=== PATIENT | female | born 1960 | race Caucasian/White ===

== ENCOUNTER 2016-05-24 20:24 | Emergency (ER) | payer BC ==
[2016-05-24] MEDS ORDERED: IPRATROPIUM 0.5MG/ALBUTEROL 2.5MG INH SOL UD 3ML (DUONEB)(J7620) As Ordered ONE (20:42)
[2016-05-24] MEDS ORDERED: methylPREDNISolone INJ 125 MG/2 ML VIAL (J2930) As Ordered ONE (20:52)
[2016-05-24] MEDS ORDERED: ACETAMINOPHEN 325 MG TAB As Ordered ONE (20:52)
[2016-05-24 21:23] LABS: BASO # 0.1 K/mm3 (0.0-0.2); EOS # 0.1 K/mm3 (0.0-0.50); EOS % 1.1 % (0.0-3.0); LARGE UNSTAINED CELL # 0.1 K/mm3 (0.0-0.4); LARGE UNSTAINED CELL % 1.1 % (0.0-4.0); LYMPH # 0.9 K/mm3 (1.5-4.5); LYMPH % 9.9 % (24.0-44.0); MEAN CORPUSCULAR HGB CONC 32.4 g/dl (32.0-36.5); MEAN CORPUSCULAR VOLUME 98.6 fl (80.0-96.0); MONO # 0.6 K/mm3 (0.0-0.8); MONO % 7.1 % (0.0-5.0); NEUTROPHILS # 6.4 K/mm3 (1.8-7.7); NEUTROPHILS % 79.8 % (36.0-66.0); PLATELET COUNT, AUTOMATED 259 k/mm3 (150-450)
[2016-05-24 21:43] LABS: ANION GAP 6 MEQ/L (8-16); BLOOD UREA NITROGEN 5 MG/DL (7-18); CALCIUM LEVEL 8.9 MG/DL (8.5-10.1); CARBON DIOXIDE LEVEL 30 MEQ/L (21-32); CHLORIDE LEVEL 103 MEQ/L (98-107); CREATININE FOR GFR 0.66 MG/DL (0.55-1.02); GLOMERULAR FILTRATION RATE > 60.0 (>51); GLUCOSE, FASTING 94 MG/DL (70-105); POTASSIUM SERUM 3.9 MEQ/L (3.5-5.1); SODIUM LEVEL 139 MEQ/L (136-145)
[2016-05-24] MEDS ORDERED: ALBUTEROL SULFATE 2.5 MG/0.5 ML INH NEB SOLN As Ordered ONE (22:08)
[2016-05-24] MEDS ORDERED: MOXIFLOXACIN 400 MG TAB As Ordered ONE (22:44)
--- NOTE | 2016-05-24 23:19 | EDDOCDS ---
Physician Documentation [facility] Name: Jose Puentes Age: 55 yrs Sex: Female : 1960 Arrival Date: 05/24/2016 Time: 20:24 Bed 14 Private MD: Sherron Valerio Disposition: 05/24/16 23:10 Discharged to Home/Self Care. Impression: Emphysema, Other forms of dyspnea. - Condition is Stable. - Discharge Instructions: Shortness of Breath. - Prescriptions for Moxifloxacin 400 mg Oral Tablet - take 1 tablet by ORAL route once daily; 5 tablet. Prednisone 10 mg Oral Tablet - take 1 tablet by ORAL route as directed Day1-3:6 po,day4-5:5 po,day6-7: 4 po,day8-9:3 po,vdn78-84:2 po,day 12-14:1 po; 49 tablet. - Medication Reconciliation, Local Pharmacy Hours form. - Follow up: Sherron Valerio; When: 4 - 5 days; Reason: Recheck today's complaints, Continuance of care. - Problem is an acute exacerbation. - Symptoms have improved. Historical: - Allergies: no known allergies; - Home Meds: 1. atenolol 25 mg Oral tab 1 tab once daily 2. BuSpar Oral 10 mg daily 3. levothyroxine 112 mcg oral tab 4. omeprazole 40 mg Oral cpDR 1 cap once daily - PMHx: Depression; Emphysema; graves disease; - PSHx: Hysterectomy; Cholecystectomy; Appendectomy; - Social history: Smoking status: Patient uses tobacco products, current every day smoker. No barriers to communication noted, The patient speaks fluent Cuban. - Family history: Pertinent for recent exposure to family members with viral URI.. - : The pt / caregiver states he / she is not on anticoagulants. Home medication list is obtained from the patient. - Exposure Risk Screening:: None identified. 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 4 in. (162.56 cm) (R); Pain 0/10; 21:29 BP 119 / 63 (auto/); mv5 21:29 Pulse 144 MON; Pulse Ox 93% ; mv5 21:44 BP 126 / 72 (auto/); mv5 21:45 Pulse 128 MON; Pulse Ox 92% ; mv5 21:59 BP 128 / 71 (auto/); mv5 22:00 Pulse 126 MON; Pulse Ox 90% ; mv5 22:14 BP 113 / 70 (auto/); mv5 22:15 Pulse 132 MON; Pulse Ox 88% ; mv5 22:29 BP 101 / 59 (auto/); mv5 22:30 Pulse 140 MON; Pulse Ox 87% ; mv5 22:44 BP 100 / 61 (auto/); mv5 22:44 Pulse 140 MON; Pulse Ox 87% ; mv5 20:26 Body Mass Index 18.54 (48.99 kg, 162.56 cm) gr2 MDM: 20:40 Solu-MEDROL 125 mg IVP once ordered. ke 20:40 -Blood Culture (Adults Only), peripheral from different site, or from device/port/PICC ke etc. if present ordered. 20:40 Senior Industrial Engineer/Pulse Ox/q 15 min VS ordered. ke 20:40 IV Saline Lock ordered. ke 20:40 Oxygen at 4L/Min NC or Home dosage ordered. ke 20:40 Rhythm Strip to chart ordered. ke 20:40 Albuterol-Ipratropium 1 neb Nebulizer every 20 minutes x3 ordered. ke 20:40 Call Respiratory ordered. ke 20:40 Acetaminophen Tablet 650 mg PO once ordered. ke 20:40 -Blood Culture Ordered. EDMS 20:40 Basic Metabolic Profile Ordered. EDMS 20:40 CBC with Diff Ordered. EDMS 20:40 Chest, 2 View (pa\E\lat) Ordered. EDMS 20:42 Call Respiratory complete. kb5 20:44 -Blood Culture (Adults Only), peripheral from different site, or from device/port/PICC kb5 etc. if present complete. 20:45 BLOOD CULTURES Ordered. EDMS 21:19 Financial registration complete. zo 21:47 Levalbuterol 1.25 mg Nebulizer once ordered. ke 21:48 Basic Metabolic Profile Reviewed. ke 21:48 CBC with Diff Reviewed. ke 22:02 [place] [place] Agreement was scanned into [email or web address] and attached to record. zo 22:37 Moxifloxacin 400 mg PO once ordered. ke Administered Medications: 20:46 Drug: Albuterol-Ipratropium 1 neb [ipratropium-albuterol 0.5 mg-3 mg(2.5 mg base)/3 mL dk nebulization soln (1 neb)] Route: Nebulizer; 20:57 Drug: Solu-MEDROL 125 mg [Solu-Medrol 500 mg intravenous solution (125 mg)] Route: IVP; mv5 Site: left antecubital; 20:57 Drug: Acetaminophen 650 mg [acetaminophen 325 mg tablet (2 tabs)] Route: PO; mv5 22:46 Follow up: Response: No Adverse Reaction mv5 21:07 Drug: Albuterol-Ipratropium 1 neb [ipratropium-albuterol 0.5 mg-3 mg(2.5 mg base)/3 mL dk nebulization soln (1 neb)] Route: Nebulizer; 21:17 Drug: Albuterol-Ipratropium 1 neb [ipratropium-albuterol 0.5 mg-3 mg(2.5 mg base)/3 mL dk nebulization soln (1 neb)] Route: Nebulizer; 22:46 Drug: Moxifloxacin 400 mg [moxifloxacin 400 mg tablet (1 tabs)] Route: PO; mv5 23:18 Follow up: Response: No Adverse Reaction mv5 Signatures: Dispatcher [employer]Host EDMS Beck Rivers, REMELT WORKER REMELT WORKER Cristine Akers Kristopher, HUB INVENTORY SPECIALIST HUB INVENTORY SPECIALIST kb5 Shahla Solomon RN RN 5 Ysabel Tracey RN RN mv5 Krysten Coello The chart was reviewed and I authenticate all verbal orders and agree with the evaluation and treatment provided.Attachments: 22:02 [facility] Payment Agreement zo MTDD
--- NOTE | 2016-05-24 23:19 | EDDOCDS ---
Nurse's Notes 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 Adult Sepsis Screening: The patient does not have new or worsening altered mentation. Patient's respiratory rate is less than 22. Systolic blood pressure is greater than 100. Patient has a qSOFA score of 0- Negative Sepsis Screen. Suicide/Homicide risk assessment- the patient denies having any suicidal and/or homicidal ideations and does not present with any other emotional, behavioral or mental health complaints. Status: Patient is not a hotel or motel room service supervisor or dependent. Transition of care: patient was not received from another setting of care. 20:30 Acuity: MELIZA Level 3 tm5 20:30 Method Of Arrival: Walkin/Carried/Asstd tm5 20:32 Red Flag criteria, Vitals stable, pt. appears in no acute distress. Triage and then lf1 direct to room. Charge nurse notified. Triage Assessment: 20:33 General: Appears in no apparent distress, Behavior is appropriate for age, cooperative. tm5 Pain: Denies pain. Pt Declines HIV testing. Neurological: Level of Consciousness is awake, alert, Oriented to person, place, time. Respiratory: Onset: The symptoms/episode began/occurred yesterday, Airway is patent Respiratory effort is even, unlabored, Respiratory pattern is regular, symmetrical. Derm: Skin is pink, warm & dry. 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 atenolol 25 mg Oral tab 1 tab once daily 2. BuSpar Oral 10 mg daily 3. levothyroxine 112 mcg oral tab 4. omeprazole 40 mg Oral cpDR 1 cap once daily - PMHx: Depression; Emphysema; graves disease; - PSHx: Hysterectomy; Cholecystectomy; Appendectomy; - Social history: Smoking status: Patient uses tobacco products, current every day smoker. No barriers to communication noted, The patient speaks fluent Angolan. - Family history: Pertinent for recent exposure to family members with viral URI.. - : The pt / caregiver states he / she is not on anticoagulants. Home medication list is obtained from the patient. - Exposure Risk Screening:: None identified. Screenin:33 Screening information is obtained from the patient. Fall risk: No risks identified. tm5 Assistance ADL's: requires no assistance with activities of daily living. Abuse/DV Screen: The patient / caregiver reports he/she is: not in a situation that causes fear, pain or injury. Nutritional screening: No deficits noted. Advance Directives: Currently, there is no health care proxy. There is no active DNR order. home support is adequate. Assessment: 21:14 General: Appears slender, uncomfortable, well nourished. Pain: Denies pain. mv5 Neurological: Level of Consciousness is awake, alert, Oriented to person, place, time. Cardiovascular: Capillary refill is > 3 seconds Heart tones S1 S2 present Rhythm is sinus tachycardia No ectopy. Cardiovascular: Chest pain is denied. Respiratory: Airway is patent Respiratory effort is even, labored, Respiratory pattern is regular, symmetrical, Breath sounds are diminished bilaterally. in left posterior lower lobe and right posterior lower lobe. GI: No deficits noted. : No deficits noted. Derm: Skin is pink, warm & dry. 21:49 General: Appears in no apparent distress, Pt notes mild improvement of symptoms mv5 following nebulizers.. Neurological: No deficits noted. Cardiovascular: Rhythm is sinus tachycardia No ectopy. Respiratory: Airway is patent Respiratory effort is even, unlabored, Respiratory pattern is regular, symmetrical. Derm: Skin is pink, warm & dry. 22:47 General: Appears in no apparent distress, comfortable, Behavior is cooperative, mv5 pleasant. Pain: Denies pain. Neurological: No deficits noted. Cardiovascular: Rhythm is sinus tachycardia No ectopy. Chest pain is denied. Respiratory: Airway is patent Respiratory effort is even, unlabored, Respiratory pattern is regular, symmetrical, Pt reports significant improvement of respiratory symptoms. Derm: Skin is pink, warm & dry. 23:04 General: Appears in no apparent distress, Pt ambulated in hallway with sP02 monitoring, mv5 89-91% on room air without increased work of breathing or c/o shortness of breath. Provider aware.. Pain: Denies pain. Respiratory: Airway is patent Respiratory effort is even, unlabored, Respiratory pattern is regular, symmetrical. Derm: Skin is pink, warm & dry. Vital Signs: 20:26 BP 168 / 99; Pulse 105; Resp 20 S; Temp 100.5(O); Pulse Ox 95% on R/A; Weight 48.99 kg gr2 (R); Height 5 ft. 4 in. (162.56 cm) (R); Pain 0/10; 21:29 BP 119 / 63 (auto/); mv5 21:29 Pulse 144 MON; Pulse Ox 93% ; mv5 21:44 BP 126 / 72 (auto/); mv5 21:45 Pulse 128 MON; Pulse Ox 92% ; mv5 21:59 BP 128 / 71 (auto/); mv5 22:00 Pulse 126 MON; Pulse Ox 90% ; mv5 22:14 BP 113 / 70 (auto/); mv5 22:15 Pulse 132 MON; Pulse Ox 88% ; mv5 22:29 BP 101 / 59 (auto/); mv5 22:30 Pulse 140 MON; Pulse Ox 87% ; mv5 22:44 BP 100 / 61 (auto/); mv5 22:44 Pulse 140 MON; Pulse Ox 87% ; mv5 20:26 Body Mass Index 18.54 (48.99 kg, 162.56 cm) gr2 Vitals: 20:26 Log In Time: May 24, 2016 at 20:26. RN notified that patient meets Red Flag gr2 criteria. ED Course: 20:26 Patient visited by Cristina Gooden. gr2 20:26 Sherron Valerio is Private Physician. gr2 20:26 Patient moved to Waiting gr2 20:28 Patient visited by Cristina Gooden. gr2 20:30 Patient moved to Pre RCE gr2 20:31 Triage Initiated tm5 20:34 Ysabel Tracey,RN is Primary Nurse. tm5 20:34 Patient moved to 14 tm5 20:36 [facility] ke 20:36 Patient visited by Beck Rivers FNP. ke 20:36 Patient visited by Beck Rivers FNP. ke 20:57 -Blood Culture Sent. mv5 20:57 Basic Metabolic Profile Sent. mv5 20:57 CBC with Diff Sent. mv5 21:13 BLOOD CULTURES Sent. mv5 21:14 The patient / caregiver is instructed regarding the plan of care and ED course. mv5 21:14 Inserted saline lock: 18 gauge in left antecubital area and blood collected. The mv5 patient tolerated the procedure well. 21:25 Patient visited by Beck Rivers FNP. ke 21:46 Patient visited by Beck Rivers FNP. ke 22:02 [facility] Payment Agreement was scanned into [employer] and attached to record. zo 22:18 Patient visited by Ciaran Albarado PCA. stevenv 22:40 Patient visited by Beck Rivers FNP. ke 23:01 Patient visited by Beck Rivers FNP. ke 23:09 Sherron Valerio is Referral Physician. ke 23:16 Discontinued intact, bleeding controlled, pressure dressing applied, No mv5 redness/swelling at site. No procedures done that require assistance. Administered Medications: 20:46 Drug: Albuterol-Ipratropium 1 neb [ipratropium-albuterol 0.5 mg-3 mg(2.5 mg base)/3 mL dk nebulization soln (1 neb)] Route: Nebulizer; 20:57 Drug: Solu-MEDROL 125 mg [Solu-Medrol 500 mg intravenous solution (125 mg)] Route: IVP; mv5 Site: left antecubital; 20:57 Drug: Acetaminophen 650 mg [acetaminophen 325 mg tablet (2 tabs)] Route: PO; mv5 22:46 Follow up: Response: No Adverse Reaction mv5 21:07 Drug: Albuterol-Ipratropium 1 neb [ipratropium-albuterol 0.5 mg-3 mg(2.5 mg base)/3 mL dk nebulization soln (1 neb)] Route: Nebulizer; 21:17 Drug: Albuterol-Ipratropium 1 neb [ipratropium-albuterol 0.5 mg-3 mg(2.5 mg base)/3 mL dk nebulization soln (1 neb)] Route: Nebulizer; 22:46 Drug: Moxifloxacin 400 mg [moxifloxacin 400 mg tablet (1 tabs)] Route: PO; mv5 23:18 Follow up: Response: No Adverse Reaction mv5 RT: 20:46 Initial Med Neb Given as ordered Patient was instructed and evaluated on procedure dk Patient tolerated procedure well without adverse effect. Oxygen is room air. Respiratory: Breath sounds are diminished bilaterally. 21:07 Subsequent Med Neb Given as ordered Patient tolerated procedure well without adverse dk effect. Oxygen is room air. Respiratory: Breath sounds are coarse Breath sounds are diminished. 21:17 Subsequent Med Neb Given as ordered Patient tolerated procedure well without adverse dk effect. Oxygen is room air. Respiratory: Breath sounds are coarse Breath sounds are diminished. Order Results: Lab Order: Basic Metabolic Profile; SPEC'M 05/24/16 20:45 Test: GLUCOSE, FASTING; Value: 94; Range: 70-105; Units: MG/DL; Status: F Test: BLOOD UREA NITROGEN; Value: 5; Range: 7-18; Abnormal: Below low normal; Units: MG/DL; Status: F Test: CREATININE FOR GFR; Value: 0.66; Range: 0.55-1.02; Units: MG/DL; Status: F Test: GLOMERULAR FILTRATION RATE; Value: > 60.0; Range: >51; Status: F Test: SODIUM LEVEL; Value: 139; Range: 136-145; Units: MEQ/L; Status: F Test: POTASSIUM SERUM; Value: 3.9; Range: 3.5-5.1; Units: MEQ/L; Status: F Test: CHLORIDE LEVEL; Value: 103; Range: 98-107; Units: MEQ/L; Status: F Test: CARBON DIOXIDE LEVEL; Value: 30; Range: 21-32; Units: MEQ/L; Status: F Test: ANION GAP; Value: 6; Range: 8-16; Abnormal: Below low normal; Units: MEQ/L; Status: F Test: CALCIUM LEVEL; Value: 8.9; Range: 8.5-10.1; Units: MG/DL; Status: F Test Note: ; Units are mL/min/1.73 m2 Chronic Kidney Disease Staging per NKF: Stage I & II GFR >=60 Normal to Mildly Decreased Stage III GFR 30-59 Moderately Decreased Stage IV GFR 15-29 Severely Decreased Stage V GFR <15 Very Little GFR Left ESRD GFR <15 on HUMAN SERVICE SPECIALIST Lab Order: CBC with Diff; SPEC'M 05/24/16 20:45 Test: WHITE BLOOD COUNT; Value: 8.0; Range: 4.0-10.0; Units: K/mm3; Status: F Test: RED BLOOD COUNT; Value: 5.12; Range: 4.00-5.40; Units: M/mm3; Status: F Test: HEMOGLOBIN; Value: 16.4; Range: 12.0-16.0; Abnormal: Above high normal; Units: g/dl; Status: F Test: HEMATOCRIT; Value: 50.5; Range: 36.0-47.0; Abnormal: Above high normal; Units: %; Status: F Test: MEAN CORPUSCULAR VOLUME; Value: 98.6; Range: 80.0-96.0; Abnormal: Above high normal; Units: fl; Status: F Test: MEAN CORPUSCULAR HEMOGLOBIN; Value: 32.0; Range: 27.0-33.0; Units: pg; Status: F Test: MEAN CORPUSCULAR HGB CONC; Value: 32.4; Range: 32.0-36.5; Units: g/dl; Status: F Test: RED CELL DISTRIBUTION WIDTH; Value: 12.0; Range: 11.5-14.5; Units: %; Status: F Test: PLATELET COUNT, AUTOMATED; Value: 259; Range: 150-450; Units: k/mm3; Status: F Test: NEUTROPHILS %; Value: 79.8; Range: 36.0-66.0; Abnormal: Above high normal; Units: %; Status: F Test: LYMPH %; Value: 9.9; Range: 24.0-44.0; Abnormal: Below low normal; Units: %; Status: F Test: MONO %; Value: 7.1; Range: 0.0-5.0; Abnormal: Above high normal; Units: %; Status: F Test: EOS %; Value: 1.1; Range: 0.0-3.0; Units: %; Status: F Test: BASO %; Value: 1.0; Range: 0.0-1.0; Units: %; Status: F Test: LARGE UNSTAINED CELL %; Value: 1.1; Range: 0.0-4.0; Units: %; Status: F Test: NEUTROPHILS #; Value: 6.4; Range: 1.8-7.7; Units: K/mm3; Status: F Test: LYMPH #; Value: 0.9; Range: 1.5-4.5; Abnormal: Below low normal; Units: K/mm3; Status: F Test: MONO #; Value: 0.6; Range: 0.0-0.8; Units: K/mm3; Status: F Test: EOS #; Value: 0.1; Range: 0.0-0.50; Units: K/mm3; Status: F Test: BASO #; Value: 0.1; Range: 0.0-0.2; Units: K/mm3; Status: F Test: LARGE UNSTAINED CELL #; Value: 0.1; Range: 0.0-0.4; Units: K/mm3; Status: F Outcome: 23:10 Discharge ordered by Provider. amy 23:16 Discharge Assessment: Patient awake, alert and oriented x 3. No cognitive and/or mv5 functional deficits noted. Patient verbalized understanding of disposition instructions. patient administered narcotics - no. The following High Risk Discharge criteria are identified: None. Discharged to home with family. Condition: stable. Discharge instructions given to patient, Demonstrated understanding of Pt was receptive of discharge instructions/ teaching. Prescriptions given X 2. No special radiology studies were completed. Property sent home with patient. 23:18 Patient left the ED. mv5 Signatures: Beck Rivers, SEISMOMETER OPERATOR SEISMOMETER OPERATOR Krysten Francis,RT RT Cristine Vasquez Lisa,RN RN lf1 Cristina Gooden gr2 Ciaran Albarado, CAPACITY MANAGER CAPACITY MANAGER Shahla Franks,RN RN tm5 Ysabel Tracey,RN RN mv5 MTDD
--- NOTE | 2016-05-25 07:55 | REP ---
TWO VIEWS OF THE CHEST: The present study is compared to that of 03/27/2016. The heart, great vessels, and remaining mediastinum are normal. The lung volumes show significant increase with flattening of the hemidiaphragms. There is no consolidation or opacities of the lungs. Degenerative spurs are noted in the spine. IMPRESSION: The findings are consistent with obstructive airway disease. No evidence for pneumonia on this study. Unreviewed
--- NOTE | 2016-05-27 00:18 | EDDOCDS ---
Physician Documentation [facility] Name: Jose Puentes Age: 55 yrs Sex: Female : 1960 Arrival Date: 05/24/2016 Time: 20:24 Bed 14 Private MD: Sherron Valerio Disposition: 05/24/16 23:10 Discharged to Home/Self Care. Impression: Emphysema, Other forms of dyspnea. - Condition is Stable. - Discharge Instructions: Shortness of Breath. - Prescriptions for Moxifloxacin 400 mg Oral Tablet - take 1 tablet by ORAL route once daily; 5 tablet. Prednisone 10 mg Oral Tablet - take 1 tablet by ORAL route as directed Day1-3:6 po,day4-5:5 po,day6-7: 4 po,day8-9:3 po,rze86-74:2 po,day 12-14:1 po; 49 tablet. - Medication Reconciliation, Local Pharmacy Hours form. - Follow up: Sherron Valerio; When: 4 - 5 days; Reason: Recheck today's complaints, Continuance of care. - Problem is an acute exacerbation. - Symptoms have improved. Historical: - Allergies: no known allergies; - Home Meds: 1. atenolol 25 mg Oral tab 1 tab once daily 2. BuSpar Oral 10 mg daily 3. levothyroxine 112 mcg oral tab 4. omeprazole 40 mg Oral cpDR 1 cap once daily - PMHx: Depression; Emphysema; graves disease; - PSHx: Hysterectomy; Cholecystectomy; Appendectomy; - Social history: Smoking status: Patient uses tobacco products, current every day smoker. No barriers to communication noted, The patient speaks fluent Hebrew. - Family history: Pertinent for recent exposure to family members with viral URI.. - : The pt / caregiver states he / she is not on anticoagulants. Home medication list is obtained from the patient. - Exposure Risk Screening:: None identified. 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 4 in. (162.56 cm) (R); Pain 0/10; 21:29 BP 119 / 63 (auto/); mv5 21:29 Pulse 144 MON; Pulse Ox 93% ; mv5 21:44 BP 126 / 72 (auto/); mv5 21:45 Pulse 128 MON; Pulse Ox 92% ; mv5 21:59 BP 128 / 71 (auto/); mv5 22:00 Pulse 126 MON; Pulse Ox 90% ; mv5 22:14 BP 113 / 70 (auto/); mv5 22:15 Pulse 132 MON; Pulse Ox 88% ; mv5 22:29 BP 101 / 59 (auto/); mv5 22:30 Pulse 140 MON; Pulse Ox 87% ; mv5 22:44 BP 100 / 61 (auto/); mv5 22:44 Pulse 140 MON; Pulse Ox 87% ; mv5 20:26 Body Mass Index 18.54 (48.99 kg, 162.56 cm) gr2 MDM: 20:40 Solu-MEDROL 125 mg IVP once ordered. ke 20:40 -Blood Culture (Adults Only), peripheral from different site, or from device/port/PICC ke etc. if present ordered. 20:40 Bookmaker Map/Pulse Ox/q 15 min VS ordered. ke 20:40 IV Saline Lock ordered. ke 20:40 Oxygen at 4L/Min NC or Home dosage ordered. ke 20:40 Rhythm Strip to chart ordered. ke 20:40 Albuterol-Ipratropium 1 neb Nebulizer every 20 minutes x3 ordered. ke 20:40 Call Respiratory ordered. ke 20:40 Acetaminophen Tablet 650 mg PO once ordered. ke 20:40 -Blood Culture Ordered. EDMS 20:40 Basic Metabolic Profile Ordered. EDMS 20:40 CBC with Diff Ordered. EDMS 20:40 Chest, 2 View (pa\E\lat) Ordered. EDMS 20:42 Call Respiratory complete. kb5 20:44 -Blood Culture (Adults Only), peripheral from different site, or from device/port/PICC kb5 etc. if present complete. 20:45 BLOOD CULTURES Ordered. EDMS 21:19 Financial registration complete. zo 21:47 Levalbuterol 1.25 mg Nebulizer once ordered. ke 21:48 Basic Metabolic Profile Reviewed. ke 21:48 CBC with Diff Reviewed. ke 22:02 [facility] [place] Agreement was scanned into [employer] and attached to record. zo 22:37 Moxifloxacin 400 mg PO once ordered. ke 05/25 19:30 T-Sheet-- Draft Copy was scanned into [employer] and attached to record. klr Administered Medications: 05/24 20:46 Drug: Albuterol-Ipratropium 1 neb [ipratropium-albuterol 0.5 mg-3 mg(2.5 mg base)/3 mL dk nebulization soln (1 neb)] Route: Nebulizer; 20:57 Drug: Solu-MEDROL 125 mg [Solu-Medrol 500 mg intravenous solution (125 mg)] Route: IVP; mv5 Site: left antecubital; 20:57 Drug: Acetaminophen 650 mg [acetaminophen 325 mg tablet (2 tabs)] Route: PO; mv5 22:46 Follow up: Response: No Adverse Reaction mv5 21:07 Drug: Albuterol-Ipratropium 1 neb [ipratropium-albuterol 0.5 mg-3 mg(2.5 mg base)/3 mL dk nebulization soln (1 neb)] Route: Nebulizer; 21:17 Drug: Albuterol-Ipratropium 1 neb [ipratropium-albuterol 0.5 mg-3 mg(2.5 mg base)/3 mL dk nebulization soln (1 neb)] Route: Nebulizer; 22:46 Drug: Moxifloxacin 400 mg [moxifloxacin 400 mg tablet (1 tabs)] Route: PO; mv5 23:18 Follow up: Response: No Adverse Reaction mv5 Signatures: Dispatcher [employer] EDMS Beck Rivers, SUPERINTENDENT NONSELLING SUPERINTENDENT NONSELLING Cristine Akers Kristopher, GUEST SERVICES COORDINATOR GUEST SERVICES COORDINATOR kb5 Dafne Noriegar Shahla Solomon,RN RN tm5 Ysabel Tracey RN RN mv5 Krysten Coello The chart was reviewed and I authenticate all verbal orders and agree with the evaluation and treatment provided.Attachments: 22:02 [facility] Payment Agreement zo 05/25 19:30 T-Sheet-- Draft Copy klr Chart Complete MTDD
--- NOTE | 2016-05-27 00:18 | EDDOCDS ---
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 Adult Sepsis Screening: The patient does not have new or worsening altered mentation. Patient's respiratory rate is less than 22. Systolic blood pressure is greater than 100. Patient has a qSOFA score of 0- Negative Sepsis Screen. Suicide/Homicide risk assessment- the patient denies having any suicidal and/or homicidal ideations and does not present with any other emotional, behavioral or mental health complaints. Status: Patient is not a digital field service technician or dependent. Transition of care: patient was not received from another setting of care. 20:30 Acuity: MELIZA Level 3 tm5 20:30 Method Of Arrival: Walkin/Carried/Asstd tm5 20:32 Red Flag criteria, Vitals stable, pt. appears in no acute distress. Triage and then lf1 direct to room. Charge nurse notified. Triage Assessment: 20:33 General: Appears in no apparent distress, Behavior is appropriate for age, cooperative. tm5 Pain: Denies pain. Pt Declines HIV testing. Neurological: Level of Consciousness is awake, alert, Oriented to person, place, time. Respiratory: Onset: The symptoms/episode began/occurred yesterday, Airway is patent Respiratory effort is even, unlabored, Respiratory pattern is regular, symmetrical. Derm: Skin is pink, warm & dry. 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 atenolol 25 mg Oral tab 1 tab once daily 2. BuSpar Oral 10 mg daily 3. levothyroxine 112 mcg oral tab 4. omeprazole 40 mg Oral cpDR 1 cap once daily - PMHx: Depression; Emphysema; graves disease; - PSHx: Hysterectomy; Cholecystectomy; Appendectomy; - Social history: Smoking status: Patient uses tobacco products, current every day smoker. No barriers to communication noted, The patient speaks fluent Montserratian. - Family history: Pertinent for recent exposure to family members with viral URI.. - : The pt / caregiver states he / she is not on anticoagulants. Home medication list is obtained from the patient. - Exposure Risk Screening:: None identified. Screenin:33 Screening information is obtained from the patient. Fall risk: No risks identified. tm5 Assistance ADL's: requires no assistance with activities of daily living. Abuse/DV Screen: The patient / caregiver reports he/she is: not in a situation that causes fear, pain or injury. Nutritional screening: No deficits noted. Advance Directives: Currently, there is no health care proxy. There is no active DNR order. home support is adequate. Assessment: 21:14 General: Appears slender, uncomfortable, well nourished. Pain: Denies pain. mv5 Neurological: Level of Consciousness is awake, alert, Oriented to person, place, time. Cardiovascular: Capillary refill is > 3 seconds Heart tones S1 S2 present Rhythm is sinus tachycardia No ectopy. Cardiovascular: Chest pain is denied. Respiratory: Airway is patent Respiratory effort is even, labored, Respiratory pattern is regular, symmetrical, Breath sounds are diminished bilaterally. in left posterior lower lobe and right posterior lower lobe. GI: No deficits noted. : No deficits noted. Derm: Skin is pink, warm & dry. 21:49 General: Appears in no apparent distress, Pt notes mild improvement of symptoms mv5 following nebulizers.. Neurological: No deficits noted. Cardiovascular: Rhythm is sinus tachycardia No ectopy. Respiratory: Airway is patent Respiratory effort is even, unlabored, Respiratory pattern is regular, symmetrical. Derm: Skin is pink, warm & dry. 22:47 General: Appears in no apparent distress, comfortable, Behavior is cooperative, mv5 pleasant. Pain: Denies pain. Neurological: No deficits noted. Cardiovascular: Rhythm is sinus tachycardia No ectopy. Chest pain is denied. Respiratory: Airway is patent Respiratory effort is even, unlabored, Respiratory pattern is regular, symmetrical, Pt reports significant improvement of respiratory symptoms. Derm: Skin is pink, warm & dry. 23:04 General: Appears in no apparent distress, Pt ambulated in hallway with sP02 monitoring, mv5 89-91% on room air without increased work of breathing or c/o shortness of breath. Provider aware.. Pain: Denies pain. Respiratory: Airway is patent Respiratory effort is even, unlabored, Respiratory pattern is regular, symmetrical. Derm: Skin is pink, warm & dry. Vital Signs: 20:26 BP 168 / 99; Pulse 105; Resp 20 S; Temp 100.5(O); Pulse Ox 95% on R/A; Weight 48.99 kg gr2 (R); Height 5 ft. 4 in. (162.56 cm) (R); Pain 0/10; 21:29 BP 119 / 63 (auto/); mv5 21:29 Pulse 144 MON; Pulse Ox 93% ; mv5 21:44 BP 126 / 72 (auto/); mv5 21:45 Pulse 128 MON; Pulse Ox 92% ; mv5 21:59 BP 128 / 71 (auto/); mv5 22:00 Pulse 126 MON; Pulse Ox 90% ; mv5 22:14 BP 113 / 70 (auto/); mv5 22:15 Pulse 132 MON; Pulse Ox 88% ; mv5 22:29 BP 101 / 59 (auto/); mv5 22:30 Pulse 140 MON; Pulse Ox 87% ; mv5 22:44 BP 100 / 61 (auto/); mv5 22:44 Pulse 140 MON; Pulse Ox 87% ; mv5 20:26 Body Mass Index 18.54 (48.99 kg, 162.56 cm) gr2 Vitals: 20:26 Log In Time: May 24, 2016 at 20:26. RN notified that patient meets Red Flag gr2 criteria. ED Course: 20:26 Patient visited by Cristina Gooden. gr2 20:26 Sherron Valerio is Private Physician. gr2 20:26 Patient moved to Waiting gr2 20:28 Patient visited by Cristina Gooden. gr2 20:30 Patient moved to Pre RCE gr2 20:31 Triage Initiated tm5 20:34 Ysabel Tracey,RN is Primary Nurse. tm5 20:34 Patient moved to 14 tm5 20:36 [facility] Rivers F[facility] ke 20:36 Patient visited by Beck Rivers FNP. ke 20:36 Patient visited by Beck Rivers FNP. ke 20:57 -Blood Culture Sent. mv5 20:57 Basic Metabolic Profile Sent. mv5 20:57 CBC with Diff Sent. mv5 21:13 BLOOD CULTURES Sent. mv5 21:14 The patient / caregiver is instructed regarding the plan of care and ED course. mv5 21:14 Inserted saline lock: 18 gauge in left antecubital area and blood collected. The mv5 patient tolerated the procedure well. 21:25 Patient visited by Beck Rivers FNP. ke 21:46 Patient visited by Beck Rivers FNP. ke 22:02 [facility] [place] Payment Agreement was scanned into [employer] and attached to record. zo 22:18 Patient visited by Ciaran Albarado PCA. jmv 22:40 Patient visited by Beck Rivers FNP. ke 23:01 Patient visited by Beck Rivers FNP. ke 23:09 Sherron Valerio is Referral Physician. ke 23:16 Discontinued intact, bleeding controlled, pressure dressing applied, No mv5 redness/swelling at site. No procedures done that require assistance. 05/25 08:33 Chest, 2 View (pa\E\lat) Returned. EDMS 19:30 T-Sheet-- Draft Copy was scanned into [employer] and attached to record. klr Administered Medications: 05/24 20:46 Drug: Albuterol-Ipratropium 1 neb [ipratropium-albuterol 0.5 mg-3 mg(2.5 mg base)/3 mL dk nebulization soln (1 neb)] Route: Nebulizer; 20:57 Drug: Solu-MEDROL 125 mg [Solu-Medrol 500 mg intravenous solution (125 mg)] Route: IVP; mv5 Site: left antecubital; 20:57 Drug: Acetaminophen 650 mg [acetaminophen 325 mg tablet (2 tabs)] Route: PO; mv5 22:46 Follow up: Response: No Adverse Reaction mv5 21:07 Drug: Albuterol-Ipratropium 1 neb [ipratropium-albuterol 0.5 mg-3 mg(2.5 mg base)/3 mL dk nebulization soln (1 neb)] Route: Nebulizer; 21:17 Drug: Albuterol-Ipratropium 1 neb [ipratropium-albuterol 0.5 mg-3 mg(2.5 mg base)/3 mL dk nebulization soln (1 neb)] Route: Nebulizer; 22:46 Drug: Moxifloxacin 400 mg [moxifloxacin 400 mg tablet (1 tabs)] Route: PO; mv5 23:18 Follow up: Response: No Adverse Reaction mv5 RT: 20:46 Initial Med Neb Given as ordered Patient was instructed and evaluated on procedure dk Patient tolerated procedure well without adverse effect. Oxygen is room air. Respiratory: Breath sounds are diminished bilaterally. 21:07 Subsequent Med Neb Given as ordered Patient tolerated procedure well without adverse dk effect. Oxygen is room air. Respiratory: Breath sounds are coarse Breath sounds are diminished. 21:17 Subsequent Med Neb Given as ordered Patient tolerated procedure well without adverse dk effect. Oxygen is room air. Respiratory: Breath sounds are coarse Breath sounds are diminished. Order Results: Lab Order: -Blood Culture; SPEC'M 05/24/16 20:45 Test: BLOOD CULTURE; Value: No growth after 24 hours . All specimens observed; Status: F Test: BLOOD CULTURE; Value: for 5 days. Results final at that time.; Status: F Test: BLOOD CULTURE; Value: No Growth after 48 hours. All Specimens observed; Status: F Test: BLOOD CULTURE; Value: for 7 days. Results final at that time.; Status: F Lab Order: Basic Metabolic Profile; SPEC'M 05/24/16 20:45 Test: GLUCOSE, FASTING; Value: 94; Range: 70-105; Units: MG/DL; Status: F Test: BLOOD UREA NITROGEN; Value: 5; Range: 7-18; Abnormal: Below low normal; Units: MG/DL; Status: F Test: CREATININE FOR GFR; Value: 0.66; Range: 0.55-1.02; Units: MG/DL; Status: F Test: GLOMERULAR FILTRATION RATE; Value: > 60.0; Range: >51; Status: F Test: SODIUM LEVEL; Value: 139; Range: 136-145; Units: MEQ/L; Status: F Test: POTASSIUM SERUM; Value: 3.9; Range: 3.5-5.1; Units: MEQ/L; Status: F Test: CHLORIDE LEVEL; Value: 103; Range: 98-107; Units: MEQ/L; Status: F Test: CARBON DIOXIDE LEVEL; Value: 30; Range: 21-32; Units: MEQ/L; Status: F Test: ANION GAP; Value: 6; Range: 8-16; Abnormal: Below low normal; Units: MEQ/L; Status: F Test: CALCIUM LEVEL; Value: 8.9; Range: 8.5-10.1; Units: MG/DL; Status: F Test Note: ; Units are mL/min/1.73 m2 Chronic Kidney Disease Staging per NKF: Stage I & II GFR >=60 Normal to Mildly Decreased Stage III GFR 30-59 Moderately Decreased Stage IV GFR 15-29 Severely Decreased Stage V GFR <15 Very Little GFR Left ESRD GFR <15 on [employer]JUNCT FACULTY MATHEMAT[employer] DEPARTMENT Lab Order: CBC with Diff; SPEC'M 05/24/16 20:45 Test: WHITE BLOOD COUNT; Value: 8.0; Range: 4.0-10.0; Units: K/mm3; Status: F Test: RED BLOOD COUNT; Value: 5.12; Range: 4.00-5.40; Units: M/mm3; Status: F Test: HEMOGLOBIN; Value: 16.4; Range: 12.0-16.0; Abnormal: Above high normal; Units: g/dl; Status: F Test: HEMATOCRIT; Value: 50.5; Range: 36.0-47.0; Abnormal: Above high normal; Units: %; Status: F Test: MEAN CORPUSCULAR VOLUME; Value: 98.6; Range: 80.0-96.0; Abnormal: Above high normal; Units: fl; Status: F Test: MEAN CORPUSCULAR HEMOGLOBIN; Value: 32.0; Range: 27.0-33.0; Units: pg; Status: F Test: MEAN CORPUSCULAR HGB CONC; Value: 32.4; Range: 32.0-36.5; Units: g/dl; Status: F Test: RED CELL DISTRIBUTION WIDTH; Value: 12.0; Range: 11.5-14.5; Units: %; Status: F Test: PLATELET COUNT, AUTOMATED; Value: 259; Range: 150-450; Units: k/mm3; Status: F Test: NEUTROPHILS %; Value: 79.8; Range: 36.0-66.0; Abnormal: Above high normal; Units: %; Status: F Test: LYMPH %; Value: 9.9; Range: 24.0-44.0; Abnormal: Below low normal; Units: %; Status: F Test: MONO %; Value: 7.1; Range: 0.0-5.0; Abnormal: Above high normal; Units: %; Status: F Test: EOS %; Value: 1.1; Range: 0.0-3.0; Units: %; Status: F Test: BASO %; Value: 1.0; Range: 0.0-1.0; Units: %; Status: F Test: LARGE UNSTAINED CELL %; Value: 1.1; Range: 0.0-4.0; Units: %; Status: F Test: NEUTROPHILS #; Value: 6.4; Range: 1.8-7.7; Units: K/mm3; Status: F Test: LYMPH #; Value: 0.9; Range: 1.5-4.5; Abnormal: Below low normal; Units: K/mm3; Status: F Test: MONO #; Value: 0.6; Range: 0.0-0.8; Units: K/mm3; Status: F Test: EOS #; Value: 0.1; Range: 0.0-0.50; Units: K/mm3; Status: F Test: BASO #; Value: 0.1; Range: 0.0-0.2; Units: K/mm3; Status: F Test: LARGE UNSTAINED CELL #; Value: 0.1; Range: 0.0-0.4; Units: K/mm3; Status: F Lab Order: BLOOD CULTURES; SPEC'M 05/24/16 21:05 Test: BLOOD CULTURE; Value: No growth after 24 hours . All specimens observed; Status: F Test: BLOOD CULTURE; Value: for 5 days. Results final at that time.; Status: F Test: BLOOD CULTURE; Value: No Growth after 48 hours. All Specimens observed; Status: F Test: BLOOD CULTURE; Value: for 7 days. Results final at that time.; Status: F Radiology Order: Chest, 2 View (pa\E\lat) Test: Chest, 2 View (pa\E\lat) REASON FOR EXAMINATION: Shortness of Breath; ; TWO VIEWS OF THE CHEST:; ; The present study is compared to that of 03/27/2016.; ; The heart, great vessels, and remaining mediastinum are normal. The lung volumes; show significant increase with flattening of the hemidiaphragms. There is no; consolidation or opacities of the lungs. Degenerative spurs are noted in the; spine.; ; IMPRESSION:; The findings are consistent with obstructive airway disease. No evidence for; pneumonia on this study.; ; ; ; Unreviewed; Outcome: 23:10 Discharge ordered by Provider. amy 23:16 Discharge Assessment: Patient awake, alert and oriented x 3. No cognitive and/or mv5 functional deficits noted. Patient verbalized understanding of disposition instructions. patient administered narcotics - no. The following High Risk Discharge criteria are identified: None. Discharged to home with family. Condition: stable. Discharge instructions given to patient, Demonstrated understanding of Pt was receptive of discharge instructions/ teaching. Prescriptions given X 2. No special radiology studies were completed. Property sent home with patient. 23:18 Patient left the ED. mv5 Signatures: Dispatcher [employer] EDMS Beck Rivers, TENTER FRAME OPERATOR TENTER FRAME OPERATOR Krysten Francis,RT RT Cristine Vasquez Lisa,RN RN lf1 Cristina Gooden gr2 Dafne Noriega Jose, NAFISA AGENT PRODUCER Shahla Franks,RN RN tm5 Ysabel Tracey,RN RN mv5 Chart Complete CHASIDY
--- NOTE | 2016-05-27 00:18 | EDDOCDS ---
Physician Documentation [facility] Name: Jose Puentes Age: 55 yrs Sex: Female : 1960 Arrival Date: 05/24/2016 Time: 20:24 Bed 14 Private MD: Sherron Valerio Disposition: 05/24/16 23:10 Discharged to Home/Self Care. Impression: Emphysema, Other forms of dyspnea. - Condition is Stable. - Discharge Instructions: Shortness of Breath. - Prescriptions for Moxifloxacin 400 mg Oral Tablet - take 1 tablet by ORAL route once daily; 5 tablet. Prednisone 10 mg Oral Tablet - take 1 tablet by ORAL route as directed Day1-3:6 po,day4-5:5 po,day6-7: 4 po,day8-9:3 po,[id number]:2 po,day 12-14:1 po; 49 tablet. - Medication Reconciliation, Local Pharmacy Hours form. - Follow up: Sherron Valerio; When: 4 - 5 days; Reason: Recheck today's complaints, Continuance of care. - Problem is an acute exacerbation. - Symptoms have improved. Historical: - Allergies: no known allergies; - Home Meds: 1. atenolol 25 mg Oral tab 1 tab once daily 2. BuSpar Oral 10 mg daily 3. levothyroxine 112 mcg oral tab 4. omeprazole 40 mg Oral cpDR 1 cap once daily - PMHx: Depression; Emphysema; graves disease; - PSHx: Hysterectomy; Cholecystectomy; Appendectomy; - Social history: Smoking status: Patient uses tobacco products, current every day smoker. No barriers to communication noted, The patient speaks fluent Irish. - Family history: Pertinent for recent exposure to family members with viral URI.. - : The pt / caregiver states he / she is not on anticoagulants. Home medication list is obtained from the patient. - Exposure Risk Screening:: None identified. 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 4 in. (162.56 cm) (R); Pain 0/10; 21:29 BP 119 / 63 (auto/); mv5 21:29 Pulse 144 MON; Pulse Ox 93% ; mv5 21:44 BP 126 / 72 (auto/); mv5 21:45 Pulse 128 MON; Pulse Ox 92% ; mv5 21:59 BP 128 / 71 (auto/); mv5 22:00 Pulse 126 MON; Pulse Ox 90% ; mv5 22:14 BP 113 / 70 (auto/); mv5 22:15 Pulse 132 MON; Pulse Ox 88% ; mv5 22:29 BP 101 / 59 (auto/); mv5 22:30 Pulse 140 MON; Pulse Ox 87% ; mv5 22:44 BP 100 / 61 (auto/); mv5 22:44 Pulse 140 MON; Pulse Ox 87% ; mv5 20:26 Body Mass Index 18.54 (48.99 kg, 162.56 cm) gr2 MDM: 20:40 Solu-MEDROL 125 mg IVP once ordered. ke 20:40 -Blood Culture (Adults Only), peripheral from different site, or from device/port/PICC ke etc. if present ordered. 20:40 Advertising Sales Manager/Pulse Ox/q 15 min VS ordered. ke 20:40 IV Saline Lock ordered. ke 20:40 Oxygen at 4L/Min NC or Home dosage ordered. ke 20:40 Rhythm Strip to chart ordered. ke 20:40 Albuterol-Ipratropium 1 neb Nebulizer every 20 minutes x3 ordered. ke 20:40 Call Respiratory ordered. ke 20:40 Acetaminophen Tablet 650 mg PO once ordered. ke 20:40 -Blood Culture Ordered. EDMS 20:40 Basic Metabolic Profile Ordered. EDMS 20:40 CBC with Diff Ordered. EDMS 20:40 Chest, 2 View (pa\E\lat) Ordered. EDMS 20:42 Call Respiratory complete. kb5 20:44 -Blood Culture (Adults Only), peripheral from different site, or from device/port/PICC kb5 etc. if present complete. 20:45 BLOOD CULTURES Ordered. EDMS 21:19 Financial registration complete. zo 21:47 Levalbuterol 1.25 mg Nebulizer once ordered. ke 21:48 Basic Metabolic Profile Reviewed. ke 21:48 CBC with Diff Reviewed. ke 22:02 [facility] Payment Agreement was scanned into [employer] and attached to record. zo 22:37 Moxifloxacin 400 mg PO once ordered. ke 05/25 19:30 T-Sheet-- Draft Copy was scanned into [employer] and attached to record. klr Administered Medications: 05/24 20:46 Drug: Albuterol-Ipratropium 1 neb [ipratropium-albuterol 0.5 mg-3 mg(2.5 mg base)/3 mL dk nebulization soln (1 neb)] Route: Nebulizer; 20:57 Drug: Solu-MEDROL 125 mg [Solu-Medrol 500 mg intravenous solution (125 mg)] Route: IVP; mv5 Site: left antecubital; 20:57 Drug: Acetaminophen 650 mg [acetaminophen 325 mg tablet (2 tabs)] Route: PO; mv5 22:46 Follow up: Response: No Adverse Reaction mv5 21:07 Drug: Albuterol-Ipratropium 1 neb [ipratropium-albuterol 0.5 mg-3 mg(2.5 mg base)/3 mL dk nebulization soln (1 neb)] Route: Nebulizer; 21:17 Drug: Albuterol-Ipratropium 1 neb [ipratropium-albuterol 0.5 mg-3 mg(2.5 mg base)/3 mL dk nebulization soln (1 neb)] Route: Nebulizer; 22:46 Drug: Moxifloxacin 400 mg [moxifloxacin 400 mg tablet (1 tabs)] Route: PO; mv5 23:18 Follow up: Response: No Adverse Reaction mv5 Signatures: Dispatcher [employer] EDMS Beck Rivers, CHALK EXTRUDING MACHINE OPERATOR CHALK EXTRUDING MACHINE OPERATOR Cristine Akers Kristopher, ULTRASOUND SUPERVISOR ULTRASOUND SUPERVISOR kb5 Dafne Noriegar Shahla Solomon,RN RN tm5 Ysabel Tracey RN RN mv5 Krysten Coello The chart was reviewed and I authenticate all verbal orders and agree with the evaluation and treatment provided.Attachments: 22:02 [facility] Payment Agreement zo 05/25 19:30 T-Sheet-- Draft Copy klr Chart Complete MTDD
--- NOTE | 2016-05-27 21:45 | EDDOCDS ---
Physician Documentation [facility] Name: Jose Puentes Age: 55 yrs Sex: Female : 1960 Arrival Date: 05/24/2016 Time: 20:24 Bed 14 Private MD: Sherron Valerio Disposition: 05/24/16 23:10 Discharged to Home/Self Care. Impression: Emphysema, Other forms of dyspnea. - Condition is Stable. - Discharge Instructions: Shortness of Breath. - Prescriptions for Moxifloxacin 400 mg Oral Tablet - take 1 tablet by ORAL route once daily; 5 tablet. Prednisone 10 mg Oral Tablet - take 1 tablet by ORAL route as directed Day1-3:6 po,day4-5:5 po,day6-7: 4 po,day8-9:3 po,qch04-28:2 po,day 12-14:1 po; 49 tablet. - Medication Reconciliation, Local Pharmacy Hours form. - Follow up: Sherron Valerio; When: 4 - 5 days; Reason: Recheck today's complaints, Continuance of care. - Problem is an acute exacerbation. - Symptoms have improved. Historical: - Allergies: no known allergies; - Home Meds: 1. atenolol 25 mg Oral tab 1 tab once daily 2. BuSpar Oral 10 mg daily 3. levothyroxine 112 mcg oral tab 4. omeprazole 40 mg Oral cpDR 1 cap once daily - PMHx: Depression; Emphysema; graves disease; - PSHx: Hysterectomy; Cholecystectomy; Appendectomy; - Social history: Smoking status: Patient uses tobacco products, current every day smoker. No barriers to communication noted, The patient speaks fluent Macedonian. - Family history: Pertinent for recent exposure to family members with viral URI.. - : The pt / caregiver states he / she is not on anticoagulants. Home medication list is obtained from the patient. - Exposure Risk Screening:: None identified. 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 4 in. (162.56 cm) (R); Pain 0/10; 21:29 BP 119 / 63 (auto/); mv5 21:29 Pulse 144 MON; Pulse Ox 93% ; mv5 21:44 BP 126 / 72 (auto/); mv5 21:45 Pulse 128 MON; Pulse Ox 92% ; mv5 21:59 BP 128 / 71 (auto/); mv5 22:00 Pulse 126 MON; Pulse Ox 90% ; mv5 22:14 BP 113 / 70 (auto/); mv5 22:15 Pulse 132 MON; Pulse Ox 88% ; mv5 22:29 BP 101 / 59 (auto/); mv5 22:30 Pulse 140 MON; Pulse Ox 87% ; mv5 22:44 BP 100 / 61 (auto/); mv5 22:44 Pulse 140 MON; Pulse Ox 87% ; mv5 20:26 Body Mass Index 18.54 (48.99 kg, 162.56 cm) gr2 MDM: 20:40 Solu-MEDROL 125 mg IVP once ordered. ke 20:40 -Blood Culture (Adults Only), peripheral from different site, or from device/port/PICC ke etc. if present ordered. 20:40 Sign Painter Helper/Pulse Ox/q 15 min VS ordered. ke 20:40 IV Saline Lock ordered. ke 20:40 Oxygen at 4L/Min NC or Home dosage ordered. ke 20:40 Rhythm Strip to chart ordered. ke 20:40 Albuterol-Ipratropium 1 neb Nebulizer every 20 minutes x3 ordered. ke 20:40 Call Respiratory ordered. ke 20:40 Acetaminophen Tablet 650 mg PO once ordered. ke 20:40 -Blood Culture Ordered. EDMS 20:40 Basic Metabolic Profile Ordered. EDMS 20:40 CBC with Diff Ordered. EDMS 20:40 Chest, 2 View (pa\E\lat) Ordered. EDMS 20:42 Call Respiratory complete. kb5 20:44 -Blood Culture (Adults Only), peripheral from different site, or from device/port/PICC kb5 etc. if present complete. 20:45 BLOOD CULTURES Ordered. EDMS 21:19 Financial registration complete. zo 21:47 Levalbuterol 1.25 mg Nebulizer once ordered. ke 21:48 Basic Metabolic Profile Reviewed. ke 21:48 CBC with Diff Reviewed. ke 22:02 [facility] Payment Agreement was scanned into [employer] and attached to record. zo 22:37 Moxifloxacin 400 mg PO once ordered. ke 05/25 19:30 T-Sheet-- Draft Copy was scanned into [employer] and attached to record. klr Administered Medications: 05/24 20:46 Drug: Albuterol-Ipratropium 1 neb [ipratropium-albuterol 0.5 mg-3 mg(2.5 mg base)/3 mL dk nebulization soln (1 neb)] Route: Nebulizer; 20:57 Drug: Solu-MEDROL 125 mg [Solu-Medrol 500 mg intravenous solution (125 mg)] Route: IVP; mv5 Site: left antecubital; 20:57 Drug: Acetaminophen 650 mg [acetaminophen 325 mg tablet (2 tabs)] Route: PO; mv5 22:46 Follow up: Response: No Adverse Reaction mv5 21:07 Drug: Albuterol-Ipratropium 1 neb [ipratropium-albuterol 0.5 mg-3 mg(2.5 mg base)/3 mL dk nebulization soln (1 neb)] Route: Nebulizer; 21:17 Drug: Albuterol-Ipratropium 1 neb [ipratropium-albuterol 0.5 mg-3 mg(2.5 mg base)/3 mL dk nebulization soln (1 neb)] Route: Nebulizer; 22:46 Drug: Moxifloxacin 400 mg [moxifloxacin 400 mg tablet (1 tabs)] Route: PO; mv5 23:18 Follow up: Response: No Adverse Reaction mv5 Signatures: Dispatcher [employer] EDMS Beck Rviers, WHOLESALE ACCOUNT MANAGER WHOLESALE ACCOUNT MANAGER Cristine Akers Kristopher, FAMILY SPECIALIST FAMILY SPECIALIST kb5 Dafne Noriegar Shahla Solomon,RN RN tm5 Ysabel Tracey RN RN mv5 Krysten Coello The chart was reviewed and I authenticate all verbal orders and agree with the evaluation and treatment provided.Attachments: 22:02 [facility] Payment Agreement zo 05/25 19:30 T-Sheet-- Draft Copy klr Chart Complete MTDD
--- NOTE | 2016-05-27 21:45 | EDDOCDS ---
Physician Documentation [facility] Name: Jose Puentes Age: 55 yrs Sex: Female : 1960 Arrival Date: 05/24/2016 Time: 20:24 Bed 14 Private MD: Sherron Valerio Disposition: 05/24/16 23:10 Discharged to Home/Self Care. Impression: Emphysema, Other forms of dyspnea. - Condition is Stable. - Discharge Instructions: Shortness of Breath. - Prescriptions for Moxifloxacin 400 mg Oral Tablet - take 1 tablet by ORAL route once daily; 5 tablet. Prednisone 10 mg Oral Tablet - take 1 tablet by ORAL route as directed Day1-3:6 po,day4-5:5 po,day6-7: 4 po,day8-9:3 po,jaw52-63:2 po,day 12-14:1 po; 49 tablet. - Medication Reconciliation, Local Pharmacy Hours form. - Follow up: Sherron Valerio; When: 4 - 5 days; Reason: Recheck today's complaints, Continuance of care. - Problem is an acute exacerbation. - Symptoms have improved. Historical: - Allergies: no known allergies; - Home Meds: 1. atenolol 25 mg Oral tab 1 tab once daily 2. BuSpar Oral 10 mg daily 3. levothyroxine 112 mcg oral tab 4. omeprazole 40 mg Oral cpDR 1 cap once daily - PMHx: Depression; Emphysema; graves disease; - PSHx: Hysterectomy; Cholecystectomy; Appendectomy; - Social history: Smoking status: Patient uses tobacco products, current every day smoker. No barriers to communication noted, The patient speaks fluent Kazakh. - Family history: Pertinent for recent exposure to family members with viral URI.. - : The pt / caregiver states he / she is not on anticoagulants. Home medication list is obtained from the patient. - Exposure Risk Screening:: None identified. 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 4 in. (162.56 cm) (R); Pain 0/10; 21:29 BP 119 / 63 (auto/); mv5 21:29 Pulse 144 MON; Pulse Ox 93% ; mv5 21:44 BP 126 / 72 (auto/); mv5 21:45 Pulse 128 MON; Pulse Ox 92% ; mv5 21:59 BP 128 / 71 (auto/); mv5 22:00 Pulse 126 MON; Pulse Ox 90% ; mv5 22:14 BP 113 / 70 (auto/); mv5 22:15 Pulse 132 MON; Pulse Ox 88% ; mv5 22:29 BP 101 / 59 (auto/); mv5 22:30 Pulse 140 MON; Pulse Ox 87% ; mv5 22:44 BP 100 / 61 (auto/); mv5 22:44 Pulse 140 MON; Pulse Ox 87% ; mv5 20:26 Body Mass Index 18.54 (48.99 kg, 162.56 cm) gr2 MDM: 20:40 Solu-MEDROL 125 mg IVP once ordered. ke 20:40 -Blood Culture (Adults Only), peripheral from different site, or from device/port/PICC ke etc. if present ordered. 20:40 Cryogenics Engineer/Pulse Ox/q 15 min VS ordered. ke 20:40 IV Saline Lock ordered. ke 20:40 Oxygen at 4L/Min NC or Home dosage ordered. ke 20:40 Rhythm Strip to chart ordered. ke 20:40 Albuterol-Ipratropium 1 neb Nebulizer every 20 minutes x3 ordered. ke 20:40 Call Respiratory ordered. ke 20:40 Acetaminophen Tablet 650 mg PO once ordered. ke 20:40 -Blood Culture Ordered. EDMS 20:40 Basic Metabolic Profile Ordered. EDMS 20:40 CBC with Diff Ordered. EDMS 20:40 Chest, 2 View (pa\E\lat) Ordered. EDMS 20:42 Call Respiratory complete. kb5 20:44 -Blood Culture (Adults Only), peripheral from different site, or from device/port/PICC kb5 etc. if present complete. 20:45 BLOOD CULTURES Ordered. EDMS 21:19 Financial registration complete. zo 21:47 Levalbuterol 1.25 mg Nebulizer once ordered. ke 21:48 Basic Metabolic Profile Reviewed. ke 21:48 CBC with Diff Reviewed. ke 22:[address] [facility] Payment Agreement was scanned into [employer] and attached to record. zo 22:37 Moxifloxacin 400 mg PO once ordered. ke 05/25 19:30 T-Sheet-- Draft Copy was scanned into [employer] and attached to record. klr Administered Medications: 05/24 20:46 Drug: Albuterol-Ipratropium 1 neb [ipratropium-albuterol 0.5 mg-3 mg(2.5 mg base)/3 mL dk nebulization soln (1 neb)] Route: Nebulizer; 20:57 Drug: Solu-MEDROL 125 mg [Solu-Medrol 500 mg intravenous solution (125 mg)] Route: IVP; mv5 Site: left antecubital; 20:57 Drug: Acetaminophen 650 mg [acetaminophen 325 mg tablet (2 tabs)] Route: PO; mv5 22:46 Follow up: Response: No Adverse Reaction mv5 21:07 Drug: Albuterol-Ipratropium 1 neb [ipratropium-albuterol 0.5 mg-3 mg(2.5 mg base)/3 mL dk nebulization soln (1 neb)] Route: Nebulizer; 21:17 Drug: Albuterol-Ipratropium 1 neb [ipratropium-albuterol 0.5 mg-3 mg(2.5 mg base)/3 mL dk nebulization soln (1 neb)] Route: Nebulizer; 22:46 Drug: Moxifloxacin 400 mg [moxifloxacin 400 mg tablet (1 tabs)] Route: PO; mv5 23:18 Follow up: Response: No Adverse Reaction mv5 Signatures: Dispatcher [employer] EDMS Beck Rivers, PIECE MAKER PIECE MAKER Cristine Akers Kristopher, TURBINE INSPECTOR TURBINE INSPECTOR kb5 Dafne Noriegar Shahla Solomon,RN RN tm5 Ysabel Tracey RN RN mv5 Krysten Coello The chart was reviewed and I authenticate all verbal orders and agree with the evaluation and treatment provided.Attachments: 22:02 [facility] Payment Agreement zo 05/25 19:30 T-Sheet-- Draft Copy klr Chart Complete MTDD
--- NOTE | 2016-05-27 21:46 | EDDOCDS ---
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 Adult Sepsis Screening: The patient does not have new or worsening altered mentation. Patient's respiratory rate is less than 22. Systolic blood pressure is greater than 100. Patient has a qSOFA score of 0- Negative Sepsis Screen. Suicide/Homicide risk assessment- the patient denies having any suicidal and/or homicidal ideations and does not present with any other emotional, behavioral or mental health complaints. Status: Patient is not a career services assistant or dependent. Transition of care: patient was not received from another setting of care. 20:30 Acuity: MELIZA Level 3 tm5 20:30 Method Of Arrival: Walkin/Carried/Asstd tm5 20:32 Red Flag criteria, Vitals stable, pt. appears in no acute distress. Triage and then lf1 direct to room. Charge nurse notified. Triage Assessment: 20:33 General: Appears in no apparent distress, Behavior is appropriate for age, cooperative. tm5 Pain: Denies pain. Pt Declines HIV testing. Neurological: Level of Consciousness is awake, alert, Oriented to person, place, time. Respiratory: Onset: The symptoms/episode began/occurred yesterday, Airway is patent Respiratory effort is even, unlabored, Respiratory pattern is regular, symmetrical. Derm: Skin is pink, warm & dry. 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 atenolol 25 mg Oral tab 1 tab once daily 2. BuSpar Oral 10 mg daily 3. levothyroxine 112 mcg oral tab 4. omeprazole 40 mg Oral cpDR 1 cap once daily - PMHx: Depression; Emphysema; graves disease; - PSHx: Hysterectomy; Cholecystectomy; Appendectomy; - Social history: Smoking status: Patient uses tobacco products, current every day smoker. No barriers to communication noted, The patient speaks fluent Emirati. - Family history: Pertinent for recent exposure to family members with viral URI.. - : The pt / caregiver states he / she is not on anticoagulants. Home medication list is obtained from the patient. - Exposure Risk Screening:: None identified. Screenin:33 Screening information is obtained from the patient. Fall risk: No risks identified. tm5 Assistance ADL's: requires no assistance with activities of daily living. Abuse/DV Screen: The patient / caregiver reports he/she is: not in a situation that causes fear, pain or injury. Nutritional screening: No deficits noted. Advance Directives: Currently, there is no health care proxy. There is no active DNR order. home support is adequate. Assessment: 21:14 General: Appears slender, uncomfortable, well nourished. Pain: Denies pain. mv5 Neurological: Level of Consciousness is awake, alert, Oriented to person, place, time. Cardiovascular: Capillary refill is > 3 seconds Heart tones S1 S2 present Rhythm is sinus tachycardia No ectopy. Cardiovascular: Chest pain is denied. Respiratory: Airway is patent Respiratory effort is even, labored, Respiratory pattern is regular, symmetrical, Breath sounds are diminished bilaterally. in left posterior lower lobe and right posterior lower lobe. GI: No deficits noted. : No deficits noted. Derm: Skin is pink, warm & dry. 21:49 General: Appears in no apparent distress, Pt notes mild improvement of symptoms mv5 following nebulizers.. Neurological: No deficits noted. Cardiovascular: Rhythm is sinus tachycardia No ectopy. Respiratory: Airway is patent Respiratory effort is even, unlabored, Respiratory pattern is regular, symmetrical. Derm: Skin is pink, warm & dry. 22:47 General: Appears in no apparent distress, comfortable, Behavior is cooperative, mv5 pleasant. Pain: Denies pain. Neurological: No deficits noted. Cardiovascular: Rhythm is sinus tachycardia No ectopy. Chest pain is denied. Respiratory: Airway is patent Respiratory effort is even, unlabored, Respiratory pattern is regular, symmetrical, Pt reports significant improvement of respiratory symptoms. Derm: Skin is pink, warm & dry. 23:04 General: Appears in no apparent distress, Pt ambulated in hallway with sP02 monitoring, mv5 89-91% on room air without increased work of breathing or c/o shortness of breath. Provider aware.. Pain: Denies pain. Respiratory: Airway is patent Respiratory effort is even, unlabored, Respiratory pattern is regular, symmetrical. Derm: Skin is pink, warm & dry. Vital Signs: 20:26 BP 168 / 99; Pulse 105; Resp 20 S; Temp 100.5(O); Pulse Ox 95% on R/A; Weight 48.99 kg gr2 (R); Height 5 ft. 4 in. (162.56 cm) (R); Pain 0/10; 21:29 BP 119 / 63 (auto/); mv5 21:29 Pulse 144 MON; Pulse Ox 93% ; mv5 21:44 BP 126 / 72 (auto/); mv5 21:45 Pulse 128 MON; Pulse Ox 92% ; mv5 21:59 BP 128 / 71 (auto/); mv5 22:00 Pulse 126 MON; Pulse Ox 90% ; mv5 22:14 BP 113 / 70 (auto/); mv5 22:15 Pulse 132 MON; Pulse Ox 88% ; mv5 22:29 BP 101 / 59 (auto/); mv5 22:30 Pulse 140 MON; Pulse Ox 87% ; mv5 22:44 BP 100 / 61 (auto/); mv5 22:44 Pulse 140 MON; Pulse Ox 87% ; mv5 20:26 Body Mass Index 18.54 (48.99 kg, 162.56 cm) gr2 Vitals: 20:26 Log In Time: May 24, 2016 at 20:26. RN notified that patient meets Red Flag gr2 criteria. ED Course: 20:26 Patient visited by Cristina Gooden. gr2 20:26 Sherron Valerio is Private Physician. gr2 20:26 Patient moved to Waiting gr2 20:28 Patient visited by Cristina Gooden. gr2 20:30 Patient moved to Pre RCE gr2 20:31 Triage Initiated tm5 20:34 Ysabel Tracey,RN is Primary Nurse. tm5 20:34 Patient moved to 14 tm5 20:36 Beck Rivers FNP is [facility]. ke 20:36 Patient visited by Beck Rivers FNP. ke 20:36 Patient visited by Beck Rivers FNP. ke 20:57 -Blood Culture Sent. mv5 20:57 Basic Metabolic Profile Sent. mv5 20:57 CBC with Diff Sent. mv5 21:13 BLOOD CULTURES Sent. mv5 21:14 The patient / caregiver is instructed regarding the plan of care and ED course. mv5 21:14 Inserted saline lock: 18 gauge in left antecubital area and blood collected. The mv5 patient tolerated the procedure well. 21:25 Patient visited by Beck Rivers FNP. ke 21:46 Patient visited by Beck Rivers FNP. ke 22:02 [facility] Payment Agreement was scanned into [employer] and attached to record. zo 22:18 Patient visited by Ciaran Albarado PCA. jmv 22:40 Patient visited by Beck Rivers FNP. ke 23:01 Patient visited by Beck Rivers FNP. ke 23:09 Sherron Valerio is Referral Physician. ke 23:16 Discontinued intact, bleeding controlled, pressure dressing applied, No mv5 redness/swelling at site. No procedures done that require assistance. 05/25 08:33 Chest, 2 View (pa\E\lat) Returned. EDMS 19:30 T-Sheet-- Draft Copy was scanned into [employer] and attached to record. klr Administered Medications: 05/24 20:46 Drug: Albuterol-Ipratropium 1 neb [ipratropium-albuterol 0.5 mg-3 mg(2.5 mg base)/3 mL dk nebulization soln (1 neb)] Route: Nebulizer; 20:57 Drug: Solu-MEDROL 125 mg [Solu-Medrol 500 mg intravenous solution (125 mg)] Route: IVP; mv5 Site: left antecubital; 20:57 Drug: Acetaminophen 650 mg [acetaminophen 325 mg tablet (2 tabs)] Route: PO; mv5 22:46 Follow up: Response: No Adverse Reaction mv5 21:07 Drug: Albuterol-Ipratropium 1 neb [ipratropium-albuterol 0.5 mg-3 mg(2.5 mg base)/3 mL dk nebulization soln (1 neb)] Route: Nebulizer; 21:17 Drug: Albuterol-Ipratropium 1 neb [ipratropium-albuterol 0.5 mg-3 mg(2.5 mg base)/3 mL dk nebulization soln (1 neb)] Route: Nebulizer; 22:46 Drug: Moxifloxacin 400 mg [moxifloxacin 400 mg tablet (1 tabs)] Route: PO; mv5 23:18 Follow up: Response: No Adverse Reaction mv5 RT: 20:46 Initial Med Neb Given as ordered Patient was instructed and evaluated on procedure dk Patient tolerated procedure well without adverse effect. Oxygen is room air. Respiratory: Breath sounds are diminished bilaterally. 21:07 Subsequent Med Neb Given as ordered Patient tolerated procedure well without adverse dk effect. Oxygen is room air. Respiratory: Breath sounds are coarse Breath sounds are diminished. 21:17 Subsequent Med Neb Given as ordered Patient tolerated procedure well without adverse dk effect. Oxygen is room air. Respiratory: Breath sounds are coarse Breath sounds are diminished. Order Results: Lab Order: -Blood Culture; SPEC'M 05/24/16 20:45 Test: BLOOD CULTURE; Value: No growth after 48 hours . All specimens observed; Status: F Test: BLOOD CULTURE; Value: for 5 days. Results final at that time.; Status: F Test: BLOOD CULTURE; Status: F Test: BLOOD CULTURE; Value: No growth after 24 hours . All specimens observed; Status: F Test: BLOOD CULTURE; Value: for 5 days. Results final at that time.; Status: F Test: BLOOD CULTURE; Value: No Growth after 72 hours. All specimens observed; Status: F Test: BLOOD CULTURE; Value: for 7 days. Results final at that time.; Status: F Lab Order: Basic Metabolic Profile; SPEC'M 05/24/16 20:45 Test: GLUCOSE, FASTING; Value: 94; Range: 70-105; Units: MG/DL; Status: F Test: BLOOD UREA NITROGEN; Value: 5; Range: 7-18; Abnormal: Below low normal; Units: MG/DL; Status: F Test: CREATININE FOR GFR; Value: 0.66; Range: 0.55-1.02; Units: MG/DL; Status: F Test: GLOMERULAR FILTRATION RATE; Value: > 60.0; Range: >51; Status: F Test: SODIUM LEVEL; Value: 139; Range: 136-145; Units: MEQ/L; Status: F Test: POTASSIUM SERUM; Value: 3.9; Range: 3.5-5.1; Units: MEQ/L; Status: F Test: CHLORIDE LEVEL; Value: 103; Range: 98-107; Units: MEQ/L; Status: F Test: CARBON DIOXIDE LEVEL; Value: 30; Range: 21-32; Units: MEQ/L; Status: F Test: ANION GAP; Value: 6; Range: 8-16; Abnormal: Below low normal; Units: MEQ/L; Status: F Test: CALCIUM LEVEL; Value: 8.9; Range: 8.5-10.1; Units: MG/DL; Status: F Test Note: ; Units are mL/min/1.73 m2 Chronic Kidney Disease Staging per NKF: Stage I & II GFR >=60 Normal to Mildly Decreased Stage III GFR 30-59 Moderately Decreased Stage IV GFR 15-29 Severely Decreased Stage V GFR <15 Very Little GFR Left ESRD GFR <15 on TEAR DOWN MAN Lab Order: CBC with Diff; SPEC'M 05/24/16 20:45 Test: WHITE BLOOD COUNT; Value: 8.0; Range: 4.0-10.0; Units: K/mm3; Status: F Test: RED BLOOD COUNT; Value: 5.12; Range: 4.00-5.40; Units: M/mm3; Status: F Test: HEMOGLOBIN; Value: 16.4; Range: 12.0-16.0; Abnormal: Above high normal; Units: g/dl; Status: F Test: HEMATOCRIT; Value: 50.5; Range: 36.0-47.0; Abnormal: Above high normal; Units: %; Status: F Test: MEAN CORPUSCULAR VOLUME; Value: 98.6; Range: 80.0-96.0; Abnormal: Above high normal; Units: fl; Status: F Test: MEAN CORPUSCULAR HEMOGLOBIN; Value: 32.0; Range: 27.0-33.0; Units: pg; Status: F Test: MEAN CORPUSCULAR HGB CONC; Value: 32.4; Range: 32.0-36.5; Units: g/dl; Status: F Test: RED CELL DISTRIBUTION WIDTH; Value: 12.0; Range: 11.5-14.5; Units: %; Status: F Test: PLATELET COUNT, AUTOMATED; Value: 259; Range: 150-450; Units: k/mm3; Status: F Test: NEUTROPHILS %; Value: 79.8; Range: 36.0-66.0; Abnormal: Above high normal; Units: %; Status: F Test: LYMPH %; Value: 9.9; Range: 24.0-44.0; Abnormal: Below low normal; Units: %; Status: F Test: MONO %; Value: 7.1; Range: 0.0-5.0; Abnormal: Above high normal; Units: %; Status: F Test: EOS %; Value: 1.1; Range: 0.0-3.0; Units: %; Status: F Test: BASO %; Value: 1.0; Range: 0.0-1.0; Units: %; Status: F Test: LARGE UNSTAINED CELL %; Value: 1.1; Range: 0.0-4.0; Units: %; Status: F Test: NEUTROPHILS #; Value: 6.4; Range: 1.8-7.7; Units: K/mm3; Status: F Test: LYMPH #; Value: 0.9; Range: 1.5-4.5; Abnormal: Below low normal; Units: K/mm3; Status: F Test: MONO #; Value: 0.6; Range: 0.0-0.8; Units: K/mm3; Status: F Test: EOS #; Value: 0.1; Range: 0.0-0.50; Units: K/mm3; Status: F Test: BASO #; Value: 0.1; Range: 0.0-0.2; Units: K/mm3; Status: F Test: LARGE UNSTAINED CELL #; Value: 0.1; Range: 0.0-0.4; Units: K/mm3; Status: F Lab Order: BLOOD CULTURES; SPEC'M 05/24/16 21:05 Test: BLOOD CULTURE; Value: No growth after 48 hours . All specimens observed; Status: F Test: BLOOD CULTURE; Value: for 5 days. Results final at that time.; Status: F Test: BLOOD CULTURE; Status: F Test: BLOOD CULTURE; Value: No growth after 24 hours . All specimens observed; Status: F Test: BLOOD CULTURE; Value: for 5 days. Results final at that time.; Status: F Test: BLOOD CULTURE; Value: No Growth after 72 hours. All specimens observed; Status: F Test: BLOOD CULTURE; Value: for 7 days. Results final at that time.; Status: F Radiology Order: Chest, 2 View (pa\E\lat) Test: Chest, 2 View (pa\E\lat) REASON FOR EXAMINATION: Shortness of Breath; ; TWO VIEWS OF THE CHEST:; ; The present study is compared to that of 03/27/2016.; ; The heart, great vessels, and remaining mediastinum are normal. The lung volumes; show significant increase with flattening of the hemidiaphragms. There is no; consolidation or opacities of the lungs. Degenerative spurs are noted in the; spine.; ; IMPRESSION:; The findings are consistent with obstructive airway disease. No evidence for; pneumonia on this study.; ; ; ; Unreviewed; Outcome: 23:10 Discharge ordered by Provider. amy 23:16 Discharge Assessment: Patient awake, alert and oriented x 3. No cognitive and/or mv5 functional deficits noted. Patient verbalized understanding of disposition instructions. patient administered narcotics - no. The following High Risk Discharge criteria are identified: None. Discharged to home with family. Condition: stable. Discharge instructions given to patient, Demonstrated understanding of Pt was receptive of discharge instructions/ teaching. Prescriptions given X 2. No special radiology studies were completed. Property sent home with patient. 23:18 Patient left the ED. mv5 Signatures: Dispatcher [employer] EDMS Beck Rivers, WEIGHT GUESSER WEIGHT GUESSER Krysten Francis,RT RT Cristine Vasquez Lisa,RN RN lf1 Cristina Gooden gr2 Dafne Noriega Jose, THEATRE PROFESSOR THEATRE PROFESSOR Shahla Franks,RN RN tm5 Ysabel TraceyRN RN mv5 Chart Complete MTDD
== END 2016-05-24 23:18 | disposition home or self-care (01) ==
LOC: M ED 20:24
DX: J44.0 Chronic obstructive pulmonary disease with (acute) lower respiratory infection (principal); F32.9 Major depressive disorder, single episode, unspecified; E05.00 Thyrotoxicosis with diffuse goiter without thyrotoxic crisis or storm; F17.210 Nicotine dependence, cigarettes, uncomplicated; Z79.899 Other long term (current) drug therapy
CPT/HCPCS: 36415; 71020; 80048; 85025; 87040; 93041; 94640; 96374; 99284; J2930

== ENCOUNTER 2016-05-28 19:28 | Inpatient (IN) | payer BC ==
[~2016-05-28] VITALS: Ht 162.6 cm; Wt 47.7 kg
[2016-05-28] MEDS ORDERED: methylPREDNISolone INJ 125 MG/2 ML VIAL (J2930) As Ordered ONE (20:18)
[2016-05-28] MEDS ORDERED: IPRATROPIUM 0.5MG/ALBUTEROL 2.5MG INH SOL UD 3ML (DUONEB)(J7620) As Ordered ONE (20:20)
[2016-05-28] MEDS ORDERED: ALBUTEROL SULFATE 2.5 MG/0.5 ML INH NEB SOLN As Ordered ONE ×2 (20:20→21:47)
[2016-05-28 20:48] LABS: BASO % 0.1 % (0.0-1.0); EOS % 0.9 % (0.0-3.0); LARGE UNSTAINED CELL # 0.1 K/mm3 (0.0-0.4); LARGE UNSTAINED CELL % 0.8 % (0.0-4.0); LYMPH # 0.9 K/mm3 (1.5-4.5); LYMPH % 13.9 % (24.0-44.0); MEAN CORPUSCULAR HEMOGLOBIN 31.3 pg (27.0-33.0); MEAN CORPUSCULAR HGB CONC 32.8 g/dl (32.0-36.5); MEAN CORPUSCULAR VOLUME 95.5 fl (80.0-96.0); MONO # 0.1 K/mm3 (0.0-0.8); NEUTROPHILS % 82.3 % (36.0-66.0); PLATELET COUNT, AUTOMATED 308 k/mm3 (150-450); RED CELL DISTRIBUTION WIDTH 11.9 % (11.5-14.5)
[2016-05-28 21:15] LABS: ANION GAP 10 MEQ/L (8-16); BLOOD UREA NITROGEN 11 MG/DL (7-18); CARBON DIOXIDE LEVEL 29 MEQ/L (21-32); CHLORIDE LEVEL 103 MEQ/L (98-107); CREATININE FOR GFR 0.82 MG/DL (0.55-1.02); GLOMERULAR FILTRATION RATE > 60.0 (>51); GLUCOSE, FASTING 124 MG/DL (70-105); POTASSIUM SERUM 4.2 MEQ/L (3.5-5.1); SODIUM LEVEL 142 MEQ/L (136-145)
[2016-05-28] MEDS ORDERED: BENZONATATE 100 MG CAP As Ordered ONE (21:32)
[2016-05-28] MEDS ORDERED: cefTRIAXone SOD 1 GM in D5W MINI-BAG PLUS 50 ML IV SCH (22:00)
[2016-05-28] MEDS ORDERED: LEVALBUTEROL 1.25 MG/0.5 ML CONCENTRATE NEB NEB PRN (22:30)
[2016-05-28] MEDS ORDERED: NICOTINE POLACRILEX 2 MG GUM PO PRN (23:00)
[2016-05-28] MEDS ORDERED: BUSP10TA PO (23:01)
[2016-05-28] MEDS ORDERED: MOXI1TAB PO (23:01)
[2016-05-28] MEDS ORDERED: SYNT112T2 PO (23:01)
[2016-05-28] MEDS ORDERED: ATEN25TA PO (23:01)
[2016-05-28] MEDS ORDERED: TYLE500T78 PO (23:01)
[2016-05-28] MEDS ORDERED: OMEP40CA2 PO (23:01)
[2016-05-28] MEDS ORDERED: PRED10PA2 PO (23:01)
[2016-05-28] MEDS ORDERED: ALBU17IN INH (23:01)
--- NOTE | 2016-05-28 23:23 | EDDOCDS ---
Nurse's Notes [facility] Name: Jose Puentes Age: 55 yrs Sex: Female : 1960 Arrival Date: 05/28/2016 Time: 19:28 Bed I4 / M4 Private MD: Diagnosis: Chronic obstructive pulmonary disease with (acute) exacerbation;Acute bronchitis Presentation: 05/28 19:33 Presenting complaint: Patient states: pt was seen here Sunday for SOB. Treated and ttb is not improving. Unable to move short distances without increased SOB. Cough. Adult Sepsis Screening: The patient does not have new or worsening altered mentation. Patient's respiratory rate is less than 22. Systolic blood pressure is greater than 100. Patient has a qSOFA score of 0- Negative Sepsis Screen. Suicide/Homicide risk assessment- the patient denies having any suicidal and/or homicidal ideations and does not present with any other emotional, behavioral or mental health complaints. Status: Patient is not a creative services specialist or dependent. Transition of care: patient was not received from another setting of care. 19:33 Acuity: MELIZA Level 3 ttb 19:33 Method Of Arrival: Walkin/Carried/Asstd ttb Triage Assessment: 19:38 General: Appears uncomfortable, well nourished, well groomed, Behavior is anxious, ttb appropriate for age, cooperative, pleasant, restless. Pain: Denies pain. HIV screening NA for this visit Offered previously. Neurological: Level of Consciousness is awake, alert. Cardiovascular: Chest pain is denied. Respiratory: Airway is patent Respiratory effort is even, unlabored, Respiratory pattern is regular, tachypnea Reports shortness of breath at rest on exertion cough that is non-productive, labored breathing the patient has moderate shortness of breath. Derm: Skin is normal. 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 levothyroxine 112 mcg Oral tab 1 tab once daily (Last dose: 05/25/2016 08:00) 2. omeprazole 40 mg Oral cpDR 1 cap once daily (Last dose: 05/27/2016 20:00) 3. BuSpar Oral 10 mg daily (Last dose: 05/28/2016 08:00) 4. atenolol 25 mg Oral tab 1 tab once daily (Last dose: 05/28/2016 08:00) 5. prednisone 10 mg oral tab once daily (Last dose: 05/28/2016 13:00) 6. avalox 400mg daily (Last dose: 05/28/2016 12:45) 7. Tylenol 325 mg Oral tab 1000 mg every 6 hours (Last dose: 05/27/2016 22:00) - PMHx: graves disease; Emphysema; Anxiety; colon polyps; - PSHx: Hysterectomy; Cholecystectomy; Appendectomy; colectomy; - Social history: Smoking status: Patient uses tobacco products, current every day smoker. Patient/guardian denies using alcohol, street drugs, No barriers to communication noted, The patient speaks fluent Namibian, Speaks appropriately for age. - Family history: Not pertinent. - : The pt / caregiver states he / she is not on anticoagulants. Home medication list is obtained from the patient. - Exposure Risk Screening:: None identified. Screenin:43 Screening information is obtained from the patient. Fall risk: No risks identified. rs3 Assistance ADL's: requires no assistance with activities of daily living. Abuse/DV Screen: The patient / caregiver reports he/she is: not in a situation that causes fear, pain or injury. Nutritional screening: No deficits noted. Advance Directives: Currently, there is no health care proxy. home support is adequate. Assessment: 20:42 General: Appears in no apparent distress, Behavior is appropriate for age, cooperative. rs3 Pain: Denies pain. Cardiovascular: Capillary refill < 3 seconds Clubbing of nail beds is absent Chest pain is denied. Respiratory: Airway is patent Respiratory effort is even, unlabored, Respiratory pattern is regular, symmetrical, Breath sounds with wheezes bilaterally. Derm: Skin is pink, warm & dry. 21:58 General: Appears in no apparent distress, Behavior is cooperative, denies of rs3 pain/distress. respiratory therapist with patient, getting neb treatment. breathes easy. 23:19 General: Appears in no apparent distress, comfortable, Behavior is appropriate for age, kc3 cooperative. Pain: Denies pain. Respiratory: Airway is patent Respiratory effort is even, unlabored, Reports shortness of breath at rest. Derm: Skin is pink, warm & dry. Vital Signs: 19:30 BP 131 / 104; Pulse 126; Resp 20; Temp 96.7(O); Pulse Ox 95% on R/A; Weight 49.9 kg lr2 (R); Height 5 ft. 4 in. (162.56 cm) (R); Pain 0/10; 21:59 Pulse 108; Resp 20; Pulse Ox 91% on R/A; rs3 22:11 Pulse 109; Pulse Ox 88% on R/A; mf4 23:16 BP 130 / 82; Pulse 120; Resp 20; Temp 97.8(O); Pulse Ox 89% on R/A; Pain 0/10; kc3 19:30 Body Mass Index 18.88 (49.90 kg, 162.56 cm) lr2 Vitals: 19:30 Log In Time: May 28, 2016 at 19:28. lr2 ED Course: 19:30 Patient visited by Virgen Beyer. lr2 19:30 Patient moved to Waiting lr2 19:34 Triage Initiated ttb 19:59 Patient moved to Pre RCE ms18 20:01 Patient moved to Triage 1 ar3 20:02 Otto Hartman PA is PHCP. mo1 20:02 Tree Bailey DO is Attending Physician. mo1 20:09 Patient visited by Otto Hartman PA. mo1 20:15 Patient moved to I4 / M4 ms18 20:34 -Influenza A&B Rapid Antigen - Nose Sent. mf4 20:34 BMP Sent. mf4 20:34 CBC with Diff Sent. mf4 20:35 The patient / caregiver is instructed regarding the plan of care and ED course. mf4 20:35 Inserted saline lock: 20 gauge in left antecubital area and blood collected. The mf4 patient tolerated the procedure well. 20:42 Patient visited by Maricruz Odonnell RN. rs3 21:58 Patient visited by Maricruz Odonnell RN. rs3 22:09 [facility] [place] Payment Agreement was scanned into [employer] and attached to record. zo 22:17 Jessica Adrian is Hospitalizing Provider. mo1 23:19 No procedures done that require assistance. kc3 Administered Medications: 20:23 Drug: Albuterol-Ipratropium 3 ml [ipratropium-albuterol 0.5 mg-3 mg(2.5 mg base)/3 mL 3 nebulization soln (3 mL)] Route: Inhalation; 20:23 Drug: Albuterol 5 mg [albuterol sulfate 2.5 mg/0.5 mL solution for nebulization (1 mL)] jc3 Route: Nebulizer; 20:43 Drug: Solu-MEDROL 125 mg [Solu-Medrol 500 mg intravenous solution (125 mg)] Route: IVP; rs3 Site: left antecubital; 21:34 Drug: Tessalon 200 mg Route: PO; mf4 21:51 Drug: Albuterol 2.5 mg [albuterol sulfate 2.5 mg/0.5 mL solution for nebulization (0.5 jc3 mL)] Route: Nebulizer; RT: 20:24 Initial Med Neb Given as ordered. Respiratory: Breath sounds are diminished jc3 bilaterally. Breath sounds with wheezes bilaterally. at expiration. 21:51 Subsequent Med Neb Given as ordered. Respiratory: Breath sounds are diminished Breath jc3 sounds with wheezes bilaterally. at expiration. Order Results: Lab Order: CBC with Diff; SPEC'M 05/28/16 20:32 Test: WHITE BLOOD COUNT; Value: 6.0; Range: 4.0-10.0; Units: K/mm3; Status: F Test: RED BLOOD COUNT; Value: 5.52; Range: 4.00-5.40; Abnormal: Above high normal; Units: M/mm3; Status: F Test: HEMOGLOBIN; Value: 17.3; Range: 12.0-16.0; Abnormal: Above high normal; Units: g/dl; Status: F Test: HEMATOCRIT; Value: 52.8; Range: 36.0-47.0; Abnormal: Above high normal; Units: %; Status: F Test: MEAN CORPUSCULAR VOLUME; Value: 95.5; Range: 80.0-96.0; Units: fl; Status: F Test: MEAN CORPUSCULAR HEMOGLOBIN; Value: 31.3; Range: 27.0-33.0; Units: pg; Status: F Test: MEAN CORPUSCULAR HGB CONC; Value: 32.8; Range: 32.0-36.5; Units: g/dl; Status: F Test: RED CELL DISTRIBUTION WIDTH; Value: 11.9; Range: 11.5-14.5; Units: %; Status: F Test: PLATELET COUNT, AUTOMATED; Value: 308; Range: 150-450; Units: k/mm3; Status: F Test: NEUTROPHILS %; Value: 82.3; Range: 36.0-66.0; Abnormal: Above high normal; Units: %; Status: F Test: LYMPH %; Value: 13.9; Range: 24.0-44.0; Abnormal: Below low normal; Units: %; Status: F Test: MONO %; Value: 2.0; Range: 0.0-5.0; Units: %; Status: F Test: EOS %; Value: 0.9; Range: 0.0-3.0; Units: %; Status: F Test: BASO %; Value: 0.1; Range: 0.0-1.0; Units: %; Status: F Test: LARGE UNSTAINED CELL %; Value: 0.8; Range: 0.0-4.0; Units: %; Status: F Test: NEUTROPHILS #; Value: 5.0; Range: 1.8-7.7; Units: K/mm3; Status: F Test: LYMPH #; Value: 0.9; Range: 1.5-4.5; Abnormal: Below low normal; Units: K/mm3; Status: F Test: MONO #; Value: 0.1; Range: 0.0-0.8; Units: K/mm3; Status: F Test: EOS #; Value: 0.0; Range: 0.0-0.50; Units: K/mm3; Status: F Test: BASO #; Value: 0.0; Range: 0.0-0.2; Units: K/mm3; Status: F Test: LARGE UNSTAINED CELL #; Value: 0.1; Range: 0.0-0.4; Units: K/mm3; Status: F Lab Order: [facility]; SPEC'M 05/28/16 20:32 Test: GLUCOSE, FASTING; Value: 124; Range: 70-105; Abnormal: Above high normal; Units: MG/DL; Status: F Test: BLOOD UREA NITROGEN; Value: 11; Range: 7-18; Units: MG/DL; Status: F Test: CREATININE FOR GFR; Value: 0.82; Range: 0.55-1.02; Units: MG/DL; Status: F Test: GLOMERULAR FILTRATION RATE; Value: > 60.0; Range: >51; Status: F Test: SODIUM LEVEL; Value: 142; Range: 136-145; Units: MEQ/L; Status: F Test: POTASSIUM SERUM; Value: 4.2; Range: 3.5-5.1; Units: MEQ/L; Status: F Test: CHLORIDE LEVEL; Value: 103; Range: 98-107; Units: MEQ/L; Status: F Test: CARBON DIOXIDE LEVEL; Value: 29; Range: 21-32; Units: MEQ/L; Status: F Test: ANION GAP; Value: 10; Range: 8-16; Units: MEQ/L; Status: F Test: CALCIUM LEVEL; Value: 9.0; Range: 8.5-10.1; Units: MG/DL; Status: F Test Note: ; Units are mL/min/1.73 m2 Chronic Kidney Disease Staging per NKF: Stage I & II GFR >=60 Normal to Mildly Decreased Stage III GFR 30-59 Moderately Decreased Stage IV GFR 15-29 Severely Decreased Stage V GFR <15 Very Little GFR Left ESRD GFR <15 on DIRECTOR OF BUSINESS CONTINUITY Lab Order: -Influenza A&B Rapid Antigen - Nose; SPEC'M 05/28/16 20:32 Test: INFLUENZA A RAPID SCR by ICA; Value: INFLUENZA A RESULTS NEGATIVE; Status: F Test: INFLUENZA A RAPID SCR by ICA; Value: Comments:; Status: F Test: INFLUENZA B RAPID SCR by ICA; Value: INFLUENZA B RESULTS NEGATIVE; Status: F Test Note: ; The Influenza test is a direct rapid immunoassay for the qualitative detection of Influenza viral antigen. Cell culture (Viral Culture) testing should be considered to confirm NEGATIVE results and to assist in detecting other viruses that can provide similar clinical symptoms. Please contact the lab within 24 hours ([phone]) if confirmatory testing is desired. Lab Order: CARDIAC MARKER PANEL; SPEC'M 05/28/16 20:32 Test: CPK CREATINE PHOSPHOKINASE; Value: 58; Range: 26-192; Units: U/L; Status: F Test: CK-MB VALUE MASS; Value: 1.0; Range: 0.0-3.6; Units: NG/ML; Status: F Test: MB/CK RELATIVE INDEX; Value: 1.72; Range: < OR =4; Status: F Test: TROPONIN I; Value: < 0.02; Range: < 0.10; Units: NG/ML; Status: F Test Note: ; DIAGNOSIS CRITERIA MMB ng/ml Relative Index (RI) NON-AMI < or = 5 N/A [place] > 5 < or = 4 AMI > 5 > 4 Outcome: 22:17 Decision to Hospitalize by Provider. mo1 23:17 Discharge Assessment: patient administered narcotics - no. Admitted to [facility] accompanied by tech, via wheelchair, with chart. The following High Risk Discharge criteria are identified: None. Condition: stable. CT Study completed. Admission hand-off: Report called to STEPHANIE Raymond. Property :Personal belongings accompany Pt. 23:23 Patient left the ED. [facility] Signatures: Cristine Lazo Joseph jc3 Maricruz Odonnell,RN RN rs3 Letty Linn, CABIN EQUIPMENT SUPERVISOR CABIN EQUIPMENT SUPERVISOR ar3 Nate Jewell,HAT BRIM CURLER HAT BRIM CURLER mf4 Juana Briggs, RN RN ttb Otto Hartman PA PA mo1 Lindsay Chi,RN RN ms18 Sandra Villela,STEPHANIE RN kc3 Virgen Beyer2 MTDD
--- NOTE | 2016-05-28 23:23 | EDDOCDS ---
Physician Documentation [facility] Name: Jose Puentes Age: 55 yrs Sex: Female : 1960 Arrival Date: 05/28/2016 Time: 19:28 Bed I4 / M4 Private MD: Disposition: 05/28/16 22:17 Hospitalization ordered by Jessica Adrian for Inpatient Admission. Preliminary diagnosis are Chronic obstructive pulmonary disease with (acute) exacerbation, Acute bronchitis. - Bed requested for M PED. - Status is Inpatient Admission. kc3 - Condition is Stable. - Problem is an acute exacerbation. - Symptoms are unchanged. Historical: - Allergies: no known allergies; - Home Meds: 1. levothyroxine 112 mcg Oral tab 1 tab once daily (Last dose: 05/25/2016 08:00) 2. omeprazole 40 mg Oral cpDR 1 cap once daily (Last dose: 05/27/2016 20:00) 3. BuSpar Oral 10 mg daily (Last dose: 05/28/2016 08:00) 4. atenolol 25 mg Oral tab 1 tab once daily (Last dose: 05/28/2016 08:00) 5. prednisone 10 mg oral tab once daily (Last dose: 05/28/2016 13:00) 6. avalox 400mg daily (Last dose: 05/28/2016 12:45) 7. Tylenol 325 mg Oral tab 1000 mg every 6 hours (Last dose: 05/27/2016 22:00) - PMHx: graves disease; Emphysema; Anxiety; colon polyps; - PSHx: Hysterectomy; Cholecystectomy; Appendectomy; colectomy; - Social history: Smoking status: Patient uses tobacco products, current every day smoker. Patient/guardian denies using alcohol, street drugs, No barriers to communication noted, The patient speaks fluent Hungarian, Speaks appropriately for age. - Family history: Not pertinent. - : The pt / caregiver states he / she is not on anticoagulants. Home medication list is obtained from the patient. - Exposure Risk Screening:: None identified. 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 4 in. (162.56 cm) (R); Pain 0/10; 21:59 Pulse 108; Resp 20; Pulse Ox 91% on R/A; rs3 22:11 Pulse 109; Pulse Ox 88% on R/A; mf4 23:16 BP 130 / 82; Pulse 120; Resp 20; Temp 97.8(O); Pulse Ox 89% on R/A; Pain 0/10; kc3 19:30 Body Mass Index 18.88 (49.90 kg, 162.56 cm) lr2 MDM: 20:13 IV Saline Lock ordered. mo1 20:13 Solu-MEDROL 125 mg IVP once ordered. mo1 20:13 Albuterol-Ipratropium 3 ml Inhalation once ordered. mo1 20:13 Albuterol 5 mg Nebulizer once ordered. mo1 20:13 Pulse ox continuous ordered. mo1 20:15 Chest, 2 View (pa\E\lat) Ordered. EDMS 20:15 CBC with Diff Ordered. EDMS 20:15 BMP Ordered. EDMS 20:15 -Influenza A&B Rapid Antigen - Nose Ordered. EDMS 21:18 Financial registration complete. zo 21:23 CBC with Diff Reviewed. mo1 21:23 BMP Reviewed. mo1 21:23 -Influenza A&B Rapid Antigen - Nose Reviewed. mo1 21:31 Albuterol 2.5 mg Nebulizer once ordered. mo1 21:31 Tessalon 200 mg PO once ordered. mo1 22:09 [facility] Payment Agreement was scanned into [employer] and attached to record. zo 22:18 BED REQUEST+ADM ordered. EDMS 22:21 Admission / Observation Status ordered. EDMS 22:21 COPD DIET ordered. EDMS 22:22 CBC WITH DIFFERENTIAL Ordered. EDMS 22:22 BASIC METABOLIC PROFILE Ordered. EDMS 22:22 THYROID STIMULATING HORMONE Ordered. EDMS 22:22 CARDIAC RISK PROFILE Ordered. EDMS 22:22 MAGNESIUM LEVEL Ordered. EDMS 22:22 C REACTIVE PROTEIN QUANTITATIV Ordered. EDMS 22:22 ERYTHROCYTE SEDIMENTATION RATE Ordered. EDMS 22:22 CARDIAC MARKER PANEL Ordered. EDMS 22:23 CARDIAC MARKER PANEL Ordered. EDMS 22:23 SPUTUM CULTURE AND GRAM STAIN Ordered. EDMS 22:23 RESPIRATORY PANEL Ordered. EDMS 22:23 MRSA SCREEN Ordered. EDMS 22:24 PHYSICAL THERAPY EVAL & TREAT ordered. EDMS 22:25 ELECTROCARDIOGRAM ADULT ordered. EDMS 22:28 CARDIAC MARKER PANEL Ordered. EDMS Administered Medications: 20:23 Drug: Albuterol-Ipratropium 3 ml [ipratropium-albuterol 0.5 mg-3 mg(2.5 mg base)/3 mL jc3 nebulization soln (3 mL)] Route: Inhalation; 20:23 Drug: Albuterol 5 mg [albuterol sulfate 2.5 mg/0.5 mL solution for nebulization (1 mL)] jc3 Route: Nebulizer; 20:43 Drug: Solu-MEDROL 125 mg [Solu-Medrol 500 mg intravenous solution (125 mg)] Route: IVP; rs3 Site: left antecubital; 21:34 Drug: Tessalon 200 mg Route: PO; mf4 21:51 Drug: Albuterol 2.5 mg [albuterol sulfate 2.5 mg/0.5 mL solution for nebulization (0.5 jc3 mL)] Route: Nebulizer; Signatures: Dispatcher [employer] EDMS Cristine Lazo Teresa, RN RN ttb Dmitriy Steinbergsa, GENERATOR MECHANIC GENERATOR MECHANIC tmm1 Otto Hartman PA PA mo1 Sandra Villela,RN RN kc3 Jama Parra jc3 Maricruz Odonnell RN rs3 Nate Jewell LPN mf4 The chart was reviewed and I authenticate all verbal orders and agree with the evaluation and treatment provided.Corrections: (The following items were deleted from the chart) 22:27 22:26 CARDIAC MARKER PANEL ordered. EDMS EDMS Attachments: 22:09 [facility] Payment Agreement zo MTDD
[2016-05-28 23:38] VITALS: BP_SYST 134; BP_SYST 137; BP_DIAS 74; BP_DIAS 75
[2016-05-29] MEDS: ACETAMINOPHEN 500 MG TAB PO SCH ×5 (00:18→23:26)
[2016-05-29] MEDS: AZITHROMYCIN INJ 500 MG, VIAL MATE ADAPTER 1 EACH in D5W 250 ML IV SCH ×2 (00:19→23:27)
[2016-05-29] MEDS: ATENOLOL 25 MG TAB PO SCH ×3 (00:37→20:50)
[2016-05-29] MEDS: busPIRone 10 MG TAB PO SCH ×3 (00:38→21:01)
--- NOTE | 2016-05-29 00:42 | REP ---
Clinical: Cough. Technique: PA and lateral. Comparison: 05/24/2016. Findings: COPD and emphysematous changes are appreciated and stable. Mediastinum and cardiac silhouette normal. No focal consolidation, effusion, or pneumothorax. Skeletal structures intact. Impression: Stable COPD. No acute cardiopulmonary process. Signed by Sreedhar Aguero MD 05/29/2016 12:32 A
--- NOTE | 2016-05-29 00:58 | HPE ---
DATE OF ADMISSION: 05/28/2016 PRIMARY CARE PROVIDER: Sherron Valerio. INPATIENT HOSPITALIST ATTENDING: Bishop Franco MD. CHIEF COMPLAINT: Wheezing, shortness of breath. 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 Patient noted sore throat on Sunday and her ears were hurting, a low-grade fever at home, which was undocumented, no medications, and muscle aches. She had taken left over antibiotics from her previous prescribed by her physician and went to work on Sunday night. Around noontime on Sunday patient had worsening shortness of breath and wheezing, did not feel well at work and was sent home. At that time, she had increasing trouble breathing and was seen in the minor treatment emergency room on Sunday night when was prescribed prednisone taper and Avelox. Despite taking these medications, she has had increasing exercise intolerance, wheezing and re-presents to the emergency room today. She had one episode of diarrhea this morning, which was loose. She has had no relief with her breathing treatments. She otherwise denies any chest pain, pressure or tightness, nausea, vomiting, abdominal pain, dysuria, urgency, frequency, fever, chills, weight gain, weight loss, or decrease in appetite. Hospitalist service was called for admission for COPD exacerbation. PAST MEDICAL HISTORY: 1. Graves disease. 2. COPD. 3. Anxiety. 4. Colonic polyps. 5. Family history of Cruz syndrome. 6. Uterine sarcoma. PAST SURGICAL HISTORY: 1. Hysterectomy 2006 with uterine sarcoma. 2. Cholecystectomy. 3. Appendectomy. 4. Colectomy. ALLERGIES: No known drug allergies. HOME MEDICATIONS: - Avelox 400 mg daily - prednisone taper - atenolol 25 daily - BuSpar 10 daily - omeprazole 40 daily - levothyroxine 112 mcg daily - Tylenol 325 one gram every 6 hours SOCIAL HISTORY: Patient has been a cigarette smoker since the age of 19, about a pack a day, currently smokes about a half a pack a day. She works at [employer] in [employer]. No alcohol use. FAMILY HISTORY: Mother at age 53 with liver cancer and family history of Cruz syndrome. Father age 86 with lung cancer. She has two brothers, one with prostate cancer and another with colon cancer. A sister is with colon and stomach cancer. REVIEW OF SYSTEMS: Per history of present illness (HPI). 12-point system obtained all of which are negative aside from positive findings on history of present illness. PHYSICAL EXAMINATION: VITAL SIGNS: Blood pressure 131/104, pulse 126 sinus tachycardia, respiratory rate 20, temperature 96.7, 95% on room air, 88% on room air with ambulation. 49.9 kg, 5 feet 4 inches tall. GENERAL: Patient is awake, alert, oriented times three, answering questions appropriately. No use of respiratory accessory muscles. No cyanosis, pallor, icterus or jaundice. Patient is able to complete full sentences with no conversational dyspnea. HEENT: She has missing teeth and poor dentition. Dry mucous membranes. Pupils are round, reactive to light and accommodation. Extraocular muscles are intact. Normocephalic, atraumatic. No jugular venous distention, thyromegaly, cervical lymphadenopathy or pharyngeal erythema. LUNGS: Diminished with prolonged expiration, bilateral expiratory wheezing. HEART: S1, S2, sinus tachycardia. No murmurs, rubs or gallops. ABDOMEN: Soft, nontender, nondistended. Positive bowel sounds times four quadrants. No hepatosplenomegaly. EXTREMITIES: No cyanosis, clubbing or pitting edema. LABORATORY DATA: White count 6, hemoglobin 17, hematocrit 52, platelet count 308, 82% neutrophils. Sodium 142, potassium 4.2, chloride 103, bicarbonate 29, BUN 11, creatinine 0.82 , glucose 124, calcium 9. Influenza A and B are both negative. EKG is pending. Chest x-ray no official reading, hyperinflation, no infiltrate, consolidation or pleural effusion. ASSESSMENT AND PLAN: This is a 55-year-old female with history of chronic obstructive pulmonary disease (COPD), family history of Cruz syndrome, colon polyps status post colectomy, Graves disease, anxiety, uterine sarcoma status post hysterectomy, cholecystectomy, appendectomy, actively uses tobacco with more than 50 pack-year history of smoking, presented to the emergency room on Sunday due to worsening shortness of breath, was treated for COPD exacerbation, returned Sunday with worsening symptoms. Patient will be admitted as an inpatient for two midnights under hospitalist service, attending physician Dr. Bishop Franco for the following issues: 1. Acute COPD exacerbation. Patient will be given intravenous (IV) Solu-Medrol , IV ceftriaxone, azithromycin, nebulizer treatments, supplemental oxygen for saturations less than 87%. Tobacco cessation counseling. 2. History of colon polyps status post colectomy with family history of Cruz syndrome, stable. 3. History of Graves disease, resume home dose of levothyroxine. 4. Reflux, continue on Prilosec. 5. Hypertension, continue on atenolol. 6. Deep venous thrombosis (DVT) prophylaxis with Lovenox. 7. Active smoking, tobacco cessation counseling and nicotine patch. Patient will be assigned Dr. Bishop Franco at 7 a.m. on 05/29/2016, hospitalist service. CHASIDY
[2016-05-29] MEDS ORDERED: ONDANSETRON 4MG/2ML VIAL (J2405) IV PRN (02:30)
[2016-05-29] MEDS: LEVALBUTEROL 1.25 MG/0.5 ML CONCENTRATE NEB NEB SCH ×4 (03:40→20:00)
[2016-05-29] MEDS: IPRATROPIUM 0.02% SOLN 0.5MG/2.5 ML NEB NEB SCH ×4 (03:40→20:00)
[2016-05-29 05:00] VITALS: BP 103/67
[2016-05-29] MEDS ORDERED: methylPREDNISolone INJ 125 MG/2 ML VIAL (J2930) IV SCH ×2 (05:00→14:00)
[2016-05-29] MEDS: LEVOTHYROXINE 0.112 MG TAB (112 MCG) PO SCH (06:48)
[2016-05-29 07:07] LABS: BASO % 0.1 % (0.0-1.0); EOS % 0.2 % (0.0-3.0); LARGE UNSTAINED CELL # 0.2 K/mm3 (0.0-0.4); LARGE UNSTAINED CELL % 1.7 % (0.0-4.0); LYMPH # 1.2 K/mm3 (1.5-4.5); LYMPH % 13.6 % (24.0-44.0); MEAN CORPUSCULAR HEMOGLOBIN 31.9 pg (27.0-33.0); MEAN CORPUSCULAR HGB CONC 33.9 g/dl (32.0-36.5); MEAN CORPUSCULAR VOLUME 94.1 fl (80.0-96.0); MONO # 0.4 K/mm3 (0.0-0.8); NEUTROPHILS # 6.8 K/mm3 (1.8-7.7); NEUTROPHILS % 79.3 % (36.0-66.0); PLATELET COUNT, AUTOMATED 276 k/mm3 (150-450); RED CELL DISTRIBUTION WIDTH 11.7 % (11.5-14.5); WHITE BLOOD COUNT 8.6 K/mm3 (4.0-10.0)
[2016-05-29 07:24] LABS: ANION GAP 13 MEQ/L (8-16); BLOOD UREA NITROGEN 10 MG/DL (7-18); CALCIUM LEVEL 8.6 MG/DL (8.5-10.1); CARBON DIOXIDE LEVEL 25 MEQ/L (21-32); CHLORIDE LEVEL 103 MEQ/L (98-107); CHOLESTEROL LEVEL 161 MG/DL (<200); CREATININE FOR GFR 0.88 MG/DL (0.55-1.02); GLOMERULAR FILTRATION RATE > 60.0 (>51); GLUCOSE, FASTING 146 MG/DL (70-105); MAGNESIUM LEVEL 2.2 MG/DL (1.8-2.4); POTASSIUM SERUM 3.3 MEQ/L (3.5-5.1); SODIUM LEVEL 141 MEQ/L (136-145); TRIGLYCERIDES LEVEL 51 MG/DL (<150)
[2016-05-29] MEDS: SYMBICORT 80/4.5MCG INHALER 6GM INH SCH ×2 (07:46→21:22)
[2016-05-29 08:00] VITALS: BP 137/65
[2016-05-29 08:11] LABS: ERYTHROCYTE SEDIMENTATION RATE 4 mm/hr (0-30)
[2016-05-29] MEDS: HEPARIN SOD (PORCINE) 5000 UNITS/ML VIAL SQ SCH ×2 (08:37→21:00)
[2016-05-29] MEDS: NICOTINE 7 MG/24 HR TRANSDERMAL TD SCH (08:39)
[2016-05-29] MEDS ORDERED: ATENOLOL 25 MG TAB PO SCH (09:00)
[2016-05-29] MEDS ORDERED: busPIRone 10 MG TAB PO SCH (09:00)
[2016-05-29] MEDS ORDERED: POTASSIUM CHLORIDE 10 MEQ SR TABLET PO ONE (09:00)
[2016-05-29 16:00] VITALS: BP 114/65
[2016-05-29] MEDS ORDERED: PRED10TA PO (16:19)
--- NOTE | 2016-05-29 16:46 | DSES ---
DATE OF ADMISSION: 05/28/2016 DATE OF DISCHARGE: PRIMARY CARE PROVIDER: DAV Hinojosa FINAL DIAGNOSES: 1. Coronavirus. 2. Acute chronic obstructive pulmonary disease (COPD) exacerbation secondary to coronavirus infection. 3. History of smoking. 4. Gastroesophageal reflux disease (GERD). 5. Hypertension. 6. History of colon polyps. 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 Went to work on Sunday night but returned with worsening shortness of breath, wheezing, did not feel well, did not go to work, patient had increased trouble breathing, was seen in minor treatment in the emergency room, prescribed prednisone and Avelox. Despite medication her condition continued to worsen. Subsequently, she presented to the hospital again on 05/28/2016, and subsequently was admitted. HOSPITAL COURSE: Cultures were sent. Chest xray was obtained showing chronic COPD. Influenza initially was negative. Respiratory panel came back today with coronavirus. Patient was initially started on Rocephin and azithromycin as well as Solu-Medrol. Steroids were tapered given C-reactive protein was negative. Cardiac enzymes were also negative. Outpatient antibiotics of Rocephin was discontinued. Steroids were tapered. Patient's condition progressively improved. If patient continues to improve tomorrow, likely discharge on 05/30/2016, with outpatient steroid taper. VITAL SIGNS: Temperature 97.3, pulse 76, respirations 20, blood pressure 137/65, pulse oximetry 94% on room air. Patient able to ambulate. DISCHARGE MEDICATIONS: - prednisone taper 10 mg tablets, take four tablets by mouth daily for 2 days, three tablets by mouth daily for 2 days, two tablets by mouth daily for 2 days, then one tablet by mouth daily for 2 days, then stop Continue home medications: - acetaminophen 500 mg by mouth every 4 hours as needed - Ventolin inhaler every 4 hours as needed - atenolol 25 mg by mouth twice a day - buspirone 10 mg by mouth twice a day - Synthroid 112 mcg by mouth daily - omeprazole 40 mg by mouth nightly DISCHARGE INSTRUCTIONS: Followup with primary care provider in 7 days. Stop smoking. Return to the hospital if symptoms worsen. Likely discharge 05/30/2016 if patient's condition continues to improve.
[2016-05-29] MEDS: methylPREDNISolone INJ 125 MG/2 ML VIAL (J2930) IV SCH (17:16)
[2016-05-29 20:00] VITALS: BP 102/62
[2016-05-30] VITALS: BP 112/62
[2016-05-30] MEDS: IPRATROPIUM 0.02% SOLN 0.5MG/2.5 ML NEB NEB SCH ×2 (01:32→08:00)
[2016-05-30] MEDS: LEVALBUTEROL 1.25 MG/0.5 ML CONCENTRATE NEB NEB SCH ×2 (01:32→08:00)
[2016-05-30] MEDS: ACETAMINOPHEN 500 MG TAB PO SCH (06:00)
[2016-05-30] MEDS: methylPREDNISolone INJ 125 MG/2 ML VIAL (J2930) IV SCH (06:25)
[2016-05-30] MEDS: LEVOTHYROXINE 0.112 MG TAB (112 MCG) PO SCH (06:25)
[2016-05-30 07:07] LABS: ANION GAP 8 MEQ/L (8-16); BASO % 0.1 % (0.0-1.0); BLOOD UREA NITROGEN 6 MG/DL (7-18); CALCIUM LEVEL 8.4 MG/DL (8.5-10.1); CARBON DIOXIDE LEVEL 30 MEQ/L (21-32); CHLORIDE LEVEL 104 MEQ/L (98-107); CREATININE FOR GFR 0.73 MG/DL (0.55-1.02); EOS % 0.3 % (0.0-3.0); GLOMERULAR FILTRATION RATE > 60.0 (>51); GLUCOSE, FASTING 109 MG/DL (70-105); LARGE UNSTAINED CELL # 0.2 K/mm3 (0.0-0.4); LARGE UNSTAINED CELL % 1.8 % (0.0-4.0); LYMPH % 17.6 % (24.0-44.0); MONO # 0.7 K/mm3 (0.0-0.8); MONO % 6.9 % (0.0-5.0); NEUTROPHILS # 7.7 K/mm3 (1.8-7.7); NEUTROPHILS % 73.3 % (36.0-66.0); PLATELET COUNT, AUTOMATED 270 k/mm3 (150-450); POTASSIUM SERUM 3.5 MEQ/L (3.5-5.1); RED CELL DISTRIBUTION WIDTH 11.9 % (11.5-14.5); SODIUM LEVEL 142 MEQ/L (136-145); WHITE BLOOD COUNT 10.5 K/mm3 (4.0-10.0)
[2016-05-30 07:51] VITALS: BP 122/74
[2016-05-30] MEDS: SYMBICORT 80/4.5MCG INHALER 6GM INH SCH (08:10)
[2016-05-30 08:20] VITALS: BP 122/74
[2016-05-30] MEDS: busPIRone 10 MG TAB PO SCH (08:20)
[2016-05-30] MEDS: HEPARIN SOD (PORCINE) 5000 UNITS/ML VIAL SQ SCH (08:20)
[2016-05-30] MEDS: ATENOLOL 25 MG TAB PO SCH (08:20)
[2016-05-30] MEDS: NICOTINE 7 MG/24 HR TRANSDERMAL TD SCH (08:20)
[2016-05-30] MEDS ORDERED: SYMB80INH INH (11:10)
--- NOTE | 2016-05-31 00:23 | EDDOCDS ---
Nurse's Notes [facility] Name: Jose Puentes Age: 55 yrs Sex: Female : 1960 Arrival Date: 05/28/2016 Time: 19:28 Bed I4 / M4 Private MD: Diagnosis: Chronic obstructive pulmonary disease with (acute) exacerbation;Acute bronchitis Presentation: 05/28 19:33 Presenting complaint: Patient states: pt was seen here Sunday for SOB. Treated and ttb is not improving. Unable to move short distances without increased SOB. Cough. Adult Sepsis Screening: The patient does not have new or worsening altered mentation. Patient's respiratory rate is less than 22. Systolic blood pressure is greater than 100. Patient has a qSOFA score of 0- Negative Sepsis Screen. Suicide/Homicide risk assessment- the patient denies having any suicidal and/or homicidal ideations and does not present with any other emotional, behavioral or mental health complaints. 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 Transition of care: patient was not received from another setting of care. 19:33 Acuity: MELIZA Level 3 ttb 19:33 Method Of Arrival: Walkin/Carried/Asstd ttb Triage Assessment: 19:38 General: Appears uncomfortable, well nourished, well groomed, Behavior is anxious, ttb appropriate for age, cooperative, pleasant, restless. Pain: Denies pain. HIV screening NA for this visit Offered previously. Neurological: Level of Consciousness is awake, alert. Cardiovascular: Chest pain is denied. Respiratory: Airway is patent Respiratory effort is even, unlabored, Respiratory pattern is regular, tachypnea Reports shortness of breath at rest on exertion cough that is non-productive, labored breathing the patient has moderate shortness of breath. Derm: Skin is normal. 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 levothyroxine 112 mcg Oral tab 1 tab once daily (Last dose: 05/25/2016 08:00) 2. omeprazole 40 mg Oral cpDR 1 cap once daily (Last dose: 05/27/2016 20:00) 3. BuSpar Oral 10 mg daily (Last dose: 05/28/2016 08:00) 4. atenolol 25 mg Oral tab 1 tab once daily (Last dose: 05/28/2016 08:00) 5. prednisone 10 mg oral tab once daily (Last dose: 05/28/2016 13:00) 6. avalox 400mg daily (Last dose: 05/28/2016 12:45) 7. Tylenol 325 mg Oral tab 1000 mg every 6 hours (Last dose: 05/27/2016 22:00) - PMHx: graves disease; Emphysema; Anxiety; colon polyps; - PSHx: Hysterectomy; Cholecystectomy; Appendectomy; colectomy; - Social history: Smoking status: Patient uses tobacco products, current every day smoker. Patient/guardian denies using alcohol, street drugs, No barriers to communication noted, The patient speaks fluent Luxembourger, Speaks appropriately for age. - Family history: Not pertinent. - : The pt / caregiver states he / she is not on anticoagulants. Home medication list is obtained from the patient. - Exposure Risk Screening:: None identified. Screenin:43 Screening information is obtained from the patient. Fall risk: No risks identified. rs3 Assistance ADL's: requires no assistance with activities of daily living. Abuse/DV Screen: The patient / caregiver reports he/she is: not in a situation that causes fear, pain or injury. Nutritional screening: No deficits noted. Advance Directives: Currently, there is no health care proxy. home support is adequate. Assessment: 20:42 General: Appears in no apparent distress, Behavior is appropriate for age, cooperative. rs3 Pain: Denies pain. Cardiovascular: Capillary refill < 3 seconds Clubbing of nail beds is absent Chest pain is denied. Respiratory: Airway is patent Respiratory effort is even, unlabored, Respiratory pattern is regular, symmetrical, Breath sounds with wheezes bilaterally. Derm: Skin is pink, warm & dry. 21:58 General: Appears in no apparent distress, Behavior is cooperative, denies of rs3 pain/distress. respiratory therapist with patient, getting neb treatment. breathes easy. 23:19 General: Appears in no apparent distress, comfortable, Behavior is appropriate for age, kc3 cooperative. Pain: Denies pain. Respiratory: Airway is patent Respiratory effort is even, unlabored, Reports shortness of breath at rest. Derm: Skin is pink, warm & dry. Vital Signs: 19:30 BP 131 / 104; Pulse 126; Resp 20; Temp 96.7(O); Pulse Ox 95% on R/A; Weight 49.9 kg lr2 (R); Height 5 ft. 4 in. (162.56 cm) (R); Pain 0/10; 21:59 Pulse 108; Resp 20; Pulse Ox 91% on R/A; rs3 22:11 Pulse 109; Pulse Ox 88% on R/A; mf4 23:16 BP 130 / 82; Pulse 120; Resp 20; Temp 97.8(O); Pulse Ox 89% on R/A; Pain 0/10; kc3 19:30 Body Mass Index 18.88 (49.90 kg, 162.56 cm) lr2 Vitals: 19:30 Log In Time: May 28, 2016 at 19:28. lr2 ED Course: 19:30 Patient visited by Virgen Beyer. lr2 19:30 Patient moved to Waiting lr2 19:34 Triage Initiated ttb 19:59 Patient moved to Pre RCE ms18 20:01 Patient moved to Triage 1 ar3 20:02 Otto Hartman PA is PHCP. mo1 20:02 Tree Bailey DO is Attending Physician. mo1 20:09 Patient visited by Otto Hartman PA. mo1 20:15 Patient moved to I4 / M4 ms18 20:34 -Influenza A&B Rapid Antigen - Nose Sent. mf4 20:34 BMP Sent. mf4 20:34 CBC with Diff Sent. mf4 20:35 The patient / caregiver is instructed regarding the plan of care and ED course. mf4 20:35 Inserted saline lock: 20 gauge in left antecubital area and blood collected. The mf4 patient tolerated the procedure well. 20:42 Patient visited by Maricruz Odonnell,STEPHANIE. rs3 21:58 Patient visited by Maricruz Odonnell RN. rs3 22:09 [facility] [place] was scanned into [employer] and attached to record. zo 22:17 Jessica Adrian is Hospitalizing Provider. mo1 23:19 No procedures done that require assistance. kc3 05/29 10:33 T-Sheet-- Draft Copy was scanned into [employer] and attached to record. gb Administered Medications: 05/28 20:23 Drug: Albuterol-Ipratropium 3 ml [ipratropium-albuterol 0.5 mg-3 mg(2.5 mg base)/3 mL jc3 nebulization soln (3 mL)] Route: Inhalation; 20:23 Drug: Albuterol 5 mg [albuterol sulfate 2.5 mg/0.5 mL solution for nebulization (1 mL)] jc3 Route: Nebulizer; 20:43 Drug: Solu-MEDROL 125 mg [Solu-Medrol 500 mg intravenous solution (125 mg)] Route: IVP; rs3 Site: left antecubital; 21:34 Drug: Tessalon 200 mg Route: PO; mf4 21:51 Drug: Albuterol 2.5 mg [albuterol sulfate 2.5 mg/0.5 mL solution for nebulization (0.5 jc3 mL)] Route: Nebulizer; RT: 20:24 Initial Med Neb Given as ordered. Respiratory: Breath sounds are diminished jc3 bilaterally. Breath sounds with wheezes bilaterally. at expiration. 21:51 Subsequent Med Neb Given as ordered. Respiratory: Breath sounds are diminished Breath jc3 sounds with wheezes bilaterally. at expiration. Order Results: Lab Order: CBC with Diff; SPEC'M 05/28/16 20:32 Test: WHITE BLOOD COUNT; Value: 6.0; Range: 4.0-10.0; Units: K/mm3; Status: F Test: RED BLOOD COUNT; Value: 5.52; Range: 4.00-5.40; Abnormal: Above high normal; Units: M/mm3; Status: F Test: HEMOGLOBIN; Value: 17.3; Range: 12.0-16.0; Abnormal: Above high normal; Units: g/dl; Status: F Test: HEMATOCRIT; Value: 52.8; Range: 36.0-47.0; Abnormal: Above high normal; Units: %; Status: F Test: MEAN CORPUSCULAR VOLUME; Value: 95.5; Range: 80.0-96.0; Units: fl; Status: F Test: MEAN CORPUSCULAR HEMOGLOBIN; Value: 31.3; Range: 27.0-33.0; Units: pg; Status: F Test: MEAN CORPUSCULAR HGB CONC; Value: 32.8; Range: 32.0-36.5; Units: g/dl; Status: F Test: RED CELL DISTRIBUTION WIDTH; Value: 11.9; Range: 11.5-14.5; Units: %; Status: F Test: PLATELET COUNT, AUTOMATED; Value: 308; Range: 150-450; Units: k/mm3; Status: F Test: NEUTROPHILS %; Value: 82.3; Range: 36.0-66.0; Abnormal: Above high normal; Units: %; Status: F Test: LYMPH %; Value: 13.9; Range: 24.0-44.0; Abnormal: Below low normal; Units: %; Status: F Test: MONO %; Value: 2.0; Range: 0.0-5.0; Units: %; Status: F Test: EOS %; Value: 0.9; Range: 0.0-3.0; Units: %; Status: F Test: BASO %; Value: 0.1; Range: 0.0-1.0; Units: %; Status: F Test: LARGE UNSTAINED CELL %; Value: 0.8; Range: 0.0-4.0; Units: %; Status: F Test: NEUTROPHILS #; Value: 5.0; Range: 1.8-7.7; Units: K/mm3; Status: F Test: LYMPH #; Value: 0.9; Range: 1.5-4.5; Abnormal: Below low normal; Units: K/mm3; Status: F Test: MONO #; Value: 0.1; Range: 0.0-0.8; Units: K/mm3; Status: F Test: EOS #; Value: 0.0; Range: 0.0-0.50; Units: K/mm3; Status: F Test: BASO #; Value: 0.0; Range: 0.0-0.2; Units: K/mm3; Status: F Test: LARGE UNSTAINED CELL #; Value: 0.1; Range: 0.0-0.4; Units: K/mm3; Status: F Lab Order: [facility] [place]; SPEC'M 05/28/16 20:32 Test: GLUCOSE, FASTING; Value: 124; Range: 70-105; Abnormal: Above high normal; Units: MG/DL; Status: F Test: BLOOD UREA NITROGEN; Value: 11; Range: 7-18; Units: MG/DL; Status: F Test: CREATININE FOR GFR; Value: 0.82; Range: 0.55-1.02; Units: MG/DL; Status: F Test: GLOMERULAR FILTRATION RATE; Value: > 60.0; Range: >51; Status: F Test: SODIUM LEVEL; Value: 142; Range: 136-145; Units: MEQ/L; Status: F Test: POTASSIUM SERUM; Value: 4.2; Range: 3.5-5.1; Units: MEQ/L; Status: F Test: CHLORIDE LEVEL; Value: 103; Range: 98-107; Units: MEQ/L; Status: F Test: CARBON DIOXIDE LEVEL; Value: 29; Range: 21-32; Units: MEQ/L; Status: F Test: ANION GAP; Value: 10; Range: 8-16; Units: MEQ/L; Status: F Test: CALCIUM LEVEL; Value: 9.0; Range: 8.5-10.1; Units: MG/DL; Status: F Test Note: ; Units are mL/min/1.73 m2 Chronic Kidney Disease Staging per NKF: Stage I & II GFR >=60 Normal to Mildly Decreased Stage III GFR 30-59 Moderately Decreased Stage IV GFR 15-29 Severely Decreased Stage V GFR <15 Very Little GFR Left ESRD GFR <15 on SIDE SPLITTER Lab Order: -Influenza A&B Rapid Antigen - Nose; SPEC'M 05/28/16 20:32 Test: INFLUENZA A RAPID SCR by ICA; Value: INFLUENZA A RESULTS NEGATIVE; Status: F Test: INFLUENZA A RAPID SCR by ICA; Value: Comments:; Status: F Test: INFLUENZA B RAPID SCR by ICA; Value: INFLUENZA B RESULTS NEGATIVE; Status: F Test Note: ; The Influenza test is a direct rapid immunoassay for the qualitative detection of Influenza viral antigen. Cell culture (Viral Culture) testing should be considered to confirm NEGATIVE results and to assist in detecting other viruses that can provide similar clinical symptoms. Please contact the lab within 24 hours ([phone]) if confirmatory testing is desired. Lab Order: CARDIAC MARKER PANEL; SPEC'M 05/28/16 20:32 Test: CPK CREATINE PHOSPHOKINASE; Value: 58; Range: 26-192; Units: U/L; Status: F Test: CK-MB VALUE MASS; Value: 1.0; Range: 0.0-3.6; Units: NG/ML; Status: F Test: MB/CK RELATIVE INDEX; Value: 1.72; Range: < OR =4; Status: F Test: TROPONIN I; Value: < 0.02; Range: < 0.10; Units: NG/ML; Status: F Test Note: ; DIAGNOSIS CRITERIA MMB ng/ml Relative Index (RI) NON-AMI < or = 5 N/A [place] > 5 < or = 4 AMI > 5 > 4 Outcome: 22:17 Decision to Hospitalize by Provider. mo1 23:17 Discharge Assessment: patient administered narcotics - no. Admitted to [facility] accompanied by tech, via wheelchair, with chart. The following High Risk Discharge criteria are identified: None. Condition: stable. CT Study completed. Admission hand-off: Report called to STEPHANIE Raymond. Property :Personal belongings accompany Pt. 23:23 Patient left the ED. [facility] Signatures: Libby Greco, Reg Reg gb Clifton, Cristine zo Jama Parra jc3 Maricruz Odonnell,RN RN rs3 Letty Linn, HOLTER SCANNING TECHNICIAN HOLTER SCANNING TECHNICIAN ar3 Nate Jewell,DEVELOPMENT ARCHITECT DEVELOPMENT ARCHITECT mf4 Juana Briggs RN RN ttb Otto Hartman PA PA mo1 Lindsay ChiRN RN [id number] Sandra Villela RN RN kc3 Virgen Beyer lr2 Chart Complete MTDD
--- NOTE | 2016-05-31 00:23 | EDDOCDS ---
Physician Documentation [facility] Name: Jose Puentes Age: 55 yrs Sex: Female : 1960 Arrival Date: 05/28/2016 Time: 19:28 Bed I4 / M4 Private MD: Disposition: 05/28/16 22:17 Hospitalization ordered by Jessica Adrian for Inpatient Admission. Preliminary diagnosis are Chronic obstructive pulmonary disease with (acute) exacerbation, Acute bronchitis. - Bed requested for M PED. - Status is Inpatient Admission. kc3 - Condition is Stable. - Problem is an acute exacerbation. - Symptoms are unchanged. Historical: - Allergies: no known allergies; - Home Meds: 1. levothyroxine 112 mcg Oral tab 1 tab once daily (Last dose: 05/25/2016 08:00) 2. omeprazole 40 mg Oral cpDR 1 cap once daily (Last dose: 05/27/2016 20:00) 3. BuSpar Oral 10 mg daily (Last dose: 05/28/2016 08:00) 4. atenolol 25 mg Oral tab 1 tab once daily (Last dose: 05/28/2016 08:00) 5. prednisone 10 mg oral tab once daily (Last dose: 05/28/2016 13:00) 6. avalox 400mg daily (Last dose: 05/28/2016 12:45) 7. Tylenol 325 mg Oral tab 1000 mg every 6 hours (Last dose: 05/27/2016 22:00) - PMHx: graves disease; Emphysema; Anxiety; colon polyps; - PSHx: Hysterectomy; Cholecystectomy; Appendectomy; colectomy; - Social history: Smoking status: Patient uses tobacco products, current every day smoker. Patient/guardian denies using alcohol, street drugs, No barriers to communication noted, The patient speaks fluent Kazakh, Speaks appropriately for age. - Family history: Not pertinent. - : The pt / caregiver states he / she is not on anticoagulants. Home medication list is obtained from the patient. - Exposure Risk Screening:: None identified. 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 4 in. (162.56 cm) (R); Pain 0/10; 21:59 Pulse 108; Resp 20; Pulse Ox 91% on R/A; rs3 22:11 Pulse 109; Pulse Ox 88% on R/A; mf4 23:16 BP 130 / 82; Pulse 120; Resp 20; Temp 97.8(O); Pulse Ox 89% on R/A; Pain 0/10; kc3 19:30 Body Mass Index 18.88 (49.90 kg, 162.56 cm) lr2 MDM: 20:13 IV Saline Lock ordered. mo1 20:13 Solu-MEDROL 125 mg IVP once ordered. mo1 20:13 Albuterol-Ipratropium 3 ml Inhalation once ordered. mo1 20:13 Albuterol 5 mg Nebulizer once ordered. mo1 20:13 Pulse ox continuous ordered. mo1 20:15 Chest, 2 View (pa\E\lat) Ordered. EDMS 20:15 CBC with Diff Ordered. EDMS 20:15 BMP Ordered. EDMS 20:15 -Influenza A&B Rapid Antigen - Nose Ordered. EDMS 21:18 Financial registration complete. zo 21:23 CBC with Diff Reviewed. mo1 21:23 BMP Reviewed. mo1 21:23 -Influenza A&B Rapid Antigen - Nose Reviewed. mo1 21:31 Albuterol 2.5 mg Nebulizer once ordered. mo1 21:31 Tessalon 200 mg PO once ordered. mo1 22:09 COUNT INCLUDES THE [facility] Payment Agreement was scanned into [employer] and attached to record. zo 22:18 BED REQUEST+ADM ordered. EDMS 22:21 Admission / Observation Status ordered. EDMS 22:21 COPD DIET ordered. EDMS 22:22 CBC WITH DIFFERENTIAL Ordered. EDMS 22:22 BASIC METABOLIC PROFILE Ordered. EDMS 22:22 THYROID STIMULATING HORMONE Ordered. EDMS 22:22 CARDIAC RISK PROFILE Ordered. EDMS 22:22 MAGNESIUM LEVEL Ordered. EDMS 22:22 C REACTIVE PROTEIN QUANTITATIV Ordered. EDMS 22:22 ERYTHROCYTE SEDIMENTATION RATE Ordered. EDMS 22:22 CARDIAC MARKER PANEL Ordered. EDMS 22:23 CARDIAC MARKER PANEL Ordered. EDMS 22:23 SPUTUM CULTURE AND GRAM STAIN Ordered. EDMS 22:23 RESPIRATORY PANEL Ordered. EDMS 22:23 MRSA SCREEN Ordered. EDMS 22:24 PHYSICAL THERAPY EVAL & TREAT ordered. EDMS 22:25 ELECTROCARDIOGRAM ADULT ordered. EDMS 22:28 CARDIAC MARKER PANEL Ordered. EDMS 05/29 10:33 T-Sheet-- Draft Copy was scanned into [employer] and attached to record. gb Administered Medications: 05/28 20:23 Drug: Albuterol-Ipratropium 3 ml [ipratropium-albuterol 0.5 mg-3 mg(2.5 mg base)/3 mL jc3 nebulization soln (3 mL)] Route: Inhalation; 20:23 Drug: Albuterol 5 mg [albuterol sulfate 2.5 mg/0.5 mL solution for nebulization (1 mL)] jc3 Route: Nebulizer; 20:43 Drug: Solu-MEDROL 125 mg [Solu-Medrol 500 mg intravenous solution (125 mg)] Route: IVP; rs3 Site: left antecubital; 21:34 Drug: Tessalon 200 mg Route: PO; mf4 21:51 Drug: Albuterol 2.5 mg [albuterol sulfate 2.5 mg/0.5 mL solution for nebulization (0.5 jc3 mL)] Route: Nebulizer; Signatures: Dispatcher [employer] EDMS Libby Greco, Reg Reg gb Cristine Lazo Teresa, STEPHANIE RN ttb Chantell Steinberg, NAFISA TRADEMARK PARALEGAL tmm1 Otto Hartman PA PA mo1 Sandra Villela,STEPHANIE RN olivier3 Jama Parra jc3 Maricruz Odonnell RN rs3 aNte Jewell LPN mf4 The chart was reviewed and I authenticate all verbal orders and agree with the evaluation and treatment provided.Corrections: (The following items were deleted from the chart) 22: CARDIAC MARKER PANEL ordered. EDMS EDMS Attachments: 22:09 [facility] [place] Agreement zo 05/29 10:33 T-Sheet-- Draft Copy gb Chart Complete MTDD
--- NOTE | 2016-05-31 00:23 | EDDOCDS ---
Physician Documentation [facility] Name: Jose Puentes Age: 55 yrs Sex: Female : 1960 Arrival Date: 05/28/2016 Time: 19:28 Bed I4 / M4 Private MD: Disposition: 05/28/16 22:17 Hospitalization ordered by Jessica Adrian for Inpatient Admission. Preliminary diagnosis are Chronic obstructive pulmonary disease with (acute) exacerbation, Acute bronchitis. - Bed requested for M PED. - Status is Inpatient Admission. kc3 - Condition is Stable. - Problem is an acute exacerbation. - Symptoms are unchanged. Historical: - Allergies: no known allergies; - Home Meds: 1. levothyroxine 112 mcg Oral tab 1 tab once daily (Last dose: 05/25/2016 08:00) 2. omeprazole 40 mg Oral cpDR 1 cap once daily (Last dose: 05/27/2016 20:00) 3. BuSpar Oral 10 mg daily (Last dose: 05/28/2016 08:00) 4. atenolol 25 mg Oral tab 1 tab once daily (Last dose: 05/28/2016 08:00) 5. prednisone 10 mg oral tab once daily (Last dose: 05/28/2016 13:00) 6. avalox 400mg daily (Last dose: 05/28/2016 12:45) 7. Tylenol 325 mg Oral tab 1000 mg every 6 hours (Last dose: 05/27/2016 22:00) - PMHx: graves disease; Emphysema; Anxiety; colon polyps; - PSHx: Hysterectomy; Cholecystectomy; Appendectomy; colectomy; - Social history: Smoking status: Patient uses tobacco products, current every day smoker. Patient/guardian denies using alcohol, street drugs, No barriers to communication noted, The patient speaks fluent [place], Speaks appropriately for age. - Family history: Not pertinent. - : The pt / caregiver states he / she is not on anticoagulants. Home medication list is obtained from the patient. - Exposure Risk Screening:: None identified. SALVAGER: 05/28 19:38 LMP N/A - Hysterectomy ttb Vital Signs: 19:30 BP 131 / 104; Pulse 126; Resp 20; Temp 96.7(O); Pulse Ox 95% on R/A; Weight 49.9 kg / lr2 110.01 lbs (R); Height 5 ft. 4 in. (162.56 cm) (R); Pain 0/10; 21:59 Pulse 108; Resp 20; Pulse Ox 91% on R/A; rs3 22:11 Pulse 109; Pulse Ox 88% on R/A; mf4 23:16 BP 130 / 82; Pulse 120; Resp 20; Temp 97.8(O); Pulse Ox 89% on R/A; Pain 0/10; kc3 19:30 Body Mass Index 18.88 (49.90 kg, 162.56 cm) lr2 MDM: 20:13 IV Saline Lock ordered. mo1 20:13 Solu-MEDROL 125 mg IVP once ordered. mo1 20:13 Albuterol-Ipratropium 3 ml Inhalation once ordered. mo1 20:13 Albuterol 5 mg Nebulizer once ordered. mo1 20:13 Pulse ox continuous ordered. mo1 20:15 Chest, 2 View (pa\E\lat) Ordered. EDMS 20:15 CBC with Diff Ordered. EDMS 20:15 BMP Ordered. EDMS 20:15 -Influenza A&B Rapid Antigen - Nose Ordered. EDMS 21:18 Financial registration complete. zo 21:23 CBC with Diff Reviewed. mo1 21:23 BMP Reviewed. mo1 21:23 -Influenza A&B Rapid Antigen - Nose Reviewed. mo1 21:31 Albuterol 2.5 mg Nebulizer once ordered. mo1 21:31 Tessalon 200 mg PO once ordered. mo1 22:09 [facility] Payment Agreement was scanned into [employer] and attached to record. zo 22:18 BED REQUEST+ADM ordered. EDMS 22:21 Admission / Observation Status ordered. EDMS 22:21 COPD DIET ordered. EDMS 22:22 CBC WITH DIFFERENTIAL Ordered. EDMS 22:22 BASIC METABOLIC PROFILE Ordered. EDMS 22:22 THYROID STIMULATING HORMONE Ordered. EDMS 22:22 CARDIAC RISK PROFILE Ordered. EDMS 22:22 MAGNESIUM LEVEL Ordered. EDMS 22:22 C REACTIVE PROTEIN QUANTITATIV Ordered. EDMS 22:22 ERYTHROCYTE SEDIMENTATION RATE Ordered. EDMS 22:22 CARDIAC MARKER PANEL Ordered. EDMS 22:23 CARDIAC MARKER PANEL Ordered. EDMS 22:23 SPUTUM CULTURE AND GRAM STAIN Ordered. EDMS 22:23 RESPIRATORY PANEL Ordered. EDMS 22:23 MRSA SCREEN Ordered. EDMS 22:24 PHYSICAL THERAPY EVAL & TREAT ordered. EDMS 22:25 ELECTROCARDIOGRAM ADULT ordered. EDMS 22:28 CARDIAC MARKER PANEL Ordered. EDMS 05/29 10:33 T-Sheet-- Draft Copy was scanned into [employer] and attached to record. gb Administered Medications: 05/28 20:23 Drug: Albuterol-Ipratropium 3 ml [ipratropium-albuterol 0.5 mg-3 mg(2.5 mg base)/3 mL jc3 nebulization soln (3 mL)] Route: Inhalation; 20:23 Drug: Albuterol 5 mg [albuterol sulfate 2.5 mg/0.5 mL solution for nebulization (1 mL)] jc3 Route: Nebulizer; 20:43 Drug: Solu-MEDROL 125 mg [Solu-Medrol 500 mg intravenous solution (125 mg)] Route: IVP; rs3 Site: left antecubital; 21:34 Drug: Tessalon 200 mg Route: PO; mf4 21:51 Drug: Albuterol 2.5 mg [albuterol sulfate 2.5 mg/0.5 mL solution for nebulization (0.5 jc3 mL)] Route: Nebulizer; Signatures: Dispatcher [employer] EDMS Libby Greco, Reg Reg gb Cristine Lazo Teresa, STEPHANIE RN ttb Chantell Steinberg, NAFISA AGRICULTURAL EXTENSION OFFICER tmm1 Otto Hartman PA PA mo1 Sandra Villela,STEPHANIE RN olivier3 Jama Parra jc3 Maricruz Odonnell RN rs3 Nate Jewell LPN mf4 The chart was reviewed and I authenticate all verbal orders and agree with the evaluation and treatment provided.Corrections: (The following items were deleted from the chart) 22: CARDIAC MARKER PANEL ordered. EDMS EDMS Attachments: 22:09 [facility] Payment Agreement zo 05/29 10:33 T-Sheet-- Draft Copy gb Chart Complete MTDD
== END 2016-05-30 12:15 | disposition home or self-care (01) | DRG 140 ==
LOC: M ED 19:28 → M ED INP 22:16 → EEVIPCON 22:16 → M PED 23:30
PROVIDERS: ADMIT General Practice; ATTEND Hospitalist
DX: J44.1 Chronic obstructive pulmonary disease with (acute) exacerbation (principal); I10 Essential (primary) hypertension; B97.29 Other coronavirus as the cause of diseases classified elsewhere; K21.9 Gastro-esophageal reflux disease without esophagitis; F17.210 Nicotine dependence, cigarettes, uncomplicated; Z79.899 Other long term (current) drug therapy; Z79.52 Long term (current) use of systemic steroids; Z80.1 Family history of malignant neoplasm of trachea, bronchus and lung; Z80.8 Family history of malignant neoplasm of other organs or systems; Z80.0 Family history of malignant neoplasm of digestive organs

== ENCOUNTER → 2016-06-05 | Outpatient (REF) | payer BC ==
[~2016-06-05] MED LIST: ALBU17IN INH; ATEN25TA PO; BUSP10TA PO; MOXI1TAB PO; OMEP40CA2 PO; PRED10PA2 PO; PRED10TA PO; SYMB80INH INH; SYNT112T2 PO; TYLE500T78 PO
== END ==
LOC: M LAB REF 16:43
PROVIDERS: ATTEND Nurse Practitioner Family
DX: K12.1 Other forms of stomatitis (principal)

== ENCOUNTER → 2016-07-25 | Outpatient (CLI) | payer BC ==
[2016-07-25 11:14] LABS: FREE T4 1.57 NG/DL (0.76-1.46)
== END ==
LOC: M LAB 10:08
PROVIDERS: ATTEND Physician Assistant Medical
DX: E89.0 Postprocedural hypothyroidism (principal)

== ENCOUNTER → 2016-09-17 | Outpatient (REF) | payer BC | LOC: M LAB REF 19:58 | PROVIDERS: ATTEND Physician Assistant | DX: J02.9 Acute pharyngitis, unspecified (principal) ==

== ENCOUNTER → 2016-11-23 | Outpatient (CLI) | payer BC ==
[~2016-11-23] MED LIST changes: -PRED10TA PO; +PRED10TA2 PO
[2016-11-23 09:30] LABS: FREE T4 1.47 NG/DL (0.76-1.46)
== END ==
LOC: M LAB 07:44
PROVIDERS: ATTEND Internal Medicine Endocrinology, Diabetes & Metabolism
DX: E89.0 Postprocedural hypothyroidism (principal)

== ENCOUNTER → 2017-04-26 | Outpatient (CLI) | payer BC ==
[2017-04-26 14:28] LABS: FREE T4 1.49 NG/DL (0.76-1.46)
== END ==
LOC: M LAB 12:28
DX: E89.0 Postprocedural hypothyroidism (principal)
CPT/HCPCS: 84443

== ENCOUNTER → 2017-11-12 | Outpatient (CLI) | payer BC | LOC: M LAB 13:22 | DX: E89.0 Postprocedural hypothyroidism (principal) | CPT/HCPCS: 84443 ==

== ENCOUNTER 2017-11-27 09:42 | Day surgery (SDC) | payer BC ==
[~2017-11-27 09:42] MED LIST changes: -ALBU17IN INH; -ATEN25TA PO; -BUSP10TA PO; +LIDOCAINE 2% INJ 100 MG/5 ML SDV (FOR ANES.) As Ordered; -MOXI1TAB PO; +NS 1,000 ML IV; -OMEP40CA2 PO; -PRED10PA2 PO; -PRED10TA2 PO; +PROPOFOL 200 MG/20 ML VIAL As Ordered; -SYMB80INH INH; -SYNT112T2 PO; -TYLE500T78 PO
[2017-11-27] MEDS ORDERED: PROPOFOL 200 MG/20 ML VIAL As Ordered (10:51)
[2017-11-27] MEDS ORDERED: LIQUID POLIBAR PLUS 105% w/v 1900ML BTL As Ordered (13:19)
== END 2017-11-27 11:53 | disposition home or self-care (01) ==
LOC: M OPP 09:42
DX: Z12.11 Encounter for screening for malignant neoplasm of colon (principal); Z86.010 Personal history of colon polyps; Z80.0 Family history of malignant neoplasm of digestive organs; K31.7 Polyp of stomach and duodenum; E03.9 Hypothyroidism, unspecified; K21.9 Gastro-esophageal reflux disease without esophagitis; R12 Heartburn; F41.9 Anxiety disorder, unspecified; J44.9 Chronic obstructive pulmonary disease, unspecified; Z92.21 Personal history of antineoplastic chemotherapy; Z92.3 Personal history of irradiation; Z85.42 Personal history of malignant neoplasm of other parts of uterus; F17.210 Nicotine dependence, cigarettes, uncomplicated; Z79.899 Other long term (current) drug therapy
CPT/HCPCS: 45378

== ENCOUNTER → 2018-05-07 | Outpatient (CLI) | payer BC ==
[~2018-05-07] MED LIST changes: +ALBU17IN INH; +ANOR1AER IN; +ATEN25TA PO; +BUSP10TA PO; -LIDOCAINE 2% INJ 100 MG/5 ML SDV (FOR ANES.) As Ordered; +MOXI1TAB PO; -NS 1,000 ML IV; +OMEP40CA2 PO; +PRED10PA2 PO; +PRED10TA2 PO; -PROPOFOL 200 MG/20 ML VIAL As Ordered; +SYMB80INH INH; +SYNT112T2 PO; +TYLE500T78 PO
[2018-05-07 13:02] LABS: FREE T4 1.84 NG/DL (0.76-1.46); THYROID STIMULATING HORMONE 0.804 uIU/ML (0.358-3.740)
== END ==
LOC: M LAB 11:32
PROVIDERS: ATTEND Nurse Practitioner Family
DX: E89.0 Postprocedural hypothyroidism (principal)

== ENCOUNTER → 2018-06-21 | Outpatient (CLI) | payer BC ==
[2018-06-21 17:17] LABS: BASO # 0.1 10^3/uL (0.0-0.2); BASO % 0.8 % (0.0-1.0); EOS # 0.3 10^3/uL (0.0-0.50); EOS % 5.7 % (0.0-3.0); HEMATOCRIT 46.3 % (36.0-47.0); HEMOGLOBIN 15.1 g/dl (12.0-15.5); LYMPH # 1.2 10^3/uL (1.5-4.5); LYMPH % 19.7 % (24.0-44.0); MEAN CORPUSCULAR HEMOGLOBIN 31.9 pg (27.0-33.0); MEAN CORPUSCULAR HGB CONC 32.6 g/dl (32.0-36.5); MEAN CORPUSCULAR VOLUME 97.9 fl (80.0-96.0); MONO # 0.5 10^3/uL (0.0-0.8); MONO % 8.4 % (0.0-5.0); NEUTROPHILS # 3.9 10^3/uL (1.8-7.7); NEUTROPHILS % 65.2 % (36.0-66.0); PLATELET COUNT, AUTOMATED 283 10^3/uL (150-450); RED BLOOD COUNT 4.73 10^6/uL (4.00-5.40); WHITE BLOOD COUNT 5.9 10^3/uL (4.0-10.0)
[2018-06-21 17:33] LABS: ALBUMIN 3.9 GM/DL (3.2-5.2); ALT/SGPT 17 U/L (12-78); BILIRUBIN,TOTAL 0.3 MG/DL (0.2-1.0); BLOOD UREA NITROGEN 7 MG/DL (7-18); CALCIUM LEVEL 9.1 MG/DL (8.5-10.1); CARBON DIOXIDE LEVEL 27 MEQ/L (21-32); CHLORIDE LEVEL 108 MEQ/L (98-107); CREATININE FOR GFR 0.68 MG/DL (0.55-1.30); FREE T4 1.84 NG/DL (0.76-1.46); GLOMERULAR FILTRATION RATE > 60.0 (>51); GLUCOSE, FASTING 89 MG/DL (70-100); POTASSIUM SERUM 4.1 MEQ/L (3.5-5.1); SODIUM LEVEL 142 MEQ/L (136-145); THYROID STIMULATING HORMONE 0.372 uIU/ML (0.358-3.740); TOTAL PROTEIN 7.1 GM/DL (6.4-8.2); VITAMIN B12 LEVEL 321 PG/ML
[2018-06-21 17:57] LABS: ERYTHROCYTE SEDIMENTATION RATE 10 mm/hr (0-30)
== END ==
LOC: M WUC 14:12
PROVIDERS: ATTEND Physician Assistant
DX: R03.0 Elevated blood-pressure reading, without diagnosis of hypertension (principal)

== ENCOUNTER → 2018-07-09 | Outpatient (CLI) | payer BC ==
[2018-07-09 13:28] LABS: THYROID STIMULATING HORMONE 0.354 uIU/ML (0.358-3.740)
== END ==
LOC: M LAB 12:13
PROVIDERS: ATTEND Nurse Practitioner Family
DX: E89.0 Postprocedural hypothyroidism (principal)

== ENCOUNTER → 2018-09-16 | Outpatient (CLI) | payer BC ==
[2018-09-16 14:20] LABS: FREE T4 1.74 NG/DL (0.76-1.46); THYROID STIMULATING HORMONE 1.01 uIU/ML (0.358-3.740)
== END ==
LOC: M LAB 12:35
PROVIDERS: ATTEND Nurse Practitioner Family
DX: E89.0 Postprocedural hypothyroidism (principal)

== ENCOUNTER → 2018-12-20 | Outpatient (CLI) | payer BC ==
[2018-12-20 13:33] LABS: FREE T4 1.33 NG/DL (0.76-1.46); THYROID STIMULATING HORMONE 6.72 uIU/ML (0.358-3.740)
== END ==
LOC: M LAB 12:09
PROVIDERS: ATTEND Nurse Practitioner Family
DX: E89.0 Postprocedural hypothyroidism (principal)

== ENCOUNTER → 2019-04-14 | Outpatient (REF) | payer BC ==
[~2019-04-14] MED LIST changes: -OMEP40CA2 PO; +OMEP40CA97 PO
[2019-04-14 12:20] LABS: FREE T4 1.46 NG/DL (0.76-1.46); THYROID STIMULATING HORMONE 11.1 uIU/ML (0.358-3.740)
== END ==
LOC: M LABDRAW1 11:30
PROVIDERS: ATTEND Nurse Practitioner Family
DX: E89.0 Postprocedural hypothyroidism (principal)

== ENCOUNTER → 2019-08-08 | Outpatient (CLI) | payer BC ==
[2019-08-08 16:10] LABS: FREE T4 1.59 NG/DL (0.76-1.46); THYROID STIMULATING HORMONE 4.24 uIU/ML (0.358-3.740)
== END ==
LOC: M LAB 15:12
PROVIDERS: ATTEND Internal Medicine Endocrinology, Diabetes & Metabolism
DX: E89.0 Postprocedural hypothyroidism (principal)

== ENCOUNTER → 2019-11-11 | Outpatient (CLI) | payer BC | LOC: M LABSMTC 14:00 | PROVIDERS: ATTEND Pediatrics | DX: Z11.59 Encounter for screening for other viral diseases (principal) ==

== ENCOUNTER → 2019-12-15 | Outpatient (CLI) | payer BC ==
[2019-12-15 12:12] LABS: FREE T4 1.75 NG/DL (0.76-1.46); THYROID STIMULATING HORMONE 7.47 uIU/ML (0.358-3.740)
== END ==
LOC: M PLALAB 09:03
PROVIDERS: ATTEND Nurse Practitioner Family
DX: E89.0 Postprocedural hypothyroidism (principal)

== ENCOUNTER → 2020-02-04 | Outpatient (CLI) | payer BC | LOC: M LABSMTC 10:58 | PROVIDERS: ATTEND Surgery | DX: Z20.828 Contact with and (suspected) exposure to other viral communicable diseases (principal) ==

== ENCOUNTER 2020-04-07 12:19 | Emergency (ER) | payer BC ==
[~2020-04-07] VITALS: Ht 160 cm; Wt 63.7 kg
[2020-04-07] MEDS ORDERED: KCL 10MEQ/100ML SWI (KRUN) 10 MEQ in IV 1 EA IV ONE ×2 (13:00→16:15)
--- NOTE | 2020-04-07 13:05 | REP ---
INDICATION: CHEST PAIN. COMPARISON: CT 07/06/2015. TECHNIQUE: SINGLE PORTABLE AP VIEW OF THE CHEST WAS PERFORMED. FINDINGS: There are emphysematous changes and mild bibasilar interstitial fibrotic changes. There is no acute infiltrate. The heart is not enlarged. There is calcification of the thoracic aorta. The mediastinal silhouette is otherwise unremarkable. IMPRESSION: NO ACUTE PULMONARY DISEASE. <Electronically signed by Tadeo Barclay > 04/07/20 [id number]
[2020-04-07] MEDS ORDERED: POTASSIUM CHLORIDE 10 MEQ SR TABLET PO ONE ×2 (13:15→18:15)
[2020-04-07 13:35] LABS: BASO % 0.6 % (0.0-1.0); EOS # 0.1 10^3/uL (0.0-0.5); EOS % 1.7 % (0.0-3.0); HEMATOCRIT 38.3 % (36.0-47.0); LYMPH # 1.5 10^3/uL (1.5-5.0); LYMPH % 23.4 % (24.0-44.0); MEAN CORPUSCULAR HEMOGLOBIN 30.6 pg (27.0-33.0); MEAN CORPUSCULAR HGB CONC 31.3 g/dl (32.0-36.5); MEAN CORPUSCULAR VOLUME 97.7 fl (80.0-96.0); MONO # 0.6 10^3/uL (0.0-0.8); MONO % 9.2 % (0.0-5.0); NEUTROPHILS # 4.1 10^3/uL (1.5-8.5); NEUTROPHILS % 64.6 % (36.0-66.0); PLATELET COUNT, AUTOMATED 245 10^3/uL (150-450); RED BLOOD COUNT 3.92 10^6/uL (4.00-5.40); WHITE BLOOD COUNT 6.4 10^3/uL (4.0-10.0)
[2020-04-07 14:01] LABS: BLOOD UREA NITROGEN 2 MG/DL (7-18); CARBON DIOXIDE LEVEL 36 MEQ/L (21-32); CHLORIDE LEVEL 103 MEQ/L (98-107); CK-MB VALUE MASS < 1.0 NG/ML (<3.6); CPK CREATINE PHOSPHOKINASE 118 U/L (26-192); CREATININE FOR GFR 0.69 MG/DL (0.55-1.30); GLOMERULAR FILTRATION RATE > 60.0 (>51); GLUCOSE, FASTING 86 MG/DL (70-100); MAGNESIUM LEVEL 1.5 MG/DL (1.8-2.4); MB/CK RELATIVE INDEX 0.85 (< OR =4); POTASSIUM SERUM 3.7 MEQ/L (3.5-5.1); SODIUM LEVEL 141 MEQ/L (136-145); TROPONIN I < 0.02 NG/ML (< 0.10)
[2020-04-07] MEDS ORDERED: NS 500 ML IV SCH (14:15)
[2020-04-07] MEDS ORDERED: LEVO100T5 PO (14:42)
[2020-04-07] MEDS ORDERED: NYST50SS PO (14:42)
[2020-04-07] MEDS ORDERED: ATEN25TA PO (14:42)
[2020-04-07] MEDS ORDERED: ANOR1AER INH (14:42)
[2020-04-07] MEDS ORDERED: ONDA-83 PO (14:42)
[2020-04-07 16:09] LABS: CK-MB VALUE MASS < 1.0 NG/ML (<3.6); CPK CREATINE PHOSPHOKINASE 46 U/L (26-192); MB/CK RELATIVE INDEX 2.17 (< OR =4); POTASSIUM SERUM 2.6 MEQ/L (3.5-5.1); TROPONIN I < 0.02 NG/ML (< 0.10)
[2020-04-07] MEDS ORDERED: MAG SULF 1GM/100ML (MAG RUN) 1 GM in IV 1 EA IV ONE (16:15)
[2020-04-07 17:31] VITALS: BP 125/76
[2020-04-07] MEDS ORDERED: MAGN400T2 PO (18:09)
[2020-04-07] MEDS ORDERED: POTA20TA6 PO (18:09)
--- NOTE | 2020-04-08 05:27 | ECGEPIP ---
[facility] - ED Test Date: 2020-04-07 Pat Name: MARILYN FLOYD Department: Room: - Gender: Female Electronic Publications Specialist: MARYANN : 1960 Requested By: CODY DEMARCO Order Number: [id number] Reading MD: Cody Daily Measurements Intervals [place] Rate: 60 P: 70 [place]: 157 QRS: 74 QRSD: 93 T: 63 QT: 413 QTc: 416 Interpretive Statements SINUS RHYTHM Nonspecific T wave abnormality Comparison tracing not on file Electronically Signed on 04-08-2020 5:27:01 EST by Cody Daily
--- NOTE | 2020-04-09 21:20 | ECGEPIP ---
[facility] - ED Test Date: 2020-04-07 Pat Name: MARILYN FLOYD Department: Room: - Gender: Female Cmo & President: MARYANN : 1960 Requested By: Tobias Penny Order Number: [id number] Reading MD: Tobias Cage Measurements Intervals [place] Rate: 58 P: 74 [place]: 162 QRS: 54 QRSD: 90 T: 65 QT: 411 QTc: 407 Interpretive Statements SINUS BRADYCARDIA INCOMPLETE RIGHT BUNDLE BRANCH BLOCK NO PRIORS FOR COMPARISON Electronically Signed on 04-09-2020 21:19:55 EST by Tobias Cage
== END 2020-04-07 18:28 | disposition home or self-care (01) ==
LOC: M ED 12:19 → MERGE 12:19 → M ED 18:28
DX: E83.42 Hypomagnesemia (principal); E87.6 Hypokalemia; C18.9 Malignant neoplasm of colon, unspecified; R00.1 Bradycardia, unspecified
CPT/HCPCS: 36415; 71045; 80048; 82550; 82553; 83735; 84132; 84484; 85025; 93005; 93041; 94760; 96365; 96366; 96368; 99285; J3475

== ENCOUNTER 2020-06-09 10:09 | Emergency (ER) | payer BC ==
[~2020-06-09] VITALS: Ht 160 cm; Wt 66.5 kg
[~2020-06-09 10:09] MED LIST changes: +ANOR1AER INH; +LEVO100T5 PO; +MAGN400T2 PO; +NYST50SS PO; +ONDA-83 PO; +POTA20TA6 PO
[2020-06-09] MEDS ORDERED: PROC10TA4 PO (11:41)
[2020-06-09] MEDS ORDERED: ATIV1TAB10 PO (11:41)
[2020-06-09 11:55] LABS: ALBUMIN 3.8 GM/DL (3.2-5.2); ALT/SGPT 23 U/L (12-78); BILIRUBIN,TOTAL 0.4 MG/DL (0.2-1.0); BLOOD UREA NITROGEN 4 MG/DL (7-18); CALCIUM LEVEL 9.8 MG/DL (8.5-10.1); CARBON DIOXIDE LEVEL 31 MEQ/L (21-32); CHLORIDE LEVEL 106 MEQ/L (98-107); CREATININE FOR GFR 0.75 MG/DL (0.55-1.30); GLOMERULAR FILTRATION RATE > 60.0 (>51); GLUCOSE, FASTING 87 MG/DL (70-100); MAGNESIUM LEVEL 1.5 MG/DL (1.8-2.4); POTASSIUM SERUM 3.8 MEQ/L (3.5-5.1); SODIUM LEVEL 142 MEQ/L (136-145)
[2020-06-09 12:04] LABS: BASO # 0.1 10^3/uL (0.0-0.2); BASO % 1.3 % (0.0-1.0); EOS # 0.1 10^3/uL (0.0-0.5); EOS % 1.3 % (0.0-3.0); HEMATOCRIT 38.8 % (36.0-47.0); HEMOGLOBIN 12.3 g/dl (12.0-15.5); LYMPH # 1.2 10^3/uL (1.5-5.0); LYMPH % 26.1 % (24.0-44.0); MEAN CORPUSCULAR HEMOGLOBIN 28.7 pg (27.0-33.0); MEAN CORPUSCULAR HGB CONC 31.7 g/dl (32.0-36.5); MEAN CORPUSCULAR VOLUME 90.4 fl (80.0-96.0); MONO # 0.6 10^3/uL (0.0-0.8); MONO % 12.9 % (2.0-8.0); NEUTROPHILS # 2.6 10^3/uL (1.5-8.5); NEUTROPHILS % 58.2 % (36.0-66.0); RED BLOOD COUNT 4.29 10^6/uL (4.00-5.40); WHITE BLOOD COUNT 4.5 10^3/uL (4.0-10.0)
[2020-06-09 12:31] LABS: PLATELET COUNT, AUTOMATED 94 10^3/uL (150-450)
[2020-06-09] MEDS ORDERED: MAG SULF 1GM/100ML (MAG RUN) 1 GM in IV 1 EA IV ONE (13:00)
[2020-06-09] MEDS ORDERED: ESSE250T PO (13:31)
[2020-06-09 14:17] VITALS: BP 152/90
== END 2020-06-09 14:18 | disposition home or self-care (01) ==
LOC: M ED 10:09
DX: E83.42 Hypomagnesemia (principal); R30.0 Dysuria; C18.9 Malignant neoplasm of colon, unspecified; Z79.899 Other long term (current) drug therapy
CPT/HCPCS: 80053; 81001; 83735; 85025; 85049; 85055; 87088; 87186; 96365; 99284; J3475

== ENCOUNTER 2020-06-30 15:53 | Emergency (ER) | payer BC ==
[~2020-06-30] VITALS: Ht 162.6 cm; Wt 66.6 kg
--- NOTE | 2020-06-30 20:29 | REPVR ---
PROCEDURE INFORMATION: Exam: US Duplex Right Lower Extremity Veins, Limited Exam date and time: 06/30/2020 6:00 PM Age: 59 years old Clinical indication: Pain; Leg, lower; Right; Additional info: Swelling/pain TECHNIQUE: Imaging protocol: Real-time Duplex ultrasound of the Right Lower Extremity with 2-D goss scale, color Doppler flow and spectral waveform analysis with image documentation. Limited exam was focused on the right lower extremity veins. COMPARISON: No relevant prior studies available. FINDINGS: Right deep veins: Unremarkable. The common femoral, femoral, proximal profunda femoral and popliteal veins are patent without thrombus. Normal Doppler waveforms. Normal compressibility and/or augmentation response. Right superficial veins: Unremarkable. Saphenofemoral junction is patent without thrombus. Soft tissues: Unremarkable. IMPRESSION: No evidence of deep vein thrombosis. Electronically signed by: Bryson Goodman On 06/30/2020 20:29:24 PM
[2020-06-30 20:53] VITALS: BP 159/96
== END 2020-06-30 20:59 | disposition home or self-care (01) ==
LOC: M ED 15:53
DX: R22.42 Localized swelling, mass and lump, left lower limb (principal); I10 Essential (primary) hypertension; J44.9 Chronic obstructive pulmonary disease, unspecified; C18.9 Malignant neoplasm of colon, unspecified; E05.00 Thyrotoxicosis with diffuse goiter without thyrotoxic crisis or storm; F41.9 Anxiety disorder, unspecified; Z79.899 Other long term (current) drug therapy

== ENCOUNTER → 2020-06-30 | Outpatient (REF) | payer BC ==
[~2020-06-30] MED LIST changes: +ATIV1TAB10 PO; +ESSE250T PO; +PROC10TA4 PO
== END ==
LOC: M LAB REF 19:54
PROVIDERS: ATTEND Physician Assistant
DX: N39.0 Urinary tract infection, site not specified (principal)

== ENCOUNTER → 2020-08-05 | Outpatient (CLI) | payer BC ==
[2020-08-05 10:51] LABS: BLOOD UREA NITROGEN 4 MG/DL (7-18); CALCIUM LEVEL 8.6 MG/DL (8.5-10.1); CARBON DIOXIDE LEVEL 29 MEQ/L (21-32); CHLORIDE LEVEL 103 MEQ/L (98-107); CREATININE FOR GFR 0.77 MG/DL (0.55-1.30); GLOMERULAR FILTRATION RATE > 60.0 (>51); GLUCOSE, FASTING 107 MG/DL (70-100); MAGNESIUM LEVEL 1.4 MG/DL (1.8-2.4); PHOSPHORUS LEVEL 1.9 MG/DL (2.5-4.9); SODIUM LEVEL 140 MEQ/L (136-145)
== END ==
LOC: M PLALAB 09:05
DX: C18.9 Malignant neoplasm of colon, unspecified (principal)

== ENCOUNTER → 2020-08-09 | Outpatient (CLI) | payer BC ==
[2020-08-09 12:44] LABS: BLOOD UREA NITROGEN 3 MG/DL (7-18); CALCIUM LEVEL 8.8 MG/DL (8.5-10.1); CARBON DIOXIDE LEVEL 26 MEQ/L (21-32); CHLORIDE LEVEL 106 MEQ/L (98-107); CREATININE FOR GFR 0.63 MG/DL (0.55-1.30); GLOMERULAR FILTRATION RATE > 60.0 (>51); GLUCOSE, FASTING 97 MG/DL (70-100); MAGNESIUM LEVEL 1.7 MG/DL (1.8-2.4); PHOSPHORUS LEVEL 3.1 MG/DL (2.5-4.9); POTASSIUM SERUM 3.6 MEQ/L (3.5-5.1); SODIUM LEVEL 140 MEQ/L (136-145)
== END ==
LOC: M PLALAB 09:53
PROVIDERS: ATTEND Internal Medicine Hematology & Oncology
DX: C18.9 Malignant neoplasm of colon, unspecified (principal)

== ENCOUNTER 2020-08-16 13:25 | Emergency (ER) | payer BC ==
[~2020-08-16] VITALS: Ht 160 cm; Wt 57.4 kg
[2020-08-16] MEDS ORDERED: POTA10CA32 (14:15)
[2020-08-16] MEDS ORDERED: DIPH2.5T14 (14:15)
[2020-08-16] MEDS ORDERED: NS 1,000 ML IV ONE (14:30)
[2020-08-16 14:39] LABS: BASO # 0.1 10^3/uL (0.0-0.2); BASO % 0.6 % (0.0-1.0); EOS % 0.1 % (0.0-3.0); HEMATOCRIT 41.7 % (36.0-47.0); HEMOGLOBIN 13.3 g/dl (12.0-15.5); LYMPH # 1.4 10^3/uL (1.5-5.0); LYMPH % 10.8 % (24.0-44.0); MEAN CORPUSCULAR HEMOGLOBIN 32.1 pg (27.0-33.0); MEAN CORPUSCULAR HGB CONC 31.9 g/dl (32.0-36.5); MEAN CORPUSCULAR VOLUME 100.7 fl (80.0-96.0); MONO # 1.3 10^3/uL (0.0-0.8); MONO % 10.2 % (2.0-8.0); NEUTROPHILS # 9.6 10^3/uL (1.5-8.5); NEUTROPHILS % 74.9 % (36.0-66.0); PLATELET COUNT, AUTOMATED 180 10^3/uL (150-450); RED BLOOD COUNT 4.14 10^6/uL (4.00-5.40); WHITE BLOOD COUNT 12.8 10^3/uL (4.0-10.0)
[2020-08-16] MEDS ORDERED: ISOVUE-370 76% 100ML VIAL As Ordered ONE (14:46)
[2020-08-16 15:17] LABS: ALBUMIN 3.1 GM/DL (3.2-5.2); ALT/SGPT 18 U/L (12-78); BILIRUBIN,DIRECT 0.3 MG/DL (0.0-0.2); BILIRUBIN,TOTAL 0.9 MG/DL (0.2-1.0); CK-MB VALUE MASS < 1.0 NG/ML (<3.6); CPK CREATINE PHOSPHOKINASE 39 U/L (26-192); LIPASE 48 U/L (73-393); MAGNESIUM LEVEL 2.2 MG/DL (1.8-2.4); MB/CK RELATIVE INDEX 2.56 (< OR =4); TOTAL PROTEIN 6.2 GM/DL (6.4-8.2); TROPONIN I < 0.02 NG/ML (< 0.10)
--- NOTE | 2020-08-16 17:15 | REP ---
INDICATION: abdominal pain/cramping; diarrhea. COMPARISON: 12/18/2014 TECHNIQUE: Standard helical technique after the intravenous administration of 100 cc Isovue 370. FINDINGS: There are chronic changes seen in the lung bases status quo. Parenchymal bulla and pleural blebs are again noted. There is no significant change in appearance of the liver. There are no pre contrast-enhanced images to review. There are no enhancing hepatic lesions. Surgical clips are again seen in the gallbladder fossa from previous cholecystectomy. There is no significant change in appearance of the spleen, pancreas, adrenal glands, or kidneys. There is no significant change in appearance of the abdominal aorta or para-regions. There are multiple mildly dilated gas and fluid-filled small bowel loops some of which have thickened enhancing kent. There is a small amount of free fluid in the abdomen. There is no evidence of free air. Note is again made of prior right hemicolectomy. There is no significant change in appearance of the imaged osseous structures. IMPRESSION: 1. There is evidence of an ileus with multiple edematous inflamed small bowel loops the etiology of which is uncertain. There is no evidence of intestinal obstruction. 2. Other findings as described above. <Electronically signed by Chandrakant Jose > 08/16/20 [id number]
[2020-08-16 17:45] VITALS: BP 140/82
--- NOTE | 2020-08-17 05:56 | ECGEPIP ---
[facility] - ED Test Date: 2020-08-16 Pat Name: MARILYN FLOYD Department: Room: - Gender: Female Feather Baler: : 1960 Requested By: JERAMY DEMARCO Order Number: [id number] Reading MD: Tobias Cage Measurements Intervals [place] Rate: 88 P: 80 [place]: 152 QRS: 40 QRSD: 86 T: 57 QT: 344 QTc: 416 Interpretive Statements Normal sinus rhythm INCOMPLETE RIGHT BUNDLE BRANCH BLOCK T wave abnormality, consider anterior ischemia, new compared to 11/12/15 Electronically Signed on 08-17-2020 5:56:01 EDT by Tobias Cage
== END 2020-08-16 18:06 | disposition home or self-care (01) ==
LOC: M ED 13:25
DX: K52.9 Noninfective gastroenteritis and colitis, unspecified (principal); J44.9 Chronic obstructive pulmonary disease, unspecified; C18.9 Malignant neoplasm of colon, unspecified; Z79.51 Long term (current) use of inhaled steroids; Z79.899 Other long term (current) drug therapy; Z90.49 Acquired absence of other specified parts of digestive tract
CPT/HCPCS: 74177; 80047; 80076; 82550; 82553; 83690; 83735; 84484; 85025; 93005; 93041; 96360; 99284; Q9967

== ENCOUNTER → 2020-09-11 | Outpatient (REF) | payer BC ==
[~2020-09-11] MED LIST changes: +DIPH2.5T14; +POTA10CA32
== END ==
LOC: M LAB REF 17:45
PROVIDERS: ATTEND Nurse Practitioner Family
DX: N39.0 Urinary tract infection, site not specified (principal)

== ENCOUNTER → 2020-09-17 | Outpatient (CLI) | payer BC ==
[~2020-09-17] MED LIST changes: +OMEP40CA4 PO; -OMEP40CA97 PO
[2020-09-17 14:07] LABS: BLOOD UREA NITROGEN 2 MG/DL (7-18); CARBON DIOXIDE LEVEL 30 MEQ/L (21-32); CHLORIDE LEVEL 107 MEQ/L (98-107); CREATININE FOR GFR 0.51 MG/DL (0.55-1.30); GLOMERULAR FILTRATION RATE > 60.0 (>51); GLUCOSE, FASTING 96 MG/DL (70-100); POTASSIUM SERUM 3.4 MEQ/L (3.5-5.1); SODIUM LEVEL 143 MEQ/L (136-145)
== END ==
LOC: M LAB 13:03
PROVIDERS: ATTEND Physician Assistant
DX: C18.9 Malignant neoplasm of colon, unspecified (principal)

== ENCOUNTER → 2020-09-24 | Outpatient (CLI) | payer BC ==
[2020-09-24 12:22] LABS: BLOOD UREA NITROGEN 4 MG/DL (7-18); CALCIUM LEVEL 9.3 MG/DL (8.5-10.1); CARBON DIOXIDE LEVEL 33 MEQ/L (21-32); CHLORIDE LEVEL 104 MEQ/L (98-107); CREATININE FOR GFR 0.52 MG/DL (0.55-1.30); GLOMERULAR FILTRATION RATE > 60.0 (>51); GLUCOSE, FASTING 93 MG/DL (70-100); MAGNESIUM LEVEL 1.9 MG/DL (1.8-2.4); PHOSPHORUS LEVEL 3.6 MG/DL (2.5-4.9); POTASSIUM SERUM 3.6 MEQ/L (3.5-5.1); SODIUM LEVEL 142 MEQ/L (136-145)
[2020-09-24 12:37] LABS: BASO # 0.1 10^3/uL (0.0-0.2); BASO % 1.4 % (0.0-1.0); EOS % 0.6 % (0.0-3.0); HEMATOCRIT 41.1 % (36.0-47.0); HEMOGLOBIN 12.7 g/dl (12.0-15.5); LYMPH % 14.8 % (24.0-44.0); MEAN CORPUSCULAR HEMOGLOBIN 31.8 pg (27.0-33.0); MEAN CORPUSCULAR HGB CONC 30.9 g/dl (32.0-36.5); MEAN CORPUSCULAR VOLUME 102.8 fl (80.0-96.0); MONO # 1.2 10^3/uL (0.0-0.8); NEUTROPHILS # 4.5 10^3/uL (1.5-8.5); NEUTROPHILS % 64.8 % (36.0-66.0); PLATELET COUNT, AUTOMATED 157 10^3/uL (150-450)
== END ==
LOC: M LAB 11:19
PROVIDERS: ATTEND Nurse Practitioner
DX: C18.9 Malignant neoplasm of colon, unspecified (principal)

== ENCOUNTER → 2020-10-05 | Outpatient (REF) | payer BC ==
[2020-10-05 17:29] LABS: BLOOD UREA NITROGEN 5 MG/DL (7-18); CALCIUM LEVEL 9.2 MG/DL (8.5-10.1); CARBON DIOXIDE LEVEL 31 MEQ/L (21-32); CHLORIDE LEVEL 103 MEQ/L (98-107); CREATININE FOR GFR 0.53 MG/DL (0.55-1.30); GLOMERULAR FILTRATION RATE > 60.0 (>51); GLUCOSE, FASTING 83 MG/DL (70-100); POTASSIUM SERUM 3.7 MEQ/L (3.5-5.1); SODIUM LEVEL 140 MEQ/L (136-145)
== END ==
LOC: M WUC 15:55
PROVIDERS: ATTEND Physician Assistant
DX: C18.9 Malignant neoplasm of colon, unspecified (principal)

== ENCOUNTER → 2020-10-18 | Outpatient (CLI) | payer BC ==
[2020-10-18 12:38] LABS: BLOOD UREA NITROGEN 4 MG/DL (7-18); CALCIUM LEVEL 8.4 MG/DL (8.5-10.1); CARBON DIOXIDE LEVEL 34 MEQ/L (21-32); CHLORIDE LEVEL 99 MEQ/L (98-107); GLOMERULAR FILTRATION RATE > 60.0 (>51); GLUCOSE, FASTING 106 MG/DL (70-100); SODIUM LEVEL 140 MEQ/L (136-145)
== END ==
LOC: M WUC 10:49
PROVIDERS: ATTEND Physician Assistant
DX: C18.9 Malignant neoplasm of colon, unspecified (principal)

== ENCOUNTER → 2020-11-01 | Outpatient (CLI) | payer BC ==
[2020-11-01 13:06] LABS: BLOOD UREA NITROGEN 7 MG/DL (7-18); CALCIUM LEVEL 9.2 MG/DL (8.5-10.1); CARBON DIOXIDE LEVEL 29 MEQ/L (21-32); CHLORIDE LEVEL 98 MEQ/L (98-107); CREATININE FOR GFR 0.54 MG/DL (0.55-1.30); GLOMERULAR FILTRATION RATE > 60.0 (>51); GLUCOSE, FASTING 80 MG/DL (70-100); POTASSIUM SERUM 3.3 MEQ/L (3.5-5.1); SODIUM LEVEL 138 MEQ/L (136-145)
[2020-11-01 13:17] LABS: FREE T4 1.66 NG/DL (0.76-1.46); THYROID STIMULATING HORMONE 3.05 uIU/ML (0.358-3.740)
== END ==
LOC: M WUC 09:56
PROVIDERS: ATTEND Nurse Practitioner Family
DX: E89.0 Postprocedural hypothyroidism (principal)

== ENCOUNTER → 2020-11-11 | Outpatient (CLI) | payer BC ==
[2020-11-11 11:45] LABS: BLOOD UREA NITROGEN 4 MG/DL (7-18); CALCIUM LEVEL 8.7 MG/DL (8.5-10.1); CARBON DIOXIDE LEVEL 33 MEQ/L (21-32); CHLORIDE LEVEL 106 MEQ/L (98-107); CREATININE FOR GFR 0.56 MG/DL (0.55-1.30); GLOMERULAR FILTRATION RATE > 60.0 (>51); GLUCOSE, FASTING 86 MG/DL (70-100); POTASSIUM SERUM 3.3 MEQ/L (3.5-5.1); SODIUM LEVEL 144 MEQ/L (136-145)
== END ==
LOC: M WUC 08:30
PROVIDERS: ATTEND Nurse Practitioner
DX: C18.9 Malignant neoplasm of colon, unspecified (principal); Z15.09 Genetic susceptibility to other malignant neoplasm

== ENCOUNTER → 2020-11-22 | Outpatient (CLI) | payer BC ==
[2020-11-22 20:12] LABS: HEMATOCRIT 37.4 % (36.0-47.0); HEMOGLOBIN 11.9 g/dl (12.0-15.5); MEAN CORPUSCULAR HEMOGLOBIN 33.4 pg (27.0-33.0); MEAN CORPUSCULAR HGB CONC 31.8 g/dl (32.0-36.5); MEAN CORPUSCULAR VOLUME 105.1 fl (80.0-96.0); RED BLOOD COUNT 3.56 10^6/uL (4.00-5.40)
[2020-11-22 20:53] LABS: ALBUMIN 2.5 GM/DL (3.2-5.2); ALT/SGPT 18 U/L (12-78); BILIRUBIN,TOTAL 0.8 MG/DL (0.2-1.0); BLOOD UREA NITROGEN 4 MG/DL (7-18); CALCIUM LEVEL 7.9 MG/DL (8.5-10.1); CARBON DIOXIDE LEVEL 34 MEQ/L (21-32); CHLORIDE LEVEL 103 MEQ/L (98-107); CREATININE FOR GFR 0.47 MG/DL (0.55-1.30); GLOMERULAR FILTRATION RATE > 60.0 (>51); GLUCOSE, FASTING 96 MG/DL (70-100); PLATELET COUNT, AUTOMATED 82 10^3/uL (150-450); POTASSIUM SERUM 2.9 MEQ/L (3.5-5.1); SODIUM LEVEL 140 MEQ/L (136-145); TOTAL PROTEIN 5.2 GM/DL (6.4-8.2); WHITE BLOOD COUNT 61.9 10^3/uL (4.0-10.0)
[2020-11-22 21:10] LABS: BASOPHILS 1 % (0-1); LYMPHOCYTES 2 % (16-44); METAMYELOCYTES 1 % (0-0); MONOCYTES 2 % (0-5); NEUTROPHILS 92 % (28-66); PLATELET ESTIMATE DECREASED (NORMAL)
[2020-11-22 21:11] LABS: ANISOCYTOSIS 1+
== END ==
LOC: M WUC 15:38
DX: Z15.09 Genetic susceptibility to other malignant neoplasm (principal); C18.9 Malignant neoplasm of colon, unspecified

== ENCOUNTER 2020-11-30 13:25 | Emergency (ER) | payer BC ==
[~2020-11-30] VITALS: Ht 160 cm; Wt 48.2 kg
[2020-11-30] MEDS ORDERED: NS 1,000 ML IV ONE (17:40)
[2020-11-30] MEDS ORDERED: ONDANSETRON 4MG/2ML VIAL IV ONE (17:40)
[2020-11-30] MEDS ORDERED: ISOVUE-370 76% 100ML VIAL As Ordered ONE (18:32)
[2020-11-30] MEDS ORDERED: POTASSIUM CHLORIDE 10% LIQ 20 MEQ/15 ML UDC PO ONE (18:55)
[2020-11-30 19:05] LABS: BASO # 0.1 10^3/uL (0.0-0.2); BASO % 0.5 % (0.0-1.0); EOS % 0.2 % (0.0-3.0); HEMATOCRIT 42.7 % (36.0-47.0); HEMOGLOBIN 13.8 g/dl (12.0-15.5); LYMPH # 1.1 10^3/uL (1.5-5.0); LYMPH % 7.3 % (24.0-44.0); MEAN CORPUSCULAR HEMOGLOBIN 32.3 pg (27.0-33.0); MEAN CORPUSCULAR HGB CONC 32.3 g/dl (32.0-36.5); MONO # 1.3 10^3/uL (0.0-0.8); MONO % 8.2 % (2.0-8.0); NEUTROPHILS # 12.2 10^3/uL (1.5-8.5); NEUTROPHILS % 80.6 % (36.0-66.0); PLATELET COUNT, AUTOMATED 117 10^3/uL (150-450); RED BLOOD COUNT 4.27 10^6/uL (4.00-5.40); WHITE BLOOD COUNT 15.2 10^3/uL (4.0-10.0)
[2020-11-30 19:16] LABS: ALBUMIN 2.9 GM/DL (3.2-5.2); ALT/SGPT 22 U/L (12-78); BILIRUBIN,DIRECT 0.5 MG/DL (0.0-0.2); BILIRUBIN,TOTAL 1.2 MG/DL (0.2-1.0); CK-MB VALUE MASS < 1.0 NG/ML (<3.6); CPK CREATINE PHOSPHOKINASE 18 U/L (26-192); LIPASE 47 U/L (73-393); MB/CK RELATIVE INDEX 5.56 (< OR =4); TOTAL PROTEIN 6.3 GM/DL (6.4-8.2); TROPONIN I < 0.02 NG/ML (< 0.10)
--- NOTE | 2020-11-30 20:26 | REPVR ---
PROCEDURE INFORMATION: Exam: CT Neck With Contrast Exam date and time: 11/30/2020 7:54 PM Age: 60 years old Clinical indication: Dysphagia / difficulty swallowing; Additional info: Difficulty swallowing/swelling right neck TECHNIQUE: Imaging protocol: Computed tomography images of the neck with contrast. Radiation optimization: All CT scans at this facility use at least one of these dose optimization techniques: automated exposure control; mA and/or kV adjustment per patient size (includes targeted exams where dose is matched to clinical indication); or iterative reconstruction. Contrast material: ISOVUE 370; Contrast volume: 75 ml; Contrast route: INTRAVENOUS (IV); COMPARISON: NM-Thyroid IMG w/uptake MULTI 09/07/2015 11:10 AM FINDINGS: Paranasal sinuses: Inflammatory changes demonstrated in the left maxillary sinus. Nasopharynx: Unremarkable. Oropharynx: Unremarkable. No significant tonsillar enlargement. Hypopharynx: Unremarkable. Larynx: Unremarkable. Normal epiglottis. Retropharyngeal space: Unremarkable. Submandibular/Parotid glands: Normal. Glands are normal in size. Thyroid: There is enlargement of the right lobe of the thyroid gland with poorly defined soft tissue margins associated with a peripherally enhancing nodule measuring 1.4 cm. Findings worrisome for an aggressive thyroid neoplasm. Correlation with thyroid ultrasound and additional imaging /tissue sampling may be necessary. There is indentation on the posterior margin of the midtrachea which appears to be secondary to soft tissue extending from the posteromedial margin of the right lobe of the thyroid gland. Findings worrisome for neoplasm. Lymph nodes: Unremarkable. No lymphadenopathy. Trachea: Visualized trachea is unremarkable. Lungs: Severe centrilobular and paraseptal emphysematous changes demonstrated in the upper lung zones. Bones/joints: The spine demonstrates mild degenerative changes. Vasculature: There is mild atherosclerosis in the thoracic aorta. Right internal jugular venous line demonstrated in the superior vena cava. Soft tissues: Unremarkable. No significant soft tissue swelling. IMPRESSION: 1. There is enlargement of the right lobe of the thyroid gland with poorly defined soft tissue margins associated with a peripherally enhancing nodule measuring 1.4 cm. Findings worrisome for an aggressive thyroid neoplasm. Correlation with thyroid ultrasound and additional imaging /tissue sampling may be necessary. 2. Severe centrilobular and paraseptal emphysematous changes demonstrated in the upper lung zones. 3. There is indentation on the posterior margin of the midtrachea which appears to be secondary to soft tissue extending from the posteromedial margin of the right lobe of the thyroid gland. Findings worrisome for neoplasm. COMMENTS: Consistent with the [employer]'s Incidental Findings Committee white paper (J Am Christian Radiol 2015): In patients aged 35 years and older with an incidental thyroid nodule equal to or greater than 1.[address], MRI or extrathyroidal US, further evaluation with dedicated thyroid US is recommended for patients with normal life expectancy and without comorbidities. For smaller nodules without suspicious features, no further evaluation or follow up is recommended. Electronically signed by: Bryson Goodman On 11/30/2020 20:25:37 PM
[2020-11-30] MEDS ORDERED: POTA20EL PO (21:16)
[2020-11-30] MEDS ORDERED: ONDA4TAB6 PO (21:16)
[2020-11-30 21:39] VITALS: BP 132/70
--- NOTE | 2020-12-01 07:32 | ED PDOC ---
Post-Departure Follow-Up jefry and dr paul faxed formal report of ct neck for fu Celia Sifuentes MD Dec 01, 2020 07:32
[2020-12-01] MEDS ORDERED: POTA1TAB14 PO (12:50)
[2020-12-01] MEDS ORDERED: LEVO50TA5 PO (12:50)
== END 2020-11-30 21:41 | disposition home or self-care (01) ==
LOC: M ED 13:25
DX: E07.9 Disorder of thyroid, unspecified (principal); J43.9 Emphysema, unspecified; E87.6 Hypokalemia; R13.10 Dysphagia, unspecified; I10 Essential (primary) hypertension; E05.00 Thyrotoxicosis with diffuse goiter without thyrotoxic crisis or storm; F41.9 Anxiety disorder, unspecified; F17.200 Nicotine dependence, unspecified, uncomplicated; Z79.890 Hormone replacement therapy; Z79.899 Other long term (current) drug therapy
CPT/HCPCS: 70491; 80047; 80076; 82550; 82553; 83690; 84484; 85025; 96361; 96374; 99284; J2405; Q9967

== ENCOUNTER → 2020-12-01 | Outpatient (CLI) | payer BC ==
[~2020-12-01] MED LIST changes: +LEVO50TA5 PO; +LIDOCAINE 1% MDV 20ML VIAL As Ordered ONE; +ONDA4TAB6 PO; +POTA1TAB14 PO; +POTA20EL PO
[2020-12-01 13:10] VITALS: BP 118/60
--- NOTE | 2020-12-07 15:37 | REP ---
INDICATION: COLON CA W/ RT THYROID TUMOR. COMPARISON: None. TECHNIQUE: The procedure was performed under the direct supervision of Dr. Barclay. The patient has a history of a 1.4 cm peripherally enhancing nodule in the right thyroid seen on a previous CT scan dated 11/30/2020. The risks and benefits of the procedure were explained to the patient and informed consent was obtained. The right thyroid nodule was localized using ultrasound guidance. The skin was prepped and draped in a sterile fashion. 4 mL of 1% lidocaine was used as a local anesthetic. Using ultrasound guidance 4 fine-needle aspirations were obtained using 25 gauge needles. The patient tolerated the procedure well and there were no immediate complications. After the appropriate amount to monitor convalescence the patient was discharged from the department. Estimated blood loss: Less than 1 mL. FINDINGS: None IMPRESSION: Ultrasound-guided right thyroid biopsy. <Electronically signed by Rocael Chi > 12/01/20 1526 <Electronically signed by Tadeo Barclay > 12/07/20 1538
== END ==
LOC: M IRPRO 12:12
PROVIDERS: ATTEND Otolaryngology
DX: D34 Benign neoplasm of thyroid gland (principal)

== ENCOUNTER → 2020-12-15 | Outpatient (CLI) | payer BC ==
[2020-12-15 15:10] VITALS: BP 121/70
--- NOTE | 2020-12-15 15:52 | REP ---
INDICATION: RT THYROID MASS. COMPARISON: None. TECHNIQUE: The procedure was performed under the direct supervision of Dr. Barclay. The patient has a history of a 1.4 cm peripherally enhancing nodule in the right thyroid seen on a previous CT scan dated 11/30/2020. The patient had a previous biopsy on 12/01/2020. The samples, however, were un diagnostic. The patient is referred for re-biopsy. The risks and benefits of the procedure were explained to the patient and informed consent obtained. The right thyroid nodule was localized using ultrasound guidance. The skin was prepped and draped in a sterile fashion. 2 mL of 1% lidocaine was used as a local anesthetic. Using ultrasound guidance 6 fine-needle aspirations were obtained using 25 gauge needles. The patient tolerated the procedure well and there were no immediate complications. After the appropriate amount to monitor convalescence the patient was discharged from the department. FINDINGS: None IMPRESSION: Ultrasound-guided right thyroid biopsy. <Electronically signed by Rocael Chi > 12/15/20 1536 <Electronically signed by Tadeo Barclay > 12/15/20 [id number]
== END ==
LOC: M IRPRO 13:33
PROVIDERS: ATTEND Otolaryngology
DX: D34 Benign neoplasm of thyroid gland (principal)

== ENCOUNTER → 2021-01-04 | Outpatient (CLI) | payer BC ==
[~2021-01-04] MED LIST changes: +COLE1TAB PO; -DIPH2.5T14; +DIPH2.5T14 PO; +E-Z-GAS II EFFERVESCENT PACKET (SODIUM BICARB./CITRIC ACID/SIMETHICONE) As Ordered ONE; +E-Z-HD 98% w/w 340GM SUSP BTL As Ordered ONE; +E-Z-PAQUE 96% w/w SUSP 176GM BTL As Ordered ONE; -LIDOCAINE 1% MDV 20ML VIAL As Ordered ONE
--- NOTE | 2021-01-04 16:33 | REP ---
INDICATION: DIFFICULTY SWALLOWING. COMPARISON: None. TECHNIQUE: This procedure was performed under the direct supervision of Dr. Sutton. Images were reviewed with Dr. Sutton. Liquid barium and gas producing granules were given in the erect position as well as liquid barium in the prone oblique positions in order to perform a double contrast esophagram examination. A combination of fluoroscopy, spot films and last image hold technology was utilized. 0.7 minutes of fluoro time was utilized for this procedure. FINDINGS: A single view PA chest x-ray is submitted as a finish rolls operator film. The superior mediastinal structures are midline. The heart size is within normal limits. There is hyperinflation and emphysematous changes in the upper lobes. There is an Rkhdyh-I-Gjiv on the right. There are surgical clips noted in the right upper quadrant. The oral and pharyngeal stages of deglutition are unremarkable. 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 During esophageal transport there are tertiary waves demonstrated. There is no esophagitis, stricture, mucosal ring, or hiatal hernia.Gastroesophageal reflux is not demonstrated on this examination. IMPRESSION: 1. 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 2. Tertiary waves. <Electronically signed by Rocael Chi > 01/04/21 1619 <Electronically signed by Wu Sutton > 01/04/21 1637
== END ==
LOC: M RAD 08:37
PROVIDERS: ATTEND Internal Medicine Hematology & Oncology
DX: C18.9 Malignant neoplasm of colon, unspecified (principal); Z15.09 Genetic susceptibility to other malignant neoplasm

== ENCOUNTER 2021-02-11 09:34 | Inpatient (IN) | payer BC ==
[~2021-02-11] VITALS: Ht 162.6 cm; Wt 43.6 kg
[~2021-02-11 09:34] MED LIST changes: -E-Z-GAS II EFFERVESCENT PACKET (SODIUM BICARB./CITRIC ACID/SIMETHICONE) As Ordered ONE; -E-Z-HD 98% w/w 340GM SUSP BTL As Ordered ONE; -E-Z-PAQUE 96% w/w SUSP 176GM BTL As Ordered ONE; +K-TA10TA2 PO
--- OUTSIDE RECORDS SUMMARY | 2021-02-11 09:45 | CCD | Continuity of Care Document ---
Author Author Jose CARDOZA PLANT PROTECTION OFFICER Organization Unknown Address [address] [place] [id number] Phone [phone] Care Team Providers Care Science Technicians Name Role Phone TeodoroEstelle dasilvaclemente DEMARCO AUTM [phone] Tesah Medrano MD AUTM [phone] Problems Active Problems Provider Date Postprocedural hypothyroidism Angela Lezama PA-C Ons et: 03/28/2016 Constant exophthalmos Omaira Sheehan DO Onset: 6 Toxic diffuse goiter with no crisis Omaira Sheehan DO On set: 08/12/2015 Tachycardia Omaira Sheehan DO Onset: 08/12/2015 Tobacco use Omaira Sheehan DO Onset: 08/12/2015 Substance abuse counseling Omaira Sheehan DO Onset: 07/31 Thyrotoxicosis without goiter or other cause Omaira salazar DO Onset: 08/12/2015 Social History Type Date Description Comments Sex Unknown Tobacco Use Start: Unknown End: Unknown Former Cigarette Smo ker ETOH Use Occasionally consumes alcohol Tobacco Use Start: Unknown 1 PPD x 30 years Tobacco Use Start: Unknown End: Unknown Patient is a former smoker Smoking Status Reviewed: 02/04/21 Patient is a former smoker Allergies and adverse reactions Description No Known Drug Allergies Medications Active Medications SIG Qnty Indications Ordering Provide r Date Levothyroxine Sodium 125mcg Tablet s 1 tab by mouth every day 90tabs E89.0 Stefanie Cardoza NP 2020 Atenolol 25mg Tablets take one tablet by mouth every day 30tabs Stefanie Cardoza NP 9 Anoro Ellipta 62.5-25mcg/Inh Aeros ol one inhalation qd Stefanie Cardoza, NICK 9 Zofran 4mg Tablets one by mouth every 6 hours as needed for nausea Unknown Compazine (10MG) 1 po qd Unknown 00 Imodium A-D 2mg Tablets 2 tablets once a day Unknown Nystatin [id number] Suspension use as directed Unknown Immunizations Description No Information Available Vital Signs Date Vital Result Comment 11/03/2020 10:45am BP Systolic 124 mmHg BP Diastolic 70 mmHg Heart Rate 94 /min Weight 110.31 lb O2 % BldC Oximetry 98 % 08/24/2020 3:54pm BP Systolic 90 mmHg BP Diastolic 60 mmHg Heart Rate 76 /min Body Temperature 97.4 F Height 64 inches 5'4" Weight 124.50 lb BMI (Body Mass Index) 21.4 kg/m2 Results Test Acquired Date Facility Test Result H/L Range Note TSH & Free T4 11/01/2020 [facility] ntr [address] [place] [address] (315)- - Thyroid Stimulating Hormone 3.050 uIU/ML Normal 0.358- 3.740 Free T4 1.66 ng/dL High 0.76-1.46 Basic Metabolic Profile 11/01/2020 [facility] l Centr [address] [place] [address] (315)- - Glucose, Fasting 80 mg/dL Normal 70-100 Blood Urea Nitrogen 7 mg/dL Normal 7-18 Creatinine For GFR 0.54 mg/dL Low 0.55-1.30 Glomerular Filtration Rate > 60.0 Normal >51 1 Sodium Level 138 mEq/L Normal 136-145 Potassium Serum 3.3 mEq/L Low 3.5-5.1 Chloride Level 98 mEq/L Normal 98-107 Carbon Dioxide Level 29 mEq/L Normal 21-32 Anion Gap 11 mEq/L Normal 8-16 Calcium Level 9.2 mg/dL Normal 8.5-10.1 1 Units are mL/min/1.73 m2 Chronic Kidney Disease Staging per NKF: Stage I & II GFR >=60 Normal to Mildly Decreased Stage III GFR 30-59 Moderately Decreased Stage IV GFR 15-29 Severely Decreased Stage V GFR <15 Very Little GFR Left ESRD GFR <15 on PLANER SETTER Procedures Date Code Description Status 02/04/2021 60537 Office/Outpatient Established Mo d MDM 30-39 Min Completed 11/03/2020 88106 Office/Outpatient Established Lo w MDM 20-29 Min Completed 08/24/2020 51461 Office/Outpatient Established Mo d MDM 30-39 Min Completed Medical Devices Description No Information Available Encounters Type Date Location Provider Dx Diagnosis Office Visit 02/04/2021 11:15a DR. Chula Cardoza, N P E89.0 Postprocedural hypothyroidism I10 Essential (primary) hyperten antonio C18.9 Malignant neoplasm of colon, unspecified R22.1 Localized swelling, mass and lump, neck Office Visit 11/03/2020 10:45a DR. Chula Cardoza, N P E89.0 Postprocedural hypothyroidism I10 Essential (primary) hyperten antonio C18.9 Malignant neoplasm of colon, unspecified Office Visit 08/24/2020 4:15p DR. Chula Cardoza, N P E89.0 Postprocedural hypothyroidism I10 Essential (primary) hyperten antonio C18.9 Malignant neoplasm of colon, unspecified Assessments Date Code Description Provider 02/04/2021 E89.0 Postprocedural hypothyroidism Kim Cardoza, PLANT PROTECTION OFFICER 02/04/2021 I10 Essential (primary) hypertension Stefanie Cardoza, PLANT PROTECTION OFFICER 02/04/2021 C18.9 Malignant neoplasm of colon, uns pecified Stefanie Cardoza, PLANT PROTECTION OFFICER 02/04/2021 R22.1 Localized swelling, mass and lum p, neck Stefanie Cardoza, PLANT PROTECTION OFFICER 11/03/2020 E89.0 Postprocedural hypothyroidism Kim Cardoza, PLANT PROTECTION OFFICER 11/03/2020 I10 Essential (primary) hypertension Stefanie Cardoza, PLANT PROTECTION OFFICER 11/03/2020 C18.9 Malignant neoplasm of colon, uns pecified Stefanie Cardoza, PLANT PROTECTION OFFICER 11/02/2020 E89.0 Postprocedural hypothyroidism Kim Cardoza, PLANT PROTECTION OFFICER 11/02/2020 I10 Essential (primary) hypertension Stefanie Cardoza, PLANT PROTECTION OFFICER 11/02/2020 C18.9 Malignant neoplasm of colon, uns pecified Stefanie Cardoza, NICK 08/24/2020 E89.0 Postprocedural hypothyroidism Kim Cardoza NP 08/24/2020 I10 Essential (primary) hypertension Stefanie Cardoza NP 08/24/2020 C18.9 Malignant neoplasm of colon, uns pecified Stefanie Cardoza NP Plan of Treatment Future Appointment(s):* 06/06/2021 11:15 am - Chula Geronimo MD at DR. Chula Geronimo 02/04/2021 - Stefanie Cardoza NP* E89.0 Postprocedural hypothyroidism* New Labs:* FT4&TSH Panel, Scheduled: 02/04/21 * Thyroglob QNT Incl Thyrogl Erin, Scheduled: 02/04/21 * Comments:* Was Levothyroxine 88mcg po qd. 12/15/2019- TSH= 7.4, FT4= 1.74; although FT4 is " elevated" her TSH has risen progressively since we lowered her levothyroxine in 2018.Dr. Geronimo increased Levothyroxine back to 100mcg to see if TSH normalizes. Also check FT4 by dialysis= 1.7- upper limits of normal 03/22/2020- TSH= 0.403Was on Levothyroxine 100mcg po qd. Labs done 08/13/20- TSH= 11.55- state compliance with medicationDose increased to Levothyroxine 125 mcg po qd. Labs done 11/01/20- TSH= 3.050, FT4= 1.66 - asymptomaticCurrently on Levothyroxine 125 mcg po qd. No recent labs done Will send script [facility] labWill recheck in 4 months. * Follow up:* 3 months JL * I10 Essential (primary) hypertension* Comments:* Pt on Atenolol * C18.9 Malignant neoplasm of colon, unspecified* Comments:* DX in 03/2020Had colon resectionNow receiving chemo through port which was inserted in April 2020. Is on a chemotherapy pump for 51 hours every 2 week- will complete course next week. Positive Cruz Syndrome. Followed by Dr. Ronel Hewitt/Onc Salima Also seen by [facility] for infusions. PT is scheduled for followu p CT scans next month Is down to 99 lbs * R22.1 Localized swelling, mass and lump, neck* Comments:* New problem: Pt states now has thyroid mass. I personally obtained information from [employer] On 11/30/20- pt had CT scan of neck- noted 1.4 cm ill defined right thyroid mass. Pt had FNA performed 12/15/20 and 12/21/20- no malignancy noted. However, pt is referred to Dr Maya and has appt 02/22/21 for evaluation. Functional Status Description No Information Available Mental Status Description No Information Available Referrals Description No Information Available
--- OUTSIDE RECORDS SUMMARY | 2021-02-11 09:45 | CCD | Continuity of Care Document ---
Author Author Jose CARDOZA GLASS SETTER Organization Unknown Address [address] [place] [id number] Phone [phone] Care Team Providers Care Customer Quality Specialist Name Role Phone TeodoroEstelle dasilvaclemente DEMARCO AUTM [phone] Tesha Medrano MD AUTM [phone] Problems Active Problems Provider Date Postprocedural hypothyroidism [...] 2 tablets once a day Unknown Nystatin [id number] Suspension use as directed Unknown Immunizations Description [...] Range Note TSH & Free T4 11/01/2020 [facility] ntr [address] [place] [address] (315)- - Thyroid Stimulating Hormone 3.050 uIU/ML Normal 0.358- 3.740 Free T4 1.66 ng/dL High 0.76-1.46 Basic Metabolic Profile 11/01/2020 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 Procedures Date Code Description Status 02/04/2021 61992 Office/Outpatient Established Mo d MDM 30-39 Min Completed 11/03/2020 38286 Office/Outpatient Established Lo w MDM 20-29 Min Completed 08/24/2020 80370 Office/Outpatient Established Mo d MDM 30-39 Min [...] Provider 02/04/2021 E89.0 Postprocedural hypothyroidism Kim Cardoza, GLASS SETTER 02/04/2021 I10 Essential (primary) hypertension Stefanie Cardoza, GLASS SETTER 02/04/2021 C18.9 Malignant neoplasm of colon, uns pecified Stefanie Cardoza, GLASS SETTER 02/04/2021 R22.1 Localized swelling, mass and lum p, neck Stefanie Cardoza, GLASS SETTER 11/03/2020 E89.0 Postprocedural hypothyroidism Kim Cardoza, GLASS SETTER 11/03/2020 I10 Essential (primary) hypertension Stefanie Cardoza, GLASS SETTER 11/03/2020 C18.9 Malignant neoplasm of colon, uns pecified Stefanie Cardoza, GLASS SETTER 11/02/2020 E89.0 Postprocedural hypothyroidism Kim Cardoza, GLASS SETTER 11/02/2020 I10 Essential (primary) hypertension Stefanie Cardoza, GLASS SETTER 11/02/2020 C18.9 Malignant neoplasm of colon, uns pecified Stefanie Cardoza, NICK 08/24/2020 E89.0 Postprocedural hypothyroidism Kim Cardoza NP 08/24/2020 I10 Essential (primary) hypertension Stefanie Cardoza, NICK 08/24/2020 C18.9 Malignant neoplasm of colon, uns pecified Stefanie Cardoza NP Plan of Treatment 02/04/2021 - Stefanie Cardoza NP* E89.0 Postprocedural [...] recent labs done [facility] labWill recheck in 4 months. * Follow [...] Dr. Ronel Hewitt/Onc Salima Also seen by [facility] for infusions. PT is scheduled for followu p CT scans next month Is down to 99 lbs * R22.1 Localized swelling, mass and lump, neck* Comments:* New problem: Pt states now has thyroid mass. I personally obtained information from [employer] On 11/30/20- pt had CT scan of neck- noted 1.4 cm ill defined right thyroid mass. Pt had FNA performed 12/15/20 and 12/21/20- no malignancy noted. However, pt is referred to Dr Maya and has appt 02/22/21 for evaluation. Functional Status Description No Information Available Mental Status Description No Information Available Referrals Description No Information Available
--- OUTSIDE RECORDS SUMMARY | 2021-02-11 09:45 | CCD | Continuity of Care Document ---
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 Onset: 0 Social History Type Date Description Comments Sex Unknown ETOH Use Denies alcohol use Tobacco Use Start: Unknown End: Unknown Patient is a former smoker QUIT 05/24/16 Allergies and adverse reactions Description No Known Drug Allergies Medications Active Medications SIG Qnty Indications Ordering Provide r Date Klor-Con M10 10Meq Tablets ER 2 by mouth twice a day 90tabs CLAIRE Pak JR 021 Nystatin 623407Wejm/ML Suspension 5 milliliters swish and spit four times daily for 14 days or until thrush is resolved 200ml Franklyn Gutierrez MD 03/15/2020 Ondansetron HCL 4mg Tablets take one tablet by mouth every 6 hours as needed for nausea/vomiting 30tabs Franklyn Gutierrez MD 03/15/2020 Buspirone HCL 10mg Tablets Take 1 Tablet By Mouth Twice A Day 60tabs DAV Morales 08/01/19 20 Albuterol Sulfate HFA 108(90Base) mcg/Act Aerosol 2 puffs four times a day as needed 8.500gm Sherron Valerio FNP 01/31/2019 Atenolol 25mg Tablets 1 by mouth every day 90tabs Franklyn Gutierrez MD 07/29/[address] take one capsule by mouth every day prn 30caps Sherron Valerio FNP 06/09/2015 Anoro Ellipta 62.5-25mcg/Inh Aeros ol 1 inhalation daily Unknown Diphenoxylate-Atropine 2.5-0.025mg Tablets Unknown Prochlorperazine Maleate 10mg Tablets Unknown Cholestyramine 4gm Packet Sarah Wells MD Imodium A-D 2mg Capsules 1 by mouth as needed, no more than 4 tablets in 24hrs Unknown Levothyroxine Sodium 100mcg Tablet s 1 by mouth every day Unknown Medications Administered in Office Medication SIG Qnty Indications Ordering Provider Date Immunization Adminstration,1 Vaccine/Tox oid Injection Sherron Valerio FNP 01/01/20 18 Immunizations CPT Code Status Date Vaccine Lot # [id number] Given 12/31/2017 Influenza Virus Vaccine, Quadrivalent ([id number]), Derived From 0 Given 01/11/2017 Influenza Vaccin e Quadrivalent Preser/Antibiotic Free Im Use [id number] Vital Signs Date Vital Result Comment 08/13/2020 10:40am BP Systolic 94 mmHg BP Diastolic 62 mmHg Heart Rate 98 /min Height 62.5 inches 5'2.50" Weight 133.00 lb O2 % BldC Oximetry 93 % BMI (Body Mass Index) 23.9 kg/m2 02/04/2020 8:25am BP Systolic 122 mmHg LT Arm BP Diastolic 78 mmHg LT Arm Heart Rate 88 /min Height 62.5 inches 5'2.50" Weight 147.00 lb BMI (Body Mass Index) 26.5 kg/m2 Results Test Acquired Date Facility Test Result H/L Range Note Comprehensive Metabolic Profil 02/01/[address] [id number] [phone] Glucose, Fasting 88 mg/dL Normal 70-100 Blood Urea Nitrogen 6 mg/dL Low 7-18 Creatinine For GFR 0.39 mg/dL Low 0.55-1.30 Glomerular Filtration Rate > 60.0 Normal >51 1 Sodium Level 140 mEq/L Normal 136-145 Potassium Serum 4.4 mEq/L Normal 3.5-5.1 Chloride Level 107 mEq/L Normal 98-107 Carbon Dioxide Level 31 mEq/L Normal 21-32 Anion Gap 2 mEq/L Low 8-16 Calcium Level 9.5 mg/dL Normal 8.5-10.1 Ast/Sgot 33 U/L Normal 7-37 Alt/SGPT 29 U/L Normal 12-78 Alkaline Phosphatase 177 U/L High 45-117 Bilirubin,Total 0.6 mg/dL Normal 0.2-1.0 Total Protein 5.9 GM/DL Low 6.4-8.2 Albumin 2.8 GM/DL Low 3.2-5.2 Albumin/Globulin Ratio 0.9 Low 1.2-2.2 CBC With Differential 02/01/[address] [address] [phone] White Blood Count 4.9 10 Normal 4.0-10.0 Red Blood Count 4.04 10 Normal 4.00-5.40 Hemoglobin 12.8 g/dL Normal 12.0-15.5 Hematocrit 40.5 % Normal 36.0-47.0 Mean Corpuscular Volume 100.2 fl High 80.0-96.0 Mean Corpuscular Hemoglobin 31.7 pg Normal 27.0-33.0 Mean Corpuscular HGB Conc 31.6 g/dL Low 32.0-36.5 Red Cell Distribution Width 14.1 % Normal 11.5-14.5 Platelet Count, Automated 198 10 Normal 150-450 Neutrophils % 71.6 % High 36.0-66.0 Lymph % 15.0 % Low 24.0-44.0 Elliott % 11.4 % High 2.0-8.0 Eos % 0.8 % Normal 0.0-3.0 Baso % 0.8 % Normal 0.0-1.0 Immature Granulocyte % 0.4 % Normal 0-3.0 Nucleated Red Blood Cell % 0.0 % Normal 0-0 Neutrophils # 3.5 10 Normal 1.5-8.5 Lymph # 0.7 10 Low 1.5-5.0 Elliott # 0.6 10 Normal 0.0-0.8 Eos # 0.0 10 Normal 0.0-0.5 Baso # 0.0 10 Normal 0.0-0.2 Laboratory test finding 02/01/[address] [place] [address] [phone] Magnesium Level 1.8 mg/dL Normal 1.8-2.4 Carcinoembryonic Antigen 4.8 NG/ML High <2.5 2 CBC With Differential 01/25/[address] [address] [phone] White Blood Count 3.4 10 Low 4.0-10.0 Red Blood Count 3.94 10 Low 4.00-5.40 Hemoglobin 12.8 g/dL Normal 12.0-15.5 Hematocrit 40.0 % Normal 36.0-47.0 Mean Corpuscular Volume 101.5 fl High 80.0-96.0 Mean Corpuscular Hemoglobin 32.5 pg Normal 27.0-33.0 Mean Corpuscular HGB Conc 32.0 g/dL Normal 32.0-36.5 Red Cell Distribution Width 14.2 % Normal 11.5-14.5 Platelet Count, Automated 179 10 Normal 150-450 Neutrophils % 59.9 % Normal 36.0-66.0 Lymph % 21.4 % Low 24.0-44.0 Elliott % 14.8 % High 2.0-8.0 Eos % 2.1 % Normal 0.0-3.0 Baso % 1.5 % High 0.0-1.0 Immature Granulocyte % 0.3 % Normal 0-3.0 Nucleated Red Blood Cell % 0.0 % Normal 0-0 Neutrophils # 2.0 10 Normal 1.5-8.5 Lymph # 0.7 10 Low 1.5-5.0 Elliott # 0.5 10 Normal 0.0-0.8 Eos # 0.1 10 Normal 0.0-0.5 Baso # 0.1 10 Normal 0.0-0.2 Comprehensive Metabolic Profil 01/25/[address] [address] [phone] Glucose, Fasting 95 mg/dL Normal 70-100 Blood Urea Nitrogen 5 mg/dL Low 7-18 Creatinine For GFR 0.46 mg/dL Low 0.55-1.30 Glomerular Filtration Rate > 60.0 Normal >51 3 Sodium Level 142 mEq/L Normal 136-145 Potassium Serum 4.5 mEq/L Normal 3.5-5.1 Chloride Level 107 mEq/L Normal 98-107 Carbon Dioxide Level 30 mEq/L Normal 21-32 Anion Gap 5 mEq/L Low 8-16 Calcium Level 9.1 mg/dL Normal 8.5-10.1 Ast/Sgot 45 U/L High 7-37 Alt/SGPT 30 U/L Normal 12-78 Alkaline Phosphatase 162 U/L High 45-117 Bilirubin,Total 0.5 mg/dL Normal 0.2-1.0 Total Protein 5.6 GM/DL Low 6.4-8.2 Albumin 2.4 GM/DL Low 3.2-5.2 Albumin/Globulin Ratio 0.8 Low 1.2-2.2 Laboratory test finding 01/18/[address] [address] [phone] Magnesium Level 1.7 mg/dL Low 1.8-2.4 Comprehensive Metabolic Profil 01/18/[address] [address] [phone] Glucose, Fasting 108 mg/dL High 70-100 Blood Urea Nitrogen 4 mg/dL Low 7-18 Creatinine For GFR 0.62 mg/dL Normal 0.55-1.30 Glomerular Filtration Rate > 60.0 Normal >51 4 Sodium Level 140 mEq/L Normal 136-145 Potassium Serum 4.4 mEq/L Normal 3.5-5.1 Chloride Level 105 mEq/L Normal 98-107 Carbon Dioxide Level 31 mEq/L Normal 21-32 Anion Gap 4 mEq/L Low 8-16 Calcium Level 8.7 mg/dL Normal 8.5-10.1 Ast/Sgot 40 U/L High 7-37 Alt/SGPT 24 U/L Normal 12-78 Alkaline Phosphatase 158 U/L High 45-117 Bilirubin,Total 0.6 mg/dL Normal 0.2-1.0 Total Protein 5.8 GM/DL Low 6.4-8.2 Albumin 2.4 GM/DL Low 3.2-5.2 Albumin/Globulin Ratio 0.7 Low 1.2-2.2 CBC With Differential 01/18/[address] [address] [phone] White Blood Count 4.6 10 Normal 4.0-10.0 Red Blood Count 4.02 10 Normal 4.00-5.40 Hemoglobin 13.0 g/dL Normal 12.0-15.5 Hematocrit 41.1 % Normal 36.0-47.0 Mean Corpuscular Volume 102.2 fl High 80.0-96.0 Mean Corpuscular Hemoglobin 32.3 pg Normal 27.0-33.0 Mean Corpuscular HGB Conc 31.6 g/dL Low 32.0-36.5 Red Cell Distribution Width 14.6 % High 11.5-14.5 Platelet Count, Automated 161 10 Normal 150-450 Neutrophils % 65.3 % Normal 36.0-66.0 Lymph % 18.9 % Low 24.0-44.0 Elliott % 13.2 % High 2.0-8.0 Eos % 1.3 % Normal 0.0-3.0 Baso % 1.1 % High 0.0-1.0 Immature Granulocyte % 0.2 % Normal 0-3.0 Nucleated Red Blood Cell % 0.0 % Normal 0-0 Neutrophils # 3.0 10 Normal 1.5-8.5 Lymph # 0.9 10 Low 1.5-5.0 Elliott # 0.6 10 Normal 0.0-0.8 Eos # 0.1 10 Normal 0.0-0.5 Baso # 0.1 10 Normal 0.0-0.2 CBC With Differential 01/11/[address] [address] [phone] White Blood Count 4.0 10 Normal 4.0-10.0 Red Blood Count 4.16 10 Normal 4.00-5.40 Hemoglobin 13.5 g/dL Normal 12.0-15.5 Hematocrit 42.8 % Normal 36.0-47.0 Mean Corpuscular Volume 102.9 fl High 80.0-96.0 Mean Corpuscular Hemoglobin 32.5 pg Normal 27.0-33.0 Mean Corpuscular HGB Conc 31.5 g/dL Low 32.0-36.5 Red Cell Distribution Width 14.8 % High 11.5-14.5 Platelet Count, Automated 140 10 Low 150-450 Neutrophils % 62.9 % Normal 36.0-66.0 Lymph % 20.8 % Low 24.0-44.0 Elliott % 13.9 % High 2.0-8.0 Eos % 1.5 % Normal 0.0-3.0 Baso % 0.7 % Normal 0.0-1.0 Immature Granulocyte % 0.2 % Normal 0-3.0 Nucleated Red Blood Cell % 0.0 % Normal 0-0 Neutrophils # 2.5 10 Normal 1.5-8.5 Lymph # 0.8 10 Low 1.5-5.0 Elliott # 0.6 10 Normal 0.0-0.8 Eos # 0.1 10 Normal 0.0-0.5 Baso # 0.0 10 Normal 0.0-0.2 Comprehensive Metabolic Profil 01/11/[address] [address] [phone] Glucose, Fasting 108 mg/dL High 70-100 Blood Urea Nitrogen 3 mg/dL Low 7-18 Creatinine For GFR 0.46 mg/dL Low 0.55-1.30 Glomerular Filtration Rate > 60.0 Normal >51 5 Sodium Level 142 mEq/L Normal 136-145 Potassium Serum 3.3 mEq/L Low 3.5-5.1 Chloride Level 106 mEq/L Normal 98-107 Carbon Dioxide Level 33 mEq/L High 21-32 Anion Gap 3 mEq/L Low 8-16 Calcium Level 8.9 mg/dL Normal 8.5-10.1 Ast/Sgot 30 U/L Normal 7-37 Alt/SGPT 19 U/L Normal 12-78 Alkaline Phosphatase 130 U/L High 45-117 Bilirubin,Total 0.8 mg/dL Normal 0.2-1.0 Total Protein 5.4 GM/DL Low 6.4-8.2 Albumin 2.2 GM/DL Low 3.2-5.2 Albumin/Globulin Ratio 0.7 Low 1.2-2.2 Laboratory test finding 01/11/2021 [facility] [address] [place] [phone] [phone] Magnesium Level 1.6 mg/dL Low 1.8-2.4 CBC With Differential 01/04/[address] [address] [phone] White Blood Count 5.2 10 Normal 4.0-10.0 Red Blood Count 4.19 10 Normal 4.00-5.40 Hemoglobin 13.9 g/dL Normal 12.0-15.5 Hematocrit 42.6 % Normal 36.0-47.0 Mean Corpuscular Volume 101.7 fl High 80.0-96.0 Mean Corpuscular Hemoglobin 33.2 pg High 27.0-33.0 Mean Corpuscular HGB Conc 32.6 g/dL Normal 32.0-36.5 Red Cell Distribution Width 15.5 % High 11.5-14.5 Platelet Count, Automated 152 10 Normal 150-450 Neutrophils % 66.1 % High 36.0-66.0 Lymph % 20.8 % Low 24.0-44.0 Elliott % 11.9 % High 2.0-8.0 Eos % 0.2 % Normal 0.0-3.0 Baso % 0.6 % Normal 0.0-1.0 Immature Granulocyte % 0.4 % Normal 0-3.0 Nucleated Red Blood Cell % 0.0 % Normal 0-0 Neutrophils # 3.5 10 Normal 1.5-8.5 Lymph # 1.1 10 Low 1.5-5.0 Elliott # 0.6 10 Normal 0.0-0.8 Eos # 0.0 10 Normal 0.0-0.5 Baso # 0.0 10 Normal 0.0-0.2 Comprehensive Metabolic Profil 01/04/[address] [address] [phone] Glucose, Fasting 98 mg/dL Normal 70-100 Blood Urea Nitrogen 4 mg/dL Low 7-18 Creatinine For GFR 0.46 mg/dL Low 0.55-1.30 Glomerular Filtration Rate > 60.0 Normal >51 6 Sodium Level 139 mEq/L Normal 136-145 Potassium Serum 4.0 mEq/L Normal 3.5-5.1 Chloride Level 102 mEq/L Normal 98-107 Carbon Dioxide Level 32 mEq/L Normal 21-32 Anion Gap 5 mEq/L Low 8-16 Calcium Level 9.6 mg/dL Normal 8.5-10.1 Ast/Sgot 28 U/L Normal 7-37 Alt/SGPT 20 U/L Normal 12-78 Alkaline Phosphatase 148 U/L High 45-117 Bilirubin,Total 0.8 mg/dL Normal 0.2-1.0 Total Protein 5.7 GM/DL Low 6.4-8.2 Albumin 2.7 GM/DL Low 3.2-5.2 Albumin/Globulin Ratio 0.9 Low 1.2-2.2 Laboratory test finding 01/04/[address] [phone] Magnesium Level 1.6 mg/dL Low 1.8-2.4 CA 125 145.7 U/ML High <30.2 7 Carcinoembryonic Antigen 5.2 NG/ML High <2.5 8 CBC With Differential 11/30/[address] [address] [phone] White Blood Count 15.2 10 High 4.0-10.0 Red Blood Count 4.27 10 Normal 4.00-5.40 Hemoglobin 13.8 g/dL Normal 12.0-15.5 Hematocrit 42.7 % Normal 36.0-47.0 Mean Corpuscular Volume 100.0 fl High 80.0-96.0 Mean Corpuscular Hemoglobin 32.3 pg Normal 27.0-33.0 Mean Corpuscular HGB Conc 32.3 g/dL Normal 32.0-36.5 Red Cell Distribution Width 18.0 % High 11.5-14.5 Platelet Count, Automated 117 10 Low 150-450 Neutrophils % 80.6 % High 36.0-66.0 Lymph % 7.3 % Low 24.0-44.0 Elliott % 8.2 % High 2.0-8.0 Eos % 0.2 % Normal 0.0-3.0 Baso % 0.5 % Normal 0.0-1.0 Immature Granulocyte % 3.2 % High 0-3.0 Nucleated Red Blood Cell % 0.0 % Normal 0-0 Neutrophils # 12.2 10 High 1.5-8.5 Lymph # 1.1 10 Low 1.5-5.0 Elliott # 1.3 10 High 0.0-0.8 Eos # 0.0 10 Normal 0.0-0.5 Baso # 0.1 10 Normal 0.0-0.2 Laboratory test finding 11/30/[address] [address] [phone] Lipase 47 U/L Low 73-393 Liver Profile 11/30/2020 [facility] [address] [id number] [phone] Ast/Sgot 19 U/L Normal 7-37 Alt/SGPT 22 U/L Normal 12-78 Alkaline Phosphatase 218 U/L High 45-117 Bilirubin,Total 1.2 mg/dL High 0.2-1.0 Bilirubin,Direct 0.5 mg/dL High 0.0-0.2 Total Protein 6.3 GM/DL Low 6.4-8.2 Albumin 2.9 GM/DL Low 3.2-5.2 Albumin/Globulin Ratio 0.9 Low 1.2-2.2 Cardiac Marker Panel 11/30/2020 [place] [address] [place] [id number] [phone] CPK Creatine Phosphokinase 18 U/L Low 26-19 2 CK-MB Value Mass < 1.0 NG/ML Normal <3.6 MB/CK Relative Index 5.56 High < Or =4 9 Troponin I < 0.02 NG/ML Normal < 0.10 10 Istat Chem8+ Panel 11/30/2020 [address] [place] [address] [phone] iSTAT HCT 46.0 % Normal 38.0-51.0 iSTAT Glucose 106 mg/dL High 70-105 iSTAT Sodium 136 mEq/L Normal 136-145 iSTAT Potassium 3.0 mEq/L Low 3.5-5.1 iSTAT CA++ 4.6 mg/dL Normal 4.5-5.3 iSTAT Chloride 92 mEq/L Low 98-109 iSTAT Co2 30.0 MM/L High 23.0-27.0 iSTAT BUN 4 mg/dL Low 8-26 iSTAT Creatinine 0.4 mg/dL Low 0.6-1.3 Basic Metabolic Profile 09/24/2020 [facility] [address] [place] [address] [phone] Glucose, Fasting 93 mg/dL Normal 70-100 Blood Urea Nitrogen 4 mg/dL Low 7-18 Creatinine For GFR 0.52 mg/dL Low 0.55-1.30 Glomerular Filtration Rate > 60.0 Normal >51 1 1 Sodium Level 142 mEq/L Normal 136-145 Potassium Serum 3.6 mEq/L Normal 3.5-5.1 Chloride Level 104 mEq/L Normal 98-107 Carbon Dioxide Level 33 mEq/L High 21-32 Anion Gap 5 mEq/L Low 8-16 Calcium Level 9.3 mg/dL Normal 8.5-10.1 Laboratory test finding 09/24/[address] [id number] [phone] Phosphorus Level 3.6 mg/dL Normal 2.5-4.9 Magnesium Level 1.9 mg/dL Normal 1.8-2.4 CBC With Differential 09/24/[address] [address] [phone] White Blood Count 7.0 10 Normal 4.0-10.0 Red Blood Count 4.00 10 Normal 4.00-5.40 Hemoglobin 12.7 g/dL Normal 12.0-15.5 Hematocrit 41.1 % Normal 36.0-47.0 Mean Corpuscular Volume 102.8 fl High 80.0-96.0 Mean Corpuscular Hemoglobin 31.8 pg Normal 27.0-33.0 Mean Corpuscular HGB Conc 30.9 g/dL Low 32.0-36.5 Red Cell Distribution Width 17.4 % High 11.5-14.5 Platelet Count, Automated 157 10 Normal 150-450 Neutrophils % 64.8 % Normal 36.0-66.0 Lymph % 14.8 % Low 24.0-44.0 Elliott % 17.0 % High 2.0-8.0 Eos % 0.6 % Normal 0.0-3.0 Baso % 1.4 % High 0.0-1.0 Immature Granulocyte % 1.4 % Normal 0-3.0 Nucleated Red Blood Cell % 0.0 % Normal 0-0 Neutrophils # 4.5 10 Normal 1.5-8.5 Lymph # 1.0 10 Low 1.5-5.0 Elliott # 1.2 10 High 0.0-0.8 Eos # 0.0 10 Normal 0.0-0.5 Baso # 0.1 10 Normal 0.0-0.2 Basic Metabolic Profile 09/17/2020 [facility] [address] [place] [address] [phone] Glucose, Fasting 96 mg/dL Normal 70-100 Blood Urea Nitrogen 2 mg/dL Low 7-18 Creatinine For GFR 0.51 mg/dL Low 0.55-1.30 Glomerular Filtration Rate > 60.0 Normal >51 1 2 Sodium Level 143 mEq/L Normal 136-145 Potassium Serum 3.4 mEq/L Low 3.5-5.1 Chloride Level 107 mEq/L Normal 98-107 Carbon Dioxide Level 30 mEq/L Normal 21-32 Anion Gap 6 mEq/L Low 8-16 Calcium Level 9.0 mg/dL Normal 8.5-10.1 Basic Metabolic Profile 09/16/2020 [facility] [address] [place] [address] [phone] Glucose, Fasting 92 mg/dL Normal 70-100 Blood Urea Nitrogen 3 mg/dL Low 7-18 Creatinine For GFR 0.58 mg/dL Normal 0.55-1.30 Glomerular Filtration Rate > 60.0 Normal >51 1 3 Sodium Level 140 mEq/L Normal 136-145 Potassium Serum 3.4 mEq/L Low 3.5-5.1 Chloride Level 107 mEq/L Normal 98-107 Carbon Dioxide Level 30 mEq/L Normal 21-32 Anion Gap 3 mEq/L Low 8-16 Calcium Level 9.0 mg/dL Normal 8.5-10.1 Istat Chem8+ Panel 08/16/2020 [facility] [address]ter [address] [place] [address] [phone] iSTAT HCT 42.0 % Normal 38.0-51.0 iSTAT Glucose 102 mg/dL Normal 70-105 iSTAT Sodium 137 mEq/L Normal 136-145 iSTAT Potassium 3.6 mEq/L Normal 3.5-5.1 iSTAT CA++ 4.4 mg/dL Low 4.5-5.3 iSTAT Chloride 96 mEq/L Low 98-109 iSTAT Co2 35.0 MM/L High 23.0-27.0 iSTAT BUN 8 mg/dL Normal 8-26 iSTAT Creatinine 0.8 mg/dL Normal 0.6-1.3 CBC With Differential 08/16/2020 [facility] [address] [place] [address] [phone] White Blood Count 12.8 10 High 4.0-10.0 Red Blood Count 4.14 10 Normal 4.00-5.40 Hemoglobin 13.3 g/dL Normal 12.0-15.5 Hematocrit 41.7 % Normal 36.0-47.0 Mean Corpuscular Volume 100.7 fl High 80.0-96.0 Mean Corpuscular Hemoglobin 32.1 pg Normal 27.0-33.0 Mean Corpuscular HGB Conc 31.9 g/dL Low 32.0-36.5 Red Cell Distribution Width 22.5 % High 11.5-14.5 Platelet Count, Automated 180 10 Normal 150-450 Neutrophils % 74.9 % High 36.0-66.0 Lymph % 10.8 % Low 24.0-44.0 Elliott % 10.2 % High 2.0-8.0 Eos % 0.1 % Normal 0.0-3.0 Baso % 0.6 % Normal 0.0-1.0 Immature Granulocyte % 3.4 % High 0-3.0 Nucleated Red Blood Cell % 0.2 % High 0-0 Neutrophils # 9.6 10 High 1.5-8.5 Lymph # 1.4 10 Low 1.5-5.0 Elliott # 1.3 10 High 0.0-0.8 Eos # 0.0 10 Normal 0.0-0.5 Baso # 0.1 10 Normal 0.0-0.2 Cardiac Marker Panel 08/16/2020 [facility] [address] [place] [address] [phone] CPK Creatine Phosphokinase 39 U/L Normal 26-19 2 CK-MB Value Mass < 1.0 NG/ML Normal <3.6 MB/CK Relative Index 2.56 Normal < Or =4 14 Troponin I < 0.02 NG/ML Normal < 0.10 15 Liver Profile 08/16/2020 [facility] [address]ter [address] [place] [address] [phone] Ast/Sgot 32 U/L Normal 7-37 Alt/SGPT 18 U/L Normal 12-78 Alkaline Phosphatase 142 U/L High 45-117 Bilirubin,Total 0.9 mg/dL Normal 0.2-1.0 Bilirubin,Direct 0.3 mg/dL High 0.0-0.2 Total Protein 6.2 GM/DL Low 6.4-8.2 Albumin 3.1 GM/DL Low 3.2-5.2 Albumin/Globulin Ratio 1.0 Low 1.2-2.2 Laboratory test finding 08/16/2020 [facility] [address] [place] [address] [phone] Magnesium Level 2.2 mg/dL Normal 1.8-2.4 Lipase 48 U/L Low 73-393 Lipid Profile 08/13/2020 [facility] , Critical Care Specialist: Dr Franklyn Gutierrez [place] [id number] [phone] Cholesterol 110 mg/dL Low 131 - 200 Triglycerides 92 mg/dL 30 - 150 HDL Cholesterol 48 mg/dL 35 - 60 LDL (Calculated) 44 CALC Low 50 - 159 Laboratory test finding 08/13/2020 [facility], Critical Care Specialist: [place] [address] [phone] Thyroid Stimulating Hormone 11.55 uIU/mL High 0. 36 - 3.74 Laboratory test finding 08/13/2020 [facility], Critical Care Specialist: [place] [address] [phone] T4 Free 1.73 ng/dL High 0.76 - 1.46 1 Units are mL/min/1.73 m2 Chronic Kidney Disease Staging per NKF: Stage I & II GFR >=60 Normal to Mildly Decreased Stage III GFR 30-59 Moderately Decreased Stage IV GFR 15-29 Severely Decreased Stage V GFR <15 Very Little GFR Left ESRD GFR <15 on FULL STACK ENGINEER 2 THE CEA ASSAY IS PERFORMED O N THE [employer] BY CHEMILUMINESCENCE AND SHOULD NOT BE COMPARED INTERCHANGEABLY WITH OTHER METHODS. IT SHOULD NOT BE USED ALONE A SCREENING TEST OR DIAGNOSIS FOR THE PRESENCE OR ABSENCE OF MALIGNANT DISEASE. PREDICTIONS OF DISEASE RECURRENCE SHOULD NOT BE BASED SOLELY ON VALUES OBTAINED FROM SERIAL PATIENT SERUM VALUES. 3 Units are mL/min/1.73 m2 Chronic Kidney Disease Staging per NKF: Stage I & II GFR >=60 Normal to Mildly Decreased Stage III GFR 30-59 Moderately Decreased Stage IV GFR 15-29 Severely Decreased Stage V GFR <15 Very Little GFR Left ESRD GFR <15 on FULL STACK ENGINEER 4 Units are mL/min/1.73 m2 Chronic Kidney Disease Staging per NKF: Stage I & II GFR >=60 Normal to Mildly Decreased Stage III GFR 30-59 Moderately Decreased Stage IV GFR 15-29 Severely Decreased Stage V GFR <15 Very Little GFR Left ESRD GFR <15 on FULL STACK ENGINEER 5 Units are mL/min/1.73 m2 Chronic Kidney Disease Staging per NKF: Stage I & II GFR >=60 Normal to Mildly Decreased Stage III GFR 30-59 Moderately Decreased Stage IV GFR 15-29 Severely Decreased Stage V GFR <15 Very Little GFR Left ESRD GFR <15 on FULL STACK ENGINEER 6 Units are mL/min/1.73 m2 Chronic Kidney Disease Staging per NKF: Stage I & II GFR >=60 Normal to Mildly Decreased Stage III GFR 30-59 Moderately Decreased Stage IV GFR 15-29 Severely Decreased Stage V GFR <15 Very Little GFR Left ESRD GFR <15 on FULL STACK ENGINEER 7 THE CA 125 ASSAY IS PERFORME D ON THE [employer] BY CHEMILUMINESCENCE AND SHOULD NOT BE COMPARED INTERCHANGEABLY WITH OTHER METHODS. IT SHOULD NOT BE USED ALONE A SCREENING TEST OR DIAGNOSIS FOR THE PRESENCE OR ABSENCE OF MALIGNANT DISEASE. PREDICTIONS OF DISEASE RECURRENCE SHOULD NOT BE BASED SOLELY ON VALUES OBTAINED FROM SERIAL PATIENT SERUM VALUES. 8 THE CEA ASSAY IS PERFORMED O N THE [employer] BY CHEMILUMINESCENCE AND SHOULD NOT BE COMPARED INTERCHANGEABLY WITH OTHER METHODS. IT SHOULD NOT BE USED ALONE A SCREENING TEST OR DIAGNOSIS FOR THE PRESENCE OR ABSENCE OF MALIGNANT DISEASE. PREDICTIONS OF DISEASE RECURRENCE SHOULD NOT BE BASED SOLELY ON VALUES OBTAINED FROM SERIAL PATIENT SERUM VALUES. 9 DIAGNOSIS CRITERIA MMB ng/ml Relative Index (RI) NON-AMI < or = 5 N/A WILBURN ZONE > 5 < or = 4 AMI > 5 > 4 10 Troponin I Reference Interva l for [employer] LOCI: 99th Percentile= 0.00-0.045 ng/ml Risk Stratification: <= 0.10 ng/ml Decreased Risk for Adverse Clinical Events. 0.10-1.50 ng/ml Increased Risk for Adv erse Clinical Events. Evaluation of additional criterion and/or repeat testing in 2-6 hours is suggested to rule out myocardial damage. >= 1.50 ng/ml Indicative of Myocardial Injury. 11 Units are mL/min/1.73 m2 Chronic Kidney Disease Staging per NKF: Stage I & II GFR >=60 Normal to Mildly Decreased Stage III GFR 30-59 Moderately Decreased Stage IV GFR 15-29 Severely Decreased Stage V GFR <15 Very Little GFR Left ESRD GFR <15 on FULL STACK ENGINEER 12 Units are mL/min/1.73 m2 Chronic Kidney Disease Staging per NKF: Stage I & II GFR >=60 Normal to Mildly Decreased Stage III GFR 30-59 Moderately Decreased Stage IV GFR 15-29 Severely Decreased Stage V GFR <15 Very Little GFR Left ESRD GFR <15 on FULL STACK ENGINEER 13 Units are mL/min/1.73 m2 Chronic Kidney Disease Staging per NKF: Stage I & II GFR >=60 Normal to Mildly Decreased Stage III GFR 30-59 Moderately Decreased Stage IV GFR 15-29 Severely Decreased Stage V GFR <15 Very Little GFR Left ESRD GFR <15 on FULL STACK ENGINEER 14 DIAGNOSIS CRITERIA MMB ng/ml Relative Index (RI) NON-AMI < or = 5 N/A [place] > 5 < or = 4 AMI > 5 > 4 15 Troponin I Reference Interva l for [email or web address] LOCI: 99th Percentile= 0.00-0.045 ng/ml Risk Stratification: <= 0.10 ng/ml Decreased Risk for Adverse Clinical Events. 0.10-1.50 ng/ml Increased Risk for Adv erse Clinical Events. Evaluation of additional criterion and/or repeat testing in 2-6 hours is suggested to rule out myocardial damage. >= 1.50 ng/ml Indicative of Myocardial Injury. 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 I10 Essential (primary) hyperten antonio E03.9 Hypothyroidism, unspecified K21.9 Gastro-esophageal reflux dis ease without esophagitis F43.22 Adjustment disorder with anx iety Z84.81 Family history of carrier of genetic disease 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 Assessments Date Code Description Provider 08/13/2020 C18.6 Malignant neoplasm of descending colon CLAIRE Pak JR 08/13/2020 C54.1 Malignant neoplasm of endometriu m CLAIRE Pak JR 08/13/2020 I10 Essential (primary) hypertension CLAIRE Pak JR 08/13/2020 E03.9 Hypothyroidism, unspecified [place] CLAIRE Lloyd JR 08/13/2020 K21.9 Gastro-esophageal reflux disease without esophagitis CLAIRE Pak JR 08/13/2020 F43.22 Adjustment disorder with anxiety CLAIRE Pak JR 08/13/2020 Z84.81 Family history of carrier of gen etic disease CLAIRE Pak JR 08/13/2020 Z15.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 08/13/2020 - CLAIRE Pak JR* C18.6 Malignant neoplasm of descending colon* Comments:* Following with [facility] oncology at this time, is undergoing chemo * C54.1 Malignant neoplasm of endometrium* Comments:* continue to monitor for worsening symptoms, in remission * I10 Essential (primary) hypertension* Comments:* She is currently at [facility] goals, diet and exercise were discussed including Mediterranean diet and 30 minutes of aerobic exercise daily, continue current medication regimen at this time. 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* Comments:* Continue to follow with oncology, labs reviewed * All * New Medication:* Klor-Con M10 10 Meq - 2 by mouth twice a day * Comments:* Old records, consultation notes, and labs reviewed, total time spent with patient 41 minutes Functional Status Description No Information Available Mental Status Description No Information Available Referrals Refer to Reason for Referral Status Appt Date [facility] Hematology/Oncology TECHNICIAN TEST SYSTEMS CONSULT FOR CRUZ SYNDROM E, COLON CANCER TRANSFER FROM [facility] Patient Notified 01/04/2021 [address] [place] [address] [phone]
--- OUTSIDE RECORDS SUMMARY | 2021-02-11 09:46 | CCD ---
Continuity of Care Document (CCD) Created on: 01/18/2021 Jose Puentes Grupo External Reference #: [id number] : 1960 Sex: Female Author Organization Unknown Address Unknown Phone Unavailable Care Team Providers Care Field Marketer Name Role Phone Chula Geronimo MD - DM, Osteo & Endo CNT AUTM [phone] Claudine Orosco AUTM [phone] Problems Active Problems Provider Date Cruz syndrome [...] day 90tabs CLAIRE Pak JR 021 Nystatin [id number] Suspension 5 milliliters swish and spit four [...] CPT Code Status Date Vaccine Lot # [id number] Given 12/31/2017 Influenza Virus Vaccine, Quadrivalent (Cciiv4), Derived From 7 Given 01/11/2017 Influenza Vaccin e Quadrivalent Preser/Antibiotic Free Im Use [id number] Vital Signs Date Vital Result Comment 08/13/2020 [...] Result H/L Range Note Comprehensive Metabolic Profil 01/18/[address] [id number] [phone] Glucose, Fasting 108 mg/dL High 70-100 Blood [...] 0.7 Low 1.2-2.2 CBC With Differential 01/18/[address] [address] [phone] White Blood Count 4.6 10 Normal 4.0-10.0 [...] 36.0-66.0 Lymph % 18.9 % Low 24.0-44.0 [place] % 13.2 % High 2.0-8.0 Eos % 1.3 % Normal 0.0-3.0 Baso % 1.1 % High 0.0-1.0 Immature Granulocyte % 0.2 % Normal 0-3.0 Nucleated Red Blood Cell % 0.0 % Normal 0-0 Neutrophils # 3.0 10 Normal 1.5-8.5 Lymph # 0.9 10 Low 1.5-5.0 [place] # 0.6 10 Normal 0.0-0.8 Eos # 0.1 10 Normal 0.0-0.5 Baso # 0.1 10 Normal 0.0-0.2 Laboratory test finding 01/18/[address] [place] [address] [phone] Magnesium Level 1.7 mg/dL Low 1.8-2.4 CBC With Differential 01/11/[address] [address] [phone] White Blood Count 4.0 10 Normal 4.0-10.0 [...] 36.0-66.0 Lymph % 20.8 % Low 24.0-44.0 [place] % 13.9 % High 2.0-8.0 Eos % 1.5 % Normal 0.0-3.0 Baso % 0.7 % Normal 0.0-1.0 Immature Granulocyte % 0.2 % Normal 0-3.0 Nucleated Red Blood Cell % 0.0 % Normal 0-0 Neutrophils # 2.5 10 Normal 1.5-8.5 Lymph # 0.8 10 Low 1.5-5.0 [place] # 0.6 10 Normal 0.0-0.8 Eos # 0.1 10 Normal 0.0-0.5 Baso # 0.0 10 Normal 0.0-0.2 Comprehensive Metabolic Profil 01/11/[address] [address] [phone] Glucose, Fasting 108 mg/dL High 70-100 Blood Urea Nitrogen 3 mg/dL Low 7-18 Creatinine For GFR 0.46 mg/dL Low 0.55-1.30 Glomerular Filtration Rate > 60.0 Normal >51 2 Sodium Level 142 mEq/L Normal 136-145 Potassium [...] 0.7 Low 1.2-2.2 Laboratory test finding 01/11/[address] [address] [phone] Magnesium Level 1.6 mg/dL Low 1.8-2.4 CBC With Differential 01/04/[address] [address] [phone] White Blood Count 5.2 10 Normal 4.0-10.0 [...] 36.0-66.0 Lymph % 20.8 % Low 24.0-44.0 [place] % 11.9 % High 2.0-8.0 Eos % 0.2 % Normal 0.0-3.0 Baso % 0.6 % Normal 0.0-1.0 Immature Granulocyte % 0.4 % Normal 0-3.0 Nucleated Red Blood Cell % 0.0 % Normal 0-0 Neutrophils # 3.5 10 Normal 1.5-8.5 Lymph # 1.1 10 Low 1.5-5.0 [place] # 0.6 10 Normal 0.0-0.8 Eos # 0.0 10 Normal 0.0-0.5 Baso # 0.0 10 Normal 0.0-0.2 Comprehensive Metabolic Profil 01/04/[address] [address] [phone] Glucose, Fasting 98 mg/dL Normal 70-100 Blood Urea Nitrogen 4 mg/dL Low 7-18 Creatinine For GFR 0.46 mg/dL Low 0.55-1.30 Glomerular Filtration Rate > 60.0 Normal >51 3 Sodium Level 139 mEq/L Normal 136-145 Potassium [...] 0.9 Low 1.2-2.2 Laboratory test finding 01/04/[address] [address] [phone] Magnesium Level 1.6 mg/dL Low 1.8-2.4 CA 125 145.7 U/ML High <30.2 4 Carcinoembryonic Antigen 5.2 NG/ML High <2.5 5 CBC With Differential 11/30/[address] [address] [phone] White Blood Count 15.2 10 High 4.0-10.0 [...] 36.0-66.0 Lymph % 7.3 % Low 24.0-44.0 [place] % 8.2 % High 2.0-8.0 Eos % 0.2 % Normal 0.0-3.0 Baso % 0.5 % Normal 0.0-1.0 Immature Granulocyte % 3.2 % High 0-3.0 Nucleated Red Blood Cell % 0.0 % Normal 0-0 Neutrophils # 12.2 10 High 1.5-8.5 Lymph # 1.1 10 Low 1.5-5.0 [place] # 1.3 10 High 0.0-0.8 Eos # 0.0 10 Normal 0.0-0.5 Baso # 0.1 10 Normal 0.0-0.2 Laboratory test finding 11/30/2020 [facility] [address] [place] [address] [phone] Lipase 47 U/L Low 73-393 Liver Profile 11/30/2020 [facility] nter [address] [place] [address] [phone] Ast/Sgot 19 U/L Normal 7-37 Alt/SGPT 22 U/L Normal 12-78 Alkaline Phosphatase 218 U/L High 45-117 Bilirubin,Total 1.2 mg/dL High 0.2-1.0 Bilirubin,Direct 0.5 mg/dL High 0.0-0.2 Total Protein 6.3 GM/DL Low 6.4-8.2 Albumin 2.9 GM/DL Low 3.2-5.2 Albumin/Globulin Ratio 0.9 Low 1.2-2.2 Cardiac Marker Panel 11/30/2020 [facility] enter [address] [place] [address] [phone] CPK Creatine Phosphokinase 18 U/L Low 26-19 2 CK-MB Value Mass < 1.0 NG/ML Normal <3.6 MB/CK Relative Index 5.56 High < Or =4 6 Troponin I < 0.02 NG/ML Normal < 0.10 7 Istat Chem8+ Panel 11/30/2020 [facility] nter [address] [place] [address] [phone] iSTAT HCT 46.0 % Normal 38.0-51.0 iSTAT Glucose 106 mg/dL High 70-105 iSTAT Sodium 136 mEq/L Normal 136-145 iSTAT Potassium 3.0 mEq/L Low 3.5-5.1 iSTAT CA++ 4.6 mg/dL Normal 4.5-5.3 iSTAT Chloride 92 mEq/L Low 98-109 iSTAT Co2 30.0 MM/L High 23.0-27.0 iSTAT BUN 4 mg/dL Low 8-26 iSTAT Creatinine 0.4 mg/dL Low 0.6-1.3 Basic Metabolic Profile 09/24/[address] [address] [phone] Glucose, Fasting 93 mg/dL Normal 70-100 Blood Urea Nitrogen 4 mg/dL Low 7-18 Creatinine For GFR 0.52 mg/dL Low 0.55-1.30 Glomerular Filtration Rate > 60.0 Normal >51 8 Sodium Level 142 mEq/L Normal 136-145 Potassium Serum 3.6 mEq/L Normal 3.5-5.1 Chloride Level 104 mEq/L Normal 98-107 Carbon Dioxide Level 33 mEq/L High 21-32 Anion Gap 5 mEq/L Low 8-16 Calcium Level 9.3 mg/dL Normal 8.5-10.1 Laboratory test finding 09/24/[address] [address] [phone] Phosphorus Level 3.6 mg/dL Normal 2.5-4.9 Magnesium Level 1.9 mg/dL Normal 1.8-2.4 CBC With Differential 09/24/[address] [address] [phone] White Blood Count 7.0 10 Normal 4.0-10.0 [...] 36.0-66.0 Lymph % 14.8 % Low 24.0-44.0 [place] % 17.0 % High 2.0-8.0 Eos % 0.6 % Normal 0.0-3.0 Baso % 1.4 % High 0.0-1.0 Immature Granulocyte % 1.4 % Normal 0-3.0 Nucleated Red Blood Cell % 0.0 % Normal 0-0 Neutrophils # 4.5 10 Normal 1.5-8.5 Lymph # 1.0 10 Low 1.5-5.0 [place] # 1.2 10 High 0.0-0.8 Eos # 0.0 10 Normal 0.0-0.5 Baso # 0.1 10 Normal 0.0-0.2 Basic Metabolic Profile 09/17/[address] [address]7915 [phone] Glucose, Fasting 96 mg/dL Normal 70-100 Blood Urea Nitrogen 2 mg/dL Low 7-18 Creatinine For GFR 0.51 mg/dL Low 0.55-1.30 Glomerular Filtration Rate > 60.0 Normal >51 9 Sodium Level 143 mEq/L Normal 136-145 Potassium Serum 3.4 mEq/L Low 3.5-5.1 Chloride Level 107 mEq/L Normal 98-107 Carbon Dioxide Level 30 mEq/L Normal 21-32 Anion Gap 6 mEq/L Low 8-16 Calcium Level 9.0 mg/dL Normal 8.5-10.1 Basic Metabolic Profile 09/16/[address] [id number] [phone] Glucose, Fasting 92 mg/dL Normal 70-100 Blood Urea Nitrogen 3 mg/dL Low 7-18 Creatinine For GFR 0.58 mg/dL Normal 0.55-1.30 Glomerular Filtration Rate > 60.0 Normal >51 1 0 Sodium Level 140 mEq/L Normal 136-145 Potassium Serum 3.4 mEq/L Low 3.5-5.1 Chloride Level 107 mEq/L Normal 98-107 Carbon Dioxide Level 30 mEq/L Normal 21-32 Anion Gap 3 mEq/L Low 8-16 Calcium Level 9.0 mg/dL Normal 8.5-10.1 Istat Chem8+ Panel 08/16/2020 [facility] nter [address], [place] [id number] [phone] iSTAT HCT 42.0 % Normal 38.0-51.0 iSTAT Glucose 102 mg/dL Normal 70-105 iSTAT Sodium 137 mEq/L Normal 136-145 iSTAT Potassium 3.6 mEq/L Normal 3.5-5.1 iSTAT CA++ 4.4 mg/dL Low 4.5-5.3 iSTAT Chloride 96 mEq/L Low 98-109 iSTAT Co2 35.0 MM/L High 23.0-27.0 iSTAT BUN 8 mg/dL Normal 8-26 iSTAT Creatinine 0.8 mg/dL Normal 0.6-1.3 CBC With Differential 08/16/2020 [facility] [address] [place] [address] [phone] White Blood Count 12.8 10 High 4.0-10.0 [...] 36.0-66.0 Lymph % 10.8 % Low 24.0-44.0 [place] % 10.2 % High 2.0-8.0 Eos % 0.1 % Normal 0.0-3.0 Baso % 0.6 % Normal 0.0-1.0 Immature Granulocyte % 3.4 % High 0-3.0 Nucleated Red Blood Cell % 0.2 % High 0-0 Neutrophils # 9.6 10 High 1.5-8.5 Lymph # 1.4 10 Low 1.5-5.0 [place] # 1.3 10 High 0.0-0.8 Eos # 0.0 10 Normal 0.0-0.5 Baso # 0.1 10 Normal 0.0-0.2 Cardiac Marker Panel 08/16/2020 [facility] enter [address] [place] [id number] [phone] CPK Creatine Phosphokinase 39 U/L Normal 26-19 2 CK-MB Value Mass < 1.0 NG/ML Normal <3.6 MB/CK Relative Index 2.56 Normal < Or =4 11 Troponin I < 0.02 NG/ML Normal < 0.10 12 Liver Profile 08/16/2020 [facility] nter [address] [place] [address] [phone] Ast/Sgot 32 U/L Normal 7-37 Alt/SGPT 18 U/L Normal 12-78 Alkaline Phosphatase 142 U/L High 45-117 Bilirubin,Total 0.9 mg/dL Normal 0.2-1.0 Bilirubin,Direct 0.3 mg/dL High 0.0-0.2 Total Protein 6.2 GM/DL Low 6.4-8.2 Albumin 3.1 GM/DL Low 3.2-5.2 Albumin/Globulin Ratio 1.0 Low 1.2-2.2 Laboratory test finding 08/16/2020 [facility] [address] [place] [address] [phone] Magnesium Level 2.2 mg/dL Normal 1.8-2.4 Lipase 48 U/L Low 73-393 Lipid Profile 08/13/2020 [facility] Health Outreach Worker: [place] [address] [phone] Cholesterol 110 mg/dL Low 131 - 200 Triglycerides 92 mg/dL 30 - 150 HDL Cholesterol 48 mg/dL 35 - 60 LDL (Calculated) 44 CALC Low 50 - 159 Laboratory test finding 08/13/2020 [facility] Health Outreach Worker: [place] [address] [phone] Thyroid Stimulating Hormone 11.55 uIU/mL High 0. 36 - 3.74 Laboratory test finding 08/13/2020 [facility] Outreach Worker: [place] [address] [phone] T4 Free 1.73 ng/dL High 0.76 - 1.46 1 Units are mL/min/1.73 m2 Chronic Kidney Disease Staging per NKF: Stage I & II GFR >=60 Normal to Mildly Decreased Stage III GFR 30-59 Moderately Decreased Stage IV GFR 15-29 Severely Decreased Stage V GFR <15 Very Little GFR Left ESRD GFR <15 on HEAD BOYS GOLF COACH 2 Units are mL/min/1.73 m2 Chronic Kidney Disease Staging per NKF: Stage I & II GFR >=60 Normal to Mildly Decreased Stage III GFR 30-59 Moderately Decreased Stage IV GFR 15-29 Severely Decreased Stage V GFR <15 Very Little GFR Left ESRD GFR <15 on HEAD BO[employer] GOLF COACH 3 Units are mL/min/1.73 m2 Chronic Kidney Disease Staging per NKF: Stage I & II GFR >=60 Normal to Mildly Decreased Stage III GFR 30-59 Moderately Decreased Stage IV GFR 15-29 Severely Decreased Stage V GFR <15 Very Little GFR Left ESRD GFR <15 on HEAD BOYS GOLF COACH 4 THE CA 125 ASSAY IS PERFORME D ON THE BalzoAUR BY CHEMILUMINESCENCE AND SHOULD NOT BE COMPARED INTERCHANGEABLY WITH OTHER METHODS. IT SHOULD NOT BE USED ALONE A SCREENING TEST OR DIAGNOSIS FOR THE PRESENCE OR ABSENCE OF MALIGNANT DISEASE. PREDICTIONS OF DISEASE RECURRENCE SHOULD NOT BE BASED SOLELY ON VALUES OBTAINED FROM SERIAL PATIENT SERUM VALUES. 5 THE CEA ASSAY IS PERFORMED O N THE BalzoAUR BY CHEMILUMINESCENCE AND SHOULD NOT BE COMPARED INTERCHANGEABLY WITH OTHER METHODS. IT SHOULD NOT BE USED ALONE A SCREENING TEST OR DIAGNOSIS FOR THE PRESENCE OR ABSENCE OF MALIGNANT DISEASE. PREDICTIONS OF DISEASE RECURRENCE SHOULD NOT BE BASED SOLELY ON VALUES OBTAINED FROM SERIAL PATIENT SERUM VALUES. 6 DIAGNOSIS CRITERIA MMB ng/ml Relative Index (RI) NON-AMI < or = 5 N/A WILBURN ZONE > 5 < or = 4 AMI > 5 > 4 7 Troponin I Reference Interva l for Siemens Fundability LOCI: 99th Percentile= 0.00-0.045 ng/ml Risk Stratification: <= 0.10 ng/ml Decreased Risk for Adverse Clinical Events. 0.10-1.50 ng/ml Increased Risk for Adv erse Clinical Events. Evaluation of additional criterion and/or repeat testing in 2-6 hours is suggested to rule out myocardial damage. >= 1.50 ng/ml Indicative of Myocardial Injury. 8 Units are mL/min/1.73 m2 Chronic Kidney Disease Staging per NKF: Stage I & II GFR >=60 Normal to Mildly Decreased Stage III GFR 30-59 Moderately Decreased Stage IV GFR 15-29 Severely Decreased Stage V GFR <15 Very Little GFR Left ESRD GFR <15 on HEAD BOYS GOLF COACH 9 Units are mL/min/1.73 m2 Chronic Kidney Disease Staging per NKF: Stage I & II GFR >=60 Normal to Mildly Decreased Stage III GFR 30-59 Moderately Decreased Stage IV GFR 15-29 Severely Decreased Stage V GFR <15 Very Little GFR Left ESRD GFR <15 on HEAD BOYS GOLF COACH 10 Units are mL/min/1.73 m2 Chronic Kidney Disease Staging per NKF: Stage I & II GFR >=60 Normal to Mildly Decreased Stage III GFR 30-59 Moderately Decreased Stage IV GFR 15-29 Severely Decreased Stage V GFR <15 Very Little GFR Left ESRD GFR <15 on HEAD BOYS GOLF COACH 11 DIAGNOSIS CRITERIA MMB ng/ml Relative Index (RI) NON-AMI < or = 5 N/A WILBURN ZONE > 5 < or = 4 AMI > 5 > 4 12 Troponin I Reference Interva l for Siemens Fundability LOCI: 99th Percentile= 0.00-0.045 ng/ml Risk Stratification: <= 0.10 ng/ml Decreased Risk for Adverse Clinical Events. 0.10-1.50 ng/ml Increased Risk for Adv erse Clinical Events. Evaluation of additional criterion and/or repeat testing in 2-6 hours is suggested to rule out myocardial damage. >= 1.50 ng/ml Indicative of Myocardial Injury. Procedures Date Code Description Status 08/13/2020 [id number] Office/Outpatient Established Mo d MDM 30-39 Min Completed 11/27/2017 [id number] Colonoscopy Completed 12/29/2011 [id number] Colonoscopy Completed 09/14/2008 [id number] Colonoscopy Completed Medical Devices Description No Information Available Encounters Type Date Location Provider Dx Diagnosis Office Visit [facility] C18.6 Malignant [...] 02/16/2021 11:00 am - DAV Morales at [facility] 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
--- OUTSIDE RECORDS SUMMARY | 2021-02-11 09:46 | CCD | Continuity of Care Document ---
Author Organization Unknown Address Unknown Phone Unavailable Care Team Providers Care Information Security Specialist Name Role Phone Chula Geronimo MD - DM, Osteo & Endo CNT AUTM [phone] Claudine Orosco AUTM [phone] Problems Active Problems Provider Date Cruz syndrome [...] day 90tabs CLAIRE Pak JR 021 Nystatin [id number]/ML Suspension 5 milliliters swish and spit four [...] CPT Code Status Date Vaccine Lot # [id number] Given 12/31/2017 Influenza Virus Vaccine, Quadrivalent ([id number]), Derived From 4 Given 01/11/2017 Influenza Vaccin e Quadrivalent Preser/Antibiotic Free Im Use [id number] Vital Signs Date Vital Result Comment 08/13/2020 [...] Result H/L Range Note Comprehensive Metabolic Profil 01/11/[address] [id number] [phone] Glucose, Fasting 108 mg/dL High 70-100 Blood Urea Nitrogen 3 mg/dL Low 7-18 Creatinine For GFR 0.46 mg/dL Low 0.55-1.30 Glomerular Filtration Rate > 60.0 Normal >51 1 Sodium Level 142 mEq/L Normal 136-145 [...] 0.7 Low 1.2-2.2 Laboratory test finding 01/11/[address] [address] [phone] Magnesium Level 1.6 mg/dL Low 1.8-2.4 CBC With Differential 01/11/[address] [address] [phone] White Blood Count 4.0 10 Normal 4.0-10.0 [...] 36.0-66.0 Lymph % 20.8 % Low 24.0-44.0 Ware % 13.9 % High 2.0-8.0 Eos % 1.5 % Normal 0.0-3.0 Baso % 0.7 % Normal 0.0-1.0 Immature Granulocyte % 0.2 % Normal 0-3.0 Nucleated Red Blood Cell % 0.0 % Normal 0-0 Neutrophils # 2.5 10 Normal 1.5-8.5 Lymph # 0.8 10 Low 1.5-5.0 Ware # 0.6 10 Normal 0.0-0.8 Eos # 0.1 10 Normal 0.0-0.5 Baso # 0.0 10 Normal 0.0-0.2 CBC With Differential 01/04/[address] [address] [phone] White Blood Count 5.2 10 Normal 4.0-10.0 [...] 36.0-66.0 Lymph % 20.8 % Low 24.0-44.0 Ware % 11.9 % High 2.0-8.0 Eos % 0.2 % Normal 0.0-3.0 Baso % 0.6 % Normal 0.0-1.0 Immature Granulocyte % 0.4 % Normal 0-3.0 Nucleated Red Blood Cell % 0.0 % Normal 0-0 Neutrophils # 3.5 10 Normal 1.5-8.5 Lymph # 1.1 10 Low 1.5-5.0 Ware # 0.6 10 Normal 0.0-0.8 Eos # 0.0 10 Normal 0.0-0.5 Baso # 0.0 10 Normal 0.0-0.2 Comprehensive Metabolic Profil 01/04/[address] [address] [phone] Glucose, Fasting 98 mg/dL Normal 70-100 Blood Urea Nitrogen 4 mg/dL Low 7-18 Creatinine For GFR 0.46 mg/dL Low 0.55-1.30 Glomerular Filtration Rate > 60.0 Normal >51 2 Sodium Level 139 mEq/L Normal 136-145 Potassium [...] 0.9 Low 1.2-2.2 Laboratory test finding 01/04/2021 [facility] [address] [place] [address] [phone] Magnesium Level 1.6 mg/dL Low 1.8-2.4 CA 125 145.7 U/ML High <30.2 3 Carcinoembryonic Antigen 5.2 NG/ML High <2.5 4 Istat Chem8+ Panel 11/30/2020 [facility] [address] [place] [address] [phone] iSTAT HCT 46.0 % Normal 38.0-51.0 iSTAT Glucose 106 mg/dL High 70-105 iSTAT Sodium 136 mEq/L Normal 136-145 iSTAT Potassium 3.0 mEq/L Low 3.5-5.1 iSTAT CA++ 4.6 mg/dL Normal 4.5-5.3 iSTAT Chloride 92 mEq/L Low 98-109 iSTAT Co2 30.0 MM/L High 23.0-27.0 iSTAT BUN 4 mg/dL Low 8-26 iSTAT Creatinine 0.4 mg/dL Low 0.6-1.3 Cardiac Marker Panel 11/30/2020 [facility] [address] [place] [address] [phone] CPK Creatine Phosphokinase 18 U/L Low 26-19 2 CK-MB Value Mass < 1.0 NG/ML Normal <3.6 MB/CK Relative Index 5.56 High < Or =4 5 Troponin I < 0.02 NG/ML Normal < 0.10 6 Liver Profile 11/30/2020 [facility] [address] [place] [address] [phone] Ast/Sgot 19 U/L Normal 7-37 Alt/SGPT 22 U/L Normal 12-78 Alkaline Phosphatase 218 U/L High 45-117 Bilirubin,Total 1.2 mg/dL High 0.2-1.0 Bilirubin,Direct 0.5 mg/dL High 0.0-0.2 Total Protein 6.3 GM/DL Low 6.4-8.2 Albumin 2.9 GM/DL Low 3.2-5.2 Albumin/Globulin Ratio 0.9 Low 1.2-2.2 Laboratory test finding 11/30/2020 [facility] [address] [place] [address] [phone] Lipase 47 U/L Low 73-393 CBC With Differential 11/30/[address] [address] [phone] White Blood Count 15.2 10 High 4.0-10.0 [...] 36.0-66.0 Lymph % 7.3 % Low 24.0-44.0 Ware % 8.2 % High 2.0-8.0 Eos % 0.2 % Normal 0.0-3.0 Baso % 0.5 % Normal 0.0-1.0 Immature Granulocyte % 3.2 % High 0-3.0 Nucleated Red Blood Cell % 0.0 % Normal 0-0 Neutrophils # 12.2 10 High 1.5-8.5 Lymph # 1.1 10 Low 1.5-5.0 Ware # 1.3 10 High 0.0-0.8 Eos # 0.0 10 Normal 0.0-0.5 Baso # 0.1 10 Normal 0.0-0.2 Laboratory test finding 09/24/[address] [address] [phone] Phosphorus Level 3.6 mg/dL Normal 2.5-4.9 Magnesium Level 1.9 mg/dL Normal 1.8-2.4 CBC With Differential 09/24/[address] [address] [phone] White Blood Count 7.0 10 Normal 4.0-10.0 [...] 36.0-66.0 Lymph % 14.8 % Low 24.0-44.0 Ware % 17.0 % High 2.0-8.0 Eos % 0.6 % Normal 0.0-3.0 Baso % 1.4 % High 0.0-1.0 Immature Granulocyte % 1.4 % Normal 0-3.0 Nucleated Red Blood Cell % 0.0 % Normal 0-0 Neutrophils # 4.5 10 Normal 1.5-8.5 Lymph # 1.0 10 Low 1.5-5.0 Ware # 1.2 10 High 0.0-0.8 Eos # 0.0 10 Normal 0.0-0.5 Baso # 0.1 10 Normal 0.0-0.2 Basic Metabolic Profile 09/24/[address] [address] [phone] Glucose, Fasting 93 mg/dL Normal 70-100 Blood Urea Nitrogen 4 mg/dL Low 7-18 Creatinine For GFR 0.52 mg/dL Low 0.55-1.30 Glomerular Filtration Rate > 60.0 Normal >51 7 Sodium Level 142 mEq/L Normal 136-145 Potassium Serum 3.6 mEq/L Normal 3.5-5.1 Chloride Level 104 mEq/L Normal 98-107 Carbon Dioxide Level 33 mEq/L High 21-32 Anion Gap 5 mEq/L Low 8-16 Calcium Level 9.3 mg/dL Normal 8.5-10.1 Basic Metabolic Profile 09/17/[address] [id number] [phone] Glucose, Fasting 96 mg/dL Normal 70-100 Blood Urea Nitrogen 2 mg/dL Low 7-18 Creatinine For GFR 0.51 mg/dL Low 0.55-1.30 Glomerular Filtration Rate > 60.0 Normal >51 8 Sodium Level 143 mEq/L Normal 136-145 Potassium Serum 3.4 mEq/L Low 3.5-5.1 Chloride Level 107 mEq/L Normal 98-107 Carbon Dioxide Level 30 mEq/L Normal 21-32 Anion Gap 6 mEq/L Low 8-16 Calcium Level 9.0 mg/dL Normal 8.5-10.1 Basic Metabolic Profile 09/16/[address] [address] [phone] Glucose, Fasting 92 mg/dL Normal 70-100 Blood Urea Nitrogen 3 mg/dL Low 7-18 Creatinine For GFR 0.58 mg/dL Normal 0.55-1.30 Glomerular Filtration Rate > 60.0 Normal >51 9 Sodium Level 140 mEq/L Normal 136-145 Potassium Serum 3.4 mEq/L Low 3.5-5.1 Chloride Level 107 mEq/L Normal 98-107 Carbon Dioxide Level 30 mEq/L Normal 21-32 Anion Gap 3 mEq/L Low 8-16 Calcium Level 9.0 mg/dL Normal 8.5-10.1 Istat Chem8+ Panel 08/16/2020 [facility] [address] [place] [address] [id number] [phone] iSTAT HCT 42.0 % Normal 38.0-51.0 iSTAT Glucose 102 mg/dL Normal 70-105 iSTAT Sodium 137 mEq/L Normal 136-145 iSTAT Potassium 3.6 mEq/L Normal 3.5-5.1 iSTAT CA++ 4.4 mg/dL Low 4.5-5.3 iSTAT Chloride 96 mEq/L Low 98-109 iSTAT Co2 35.0 MM/L High 23.0-27.0 iSTAT BUN 8 mg/dL Normal 8-26 iSTAT Creatinine 0.8 mg/dL Normal 0.6-1.3 CBC With Differential 08/16/2020 [facility] [address] [place] [address] [phone] White Blood Count 12.8 10 High 4.0-10.0 [...] 36.0-66.0 Lymph % 10.8 % Low 24.0-44.0 Ware % 10.2 % High 2.0-8.0 Eos % 0.1 % Normal 0.0-3.0 Baso % 0.6 % Normal 0.0-1.0 Immature Granulocyte % 3.4 % High 0-3.0 Nucleated Red Blood Cell % 0.2 % High 0-0 Neutrophils # 9.6 10 High 1.5-8.5 Lymph # 1.4 10 Low 1.5-5.0 Ware # 1.3 10 High 0.0-0.8 Eos # 0.0 10 Normal 0.0-0.5 Baso # 0.1 10 Normal 0.0-0.2 Cardiac Marker Panel 08/16/2020 [facility] [address] [place] [address] [phone] CPK Creatine Phosphokinase 39 U/L Normal 26-19 2 CK-MB Value Mass < 1.0 NG/ML Normal <3.6 MB/CK Relative Index 2.56 Normal < Or =4 10 Troponin I < 0.02 NG/ML Normal < 0.10 11 Liver Profile 08/16/2020 [facility] [address] [place] [address] [phone] Ast/Sgot 32 U/L Normal 7-37 Alt/SGPT 18 U/L Normal 12-78 Alkaline Phosphatase 142 U/L High 45-117 Bilirubin,Total 0.9 mg/dL Normal 0.2-1.0 Bilirubin,Direct 0.3 mg/dL High 0.0-0.2 Total Protein 6.2 GM/DL Low 6.4-8.2 Albumin 3.1 GM/DL Low 3.2-5.2 Albumin/Globulin Ratio 1.0 Low 1.2-2.2 Laboratory test finding 08/16/2020 [facility] [address] [place] [address] [phone] Magnesium Level 2.2 mg/dL Normal 1.8-2.4 Lipase 48 U/L Low 73-393 Lipid Profile 08/13/2020 [facility] Clinic Mgr: [place] [address] [phone] Cholesterol 110 mg/dL Low 131 - 200 Triglycerides 92 mg/dL 30 - 150 HDL Cholesterol 48 mg/dL 35 - 60 LDL (Calculated) 44 CALC Low 50 - 159 Laboratory test finding 08/13/2020 [facility] Mgr: [place] [address] [phone] Thyroid Stimulating Hormone 11.55 uIU/mL High 0. 36 - 3.74 Laboratory test finding 08/13/2020 [facility] Clinic Mgr: Dr Franklyn Gutierrez [place] [id number] [phone] T4 Free 1.73 ng/dL High 0.76 - 1.46 1 Units are mL/min/1.73 m2 Chronic Kidney Disease Staging per NKF: Stage I & II GFR >=60 Normal to Mildly Decreased Stage III GFR 30-59 Moderately Decreased Stage IV GFR 15-29 Severely Decreased Stage V GFR <15 Very Little GFR Left ESRD GFR <15 on COMBAT CONTROL 2 Units are mL/min/1.73 m2 Chronic Kidney Disease Staging per NKF: Stage I & II GFR >=60 Normal to Mildly Decreased Stage III GFR 30-59 Moderately Decreased Stage IV GFR 15-29 Severely Decreased Stage V GFR <15 Very Little GFR Left ESRD GFR <15 on COMBAT CONTROL 3 THE CA 125 ASSAY IS PERFORME D ON THE ZilicoAUR BY CHEMILUMINESCENCE AND SHOULD NOT BE COMPARED INTERCHANGEABLY WITH OTHER METHODS. IT SHOULD NOT BE USED ALONE A SCREENING TEST OR DIAGNOSIS FOR THE PRESENCE OR ABSENCE OF MALIGNANT DISEASE. PREDICTIONS OF DISEASE RECURRENCE SHOULD NOT BE BASED SOLELY ON VALUES OBTAINED FROM SERIAL PATIENT SERUM VALUES. 4 THE CEA ASSAY IS PERFORMED O N THE BLAIRE [employer] BY CHEMILUMINESCENCE AND SHOULD NOT BE COMPARED INTERCHANGEABLY WITH OTHER METHODS. IT SHOULD NOT BE USED ALONE A SCREENING TEST OR DIAGNOSIS FOR THE PRESENCE OR ABSENCE OF MALIGNANT DISEASE. PREDICTIONS OF DISEASE RECURRENCE SHOULD NOT BE BASED SOLELY ON VALUES OBTAINED FROM SERIAL PATIENT SERUM VALUES. 5 DIAGNOSIS CRITERIA MMB ng/ml Relative Index (RI) NON-AMI < or = 5 N/A WILBURN ZONE > 5 < or = 4 AMI > 5 > 4 6 Troponin I Reference Interva l for Siemens Harts LOCI: 99th Percentile= 0.00-0.045 ng/ml Risk Stratification: <= 0.10 ng/ml Decreased Risk for Adverse Clinical Events. 0.10-1.50 ng/ml Increased Risk for Adv erse Clinical Events. Evaluation of additional criterion and/or repeat testing in 2-6 hours is suggested to rule out myocardial damage. >= 1.50 ng/ml Indicative of Myocardial Injury. 7 Units are mL/min/1.73 m2 Chronic Kidney Disease Staging per NKF: Stage I & II GFR >=60 Normal to Mildly Decreased Stage III GFR 30-59 Moderately Decreased Stage IV GFR 15-29 Severely Decreased Stage V GFR <15 Very Little GFR Left ESRD GFR <15 on COMBAT CONTROL 8 Units are mL/min/1.73 m2 Chronic Kidney Disease Staging per NKF: Stage I & II GFR >=60 Normal to Mildly Decreased Stage III GFR 30-59 Moderately Decreased Stage IV GFR 15-29 Severely Decreased Stage V GFR <15 Very Little GFR Left ESRD GFR <15 on COMBAT CONTROL 9 Units are mL/min/1.73 m2 Chronic Kidney Disease Staging per NKF: Stage I & II GFR >=60 Normal to Mildly Decreased Stage III GFR 30-59 Moderately Decreased Stage IV GFR 15-29 Severely Decreased Stage V GFR <15 Very Little GFR Left ESRD GFR <15 on COMBAT CONTROL 10 DIAGNOSIS CRITERIA MMB ng/ml Relative Index (RI) NON-AMI < or = 5 N/A WILBURN ZONE > 5 < or = 4 AMI > 5 > 4 11 Troponin I Reference Interva l for [employer] LOCI: 99th Percentile= 0.00-0.045 ng/ml Risk Stratification: <= 0.10 ng/ml Decreased Risk for Adverse Clinical Events. 0.10-1.50 ng/ml Increased Risk for Adv erse Clinical Events. Evaluation of additional criterion and/or repeat testing in 2-6 hours is suggested to rule out myocardial damage. >= 1.50 ng/ml Indicative of Myocardial Injury. Procedures Date Code Description Status 08/13/2020 19551 Office/Outpatient Established Mo d MDM 30-39 Min Completed 11/27/2017 [id number] Colonoscopy Completed 12/29/2011 [id number] Colonoscopy Completed 09/14/2008 [id number] Colonoscopy Completed Medical Devices Description No Information Available Encounters Type Date Location Provider Dx Diagnosis Office Visit 08/13/2020 10:40a [facility] 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
--- OUTSIDE RECORDS SUMMARY | 2021-02-11 09:46 | CCD | Summary of Care ---
Author Author [facility] Organization [facility] Address Unknown Phone Unavailable Care Team Providers Care Liquor Bridge Operator Name Role Phone Sherron Valerio LDR RN PCP Encounter Details Care Team Description Date Type Department 12/20/2020 [facility] Anatomical Encounter Pathology at [place] [address] [place] [address] Allergies No Known Active Allergiesdocumented as of this encounter (statuses as of 12/21/2020) Medications End Date Status Medication Sig Dispensed Refills Start Date Active busPIRone (BUSPAR) 10 MG Take 10 mg by 0 tablet mouth Two Times Daily Active omeprazole (PRILOSEC) 40 Take 40 mg by 0 MG capsule mouth as needed Active levothyroxine (SYNTHROID, Take 125 mcg 0 LEVOTHROID) 125 MCG by mouth tablet daily Active levothyroxine (SYNTHROID, 88 mcg 1 06/01 LEVOTHROID) 112 MCG 9 tablet Active atenolol (TENORMIN) 25 MG Take 25 mg by 1 06/01 tablet mouth daily 9 Active Anoro Ellipta 62.5-25 Inhale 1 puff 180 each 3 MCG/INH Inhalation into the 1 Aerosol Powder Breath lungs daily ActivatedIndications: Other emphysema documented as of this encounter (statuses as of 12/21/2020) Active Problems Patient Care Coordination Note 06/27/16 CD from [facility] into [employer] ([employer]) and returned by mail to the pt. 10/19/16 CD from [facility] MZL [employer] uploa ded into [employer] ([employer]) and returned by mail to the pt. Problem Noted Date Chronic obstructive pulmonary disease 06/26/2016 documented as of this encounter (statuses as of 12/21/2020) Resolved Problems Problem Noted Date Resolved Date Smoking 06/26/2016 09/27/2016 documented as of this encounter (statuses as of 12/21/2020) Immunizations Name Administration Dates Next Due Influenza Quad IM Pres 01/20/2019 Free (0.5 mL dose) Pneumococcal 06/26/2016 Polysaccharide PPV23 documented as of this encounter Social History Date Tobacco Use Types Packs/Day Years Used Quit: 09/13/2016 Former Smoker Cigarettes 1.5 37 Smokeless Tobacco: Never Used Comments Alcohol Use Standard Drinks/Week No 0 (1 standard drink = 0.6 o z pure alcohol) Sex Assigned at Date Recorded Not on file documented as of this encounter Last Filed Vital Signs Not on filedocumented in this encounter Plan of Treatment Care Team Description Date Type Specialty Dominik Barton, PETER [address] [facility] [address] [place] [address] [phone] 02/14/2021 Telemedicine Pulmonology Date/Time Name Type Priority Associated Diag noses 12/20/2020 11:26 AM EDT Fine Needle Aspirate Pathology and Routine Cytology Order Schedule Name Type Priority Associated Diag noses Once for 1 Occurrences starting 12/21/19 21 until 12/20/2020 Fine Needle Aspirate Pathology and Routine Cytology Health Maintenance Due Date Last Done Comments Hepatitis C Screening (B. 1960 [id number]) DTaP,Tdap,and Td Vaccines 1969 (1 - Tdap) HIV Screening 10/16/1975 Cervical Cancer Screening 10/16/1983 5 years Varicella Vaccines (1 of 02/07/2012 2 - 2-dose childhood series) Breast Cancer Screening 2 2012 years Colon Cancer Screening 10 2012 yrs Influenza Vaccine 12/31/2020 01/25/2020, 01/20/2019 Pneumococcal Vaccine: 65+ 10/16/2027 06/26/2016 Years (2 of 2 - PPSV23) Pneumococcal Vaccine: 10/16/2027 06/26/2016 Pediatrics (0 to 5 Years) and At-Risk Patients (6 to 64 Years) (2 of 2 - PPSV23) Hepatitis B Vaccines Aged Out 01/25/1999, No longer eligible based on patient's age to 08/24/1998, complete this topic 07/27/1998 MMR Vaccines Completed 01/10/2012 HIB Vaccines Aged Out No longer eligible based on patient's age to complete this topic Hepatitis A Vaccines Aged Out No longer eligibl e based on patient's age to complete this topic IPV Vaccines Aged Out No longer eligible based on patient's age to complete this topic documented as of this encounter Results Not on filedocumented in this encounter
--- OUTSIDE RECORDS SUMMARY | 2021-02-11 09:46 | CCD | Continuity of Care Document ---
Author Author Jose SOLIS MD Organization Unknown Address [address] [place] [id number] Phone [phone] Care Team Providers Care Instructor Pilot Name Role Phone Bijan Frederick MD AUTM [phone] Claudine Orosco AUTM Unavailable Problems Active Problems Provider Date Essential hypertension Randall Solis MD Onset: 11/30/2020 Social History Type Date Description Comments ETOH Use Denies alcohol use Tobacco Use Start: Unknown End: Unknown Patient is a former smoker Recreational Drug Use Denies Drug Use Allergies, Adverse Reactions, Alerts Description No Known Drug Allergies Medications Active Medications SIG Qnty Indications Ordering Provide r Date Neomycin Sulfate 500mg Tablets ii tabs 3 times as directed 6tabs Randall Solis MD 02/23/2020 Flagyl 500mg Tablets i tab three times as directed 3tabs Randall Solis MD 02/23/2020 Plenvu 140gm Solution Rec do not follow the directions on the box, follow the directions given to you by the doctor's office. 3packet Randall Solis MD 01/15/2020 Levothyroxine Sodium 100mcg Tablets Chula Geronimo MD Anoro Ellipta 62.5-25mcg/Inh Aeros ol Inhale One puff By Mouth Every Day Unknown Atenolol 25mg Tablets Take One Tablet By Mouth Every Day Unknown Buspirone HCL 10mg Tablets Take 1 Tablet By Mouth Twice A Day Unknown Omeprazole 20mg Capsules DR [place] Potassium Chloride ER 20Meq Tablets ER Jessie Pichardo PA Gabapentin 100mg Capsules Jessie Pichardo PA Diphenoxylate-Atropine 2.5-0.025mg Tablets Take 2Tabs.By Mouth 4 Times A Day as Needed For Diarrhea Max 8Ta bs/Day Unknown Colestipol HCL 1gm Tablets Take One Tablet By Mouth Three Times A Day Unknown Prochlorperazine Maleate 10mg Tablets Unknown Ondansetron HCL 4mg Tablets Unknown Immunizations Description No Information Available Vital Signs Date Vital Result Comment 12/29/2020 10:51am BP Systolic 111 mmHg BP Diastolic 80 mmHg Heart Rate 117 /min Body Temperature 98.4 F Respiratory Rate 12 /min Height 63 inches 5'3" Weight 149.00 lb BMI (Body Mass Index) 26.4 kg/m2 03/25/2020 10:18am BP Systolic 113 mmHg BP Diastolic 73 mmHg Heart Rate 90 /min Body Temperature 98.1 F Respiratory Rate 14 /min Height 63 inches 5'3" Weight 149.00 lb BMI (Body Mass Index) 26.4 kg/m2 Results Description No Information Available Procedures Description No Information Available Medical Devices Description No Information Available Encounters Description No Information Available Assessments Description No Information Available Plan of Treatment No Information Available Functional Status Functional Condition Comment Date Status Glasses Active Mental Status Description No Information Available Referrals Description No Information Available
--- OUTSIDE RECORDS SUMMARY | 2021-02-11 09:46 | CCD | Continuity of Care Document ---
Author Author Jose RMOO MD Organization Unknown Address [address] [facility], [address] [place] [address] Phone [phone] Care Team Providers Care Phys Asst Name Role Phone AUTM Unavailable Tobias Cage M.D. AUTM [phone] Claudine Orosco AUTM [phone] Problems Active Problems Provider Date History of polyp of colon Brent Romero M.D. 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 Sore throat symptom Cody Romo MD Onset: 12/01/2020 Disturbance in speech Cody Romo MD Onset: 12/01/2020 Social History Type Date Description Comments Sex Unknown ETOH Use Denies alcohol use Tobacco Use Start: Unknown Smokes 1/2 Pack A Day for 25 yea rs Recreational Drug Use Denies Drug Use Allergies, Adverse Reactions, Alerts Description No Known Drug Allergies Medications Active Medications SIG Qnty Indications Ordering Provide r Date Buspirone HCL 10mg Tablets 1 by mouth two times a day Unknown Levothyroxine Sodium 125mcg Tablet s 1 by mouth every day Unknown Anoro Ellipta 62.5-25mcg/Inh Aeros ol 1 puff every day Unknown Atenolol 25mg Tablets 1 by mouth every day Unknown Imodium A-D 2mg Capsules 1 tab by mouth as needed Unknown Colestipol HCL 1gm Tablets 1 by mouth every day Unknown Dronabinol 5mg Capsules 1 by mouth every day Unknown Omeprazole 20mg Capsules DR 1 by mouth twice a day Unknown Prochlorperazine Maleate 10mg Tabl ets 1 by mouth every 6 hours Unknown Gabapentin 100mg Capsules 2 by mouth three times a day Unknown Potassium Chloride ER 20Meq Tablet s ER 1 by mouth twice a day Unknown Ondansetron 4mg Tablets Dispers 1 by mouth every 6 hours as needed Unknown Immunizations Description No Information Available Vital Signs Date Vital Result Comment 12/23/2020 8:53am BP Systolic 102 mmHg BP Diastolic 80 mmHg Heart Rate 126 /min O2 % BldC Oximetry 97 % Height 63 inches 5'3" Weight 100.00 lb BMI (Body Mass Index) 17.7 kg/m2 [place] Body Weight 115 lb Weight 45.360 kg BSA (Body Surface Area) 1.44 m2 12/01/2020 10:52am BP Systolic 122 mmHg BP Diastolic 88 mmHg Heart Rate 95 /min O2 % BldC Oximetry 97 % Height 63 inches 5'3" Weight 101.00 lb BMI (Body Mass Index) 17.9 kg/m2 [place] Body Weight 115 lb Weight 45.814 kg BSA (Body Surface Area) 1.45 m2 Results Test Acquired Date Facility Test Result H/L Range Note Laboratory test finding 12/15/2020 [facility] [address] [place] [address] [id number] [phone] Non Data Control Assistant/Cytology Req For Servi (SEE NOTE) 1 Laboratory test finding 12/01/2020 [facility] [address] [place] [address] [id number] [phone] Pathology Request For Service (SEE NOTE) 2 Laboratory test finding 12/01/2020 [facility] [address] [place] [address] [id number] [phone] Non Data Control Assistant/Cytology Req For Servi (SEE NOTE) 3 1 SPECIMEN: FNA of right thyroid mass Specimen received in cytolyt-clear and Afirma SPECIMEN ADEQUACY: Satisfactory for evaluation but limited by lack of follicular/viable follicular cells CATEGORIZATION: No Malignancy identified, see comment DESCRIPTIONS: Necrotic debris including many neutrophils. No malignant tumor cells are noted COMMENTS: This may be a component of an infectious process or tumor, however no malignant cells noted. Hx of endometrial and colon carcinoma The case as well as previous FNA and cell block of FNA were sent to [facility] for consultation, they agree with the above findings. See consultation report [id number], scanned in EMR pathology module. 12/22/2020 - [address] (ASCP) 12/16/2020 0839 (Prelim) Signed Pavan Faustin MD 12/22/2020 0753 2 FINAL DIAGNOSIS Thyroid nodule, cell block: Mixed inflammatory cells. No epithelial cells identified for evaluation of carcinoma. See comment. COMMENT: There is no evidence for malignancy in this specimen. If clinically indicated and concern for malignancy persists, a re-biopsy is recommended. 12/03/2020 - 1458 CLINICAL DIAGNOSIS Right thyroid nodule 12/02/2020 - 1229 GROSS DIAGNOSIS Received in CytoLyt labeled "right thyroid nodule biopsy" for cell block. -SVY 12/02/2020 - 1229 Signed LIANNA KIRBY MD 12/03/2020 145 3 SPECIMEN: FNA of right thyroid nodule Specimen received in cytolyt-red SPECIMEN ADEQUACY: Unsatisfactory for evaluation CATEGORIZATION: DESCRIPTIONS: No follicular component in a background of abundant neutrophils, macrophages, and debris. 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 R47.02 Dysphasia R07.0 Pain in throat Office Visit 12/01/2020 10:45a [facility] Joyce Moore R47.02 Dysphasia R07.0 Pain in throat D44.0 Neoplasm of uncertain behavi or of thyroid gland Assessments Date Code Description Provider 12/23/2020 D44.0 Neoplasm of uncertain behavior o f thyroid gland Cody Romo MD 12/23/2020 R47.02 Dysphasia Cody Romo MD 12/23/2020 R07.0 Pain in throat Cody Romo MD 12/01/2020 R47.02 Dysphasia Cody Romo MD 12/01/2020 R07.0 Pain in throat Cody Romo MD 12/01/2020 D44.0 Neoplasm of uncertain behavior o f thyroid gland Cody Romo MD Plan of Treatment No Information Available Functional Status Description No Information Available Mental Status Description No Information Available Referrals Refer to Dr Reason for Referral Status Appt Date Dina Rowell MD Right thyroid mass Created 000 [address] [facility] [address] [place] [address] [phone]
--- OUTSIDE RECORDS SUMMARY | 2021-02-11 09:46 | CCD | Continuity of Care Document ---
Author Organization Unknown Address Unknown Phone Unavailable Care Team Providers Care Compactor Driver Name Role Phone Chula Geronimo MD - DM, Osteo & Endo CNT AUTM [phone] Claudine Orosco AUTM [phone] Problems Active Problems Provider Date Cruz syndrome [...] day 90tabs CLAIRE Pak JR 021 Nystatin 674198Srdb/ML Suspension 5 milliliters swish and spit four [...] CPT Code Status Date Vaccine Lot # [id number] Given 12/31/2017 Influenza Virus Vaccine, Quadrivalent ([id number]), Derived From 4 Given 01/11/2017 Influenza Vaccin e Quadrivalent Preser/Antibiotic Free Im Use [id number] Vital Signs Date Vital Result Comment 08/13/2020 [...] Result H/L Range Note Comprehensive Metabolic Profil 01/25/[address] [id number] [phone] Glucose, Fasting 95 mg/dL Normal 70-100 Blood [...] Low 3.2-5.2 Albumin/Globulin Ratio 0.8 Low 1.2-2.2 CBC With Differential 01/25/[address] [address] [phone] White Blood Count 3.4 10 Low 4.0-10.0 [...] 36.0-66.0 Lymph % 21.4 % Low 24.0-44.0 [place] % 14.8 % High 2.0-8.0 Eos % 2.1 % Normal 0.0-3.0 Baso % 1.5 % High 0.0-1.0 Immature Granulocyte % 0.3 % Normal 0-3.0 Nucleated Red Blood Cell % 0.0 % Normal 0-0 Neutrophils # 2.0 10 Normal 1.5-8.5 Lymph # 0.7 10 Low 1.5-5.0 [place] # 0.5 10 Normal 0.0-0.8 Eos # 0.1 10 Normal 0.0-0.5 Baso # 0.1 10 Normal 0.0-0.2 Laboratory test finding 01/18/[address] [place] [address] [phone] Magnesium Level 1.7 mg/dL Low 1.8-2.4 Comprehensive Metabolic Profil 01/18/[address] [address] [phone] Glucose, Fasting 108 mg/dL High 70-100 Blood Urea Nitrogen 4 mg/dL Low 7-18 Creatinine For GFR 0.62 mg/dL Normal 0.55-1.30 Glomerular Filtration Rate > 60.0 Normal >51 2 Sodium Level 140 mEq/L Normal 136-145 Potassium [...] 0.7 Low 1.2-2.2 CBC With Differential 01/18/[address] [address] [phone] White Blood Count 4.6 10 Normal 4.0-10.0 [...] 36.0-66.0 Lymph % 18.9 % Low 24.0-44.0 [place] % 13.2 % High 2.0-8.0 Eos % 1.3 % Normal 0.0-3.0 Baso % 1.1 % High 0.0-1.0 Immature Granulocyte % 0.2 % Normal 0-3.0 Nucleated Red Blood Cell % 0.0 % Normal 0-0 Neutrophils # 3.0 10 Normal 1.5-8.5 Lymph # 0.9 10 Low 1.5-5.0 [place] # 0.6 10 Normal 0.0-0.8 Eos # 0.1 10 Normal 0.0-0.5 Baso # 0.1 10 Normal 0.0-0.2 CBC With Differential 01/11/[address] [address] [phone] White Blood Count 4.0 10 Normal 4.0-10.0 [...] 36.0-66.0 Lymph % 20.8 % Low 24.0-44.0 [place] % 13.9 % High 2.0-8.0 Eos % 1.5 % Normal 0.0-3.0 Baso % 0.7 % Normal 0.0-1.0 Immature Granulocyte % 0.2 % Normal 0-3.0 Nucleated Red Blood Cell % 0.0 % Normal 0-0 Neutrophils # 2.5 10 Normal 1.5-8.5 Lymph # 0.8 10 Low 1.5-5.0 [place] # 0.6 10 Normal 0.0-0.8 Eos # 0.1 10 Normal 0.0-0.5 Baso # 0.0 10 Normal 0.0-0.2 Comprehensive Metabolic Profil 01/11/[address] [id number] [phone] Glucose, Fasting 108 mg/dL High 70-100 Blood [...] Low 1.2-2.2 Laboratory test finding 01/11/[address] [address] [phone] Magnesium Level 1.6 mg/dL Low 1.8-2.4 CBC With Differential 01/04/[address] [address] [phone] White Blood Count 5.2 10 Normal 4.0-10.0 [...] 36.0-66.0 Lymph % 20.8 % Low 24.0-44.0 [place] % 11.9 % High 2.0-8.0 Eos % 0.2 % Normal 0.0-3.0 Baso % 0.6 % Normal 0.0-1.0 Immature Granulocyte % 0.4 % Normal 0-3.0 Nucleated Red Blood Cell % 0.0 % Normal 0-0 Neutrophils # 3.5 10 Normal 1.5-8.5 Lymph # 1.1 10 Low 1.5-5.0 [place] # 0.6 10 Normal 0.0-0.8 Eos # 0.0 10 Normal 0.0-0.5 Baso # 0.0 10 Normal 0.0-0.2 Comprehensive Metabolic Profil 01/04/[address] [address] [phone] Glucose, Fasting 98 mg/dL Normal 70-100 Blood Urea Nitrogen 4 mg/dL Low 7-18 Creatinine For GFR 0.46 mg/dL Low 0.55-1.30 Glomerular Filtration Rate > 60.0 Normal >51 4 Sodium Level 139 mEq/L Normal 136-145 Potassium [...] 0.9 Low 1.2-2.2 Laboratory test finding 01/04/[address] [address] [phone] Magnesium Level 1.6 mg/dL Low 1.8-2.4 CA 125 145.7 U/ML High <30.2 5 Carcinoembryonic Antigen 5.2 NG/ML High <2.5 6 Laboratory test finding 11/30/[address] [address] [phone] Lipase 47 U/L Low 73-393 CBC With Differential 11/30/2020 [facility] [address] [place] [address] [phone] White Blood Count 15.2 10 High 4.0-10.0 [...] 36.0-66.0 Lymph % 7.3 % Low 24.0-44.0 [place] % 8.2 % High 2.0-8.0 Eos % 0.2 % Normal 0.0-3.0 Baso % 0.5 % Normal 0.0-1.0 Immature Granulocyte % 3.2 % High 0-3.0 Nucleated Red Blood Cell % 0.0 % Normal 0-0 Neutrophils # 12.2 10 High 1.5-8.5 Lymph # 1.1 10 Low 1.5-5.0 [place] # 1.3 10 High 0.0-0.8 Eos # 0.0 10 Normal 0.0-0.5 Baso # 0.1 10 Normal 0.0-0.2 Liver Profile 11/30/2020 [facility] nter [address] [place], [place] [phone] Ast/Sgot 19 U/L Normal 7-37 Alt/SGPT 22 U/L Normal 12-78 Alkaline Phosphatase 218 U/L High 45-117 Bilirubin,Total 1.2 mg/dL High 0.2-1.0 Bilirubin,Direct 0.5 mg/dL High 0.0-0.2 Total Protein 6.3 GM/DL Low 6.4-8.2 Albumin 2.9 GM/DL Low 3.2-5.2 Albumin/Globulin Ratio 0.9 Low 1.2-2.2 Cardiac Marker Panel 11/30/2020 [facility] enter [address] [place] [address] [phone] CPK Creatine Phosphokinase 18 U/L Low 26-19 2 CK-MB Value Mass < 1.0 NG/ML Normal <3.6 MB/CK Relative Index 5.56 High < Or =4 7 Troponin I < 0.02 NG/ML Normal < 0.10 8 Istat Chem8+ Panel 11/30/2020 [facility] nter [address] [place] [address] [phone] iSTAT HCT 46.0 % Normal 38.0-51.0 iSTAT Glucose 106 mg/dL High 70-105 iSTAT Sodium 136 mEq/L Normal 136-145 iSTAT Potassium 3.0 mEq/L Low 3.5-5.1 iSTAT CA++ 4.6 mg/dL Normal 4.5-5.3 iSTAT Chloride 92 mEq/L Low 98-109 iSTAT Co2 30.0 MM/L High 23.0-27.0 iSTAT BUN 4 mg/dL Low 8-26 iSTAT Creatinine 0.4 mg/dL Low 0.6-1.3 Basic Metabolic Profile 09/24/[address] [address] [phone] Glucose, Fasting 93 mg/dL Normal 70-100 Blood Urea Nitrogen 4 mg/dL Low 7-18 Creatinine For GFR 0.52 mg/dL Low 0.55-1.30 Glomerular Filtration Rate > 60.0 Normal >51 9 Sodium Level 142 mEq/L Normal 136-145 Potassium Serum 3.6 mEq/L Normal 3.5-5.1 Chloride Level 104 mEq/L Normal 98-107 Carbon Dioxide Level 33 mEq/L High 21-32 Anion Gap 5 mEq/L Low 8-16 Calcium Level 9.3 mg/dL Normal 8.5-10.1 Laboratory test finding 09/24/2020 [facility] [address] [place] [phone] Phosphorus Level 3.6 mg/dL Normal 2.5-4.9 Magnesium Level 1.9 mg/dL Normal 1.8-2.4 CBC With Differential 09/24/[address] [id number] [phone] White Blood Count 7.0 10 Normal 4.0-10.0 [...] 36.0-66.0 Lymph % 14.8 % Low 24.0-44.0 [place] % 17.0 % High 2.0-8.0 Eos % 0.6 % Normal 0.0-3.0 Baso % 1.4 % High 0.0-1.0 Immature Granulocyte % 1.4 % Normal 0-3.0 Nucleated Red Blood Cell % 0.0 % Normal 0-0 Neutrophils # 4.5 10 Normal 1.5-8.5 Lymph # 1.0 10 Low 1.5-5.0 [place] # 1.2 10 High 0.0-0.8 Eos # 0.0 10 Normal 0.0-0.5 Baso # 0.1 10 Normal 0.0-0.2 Basic Metabolic Profile 09/17/[address] [id number] [phone] Glucose, Fasting 96 mg/dL Normal 70-100 Blood Urea Nitrogen 2 mg/dL Low 7-18 Creatinine For GFR 0.51 mg/dL Low 0.55-1.30 Glomerular Filtration Rate > 60.0 Normal >51 1 0 Sodium Level 143 mEq/L Normal 136-145 Potassium Serum 3.4 mEq/L Low 3.5-5.1 Chloride Level 107 mEq/L Normal 98-107 Carbon Dioxide Level 30 mEq/L Normal 21-32 Anion Gap 6 mEq/L Low 8-16 Calcium Level 9.0 mg/dL Normal 8.5-10.1 Basic Metabolic Profile 09/16/2020 [facility] [address] [place] [address] [phone] Glucose, Fasting 92 mg/dL Normal 70-100 Blood Urea Nitrogen 3 mg/dL Low 7-18 Creatinine For GFR 0.58 mg/dL Normal 0.55-1.30 Glomerular Filtration Rate > 60.0 Normal >51 1 1 Sodium Level 140 mEq/L Normal 136-145 Potassium Serum 3.4 mEq/L Low 3.5-5.1 Chloride Level 107 mEq/L Normal 98-107 Carbon Dioxide Level 30 mEq/L Normal 21-32 Anion Gap 3 mEq/L Low 8-16 Calcium Level 9.0 mg/dL Normal 8.5-10.1 Istat Chem8+ Panel 08/16/2020 [facility] nter [address] [place] [address] [phone] iSTAT HCT 42.0 % Normal 38.0-51.0 iSTAT Glucose 102 mg/dL Normal 70-105 iSTAT Sodium 137 mEq/L Normal 136-145 iSTAT Potassium 3.6 mEq/L Normal 3.5-5.1 iSTAT CA++ 4.4 mg/dL Low 4.5-5.3 iSTAT Chloride 96 mEq/L Low 98-109 iSTAT Co2 35.0 MM/L High 23.0-27.0 iSTAT BUN 8 mg/dL Normal 8-26 iSTAT Creatinine 0.8 mg/dL Normal 0.6-1.3 CBC With Differential 08/16/[address] [address] [phone] White Blood Count 12.8 10 High 4.0-10.0 [...] 36.0-66.0 Lymph % 10.8 % Low 24.0-44.0 [place] % 10.2 % High 2.0-8.0 Eos % 0.1 % Normal 0.0-3.0 Baso % 0.6 % Normal 0.0-1.0 Immature Granulocyte % 3.4 % High 0-3.0 Nucleated Red Blood Cell % 0.2 % High 0-0 Neutrophils # 9.6 10 High 1.5-8.5 Lymph # 1.4 10 Low 1.5-5.0 [place] # 1.3 10 High 0.0-0.8 Eos # 0.0 10 Normal 0.0-0.5 Baso # 0.1 10 Normal 0.0-0.2 Cardiac Marker Panel 08/16/2020 [facility] enter [address] [place] [address] [phone] CPK Creatine Phosphokinase 39 U/L Normal 26-19 2 CK-MB Value Mass < 1.0 NG/ML Normal <3.6 MB/CK Relative Index 2.56 Normal < Or =4 12 Troponin I < 0.02 NG/ML Normal < 0.10 13 Liver Profile 08/16/2020 [facility] nter [address] [place] [address] [phone] Ast/Sgot 32 U/L Normal 7-37 Alt/SGPT 18 U/L Normal 12-78 Alkaline Phosphatase 142 U/L High 45-117 Bilirubin,Total 0.9 mg/dL Normal 0.2-1.0 Bilirubin,Direct 0.3 mg/dL High 0.0-0.2 Total Protein 6.2 GM/DL Low 6.4-8.2 Albumin 3.1 GM/DL Low 3.2-5.2 Albumin/Globulin Ratio 1.0 Low 1.2-2.2 Laboratory test finding 08/16/2020 [facility] [address] [place] [address] [phone] Magnesium Level 2.2 mg/dL Normal 1.8-2.4 Lipase 48 U/L Low 73-393 Lipid Profile 08/13/2020 [facility] , Managing Consultant Clinical Professor: Dr Franklyn [place] [address] [phone] Cholesterol 110 mg/dL Low 131 - 200 Triglycerides 92 mg/dL 30 - 150 HDL Cholesterol 48 mg/dL 35 - 60 LDL (Calculated) 44 CALC Low 50 - 159 Laboratory test finding 08/13/2020 [facility], Managing Consultant Clinical Professor: Dr Franklyn [place] [address] [phone] Thyroid Stimulating Hormone 11.55 uIU/mL High 0. 36 - 3.74 Laboratory test finding 08/13/2020 [facility] is, Managing Consultant Clinical Professor: Dr Franklyn Gutierrez [place], [place] [id number] [phone] T4 Free 1.73 ng/dL High 0.76 - 1.46 1 Units are mL/min/1.73 m2 Chronic Kidney Disease Staging per NKF: Stage I & II GFR >=60 Normal to Mildly Decreased Stage III GFR 30-59 Moderately Decreased Stage IV GFR 15-29 Severely Decreased Stage V GFR <15 Very Little GFR Left ESRD GFR <15 on HEATER MECHANIC 2 Units are mL/min/1.73 m2 Chronic Kidney Disease Staging per NKF: Stage I & II GFR >=60 Normal to Mildly Decreased Stage III GFR 30-59 Moderately Decreased Stage IV GFR 15-29 Severely Decreased Stage V GFR <15 Very Little GFR Left ESRD GFR <15 on HEATER MECHANIC 3 Units are mL/min/1.73 m2 Chronic Kidney Disease Staging per NKF: Stage I & II GFR >=60 Normal to Mildly Decreased Stage III GFR 30-59 Moderately Decreased Stage IV GFR 15-29 Severely Decreased Stage V GFR <15 Very Little GFR Left ESRD GFR <15 on HEATER MECHANIC 4 Units are mL/min/1.73 m2 Chronic Kidney Disease Staging per NKF: Stage I & II GFR >=60 Normal to Mildly Decreased Stage III GFR 30-59 Moderately Decreased Stage IV GFR 15-29 Severely Decreased Stage V GFR <15 Very Little GFR Left ESRD GFR <15 on HEATER MECHANIC 5 THE CA 125 ASSAY IS PERFORME D ON THE [place] BY CHEMILUMINESCENCE AND SHOULD NOT BE COMPARED INTERCHANGEABLY WITH OTHER METHODS. IT SHOULD NOT BE USED ALONE A SCREENING TEST OR DIAGNOSIS FOR THE PRESENCE OR ABSENCE OF MALIGNANT DISEASE. PREDICTIONS OF DISEASE RECURRENCE SHOULD NOT BE BASED SOLELY ON VALUES OBTAINED FROM SERIAL PATIENT SERUM VALUES. 6 THE CEA ASSAY IS PERFORMED O N THE [employer] BY CHEMILUMINESCENCE AND SHOULD NOT BE COMPARED INTERCHANGEABLY WITH OTHER METHODS. IT SHOULD NOT BE USED ALONE A SCREENING TEST OR DIAGNOSIS FOR THE PRESENCE OR ABSENCE OF MALIGNANT DISEASE. PREDICTIONS OF DISEASE RECURRENCE SHOULD NOT BE BASED SOLELY ON VALUES OBTAINED FROM SERIAL PATIENT SERUM VALUES. 7 DIAGNOSIS CRITERIA MMB ng/ml Relative Index (RI) NON-AMI < or = 5 N/A [place] > 5 < or = 4 AMI > 5 > 4 8 Troponin I Reference Interva l for ULTRA Testing: 99th Percentile= 0.00-0.045 ng/ml Risk Stratification: <= 0.10 ng/ml Decreased Risk for Adverse Clinical Events. 0.10-1.50 ng/ml Increased Risk for Adv erse Clinical Events. Evaluation of additional criterion and/or repeat testing in 2-6 hours is suggested to rule out myocardial damage. >= 1.50 ng/ml Indicative of Myocardial Injury. 9 Units are mL/min/1.73 m2 Chronic Kidney Disease Staging per NKF: Stage I & II GFR >=60 Normal to Mildly Decreased Stage III GFR 30-59 Moderately Decreased Stage IV GFR 15-29 Severely Decreased Stage V GFR <15 Very Little GFR Left ESRD GFR <15 on HEATER MECHANIC 10 Units are mL/min/1.73 m2 Chronic Kidney Disease Staging per NKF: Stage I & II GFR >=60 Normal to Mildly Decreased Stage III GFR 30-59 Moderately Decreased Stage IV GFR 15-29 Severely Decreased Stage V GFR <15 Very Little GFR Left ESRD GFR <15 on HEATER MECHANIC 11 Units are mL/min/1.73 m2 Chronic Kidney Disease Staging per NKF: Stage I & II GFR >=60 Normal to Mildly Decreased Stage III GFR 30-59 Moderately Decreased Stage IV GFR 15-29 Severely Decreased Stage V GFR <15 Very Little GFR Left ESRD GFR <15 on HEATER MECHANIC 12 DIAGNOSIS CRITERIA MMB ng/ml Relative Index (RI) NON-AMI < or = 5 N/A [place] > 5 < or = 4 AMI > 5 > 4 13 Troponin I Reference Interva l for [employer]: 99th Percentile= 0.00-0.045 ng/ml Risk Stratification: <= 0.10 ng/ml Decreased Risk for Adverse Clinical Events. 0.10-1.50 ng/ml Increased Risk for Adv erse Clinical Events. Evaluation of additional criterion and/or repeat testing in 2-6 hours is suggested to rule out myocardial damage. >= 1.50 ng/ml Indicative of Myocardial Injury. Procedures Date Code Description Status 08/13/2020 57835 Office/Outpatient Established Mo d MDM 30-39 Min Completed 11/27/2017 [id number] Colonoscopy Completed 12/29/2011 [id number] Colonoscopy Completed 09/14/2008 [id number] Colonoscopy Completed Medical Devices Description No Information Available Encounters Type Date Location Provider Dx Diagnosis Office Visit 08/13/2020 10:40a [facility] CLAIRE Sosa JR C18.6 Malignant [...] 02/16/2021 11:00 am - DAV Morales at [facility] 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 oncology at this time, is undergoing [...] to Reason for Referral Status Appt Date [facility] Hematology/Oncology TRIM MACHINE ADJUSTER CONSULT FOR CRUZ SYNDROM E, COLON CANCER TRANSFER FROM [facility] Patient Notified 01/04/2021 [address] [place] [address] [phone]
--- OUTSIDE RECORDS SUMMARY | 2021-02-11 09:46 | CCD | Continuity of Care Document ---
Author Author Jose ROMO MD Organization Unknown Address [address] [facility], [address] [place] [address] Phone [phone] Care Team Providers Care Chain Maker Hand Name Role Phone AUTM Unavailable Tobias Cage M.D. AUTM [phone] Claudine Orosco AUTM [phone] Problems Active Problems Provider Date History of [...] lb BMI (Body Mass Index) 17.7 kg/m2 [place] Body Weight 115 lb Weight 45.360 kg BSA (Body Surface Area) 1.44 m2 12/01/2020 10:52am BP Systolic 122 mmHg BP Diastolic 88 mmHg Heart Rate 95 /min O2 % BldC Oximetry 97 % Height 63 inches 5'3" Weight 101.00 lb BMI (Body Mass Index) 17.9 kg/m2 [place] Body Weight 115 lb Weight 45.814 kg BSA (Body Surface Area) 1.45 m2 Results Test Acquired Date Facility Test Result H/L Range Note Laboratory test finding 12/15/2020 [facility] [address] [place] [address] [phone] Non [employer] Salesperson/Cytology Req For Servi (SEE NOTE) 1 Laboratory test finding 12/01/2020 [facility] [address] [place] [address] [phone] Pathology Request For Service (SEE NOTE) 2 Laboratory test finding 12/01/2020 [facility] [address] [place] [address] [id number] [phone] Non [employer] Salesperson/Cytology Req For Servi (SEE NOTE) 3 1 [...] cell block of FNA were sent to [facility] for consultation, they agree with the above findings. See consultation report [id number], scanned in EMR pathology module. 12/22/2020 - [...] - 1229 Signed LIANNA KIRBY MD 12/03/2020 1459 3 SPECIMEN: FNA of right thyroid nodule Specimen received in cytolyt-red SPECIMEN ADEQUACY: Unsatisfactory for evaluation CATEGORIZATION: DESCRIPTIONS: No follicular component in a background of abundant neutrophils, macrophages, and debris. 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 We will evaluate availability with both of these hospitals. She is happy to follow this plan to get a definite answer. * R47.02 Dysphasia* Comments:* Although this has gotten slightly better, it is not completely resolved. It is presenting a safety concern when she is choking on pills and food. * R07.0 Pain in throat Functional Status Description No Information Available Mental Status Description No Information Available Referrals Description No Information Available
--- OUTSIDE RECORDS SUMMARY | 2021-02-11 09:46 | CCD | Continuity of Care Document ---
Author Organization Unknown Address Unknown Phone Unavailable Care Team Providers Care Family Resource Management Specialist Name Role Phone Chula Geronimo MD - DM, Osteo & Endo CNT AUTM [phone] Claudine Orosco AUTM [phone] Problems Active Problems Provider Date Cruz syndrome [...] day 90tabs CLAIRE Pak JR 021 Nystatin 023403Hkix/ML Suspension 5 milliliters swish and spit four [...] CPT Code Status Date Vaccine Lot # [id number] Given 12/31/2017 Influenza Virus Vaccine, Quadrivalent (Cciiv4), Derived From 3 Given 01/11/2017 Influenza Vaccin e Quadrivalent Preser/Antibiotic Free Im Use [id number] Vital Signs Date Vital Result Comment 08/13/2020 [...] Range Note Comprehensive Metabolic Profil 01/18/[address] [phone] Glucose, Fasting 108 mg/dL High 70-100 Blood [...] Low 1.2-2.2 CBC With Differential 01/18/[address] [address] [phone] White Blood Count 4.6 10 Normal 4.0-10.0 [...] 36.0-66.0 Lymph % 18.9 % Low 24.0-44.0 [place] % 13.2 % High 2.0-8.0 Eos % 1.3 % Normal 0.0-3.0 Baso % 1.1 % High 0.0-1.0 Immature Granulocyte % 0.2 % Normal 0-3.0 Nucleated Red Blood Cell % 0.0 % Normal 0-0 Neutrophils # 3.0 10 Normal 1.5-8.5 Lymph # 0.9 10 Low 1.5-5.0 Mckinley # 0.6 10 Normal 0.0-0.8 Eos # 0.1 10 Normal 0.0-0.5 Baso # 0.1 10 Normal 0.0-0.2 Laboratory test finding 01/18/[address] [place] [address] [phone] Magnesium Level 1.7 mg/dL Low 1.8-2.4 CBC With Differential 01/11/[address] [address] [phone] White Blood Count 4.0 10 Normal 4.0-10.0 [...] 36.0-66.0 Lymph % 20.8 % Low 24.0-44.0 Mck[place]ley % 13.9 % High 2.0-8.0 Eos % 1.5 % Normal 0.0-3.0 Baso % 0.7 % Normal 0.0-1.0 Immature Granulocyte % 0.2 % Normal 0-3.0 Nucleated Red Blood Cell % 0.0 % Normal 0-0 Neutrophils # 2.5 10 Normal 1.5-8.5 Lymph # 0.8 10 Low 1.5-5.0 Mckinley # 0.6 10 Normal 0.0-0.8 Eos # 0.1 10 Normal 0.0-0.5 Baso # 0.0 10 Normal 0.0-0.2 Comprehensive Metabolic Profil 01/11/[address] [address] [phone] Glucose, Fasting 108 mg/dL High 70-100 Blood [...] 0.7 Low 1.2-2.2 Laboratory test finding 01/11/[address] [address] [phone] Magnesium Level 1.6 mg/dL Low 1.8-2.4 CBC With Differential 01/04/[address] [address] [phone] White Blood Count 5.2 10 Normal 4.0-10.0 [...] 36.0-66.0 Lymph % 20.8 % Low 24.0-44.0 Mckinley % 11.9 % High 2.0-8.0 Eos % 0.2 % Normal 0.0-3.0 Baso % 0.6 % Normal 0.0-1.0 Immature Granulocyte % 0.4 % Normal 0-3.0 Nucleated Red Blood Cell % 0.0 % Normal 0-0 Neutrophils # 3.5 10 Normal 1.5-8.5 Lymph # 1.1 10 Low 1.5-5.0 Mckinley # 0.6 10 Normal 0.0-0.8 Eos # 0.0 10 Normal 0.0-0.5 Baso # 0.0 10 Normal 0.0-0.2 Comprehensive Metabolic Profil 01/04/[address] [address] [phone] Glucose, Fasting 98 mg/dL Normal 70-100 Blood [...] 0.9 Low 1.2-2.2 Laboratory test finding 01/04/[address] [address] [phone] Magnesium Level 1.6 mg/dL Low 1.8-2.4 CA 125 145.7 U/ML High <30.2 4 Carcinoembryonic Antigen 5.2 NG/ML High <2.5 5 CBC With Differential 11/30/[address] [address] [phone] White Blood Count 15.2 10 High 4.0-10.0 [...] 36.0-66.0 Lymph % 7.3 % Low 24.0-44.0 Mck[place] % 8.2 % High 2.0-8.0 Eos % 0.2 % Normal 0.0-3.0 Baso % 0.5 % Normal 0.0-1.0 Immature Granulocyte % 3.2 % High 0-3.0 Nucleated Red Blood Cell % 0.0 % Normal 0-0 Neutrophils # 12.2 10 High 1.5-8.5 Lymph # 1.1 10 Low 1.5-5.0 Mckinley # 1.3 10 High 0.0-0.8 Eos # 0.0 10 Normal 0.0-0.5 Baso # 0.1 10 Normal 0.0-0.2 Laboratory test finding 11/30/2020 [facility] [address] [place] [address] [phone] Lipase 47 U/L Low 73-393 Liver Profile 11/30/2020 [facility] nter [address] [place] [address] [phone] Ast/Sgot 19 U/L Normal 7-37 Alt/SGPT 22 U/L Normal 12-78 Alkaline Phosphatase 218 U/L High 45-117 Bilirubin,Total 1.2 mg/dL High 0.2-1.0 Bilirubin,Direct 0.5 mg/dL High 0.0-0.2 Total Protein 6.3 GM/DL Low 6.4-8.2 Albumin 2.9 GM/DL Low 3.2-5.2 Albumin/Globulin Ratio 0.9 Low 1.2-2.2 Cardiac Marker Panel 11/30/2020 [facility] enter [address] [place] [address] [phone] CPK Creatine Phosphokinase 18 U/L Low 26-19 2 CK-MB Value Mass < 1.0 NG/ML Normal <3.6 MB/CK Relative Index 5.56 High < Or =4 6 Troponin I < 0.02 NG/ML Normal < 0.10 7 Istat Chem8+ Panel 11/30/2020 [facility] nter [address] [place] [phone] iSTAT HCT 46.0 % Normal 38.0-51.0 iSTAT Glucose 106 mg/dL High 70-105 iSTAT Sodium 136 mEq/L Normal 136-145 iSTAT Potassium 3.0 mEq/L Low 3.5-5.1 iSTAT CA++ 4.6 mg/dL Normal 4.5-5.3 iSTAT Chloride 92 mEq/L Low 98-109 iSTAT Co2 30.0 MM/L High 23.0-27.0 iSTAT BUN 4 mg/dL Low 8-26 iSTAT Creatinine 0.4 mg/dL Low 0.6-1.3 Basic Metabolic Profile 09/24/[address] [address] [phone] Glucose, Fasting 93 mg/dL Normal 70-100 Blood [...] mg/dL Normal 8.5-10.1 Laboratory test finding 09/24/[address] [address] [phone] Phosphorus Level 3.6 mg/dL Normal 2.5-4.9 Magnesium Level 1.9 mg/dL Normal 1.8-2.4 CBC With Differential 09/24/[address] [address] [phone] White Blood Count 7.0 10 Normal 4.0-10.0 [...] 36.0-66.0 Lymph % 14.8 % Low 24.0-44.0 Mck[place] % 17.0 % High 2.0-8.0 Eos % 0.6 % Normal 0.0-3.0 Baso % 1.4 % High 0.0-1.0 Immature Granulocyte % 1.4 % Normal 0-3.0 Nucleated Red Blood Cell % 0.0 % Normal 0-0 Neutrophils # 4.5 10 Normal 1.5-8.5 Lymph # 1.0 10 Low 1.5-5.0 Mck[place] # 1.2 10 High 0.0-0.8 Eos # 0.0 10 Normal 0.0-0.5 Baso # 0.1 10 Normal 0.0-0.2 Basic Metabolic Profile 09/17/[address] [phone] Glucose, Fasting 96 mg/dL Normal 70-100 Blood [...] mg/dL Normal 8.5-10.1 Basic Metabolic Profile 09/16/[address] [phone] Glucose, Fasting 92 mg/dL Normal 70-100 Blood [...] mg/dL Normal 8.5-10.1 Istat Chem8+ Panel 08/16/2020 [facility] nter [address] [place], [place] [phone] iSTAT HCT 42.0 % Normal 38.0-51.0 iSTAT Glucose 102 mg/dL Normal 70-105 iSTAT Sodium 137 mEq/L Normal 136-145 iSTAT Potassium 3.6 mEq/L Normal 3.5-5.1 iSTAT CA++ 4.4 mg/dL Low 4.5-5.3 iSTAT Chloride 96 mEq/L Low 98-109 iSTAT Co2 35.0 MM/L High 23.0-27.0 iSTAT BUN 8 mg/dL Normal 8-26 iSTAT Creatinine 0.8 mg/dL Normal 0.6-1.3 CBC With Differential 08/16/2020 [facility] [address] [place] [address] [phone] White Blood Count 12.8 10 High 4.0-10.0 [...] 36.0-66.0 Lymph % 10.8 % Low 24.0-44.0 Mckinley % 10.2 % High 2.0-8.0 Eos % 0.1 % Normal 0.0-3.0 Baso % 0.6 % Normal 0.0-1.0 Immature Granulocyte % 3.4 % High 0-3.0 Nucleated Red Blood Cell % 0.2 % High 0-0 Neutrophils # 9.6 10 High 1.5-8.5 Lymph # 1.4 10 Low 1.5-5.0 Mck[place]ley # 1.3 10 High 0.0-0.8 Eos # 0.0 10 Normal 0.0-0.5 Baso # 0.1 10 Normal 0.0-0.2 Cardiac Marker Panel 08/16/2020 [facility] enter [address] [place] [id number] [phone] CPK Creatine Phosphokinase 39 U/L Normal 26-19 2 CK-MB Value Mass < 1.0 NG/ML Normal <3.6 MB/CK Relative Index 2.56 Normal < Or =4 11 Troponin I < 0.02 NG/ML Normal < 0.10 12 Liver Profile 08/16/2020 [facility] nter [address] [place] [address] [phone] Ast/Sgot 32 U/L Normal 7-37 Alt/SGPT 18 U/L Normal 12-78 Alkaline Phosphatase 142 U/L High 45-117 Bilirubin,Total 0.9 mg/dL Normal 0.2-1.0 Bilirubin,Direct 0.3 mg/dL High 0.0-0.2 Total Protein 6.2 GM/DL Low 6.4-8.2 Albumin 3.1 GM/DL Low 3.2-5.2 Albumin/Globulin Ratio 1.0 Low 1.2-2.2 Laboratory test finding 08/16/2020 [facility] [address] [place] [address] [phone] Magnesium Level 2.2 mg/dL Normal 1.8-2.4 Lipase 48 U/L Low 73-393 Lipid Profile 08/13/2020 [facility] Analytics Architect: [place] [address] [phone] Cholesterol 110 mg/dL Low 131 - 200 Triglycerides 92 mg/dL 30 - 150 HDL Cholesterol 48 mg/dL 35 - 60 LDL (Calculated) 44 CALC Low 50 - 159 Laboratory test finding 08/13/2020 [facility] Analytics Architect: [place] [address] [phone] Thyroid Stimulating Hormone 11.55 uIU/mL High 0. 36 - 3.74 Laboratory test finding 08/13/2020 [facility] Analytics Architect: [place] [address] [phone] T4 Free 1.73 ng/dL High 0.76 - 1.46 1 Units are mL/min/1.73 m2 Chronic Kidney Disease Staging per NKF: Stage I & II GFR >=60 Normal to Mildly Decreased Stage III GFR 30-59 Moderately Decreased Stage IV GFR 15-29 Severely Decreased Stage V GFR <15 Very Little GFR Left ESRD GFR <15 on SKEIN SPOOLER 2 Units are mL/min/1.73 m2 Chronic Kidney Disease Staging per NKF: Stage I & II GFR >=60 Normal to Mildly Decreased Stage III GFR 30-59 Moderately Decreased Stage IV GFR 15-29 Severely Decreased Stage V GFR <15 Very Little GFR Left ESRD GFR <15 on SKEIN SPOOLER 3 Units are mL/min/1.73 m2 Chronic Kidney Disease Staging per NKF: Stage I & II GFR >=60 Normal to Mildly Decreased Stage III GFR 30-59 Moderately Decreased Stage IV GFR 15-29 Severely Decreased Stage V GFR <15 Very Little GFR Left ESRD GFR <15 on SKEIN SPOOLER 4 THE CA 125 ASSAY IS PERFORME D ON THE [employer] Pictures[employer] BY CHEMILUMINESCENCE AND SHOULD NOT BE COMPARED INTERCHANGEABLY WITH OTHER METHODS. IT SHOULD NOT BE USED ALONE A SCREENING TEST OR DIAGNOSIS FOR THE PRESENCE OR ABSENCE OF MALIGNANT DISEASE. PREDICTIONS OF DISEASE RECURRENCE SHOULD NOT BE BASED SOLELY ON VALUES OBTAINED FROM SERIAL PATIENT SERUM VALUES. 5 THE CEA ASSAY IS PERFORMED O N THE [employer] BY CHEMILUMINESCENCE AND SHOULD NOT BE COMPARED [...] Troponin I Reference Interva l for Siemens kontoblick LOCI: 99th Percentile= 0.00-0.045 ng/ml Risk Stratification: [...] Little GFR Left ESRD GFR <15 on SKEIN SPOOLER 9 Units are mL/min/1.73 m2 Chronic Kidney Disease Staging per NKF: Stage I & II GFR >=60 Normal to Mildly Decreased Stage III GFR 30-59 Moderately Decreased Stage IV GFR 15-29 Severely Decreased Stage V GFR <15 Very Little GFR Left ESRD GFR <15 on SKEIN SPOOLER 10 Units are mL/min/1.73 m2 Chronic Kidney Disease Staging per NKF: Stage I & II GFR >=60 Normal to Mildly Decreased Stage III GFR 30-59 Moderately Decreased Stage IV GFR 15-29 Severely Decreased Stage V GFR <15 Very Little GFR Left ESRD GFR <15 on SKEIN SPOOLER 11 DIAGNOSIS CRITERIA MMB ng/ml Relative Index (RI) NON-AMI < or = 5 N/A [place]IL[place] ZONE > 5 < or = 4 AMI > 5 > 4 12 Troponin I Reference Interva l for Siemens kontoblick LOCI: 99th Percentile= 0.00-0.045 ng/ml Risk Stratification: <= 0.10 ng/ml Decreased Risk for Adverse Clinical Events. 0.10-1.50 ng/ml Increased Risk for Adv erse Clinical Events. Evaluation of additional criterion and/or repeat testing in 2-6 hours is suggested to rule out myocardial damage. >= 1.50 ng/ml Indicative of Myocardial Injury. Procedures Date Code Description Status 08/13/2020 24082 Office/Outpatient Established Mo d MDM 30-39 Min Completed 11/27/2017 [id number] Colonoscopy Completed 12/29/2011 [id number] Colonoscopy Completed 09/14/2008 [id number] Colonoscopy Completed Medical Devices Description No Information Available Encounters Type Date Location Provider Dx Diagnosis [facility] Visit [facility] 10[facility] C18.6 Malignant [...] 02/16/2021 11:00 am - DAV Morales at [facility] 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
--- OUTSIDE RECORDS SUMMARY | 2021-02-11 09:46 | CCD | Continuity of Care Document ---
Author Organization Unknown Address Unknown Phone Unavailable Care Team Providers Care Electrical Products Sales Engineer Name Role Phone Chula Geronimo MD - DM, Osteo & Endo CNT AUTM [phone] Claudine Orosco AUTM [phone] Problems Active Problems Provider Date Cruz syndrome [...] day 90tabs CLAIRE Pak JR 021 Nystatin 254139Sthk/ML Suspension 5 milliliters swish and spit four [...] CPT Code Status Date Vaccine Lot # [id number] Given 12/31/2017 Influenza Virus Vaccine, Quadrivalent ([id number]), Derived From 1 Given 01/11/2017 Influenza Vaccin e Quadrivalent Preser/Antibiotic Free Im Use [id number] Vital Signs Date Vital Result Comment 08/13/2020 [...] Result H/L Range Note Comprehensive Metabolic Profil 01/04/[address] [id number] [phone] Glucose, Fasting 98 mg/dL Normal 70-100 Blood Urea Nitrogen 4 mg/dL Low 7-18 Creatinine For GFR 0.46 mg/dL Low 0.55-1.30 Glomerular Filtration Rate > 60.0 Normal >51 1 Sodium Level 139 mEq/L Normal 136-145 Potassium [...] 0.9 Low 1.2-2.2 Laboratory test finding 01/04/[address] [address] [phone] Magnesium Level 1.6 mg/dL Low 1.8-2.4 CA 125 145.7 U/ML High <30.2 2 Carcinoembryonic Antigen 5.2 NG/ML High <2.5 3 CBC With Differential 01/04/[address] [address] [phone] White Blood Count 5.2 10 Normal 4.0-10.0 [...] 36.0-66.0 Lymph % 20.8 % Low 24.0-44.0 Nash % 11.9 % High 2.0-8.0 Eos % 0.2 % Normal 0.0-3.0 Baso % 0.6 % Normal 0.0-1.0 Immature Granulocyte % 0.4 % Normal 0-3.0 Nucleated Red Blood Cell % 0.0 % Normal 0-0 Neutrophils # 3.5 10 Normal 1.5-8.5 Lymph # 1.1 10 Low 1.5-5.0 Nash # 0.6 10 Normal 0.0-0.8 Eos # 0.0 10 Normal 0.0-0.5 Baso # 0.0 10 Normal 0.0-0.2 Istat Chem8+ Panel 11/30/2020 [facility] nter [address] [place] [address] [phone] iSTAT HCT 46.0 % Normal 38.0-51.0 iSTAT Glucose 106 mg/dL High 70-105 iSTAT Sodium 136 mEq/L Normal 136-145 iSTAT Potassium 3.0 mEq/L Low 3.5-5.1 iSTAT CA++ 4.6 mg/dL Normal 4.5-5.3 iSTAT Chloride 92 mEq/L Low 98-109 iSTAT Co2 30.0 MM/L High 23.0-27.0 iSTAT BUN 4 mg/dL Low 8-26 iSTAT Creatinine 0.4 mg/dL Low 0.6-1.3 Cardiac Marker Panel 11/30/2020 [facility] enter [address] [place] [address] [phone] CPK Creatine Phosphokinase 18 U/L Low 26-19 2 CK-MB Value Mass < 1.0 NG/ML Normal <3.6 MB/CK Relative Index 5.56 High < Or =4 4 Troponin I < 0.02 NG/ML Normal < 0.10 5 Liver Profile 11/30/2020 [facility] nter [address] [place] [address] [phone] Ast/Sgot 19 U/L Normal 7-37 Alt/SGPT 22 U/L Normal 12-78 Alkaline Phosphatase 218 U/L High 45-117 Bilirubin,Total 1.2 mg/dL High 0.2-1.0 Bilirubin,Direct 0.5 mg/dL High 0.0-0.2 Total Protein 6.3 GM/DL Low 6.4-8.2 Albumin 2.9 GM/DL Low 3.2-5.2 Albumin/Globulin Ratio 0.9 Low 1.2-2.2 Laboratory test finding 11/30/2020 [facility] [address] [place] [address] [phone] Lipase 47 U/L Low 73-393 CBC With Differential 11/30/2020 [place] [address] [place] [address] [phone] White Blood Count 15.2 10 High 4.0-10.0 [...] 36.0-66.0 Lymph % 7.3 % Low 24.0-44.0 Nash % 8.2 % High 2.0-8.0 Eos % 0.2 % Normal 0.0-3.0 Baso % 0.5 % Normal 0.0-1.0 Immature Granulocyte % 3.2 % High 0-3.0 Nucleated Red Blood Cell % 0.0 % Normal 0-0 Neutrophils # 12.2 10 High 1.5-8.5 Lymph # 1.1 10 Low 1.5-5.0 Nash # 1.3 10 High 0.0-0.8 Eos # 0.0 10 Normal 0.0-0.5 Baso # 0.1 10 Normal 0.0-0.2 CBC With Differential 09/24/[address] [address] [phone] White Blood Count 7.0 10 Normal 4.0-10.0 [...] 36.0-66.0 Lymph % 14.8 % Low 24.0-44.0 Nash % 17.0 % High 2.0-8.0 Eos % 0.6 % Normal 0.0-3.0 Baso % 1.4 % High 0.0-1.0 Immature Granulocyte % 1.4 % Normal 0-3.0 Nucleated Red Blood Cell % 0.0 % Normal 0-0 Neutrophils # 4.5 10 Normal 1.5-8.5 Lymph # 1.0 10 Low 1.5-5.0 Nash # 1.2 10 High 0.0-0.8 Eos # 0.0 10 Normal 0.0-0.5 Baso # 0.1 10 Normal 0.0-0.2 Laboratory test finding 09/24/[address] [address] [phone] Phosphorus Level 3.6 mg/dL Normal 2.5-4.9 Magnesium Level 1.9 mg/dL Normal 1.8-2.4 Basic Metabolic Profile 09/24/[address] [id number] [phone] Glucose, Fasting 93 mg/dL Normal 70-100 Blood Urea Nitrogen 4 mg/dL Low 7-18 Creatinine For GFR 0.52 mg/dL Low 0.55-1.30 Glomerular Filtration Rate > 60.0 Normal >51 6 Sodium Level 142 mEq/L Normal 136-145 Potassium Serum 3.6 mEq/L Normal 3.5-5.1 Chloride Level 104 mEq/L Normal 98-107 Carbon Dioxide Level 33 mEq/L High 21-32 Anion Gap 5 mEq/L Low 8-16 Calcium Level 9.3 mg/dL Normal 8.5-10.1 Basic Metabolic Profile 09/17/[address] [address] [phone] Glucose, Fasting 96 mg/dL Normal 70-100 Blood Urea Nitrogen 2 mg/dL Low 7-18 Creatinine For GFR 0.51 mg/dL Low 0.55-1.30 Glomerular Filtration Rate > 60.0 Normal >51 7 Sodium Level 143 mEq/L Normal 136-145 Potassium Serum 3.4 mEq/L Low 3.5-5.1 Chloride Level 107 mEq/L Normal 98-107 Carbon Dioxide Level 30 mEq/L Normal 21-32 Anion Gap 6 mEq/L Low 8-16 Calcium Level 9.0 mg/dL Normal 8.5-10.1 Basic Metabolic Profile 09/16/[address] [address] [phone] Glucose, Fasting 92 mg/dL Normal 70-100 Blood Urea Nitrogen 3 mg/dL Low 7-18 Creatinine For GFR 0.58 mg/dL Normal 0.55-1.30 Glomerular Filtration Rate > 60.0 Normal >51 8 Sodium Level 140 mEq/L Normal 136-145 Potassium Serum 3.4 mEq/L Low 3.5-5.1 Chloride Level 107 mEq/L Normal 98-107 Carbon Dioxide Level 30 mEq/L Normal 21-32 Anion Gap 3 mEq/L Low 8-16 Calcium Level 9.0 mg/dL Normal 8.5-10.1 Istat Chem8+ Panel 08/16/2020 [facility] nter [address] [place] [address] [phone] iSTAT HCT 42.0 % Normal 38.0-51.0 iSTAT Glucose 102 mg/dL Normal 70-105 iSTAT Sodium 137 mEq/L Normal 136-145 iSTAT Potassium 3.6 mEq/L Normal 3.5-5.1 iSTAT CA++ 4.4 mg/dL Low 4.5-5.3 iSTAT Chloride 96 mEq/L Low 98-109 iSTAT Co2 35.0 MM/L High 23.0-27.0 iSTAT BUN 8 mg/dL Normal 8-26 iSTAT Creatinine 0.8 mg/dL Normal 0.6-1.3 CBC With Differential 08/16/[address] [address] [phone] White Blood Count 12.8 10 High 4.0-10.0 [...] 36.0-66.0 Lymph % 10.8 % Low 24.0-44.0 Nash % 10.2 % High 2.0-8.0 Eos % 0.1 % Normal 0.0-3.0 Baso % 0.6 % Normal 0.0-1.0 Immature Granulocyte % 3.4 % High 0-3.0 Nucleated Red Blood Cell % 0.2 % High 0-0 Neutrophils # 9.6 10 High 1.5-8.5 Lymph # 1.4 10 Low 1.5-5.0 Nash # 1.3 10 High 0.0-0.8 Eos # 0.0 10 Normal 0.0-0.5 Baso # 0.1 10 Normal 0.0-0.2 Cardiac Marker Panel 08/16/2020 [facility] enter [address] [place] [address] [phone] CPK Creatine Phosphokinase 39 U/L Normal 26-19 2 CK-MB Value Mass < 1.0 NG/ML Normal <3.6 MB/CK Relative Index 2.56 Normal < Or =4 9 Troponin I < 0.02 NG/ML Normal < 0.10 10 Liver Profile 08/16/2020 [facility] nter [address] [place] [address] [phone] Ast/Sgot 32 U/L Normal 7-37 Alt/SGPT 18 U/L Normal 12-78 Alkaline Phosphatase 142 U/L High 45-117 Bilirubin,Total 0.9 mg/dL Normal 0.2-1.0 Bilirubin,Direct 0.3 mg/dL High 0.0-0.2 Total Protein 6.2 GM/DL Low 6.4-8.2 Albumin 3.1 GM/DL Low 3.2-5.2 Albumin/Globulin Ratio 1.0 Low 1.2-2.2 Laboratory test finding 08/16/2020 [facility] [address] [place] [address] [phone] Magnesium Level 2.2 mg/dL Normal 1.8-2.4 Lipase 48 U/L Low 73-393 Lipid Profile 08/13/2020 [facility] Clinical Documentation Developer: Dr Franklyn Gutierrez [place], [place] [id number] [phone] Cholesterol 110 mg/dL Low 131 - 200 Triglycerides 92 mg/dL 30 - 150 HDL Cholesterol 48 mg/dL 35 - 60 LDL (Calculated) 44 CALC Low 50 - 159 Laboratory test finding 08/13/2020 [facility], Clinical Documentation Developer: [place] [address] [phone] Thyroid Stimulating Hormone 11.55 uIU/mL High 0. 36 - 3.74 Laboratory test finding 08/13/2020 [facility], Clinical Documentation Developer: [place] [address] [phone] T4 Free 1.73 ng/dL High 0.76 - 1.46 1 Units are mL/min/1.73 m2 Chronic Kidney Disease Staging per NKF: Stage I & II GFR >=60 Normal to Mildly Decreased Stage III GFR 30-59 Moderately Decreased Stage IV GFR 15-29 Severely Decreased Stage V GFR <15 Very Little GFR Left ESRD GFR <15 on PROCESS SAFETY ENGINEERING TECHNOLOGIST 2 THE CA 125 ASSAY IS PERFORME D ON THE [employer] BY CHEMILUMINESCENCE AND SHOULD NOT BE COMPARED INTERCHANGEABLY WITH OTHER METHODS. IT SHOULD NOT BE USED ALONE A SCREENING TEST OR DIAGNOSIS FOR THE PRESENCE OR ABSENCE OF MALIGNANT DISEASE. PREDICTIONS OF DISEASE RECURRENCE SHOULD NOT BE BASED SOLELY ON VALUES OBTAINED FROM SERIAL PATIENT SERUM VALUES. 3 THE CEA ASSAY IS PERFORMED O N THE [employer] BY CHEMILUMINESCENCE AND SHOULD NOT BE COMPARED INTERCHANGEABLY WITH OTHER METHODS. IT SHOULD NOT BE USED ALONE A SCREENING TEST OR DIAGNOSIS FOR THE PRESENCE OR ABSENCE OF MALIGNANT DISEASE. PREDICTIONS OF DISEASE RECURRENCE SHOULD NOT BE BASED SOLELY ON VALUES OBTAINED FROM SERIAL PATIENT SERUM VALUES. 4 DIAGNOSIS CRITERIA MMB ng/ml Relative Index (RI) NON-AMI < or = 5 N/A WILBURN ZONE > 5 < or = 4 AMI > 5 > 4 5 Troponin I Reference Interva l for [employer] [place] [facility]: 99th Percentile= 0.00-0.045 ng/ml Risk Stratification: <= 0.10 ng/ml Decreased Risk for Adverse Clinical Events. 0.10-1.50 ng/ml Increased Risk for Adv erse Clinical Events. Evaluation of additional criterion and/or repeat testing in 2-6 hours is suggested to rule out myocardial damage. >= 1.50 ng/ml Indicative of Myocardial Injury. 6 Units are mL/min/1.73 m2 Chronic Kidney Disease Staging per NKF: Stage I & II GFR >=60 Normal to Mildly Decreased Stage III GFR 30-59 Moderately Decreased Stage IV GFR 15-29 Severely Decreased Stage V GFR <15 Very Little GFR Left ESRD GFR <15 on PROCESS SAFETY ENGINEERING TECHNOLOGIST 7 Units are mL/min/1.73 m2 Chronic Kidney Disease Staging per NKF: Stage I & II GFR >=60 Normal to Mildly Decreased Stage III GFR 30-59 Moderately Decreased Stage IV GFR 15-29 Severely Decreased Stage V GFR <15 Very Little GFR Left ESRD GFR <15 on PROCESS SAFETY ENGINEERING TECHNOLOGIST 8 Units are mL/min/1.73 m2 Chronic Kidney Disease Staging per NKF: Stage I & II GFR >=60 Normal to Mildly Decreased Stage III GFR 30-59 Moderately Decreased Stage IV GFR 15-29 Severely Decreased Stage V GFR <15 Very Little GFR Left ESRD GFR <15 on PROCESS SAFETY ENGINEERING TECHNOLOGIST 9 DIAGNOSIS CRITERIA MMB ng/ml Relative Index (RI) NON-AMI < or = 5 N/A WILBURN ZONE > 5 < or = 4 AMI > 5 > 4 10 Troponin I Reference Interva l for [employer] [facility]: 99th Percentile= 0.00-0.045 ng/ml Risk Stratification: <= 0.10 ng/ml Decreased Risk for Adverse Clinical Events. 0.10-1.50 ng/ml Increased Risk for Adv erse Clinical Events. Evaluation of additional criterion and/or repeat testing in 2-6 hours is suggested to rule out myocardial damage. >= 1.50 ng/ml Indicative of Myocardial Injury. Procedures Date Code Description Status 08/13/2020 95032 Office/Outpatient Established Mo d MDM 30-39 Min Completed 11/27/2017 [id number] Colonoscopy Completed 12/29/2011 [id number] Colonoscopy Completed 09/14/2008 [id number] Colonoscopy Completed Medical Devices Description No Information Available Encounters Type Date Location Provider Dx Diagnosis Office Visit 08/13/2020 10:40a [facility] CLAIRE Sosa JR C18.6 Malignant [...] 02/16/2021 11:00 am - DAV Morales at [facility] 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
--- OUTSIDE RECORDS SUMMARY | 2021-02-11 09:46 | CCD | Continuity of Care Document ---
Author Author Jose ROMO MD Organization Unknown Address [address], [address] [place] [address] Phone [phone] Care Team Providers Care Makeup Artist Name Role Phone AUTM Unavailable Tobias Cage M.D. AUTM [phone] Claudine Orosco AUTM [phone] Problems Active Problems Provider Date History of [...] lb BMI (Body Mass Index) 17.7 kg/m2 [place] Body Weight 115 lb Weight 45.360 kg BSA (Body Surface Area) 1.44 m2 12/01/2020 10:52am BP Systolic 122 mmHg BP Diastolic 88 mmHg Heart Rate 95 /min O2 % BldC Oximetry 97 % Height 63 inches 5'3" Weight 101.00 lb BMI (Body Mass Index) 17.9 kg/m2 [place] Body Weight 115 lb Weight 45.814 kg BSA (Body Surface Area) 1.45 m2 Results Test Acquired Date Facility Test Result H/L Range Note Laboratory test finding 12/15/2020 [facility] [address] [place] [address] [phone] Non Senior Environmental Technician/Cytology Req For Servi (SEE NOTE) 1 Laboratory test finding 12/01/2020 [facility] [address] [place] [address] [phone] Pathology Request For Service (SEE NOTE) 2 Laboratory test finding 12/01/2020 [facility] [address] [place] [address] [id number] [phone] Non Senior Environmental Technician/Cytology Req For Servi (SEE NOTE) 3 1 [...] cell block of FNA were sent to [facility] for consultation, they agree with the above findings. See consultation report [id number], scanned in EMR pathology module. 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
--- OUTSIDE RECORDS SUMMARY | 2021-02-11 09:47 | CCD | Continuity of Care Document ---
Author Author Jose ROMO MD Organization Unknown Address [address], [address] [place] [address] Phone [phone] Care Team Providers Care Management Intern Name Role Phone AUTM Unavailable Tobias Cage M.D. AUTM [phone] Claudine Orosco AUTM [phone] Problems Active Problems Provider Date History of [...] Available Vital Signs Date Vital Result Comment 12/01/2020 10:52am BP Systolic 122 mmHg BP Diastolic 88 mmHg Heart Rate 95 /min O2 % BldC Oximetry 97 % Height 63 inches 5'3" Weight 101.00 lb BMI (Body Mass Index) 17.9 kg/m2 [place] Body Weight 115 lb Weight 45.814 kg BSA (Body Surface Area) 1.45 m2 10/22/2017 11:00am BP Systolic 140 mmHg BP Diastolic 88 mmHg Height 63 inches 5'3" Weight 150.38 lb BMI (Body Mass Index) 26.6 kg/m2 [place] Body Weight 115 lb Weight 68.210 kg BSA (Body Surface Area) 1.71 m2 Results Description No Information Available Procedures Description No Information Available Medical Devices Description No Information Available Encounters Description No Information Available Assessments Date Code Description Provider 12/01/2020 R47.02 Dysphasia Cody Romo MD 12/01/2020 R07.0 Pain in throat Cody Romo MD 12/01/2020 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
--- OUTSIDE RECORDS SUMMARY | 2021-02-11 09:47 | CCD | Continuity of Care Document ---
Author Author Jose ENCINAS M.D. 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 Onset: 0 Social History Type Date Description Comments Sex Unknown ETOH Use Denies alcohol use Tobacco Use Start: Unknown End: Unknown Patient is a former smoker QUIT 05/24/16 Allergies, Adverse Reactions, Alerts Description No Known Drug Allergies Medications Active Medications SIG Qnty Indications Ordering Provide r Date Klor-Con M10 10Meq Tablets ER 2 by mouth twice a day 90tabs CLAIRE Pak JR 021 Nystatin 930671Hflb/ML Suspension 5 milliliters swish and spit four [...] by mouth every day prn 30caps Sherron Vaelrio FNP 06/09/2015 Anoro Ellipta 62.5-25mcg/Inh Aeros ol [...] CPT Code Status Date Vaccine Lot # [id number] Given 12/31/2017 Influenza Virus Vaccine, Quadrivalent (Cciiv4), Derived From 9 Given 01/11/2017 Influenza Vaccin e Quadrivalent Preser/Antibiotic Free Im Use [id number] Vital Signs Date Vital Result Comment 08/13/2020 [...] Date Facility Test Result H/L Range Note Cardiac Marker Panel 11/30/2020 [facility] enter [address] [place] [address] [phone] CPK Creatine Phosphokinase 18 U/L Low 26-19 2 CK-MB Value Mass < 1.0 NG/ML Normal <3.6 MB/CK Relative Index 5.56 High < Or =4 1 Troponin I < 0.02 NG/ML Normal < 0.10 2 Liver Profile 11/30/2020 [facility] nter [address] [place] [address] [phone] Ast/Sgot 19 U/L Normal 7-37 Alt/SGPT 22 U/L Normal 12-78 Alkaline Phosphatase 218 U/L High 45-117 Bilirubin,Total 1.2 mg/dL High 0.2-1.0 Bilirubin,Direct 0.5 mg/dL High 0.0-0.2 Total Protein 6.3 GM/DL Low 6.4-8.2 Albumin 2.9 GM/DL Low 3.2-5.2 Albumin/Globulin Ratio 0.9 Low 1.2-2.2 Laboratory test finding 11/30/[address] [address] [phone] Lipase 47 U/L Low 73-393 CBC With Differential 11/30/[address] [address] [phone] White Blood Count 15.2 10 High 4.0-10.0 [...] 36.0-66.0 Lymph % 7.3 % Low 24.0-44.0 [place] % 8.2 % High 2.0-8.0 Eos % 0.2 % Normal 0.0-3.0 Baso % 0.5 % Normal 0.0-1.0 Immature Granulocyte % 3.2 % High 0-3.0 Nucleated Red Blood Cell % 0.0 % Normal 0-0 Neutrophils # 12.2 10 High 1.5-8.5 Lymph # 1.1 10 Low 1.5-5.0 [place] # 1.3 10 High 0.0-0.8 Eos # 0.0 10 Normal 0.0-0.5 Baso # 0.1 10 Normal 0.0-0.2 Istat Chem8+ Panel 11/30/2020 [facility] nter [address] [place], [place] 9[address]51 [phone] iSTAT HCT 46.0 % Normal 38.0-51.0 iSTAT Glucose 106 mg/dL High 70-105 iSTAT Sodium 136 mEq/L Normal 136-145 iSTAT Potassium 3.0 mEq/L Low 3.5-5.1 iSTAT CA++ 4.6 mg/dL Normal 4.5-5.3 iSTAT Chloride 92 mEq/L Low 98-109 iSTAT Co2 30.0 MM/L High 23.0-27.0 iSTAT BUN 4 mg/dL Low 8-26 iSTAT Creatinine 0.4 mg/dL Low 0.6-1.3 Basic Metabolic Profile 09/24/[address] [address] [phone] Glucose, Fasting 93 mg/dL Normal 70-100 Blood [...] mg/dL Normal 8.5-10.1 Laboratory test finding 09/24/[address] [address] [phone] Phosphorus Level 3.6 mg/dL Normal 2.5-4.9 Magnesium Level 1.9 mg/dL Normal 1.8-2.4 CBC With Differential 09/24/[address] [address] [phone] White Blood Count 7.0 10 Normal 4.0-10.0 [...] 36.0-66.0 Lymph % 14.8 % Low 24.0-44.0 [place] % 17.0 % High 2.0-8.0 Eos % 0.6 % Normal 0.0-3.0 Baso % 1.4 % High 0.0-1.0 Immature Granulocyte % 1.4 % Normal 0-3.0 Nucleated Red Blood Cell % 0.0 % Normal 0-0 Neutrophils # 4.5 10 Normal 1.5-8.5 Lymph # 1.0 10 Low 1.5-5.0 [place] # 1.2 10 High 0.0-0.8 Eos # 0.0 10 Normal 0.0-0.5 Baso # 0.1 10 Normal 0.0-0.2 Basic Metabolic Profile 09/17/[address] [address] [phone] Glucose, Fasting 96 mg/dL Normal 70-100 Blood Urea Nitrogen 2 mg/dL Low 7-18 Creatinine For GFR 0.51 mg/dL Low 0.55-1.30 Glomerular Filtration Rate > 60.0 Normal >51 4 Sodium Level 143 mEq/L Normal 136-145 Potassium Serum 3.4 mEq/L Low 3.5-5.1 Chloride Level 107 mEq/L Normal 98-107 Carbon Dioxide Level 30 mEq/L Normal 21-32 Anion Gap 6 mEq/L Low 8-16 Calcium Level 9.0 mg/dL Normal 8.5-10.1 Basic Metabolic Profile 09/16/[address] [id number] [phone] Glucose, Fasting 92 mg/dL Normal 70-100 Blood Urea Nitrogen 3 mg/dL Low 7-18 Creatinine For GFR 0.58 mg/dL Normal 0.55-1.30 Glomerular Filtration Rate > 60.0 Normal >51 5 Sodium Level 140 mEq/L Normal 136-145 Potassium Serum 3.4 mEq/L Low 3.5-5.1 Chloride Level 107 mEq/L Normal 98-107 Carbon Dioxide Level 30 mEq/L Normal 21-32 Anion Gap 3 mEq/L Low 8-16 Calcium Level 9.0 mg/dL Normal 8.5-10.1 Istat Chem8+ Panel 08/16/2020 [facility] nter [address] [place] [address] [phone] iSTAT HCT 42.0 % Normal 38.0-51.0 iSTAT Glucose 102 mg/dL Normal 70-105 iSTAT Sodium 137 mEq/L Normal 136-145 iSTAT Potassium 3.6 mEq/L Normal 3.5-5.1 iSTAT CA++ 4.4 mg/dL Low 4.5-5.3 iSTAT Chloride 96 mEq/L Low 98-109 iSTAT Co2 35.0 MM/L High 23.0-27.0 iSTAT BUN 8 mg/dL Normal 8-26 iSTAT Creatinine 0.8 mg/dL Normal 0.6-1.3 CBC With Differential 08/16/2020 [facility] [address] [place] [address] [phone] White Blood Count 12.8 10 High 4.0-10.0 [...] 36.0-66.0 Lymph % 10.8 % Low 24.0-44.0 [place] % 10.2 % High 2.0-8.0 Eos % 0.1 % Normal 0.0-3.0 Baso % 0.6 % Normal 0.0-1.0 Immature Granulocyte % 3.4 % High 0-3.0 Nucleated Red Blood Cell % 0.2 % High 0-0 Neutrophils # 9.6 10 High 1.5-8.5 Lymph # 1.4 10 Low 1.5-5.0 [place] # 1.3 10 High 0.0-0.8 Eos # 0.0 10 Normal 0.0-0.5 Baso # 0.1 10 Normal 0.0-0.2 Cardiac Marker Panel 08/16/2020 [facility] enter [address] [place] [address] [phone] CPK Creatine Phosphokinase 39 U/L Normal 26-19 2 CK-MB Value Mass < 1.0 NG/ML Normal <3.6 MB/CK Relative Index 2.56 Normal < Or =4 6 Troponin I < 0.02 NG/ML Normal < 0.10 7 Liver Profile 08/16/2020 [facility] nter [address] [place] [address] [phone] Ast/Sgot 32 U/L Normal 7-37 Alt/SGPT 18 U/L Normal 12-78 Alkaline Phosphatase 142 U/L High 45-117 Bilirubin,Total 0.9 mg/dL Normal 0.2-1.0 Bilirubin,Direct 0.3 mg/dL High 0.0-0.2 Total Protein 6.2 GM/DL Low 6.4-8.2 Albumin 3.1 GM/DL Low 3.2-5.2 Albumin/Globulin Ratio 1.0 Low 1.2-2.2 Laboratory test finding 08/16/2020 [facility] [address] [place] [address] [phone] Magnesium Level 2.2 mg/dL Normal 1.8-2.4 Lipase 48 U/L Low 73-393 Lipid Profile 08/13/2020 [facility] Justice Court Judge: [place] [address] [phone] Cholesterol 110 mg/dL Low 131 - 200 Triglycerides 92 mg/dL 30 - 150 HDL Cholesterol 48 mg/dL 35 - 60 LDL (Calculated) 44 CALC Low 50 - 159 Laboratory test finding 08/13/[address] [facility] [address] Judge: [place] [address] [phone] Thyroid Stimulating Hormone 11.55 uIU/mL High 0. 36 - 3.74 Laboratory test finding 08/13/[address] [facility] [address] Judge: [place] [address] [phone] T4 Free 1.73 ng/dL High 0.76 - 1.46 1 DIAGNOSIS CRITERIA MMB ng/ml Relative Index (RI) NON-AMI < or = 5 N/A WILBURN ZONE > 5 < or = 4 AMI > 5 > 4 2 Troponin I Reference Interva l for Siemens [employer] LOCI: 99th Percentile= 0.00-0.045 ng/ml Risk Stratification: <= 0.10 ng/ml Decreased Risk for Adverse Clinical Events. 0.10-1.50 ng/ml Increased Risk for Adv erse Clinical Events. Evaluation of additional criterion and/or repeat testing in 2-6 hours is suggested to rule out myocardial damage. >= 1.50 ng/ml Indicative of Myocardial Injury. 3 Units are mL/min/1.73 m2 Chronic Kidney Disease Staging per NKF: Stage I & II GFR >=60 Normal to Mildly Decreased Stage III GFR 30-59 Moderately Decreased Stage IV GFR 15-29 Severely Decreased Stage V GFR <15 Very Little GFR Left ESRD GFR <15 on DECK WORKER 4 Units are mL/min/1.73 m2 Chronic Kidney Disease Staging per NKF: Stage I & II GFR >=60 Normal to Mildly Decreased Stage III GFR 30-59 Moderately Decreased Stage IV GFR 15-29 Severely Decreased Stage V GFR <15 Very Little GFR Left ESRD GFR <15 on DECK WORKER 5 Units are mL/min/1.73 m2 Chronic Kidney Disease Staging per NKF: Stage I & II GFR >=60 Normal to Mildly Decreased Stage III GFR 30-59 Moderately Decreased Stage IV GFR 15-29 Severely Decreased Stage V GFR <15 Very Little GFR Left ESRD GFR <15 on DECK WORKER 6 DIAGNOSIS CRITERIA MMB ng/ml Relative Index (RI) NON-AMI < or = 5 N/A WILBURN ZONE > 5 < or = 4 AMI > 5 > 4 7 Troponin I Reference Interva l for Siemens [place] LOCI: 99th Percentile= 0.00-0.045 ng/ml Risk Stratification: <= 0.10 ng/ml Decreased Risk for Adverse Clinical Events. 0.10-1.50 ng/ml Increased Risk for Adv erse Clinical Events. Evaluation of additional criterion and/or repeat testing in 2-6 hours is suggested to rule out myocardial damage. >= 1.50 ng/ml Indicative of Myocardial Injury. Procedures Date Code Description Status 08/13/2020 16816 Office/Outpatient Established Mo d MDM 30-39 Min Completed 11/27/2017 [id number] Colonoscopy Completed 12/29/2011 [id number] Colonoscopy Completed 09/14/2008 [id number] Colonoscopy Completed Medical Devices Description No Information Available Encounters Type Date Location Provider Dx Diagnosis Office Visit 08/13/2020 10:40a [facility] CLAIRE Sosa JR C18.6 Malignant [...] 02/16/2021 11:00 am - DAV Morales at [facility] 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 oncology at this time, is undergoing [...] to Reason for Referral Status Appt Date [facility] Hematology/Oncology PROFESSIONAL SECURITY OFFICER CONSULT FOR WANG SYNDROM E, COLON CANCER TRANSFER FROM [facility] Created [address] [place] [address] [phone]
--- OUTSIDE RECORDS SUMMARY | 2021-02-11 09:47 | CCD | Continuity of Care Document ---
Author Organization Unknown Address Unknown Phone Unavailable Care Team Providers Care Laminating Machine Feeder Name Role Phone Chula Geronimo MD - DM, Osteo & Endo CNT AUTM [phone] Claudine Orosco AUTM [phone] Problems Active Problems Provider Date Cruz syndrome [...] day 90tabs CLAIRE Pak JR 021 Nystatin [id number]/ML Suspension 5 milliliters swish and spit four [...] s 1 by mouth every day Unknown History Medications Nitrofurantoin Monohyd Macro 100mg Capsules take one tablet by mouth twice daily for 7 days. 14caps Franklyn Gutierrez MD 06/15/2020 - 06/22/2020 Medications Administered in Office Medication SIG Qnty Indications Ordering Provider Date Immunization Adminstration,1 Vaccine/Tox oid Injection Sherron Valerio FNP 01/01/20 18 Immunizations CPT Code Status Date Vaccine Lot # [id number] Given 12/31/2017 Influenza Virus Vaccine, Quadrivalent (Cciiv4), Derived From 6 Given 01/11/2017 Influenza Vaccin e Quadrivalent Preser/Antibiotic Free Im Use [id number] Vital Signs Date Vital Result Comment 08/13/2020 [...] H/L Range Note Cardiac Marker Panel 11/30/2020 [facility] enter [address] [place], [place] [id number] [phone] CPK Creatine Phosphokinase 18 U/L Low 26-19 2 CK-MB Value Mass < 1.0 NG/ML Normal <3.6 MB/CK Relative Index 5.56 High < Or =4 1 Troponin I < 0.02 NG/ML Normal < 0.10 2 Liver Profile 11/30/2020 [facility] nter [address] [place] [address] [phone] Ast/Sgot 19 U/L Normal 7-37 Alt/SGPT 22 U/L Normal 12-78 Alkaline Phosphatase 218 U/L High 45-117 Bilirubin,Total 1.2 mg/dL High 0.2-1.0 Bilirubin,Direct 0.5 mg/dL High 0.0-0.2 Total Protein 6.3 GM/DL Low 6.4-8.2 Albumin 2.9 GM/DL Low 3.2-5.2 Albumin/Globulin Ratio 0.9 Low 1.2-2.2 Laboratory test finding 11/30/[address] [address] [phone] Lipase 47 U/L Low 73-393 CBC With Differential 11/30/[address] [address] [phone] White Blood Count 15.2 10 High 4.0-10.0 [...] 36.0-66.0 Lymph % 7.3 % Low 24.0-44.0 Larue % 8.2 % High 2.0-8.0 Eos % 0.2 % Normal 0.0-3.0 Baso % 0.5 % Normal 0.0-1.0 Immature Granulocyte % 3.2 % High 0-3.0 Nucleated Red Blood Cell % 0.0 % Normal 0-0 Neutrophils # 12.2 10 High 1.5-8.5 Lymph # 1.1 10 Low 1.5-5.0 Larue # 1.3 10 High 0.0-0.8 Eos # 0.0 10 Normal 0.0-0.5 Baso # 0.1 10 Normal 0.0-0.2 Istat Chem8+ Panel 11/30/2020 [facility] nter [address] [place] [address] [phone] iSTAT HCT 46.0 % Normal 38.0-51.0 iSTAT Glucose 106 mg/dL High 70-105 iSTAT Sodium 136 mEq/L Normal 136-145 iSTAT Potassium 3.0 mEq/L Low 3.5-5.1 iSTAT CA++ 4.6 mg/dL Normal 4.5-5.3 iSTAT Chloride 92 mEq/L Low 98-109 iSTAT Co2 30.0 MM/L High 23.0-27.0 iSTAT BUN 4 mg/dL Low 8-26 iSTAT Creatinine 0.4 mg/dL Low 0.6-1.3 Basic Metabolic Profile 09/24/[address] [address] [phone] Glucose, Fasting 93 mg/dL Normal 70-100 Blood [...] mg/dL Normal 8.5-10.1 Laboratory test finding 09/24/[address] [address] [phone] Phosphorus Level 3.6 mg/dL Normal 2.5-4.9 Magnesium Level 1.9 mg/dL Normal 1.8-2.4 CBC With Differential 09/24/[address] [address] [phone] White Blood Count 7.0 10 Normal 4.0-10.0 [...] 36.0-66.0 Lymph % 14.8 % Low 24.0-44.0 Larue % 17.0 % High 2.0-8.0 Eos % 0.6 % Normal 0.0-3.0 Baso % 1.4 % High 0.0-1.0 Immature Granulocyte % 1.4 % Normal 0-3.0 Nucleated Red Blood Cell % 0.0 % Normal 0-0 Neutrophils # 4.5 10 Normal 1.5-8.5 Lymph # 1.0 10 Low 1.5-5.0 Larue # 1.2 10 High 0.0-0.8 Eos # 0.0 10 Normal 0.0-0.5 Baso # 0.1 10 Normal 0.0-0.2 Basic Metabolic Profile 09/17/[address] 4890532 [phone] Glucose, Fasting 96 mg/dL Normal 70-100 Blood [...] mg/dL Normal 8.5-10.1 Basic Metabolic Profile 09/16/[address] 4979053 [phone] Glucose, Fasting 92 mg/dL Normal 70-100 Blood [...] 8-16 Calcium Level 9.0 mg/dL Normal 8.5-10.1 Cardiac Marker Panel 08/16/2020 [facility] enter [address] [place] [address] [phone] CPK Creatine Phosphokinase 39 U/L Normal 26-19 2 CK-MB Value Mass < 1.0 NG/ML Normal <3.6 MB/CK Relative Index 2.56 Normal < Or =4 6 Troponin I < 0.02 NG/ML Normal < 0.10 7 Laboratory test finding 08/16/[address] [address] [phone] Magnesium Level 2.2 mg/dL Normal 1.8-2.4 Lipase 48 U/L Low 73-393 Liver Profile 08/16/2020 [facility] nter [address] [place] [address] [phone] Ast/Sgot 32 U/L Normal 7-37 Alt/SGPT 18 U/L Normal 12-78 Alkaline Phosphatase 142 U/L High 45-117 Bilirubin,Total 0.9 mg/dL Normal 0.2-1.0 Bilirubin,Direct 0.3 mg/dL High 0.0-0.2 Total Protein 6.2 GM/DL Low 6.4-8.2 Albumin 3.1 GM/DL Low 3.2-5.2 Albumin/Globulin Ratio 1.0 Low 1.2-2.2 CBC With Differential 08/16/[address] [address] [phone] White Blood Count 12.8 10 High 4.0-10.0 [...] 36.0-66.0 Lymph % 10.8 % Low 24.0-44.0 Larue % 10.2 % High 2.0-8.0 Eos % 0.1 % Normal 0.0-3.0 Baso % 0.6 % Normal 0.0-1.0 Immature Granulocyte % 3.4 % High 0-3.0 Nucleated Red Blood Cell % 0.2 % High 0-0 Neutrophils # 9.6 10 High 1.5-8.5 Lymph # 1.4 10 Low 1.5-5.0 Larue # 1.3 10 High 0.0-0.8 Eos # 0.0 10 Normal 0.0-0.5 Baso # 0.1 10 Normal 0.0-0.2 Istat Chem8+ Panel 08/16/2020 [facility] nter [address] [place], [place] 2[address]993 [phone] iSTAT HCT 42.0 % Normal 38.0-51.0 iSTAT Glucose 102 mg/dL Normal 70-105 iSTAT Sodium 137 mEq/L Normal 136-145 iSTAT Potassium 3.6 mEq/L Normal 3.5-5.1 iSTAT CA++ 4.4 mg/dL Low 4.5-5.3 iSTAT Chloride 96 mEq/L Low 98-109 iSTAT Co2 35.0 MM/L High 23.0-27.0 iSTAT BUN 8 mg/dL Normal 8-26 iSTAT Creatinine 0.8 mg/dL Normal 0.6-1.3 Lipid Profile 08/13/2020 [facility] Entry Examiner: Dr Franklyn Gutierrez [place], [place] [address]17 [phone] Cholesterol 110 mg/dL Low 131 - 200 Triglycerides 92 mg/dL 30 - 150 HDL Cholesterol 48 mg/dL 35 - 60 LDL (Calculated) 44 CALC Low 50 - 159 Laboratory test finding 08/13/2020 [facility] Entry Examiner: Dr Franklyn Gutierrez [place], [place] 9396649 [phone] Thyroid Stimulating Hormone 11.55 uIU/mL High 0. 36 - 3.74 Laboratory test finding 08/13/2020 [facility] Entry Examiner: [place] [address] [phone] T4 Free 1.73 ng/dL High 0.76 - 1.46 Ua W/ Reflex To Culture 06/09/2020 [facility] [address] [place] [address] [phone] Appearance, Urine RFX CLEAR Normal Clear Color, Urine RFX COLORLESS Normal Yellow PH,Urine RFX 7.0 units Normal 5.0-9.0 Specific [place] Ur Auto RFX 1.000 Low 1.002-1.035 Protein, Urine Auto RFX NEGATIVE mg/dL Normal Negative Glucose, Urine (Ua) Auto RFX NEGATIVE mg/dL Normal Negative Ketone, Urine Auto RFX NEGATIVE mg/dL Normal Negative Urobilinogen, Urine Auto RFX 0.2 mg/dL Normal 0.0-2.0 Bilirubin, Urine Auto RFX NEGATIVE Normal Negative Nitrite, Urine Auto RFX NEGATIVE Normal Negative Leukocyte Esterase Ur Auto RFX TRACE High Negative Blood, Urine Blood RFX 1+ High Negative WBC, Urine Auto RFX 0 /HPF Normal 0-3 RBC, Urine Auto RFX 0 /HPF Normal 0-3 Bacteria, Urine Auto RFX NEGATIVE Normal Negative Squam Epithelial Cell Ur Aurfx 0 /HPF Normal 0-6 Hyaline Cast, Urine Auto RFX 0 /LPF Normal 0-1 Reflex Urine Culture 06/09/2020 [facility] enter [address] [place] [address] [phone] Reflex Urine Culture FULL REPORT IN L <SEE NOTE> Norm al 8 Comprehensive Metabolic Profil 06/09/2020 [facility] [address] [place] [address] [phone] Glucose, Fasting 87 mg/dL Normal 70-100 Blood Urea Nitrogen 4 mg/dL Low 7-18 Creatinine For GFR 0.75 mg/dL Normal 0.55-1.30 Glomerular Filtration Rate > 60.0 Normal >51 9 Sodium Level 142 mEq/L Normal 136-145 Potassium Serum 3.8 mEq/L Normal 3.5-5.1 Chloride Level 106 mEq/L Normal 98-107 Carbon Dioxide Level 31 mEq/L Normal 21-32 Anion Gap 5 mEq/L Low 8-16 Calcium Level 9.8 mg/dL Normal 8.5-10.1 Ast/Sgot 21 U/L Normal 7-37 Alt/SGPT 23 U/L Normal 12-78 Alkaline Phosphatase 93 U/L Normal 45-117 Bilirubin,Total 0.4 mg/dL Normal 0.2-1.0 Total Protein 7.0 GM/DL Normal 6.4-8.2 Albumin 3.8 GM/DL Normal 3.2-5.2 Albumin/Globulin Ratio 1.2 Normal 1.2-2.2 Laboratory test finding 06/09/[address] [address] [phone] Magnesium Level 1.5 mg/dL Low 1.8-2.4 CBC With Differential 06/09/[address] [address] [phone] White Blood Count 4.5 10 Normal 4.0-10.0 Red Blood Count 4.29 10 Normal 4.00-5.40 Hemoglobin 12.3 g/dL Normal 12.0-15.5 Hematocrit 38.8 % Normal 36.0-47.0 Mean Corpuscular Volume 90.4 fl Normal 80.0-96.0 Mean Corpuscular Hemoglobin 28.7 pg Normal 27.0-33.0 Mean Corpuscular HGB Conc 31.7 g/dL Low 32.0-36.5 Red Cell Distribution Width 14.0 % Normal 11.5-14.5 Platelet Count, Automated 94 10 Low 150-450 10 Neutrophils % 58.2 % Normal 36.0-66.0 Lymph % 26.1 % Normal 24.0-44.0 Larue % 12.9 % High 2.0-8.0 Eos % 1.3 % Normal 0.0-3.0 Baso % 1.3 % High 0.0-1.0 Immature Granulocyte % 0.2 % Normal 0-3.0 Nucleated Red Blood Cell % 0.0 % Normal 0-0 Neutrophils # 2.6 10 Normal 1.5-8.5 Lymph # 1.2 10 Low 1.5-5.0 Larue # 0.6 10 Normal 0.0-0.8 Eos # 0.1 10 Normal 0.0-0.5 Baso # 0.1 10 Normal 0.0-0.2 Laboratory test finding 06/09/2020 [facility] [address] [place], [place] [address] [phone] Immature Platelet Fraction 4.2 % Normal 0.0-9 .59 1 DIAGNOSIS CRITERIA MMB ng/ml Relative Index (RI) NON-AMI < or = 5 N/A WILBURN ZONE > 5 < or = 4 AMI > 5 > 4 2 Troponin I Reference Interva l for Siemens [employer] LOCI: 99th Percentile= 0.00-0.045 ng/ml Risk Stratification: [...] Little GFR Left ESRD GFR <15 on SERVICES REP 4 Units are mL/min/1.73 m2 Chronic Kidney Disease Staging per NKF: Stage I & II GFR >=60 Normal to Mildly Decreased Stage III GFR 30-59 Moderately Decreased Stage IV GFR 15-29 Severely Decreased Stage V GFR <15 Very Little GFR Left ESRD GFR <15 on SERVICES REP 5 Units are mL/min/1.73 m2 Chronic Kidney Disease Staging per NKF: Stage I & II GFR >=60 Normal to Mildly Decreased Stage III GFR 30-59 Moderately Decreased Stage IV GFR 15-29 Severely Decreased Stage V GFR <15 Very Little GFR Left ESRD GFR <15 on SERVICES REP 6 DIAGNOSIS CRITERIA MMB ng/ml Relative Index (RI) NON-AMI < or = 5 N/A WILBURN ZONE > 5 < or = 4 AMI > 5 > 4 7 Troponin I Reference Interva l for [employer] LOCI: 99th Percentile= 0.00-0.045 ng/ml Risk Stratification: <= 0.10 ng/ml Decreased Risk for Adverse Clinical Events. 0.10-1.50 ng/ml Increased Risk for Adv erse Clinical Events. Evaluation of additional criterion and/or repeat testing in 2-6 hours is suggested to rule out myocardial damage. >= 1.50 ng/ml Indicative of Myocardial Injury. 8 FULL REPORT IN LAB NOTES (eC W and Medjose de jesus). ORGANISM 1: ESCHERICHIA COLI COLONY COUNT 30,000 ORGANISM 1: ESCHERICHIA COLI ESCHERICHIA COLI: REACTION TRIMETHOPRIM/SULFAMETHOXAZOLE IV 160mg TMP & 800mg SMXq6h <=20 S TRIMETHOPRIM/SULFAMETHOXAZOLE PO Bactrim DS Bid <=20 S AMPICILLIN IV 500mg q6h >=32 R AMPICILLIN PO 500mg q6h fasting >=32 R GENTAMICIN IV 80mg q8h <=1 S NITROFURANTOIN PO 100mg BID <=16 S CEFAZOLIN IV 1gm q8h >=64 R LEVOFLOXACIN IV 500mg qd <=0.12 S LEVOFLOXACIN PO 250mg qd <=0.12 S LEVOFLOXACIN PO 500mg qd <=0.12 S TOBRAMYCIN IV 80mg q8h <=1 S CEFTRIAXONE IV 1gm q24h 16 I CEFTAZIDIME IV 1gm q8h 16 I AMPICILLIN/SULBACTAM IV 1.5g q6h >=32 R PIPERACILLIN/TAZOBACTAM IV 2.25 gm q6h <=4 S AZTREONAM IV 1gm q8h 16 I ERTAPENEM IV 1gm qd <=0.5 S MEROPENEM IV 1 gm q8h <=0.25 S MEROPENEM IV 500 mg q8h <=0.25 S TIGECYCLINE IV 50mg q12h <=0.5 S CEFEPIME IV 1 gm q12h <=1 S CEFEPIME IV 2 gm q12h <=1 S EXTD BRD SPCTRM BETA LACTAMASE IV NEGATIVE FOR ESBL 9 Units are mL/min/1.73 m2 Chronic Kidney Disease Staging per NKF: Stage I & II GFR >=60 Normal to Mildly Decreased Stage III GFR 30-59 Moderately Decreased Stage IV GFR 15-29 Severely Decreased Stage V GFR <15 Very Little GFR Left ESRD GFR <15 on SERVICES REP 10 Scan Verified machine result s PLATELET COUNT LESS THAN 100, AND NEW OCCURANCE OR Procedures Date Code Description Status 08/13/2020 [id number] Office/Outpatient Established Mo d MDM 30-39 Min Completed 11/27/2017 [id number] Colonoscopy Completed 12/29/2011 [id number] Colonoscopy Completed 09/14/2008 [id number] Colonoscopy Completed Medical Devices Description No Information Available Encounters Type Date Location Provider Dx Diagnosis Office Visit 08/13/2020 10:40a [facility] CLAIRE Sosa JR C18.6 Malignant [...] Treatment Future Appointment(s):* 02/16/2021 11:00 am - DVA Morales at [facility] 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
--- OUTSIDE RECORDS SUMMARY | 2021-02-11 09:47 | CCD | Continuity of Care Document ---
Author Author Jose ROMO MD Organization Unknown Address [address], [address] [place] [address] Phone [phone] Care Team Providers Care Barrel Assembler Helper Name Role Phone AUTM Unavailable Tobias Cage M.D. AUTM [phone] Claudine Orosco AUTM [phone] Problems Active Problems Provider Date History of [...] lb BMI (Body Mass Index) 17.9 kg/m2 [place] Body Weight 115 lb Weight 45.814 kg BSA (Body Surface Area) 1.45 m2 10/22/2017 11:00am BP Systolic 140 mmHg BP Diastolic 88 mmHg Height 63 inches 5'3" Weight 150.38 lb BMI (Body Mass Index) 26.6 kg/m2 [place] Body Weight 115 lb Weight 68.210 kg BSA (Body Surface Area) 1.71 m2 Results Test Acquired Date Facility Test Result H/L Range Note Laboratory test finding 12/01/2020 [facility] Main Lab [address] [place] [address] [phone] Pathology Request For Service (SEE NOTE) 1 Laboratory test finding 12/01/2020 [facility] Main Lab [address] [place], [place] [address] [phone] Non Library Attendant/Cytology Req For Servi (SEE NOTE) 2 1 FINAL DIAGNOSIS Thyroid nodule, cell block: Mixed inflammatory cells. No epithelial cells identified for evaluation of carcinoma. See comment. COMMENT: There is no evidence for malignancy in this specimen. If clinically indicated and concern for malignancy persists, a re-biopsy is recommended. 12/03/2020 - 145 CLINICAL DIAGNOSIS Right thyroid nodule 12/02/2020 - 1229 GROSS DIAGNOSIS Received in CytoLyt labeled "right thyroid nodule biopsy" for cell block. -CAROLYN 12/02/2020 - 1229 Signed LIANNA KIRBY MD 12/03/2020 145 2 SPECIMEN: FNA of right thyroid nodule Specimen received in cytolyt-red SPECIMEN ADEQUACY: Unsatisfactory for evaluation CATEGORIZATION: DESCRIPTIONS: No follicular component in a background of abundant neutrophils, macrophages, and debris. COMMENTS: 12/02/2020 - 810 Signed PENELOPE PATE (ASCP) 12/02/2020 08 (Prelim) Signed ILANNA KIRBY MD 12/03/2020 1459 Procedures Date Code Description Status 12/01/2020 66338 Office/Outpatient New Moderate M DM 45-59 Minutes Completed Medical Devices Description No Information Available Encounters Type Date Location Provider Dx Diagnosis Office Visit 12/01/2020 10:45a [facility] Joyce Moore R47.02 Dysphasia [...]
--- OUTSIDE RECORDS SUMMARY | 2021-02-11 09:47 | CCD | Continuity of Care Document ---
Author Author Jose ROMO MD Organization Unknown Address [address], [address] [place] [address] Phone [phone] Care Team Providers Care Sample Cutter Name Role Phone AUTM Unavailable Tobias Cage M.D. AUTM [phone] Claudine Orosco AUTM [phone] Problems Active Problems Provider Date History of [...] lb BMI (Body Mass Index) 17.9 kg/m2 [place] Body Weight 115 lb Weight 45.814 kg BSA (Body Surface Area) 1.45 m2 10/22/2017 11:00am BP Systolic 140 mmHg BP Diastolic 88 mmHg Height 63 inches 5'3" Weight 150.38 lb BMI (Body Mass Index) 26.6 kg/m2 [place] Body Weight 115 lb Weight 68.210 kg BSA (Body Surface Area) 1.71 m2 Results Description No Information Available Procedures Date Code Description Status 12/01/2020 13915 Office/Outpatient New Moderate M DM 45-59 Minutes Completed Medical Devices Description No Information Available Encounters Type Date Location Provider Dx Diagnosis Office Visit 12/01/2020 10:45a [facility] Joyce Moore R47.02 Dysphasia R07.0 [...]
--- OUTSIDE RECORDS SUMMARY | 2021-02-11 09:47 | CCD | Continuity of Care Document ---
Author Author Jose ROMO MD Organization Unknown Address [address], [address] [place] [address] Phone [phone] Care Team Providers Care Flume Maker Name Role Phone AUTM Unavailable Tobias Cage M.D. AUTM [phone] Claudine Orosco AUTM [phone] Problems Active Problems Provider Date History of [...] lb BMI (Body Mass Index) 17.9 kg/m2 [place] Body Weight 115 lb Weight 45.814 kg BSA (Body Surface Area) 1.45 m2 10/22/2017 11:00am BP Systolic 140 mmHg BP Diastolic 88 mmHg Height 63 inches 5'3" Weight 150.38 lb BMI (Body Mass Index) 26.6 kg/m2 [place] Body Weight 115 lb Weight 68.210 kg BSA (Body Surface Area) 1.71 m2 Results Test Acquired Date Facility Test Result H/L Range Note Laboratory test finding 12/01/2020 [facility] Main Lab [address] [place] [address] [phone] Pathology Request For Service (SEE NOTE) 1 Laboratory test finding 12/01/2020 [facility] Main Lab [address] [place], [place] [id number] [phone] Non Ophthalmic Medical Technologist/Cytology Req For Servi (SEE NOTE) 2 1 [...] PENELOPE PATE (ASCP) 12/02/2020 08 (Prelim) Signed LIANNA KIRBY MD 12/03/2020 1459 Procedures Date Code Description Status 12/01/2020 68272 Office/Outpatient New Moderate M DM 45-59 Minutes Completed Medical Devices Description No Information Available Encounters Type Date Location Provider Dx Diagnosis Office Visit 12/01/2020 10:45a [facility] ENT Practice Joyce Moore R47.02 Dysphasia [...]
--- OUTSIDE RECORDS SUMMARY | 2021-02-11 09:47 | CCD | Continuity of Care Document ---
Author Author Jose OROSCO [facility] Organization Unknown Address [address] [address] Phone [phone] Care Team Providers Care Process Controller Name Role Phone Chula Geronimo MD - DM, Osteo & Endo CNT AUTM [phone] Claudine Orosco AUTM [phone] Problems Active Problems Provider Date Cruz syndrome [...] day 90tabs CLAIRE Pak JR 021 Nystatin [id number] Suspension 5 milliliters swish and spit four [...] CPT Code Status Date Vaccine Lot # [id number] Given 12/31/2017 Influenza Virus Vaccine, Quadrivalent ([id number]), Derived From 8 Given 01/11/2017 Influenza Vaccin e Quadrivalent Preser/Antibiotic Free Im Use [id number] Vital Signs Date Vital Result Comment 08/13/2020 [...] H/L Range Note Cardiac Marker Panel 11/30/2020 [facility] enter [address] [place] [address] [id number] [phone] CPK Creatine Phosphokinase 18 U/L Low 26-19 2 CK-MB Value Mass < 1.0 NG/ML Normal <3.6 MB/CK Relative Index 5.56 High < Or =4 1 Troponin I < 0.02 NG/ML Normal < 0.10 2 Liver Profile 11/30/2020 [facility] nter [address] [place] [address] [phone] Ast/Sgot 19 U/L Normal 7-37 Alt/SGPT 22 U/L Normal 12-78 Alkaline Phosphatase 218 U/L High 45-117 Bilirubin,Total 1.2 mg/dL High 0.2-1.0 Bilirubin,Direct 0.5 mg/dL High 0.0-0.2 Total Protein 6.3 GM/DL Low 6.4-8.2 Albumin 2.9 GM/DL Low 3.2-5.2 Albumin/Globulin Ratio 0.9 Low 1.2-2.2 Laboratory test finding 11/30/[address] [address] [phone] Lipase 47 U/L Low 73-393 CBC With Differential 11/30/[address] [address] [phone] White Blood Count 15.2 10 High 4.0-10.0 [...] 36.0-66.0 Lymph % 7.3 % Low 24.0-44.0 [place] % 8.2 % High 2.0-8.0 Eos % 0.2 % Normal 0.0-3.0 Baso % 0.5 % Normal 0.0-1.0 Immature Granulocyte % 3.2 % High 0-3.0 Nucleated Red Blood Cell % 0.0 % Normal 0-0 Neutrophils # 12.2 10 High 1.5-8.5 Lymph # 1.1 10 Low 1.5-5.0 [place]undy # 1.3 10 High 0.0-0.8 Eos # 0.0 10 Normal 0.0-0.5 Baso # 0.1 10 Normal 0.0-0.2 Istat Chem8+ Panel 11/30/2020 [facility] nter [address] [place] [address] [phone] iSTAT HCT 46.0 % Normal 38.0-51.0 iSTAT Glucose 106 mg/dL High 70-105 iSTAT Sodium 136 mEq/L Normal 136-145 iSTAT Potassium 3.0 mEq/L Low 3.5-5.1 iSTAT CA++ 4.6 mg/dL Normal 4.5-5.3 iSTAT Chloride 92 mEq/L Low 98-109 iSTAT Co2 30.0 MM/L High 23.0-27.0 iSTAT BUN 4 mg/dL Low 8-26 iSTAT Creatinine 0.4 mg/dL Low 0.6-1.3 Basic Metabolic Profile 09/24/[address] [address] [phone] Glucose, Fasting 93 mg/dL Normal 70-100 Blood [...] mg/dL Normal 8.5-10.1 Laboratory test finding 09/24/[address] [address] [phone] Phosphorus Level 3.6 mg/dL Normal 2.5-4.9 Magnesium Level 1.9 mg/dL Normal 1.8-2.4 CBC With Differential 09/24/[address] [address] [phone] White Blood Count 7.0 10 Normal 4.0-10.0 [...] 36.0-66.0 Lymph % 14.8 % Low 24.0-44.0 Dundy % 17.0 % High 2.0-8.0 Eos % 0.6 % Normal 0.0-3.0 Baso % 1.4 % High 0.0-1.0 Immature Granulocyte % 1.4 % Normal 0-3.0 Nucleated Red Blood Cell % 0.0 % Normal 0-0 Neutrophils # 4.5 10 Normal 1.5-8.5 Lymph # 1.0 10 Low 1.5-5.0 Dundy # 1.2 10 High 0.0-0.8 Eos # 0.0 10 Normal 0.0-0.5 Baso # 0.1 10 Normal 0.0-0.2 Basic Metabolic Profile 09/17/[address] [address] [phone] Glucose, Fasting 96 mg/dL Normal 70-100 Blood [...] Normal 8.5-10.1 Basic Metabolic Profile 09/16/[address] [address] [phone] Glucose, Fasting 92 mg/dL Normal 70-100 Blood [...] mg/dL Normal 8.5-10.1 Cardiac Marker Panel 08/16/2020 [facility] enter [address] [place] [address] [phone] CPK Creatine Phosphokinase 39 U/L Normal 26-19 2 CK-MB Value Mass < 1.0 NG/ML Normal <3.6 MB/CK Relative Index 2.56 Normal < Or =4 6 Troponin I < 0.02 NG/ML Normal < 0.10 7 Laboratory test finding 08/16/[address] [address] [phone] Magnesium Level 2.2 mg/dL Normal 1.8-2.4 Lipase 48 U/L Low 73-393 Liver Profile 08/16/2020 [facility] nter [address] [place] [address] [phone] Ast/Sgot 32 U/L Normal 7-37 Alt/SGPT 18 U/L Normal 12-78 Alkaline Phosphatase 142 U/L High 45-117 Bilirubin,Total 0.9 mg/dL Normal 0.2-1.0 Bilirubin,Direct 0.3 mg/dL High 0.0-0.2 Total Protein 6.2 GM/DL Low 6.4-8.2 Albumin 3.1 GM/DL Low 3.2-5.2 Albumin/Globulin Ratio 1.0 Low 1.2-2.2 CBC With Differential 08/16/[address] [phone] White Blood Count 12.8 10 High 4.0-10.0 [...] 36.0-66.0 Lymph % 10.8 % Low 24.0-44.0 [place] % 10.2 % High 2.0-8.0 Eos % 0.1 % Normal 0.0-3.0 Baso % 0.6 % Normal 0.0-1.0 Immature Granulocyte % 3.4 % High 0-3.0 Nucleated Red Blood Cell % 0.2 % High 0-0 Neutrophils # 9.6 10 High 1.5-8.5 Lymph # 1.4 10 Low 1.5-5.0 [place]undy # 1.3 10 High 0.0-0.8 Eos # 0.0 10 Normal 0.0-0.5 Baso # 0.1 10 Normal 0.0-0.2 Istat Chem8+ Panel 08/16/2020 [facility] nter [address] [place] [address] [phone] iSTAT HCT 42.0 % Normal 38.0-51.0 iSTAT Glucose 102 mg/dL Normal 70-105 iSTAT Sodium 137 mEq/L Normal 136-145 iSTAT Potassium 3.6 mEq/L Normal 3.5-5.1 iSTAT CA++ 4.4 mg/dL Low 4.5-5.3 iSTAT Chloride 96 mEq/L Low 98-109 iSTAT Co2 35.0 MM/L High 23.0-27.0 iSTAT BUN 8 mg/dL Normal 8-26 iSTAT Creatinine 0.8 mg/dL Normal 0.6-1.3 Lipid Profile 08/13/2020 [facility] Judge: [place] [address] [phone] Cholesterol 110 mg/dL Low 131 - 200 Triglycerides 92 mg/dL 30 - 150 HDL Cholesterol 48 mg/dL 35 - 60 LDL (Calculated) 44 CALC Low 50 - 159 Laboratory test finding 08/13/[address] [facility] Judge: Dr [place] [address] [phone] Thyroid Stimulating Hormone 11.55 uIU/mL High 0. 36 - 3.74 Laboratory test finding 08/13/[address] [facility] Judge: [place] [address] [phone] T4 Free 1.73 ng/dL High 0.76 - 1.46 Ua W/ Reflex To Culture 06/09/2020 [facility] [address] [place] [address] [phone] Appearance, Urine RFX CLEAR Normal Clear Color, Urine RFX COLORLESS Normal Yellow PH,Urine RFX 7.0 units Normal 5.0-9.0 Specific [place] Ur Auto RFX 1.000 Low 1.002-1.035 Protein, [...] /LPF Normal 0-1 Reflex Urine Culture 06/09/2020 [facility] [address] [place] [address] [phone] Reflex Urine Culture FULL REPORT IN L <SEE NOTE> Norm al 8 Comprehensive Metabolic Profil 06/09/[address] [address] [phone] Glucose, Fasting 87 mg/dL Normal 70-100 Blood [...] 1.2 Normal 1.2-2.2 Laboratory test finding 06/09/[address] [address] [phone] Magnesium Level 1.5 mg/dL Low 1.8-2.4 CBC With Differential 06/09/[address] [address] [phone] White Blood Count 4.5 10 Normal 4.0-10.0 [...] 36.0-66.0 Lymph % 26.1 % Normal 24.0-44.0 [place]undy % 12.9 % High 2.0-8.0 Eos % 1.3 % Normal 0.0-3.0 Baso % 1.3 % High 0.0-1.0 Immature Granulocyte % 0.2 % Normal 0-3.0 Nucleated Red Blood Cell % 0.0 % Normal 0-0 Neutrophils # 2.6 10 Normal 1.5-8.5 Lymph # 1.2 10 Low 1.5-5.0 [place] # 0.6 10 Normal 0.0-0.8 Eos # 0.1 10 Normal 0.0-0.5 Baso # 0.1 10 Normal 0.0-0.2 Laboratory test finding 06/09/2020 [facility] [address] [place] [address] [phone] Immature Platelet Fraction 4.2 % Normal 0.0-9 .59 1 DIAGNOSIS CRITERIA MMB ng/ml Relative Index (RI) NON-AMI < or = 5 N/A WILBURN ZONE > 5 < or = 4 AMI > 5 > 4 2 Troponin I Reference Interva l for [employer] [place] LOCI: 99th Percentile= 0.00-0.045 ng/ml Risk Stratification: [...] Little GFR Left ESRD GFR <15 on IRON PELLET TESTER 4 Units are mL/min/1.73 m2 Chronic Kidney Disease Staging per NKF: Stage I & II GFR >=60 Normal to Mildly Decreased Stage III GFR 30-59 Moderately Decreased Stage IV GFR 15-29 Severely Decreased Stage V GFR <15 Very Little GFR Left ESRD GFR <15 on IRON PELLET TESTER 5 Units are mL/min/1.73 m2 Chronic Kidney Disease Staging per NKF: Stage I & II GFR >=60 Normal to Mildly Decreased Stage III GFR 30-59 Moderately Decreased Stage IV GFR 15-29 Severely Decreased Stage V GFR <15 Very Little GFR Left ESRD GFR <15 on IRON PELLET TESTER 6 DIAGNOSIS CRITERIA MMB ng/ml Relative Index (RI) NON-AMI < or = 5 N/A WILBURN ZONE > 5 < or = 4 AMI > 5 > 4 7 Troponin I Reference Interva l for [employer] LOCI: 99th Percentile= 0.00-0.045 ng/ml Risk Stratification: <= 0.10 ng/ml Decreased Risk for Adverse Clinical Events. 0.10-1.50 ng/ml Increased Risk for Adv erse Clinical Events. Evaluation of additional criterion and/or repeat testing in 2-6 hours is suggested to rule out myocardial damage. >= 1.50 ng/ml Indicative of Myocardial Injury. 8 FULL REPORT IN LAB NOTES (Miguel Peterson and Deidre). ORGANISM 1: ESCHERICHIA COLI COLONY COUNT 30,000 [...] Little GFR Left ESRD GFR <15 on IRON PELLET TESTER 10 Scan Verified machine result s PLATELET COUNT LESS THAN 100, AND NEW OCCURANCE OR Procedures Date Code Description Status 08/13/2020 99931 Office/Outpatient Established Mo d MDM 30-39 Min Completed 11/27/2017 [id number] Colonoscopy Completed 12/29/2011 90818293 Colonoscopy Completed 09/14/2008 [id number] Colonoscopy Completed Medical Devices Description No Information Available Encounters Type Date Location Provider Dx Diagnosis Office Visit 08/13/2020 10:40a [facility] CLAIRE Sosa JR C18.6 Malignant [...] 02/16/2021 11:00 am - DAV Morales at [facility] 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
--- OUTSIDE RECORDS SUMMARY | 2021-02-11 09:47 | CCD | Continuity of Care Document ---
Author Author Jose ROMO MD Organization Unknown Address [address], [address] [place] [address] Phone [phone] Care Team Providers Care Hand Edger Name Role Phone AUTM Unavailable Tobias Cage M.D. AUTM [phone] Claudine Orosco AUTM [phone] Problems Active Problems Provider Date History of [...] lb BMI (Body Mass Index) 17.9 kg/m2 [place] Body Weight 115 lb Weight 45.814 kg BSA (Body Surface Area) 1.45 m2 10/22/2017 11:00am BP Systolic 140 mmHg BP Diastolic 88 mmHg Height 63 inches 5'3" Weight 150.38 lb BMI (Body Mass Index) 26.6 kg/m2 [place] Body Weight 115 lb Weight 68.210 kg BSA (Body Surface Area) 1.71 m2 Results Test Acquired Date Facility Test Result H/L Range Note Laboratory test finding 12/01/2020 [facility] Main Lab [address] [place] [address] [phone] Pathology Request For Service (SEE NOTE) 1 Laboratory test finding 12/01/2020 [facility] Main Lab [address] [place], [place] [address] [phone] Non Line Inspector/Cytology Req For Servi (SEE NOTE) 2 1 [...] 1459 Procedures Date Code Description Status 12/01/2020 48095 Office/Outpatient New Moderate M DM 45-59 Minutes Completed Medical Devices Description No Information Available Encounters Type Date Location Provider Dx Diagnosis Office Visit 12/01/2020 10:45a [facility] Joyce Moore R47.02 Dysphasia R07.0 Pain in throat 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
--- OUTSIDE RECORDS SUMMARY | 2021-02-11 09:47 | CCD | Continuity of Care Document ---
Author Author Jose OROSCO [facility] Organization Unknown Address [address] [address] Phone [phone] Care Team Providers Care Computer Science Professor Name Role Phone Chula Geronimo MD - DM, Osteo & Endo CNT AUTM [phone] Claudine Orosco AUTM [phone] Problems Active Problems Provider Date Cruz syndrome [...] day 90tabs CLAIRE Pak JR 021 Nystatin [id number] Suspension 5 milliliters swish and spit four [...] CPT Code Status Date Vaccine Lot # [id number] Given 12/31/2017 Influenza Virus Vaccine, Quadrivalent ([id number]), Derived From 8 Given 01/11/2017 Influenza Vaccin e Quadrivalent Preser/Antibiotic Free Im Use [id number] Vital Signs Date Vital Result Comment 08/13/2020 [...] H/L Range Note Cardiac Marker Panel 11/30/2020 [facility] enter [address] [place] [address] [id number] [phone] CPK Creatine Phosphokinase 18 U/L Low 26-19 2 CK-MB Value Mass < 1.0 NG/ML Normal <3.6 MB/CK Relative Index 5.56 High < Or =4 1 Troponin I < 0.02 NG/ML Normal < 0.10 2 Liver Profile 11/30/2020 [facility] nter [address] [place] [phone] [phone] Ast/Sgot 19 U/L Normal 7-37 Alt/SGPT 22 U/L Normal 12-78 Alkaline Phosphatase 218 U/L High 45-117 Bilirubin,Total 1.2 mg/dL High 0.2-1.0 Bilirubin,Direct 0.5 mg/dL High 0.0-0.2 Total Protein 6.3 GM/DL Low 6.4-8.2 Albumin 2.9 GM/DL Low 3.2-5.2 Albumin/Globulin Ratio 0.9 Low 1.2-2.2 Laboratory test finding 11/30/[address] [address] [phone] Lipase 47 U/L Low 73-393 CBC With Differential 11/30/[address] [address] [phone] White Blood Count 15.2 10 High 4.0-10.0 [...] 36.0-66.0 Lymph % 7.3 % Low 24.0-44.0 [place] % 8.2 % High 2.0-8.0 Eos % 0.2 % Normal 0.0-3.0 Baso % 0.5 % Normal 0.0-1.0 Immature Granulocyte % 3.2 % High 0-3.0 Nucleated Red Blood Cell % 0.0 % Normal 0-0 Neutrophils # 12.2 10 High 1.5-8.5 Lymph # 1.1 10 Low 1.5-5.0 [place] # 1.3 10 High 0.0-0.8 Eos # 0.0 10 Normal 0.0-0.5 Baso # 0.1 10 Normal 0.0-0.2 Istat Chem8+ Panel 11/30/2020 [facility] nter [address] [place] [address] [phone] iSTAT HCT 46.0 % Normal 38.0-51.0 iSTAT Glucose 106 mg/dL High 70-105 iSTAT Sodium 136 mEq/L Normal 136-145 iSTAT Potassium 3.0 mEq/L Low 3.5-5.1 iSTAT CA++ 4.6 mg/dL Normal 4.5-5.3 iSTAT Chloride 92 mEq/L Low 98-109 iSTAT Co2 30.0 MM/L High 23.0-27.0 iSTAT BUN 4 mg/dL Low 8-26 iSTAT Creatinine 0.4 mg/dL Low 0.6-1.3 Basic Metabolic Profile 09/24/[address] [address] [phone] Glucose, Fasting 93 mg/dL Normal 70-100 Blood [...] mg/dL Normal 8.5-10.1 Laboratory test finding 09/24/[address] [address] [phone] Phosphorus Level 3.6 mg/dL Normal 2.5-4.9 Magnesium Level 1.9 mg/dL Normal 1.8-2.4 CBC With Differential 09/24/[address] [address] [phone] White Blood Count 7.0 10 Normal 4.0-10.0 [...] 36.0-66.0 Lymph % 14.8 % Low 24.0-44.0 [place] % 17.0 % High 2.0-8.0 Eos % 0.6 % Normal 0.0-3.0 Baso % 1.4 % High 0.0-1.0 Immature Granulocyte % 1.4 % Normal 0-3.0 Nucleated Red Blood Cell % 0.0 % Normal 0-0 Neutrophils # 4.5 10 Normal 1.5-8.5 Lymph # 1.0 10 Low 1.5-5.0 [place] # 1.2 10 High 0.0-0.8 Eos # 0.0 10 Normal 0.0-0.5 Baso # 0.1 10 Normal 0.0-0.2 Basic Metabolic Profile 09/17/[address] [address] [phone] Glucose, Fasting 96 mg/dL Normal 70-100 Blood [...] mg/dL Normal 8.5-10.1 Basic Metabolic Profile 09/16/[address] [address] [phone] Glucose, Fasting 92 mg/dL Normal 70-100 Blood [...] mg/dL Normal 8.5-10.1 Cardiac Marker Panel 08/16/2020 [facility] enter [address] [place] [address] [phone] CPK Creatine Phosphokinase 39 U/L Normal 26-19 2 CK-MB Value Mass < 1.0 NG/ML Normal <3.6 MB/CK Relative Index 2.56 Normal < Or =4 6 Troponin I < 0.02 NG/ML Normal < 0.10 7 Laboratory test finding 08/16/[address] [address] [phone] Magnesium Level 2.2 mg/dL Normal 1.8-2.4 Lipase 48 U/L Low 73-393 Liver Profile 08/16/2020 [facility] nter [address] [place] [address] [phone] Ast/Sgot 32 U/L Normal 7-37 Alt/SGPT 18 U/L Normal 12-78 Alkaline Phosphatase 142 U/L High 45-117 Bilirubin,Total 0.9 mg/dL Normal 0.2-1.0 Bilirubin,Direct 0.3 mg/dL High 0.0-0.2 Total Protein 6.2 GM/DL Low 6.4-8.2 Albumin 3.1 GM/DL Low 3.2-5.2 Albumin/Globulin Ratio 1.0 Low 1.2-2.2 CBC With Differential 08/16/[address] [phone] White Blood Count 12.8 10 High 4.0-10.0 [...] 36.0-66.0 Lymph % 10.8 % Low 24.0-44.0 [place] % 10.2 % High 2.0-8.0 Eos % 0.1 % Normal 0.0-3.0 Baso % 0.6 % Normal 0.0-1.0 Immature Granulocyte % 3.4 % High 0-3.0 Nucleated Red Blood Cell % 0.2 % High 0-0 Neutrophils # 9.6 10 High 1.5-8.5 Lymph # 1.4 10 Low 1.5-5.0 [place] # 1.3 10 High 0.0-0.8 Eos # 0.0 10 Normal 0.0-0.5 Baso # 0.1 10 Normal 0.0-0.2 Istat Chem8+ Panel 08/16/2020 [facility] nter [address] [place] [address] [phone] iSTAT HCT 42.0 % Normal 38.0-51.0 iSTAT Glucose 102 mg/dL Normal 70-105 iSTAT Sodium 137 mEq/L Normal 136-145 iSTAT Potassium 3.6 mEq/L Normal 3.5-5.1 iSTAT CA++ 4.4 mg/dL Low 4.5-5.3 iSTAT Chloride 96 mEq/L Low 98-109 iSTAT Co2 35.0 MM/L High 23.0-27.0 iSTAT BUN 8 mg/dL Normal 8-26 iSTAT Creatinine 0.8 mg/dL Normal 0.6-1.3 Lipid Profile 08/13/2020 [facility] Librarian Head: [place] [address] [phone] Cholesterol 110 mg/dL Low 131 - 200 Triglycerides 92 mg/dL 30 - 150 HDL Cholesterol 48 mg/dL 35 - 60 LDL (Calculated) 44 CALC Low 50 - 159 Laboratory test finding 08/13/2020 [facility] Librarian Head: [place] [address] [phone] Thyroid Stimulating Hormone 11.55 uIU/mL High 0. 36 - 3.74 Laboratory test finding 08/13/2020 [facility] Librarian Head: [place] [address] [phone] T4 Free 1.73 ng/dL High 0.76 - 1.46 Ua W/ Reflex To Culture 06/09/2020 [facility] [address] [place] [address] [phone] Appearance, Urine RFX CLEAR Normal Clear Color, Urine RFX COLORLESS Normal Yellow PH,Urine RFX 7.0 units Normal 5.0-9.0 Specific [place] Ur Auto RFX 1.000 Low 1.002-1.035 Protein, [...] /LPF Normal 0-1 Reflex Urine Culture 06/09/2020 [facility] [address] [place] [address] [phone] Reflex Urine Culture FULL REPORT IN L <SEE NOTE> Norm al 8 Comprehensive Metabolic Profil 06/09/[address] [address] [phone] Glucose, Fasting 87 mg/dL Normal 70-100 Blood [...] 1.2 Normal 1.2-2.2 Laboratory test finding 06/09/[address] [address] [phone] Magnesium Level 1.5 mg/dL Low 1.8-2.4 CBC With Differential 06/09/[address] [address] [phone] White Blood Count 4.5 10 Normal 4.0-10.0 [...] 36.0-66.0 Lymph % 26.1 % Normal 24.0-44.0 [place] % 12.9 % High 2.0-8.0 Eos % 1.3 % Normal 0.0-3.0 Baso % 1.3 % High 0.0-1.0 Immature Granulocyte % 0.2 % Normal 0-3.0 Nucleated Red Blood Cell % 0.0 % Normal 0-0 Neutrophils # 2.6 10 Normal 1.5-8.5 Lymph # 1.2 10 Low 1.5-5.0 [place] # 0.6 10 Normal 0.0-0.8 Eos # 0.1 10 Normal 0.0-0.5 Baso # 0.1 10 Normal 0.0-0.2 Laboratory test finding 06/09/2020 [facility] [address] [place] [address] [phone] Immature Platelet Fraction 4.2 % Normal 0.0-9 .59 1 DIAGNOSIS CRITERIA MMB ng/ml Relative Index (RI) NON-AMI < or = 5 N/A WILBURN ZONE > 5 < or = 4 AMI > 5 > 4 2 Troponin I Reference Interva l for Hycrete Butler LOCI: 99th Percentile= 0.00-0.045 ng/ml Risk Stratification: [...] Little GFR Left ESRD GFR <15 on PAPERBOARD BOXES ESTIMATOR 4 Units are mL/min/1.73 m2 Chronic Kidney Disease Staging per NKF: Stage I & II GFR >=60 Normal to Mildly Decreased Stage III GFR 30-59 Moderately Decreased Stage IV GFR 15-29 Severely Decreased Stage V GFR <15 Very Little GFR Left ESRD GFR <15 on PAPERBOARD BOXES ESTIMATOR 5 Units are mL/min/1.73 m2 Chronic Kidney Disease Staging per NKF: Stage I & II GFR >=60 Normal to Mildly Decreased Stage III GFR 30-59 Moderately Decreased Stage IV GFR 15-29 Severely Decreased Stage V GFR <15 Very Little GFR Left ESRD GFR <15 on PAPERBOARD BOXES ESTIMATOR 6 DIAGNOSIS CRITERIA MMB ng/ml Relative Index (RI) NON-AMI < or = 5 N/A WIL[place]URN ZONE > 5 < or = 4 AMI > 5 > 4 7 Troponin I Reference Interva l for [place]ash[place] LOCI: 99th Percentile= 0.00-0.045 ng/ml Risk Stratification: [...] Little GFR Left ESRD GFR <15 on PAPERBOARD BOXES ESTIMATOR 10 Scan Verified machine result s PLATELET COUNT LESS THAN 100, AND NEW OCCURANCE OR Procedures Date Code Description Status 08/13/2020 15104 Office/Outpatient Established Mo d MDM 30-39 Min Completed 11/27/2017 [id number] Colonoscopy Completed 12/29/2011 [id number] Colonoscopy Completed 09/14/2008 [id number] Colonoscopy Completed Medical Devices Description No Information Available Encounters Type Date Location Provider Dx Diagnosis Office Visit 08/13/2020 10:40a [facility] CLAIRE Sosa JR C18.6 Malignant [...] 02/16/2021 11:00 am - DAV Morales at [facility] 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
--- OUTSIDE RECORDS SUMMARY | 2021-02-11 09:51 | CCD ---
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 Name Role Phone Kwesi, Claudine ETIQUETTE COACH Unavailable Unavailable Kwesi, Claudine ETIQUETTE COACH Unavailable Unavailable Kwesi, Claudine ETIQUETTE COACH Unavailable Unavailable Kwesi, Claudine ETIQUETTE COACH Unavailable Unavailable Kwesi, Claudine ETIQUETTE COACH Unavailable Unavailable Kwesi, Claudine ETIQUETTE COACH Unavailable Unavailable Kwesi, Claudine ETIQUETTE COACH Unavailable Unavailable Kwesi, Claudine ETIQUETTE COACH Unavailable Unavailable Kwesi, Claudine ETIQUETTE COACH Unavailable Unavailable Kwesi, Claudine ETIQUETTE COACH Unavailable Unavailable Kwesi, Claudine ETIQUETTE COACH Unavailable Unavailable Kwesi, Claudine ETIQUETTE COACH Unavailable Unavailable Kwesi, Claudine ETIQUETTE COACH Unavailable Unavailable Kwesi, Claudine ETIQUETTE COACH Unavailable Unavailable Kwesi, Claudine ETIQUETTE COACH Unavailable Unavailable Kwesi, Claudine ETIQUETTE COACH Unavailable Unavailable Kwesi, Claudine ETIQUETTE COACH Unavailable Unavailable Kwesi, Claduine ETIQUETTE COACH Unavailable Unavailable Kwesi, Claudine ETIQUETTE COACH Unavailable Unavailable Kwesi, Claudine ETIQUETTE COACH Unavailable Unavailable Kwesi, Claudine ETIQUETTE COACH Unavailable Unavailable Kwesi, Claudine ETIQUETTE COACH Unavailable Unavailable Kwesi, Claudine ETIQUETTE COACH Unavailable Unavailable Kwesi, Claudine ETIQUETTE COACH Unavailable Unavailable Kwesi, Claudine ETIQUETTE COACH Unavailable Unavailable Kwesi, Claudine ETIQUETTE COACH Unavailable Unavailable Kwesi, Claudine ETIQUETTE COACH Unavailable Unavailable Kwesi, Claudine ETIQUETTE COACH Unavailable Unavailable Kwesi, Claudine ETIQUETTE COACH Unavailable Unavailable Kwesi, Claudine ETIQUETTE COACH Unavailable Unavailable Kwesi, Claudine ETIQUETTE COACH Unavailable Unavailable Kwesi, Claudine ETIQUETTE COACH Unavailable Unavailable Kwesi, Claudine ETIQUETTE COACH Unavailable Unavailable Kwesi, Claudine ETIQUETTE COACH Unavailable Unavailable Kwesi, Claudine ETIQUETTE COACH Unavailable Unavailable ALEX (ZEB), Joyce LICONA MD Unavailable Unavailab le ALEX (ZEB), Joyce LICONA MD Unavailable Unavailab le ALEX (ZEB), Joyce LICONA MD Unavailable Unavailab le ALEX (ZEB), Joyce LICONA MD Unavailable Unavailab le ALEX (ZEB), Joyce LICONA MD Unavailable Unavailab le ALEX (ZEB), Joyce LICONA MD Unavailable Unavailab le ALEX (ZEB), Joyce LICONA MD Unavailable Unavailab le ALEX (ZEB), Joyce LICONA MD Unavailable Unavailab le ALEX (ZEB), Joyce LICONA MD Unavailable Unavailab le ALEX (ZEB), Joyce LICONA MD Unavailable Unavailab le ALEX (ZEB), Joyce LICONA MD Unavailable Unavailab le ALEX (ZEB), Joyce LICONA MD Unavailable Unavailab le ALEX (ZEB), Joyce LICONA MD Unavailable Unavailab le ALEX (ZEB), Joyce LICONA MD Unavailable Unavailab le ALEX (ZEB), Joyce LICONA MD Unavailable Unavailab le ALEX (ZEB), Joyce LICONA MD Unavailable Unavailab le ALEX (ZEB), Joyce LICONA MD Unavailable Unavailab le ALEX (ZBE), Joyce LICONA MD Unavailable Unavailab le ALEX (ZEB), Joyce LICONA MD Unavailable Unavailab le ALEX (ZEB), Joyce LICONA MD Unavailable Unavailab le ALEX (ZEB), Joyce LICONA MD Unavailable Unavailab le ALEX (ZEB), Joyce LICONA MD Unavailable Unavailab le ALEX (ZEB), Joyce LICONA MD Unavailable Unavailab le ALEX (ZEB), Joyce LICONA MD Unavailable Unavailab le ALEX (ZEB), Joyce LICONA MD Unavailable Unavailab le ALEX (ZEB), Joyce LICONA MD Unavailable Unavailab le ALEX (ZEB), Joyce LICONA MD Unavailable Unavailab le ALEX (ZEB), Joyce LICONA MD Unavailable Unavailab le ALEX (ZEB), Joyce LICONA MD Unavailable Unavailab le ALEX (ZEB), Joyce LICONA MD Unavailable Unavailab le ALEX (ZEB), Joyce LICONA MD Unavailable Unavailab le ALEX (ZEB), Joyce LICONA MD Unavailable Unavailab le ALEX (ZEB), Joyce LICONA MD Unavailable Unavailab le ALEX (ZEB), Joyce LICONA MD Unavailable Unavailab le ALEX (ZEB), Joyce LICONA MD Unavailable Unavailab le ALEX (ZEB), Joyce LICONA MD Unavailable Unavailab le ALEX (ZEB), Joyce LICONA MD Unavailable Unavailab le ALEX (ZEB), Joyce LICONA MD Unavailable Unavailab le ALEX (ZEB), Joyce LICONA MD Unavailable Unavailab le ALEX (ZEB), Joyce LICONA MD Unavailable Unavailab le ALEX (ZEB), Joyce LICONA MD Unavailable Unavailab le ALEX (ZEB), Joyce LICONA MD Unavailable Unavailab le ALEX (ZEB), Joyce LICONA MD Unavailable Unavailab le ALEX (ZEB), Joyce LICONA MD Unavailable Unavailab le ALEX (ZEB), Joyce LICONA MD Unavailable Unavailab le ALEX (ZEB), Joyce LICONA MD Unavailable Unavailab le ALEX (ZEB), Joyce LICONA MD Unavailable Unavailab le ALEX (ZEB), Joyce LICONA MD Unavailable Unavailab le ALEX (ZEB), Joyce LICONA MD Unavailable Unavailab le ALEX (ZEB), Joyce LICONA MD Unavailable Unavailab le ALEX (ZEB), Joyce LICONA MD Unavailable Unavailab le ALEX (ZEB), Joyce LICONA MD Unavailable Unavailab le ALEX (ZEB), Joyce LICONA MD Unavailable Unavailab le ALEX (ZEB), Joyce LICONA MD Unavailable Unavailab le ALEX (ZEB), Joyce LICONA MD Unavailable Unavailab le ALEX (ZEB), Joyce LICONA MD Unavailable Unavailab le ALEX (ZEB), Joyce LICONA MD Unavailable Unavailab le ALEX (ZEB), Joyce LICONA MD Unavailable Unavailab le ALEX (ZEB), Joyce LICONA MD Unavailable Unavailab le ALEX (ZEB), Joyce LICONA MD Unavailable Unavailab le ALEX (ZEB), Joyce LICONA MD Unavailable Unavailab le ALEX (ZEB), Joyce LICONA MD Unavailable Unavailab le ALEX (ZEB), Joyce LICONA MD Unavailable Unavailab le ALEX (ZEB), Joyce LICONA MD Unavailable Unavailab le ALEX (ZEB), Joyce LICONA MD Unavailable Unavailab le ALEX (ZEB), Joyce LICONA MD Unavailable Unavailab le ALEX (ZEB), Joyce LICONA MD Unavailable Unavailab le ALEX (ZEB), Joyce LICONA MD Unavailable Unavailab le ALEX (ZEB), Joyce LICONA MD Unavailable Unavailab le ALEX (ZEB), Joyce LICONA MD Unavailable Unavailab le ALEX (ZEB), Joyce LICONA MD Unavailable Unavailab le ALEX (ZEB), Joyce LICONA MD Unavailable Unavailab le ALEX (ZEB), Joyce LICONA MD Unavailable Unavailab le ALEX (ZEB), Joyce LICONA MD Unavailable Unavailab le ALEX (ZEB), Joyce LICONA MD Unavailable Unavailab le ALEX (ZEB), Joyce LICONA MD Unavailable Unavailab le ALEX (ZEB), Joyce LICONA MD Unavailable Unavailab le ALEX (ZEB), Joyce LICONA MD Unavailable Unavailab le ALEX (ZEB), Joyce LICONA MD Unavailable Unavailab le ALEX (ZEB), Joyce LICONA MD Unavailable Unavailab le ALEX (ZEB), Joyce LICONA MD Unavailable Unavailab le ALEX (ZEB), Joyce LICONA MD Unavailable Unavailab le ALEX (ZEB), Joyce LICONA MD Unavailable Unavailab le ALEX (ZEB), Joyce LICONA MD Unavailable Unavailab le ALEX (ZEB), Joyce LICONA MD Unavailable Unavailab le ALEX (ZEB), Joyce LICONA MD Unavailable Unavailab le ALEX (ZEB), Joyce LICONA MD Unavailable Unavailab le Pham, J Holiness Unavailable + Pham, J Holiness Unavailable + Pham, J Holiness Unavailable + Pham, J Holiness Unavailable + Pham, J Holiness Unavailable + Pham, J Holiness Unavailable + Pham, J Holiness Unavailable + SHABNAM HURTADO Unavailable Unavailable SHABNAM HURTADO Unavailable Unavailable SHABNAM HURTADO Unavailable Unavailable SHABNAM HURTADO Unavailable Unavailable BRYANT, SHABNAM PA Unavailable Unavailable BRYANT, SHABNAM PA Unavailable Unavailable BRYANT, SHABNAM PA Unavailable Unavailable BRYANT, SHABNAM PA Unavailable Unavailable BRYANT, SHABNAM PA Unavailable Unavailable BRYANT, SHABNAM PA Unavailable Unavailable BRYANT, SHABNAM PA Unavailable Unavailable BRYANT, SHABNAM PA Unavailable Unavailable BRYANT, SHABNAM PA Unavailable Unavailable BRYANT, SHABNAM PA Unavailable Unavailable BRYANT, SHABNAM PA Unavailable Unavailable BRYANT, SHABNAM PA Unavailable Unavailable BRYANT, SHABNAM PA Unavailable Unavailable BRYANT, SHABNAM PA Unavailable Unavailable BRYANT, SHABNAM PA Unavailable Unavailable BRYANT, SHABNAM PA Unavailable Unavailable BRYANT, SHABNAM PA Unavailable Unavailable BRYANT, SHABNAM PA Unavailable Unavailable BRYANT, SHABNAM PA Unavailable Unavailable BRYANT, SHABNAM PA Unavailable Unavailable BRYANT, SHABNAM PA Unavailable Unavailable BRYANT, SHABNAM PA Unavailable Unavailable BRYANT, SHABNAM PA Unavailable Unavailable BRYANT, SHABNAM PA Unavailable Unavailable BRYANT, SHABNAM PA Unavailable Unavailable BRYANT, SHABNAM PA Unavailable Unavailable BRYANT, SHABNAM PA Unavailable Unavailable BRYANT, SHABNAM PA Unavailable Unavailable BRYANT, SHABNAM PA Unavailable Unavailable BRYANT, SHABNAM PA Unavailable Unavailable BRYANT, SHABNAM PA Unavailable Unavailable BRYANT, SHABNAM PA Unavailable Unavailable VERO .HazelSH . Unavailable Unavailable VERO . J MANUEL . Unavailable Unavailable [id number], NA Unavailable [phone] RING, K BELLA PA Unavailable Unavailable RING, K BELLA PA Unavailable Unavailable RING, K BELLA PA Unavailable Unavailable RING, K BELLA PA Unavailable Unavailable RING, K BELLA PA Unavailable Unavailable RING, K BELLA PA Unavailable Unavailable RING, K BELLA PA Unavailable Unavailable RING, K BELLA PA Unavailable Unavailable RING, K BELLA PA Unavailable Unavailable RING, K BELLA PA Unavailable Unavailable RING, K BELLA PA Unavailable Unavailable RING, K BELLA PA Unavailable Unavailable RING, K BELLA PA Unavailable Unavailable RING, K BELLA PA Unavailable Unavailable RING, K BELLA PA Unavailable Unavailable RING, K BELLA PA Unavailable Unavailable RING, K BELLA PA Unavailable Unavailable RING, K BELLA PA Unavailable Unavailable RING, K BELLA PA Unavailable Unavailable RING, K BELLA PA Unavailable Unavailable RING, K BELLA PA Unavailable Unavailable Agheli, Aref MD Unavailable Unavailable Agheli, Aref MD Unavailable Unavailable Agheli, Aref MD Unavailable Unavailable Agheli, Aref MD Unavailable Unavailable Agheli, Aref MD Unavailable Unavailable Agheli, Aref MD Unavailable Unavailable Agheli, Aref MD Unavailable Unavailable Agheli, Aref MD Unavailable Unavailable Agheli, Aref MD Unavailable Unavailable Agheli, Aref MD Unavailable Unavailable Agheli, Aref MD Unavailable Unavailable Agheli, Aref MD Unavailable Unavailable Agheli, Aref MD Unavailable Unavailable Agheli, Aref MD Unavailable Unavailable Agheli, Aref MD Unavailable Unavailable Agheli, Aref MD Unavailable Unavailable Agheli, Aref MD Unavailable Unavailable Agheli, Aref MD Unavailable Unavailable Agheli, Aref MD Unavailable Unavailable Agheli, Aref MD Unavailable Unavailable Agheli, Aref MD Unavailable Unavailable Agheli, Aref MD Unavailable Unavailable Agheli, Aref MD Unavailable Unavailable Agheli, Aref MD Unavailable Unavailable Agheli, Aref MD Unavailable Unavailable Agheli, Aref MD Unavailable Unavailable Agheli, Aref MD Unavailable Unavailable Agheli, Aref MD Unavailable Unavailable Agheli, Aref MD Unavailable Unavailable Agheli, Aref MD Unavailable Unavailable Agheli, Aref MD Unavailable Unavailable Agheli, Aref MD Unavailable Unavailable Agheli, Aref MD Unavailable Unavailable Agheli, Aref MD Unavailable Unavailable Agheli, Aref MD Unavailable Unavailable Agheli, Aref MD Unavailable Unavailable Agheli, Aref MD Unavailable Unavailable Agheli, Aref MD Unavailable Unavailable Agheli, Aref MD Unavailable Unavailable Agheli, Aref MD Unavailable Unavailable Agheli, Aref MD Unavailable Unavailable Agheli, Aref MD Unavailable Unavailable Agheli, Aref MD Unavailable Unavailable Agheli, Aref MD Unavailable Unavailable Agheli, Aref MD Unavailable Unavailable Agheli, Aref MD Unavailable Unavailable Agheli, Aref MD Unavailable Unavailable Agheli, Aref MD Unavailable Unavailable Agheli, Aref MD Unavailable Unavailable Agheli, Aref MD Unavailable Unavailable Agheli, Aref MD Unavailable Unavailable Agheli, Aref MD Unavailable Unavailable Agheli, Aref MD Unavailable Unavailable Agheli, Aref MD Unavailable Unavailable Agheli, Aref MD Unavailable Unavailable Agheli, Aref MD Unavailable Unavailable Grayson Frederickf Unavailable Unavailable Yoly Aref Unavailable Unavailable Yoly Aref Unavailable Unavailable Yoly Aref Unavailable Unavailable Mick, Subrat Unavailable Mick, Subrat Unavailable Mick, Subrat Unavailable Mick, Subrat Unavailable Macho Quintanilla MD Unavailable Unavailable Macho Quintanilla MD Unavailable Unavailable Macho Quintanilla MD Unavailable Unavailable Macho Quintanilla MD Unavailable Unavailable Macho Quintanilla MD Unavailable Unavailable Macho Quintanilla MD Unavailable Unavailable White, Briseida SPIKE DRIVER Unavailable Unavailable White, Briseida SPIKE DRIVER Unavailable Unavailable White, Briseida SPIKE DRIVER Unavailable Unavailable White, Briseida SPIKE DRIVER Unavailable Unavailable White, Briseida SPIKE DRIVER Unavailable Unavailable White, Briseida SPIKE DRIVER Unavailable Unavailable White, Briseida SPIKE DRIVER Unavailable Unavailable White, Briseida SPIKE DRIVER Unavailable Unavailable White, Briseida SPIKE DRIVER Unavailable Unavailable White, Briseida SPIKE DRIVER Unavailable Unavailable White, Briseida SPIKE DRIVER Unavailable Unavailable White, Briseida SPIKE DRIVER Unavailable Unavailable White, Briseida SPIKE DRIVER Unavailable Unavailable CLAUDINE HUBER Unavailable Unavailable Yanni José MD Unavailable Unavailable Yanni José MD Unavailable Unavailable Yanni José MD Unavailable Unavailable Yanni José MD Unavailable Unavailable Yanni José MD Unavailable Unavailable Yanni José MD Unavailable Unavailable Yanni José MD Unavailable Unavailable Yanni José MD Unavailable Unavailable Yanni José MD Unavailable Unavailable Yanni José MD Unavailable Unavailable Yanni José MD Unavailable Unavailable Yanni José MD Unavailable Unavailable Yanni José MD Unavailable Unavailable Yanni José MD Unavailable Unavailable Yanni José MD Unavailable Unavailable Yanni José MD Unavailable Unavailable Yanni José MD Unavailable Unavailable Yanni José MD Unavailable Unavailable Yanni José MD Unavailable Unavailable Yanni José MD Unavailable Unavailable Yanni José MD Unavailable Unavailable PlYanni stone MD Unavailable Unavailable PlYanni stone MD Unavailable Unavailable PlYanni stone MD Unavailable Unavailable PlYanni stone MD Unavailable Unavailable PlYanni stone MD Unavailable Unavailable PlYanni stone MD Unavailable Unavailable PlYanni stone MD Unavailable Unavailable PlYanni stone MD Unavailable Unavailable PlYanni stone MD Unavailable Unavailable PlYanni stone MD Unavailable Unavailable PlYanni stone MD Unavailable Unavailable PlYanni stone MD Unavailable Unavailable PlYanni stone MD Unavailable Unavailable PlYanni tsone MD Unavailable Unavailable PlYanni stone MD Unavailable Unavailable PlYanni stone MD Unavailable Unavailable Yanni José MD Unavailable Unavailable Yanni José MD Unavailable Unavailable Yanni José MD Unavailable Unavailable Yanni José MD Unavailable Unavailable Yanni José MD Unavailable Unavailable Yanni José MD Unavailable Unavailable Yanni José MD Unavailable Unavailable Yanni José MD Unavailable Unavailable Yanni José MD Unavailable Unavailable Yanni José MD Unavailable Unavailable Yanni José MD Unavailable Unavailable Yanni José MD Unavailable Unavailable Yanni José MD Unavailable Unavailable Yanni José MD Unavailable Unavailable Yanni José MD Unavailable Unavailable Yanni José MD Unavailable Unavailable Yanni José MD Unavailable Unavailable Yanni José MD Unavailable Unavailable Yanni José MD Unavailable Unavailable Yanni José MD Unavailable Unavailable Yanni José MD Unavailable Unavailable Yanni José MD Unavailable Unavailable Yanni José MD Unavailable Unavailable Yanni José MD Unavailable Unavailable Yanni José MD Unavailable Unavailable Yanni José MD Unavailable Unavailable Yanni José MD Unavailable Unavailable Yanni José MD Unavailable Unavailable Yanni José MD Unavailable Unavailable Yanni José MD Unavailable Unavailable Yanni José MD Unavailable Unavailable PlYanni stone MD Unavailable Unavailable Plocek, Yanni RIVERS Unavailable Unavailable Plocek, Yanni RIVERS Unavailable Unavailable Plocek, Yanni RIVERS Unavailable Unavailable Plocek, Yanni RIVERS Unavailable Unavailable Plocek, Yanni RIVERS Unavailable Unavailable Plocek, Yanni RIVERS Unavailable Unavailable Plocek, Yanni RIVERS Unavailable Unavailable CODY, B FREDRICK SPIKE DRIVER Unavailable Unavailable CODY, B FREDRICK SPIKE DRIVER Unavailable Unavailable CODY, B FREDRICK SPIKE DRIVER Unavailable Unavailable CODY, B FREDRICK SPIKE DRIVER Unavailable Unavailable CODY, B FREDRICK SPIKE DRIVER Unavailable Unavailable CODY, B FREDRICK SPIKE DRIVER Unavailable Unavailable CODY, B FREDRICK SPIKE DRIVER Unavailable Unavailable CODY, B FREDRICK SPIKE DRIVER Unavailable Unavailable CODY, B FREDRICK SPIKE DRIVER Unavailable Unavailable CODY, B FREDRICK SPIKE DRIVER Unavailable Unavailable CODY, B FREDRICK SPIKE DRIVER Unavailable Unavailable CODY, B FREDRICK SPIKE DRIVER Unavailable Unavailable CODY, B FREDRICK SPIKE DRIVER Unavailable Unavailable CODY, B FREDRICK SPIKE DRIVER Unavailable Unavailable CODY, B FREDRICK SPIKE DRIVER Unavailable Unavailable CODY, B FREDRICK SPIKE DRIVER Unavailable Unavailable CODY, B FREDRICK SPIKE DRIVER Unavailable Unavailable CODY, B FREDRICK SPIKE DRIVER Unavailable Unavailable CODY, B FREDRICK SPIKE DRIVER Unavailable Unavailable CODY, B FREDRICK SPIKE DRIVER Unavailable Unavailable CODY, B FREDRICK SPIKE DRIVER Unavailable Unavailable CODY, B FREDRICK SPIKE DRIVER Unavailable Unavailable CODY, B FREDRICK SPIKE DRIVER Unavailable Unavailable CODY, B FREDRICK SPIKE DRIVER Unavailable Unavailable CODY, B FREDRICK SPIKE DRIVER Unavailable Unavailable CODY, B FREDRICK SPIKE DRIVER Unavailable Unavailable CODY, B FREDRICK SPIKE DRIVER Unavailable Unavailable CODY, B FREDRICK SPIKE DRIVER Unavailable Unavailable CODY, B FREDRICK SPIKE DRIVER Unavailable Unavailable CODY, B FREDRICK SPIKE DRIVER Unavailable Unavailable CODY, B FREDRICK SPIKE DRIVER Unavailable Unavailable CODY, B FREDRICK SPIKE DRIVER Unavailable Unavailable CODY, B FREDRICK SPIKE DRIVER Unavailable Unavailable CODY, B FREDRICK SPIKE DRIVER Unavailable Unavailable CODY, B FREDRICK SPIKE DRIVER Unavailable Unavailable CODY, B FREDRICK SPIKE DRIVER Unavailable Unavailable CODY, B FREDRICK SPIKE DRIVER Unavailable Unavailable CODY, B FREDRICK SPIKE DRIVER Unavailable Unavailable CODY, B FREDRICK SPIKE DRIVER Unavailable Unavailable CODY, B FREDRICK SPIKE DRIVER Unavailable Unavailable CODY, B FREDRICK SPIKE DRIVER Unavailable Unavailable CODY, B FREDRICK SPIKE DRIVER Unavailable Unavailable CODY, B FREDRICK SPIKE DRIVER Unavailable Unavailable CODY, B FREDRICK SPIKE DRIVER Unavailable Unavailable CODY, B FREDRICK SPIKE DRIVER Unavailable Unavailable CODY, B FREDRICK SPIKE DRIVER Unavailable Unavailable CODY, B FREDRICK SPIKE DRIVER Unavailable Unavailable CODY, B FREDRICK SPIKE DRIVER Unavailable Unavailable CODY, B FREDRICK SPIKE DRIVER Unavailable Unavailable CODY, B FREDRICK SPIKE DRIVER Unavailable Unavailable CODY, B FREDRICK SPIKE DRIVER Unavailable Unavailable CODY, B FREDRICK SPIKE DRIVER Unavailable Unavailable CODY, B FREDRICK SPIKE DRIVER Unavailable Unavailable CODY, B FREDRICK SPIKE DRIVER Unavailable Unavailable CODY, B FREDRICK SPIKE DRIVER Unavailable Unavailable CODY, B FREDRICK SPIKE DRIVER Unavailable Unavailable CODY, B FREDRICK SPIKE DRIVER Unavailable Unavailable CODY, B FREDRICK SPIKE DRIVER Unavailable Unavailable CODY, B FREDRICK SPIKE DRIVER Unavailable Unavailable CODY, B FREDRICK SPIKE DRIVER Unavailable Unavailable CODY, B FREDRICK SPIKE DRIVER Unavailable Unavailable CODY, B FREDRICK SPIKE DRIVER Unavailable Unavailable PICKERAL JR, J CAMPOS PA-C Unavailable Unavailable PICKERAL JR, J CAMPOS PA-C Unavailable Unavailable PICKERAL JR, J CAMPOS PA-C Unavailable Unavailable PICKERAL JR, J CAMPOS PA-C Unavailable Unavailable PICKERAL JR, J CAMPOS PA-C Unavailable Unavailable PICKERAL JR, J CAMPOS PA-C Unavailable Unavailable PICKERAL JR, J CAMPOS PA-C Unavailable Unavailable PICKERAL JR, J CAMPOS PA-C Unavailable Unavailable PICKERAL JR, J CAMPOS PA-C Unavailable Unavailable PICKERAL JR, J CAMPOS PA-C Unavailable Unavailable PICKERAL JR, J CAMPOS PA-C Unavailable Unavailable PICKERAL JR, J CAMPOS PA-C Unavailable Unavailable PICKERAL JR, J CAMPOS PA-C Unavailable Unavailable PICKERAL JR, J CAMPOS PA-C Unavailable Unavailable PICKERAL JR, J CAMPOS PA-C Unavailable Unavailable PICKERAL JR, J CAMPOS PA-C Unavailable Unavailable PICKERAL JR, J CAMPOS PA-C Unavailable Unavailable PICKERAL JR, J CAMPOS PA-C Unavailable Unavailable PICKERAL JR, J CAMPOS PA-C Unavailable Unavailable PICKERAL JR, J CAMPOS PA-C Unavailable Unavailable PICKERAL JR, J CAMPOS PA-C Unavailable Unavailable PICKERAL JR, J CAMPOS PA-C Unavailable Unavailable PICKERAL JR, J CAMPOS PA-C Unavailable Unavailable PICKERAL JR, J CAMPOS PA-C Unavailable Unavailable PICKERAL JR, J CAMPOS PA-C Unavailable Unavailable PICKERAL JR, J CAMPOS PA-C Unavailable Unavailable PICKERAL JR, J CAMPOS PA-C Unavailable Unavailable Ayanna Silver MD Unavailable Unavailable Ayanna Silver MD Unavailable Unavailable SilverAyanna bullock MD Unavailable Unavailable SilverAyanna bullock MD Unavailable Unavailable SilverAyanna bullock MD Unavailable Unavailable SilverAyanna bullock MD Unavailable Unavailable SilverAyanna bullock MD Unavailable Unavailable SilverAyanna bullock MD Unavailable Unavailable SilverAyanna bullock MD Unavailable Unavailable SilverAyanna bullock MD Unavailable Unavailable SilverAyanna bullock MD Unavailable Unavailable SilverAyanna bullock MD Unavailable Unavailable SilverAyanna bullock MD Unavailable Unavailable SilverAyanna bullock MD Unavailable Unavailable SilverAyanna bullock MD Unavailable Unavailable SilverAyanna bullock MD Unavailable Unavailable SilverAyanna bullock MD Unavailable Unavailable SilverAyanna bullock MD Unavailable Unavailable SilverAyanna bullock MD Unavailable Unavailable SilverAyanna bullock MD Unavailable Unavailable SilverAyanna bullock MD Unavailable Unavailable SilverAyanna bullock MD Unavailable Unavailable SilverAyanna bullock MD Unavailable Unavailable Ayanna Silver MD Unavailable Unavailable SilverAyanna bullock MD Unavailable Unavailable Ayanna Silver MD Unavailable Unavailable Ayanna Silver MD Unavailable Unavailable Ayanna Silver MD Unavailable Unavailable Ayanna Silver MD Unavailable Unavailable Ayanna Silver MD Unavailable Unavailable Ayanna Silver MD Unavailable Unavailable Ayanna Silver MD Unavailable Unavailable Ayanna Silver MD Unavailable Unavailable Ayanna Silver MD Unavailable Unavailable Ayanna Silver MD Unavailable Unavailable Ayanna Silver MD Unavailable Unavailable Ayanna Silver MD Unavailable Unavailable Ayanna Silver MD Unavailable Unavailable Ayanna Silver MD Unavailable Unavailable Ayanna Silver MD Unavailable Unavailable Ayanna Silver MD Unavailable Unavailable Ayanna Silver MD Unavailable Unavailable Ayanna Silver MD Unavailable Unavailable Ayanna Silver MD Unavailable Unavailable Ayanna Silver MD Unavailable Unavailable Ayanna Silver MD Unavailable Unavailable Ayanna Silver MD Unavailable Unavailable Ayanna Silver MD Unavailable Unavailable Ayanna Silver MD Unavailable Unavailable Ayanna Silver MD Unavailable Unavailable Ayanna Silver MD Unavailable Unavailable Ayanna Silver MD Unavailable Unavailable SilverAyanna bullock MD Unavailable Unavailable SilverAyanna bullock MD Unavailable Unavailable SilverAyanna bullock MD Unavailable Unavailable SilverAyanna bullock MD Unavailable Unavailable SilverAyanna bullock MD Unavailable Unavailable SilverAyanna bullock MD Unavailable Unavailable SilverAyanna ubllock MD Unavailable Unavailable SilverAyanna bullock MD Unavailable Unavailable SilverAyanna bullock MD Unavailable Unavailable SilverAyanna bullock MD Unavailable Unavailable SilverAyanna bullock MD Unavailable Unavailable SilverAyanna bullock MD Unavailable Unavailable SilverAyanna bullock MD Unavailable Unavailable SilverAyanna bullock MD Unavailable Unavailable SilverAyanna bullock MD Unavailable Unavailable SilverAyanna bullock MD Unavailable Unavailable SilverAyanna bullock MD Unavailable Unavailable SilverAyanna bullock MD Unavailable Unavailable SilverAyanna bullock MD Unavailable Unavailable SilverAyanna bullock MD Unavailable Unavailable SilverAyanna bullock MD Unavailable Unavailable Ayanna Silver MD Unavailable Unavailable SilverAyanna bullock MD Unavailable Unavailable Ayanna Silver MD Unavailable Unavailable Ayanna Silver MD Unavailable Unavailable Ayanna Silver MD Unavailable Unavailable Ayanna Silver MD Unavailable Unavailable Ayanna Silver MD Unavailable Unavailable Ayanna Silver MD Unavailable Unavailable Ayanna Silver MD Unavailable Unavailable Ayanna Silver MD Unavailable Unavailable Ayanna Silver MD Unavailable Unavailable Ayanna Silver MD Unavailable Unavailable Ayanna Silver MD Unavailable Unavailable Ayanna Silver MD Unavailable Unavailable Ayanna Silver MD Unavailable Unavailable Ayanna Silver MD Unavailable Unavailable Ayanna Silver MD Unavailable Unavailable Ayanna Silver MD Unavailable Unavailable Ayanna Silver MD Unavailable Unavailable Ayanna Silver MD Unavailable Unavailable Ayanna Silver MD Unavailable Unavailable Ayanna Silver MD Unavailable Unavailable Ayanna Silver MD Unavailable Unavailable Ayanna Silver MD Unavailable Unavailable Ayanna Silver MD Unavailable Unavailable Ayanna Silver MD Unavailable Unavailable Ayanna Silver MD Unavailable Unavailable Aaynna Silver MD Unavailable Unavailable Ayanna Silver MD Unavailable Unavailable SilverAyanna bullock MD Unavailable Unavailable SilverAyanna bullock MD Unavailable Unavailable SilverAyanna bullock MD Unavailable Unavailable SilverAyanna bullock MD Unavailable Unavailable SilverAyanna bullock MD Unavailable Unavailable SilverAyanna bullock MD Unavailable Unavailable SilverAyanna bullock MD Unavailable Unavailable SilverAyanna bullock MD Unavailable Unavailable SilverAyanna bullock MD Unavailable Unavailable SilverAyanna bullock MD Unavailable Unavailable SilverAyanna bullock MD Unavailable Unavailable SilverAyanna bullock MD Unavailable Unavailable SilverAyanna bullock MD Unavailable Unavailable SilverAyanna bullock MD Unavailable Unavailable SilverAyanna bullock MD Unavailable Unavailable SilverAyanna bullock MD Unavailable Unavailable SilverAyanna bullock MD Unavailable Unavailable SilverAyanna bullock MD Unavailable Unavailable SilverAyanna bullock MD Unavailable Unavailable SilverAyanna bullock MD Unavailable Unavailable SilverAyanna bullock MD Unavailable Unavailable Ayanna Silver MD Unavailable Unavailable SilverAyanna bullock MD Unavailable Unavailable Ayanna Silver MD Unavailable Unavailable Ayanna Silver MD Unavailable Unavailable Ayanna Silver MD Unavailable Unavailable Ayanna Silver MD Unavailable Unavailable Ayanna Silver MD Unavailable Unavailable Ayanna Silver MD Unavailable Unavailable Ayanna Silver MD Unavailable Unavailable Ayanna Silver MD Unavailable Unavailable Ayanna Silver MD Unavailable Unavailable Ayanna Silver MD Unavailable Unavailable Ayanna Silver MD Unavailable Unavailable Ayanna Silver MD Unavailable Unavailable Ayanna Silver MD Unavailable Unavailable Ayanna Silver MD Unavailable Unavailable Ayanna Silver MD Unavailable Unavailable Ayanna Silver MD Unavailable Unavailable Ayanna Silver MD Unavailable Unavailable Ayanna Silver MD Unavailable Unavailable Ayanna Silver MD Unavailable Unavailable Ayanna Silver MD Unavailable Unavailable Ayanna Silver MD Unavailable Unavailable Ayanna Silver MD Unavailable Unavailable Ayanna Silver MD Unavailable Unavailable Ayanna Silver MD Unavailable Unavailable Ayanna Silver MD Unavailable Unavailable Ayanna Silver MD Unavailable Unavailable Ayanna Silver MD Unavailable Unavailable Silver, Ayanna Pereira MD Unavailable Unavailable Silver, Ayanna Pereira MD Unavailable Unavailable Silver, Ayanna Pereira MD Unavailable Unavailable Silver, Ayanna Pereira MD Unavailable Unavailable MICK, SUBRAT . Unavailable Unavailable MICK, SUBRAT . Unavailable Unavailable Demertius, C Cody PH.D., M.D. Unavailable Unavailable Demetrius, C Cody PH.D., M.D. Unavailable Unavailable Demetrius, C Cody PH.D., M.D. Unavailable Unavailable Demetrius, C Cody PH.D., M.D. Unavailable Unavailable Demetrius, C Cody PH.D., M.D. Unavailable Unavailable Demetrius, C Cody PH.D., M.D. Unavailable Unavailable Demetrius, C Cody PH.D., M.D. Unavailable Unavailable Demetrius, C Cody PH.D., M.D. Unavailable Unavailable Demetrius, C Cdoy PH.D., M.D. Unavailable Unavailable Demetrius, C Cody PH.D., M.D. Unavailable Unavailable Demetrius, C Cody PH.D., M.D. Unavailable Unavailable Demetrius, C Cody PH.D., M.D. Unavailable Unavailable Demetrius, C Cody PH.D., M.D. Unavailable Unavailable Demetrius, C Cody PH.D., M.D. Unavailable Unavailable Demetrius, C Cody PH.D., M.D. Unavailable Unavailable Demetrius, C Cody PH.D., M.D. Unavailable Unavailable Demetrius, C Cody PH.D., M.D. Unavailable Unavailable Demetrius, C Cody PH.D., M.D. Unavailable Unavailable Demetrius, C Cody PH.D., M.D. Unavailable Unavailable Demetrius, C Cody PH.D., M.D. Unavailable Unavailable Demetrius, C Cody PH.D., M.D. Unavailable Unavailable Demetrius, C Cody PH.D., M.D. Unavailable Unavailable Demetrius, C Cody PH.D., M.D. Unavailable Unavailable Demetrius, C Cody PH.D., M.D. Unavailable Unavailable Demetrius, C Cody PH.D., M.D. Unavailable Unavailable Demetrius, C Cody PH.D., M.D. Unavailable Unavailable Demetrius, C Cody PH.D., M.D. Unavailable Unavailable Demetrius, C Cody PH.D., M.D. Unavailable Unavailable Demetrius, C Cody PH.D., M.D. Unavailable Unavailable Demetrius, C Cody PH.D., M.D. Unavailable Unavailable Demetrius, C Cody PH.D., M.D. Unavailable Unavailable Demetrius, C Cody PH.D., M.D. Unavailable Unavailable Demetrius, C Cody PH.D., M.D. Unavailable Unavailable Demetrius, C Cody PH.D., M.D. Unavailable Unavailable Demetrius, C Cody PH.D., M.D. Unavailable Unavailable Demetrius, C Cody PH.D., M.D. Unavailable Unavailable Demetrius, C Cody PH.D., M.D. Unavailable Unavailable Demetrius, C Cody PH.D., M.D. Unavailable Unavailable Demetrius, C Cody PH.D., M.D. Unavailable Unavailable Demetrius, C Cody PH.D., M.D. Unavailable Unavailable Demetrius, C Cody PH.D., M.D. Unavailable Unavailable Demetrius, C Cody PH.D., M.D. Unavailable Unavailable Demetrius, C Cody PH.D., M.D. Unavailable Unavailable Demetrius, C Cody PH.D., M.D. Unavailable Unavailable Demetrius, C Cody PH.D., M.D. Unavailable Unavailable Demetrius, C Cody PH.D., M.D. Unavailable Unavailable Demetrius, C Cody PH.D., M.D. Unavailable Unavailable Demetrius, C Cody PH.D., M.D. Unavailable Unavailable Demetrius, C Cody PH.D., M.D. Unavailable Unavailable Demetrius, C Cody PH.D., M.D. Unavailable Unavailable Demetrius, C Cody PH.D., M.D. Unavailable Unavailable Demetrius, C Cody PH.D., M.D. Unavailable Unavailable Demetrius, C Cody PH.D., M.D. Unavailable Unavailable Demetrius, C Cody PH.D., M.D. Unavailable Unavailable Demetrius, C Cody PH.D., M.D. Unavailable Unavailable Demetrius, C Cody PH.D., M.D. Unavailable Unavailable Demetrius, C Cody PH.D., M.D. Unavailable Unavailable Demetrius, C Cody PH.D., M.D. Unavailable Unavailable Demetrius, C Cody PH.D., M.D. Unavailable Unavailable Demetrius, C Cody PH.D., M.D. Unavailable Unavailable Demetrius, C Cody PH.D., M.D. Unavailable Unavailable Demetrius, C Cody PH.D., M.D. Unavailable Unavailable Demetrius, C Cody PH.D., M.D. Unavailable Unavailable Demetrius, Deja Ross PH.D., M.D. Unavailable Unavailable Demetrius, Deja Ross PH.D., M.D. Unavailable Unavailable Demetrius, Deja Ross PH.D., M.D. Unavailable Unavailable Demetrius, Deja Ross PH.D., M.D. Unavailable Unavailable Demetrius, Deja Ross PH.D., M.D. Unavailable Unavailable Demetrius, Deja Ross PH.D., M.D. Unavailable Unavailable Demetrius, Deja Ross PH.D., M.D. Unavailable Unavailable Demetrius, Deja Ross PH.D., M.D. Unavailable Unavailable Demetrius, Deja Ross PH.D., M.D. Unavailable Unavailable Demetrius, Deja Ross PH.D., M.D. Unavailable Unavailable Demetrius, Deja Ross PH.D., M.D. Unavailable Unavailable Demetrius, Deja Ross PH.D., M.D. Unavailable Unavailable Demetrius, Deja Ross PH.D., M.D. Unavailable Unavailable Demetrius, Deja Ross PH.D., M.D. Unavailable Unavailable Demetrius, Deja Ross PH.D., M.D. Unavailable Unavailable Demetrius, Deja Ross PH.D., M.D. Unavailable Unavailable Demetrius, Deja Ross PH.D., M.D. Unavailable Unavailable Demetrius, Deja Ross PH.D., M.D. Unavailable Unavailable Demetrius, Deja Ross PH.D., M.D. Unavailable Unavailable Re-disclosure Warning The records that you are about to access may contain information from federally-assisted alcohol or drug abuse programs. If such information is present, then the following federally mandated warning applies: This information has been disclosed to you from records protected by federal confidentiality rules (42 CFR part 2). The federal rules prohibit you from making any further disclosure of this information unless further disclosure is expressly permitted by the written consent of the person to whom it pertains or as otherwise permitted by 42 CFR part 2. A general authorization for the release of medical or other information is NOT sufficient for this purpose. The Federal rules restrict any use of the information to criminally investigate or prosecute any alcohol or drug abuse patient.The records that you are about to access may contain highly sensitive health information, the redisclosure of which is protected by Article 27-F of the [place] Public Health law. If you continue you may have access to information: Regarding HIV / AIDS; Provided by facilities licensed or operated by the [place] Office of Mental Health; or Provided by the [place] Office for People With Developmental Disabilities. If such information is present, then the following [place] mandated warning applies: This information has been disclosed to you from confidential records which are protected by state law. State law prohibits you from making any further disclosure of this information without the specific written consent of the person to whom it pertains, or as otherwise permitted by law. Any unauthorized further disclosure in violation of state law may result in a fine or correction sentence or both. A general authorization for the release of medical or other information is NOT sufficient authorization for further disc losure. Allergies and Adverse Reactions Type Description Substance Reaction Status Data Source(s ) Drug allergy No Known Drug Allergies No Known Drug Allergies [facility] Family History Family Member Name Family Member Gender Family Member Status Date o f Status Description Data Source(s) Unknown Unknown Problem [facility] ([facility]) Unknown Unknown Problem [facility] ([facility] BROTHER Unknown Male Problem [facility] ([facility]) () - 01/2016 Unknown Female Problem [facility] ([facility]) Unknown Female Problem [facility] ([facility] Unknown Female Problem [facility] ([facility]) Unknown Female Problem [facility] ([facility]) Unknown Female Problem [facility] ([facility]) Unknown Female Problem [facility] ([facility]) Encounters Encounter Providers Location Date Indications Data Source(s ) Outpatient Attender: Dominik SoanalAttender: DOMINIK HAND . 02/14/2021 12:00:[address] [facility] Outpatient Attender: FREDRICK ROSS NP Physical Therapy 11:15:00 AM EDT [facility] ([facility]) Outpatient Attender: Bijan Frederick MDReferrer: Randall carrera MD [id number] 02/02/2021 05:43:38 PM EDT [facility] [place] Attender: Bijan AREVALOeferrer: Randall carrera MD [id number] 01/31/2021 01:15:37 PM EDT [facility] Attender: Bijan Frederick MDReferrer: Randall carrera MD _[id number] 01/29/2021 11:21:19 AM EDT [facility] Outpatient Attender: Bijan Frederick MDReferrer: Randall carrera MD _[id number] 01/06/2021 06:08:33 PM EDT [facility] Outpatient Attender: Bijan Frederick MDReferrer: Randall carrera MD _[id number] 12/31/2020 01:23:08 PM EDT [facility] Outpatient Attender: Bijan Frederick MDReferrer: Randall carrera MD _[id number] 12/27/2020 03:31:40 PM EDT [facility] Outpatient Attender: Cody Romo PH.D., M.D. Rachel/Teetee/Marah montoya/Blake 12/23/2020 08:45:00 AM EDT [facility] ([facility] ) Outpatient Admitter: Macho Quintanilla MDReferrer: Macho Quintanilla MD 12/20/2020 12:00:00 AM EDT Disorder of thyroid, unspecified [facility] Disorder of thyroid, unspecified Outpatient Attender: Bijan Frederick MDReferrer: Randall carrera MD _[id number] 12/16/2020 02:54:29 PM EDT [facility] Outpatient Attender: Bijan Galvanzainab MDReferrer: Randall carrera MD _[id number] 12/13/2020 12:43:15 PM EDT [facility] Outpatient Attender: Bijan Galvanzainab MDReferrer: Randall carrera MD _[id number] 12/09/2020 02:29:52 PM EDT [facility] Outpatient Attender: Bijan Galvanzainab MDReferrer: Randall carrera MD [id number] 12/09/2020 02:09:50 PM EDT [facility] Outpatient Attender: Areyanet Frederick MDReferrer: Randall carrera MD _[id number] 12/07/2020 08:13:45 PM EDT [facility] Outpatient Attender: Areyanet Frederick MDReferrer: Randall carrera MD _[id number] 12/07/2020 04:42:20 PM EDT [facility] Outpatient Attender: Areyanet Frederick MDReferrer: Randall carrera MD _[id number] 12/02/2020 02:08:36 PM EDT [facility] Outpatient Attender: Bijan Frederick MDReferrer: Randall carrera MD _[id number] 12/02/2020 01:38:17 PM EDT [facility] Outpatient Attender: Cody Romo PH.D., M.D. Rachel/Teetee/Marah montoya/Blake 12/01/2020 10:45:00 AM EDT [facility] ([facility] ) Outpatient Attender: Areyanet Frederick MDReferrer: Randall carrera MD _[id number] 11/27/2020 11:41:45 AM EDT [facility] Outpatient Attender: Bijan Frederick MDReferrer: Randall carrera MD _[id number] 11/23/2020 04:59:25 PM EDT [facility] Outpatient Attender: Areyanet Frederick MDReferrer: Randall carrera MD _[id number] 11/18/2020 01:05:35 PM EDT [facility] Outpatient Attender: Bijan Frederick MDReferrer: Randall carrera MD _[id number] 11/17/2020 12:54:20 PM EDT [facility] Outpatient Attender: Areyanet Frederick MDReferrer: Randall carrera MD _[id number] 11/16/2020 01:03:01 PM EDT [facility] Outpatient Attender: Areyanet Agerick MDReferrer: Randall carrera MD _[id number] 11/16/2020 12:30:12 PM EDT [facility] Outpatient Attender: Areyanet Frederick MDReferrer: Randall carrera MD _[id number] 11/09/2020 12:40:29 PM EDT [facility] Outpatient Attender: Areyanet Agerick MDReferrer: Randall carrera MD _[id number] 11/09/2020 12:40:21 PM EDT [facility] Outpatient Attender: Areyanet Frederick MDReferrer: Randall carrera MD _[id number] 11/04/2020 03:14:06 PM EDT [facility] Outpatient Attender: Areyanet Frederick MDReferrer: Randall carrera MD _[id number] 11/04/2020 03:13:58 PM EDT [facility] OFFICE OUTPATIENT VISIT 15 MINUTES Attender: FREDRICK ROSS NP Physical Therapy 11/03/2020 10:45:00 AM EDT [facility] ([facility]) Outpatient Attender: Areyanet Frederick MDReferrer: Randall carrera MD _[id number] 11/01/2020 06:02:49 PM EDT [facility] Outpatient Attender: Areyanet Frederick MDReferrer: Randall carrera MD _[id number] 10/30/2020 11:19:17 AM EDT [facility] Outpatient Attender: Areyanet Agerick MDReferrer: Randall carrera MD _[id number] 10/26/2020 01:42:10 PM EDT [facility] Outpatient Attender: Areyanet Agmireillezainab MDReferrer: Randall carrera MD _[id number] 10/26/2020 01:42:09 PM EDT [facility] Outpatient Attender: Bijan Frederick MDReferrer: Randall carrera MD _[id number] 10/21/2020 02:49:31 PM EDT [facility] Outpatient Attender: Bijan Frederick MDReferrer: Randall carrera MD _[id number] 10/21/2020 02:49:20 PM EDT [facility] Outpatient Attender: Bijan Frederick MDReferrer: Randall carrera MD _[id number] 10/19/2020 06:46:03 PM EDT [facility] Outpatient Attender: Bijan Frederick MDReferrer: Randall carrera MD _[id number] 10/12/2020 01:58:12 PM EDT [facility] Outpatient Attender: Bijan Frederick MDReferrer: Randall carrera MD _[id number] 10/07/2020 02:14:35 PM EDT [facility] Outpatient 10/01/2020 01:00:00 PM EDT [facility] Outpatient Attender: Bijan Frederick MDReferrer: Randall carrera MD _[id number] 09/29/2020 08:30:18 PM EDT [facility] Out[facility] Attender: Bijan Frederick MDReferrer: Randall carrera MD _[id number] 09/29/2020 12:44:08 PM EDT [facility] Outpatient Attender: SHABNAM tucker 09/27/2020 03:10:00 PM EDT [facility] ([facility]) Outpatient Attender: Bijan Frederick MDReferrer: Randall carrera MD _[id number] 09/26/2020 11:16:46 AM EDT [facility] Attender: LIVAN JOHNSON MD ([place]) 08:21:06 PM EDT [facility] Attender: LIVAN JOHNSON MD ([place]) 08:21:06 PM EDT [facility] Out[facility] Attender: Areyanet Galvanzainab MDReferrer: Randall carrera MD [id number] 09/14/2020 02:55:53 PM EDT [facility] Outpatient Attender: Aref Pberick MDReferrer: Randall carrera MD [id number] 09/14/2020 02:55:39 PM EDT [facility] Outpatient Attender: Briseida jimenez 09/11/2020 01:40:00 PM EDT [facility] ([facility]) Outpatient Attender: Areyanet Ambrizerick MDReferrer: Randall carrera MD [id number] 09/07/2020 05:08:38 PM EDT [facility] Outpatient Attender: Aref Pberick MDReferrer: Randall carrera MD [id number] 09/07/2020 04:47:59 PM EDT [facility] Outpatient Attender: Graysonyanet Ambrizerick MDReferrer: Randall carrera MD [id number] 09/06/2020 06:51:33 PM EDT [facility] Outpatient Attender: Graysonyanet Yoly MDReferrer: Randall carrera MD _[id number] 09/06/2020 06:51:00 PM EDT [facility] Attender: LIVAN JOHNSON MD ([place]) 08:21:06 PM EDT [facility] Out[facility] Attender: Graysonyanet Ambrizerick MDReferrer: Randall carrera MD [id number] 09/02/2020 03:32:53 PM EDT [facility] Outpatient Attender: Aref Yoly MDReferrer: Randall carrera MD _[id number] 09/02/2020 02:48:02 PM EDT [facility] Outpatient Attender: Bijan Frederick MDReferrer: Randall carrera MD _[id number] 09/02/2020 02:29:33 PM EDT [facility] Outpatient Attender: Bijan Frederick MDReferrer: Randall carrera MD _[id number] 09/01/2020 03:09:14 PM EDT [facility] Outpatient Attender: Areyanet Frederick MDReferrer: Randall carrera MD _[id number] 08/31/2020 01:26:12 PM EDT [facility] Outpatient Attender: Bijan Frederick MDReferrer: Randall carrera MD _[id number] 08/26/2020 06:07:35 PM EDT [facility] Out[facility] Attender: Bijan Frederick MDReferrer: Randall carrera MD _[id number] 08/26/2020 02:43:21 PM EDT [facility] Outpatient Attender: FREDRICK ROSS NP Physical Therapy 04:15:00 PM EDT [facility] ([facility]) Outpatient Attender: Bijan Frederick MDReferrer: Randall carrera MD _[id number] 08/23/2020 04:22:45 PM EDT [facility] Out[facility] Attender: Bijan Frederick MDReferrer: Randall carrera MD _[id number] 08/20/2020 05:56:50 PM EDT [facility] Outpatient Attender: Bijan Frederick MDReferrer: Randall carrera MD _[id number] 08/18/2020 03:49:11 PM EDT [facility] Outpatient Attender: CAMPOS Bello 08/13/2020 10:40:00 AM EDT [facility] ([facility] ) Outpatient Attender: Areyanet Agerick MDReferrer: Randall carrera MD _[id number] 08/12/2020 04:46:49 PM EDT [facility] Outpatient Attender: Aref Agmireillei MDReferrer: Randall carrera MD _[id number] 08/06/2020 04:56:21 PM EDT [facility] Outpatient Attender: Aref Agmireillei MDReferrer: Randall carrera MD _[id number] 08/04/2020 03:15:02 PM EDT [facility] Outpatient Attender: Aref Agmireillei MDReferrer: Randall carrera MD _[id number] 08/03/2020 06:01:29 PM EDT [facility] Outpatient Attender: Aref Agmireillei MDReferrer: Randall carrera MD _[id number] 08/01/2020 11:17:12 AM EDT [facility] Outpatient Attender: Aref Agmireillei MDReferrer: Randall carrera MD _[id number] 07/28/2020 04:46:45 PM EDT [facility] Outpatient Attender: Aref Agmireillei MDReferrer: Randall carrera MD _[id number] 07/28/2020 04:45:34 PM EDT [facility] Outpatient Attender: Aref Agmireillei MDReferrer: Randall carrera MD _[id number] 07/26/2020 02:04:16 PM EDT [facility] Outpatient Attender: Aref Agmireillei MDReferrer: Randall carrera MD _[id number] 07/26/2020 02:02:26 PM EDT [facility] Outpatient Attender: Aref Agmireillei MDReferrer: Randall carrera MD _[id number] 07/26/2020 01:14:13 PM EDT [facility] Attender: LIVAN JOHNSON MD ([place]) 1 08:21:04 PM EDT [facility] Attender: LIVAN JOHNSON MD ([place]) 1 08:21:04 PM EDT [facility] Attender: LIVAN JOHNSON MD ([place]) 1 08:21:04 PM EDT [facility] Attender: LIVAN JOHNSON MD ([place]) 1 08:21:04 PM EDT [facility] Attender: LIVAN JOHNSON MD ([place]) 08:21:04 PM EDT [facility] Attender: LIVAN JOHNSON MD ([place]) 08:21:04 PM EDT [facility] Attender: LIVAN JOHNSON MD ([place]) 08:21:04 PM EDT [facility] Out[facility] Attender: Aref Agmireillei MDReferrer: Randall carrera MD [id number] 07/22/2020 04:08:34 PM EDT [facility] Out[facility] Attender: Aref Agheli MDReferrer: Randall carrera MD [id number] 07/22/2020 04:08:27 PM EDT [facility] Out[facility] Attender: Aref Agheli MDReferrer: Randall carrera MD [id number] 07/21/2020 02:16:24 PM EDT [facility] Outpatient Attender: Aref Agheli MDReferrer: Randall carrera MD [id number] 07/21/2020 02:15:06 PM EDT [facility] Out[facility] Attender: Aref Agheli MDReferrer: Randall carrera MD [id number] 07/12/2020 07:14:08 AM EDT [facility] Out[facility] Attender: Bijan Frederick MDReferrer: Randall carrera MD [id number] 07/12/2020 06:48:00 AM EDT [facility] Out[facility] Attender: Bijan Frederick MDReferrer: Randall carrera MD _[id number] 07/06/2020 10:18:10 AM EDT [facility] Attender: Bijan Frederick MDReferrer: Randall carrera MD _[id number] 07/06/2020 09:56:29 AM EDT [facility] Outpatient Attender: Bijan Frederick MDReferrer: Randall carrera MD _[id number] 07/06/2020 09:50:16 AM EDT [facility] Outpatient Attender: Bijna Frederick MDReferrer: Randall carrera MD _[id number] 07/06/2020 09:46:50 AM EDT [facility] Outpatient Attender: Bijan Frederick MDReferrer: Randall carrera MD _[id number] 07/01/2020 06:19:45 AM EDT [facility] Outpatient Attender: BELLA Cary [facility] 06/30/2020 03:10:00 PM EDT [facility] ([facility]) Outpatient Attender: FREDRICK ROSS NP Physical Therapy 10:45:00 AM EDT [facility] ([facility]) Outpatient Attender: Bijan Frederick MDReferrer: Randall carrera MD [id number] 06/28/2020 09:56:02 AM EDT [facility] Outpatient Attender: Bijan Galvanzainab MDReferrer: Randall carrera MD LH_[id number] 06/18/2020 10:53:05 AM EDT [facility] Outpatient Attender: Graysonf Agmireillei MDReferrer: Randall carrera MD _[id number] 06/18/2020 09:02:22 AM EDT [facility] Outpatient Attender: Aref Agerick MDReferrer: Randall carrera MD _[id number] 06/18/2020 08:58:47 AM EDT [facility] Outpatient Attender: Aref Agerick MDReferrer: Randall carrera MD _[id number] 06/14/2020 08:25:51 AM EDT [facility] Outpatient Attender: Areyanet Agerick MDReferrer: Randall carrera MD _[id number] 06/14/2020 07:32:27 AM EDT [facility] Outpatient Attender: Aref Agerick MDReferrer: Randall carrera MD _[id number] 06/07/2020 10:07:34 AM EST [facility] Outpatient Attender: Areyanet Agmireillei MDReferrer: Randall carrera MD _[id number] 06/07/2020 08:31:24 AM EST [facility] Outpatient Attender: Areyanet Agerick MDReferrer: Randall carrera MD _[id number] 06/04/2020 03:19:42 PM EST [facility] Outpatient Attender: Aref Agmireillei MDReferrer: Randall carrera MD _[id number] 06/04/2020 09:20:08 AM EST [facility] Outpatient 05/24/2020 10:40:00 AM EST [facility] Outpatient Attender: Aref Agmireillei MDReferrer: Randall carrera MD _[id number] 05/24/2020 08:47:11 AM EST [facility] Outpatient Attender: Manuel PhamAttender: MANUEL Valladares [id number] 05/17/2020 12:00:00 AM EST - 05/25/2020 04:40:00 PM EST [facility] Outpatient Attender: Bijan Frederick MDReferrer: Randall carrera MD _[id number] 05/10/2020 08:16:58 AM EST [facility] Outpatient Attender: Areyanet Frederick MDReferrer: Randall carrera MD _[id number] 05/10/2020 07:46:18 AM EST [facility] Outpatient Attender: Areyanet Frederick MDReferrer: Randall carrera MD _[id number] 05/06/2020 09:54:23 AM EST [facility] Outpatient Attender: Areyanet Frederick MDReferrer: Randall carrera MD _[id number] 05/01/2020 06:16:01 AM EST [facility] Outpatient Attender: Areyanet Frederick MDReferrer: Randall carrera MD _[id number] 04/26/2020 07:43:50 AM EST [facility] Outpatient 04/23/2020 01:55:00 PM EST [facility] 04/23/2020 01:55:00 PM EST [facility] Outpatient Attender: Areyanet Frederick MDReferrer: Randall carrera MD _[id number] 04/23/2020 01:33:36 PM EST [facility] Outpatient Attender: Areyanet Agerick MDReferrer: Randall carrera MD _[id number] 04/23/2020 01:15:36 PM EST [facility] Outpatient Attender: Areyanet Agerick MDReferrer: Randall carrera MD _[id number] 04/23/2020 12:59:02 PM EST [facility] Outpatient Attender: Areyanet Agmireillei MDReferrer: Randall carrera MD _[id number] 04/21/2020 11:32:47 AM EST [facility] Outpatient Attender: Aref Agerick MDReferrer: Randall carrera MD _[id number] 04/12/2020 11:48:03 AM EST [facility] Outpatient Attender: Aref Agerick MDReferrer: Randall carrera MD _[id number] 04/12/2020 10:05:36 AM EST [facility] Outpatient Attender: Aref Agmireillei MDReferrer: Randall carrera MD _[id number] 04/12/2020 09:32:41 AM EST [facility] Outpatient Attender: Aref Agmireillei MDReferrer: Randall carrera MD _[id number] 04/12/2020 09:28:54 AM EST [facility] Outpatient Attender: Aref Agmireillei MDReferrer: Randall carrera MD _[id number] 04/09/2020 11:58:09 AM EST [facility] Outpatient Attender: Aref Agmireillei MDReferrer: Randall carrera MD _[id number] 04/06/2020 02:34:10 PM EST [facility] Outpatient Attender: Aref Agmireillei MDReferrer: Randall carrera MD _[id number] 04/06/2020 12:18:47 PM EST [facility] Outpatient Attender: Aref Agmireillei MDReferrer: Randall carrera MD _[id number] 04/06/2020 11:54:36 AM EST [facility] Outpatient Attender: Aref Agmireillei MDReferrer: Randall carrera MD _[id number] 04/06/2020 11:50:55 AM EST [facility] Outpatient Attender: Aref Agmireillei MDReferrer: Randall carrera MD _[id number] 04/06/2020 11:36:53 AM EST [facility] Outpatient Attender: Bijan Frederick MDReferrer: Randall carrera MD [id number] 04/01/2020 06:24:41 AM EST [facility] Outpatient Attender: Bijan Frederick MDReferrer: Randall carrera MD [id number] 03/30/2020 10:04:36 AM EST [facility] Outpatient Referrer: Randall Silver MD [id number] 05/25/2019 12:39:06 PM EST [facility] Referrer: Randall Silver MD 03/24/2020 12:35:43 PM EST [facility] Referrer: Randall Silver MD 03/24/2020 12:25:12 PM EST [facility] Outpatient Referrer: Randall Silver MD 03/24/2020 06:40:49 AM EST [facility] Outpatient Referrer: Randall Silver MD 03/24/2020 06:37:18 AM EST [facility] OFFICE OUTPATIENT VISIT 15 MINUTES Attender: 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 ROSS 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 03/22/2020 08:00:00 AM EST [facility] ([facility]) Outpatient Referrer: Randall Silver MD 03/19/2020 03:03:09 PM EST [facility] Outpatient 03/19/2020 02:48:09 PM EST [facility] Outpatient Attender: Claudine Damon 12:40:00 PM EST [facility] ([facility] ) Inpatient Attender: Randall Silver MD 03/05/2020 01:53:37 PM EST [facility] Inpatient Attender: Randall Silver MDAdmitter: Randall rey MD 03/05/2020 08:22:00 AM EST - 03/13/2020 04:24:00 PM EST DESCENDING COLON CARCINOMA C18.6 [facility] DESCENDING COLON CARCINOMA C18.6 Patient discharged. Inpatient Attender: Randall Silver MD 03/05/2020 08:22:00 AM EST [facility] Ann ( in Healthcare facility) Attender: Randall Silver MDAdmitter: Randall Silver MDConsultant: CLAUDINE HUBER 03/05/2020 08:22:00 AM EST [facility] Outpatient Attender: Randall Silver MD 03/04/2020 09:00:00 AM [facility] Outpatient Attender: Randall Silver MD 03/03/2020 03 :00:00 PM EST STAT C18.6, Z15.09 staging, no oral just IV [facility] STAT C18.6, Z15.09 staging, no oral just IV Outpatient Attender: NA [facility]_104 CMP Internal Med at [facility] 03/02/2020 08:50:00 AM EST [facility] ([facility]) Outpatient Attender: Randall Silver MD 02/27/2020 02:54:47 PM EST [facility] Outpatient Attender: Randall Silver MD 02/27/2020 12 :09:00 PM EST ROBOTIC LAPAROSCOPIC ASSISTED POSSIBLE OPEN SIGMOID RESECTIO [facility] ROBOTIC LAPAROSCOPIC ASSISTED POSSIBLE O PEN SIGMOID RESECTIO Outpatient Attender: Randall Rosas 02/19/2020 12:00:00 PM EST [facility] ([facility]) Outpatient Attender: Claudine Damon 07:20:00 AM EST [facility] ([facility] ) Outpatient Referrer: MANUEL PHAM . 02/04/2020 12:00:0 0 AM EST Encounter for screening for malignant neoplasm of respiratory organs [facility] Encounter for screening for malignant ne oplasm of respiratory organs Outpatient Attender: Yanni José MD Attender: Randall Silver MDAdmitter: Yanni José MD [id number] 01/19/2020 03:14:27 PM EDT - 02/09/2020 11:31:00 AM EST [facility] Patient discharged. Outpatient Attender: Randall Rosas 01/15/2020 01:15:00 PM EDT [facility] ([facility]) Outpatient Attender: FREDRICK ROSS NP Physical Therapy 08:45:00 AM EDT [facility] ([facility]) Outpatient Attender: MANUEL PHAM . [id number] 12:00:00 AM EDT - 01/20/2019 01:44:11 PM EDT Encounter for immunization [facility] Encounter for immunization Immunizations Vaccine Date Status Description Data Source(s) COVID-19 VACCINE Pfizer 09/27/2020 12:00:00 AM EDT completed [facility] Vaccine Series Complete: YESThis Data wa s Submitted to [facility] Via [employer]. COVID-19 VACC, MRNA(PFIZER)/PF 09/06/2020 12:00:00 AM EDT completed [facility] COVID-19 VACCINE Pfizer 09/06/2020 12:00:00 AM EDT completed [facility] Vaccine Series Complete: NOThis Data was Submitted to [facility] Via [employer]. INFLUENZA VIRUS VACCINE QUADRIVAL [id number](6 MOS AND UP)/PF 01/25/2020 12:00:00 AM EDT completed [facility] Medications Medication Brand Name Start Date Product Form Dose Route Admi nistrative Instructions Pharmacy Instructions Status Indications Reaction Description Data Source(s) 60 mcg (15 mcg x 4)/0.5 mL 01/29/2021 12:00:00 AM EDT syring e 0 INJECT DIRECTED INJECT DIRECTED SOLD: 01/29/2021 [facility] 0.5 mg 01/18/2021 12:00:00 AM EDT tablet 30 TAKE ONE TABLET BY MOUTH AT NIGHT NEEDED MAXIMUM DAILY DOSE = 1 TABLET TAKE ONE TABLET BY MOUTH AT NIGHT NEEDED MAXIMUM DAILY DOSE = 1 TABLET SOLD: 01/19/2021 [facility] 10 mg 01/17/2021 12:00:00 AM EDT tablet 30 TAKE ONE TABLET BY MOUTH EVERY 6 HOURS NEEDED FOR NAUSEA TAKE ONE TABLET BY MOUTH EVERY 6 HOURS A S NEEDED FOR NAUSEA SOLD: 01/19/2021 [facility] 4 mg 01/17/2021 12:00:00 AM EDT tablet 30 TAKE ONE TABLET BY MOUTH EVERY 6 HOURS NEEDED FOR NAUSEA TAKE ONE TABLET BY MOUTH EVERY 6 HOURS A S NEEDED FOR NAUSEA SOLD: 01/19/2021 [facility] Atropine Sulfate 0.025 MG / Diphenoxylat e Hydrochloride 2.5 MG Oral Tablet 2.5- 0.025 mg DIPHENOXYLATE HCL/ATROPINE 01/17/2021 12:00:00 AM EDT tablet 60 TAKE 2 TABLETS BY MOUTH FOUR TIMES A DAY NEEDED FOR DIARRHEA MAXIMUM DAILY DOSE = 8 TAKE 2 TABLETS BY MOUTH FOUR TIMES A DAY NEEDED FOR DIARRHEA MAXIMUM DAILY DOSE = 8 SOLD: 01/19/2021 [facility] Potassium Chloride 10 MEQ Extended Release Oral Tablet POTAS SIUM CHLORIDE 01/11/2021 12:00:00 AM EDT tablet extended release 60 TAKE TWO TABLETS BY MOUTH EVERY DAY TAKE TWO TABLETS BY MOUTH EVERY DAY SOLD: 01/13/2021 [facility] 300 mg 12/31/2020 12:00:00 AM EDT capsule 60 TAKE ONE CAPSULE BY MOUTH TWICE A DAY -NOTE STRENGTH INCREASE FROM 100 TO 300MG TAKE ONE CAPSULE BY MOUTH TWICE A DAY -NOTE STRENGTH INCREASE FROM 100 TO 300MG SOLD: 01/02/2021 [facility] 5 mg 12/22/2020 12:00:00 AM EDT capsule 60 TAKE ONE CAPSULE BY MOUTH TWICE A DAY AN HOUR BEFORE MEALS MAXIMUM DAILY DOSE = 2 CAPSULES TAKE ONE CAPSULE BY MOUTH TWICE A DAY AN HOUR BEFORE MEALS MAXIMUM DAILY DOSE = 2 CAPSULES SOLD: 12/23/2020 [email or web address] Atropine Sulfate 0.025 MG / Diphenoxylat e Hydrochloride 2.5 MG Oral Tablet 2.5- 0.025 mg DIPHENOXYLATE HCL/ATROPINE 12/15/2020 12:00:00 AM EDT tablet 60 TAKE TWO TABLETS BY MOUTH FOUR TIMES A DAY NEEDED DIARRHEA MAX 8TABS/DAY TAKE TWO TABLETS BY MOUTH FOUR TIMES A DAY NEEDED DIARRHEA MAX 8TABS/DAY SOLD: 12/23/2020 [facility] 0.5 mg 12/13/2020 12:00:00 AM EDT tablet 30 TAKE ONE TABLET BY MOUTH AT NIGHT NEEDED MAXIMUM DAILY DOSE = 1 TAKE ONE TABLET BY MOUTH AT NIGHT NEEDED MAXIMUM DAILY DOSE = 1 SOLD: 12/15/2020 [facility] 20 mEq/15 mL 12/11/2020 12:00:00 AM EDT liquid 45 TAKE 15ML BY MOUTH ONCE DAILY TAKE 15ML BY MOUTH ONCE DAILY SOLD: 12/11/2020 [facility] Ondansetron 4 MG Disintegrating Oral Tablet ONDANSETRON 12/01/2020 12:00:00 AM EDT tablet,disintegrating 8 DISSOLVE O NE TABLET ON TONGUE EVERY 6 TO 8 HOURS NEEDED FOR NAUSEA AND VOMITING DISSOLVE ONE TABLET ON TONGUE EVERY 6 TO 8 HOURS NEEDED FOR NAUSEA AND VOMITING SOLD: 12/01/2020 [facility] 20 mEq 11/24/2020 12:00:00 AM EDT tablet extended release 180 TAKE ONE TABLET BY MOUTH TWICE A DAY TAKE ONE TABLET BY MOUTH TWICE A DAY SOLD: 11/26/2020 [facility] 5 mg 11/24/2020 12:00:00 AM EDT capsule 20 TAKE 1 CAP BY MOUTH TWICE A DAY AN HOUR BEFORE MEALS MAX DAILY DOSE = 2 CAPSULES TAKE 1 CAP BY MOUTH TWICE A DAY AN HOUR BEFORE MEALS MAX DAILY DOSE = 2 CAPSULES SOLD: 11/26/2020 [facility] 100,000 unit/mL 11/23/2020 12:00:00 AM EDT suspension 300 SWISH AND SWALLOW 10ML BY MOUTH FOUR TIMES A DAY SWISH AND SWALLOW 10ML BY MOUTH FOUR TIMES A DAY SOLD: 11/26/2020 [facility] Atropine Sulfate 0.025 MG / Diphenoxylat e Hydrochloride 2.5 MG Oral Tablet 2.5- 0.025 mg DIPHENOXYLATE HCL/ATROPINE 11/23/2020 12:00:00 AM EDT tablet 60 TAKE 2 TABLETS BY MOUTH 4X/DAY NEEDED FOR DIARRHEA MAX DAILY DOSE = 8 TABLETS TAKE 2 TABLETS BY MOUTH 4X/DAY NEEDED FOR DIARRHEA MAX DAILY DOSE = 8 TABLETS SOLD: 11/26/2020 [facility] 100 mg 11/23/2020 12:00:00 AM EDT capsule 180 TAKE 2 CAPSULES [200MG] BY MOUTH TWO TIMES A DAY FOR 3 DAYS THEN INCREASE DOSE TO 3 CAPSULES [300MG] TWO TIMES A DAY TAKE 2 CAPSULES [200MG] BY MOUTH TWO AMANDA ES A DAY FOR 3 DAYS THEN INCREASE DOSE TO 3 CAPSULES [300MG] TWO TIMES A DAY SOLD: 11/26/2020 [facility] 5 mg 11/13/2020 12:00:00 AM EDT capsule 20 TAKE 1CAPSULE BY MOUTH TWICE A DAY 1HOUR BEFORE MEALS MAX=2CAPSULES/DAY TAKE 1CAPSULE BY MOUTH TWICE A DAY 1HOUR BEFORE MEALS MAX=2CAPSULES/DAY SOLD: 11/15/2020 [facility] 10 mg 11/11/2020 12:00:00 AM EDT tablet 30 TAKE ONE TABLET BY MOUTH EVERY 6 HOURS NEEDED FOR NAUSEA TAKE ONE TABLET BY MOUTH EVERY 6 HOURS A S NEEDED FOR NAUSEA SOLD: 01/02/2021 [facility] 10 mg 11/11/2020 12:00:00 AM EDT tablet 30 TAKE ONE TABLET BY MOUTH EVERY 6 HOURS NEEDED FOR NAUSEA TAKE ONE TABLET BY MOUTH EVERY 6 HOURS A S NEEDED FOR NAUSEA SOLD: 11/15/2020 [facility] 0.5 mg 11/11/2020 12:00:00 AM EDT tablet 30 TAKE 1 TABLET BY MOUTH AT NIGHT NEEDED MAXIMUM DAILY DOSE = 1 TABLET TAKE 1 TABLET BY MOUTH AT NIGHT NEEDED MAXIMUM DAILY DOSE = 1 TABLET SOLD: 11/15/2020 [facility] 30 ACTUAT umeclidinium 0.0625 MG/ACTUAT / vilanterol 0.025 MG/ACTUAT Dry Powder Inhaler [Anoro] 62.5-25 mcg/actuation UMECLIDINIUM BRM/VILANTEROL TR 11/11/2020 12:00:00 AM EDT blister with device 180 INHALE ONE P UFF INTO THE LUNGS EVERY DAY INHALE ONE PUFF INTO THE LUNGS EVERY DAY SOLD: 11/15/2020 [facility] 4 mg 11/11/2020 12:00:00 AM EDT tablet 30 TAKE ONE TABLET BY MOUTH EVERY 6 HOURS NEEDED FOR NAUSEA TAKE ONE TABLET BY MOUTH EVERY 6 HOURS A S NEEDED FOR NAUSEA SOLD: 11/15/2020 [facility] 4 mg 11/11/2020 12:00:00 AM EDT tablet 30 TAKE ONE TABLET BY MOUTH EVERY 6 HOURS NEEDED FOR NAUSEA TAKE ONE TABLET BY MOUTH EVERY 6 HOURS A S NEEDED FOR NAUSEA SOLD: 01/02/2021 [facility] 30 ACTUAT umeclidinium 0.0625 MG/ACTUAT / vilanterol 0.025 MG/ACTUAT Dry Powder Inhaler [Anoro] Anoro Ellipta 62.5-25 MCG/INH Inhalation Aerosol Powder Breath Activated Anoro Ellipta 62.5-25 MCG/INH Inhalation Aerosol Powder Breath Activated 11/10/2020 12:00:00 AM EDT 1 {puff} Inhalation active Other emphysema Inhale 1 puff into the lungs daily [facility] Other emphysema 125 mcg 11/03/2020 12:00:00 AM EDT tablet 90 TAKE ONE TABLET BY MOUTH EVERY DAY TAKE ONE TABLET BY MOUTH EVERY DAY SOLD: 11/05/2020 [facility] 5 mg 11/03/2020 12:00:00 AM EDT capsule 20 TAKE 1 CAPSULE BY MOUTH TWICE A DAY 1 HR BEFORE MEALS MAX=2CAPS/DAY TAKE 1 CAPSULE BY MOUTH TWICE A DAY 1 HR BEFORE MEALS MAX=2CAPS/DAY SOLD: 11/05/2020 [facility] 10 mg 10/21/2020 12:00:00 AM EDT tablet 30 TAKE ONE TABLET BY MOUTH EVERY 6 HOURS NEEDED FOR NAUSEA TAKE ONE TABLET BY MOUTH EVERY 6 HOURS A S NEEDED FOR NAUSEA SOLD: 10/22/2020 [facility] 4 mg 10/21/2020 12:00:00 AM EDT tablet 30 TAKE ONE TABLET BY MOUTH EVERY 6 HOURS NEEDED FOR NAUSEA TAKE ONE TABLET BY MOUTH EVERY 6 HOURS A S NEEDED FOR NAUSEA SOLD: 10/22/2020 [facility] Atropine Sulfate 0.025 MG / Diphenoxylat e Hydrochloride 2.5 MG Oral Tablet 2.5- 0.025 mg DIPHENOXYLATE HCL/ATROPINE 10/19/2020 12:00:00 AM EDT tablet 60 TAKE 2TABS.BY MOUTH 4 TIMES A DAY NEEDED FOR DIARRHEA MAX=8TABS/DAY TAKE 2TABS.BY MOUTH 4 TIMES A DAY NEEDED FOR DIARRHEA MAX=8TABS/DAY SOLD: 10/22/2020 [facility] 100 mg 10/12/2020 12:00:00 AM EDT capsule 180 TAKE 2 CAPSULES BY MOUTH TWICE A DAY FOR 3 DAYS THEN 3 CAPSULES BY MOUTH TWICE A DAY TAKE 2 CAPSULES BY MOUTH TWICE A DAY FOR 3 DAYS THEN 3 CAPSULES BY MOUTH TWICE A DAY SOLD: 10/13/2020 [facility] 0.5 mg 10/08/2020 12:00:00 AM EDT tablet 30 TAKE 1 TABLET BY MOUTH AT NIGHT NEEDED MAXIMUM DAILY DOSE = 1 TABLET TAKE 1 TABLET BY MOUTH AT NIGHT NEEDED MAXIMUM DAILY DOSE = 1 TABLET SOLD: 10/09/2020 [facility] Atropine Sulfate 0.025 MG / Diphenoxylat e Hydrochloride 2.5 MG Oral Tablet 2.5- 0.025 mg DIPHENOXYLATE HCL/ATROPINE 10/06/2020 12:00:00 AM EDT tablet 60 TAKE 2 TABS` BY MOUTH 4 TIMES A DAY NEEDED FOR DIARRHEA MAX DAILY DOSE = 8 TABS` TAKE 2 TABS` BY MOUTH 4 TIMES A DAY NEEDED FOR DIARRHEA MAX DAILY DOSE = 8 TABS` SOLD: 10/09/2020 [facility] 20 mg 09/23/2020 12:00:00 AM EDT capsule,delayed release (DR/EC) 60 TAKE ONE CAPSULE BY MOUTH TWICE A DAY TAKE ONE CAPSULE BY MOUTH TWICE A DAY SOLD: 09/25/2020 [facility] 1 gram 09/15/2020 12:00:00 AM EDT tablet 90 TAKE ONE TABLET BY MOUTH THREE TIMES A DAY TAKE ONE TABLET BY MOUTH THREE TIMES A DAY SOLD: 09/16/2020 [facility] NITROFURANTOIN, MACROCRYSTALS 25 MG / Ni trofurantoin, Monohydrate 75 MG Oral Capsule Nitrofurantoin Monohyd Macro 09/11/2020 12:00:00 AM EDT ORAL completed [facility] ([facility]) NITROFURANTOIN, MACROCRYSTALS 25 MG / Ni trofurantoin, Monohydrate 75 MG Oral Capsule 100 mg NITROFURANTOIN MONOHYD/M-CRYST 09/11/2020 12:00:00 AM EDT ca psule 10 TAKE ONE CAPSULE BY MOUTH TWICE A DAY FOR 5 DAYS TAKE ONE CAPSULE BY MOUTH TWICE A DAY FOR 5 DAYS SOLD: 09/12/2020 [facility] 0.5 mg 09/09/2020 12:00:00 AM EDT tablet 30 TAKE 1 TABLET BY MOUTH AT NIGHT NEEDED MAXIMUM DAILY DOSE = 1 TABLET TAKE 1 TABLET BY MOUTH AT NIGHT NEEDED MAXIMUM DAILY DOSE = 1 TABLET SOLD: 09/10/2020 [facility] 100,000 unit/mL 09/06/2020 12:00:00 AM EDT suspension 300 SWISH AND SWALLOW 10ML BY MOUTH FOUR TIMES A DAY SWISH AND SWALLOW 10ML BY MOUTH FOUR TIMES A DAY SOLD: 09/10/2020 [facility] Atropine Sulfate 0.025 MG / Diphenoxylat e Hydrochloride 2.5 MG Oral Tablet 2.5- 0.025 mg DIPHENOXYLATE HCL/ATROPINE 09/04/2020 12:00:00 AM EDT tablet 60 TAKE 2TABS.BY MOUTH 4 TIMES A DAY NEEDED FOR DIARRHEA MAX=8TABS/DAY TAKE 2TABS.BY MOUTH 4 TIMES A DAY NEEDED FOR DIARRHEA MAX=8TABS/DAY SOLD: 09/04/2020 [facility] 20 mEq 09/03/2020 12:00:00 AM EDT tablet extended release 90 TAKE ONE TABLET BY MOUTH EVERY DAY TAKE ONE TABLET BY MOUTH EVERY DAY SOLD: 09/04/2020 [facility] 125 mcg 08/25/2020 12:00:00 AM EDT tablet 90 TAKE ONE TABLET BY MOUTH EVERY DAY .MAXIMUM DAILY DOSE = 1 TAKE ONE TABLET BY MOUTH EVERY DAY .MAXI MUM DAILY DOSE = 1 SOLD: 08/25/2020 [facility] Levothyroxine Sodium 0.125 MG Oral Tablet Levothyroxine Sodi um 08/24/2020 12:00:00 AM EDT ORAL active M [facility] ([facility]) 150 mcg 08/24/2020 12:00:00 AM EDT tablet 30 TAKE ONE TABLET BY MOUTH EVERY DAY TAKE ONE TABLET BY MOUTH EVERY DAY SOLD: 08/25/2020 [facility] Potassium Chloride 10 MEQ Extended Release Oral Tablet POTAS SIUM CHLORIDE 08/23/2020 12:00:00 AM EDT tablet extended release 7 TAKE ONE TABLET BY MOUTH EVERY DAY TAKE ONE TABLET BY MOUTH EVERY DAY SOLD: 08/25/2020 [facility] potassium phosphate 155 MG / Sodium Phos phate, Dibasic 852 MG / Sodium Phosphate, Monobasic 130 MG Oral Tablet 250 mg SOD PHOS DI, MONO/K PHOS MONO 08/21/2020 12:00:00 AM EDT tablet 30 TAKE ONE TABLET BY MOUTH THREE TIMES A DAY FOR 3 DAYS THEN DECREASE TO TWO TIMES A DAY THEN PER MD TAKE ONE TABLET BY MOUTH THREE TIMES A DAY FOR 3 DAYS THEN DECREASE TO TWO TIMES A DAY THEN PER MD SOLD: 08/22/2020 [facility] 800-160 mg 08/20/2020 12:00:00 AM EDT tablet 14 TAKE ONE TABLET BY MOUTH TWICE A DAY TAKE ONE TABLET BY MOUTH TWICE A DAY SOLD: 08/22/2020 [facility] 800-160 mg 08/18/2020 12:00:00 AM EDT tablet 6 TAKE ONE TABLET BY MOUTH TWICE A DAY FOR 3 DAYS TAKE ONE TABLET BY MOUTH TWICE A DAY FOR 3 DAYS SOLD: 08/19/2020 [facility] Klor-Con M10 Klor-Con M10 08/13/2020 12:00:00 AM EDT ORAL active [facility] ([facility]) Potassium Chloride 10 MEQ Extended Release Oral Capsule POTA SSIUM CHLORIDE 08/07/2020 12:00:00 AM EDT capsule, extended release 30 TAKE ONE CAPSULE BY MOUTH TWICE A DAY OR DIRECTED BY MD TAKE ONE CAPSULE BY MOUTH TWICE A DAY OR DIRECTED BY MD SOLD: 08/09/2020 [facility] potassium phosphate 155 MG / Sodium Phos phate, Dibasic 852 MG / Sodium Phosphate, Monobasic 130 MG Oral Tablet 250 mg SOD PHOS DI, MONO/K PHOS MONO 08/05/2020 12:00:00 AM EDT tablet 12 TAKE ONE TABLE T BY MOUTH TWICE A DAY TAKE ONE TABLET BY MOUTH TWICE A DAY SOLD: 08/05/2020 [facility] 4 gram 08/05/2020 12:00:00 AM EDT powder in packet 60 DRINK 1 PACKET DISSOLVED IN WATER TWICE A DAY NEEDED FOR DIARRHEA DRINK 1 PACKET DISSOLVED IN WATER TWICE A DAY NEEDED FOR DIARRHEA SOLD: 08/05/2020 [facility] Atropine Sulfate 0.025 MG / Diphenoxylat e Hydrochloride 2.5 MG Oral Tablet 2.5- 0.025 mg DIPHENOXYLATE HCL/ATROPINE 08/04/2020 12:00:00 AM EDT tablet 60 TAKE TWO TABLETS BY MOUTH FOUR TIMES A DAY NEEDED DIARRHEA MAX 8TABS/DAY TAKE TWO TABLETS BY MOUTH FOUR TIMES A DAY NEEDED DIARRHEA MAX 8TABS/DAY SOLD: 08/05/2020 [facility] 4 mg 07/30/2020 12:00:00 AM EDT tablet 30 TAKE ONE TABLET BY MOUTH EVERY 6 HOURS NEEDED FOR NAUSEA TAKE ONE TABLET BY MOUTH EVERY 6 HOURS A S NEEDED FOR NAUSEA SOLD: 08/03/2020 [facility] 10 mg 07/30/2020 12:00:00 AM EDT tablet 30 TAKE ONE TABLET BY MOUTH EVERY 6 HOURS NEEDED FOR NAUSEA TAKE ONE TABLET BY MOUTH EVERY 6 HOURS A S NEEDED FOR NAUSEA SOLD: 08/03/2020 [facility] 4 mg 07/30/2020 12:00:00 AM EDT tablet 30 TAKE ONE TABLET BY MOUTH EVERY 6 HOURS NEEDED FOR NAUSEA TAKE ONE TABLET BY MOUTH EVERY 6 HOURS A S NEEDED FOR NAUSEA SOLD: 09/25/2020 [facility] 10 mg 07/30/2020 12:00:00 AM EDT tablet 30 TAKE ONE TABLET BY MOUTH EVERY 6 HOURS NEEDED FOR NAUSEA TAKE ONE TABLET BY MOUTH EVERY 6 HOURS A S NEEDED FOR NAUSEA SOLD: 09/25/2020 [facility] 0.5 mg 07/23/2020 12:00:00 AM EDT tablet 30 TAKE ONE TABLET BY MOUTH NIGHTLY NEEDED MAXIMUM DAILY DOSE = 1 TABLET TAKE ONE TABLET BY MOUTH NIGHTLY NEEDED MAXIMUM DAILY DOSE = 1 TABLET SOLD: 07/26/2020 [facility] 20 mEq 07/08/2020 12:00:00 AM EDT tablet extended release 30 TAKE ONE TABLET BY MOUTH EVERY DAY TAKE ONE TABLET BY MOUTH EVERY DAY SOLD: 07/12/2020 [facility] 100,000 unit/mL 07/06/2020 12:00:00 AM EDT suspension 200 SWISH & SWALLOW 5ML BY MOUTH 4 TIMES A DAY FOR 10 DAYS SWISH & SWALLOW 5ML BY MOUTH 4 TIMES A DAY FOR 10 DAYS SOLD: 07/29/2020 [facility] 100,000 unit/mL 07/06/2020 12:00:00 AM EDT suspension 200 SWISH & SWALLOW 5ML BY MOUTH 4 TIMES A DAY FOR 10 DAYS SWISH & SWALLOW 5ML BY MOUTH 4 TIMES A DAY FOR 10 DAYS SOLD: 07/07/2020 [facility] NITROFURANTOIN, MACROCRYSTALS 100 MG Oral Capsule Nitrofuran toin Macrocrystal 06/30/2020 12:00:00 AM EDT ORAL completed [facility] ([facility]) Compazine 06/30/2020 12:00:00 AM EDT active [facility] ([facility]) Chemotherapy 06/30/2020 12:00:00 AM EDT activ e [facility] ([facility]) 100 mg 06/30/2020 12:00:00 AM EDT capsule 10 TAKE ONE CAPSULE BY MOUTH TWICE A DAY FOR 5 DAYS TAKE ONE CAPSULE BY MOUTH TWICE A DAY FOR 5 DAYS SOLD: 07/01/2020 [facility] 100 mcg 06/29/2020 12:00:00 AM EDT tablet 90 TAKE ONE TABLET BY MOUTH EVERY DAY TAKE ONE TABLET BY MOUTH EVERY DAY SOLD: 07/01/2020 [facility] NITROFURANTOIN, MACROCRYSTALS 25 MG / Ni trofurantoin, Monohydrate 75 MG Oral Capsule Nitrofurantoin Monohyd Macro 06/15/2020 12:00:00 AM EDT ORAL completed [facility] ([facility]) 100 mg 06/15/2020 12:00:00 AM EDT capsule 14 TAKE ONE CAPSULE BY MOUTH TWICE A DAY FOR 7 DAYS TAKE ONE CAPSULE BY MOUTH TWICE A DAY FOR 7 DAYS SOLD: 06/15/2020 [facility] 250 mg magnesium 06/10/2020 12:00:00 AM EST tablet 30 TAKE ONE TABLET BY MOUTH EVERY DAY TAKE ONE TABLET BY MOUTH EVERY DAY SOLD: 06/10/2020 [facility] 4 mg 06/04/2020 12:00:00 AM EST tablet 30 TAKE ONE TABLET BY MOUTH EVERY 6 HOURS NEEDED FOR NAUSEA TAKE ONE TABLET BY MOUTH EVERY 6 HOURS A S NEEDED FOR NAUSEA SOLD: 07/07/2020 [facility] 10 mg 06/04/2020 12:00:00 AM EST tablet 30 TAKE ONE TABLET BY MOUTH EVERY 6 HOURS NEEDED FOR NAUSEA TAKE ONE TABLET BY MOUTH EVERY 6 HOURS A S NEEDED FOR NAUSEA SOLD: 07/07/2020 [facility] 4 mg 06/04/2020 12:00:00 AM EST tablet 30 TAKE ONE TABLET BY MOUTH EVERY 6 HOURS NEEDED FOR NAUSEA TAKE ONE TABLET BY MOUTH EVERY 6 HOURS A S NEEDED FOR NAUSEA SOLD: 06/07/2020 [facility] 10 mg 06/04/2020 12:00:00 AM EST tablet 30 TAKE ONE TABLET BY MOUTH EVERY 6 HOURS NEEDED FOR NAUSEA TAKE ONE TABLET BY MOUTH EVERY 6 HOURS A S NEEDED FOR NAUSEA SOLD: 06/07/2020 [facility] 0.5 mg 05/27/2020 12:00:00 AM EST tablet 15 TAKE 1 TABLET BY MOUTH BEFORE BED MAXIMUM DAILY DOSE = 1 TABLET TAKE 1 TABLET BY MOUTH BEFORE BED MAXIMU M DAILY DOSE = 1 TABLET SOLD: 05/27/2020 [facility] 20 mEq 05/25/2020 12:00:00 AM EST packet 30 MIX 1 PACKET AND TAKE BY MOUTH DIRECTED TWICE A DAY MIX 1 PACKET AND TAKE BY MOUTH DIRECTED TWICE A DAY SOLD: 05/25/2020 [facility] MOUTHWASH 05/07/2020 12:00:00 AM EST suspension 240 SWISH AND SPIT 5- 10 ML BY MOUTH EVERY 6 HOURS NEEDED SWISH AND SPIT 5-10 ML BY MOUTH EVERY 6 HOURS NEEDED SOLD: 05/07/2020 [facility] Lidocaine 25 MG/ML / Prilocaine 25 MG/ML Topical Cream 2.5-2.5 % LIDOCAINE/PRILOCAINE 04/12/2020 12:00:00 AM EST cream 30 APPLY TO PORT SITE 1 HOUR PRIOR TO PORT ACCESS, COVER WITH PLASTIC WRAP APPLY TO PORT SITE 1 HOUR PRIOR TO PORT ACCESS, COVER WITH PLASTIC WRAP SOLD: 04/15/2020 [facility] 10 mg 04/12/2020 12:00:00 AM EST tablet 30 TAKE ONE TABLET BY MOUTH EVERY 6 HOURS NEEDED FOR NAUSEA TAKE ONE TABLET BY MOUTH EVERY 6 HOURS A S NEEDED FOR NAUSEA SOLD: 04/15/2020 [facility] 10 mg 04/12/2020 12:00:00 AM EST tablet 30 TAKE ONE TABLET BY MOUTH EVERY 6 HOURS NEEDED FOR NAUSEA TAKE ONE TABLET BY MOUTH EVERY 6 HOURS A S NEEDED FOR NAUSEA SOLD: 05/25/2020 [facility] 4 mg 04/12/2020 12:00:00 AM EST tablet 30 TAKE ONE TABLET BY MOUTH EVERY 6 HOURS NEEDED FOR NAUSEA TAKE ONE TABLET BY MOUTH EVERY 6 HOURS A S NEEDED FOR NAUSEA SOLD: 05/25/2020 [facility] 4 mg 04/12/2020 12:00:00 AM EST tablet 30 TAKE ONE TABLET BY MOUTH EVERY 6 HOURS NEEDED FOR NAUSEA TAKE ONE TABLET BY MOUTH EVERY 6 HOURS A S NEEDED FOR NAUSEA SOLD: 04/15/2020 [facility] 400 mg (241.3 mg magnesium) 04/07/2020 12:00:00 AM EST table t 7 TAKE ONE TABLET BY MOUTH EVERY DAY TAKE ONE TABLET BY MOUTH EVERY DAY SOLD: 04/08/2020 [facility] 20 mEq 04/07/2020 12:00:00 AM EST tablet,ER particles/cry stals 14 TAKE ONE TABLET BY MOUTH TWICE A DAY TAKE ONE TABLET BY MOUTH TWICE A DAY SOLD: 04/08/2020 [facility] 100,000 unit/mL 03/31/2020 12:00:00 AM EST suspension 200 SWISH & SPIT 5ML FOUR TIMES A DAY FOR 14 DAYS OR UNTIL THRUSH IS GONE SWISH & SPIT 5ML FOUR TIMES A DAY FOR 14 DAYS OR UNTIL THRUSH IS GONE SOLD: 04/03/2020 [facility] 4 mg 03/31/2020 12:00:00 AM EST tablet 30 TAKE ONE TABLET BY MOUTH EVERY 6 HOURS NEEDED FOR NAUSEA AND VOMITING TAKE ONE TABLET BY MOUTH EVERY 6 HOURS NEEDED FOR NAUSEA AND VOMITING SOLD: 04/03/2020 [facility] 62.5-25 mcg/actuation 03/16/2020 12:00:00 AM EST blister wit h device 180 INHALE ONE PUFF INTO THE LUNGS DAILY INHALE ONE PUFF INTO THE LUNGS DAILY SOLD: 03/17/2020 [facility] 62.5-25 mcg/actuation 03/16/2020 12:00:00 AM EST blister wit h device 180 INHALE ONE PUFF INTO THE LUNGS DAILY INHALE ONE PUFF INTO THE LUNGS DAILY SOLD: 06/15/2020 [facility] Nystatin [id number] UNT/ML Oral Suspension Nystatin 03/15/2020 12:00:00 AM EST active [facility] ([facility]) Atenolol 25 MG Oral Tablet ATENOLOL 03/15/2020 12:00:00 AM EST tablet 90 TAKE ONE TABLET BY MOUTH EVERY DAY TAKE ONE TABLET BY MOUTH EVERY DAY SOLD: 06/15/2020 [facility] Ondansetron 4 MG Oral Tablet Ondansetron HCL 03/15/2020 12:00:[address] ORAL active [facility] ([facility]) 4 mg 03/15/2020 12:00:00 AM EST tablet 30 TAKE ONE TABLET BY MOUTH EVERY 6 HOURS NEEDED FOR NAUSEA/VOMITING TAKE ONE TABLET BY MOUTH EVERY 6 HOURS A S NEEDED FOR NAUSEA/VOMITING SOLD: 03/15/2020 [facility] 25 mg 03/15/2020 12:00:00 AM EST tablet 90 TAKE ONE TABLET BY MOUTH EVERY DAY TAKE ONE TABLET BY MOUTH EVERY DAY SOLD: 09/25/2020 [facility] Atenolol 25 MG Oral Tablet ATENOLOL 03/15/2020 12:00:00 AM EST tablet 90 TAKE ONE TABLET BY MOUTH EVERY DAY TAKE ONE TABLET BY MOUTH EVERY DAY SOLD: 03/17/2020 [facility] 30 ACTUAT umeclidinium 0.0625 MG/ACTUAT / vilanterol 0.025 MG/ACTUAT Dry Powder Inhaler [Anoro] Anoro Ellipta 62.5-25 MCG/INH Inhalation Aerosol Powder Breath Activated Anoro Ellipta 62.5-25 MCG/INH Inhalation Aerosol Powder Breath Activated 03/15/2020 12:00:00 AM EST 1 {puff} Inhalation active Other emphysema Inhale 1 puff into the lungs daily [facility] Other emphysema 100,000 unit/mL 03/15/2020 12:00:00 AM EST suspension 200 SWISH AND SPIT 5MLS [1 TEASPOONFUL] FOUR TIMES A DAY FOR 14 DAYS OR UNTIL THURSH IS RESOLVED SWISH AND SPIT 5MLS [1 TEASPOONFUL] FOUR TIMES A DAY FOR 14 DAYS OR UNTIL THURSH IS RESOLVED SOLD: 03/15/2020 [facility] Metronidazole 500 MG Oral Tablet [Flagyl] Flagyl 02/23/2020 12:00 :00 AM EST active [facility] ([facility]) Neomycin Sulfate 500 MG Oral Tablet Neomycin Sulfate 02/23/2020 12:00:00 AM EST active [facility] ( [facility]) 500 mg 02/23/2020 12:00:00 AM EST tablet 6 TAKE 2 TABLETS THREE TIMES A DAY DIRECTED TAKE 2 TABLETS THREE TIMES A DAY DIRECTED SOLD: 02/25/2020 [facility] Metronidazole 500 MG Oral Tablet METRONIDAZOLE 02/23/2020 12:0 0:00 AM EST tablet 3 TAKE ONE TABLET BY MOUTH THREE T IMES A DAY DIRECTED TAKE ONE TABLET BY MOUTH THREE TIMES A DAY DIRECTED SOLD: 02/25/2020 [facility] Magnesium Chloride 0.55713 MEQ/ML / Pota ssium Chloride 0.0497 MEQ/ML / Sodium Acetate 0.0163 MEQ/ML / Sodium Chloride 0.0899 MEQ/ML / Sodium gluconate 5.02 MG/ML Injectable Solution [Normosol-R] electrolyte-R (NORMOSOL-R/PLASMALYTE-R) solution electrolyte-R (NORMOSOL-R/PLASMALYTE-R) solution 02/08 10:00:00 AM EST Intravenous active at 1 00 mL/hr, Intravenous, Continuous, Starting Sun02/09/20 at 1000, Pre-op [facility] Medication administered onsite normal saline flush 0.9 % injection 3 mL [id number] 02/09/2020 10:00:00 AM EST 3 mL Intravenous active 3 mL , Intravenous, Every 8 hours (scheduled), First dose on Sun02/09/20 at 1000, Pre-op
Rapid push positive pressure flushing shall be performed with a 10 cc normal saline syringe to check the PATENCY of a PIV site prior to any infusion therapy initiation unless resistance is met.
[facility] Medication administered onsite buspirone hydrochloride 10 MG Oral Tablet BUSPIRONE HCL 02/05/2020 12:00:00 AM EST tablet 60 TAKE ONE TABLET BY MOUTH TWI CE A DAY TAKE ONE TABLET BY MOUTH TWICE A DAY SOLD: 02/10/2020 [facility] buspirone hydrochloride 10 MG Oral Tablet BUSPIRONE HCL 02/05/2020 12:00:00 AM EST tablet 60 TAKE ONE TABLET BY MOUTH TWI CE A DAY TAKE ONE TABLET BY MOUTH TWICE A DAY SOLD: 03/12/2020 [facility] 140-9-5.2 gram 01/16/2020 12:00:00 AM EDT powder in packet, sequential 3 FOLLOW THE DIRECTIONS GIVEN TO YOU BY DOCTORS OFFICE FOLLOW THE DIRECTIONS GIVEN TO YOU BY DOCTORS OFFICE SOLD: 01/18/2020 [facility] Plenvu Plenvu 01/15/2020 12:00:00 AM EDT active [facility] ([facility]) 100 mcg 12/22/2019 12:00:00 AM EDT tablet 90 TAKE ONE TABLET BY MOUTH EVERY DAY TAKE ONE TABLET BY MOUTH EVERY DAY SOLD: 12/26/2019 [facility] Levothyroxine Sodium 0.1 MG Oral Tablet Levothyroxine Sodium 12/21/2019 12:00:00 AM EDT ORAL active [facility] ([facility]) 62.5-25 mcg/actuation 09/25/2019 12:00:00 AM EDT blister wit h device 180 INHALE ONE PUFF BY MOUTH EVERY DAY INHALE ONE PUFF BY MOUTH EVERY DAY SOLD: 12/19/2019 [facility] 25 mg 09/17/2019 12:00:00 AM EDT tablet 90 TAKE ONE TABLET BY MOUTH EVERY DAY TAKE ONE TABLET BY MOUTH EVERY DAY SOLD: 12/19/2019 [facility] buspirone hydrochloride 10 MG Oral Tablet BUSPIRONE HCL 08/01/2019 12:00:00 AM EDT tablet 60 TAKE 1 TABLET BY MOUTH TWICE A DAY TAKE 1 TABLET BY MOUTH TWICE A DAY SOLD: 01/09/2020 [facility] Insurance Providers Payer name Policy type / Coverage type Policy ID Covered democrat ID Covered democrat's relationship to guevara Policy G[place]vara Plan Information [place] 306/806 [id number] [id number] [place] 306/806 [id number] HU2 [id number] [place] 306/806 [id number] HU2 [id number] [place] Commercial [id number] Family Dependent BS [place] Trad/[place] Medigap Part B [id number] Family Dependent [id number] [place] Medigap Part B [id number] Family Dependent [id number] [place] Commercial [id number] Family Dependent [id number] [place] Commercial [id number] Family Dependent [id number] [place] [employer] Commercial [id number] Family Dependent [id number] [place] Commercial [id number] Family Dependent [id number] [place] Commercial [id number] Family Dependent [id number] [place] [employer] Commercial [id number] Family Dependent [id number] [facility] [id number] Spouse [id number] [place] 306/806 [id number] HU2 [id number] Blue Shield Facets Primary [id number] [place] 306/806 [id number] HU2 [id number] [place] PPO 302/307 [id number] HU2 [id number] [place] BCBS [id number] [phone] [id number] [place] 306/806 [id number] HU2 [id number] [place] BCBS [id number] Spo VYS [place] Commercial [id number] Family Dependent [id number] [place] Commercial [id number] Family Dependent [id number] [place] [employer] Commercial [id number] Family Dependent [id number] [place] Commercial [id number] Family Dependent [id number] [place] Commercial [id number] Family Dependent [id number] [place] Commercial [id number] Family Dependent [id number] [place] [employer] Commercial [id number] Family Dependent [id number] [place] Commercial [id number] Family Dependent [id number] [place] [employer] Commercial [id number] Family Dependent [id number] [place] [employer] Commercial [id number] Family Dependent [id number] [place] [employer] Commercial [id number] Family Dependent [id number] [place] Commercial [id number] Family Dependent [id number] [place] Commercial [id number] Family Dependent [id number] [place] Commercial [id number] Family Dependent [id number] [place] [employer] Commercial [id number] Family Dependent [id number] INSURANCE COVID-19 COVID Christy C OVID SELF PAY BLUE CROSS [id number] SPO [id number] [facility] [id number] [place] Medigap Part B [id number] Family Dependent [id number] BCBS/[employer] Commercial [id number] Family Dependent [id number] [place] Medigap Part B [id number] Family Dependent [id number] [place] Medigap Part B [id number] Family Dependent [id number] [place] Medigap Part B [id number] Family Dependent [id number] BCBS/[employer] Commercial [id number] Family Dependent [id number] [place] PPO 302/307 [id number] HU2 [id number] [place] Commercial [id number] Self [place] [facility] [id number] Family Dependent [id number] BCBS/[place] Commercial [id number] Family Dependent BC[employer] Commercial [id number] Family Dependent [place] BCBS Health Maintenance Organization (HMO) [id number] Family Dependent [id number] [place] [facility] Part B [id number] Family Dependent [id number] [place] BCBS B [id number] P [id number] [place] [facility] Part [facility] [id number] Family Dependent [id number] [place] Medigap Part B [id number] Family Dependent [id number] [place] PPO 302/307 [id number] HU2 [id number] [place]BS [place] PPO 302/307 [id number] SP [id number] [place] BCBS B [id number] O [id number] [place] Commercial [id number] Family Dependent [place] [id number] SPO VYS [id number] [place] BLUE CROSS BLUE SHIELD HEA [id number] SP [id number] Problems, Conditions, and Diagnoses Code Display Name Description Problem Type Effective Dates Data Source(s) E07.9 Disorder of thyroid, unspecified Disorder of thy roid, unspecified Diagnosis 12/20/2020 10:38:00 AM T [facility] R19.7 Diarrhea, unspecified Diarrhea, unspecified Diagnosis 08/04/2020 12:00:00 AM EDT [facility] J90 Pleural effusion, not elsewhere classifi ed Pleural effusion, not elsewhere classified Diagnosis 05/17/2020 07:56:06 AM [facility] J98.11 Atelectasis Atelectasis Diagnosis 05/17/2020 07:56:[address] 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 Diagnosis 05/05/2020 12:00:00 AM EST [facility] C55 Malignant neoplasm of uterus, part unspe cified Malignant neoplasm of uterus, part unspecified Diagnosis 04/06/2020 12:00:00 AM EST [facility] Z84.81 Family history of carrier of genetic dis ease Family history of carrier of genetic disease Diagnosis 04/06/2020 12:00:00 AM EST [facility] J43.9 Emphysema, unspecified EMPHYSEMA, UNSPECIFIED Diagnosi s 03/04/2020 09:00:00 AM [facility] 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 GENETIC SUSCEPTIBILITY TO OTHER MALIGNAN Diagnosis 03/04/2020 09:00:00 AM EST [facility] 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 M ALIGNANT NEOPLASM OF DESCENDING COLON Diagnosis 03/04/2020 09:00:00 AM EST [facility] Z12.9 Encounter for screening for malignant ne oplasm, site unspecified Encounter for screening for malignant ne Diagnosis 02/09/2020 08:28:00 AM EST [facility] 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 Genetic susceptibility to other malignan Diagnosis 02/09/2020 08:28:00 AM EST [facility] Z86.010 Personal history of colonic polyps Personal hist ory of colonic polyps Diagnosis 02/09/2020 08:28:00 AM EST [facility] R19.4 Change in bowel habit Change in bowel habit Diagnosis 02/09/2020 08:28:00 AM EST [facility] C18.9 Malignant neoplasm of colon, unspecified Malignant neoplasm of colon, unspecified Diagnosis 02/09/2020 12:00:00 AM EST [facility] Z12.2 Encounter for screening for malignant ne oplasm of respiratory organs Encounter for screening for malignant neoplasm of respiratory organs Diagnosis 02/04/2020 01:19:47 PM EST [facility] R47.02 Disturbance in speech Disturbance in speech Problem 12/01/2020 12:00:00 AM EDT [facility] ([facility], ) R07.0 Sore throat symptom Sore throat symptom Problem 0 12/01/2020 12:00:00 AM EDT [facility] ([facility], ) 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 12/01/2020 12:00:00 AM EDT MEDEN T ([facility], ) [id number] Essential hypertension Essential hypertension Problem 11/30/2020 12:00:00 AM EDT [facility] ([facility]) [id number] Carcinoma of colon Carcinoma of colon Problem 12:00:00 AM EST [facility] ([facility]) 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 03/15/2020 12:00: 00 AM EST [facility] ([facility]) Surgeries/Procedures Procedure Description Date Indications Data Source(s) OFFICE OUTPATIENT VISIT 25 MINUTES 02/04/2021 12:00:00 AM EDT [facility] ([facility]) OFFICE OUTPATIENT VISIT 25 MINUTES 12/23/2020 12:00:00 AM EDT [facility] ([facility]) OFFICE OUTPATIENT NEW 45 MINUTES 12/01/2020 12:00:00 A M EDT [facility] ([facility]) OFFICE OUTPATIENT VISIT 15 MINUTES 11/03/2020 12:00:00 AM EDT [facility] ([facility]) OFFICE OUTPATIENT VISIT 25 MINUTES 09/27/2020 12:00:00 AM EDT [facility] ([facility]) OFFICE OUTPATIENT VISIT 15 MINUTES 09/11/2020 12:00:00 AM EDT [facility] ([facility]) OFFICE OUTPATIENT VISIT 25 MINUTES 08/24/2020 12:00:00 AM EDT MED[facility] ([facility]) OFFICE OUTPATIENT VISIT 25 MINUTES 08/13/2020 12:00:00 AM EDT [facility] ([facility]) OFFICE OUTPATIENT VISIT 25 MINUTES 06/30/2020 12:00:00 AM EDT MED[facility] ([facility]) OFFICE OUTPATIENT VISIT 25 MINUTES 06/29/2020 12:00:00 AM EDT MED[facility] ([facility]) Electrocardiogram Interpretation & Report Only 020 12:00:00 AM EST [facility] ([facility]) COLCT TOT ABDL W/O PRCTECT W/ILEOST/ILEOPXTS 0 12:00:00 AM EST [facility] ([facility]) COLONOSCOPY W/BIOPSY SINGLE/MULTIPLE 02/09/2020 12:00: 00 AM EST [facility] ([facility]) COLSC FLX PROX SPLENIC FLXR SBMCSL NJX 02/09/2020 12:0 0:00 AM EST [facility] ([facility]) COLSC FLX PROX SPLENIC FLXR RMVL LES SNARE TQ 02/09/20 20 12:00:00 AM EST [facility] ([facility]) Results ID Date Data Source [id number] 02/01/2021 12:04:00 PM EDT [facility] ([facility]) Name Value Range Interpretation Code Description Data Nadira rce(s) Supporting Document(s) Magnesium [Moles/volume] in Serum or Plasma 1.8 mg/dL 1.8-2.4 [facility] ([facility]) Carcinoembryonic Ag [Mass/volume] in Serum or Plasma 4.8 ng/mL [facility] ([facility]) THE CEA ASSAY IS PERFORMED ON THE [employer] BY CHEMILUMINESCENCE AND SHOULD NOT BE COMPARED INTERCHANGEABLY WITH OTHER METHODS. IT SHOULD NOT BE USED ALONE A SCREENING TEST OR DIAGNOSIS FOR THE PRESENCE OR ABSENCE OF MALIGNANT DISEASE. PREDICTIONS OF DISEASE RECURRENCE SHOULD NOT BE BASED SOLELY ON VALUES OBTAINED FROM SERIAL PATIENT SERUM VALUES. ID Date Data Source [id number] 02/01/2021 12:04:00 PM EDT [facility] ([facility]) Name Value Range Interpretation Code Description Data [facility]) Supporting Document(s) White Blood Count 4.9 10 4.0-10.0 [facility] Red Blood Count 4.04 10 4.00-5.40 [facility] Hemoglobin 12.8 g/dL 12.0-15.5 [facility] ([facility]) Mean Corpuscular Hemoglobin 31.7 pg 27.0-33.0 [place] DENT ([facility]) Hematocrit 40.5 % 36.0-47.0 [facility] ([facility]) Mean Corpuscular Volume 100.2 fl 80.0-96.0 [facility] Mean Corpuscular HGB Conc 31.6 g/dL 32.0-36.5 MEDE NT ([facility]) Platelet Count, Automated 198 10 150-450 MEDE NT ([facility]) Red Cell Distribution Width 14.1 % 11.5-14.5 [place] [facility]ENT ([facility]) Cascade % 11.4 % 2.0-8.0 [facility] Lymph % 15.0 % 24.0-44.0 [facility] ([place] [facility]) Neutrophils % 71.6 % 36.0-66.0 [facility] ([facility]) Eos % 0.8 % 0.0-3.0 [facility] ([place] [facility]) Baso % 0.8 % 0.0-1.0 [facility] ([place] [facility]) Immature Granulocyte % 0.4 % 0-3.0 [facility] ([facility]) Nucleated Red Blood Cell % 0.0 % 0-0 MED ENT ([facility]) Lymph # 0.7 10 1.5-5.0 [facility] ([place] [facility]) Neutrophils # 3.5 10 1.5-8.5 [facility] ([facility]) Cascade # 0.6 10 0.0-0.8 [facility] ([place] [facility]) Eos # 0.0 10 0.0-0.5 [facility] ([place] [facility]) Baso # 0.0 10 0.0-0.2 [facility] ([place] [facility]) ID Date Data Source [id number] 02/01/2021 12:04:00 PM EDT [facility] ([facility]) Name Value Range Interpretation Code Description Data Nadira rce(s) Supporting Document(s) Blood Urea Nitrogen 6 mg/dL 7-18 [facility] ([facility]) Glucose, Fasting 88 mg/dL 70-100 [facility] ([facility]) Creatinine For GFR 0.39 mg/dL 0.55-1.30 [facility] ([facility]) Sodium Level 140 meq/L 136-145 [facility] ([facility]) Glomerular Filtration Rate Laboratory test result [facility] ([facility]) <content>Units are mL/min/1.73 m2</content>
<content></content>
<content>Chronic Kidney Disease Staging per NK[facility]:</content>
<content></content>
<content>Stage I & II GFR >=60 Normal to Mildly Decreased</content>
<content>Stage III GFR 30- 59 Moderately Decreased</content>
<content>Stage IV GFR 15-29 Severely Decreased</content>
<content>Stage V GFR <15 Very Little GFR Left</content>
<content>ESRD GFR <15 on NEWSPAPER ILLUSTRATOR</content>
<content></content> Potassium Serum 4.4 meq/L 3.5-5.1 [facility] ([facility]) Chloride Level 107 meq/L 98-107 [facility] ([facility]) Carbon Dioxide Level 31 meq/L 21-32 [facility] [facility] Anion Gap 2 meq/L 8-16 [facility] ([place] [facility]) Calcium Level 9.5 mg/dL 8.5-10.1 MED[facility] ([facility]) Alt/SGPT 29 U/L 12-78 [facility] ([place] [facility]) Ast/Sgot 33 U/L 7-37 [facility] ([facility]) Bilirubin,Total 0.6 mg/dL 0.2-1.0 [facility] ([facility]) Alkaline Phosphatase 177 U/L 45-117 [facility] ([facility]) Total Protein 5.9 GM/DL 6.4-8.2 [facility] ([facility]) Albumin 2.8 GM/DL 3.2-5.2 [facility] ([facility]) Albumin/Globulin Ratio 0.9 1.2-2.2 [facility] ([place] [facility]) ID Date Data Source [id number] 01/25/2021 11:44:00 AM EDT MEDENT ([facility]) Name Value Range Interpretation Code Description Data Nadira rce(s) Supporting Document(s) Glucose, Fasting 95 mg/dL 70-100 MED[facility] ([facility]) Creatinine For GFR 0.46 mg/dL 0.55-1.30 [facility] ([facility]) Blood Urea Nitrogen 5 mg/dL 7-18 [facility] ([facility]) Glomerular Filtration Rate Laboratory test result [facility] ([place] [facility]) <content>Units are mL/min/1.73 m2</content>
<content></content>
<content>Chronic Kidney Disease Staging per NKF:</content>
<content></content>
<content>Stage I & II GFR >=60 Normal to Mildly Decreased</content>
<content>Stage III GFR 30- 59 Moderately Decreased</content>
<content>Stage IV GFR 15-29 Severely Decreased</content>
<content>Stage V GFR <15 Very Little GFR Left</content>
<content>ESRD GFR <15 on NEWSPAPER ILLUSTRATOR</content>
<content></content> Sodium Level 142 meq/L 136-145 MEDENT ([place] [facility]) Potassium Serum 4.5 meq/L 3.5-5.1 MED[facility] ([facility]) Chloride Level 107 meq/L 98-107 MED[facility] ([facility]) Carbon Dioxide Level 30 meq/L 21-32 MED[facility] ([facility]) Anion Gap 5 meq/L 8-16 [facility] ([place] [facility]) Alt/SGPT 30 U/L 12-78 [facility] ([place] [facility]) Ast/Sgot 45 U/L 7-37 MED[facility] ([place] [facility]) Calcium Level 9.1 mg/dL 8.5-10.1 [facility] ([facility]) Alkaline Phosphatase 162 U/L 45-117 [facility] ([facility]) Total Protein 5.6 GM/DL 6.4-8.2 [facility] ([facility]) Bilirubin,Total 0.5 mg/dL 0.2-1.0 [facility] ([facility]) Albumin 2.4 GM/DL 3.2-5.2 [facility] ([place] [facility]) Albumin/Globulin Ratio 0.8 1.2-2.2 [facility] ([place] [facility]) ID Date Data Source [id number] 01/25/2021 11:44:00 AM EDT MEDENT ([facility]) Name Value Range Interpretation Code Description Data Nadira rce(s) Supporting Document(s) White Blood Count 3.4 10 4.0-10.0 MEDENT ([facility]) Red Blood Count 3.94 10 4.00-5.40 MED[facility] ([facility]) Hemoglobin 12.8 g/dL 12.0-15.5 [facility] ([place] [facility]) Hematocrit 40.0 % 36.0-47.0 [facility] ([place] [facility]) Mean Corpuscular Volume 101.5 fl 80.0-96.0 [facility] ([place] [facility]) Mean Corpuscular Hemoglobin 32.5 pg 27.0-33.0 ME DENT ([place] [facility]) Red Cell Distribution Width 14.2 % 11.5-14.5 ME DENT ([place] [facility]) Mean Corpuscular HGB Conc 32.0 g/dL 32.0-36.5 MEDE NT ([place] [facility]) Platelet Count, Automated 179 10 150-450 MEDE NT ([place] [facility]) Neutrophils % 59.9 % 36.0-66.0 [facility] ([facility]) Lymph % 21.4 % 24.0-44.0 [facility] ([place] [facility]) Cascade % 14.8 % 2.0-8.0 [facility] ([place] [facility]) Eos % 2.1 % 0.0-3.0 [facility] ([place] [facility]) Baso % 1.5 % 0.0-1.0 [facility] [facility] Nucleated Red Blood Cell % 0.0 % 0-0 MED ENT ([place] [facility]) Immature Granulocyte % 0.3 % 0-3.0 [facility] ([place] [facility]) Neutrophils # 2.0 10 1.5-8.5 [facility] ([facility]) Lymph # 0.7 10 1.5-5.0 [facility] ([place] [facility]) Eos # 0.1 10 0.0-0.5 [facility] ([place] [facility]) Cascade # 0.5 10 0.0-0.8 [facility] ([place] [facility]) Baso # 0.1 10 0.0-0.2 [facility] ([place] [facility]) ID Date Data Source [id number] 01/18/2021 10:39:00 AM EDT MED[facility] ([facility]) Name Value Range Interpretation Code Description Data Nadira rce(s) Supporting Document(s) Blood Urea Nitrogen 4 mg/dL 7-18 [facility] ([facility]) Glucose, Fasting 108 mg/dL 70-100 [facility] ([facility]) Creatinine For GFR 0.62 mg/dL 0.55-1.30 [facility] ([facility]) Glomerular Filtration Rate Laboratory test result [facility] ([place] [facility]) <content>Units are mL/min/1.73 m2</content>
<content></content>
<content>Chronic Kidney Disease Staging per NKF:</content>
<content></content>
<content>Stage I & II GFR >=60 Normal to Mildly Decreased</content>
<content>Stage III GFR 30- 59 Moderately Decreased</content>
<content>Stage IV GFR 15-29 Severely Decreased</content>
<content>Stage V GFR <15 Very Little GFR Left</content>
<content>ESRD GFR <15 on NEWSPAPER ILLUSTRATOR</content>
<content></content> Potassium Serum 4.4 meq/L 3.5-5.1 [facility] ([facility]) Sodium Level 140 meq/L 136-145 [facility] ([place] [facility]) Anion Gap 4 meq/L 8-16 [facility] ([facility]) Carbon Dioxide Level 31 meq/L 21-32 [facility] ([facility]) Chloride Level 105 meq/L 98-107 [facility] ([facility]) Ast/Sgot 40 U/L 7-37 [facility] ([facility]) Calcium Level 8.7 mg/dL 8.5-10.1 [facility] ([facility]) Alt/SGPT 24 U/L 12-78 [facility] ([facility]) Alkaline Phosphatase 158 U/L 45-117 [facility] ([facility]) Bilirubin,Total 0.6 mg/dL 0.2-1.0 [facility] ([facility]) Total Protein 5.8 GM/DL 6.4-8.2 [facility] ([facility]) Albumin 2.4 GM/DL 3.2-5.2 [facility] ([place] [facility]) Albumin/Globulin Ratio 0.7 1.2-2.2 [facility] ([place] [facility]) ID Date Data Source [id number] 01/18/2021 10:39:00 AM EDT MED[facility] ([facility]) Name Value Range Interpretation Code Description Data Nadira rce(s) Supporting Document(s) Magnesium [Moles/volume] in Serum or Plasma 1.7 mg/dL 1.8-2.4 [facility] ([place] [facility]) ID Date Data Source [id number] 01/18/2021 10:38:00 AM EDT MED[facility] ([facility]) Name Value Range Interpretation Code Description Data Nadira rce(s) Supporting Document(s) White Blood Count 4.6 10 4.0-10.0 [facility] ([facility]) Red Blood Count 4.02 10 4.00-5.40 MED[facility] ([facility]) Hemoglobin 13.0 g/dL 12.0-15.5 [facility] [facility] Hematocrit 41.1 % 36.0-47.0 [facility] ([place] [facility]) Mean Corpuscular Volume 102.2 fl 80.0-96.0 [facility] ([place] [facility]) Mean Corpuscular Hemoglobin 32.3 pg 27.0-33.0 [place] DENT ([place] [facility]) Red Cell Distribution Width 14.6 % 11.5-14.5 [place] DENT ([place] [facility]) Mean Corpuscular HGB Conc 31.6 g/dL 32.0-36.5 MEDE NT ([place] [facility]) Platelet Count, Automated 161 10 150-450 MEDE NT ([place] [facility]) Neutrophils % 65.3 % 36.0-66.0 [facility] ([facility]) Lymph % 18.9 % 24.0-44.0 [facility] ([place] [facility]) Baso % 1.1 % 0.0-1.0 [facility] ([place] [facility]) Eos % 1.3 % 0.0-3.0 [facility] ([place] [facility]) Cascade % 13.2 % 2.0-8.0 [facility] ([place] [facility]) Immature Granulocyte % 0.2 % 0-3.0 [facility] ([place] [facility]) Nucleated Red Blood Cell % 0.0 % 0-0 MED ENT ([place] [facility]) Neutrophils # 3.0 10 1.5-8.5 [facility] ([facility]) Cascade # 0.6 10 0.0-0.8 [facility] [facility] Lymph # 0.9 10 1.5-5.0 [facility] [facility]) Baso # 0.1 10 0.0-0.2 [facility] [facility]) Eos # 0.1 10 0.0-0.5 [facility] ([place] [facility]) ID Date Data Source [id number] 01/11/2021 11:23:00 AM EDT MED[facility] ([facility]) Name Value Range Interpretation Code Description Data Nadira rce(s) Supporting Document(s) Magnesium [Moles/volume] in Serum or Plasma 1.6 mg/dL 1.8-2.4 [facility] ([place] [facility]) ID Date Data Source [id number] 01/11/2021 11:23:00 AM EDT [facility] ([facility]) Name Value Range Interpretation Code Description Data Nadira rce(s) Supporting Document(s) Glucose, Fasting 108 mg/dL 70-100 [facility] ([facility]) Blood Urea Nitrogen 3 mg/dL 7-18 [facility] ([facility]) Creatinine For GFR 0.46 mg/dL 0.55-1.30 [facility] ([facility]) Glomerular Filtration Rate [facility] [facility]) <content>Units are mL/min/1.73 m2</content>
<content></content>
<content>Chronic Kidney Disease Staging per NKF:</content>
<content></content>
<content>Stage I & II GFR >=60 Normal to Mildly Decreased</content>
<content>Stage III GFR 30- 59 Moderately Decreased</content>
<content>Stage IV GFR 15-29 Severely Decreased</content>
<content>Stage V GFR <15 Very Little GFR Left</content>
<content>ESRD GFR <15 on NEWSPAPER ILLUSTRATOR</content>
<content></content> Chloride Level 106 meq/L 98-107 [facility] ([facility]) Sodium Level 142 meq/L 136-145 [facility] ([place] [facility]) Potassium Serum 3.3 meq/L 3.5-5.1 [facility] ([facility]) Anion Gap 3 meq/L 8-16 [facility] ([place] [facility]) Calcium Level 8.9 mg/dL 8.5-10.1 [facility] ([facility]) Carbon Dioxide Level 33 meq/L 21-32 [facility] ([facility]) Ast/Sgot 30 U/L 7-37 [facility] ([place] [facility]) Alt/SGPT 19 U/L 12-78 [facility] ([place] [facility]) Alkaline Phosphatase 130 U/L 45-117 [facility] ([facility]) Total Protein 5.4 GM/DL 6.4-8.2 [facility] ([facility]) Bilirubin,Total 0.8 mg/dL 0.2-1.0 [facility] ([facility]) Albumin 2.2 GM/DL 3.2-5.2 [facility] ([place] [facility]) Albumin/Globulin Ratio 0.7 1.2-2.2 [facility] ([place] [facility]) ID Date Data Source [id number] 01/11/2021 11:23:00 AM EDT MEDENT ([facility]) Name Value Range Interpretation Code Description Data Nadira rce(s) Supporting Document(s) White Blood Count 4.0 10 4.0-10.0 [facility] ([facility]) Hemoglobin 13.5 g/dL 12.0-15.5 [facility] ([facility]) Red Blood Count 4.16 10 4.00-5.40 [facility] ([facility]) Mean Corpuscular Volume 102.9 fl 80.0-96.0 [facility] ([place] [facility]) Hematocrit 42.8 % 36.0-47.0 [facility] ([place] [facility]) Mean Corpuscular Hemoglobin 32.5 pg 27.0-33.0 ME DENT ([place] [facility]) Mean Corpuscular HGB Conc 31.5 g/dL 32.0-36.5 MEDE NT ([place] [facility]) Red Cell Distribution Width 14.8 % 11.5-14.5 ME DENT ([place] [facility]) Platelet Count, Automated 140 10 150-450 MEDE NT ([place] [facility]) Cascade % 13.9 % 2.0-8.0 [facility] [facility] Neutrophils % 62.9 % 36.0-66.0 [facility] ([facility]) Lymph % 20.8 % 24.0-44.0 [facility] ([place] [facility]) Eos % 1.5 % 0.0-3.0 [facility] ([place] [facility]) Baso % 0.7 % 0.0-1.0 [facility] [facility]) Neutrophils # 2.5 10 1.5-8.5 [facility] ([facility]) Nucleated Red Blood Cell % 0.0 % 0-0 MED ENT ([place] [facility]) Immature Granulocyte % 0.2 % 0-3.0 [facility] ([place] [facility]) Lymph # 0.8 10 1.5-5.0 [facility] [facility]) Eos # 0.1 10 0.0-0.5 [facility] [facility] Cascade # 0.6 10 0.0-0.8 [facility] ([place] [facility]) Baso # 0.0 10 0.0-0.2 [facility] [facility] ID Date Data Source [id number] 01/04/2021 04:01:00 PM EDT MEDENT ([facility]) Name Value Range Interpretation Code Description Data Nadira rce(s) Supporting Document(s) Cancer Ag 125 [Units/volume] in Serum or Plasma 145.7 U/ML MEDENT ([place] [facility]) THE CA 125 ASSAY IS PERFORMED [facility] BY CHEMILUMINESCENCE AND SHOULD NOT BE COMPARED INTERCHANGEABLY WITH OTHER METHODS. IT SHOULD NOT BE USED ALONE A SCREENING TEST OR DIAGNOSIS FOR THE PRESENCE OR ABSENCE OF MALIGNANT DISEASE. PREDICTIONS OF DISEASE RECURRENCE SHOULD NOT BE BASED SOLELY ON VALUES OBTAINED FROM SERIAL PATIENT SERUM VALUES. Magnesium [Moles/volume] in Serum or Plasma 1.6 mg/dL 1.8-2.4 [facility] [facility] Carcinoembryonic Ag [Mass/volume] in Serum or Plasma 5.2 ng/mL [facility] [facility]) THE CEA ASSAY IS PERFORMED ON THE [employer] BY CHEMILUMINESCENCE AND SHOULD NOT BE COMPARED INTERCHANGEABLY WITH OTHER METHODS. IT SHOULD NOT BE USED ALONE A SCREENING TEST OR DIAGNOSIS FOR THE PRESENCE OR ABSENCE OF MALIGNANT DISEASE. PREDICTIONS OF DISEASE RECURRENCE SHOULD NOT BE BASED SOLELY ON VALUES OBTAINED FROM SERIAL PATIENT SERUM VALUES. ID Date Data Source [id number] 01/04/2021 04:01:00 PM EDT [facility] ([facility]) Name Value Range Interpretation Code Description Data Nadira rce(s) Supporting Document(s) Blood Urea Nitrogen 4 mg/dL 7-18 [facility] ([facility]) Glucose, Fasting 98 mg/dL 70-100 [facility]) Creatinine For GFR 0.46 mg/dL 0.55-1.30 [facility] ([facility]) Glomerular Filtration Rate Laboratory test result [facility] ([facility]) <content>Units are mL/min/1.73 m2</content>
<content></content>
<content>Chronic Kidney Disease Staging per NKF:</content>
<content></content>
<content>Stage I & II GFR >=60 Normal to Mildly Decreased</content>
<content>Stage III GFR 30- 59 Moderately Decreased</content>
<content>Stage IV GFR 15-29 Severely Decreased</content>
<content>Stage V GFR <15 Very Little GFR Left</content>
<content>ESRD GFR <15 on NEWSPAPER ILLUSTRATOR</content>
<content></content> Sodium Level 139 meq/L 136-145 [facility] ([place] [facility]) Potassium Serum 4.0 meq/L 3.5-5.1 [facility] ([facility]) Carbon Dioxide Level 32 meq/L 21-32 [facility] ([facility]) Anion Gap 5 meq/L 8-16 [facility] ([place] [facility]) Chloride Level 102 meq/L 98-107 [facility] ([facility]) Ast/Sgot 28 U/L 7-37 [facility] ([place] [facility]) Calcium Level 9.6 mg/dL 8.5-10.1 [facility] ([facility]) Bilirubin,Total 0.8 mg/dL 0.2-1.0 [facility] ([facility]) Alkaline Phosphatase 148 U/L 45-117 [facility] ([facility]) Alt/SGPT 20 U/L 12-78 [facility] ([place] [facility]) Total Protein 5.7 GM/DL 6.4-8.2 [facility] ([facility]) Albumin 2.7 GM/DL 3.2-5.2 [facility] ([place] [facility]) Albumin/Globulin Ratio 0.9 1.2-2.2 [facility] ([place] [facility]) ID Date Data Source [id number] 01/04/2021 04:01:00 PM EDT MED[facility] ([facility]) Name Value Range Interpretation Code Description Data Nadira rce(s) Supporting Document(s) White Blood Count 5.2 10 4.0-10.0 MED[facility] ([facility]) Hemoglobin 13.9 g/dL 12.0-15.5 [facility] ([facility]) Red Blood Count 4.19 10 4.00-5.40 [facility] ([facility]) Mean Corpuscular Hemoglobin 33.2 pg 27.0-33.0 [place] DENT ([place] [facility]) Hematocrit 42.6 % 36.0-47.0 [facility] Mean Corpuscular Volume 101.7 fl 80.0-96.0 [facility] ([place] [facility]) Red Cell Distribution Width 15.5 % 11.5-14.5 ME DENT ([place] [facility]) Mean Corpuscular HGB Conc 32.6 g/dL 32.0-36.5 MEDE NT ([place] [facility]) Platelet Count, Automated 152 10 150-450 MEDE NT ([place] [facility]) Neutrophils % 66.1 % 36.0-66.0 [facility] Lymph % 20.8 % 24.0-44.0 [facility] ([place] [facility]) Eos % 0.2 % 0.0-3.0 [facility] ([place] [facility]) Cascade % 11.9 % 2.0-8.0 [facility] ([place] [facility]) Immature Granulocyte % 0.4 % 0-3.0 [facility] ([place] [facility]) Nucleated Red Blood Cell % 0.0 % 0-0 MED ENT ([place] [facility]) Baso % 0.6 % 0.0-1.0 [facility] ([place] [facility]) Lymph # 1.1 10 1.5-5.0 [facility] ([place] [facility]) Cascade # 0.6 10 0.0-0.8 [facility] ([place] [facility]) Neutrophils # 3.5 10 1.5-8.5 [facility] Baso # 0.0 10 0.0-0.2 [facility] ([place] [facility]) Eos # 0.0 10 0.0-0.5 [facility] ([place] [facility]) ID Date Data Source [id number] 12/22/2020 10:15:00 AM EDT [facility] Name Value Range Interpretation Code Description Data Nadira rce(s) Supporting Document(s) EGD [facility] FBCJVi5xFvLVBlKrUBEkCkqPJZhkWAobFVFcE7U2ZHpyBu6NNUvijuUgJQGvXm4+RJPeEH5cnk2kJSDd gMy [file] R8+ePA7z6zHzgl/iDRBqvF2deOky5Q2/vKVzin [file] Employee Benefits Manager+YedC2JRcZbsERnB5hhben+OAGJjeSX5jqrx2dpmORqlEAzfaaAbayKcEqHAc8rN4KlAd/7x7QgfhG [file] Jeremías/2OdHojZDjYh5kmCvHmS207t758qHFxuzrKxlrQQk6lViYVVzQ6Tw2Qa+hFaeiggN4LEd1JJvKIrz 2cwFILzI/+1aqcQC/WEAHj5BJ36Xaydyl0pRHwVuk4 Dc7GtDEeILybLHxaAwM7Kn325I3x9c5JsHp0UypQWfvTShFkwb8djD+Oop7C8W+WaLbw2diLUUQ8/uVK 4xYFGA3Ft6/aetyyBUHExLuX/RYr64WL9J53Ba1eTZuNWuybtC9+8WrT42rdtbatcdbk/xynFpF17hcT rj0UYDYDtthIZzeklIh0g7edlHsb7j8WlH8ZpHS9xm 4gME4PwDfL/iM0/hpGyXQHatvxOj9wyqhf9by/6hg+py0kqE0YIJqFRZfAlERvR43t0Ytdt3WcD6fDG/ 2VkGnD0ermtZys8lSSrqXcZG6UcEwB2eJNwg93yeS3NY76B/BtQyG8jjwW8bBZQW7nngBaiq/Hsi7r9W /mSml3qXIFZ8oTieXhTBBaG32/5t9tDsZlQUL28zzz lLSm4VvZhzV4/Ffa3pxPmmHU6Jk7Ub+OQbsGjX4Np/RyivUdsBgKREnd8buGg2hxIkBffJRDzzltD2jc JH9cG9ytNwrF4mYjSVj62TwZzYIzrm6CmS/SagCzylbI4y3bmqS5LT4McUucHHFOfZl+VsDcV45WvMZI 64kQFpFFZv6hdWBq7rK+WmE6iRPXemKC0KSwiX2UXA +eDrpX9b7U2nSyMjy1Leh3wY8ANAMjP2OsPE2hiGi2X2piGiLb2HdyJ3ghLe+83+sRfZKAuwB+King+9U7 [file] r47inW2ST1cBIDlHxTlE4Vamvq2gGMCJWNFjZonFJ7LPAgBcStRq+QKt8ScdS8juw1hSAZqiK28T1+eulogio L/supervisor cigarette making department//nuastMnH0Tt8XnX8JgJ3eP3t+XfJmpUo5TU [file] uTDVqHliIZE4lHlR7FNG5zb9SnAHIaMZeoxyJxXgnZDBlvrERjmStiMRPUPdIuRtV5XL5ZCICKJ9I= ID Date Data Source [id number] 12/21/2020 04:13:00 PM [facility] CYTOPATHOLOGY REPORTName: JIMMY PUENTESMRN: [id number] Number: [id number] Date: 12/20/2020 00:00Received Date: 12/20/2020 11:26Physician(s): MACHO QUINTANILLA MD HAGHIR, SHAHANDEH F, MD Specimen(s) ReceivedA: THYROID NODULE, RIGHT, FINE NEEDLE ASPIRATION, CONSULTATION (12/15/2020)[id number]: THYROID NODULE, RIGHT, FINE NEEDLE ASPIRATION, CONSULTATION ([id number],SMEAR; [id number], CELL BLOCK) 12/01/2020linical History:60 year old with history of dysphagia/ difficulty swallowing with swellingof right neck. CT of neck, 11/30/20, shows poorly defined soft tissuemargins associated with peripherally enhancing nodule measuring 1.4 cm inright lobe. The findings are worrisome of an aggressive thyroid neoplasm.Patient also has history of high-grade endometrial carcinoma in 2007 andhistory of colon carcinoma. SP right colectomy. Thyroid nodule FNA wasperformed 12/01/20 showing no epithelial cells. FNA repeated 12/15/20,submitted for consultation.DiagnosisA. THYROID NODULE, RIGHT, FINE NEEDLE ASPIRATION, CONSULTATION (12/15/2020)[id number]: ACUTE INFLAMMATION AND NECROTIC DEBRIS IDENTIFIED (SEEMICROSCOPIC DESCRIPTION)B. THYROID NODULE, RIGHT, FINE NEEDLE ASPIRATION, CONSULTATION ([id number],SMEAR; [id number], CELL BLOCK) 12/01/2020: ACUTE INFLAMMATION AND NECROTICDEBRIS IDENTIFIED. Comment/cts/calReviewing [employer]: JOHN Licona(ASCP) (IAC)Davida Horne MDElectronically Signed By Jana Bermudez M.D. 12/21/2020 16:13:09The attending pathologist named above attests that he/she has personallyreviewed the relevant preparation(s) for the specimen(s) and rendered thefinal diagnosis. Microscopic DescriptionThinPrep smear of right thyroid nodule FNA, [id number], 12/15/20, showsscattered macrophages in a background of inspissated colloid,microcalcifications, abundant neutrophils and necrotic debris, which maybe a component of tumor or infectious process. No malignant tumor cellsare identified in this specimen. /ctsThinPrep smear, [id number], 12/01/20 and corresponding cell block, [id number],of right thyroid nodule FNA shows abundant neutrophils, few macrophages,and necrotic debris which may be a component of necrotic tumor orinfectious process. No thyroid elements or maliganant tumor cells areidentified in this specimen. /cts/mari Gross DescriptionReceived 3 slides and 1 paraffin block, 1 slide which is labeled"[id number], Jose Puentes" and 1 labeled "[id number] Jose Puentes,and 1 labeled [id number] Puentes, Maretta" the paraffin block is labeled"[id number] Dhaval Garcia" with corresponding pathology reports [facility], [facility] of [facility], [address] [place] [id number]. . .This report may include one or more immunohistochemical stain results thatuse analyte specific reagents. All positi ve and negative controls havebeen reviewed by the attending pathologist and are satisfactory. The testswere developed and their performance characteristics determined by [facility] Pathololgy department. They have not been cleared or approved by [place] Food and Drug Administration. The FDA has determined that suchclearance or approval is not necessary. Name Value Range Interpretation Code Description Data Nadira rce(s) Supporting Document(s) ID Date Data Source [id number] 12/15/2020 03:16:00 PM EDT [facility] ([facility], ) Name Value Range Interpretation Code Description Data Nadira rce(s) Supporting Document(s) Microscopic observation [Identifier] in Unspecified specimen by Non- gynecological cytology method Laboratory test result [facility] ([facility], ) SPECIMEN: FNA of right thyroi d mass Specimen received in cytolyt-clear and Afirma [...] cell block of FNA were sent to [facility] for consultation, they agree with the above findings. See consultation report [id number], scanned in EMR pathology module. 12/22/2020 - 075 Signed EPNELOPE PATE (ASCP) 12/16/2020 0839 (Prelim) Signed Macho Quintanilla MD 12/22/2020752 ID Date Data Source [id number] 12/19/2020 02:01:00 AM EDT [facility] Name Value Range Interpretation Code Description Data Nadira rce(s) Supporting Document(s) CALPROTECTIN FECAL [address] [facility] [place] [facility] Reference range: <=49Unit: ug/g REFERENC E INTERVAL: Calprotectin, Fecal by Immunoassay Less than 50 ug/g.........Normal 50-120 ug/g...............Borderline elevated, test should be re-evaluated in 4-6 weeks. 121 ug/g or greater.......Elevated Performed by [employer], [address] [place] [id number] [email or web address], Terrance Guerrero MD, Lab. Director ID Date Data Source [id number] 12/13/2020 02:55:29 PM EDT Laboratory [facility] [facility] SPECIMEN DESCRIPTION STOOLSPECIAL REQUESTS NONERESULT NEGATIVE FOR ENTERIC PATHOGENS BY PCR.NOTE: THIS MOLECULAR ASSAY DETECTS THE FOLLOWING ENTERIC PATHOGENS:CAMPYLOBACTER GROUP (COLI, JEJUNI, PAUL), SALMONELLA SPECIES,SHIGELLA SPECIES (DYSENTERIAE, BOYDII, SONNEI, FLEXNERI), VIBRIOGROUP (CHOLERAE, PARAHAEMOLYTICUS), YERSINIA ENTEROCOLITICA, SHIGATOXIN 1, SHIGA TOXIN 2, NOROVIRUS GROUP 1 AND 2, ROTAVIRUS A. REPORT STATUS FINAL 12/14/2020 Name Value Range Interpretation Code Description Data Nadira rce(s) Supporting Document(s) SPECIMEN DESCRIPTION Laborator y [facility] C DIFF TOXIN B (NEG) Laboratory [place] [facility] 027 NAP1 B1 (NEG) Laboratory [facility] COMMENT Laboratory [facility] IS CLINICALLY INDICATED, PLEASE CONTA CT THE MICROBIOLOGY LABORATORY ([phone]) WITHIN 3 DAYS OF THIS REPORT. ID Date Data Source [id number] 12/14/2020 02:32:47 PM EDT [place] [facility] SPECIMEN DESCRIPTION STOOLSPECIAL REQUESTS NONERESULT NEGATIVE FOR ENTERIC PATHOGENS BY PCR.NOTE: THIS MOLECULAR ASSAY DETECTS THE FOLLOWING ENTERIC PATHOGENS:CAMPYLOBACTER GROUP (COLI, JEJUNI, PAUL), SALMONELLA SPECIES,SHIGELLA SPECIES (DYSENTERIAE, BOYDII, SONNEI, FLEXNERI), VIBRIOGROUP (CHOLERAE, PARAHAEMOLYTICUS), YERSINIA ENTEROCOLITICA, SHIGATOXIN 1, SHIGA TOXIN 2, NOROVIRUS GROUP 1 AND 2, ROTAVIRUS A. REPORT STATUS FINAL 12/14/2020 Name Value Range Interpretation Code Description Data Nadira rce(s) Supporting Document(s) ID Date Data Source [id number] 12/01/2020 01:27:00 PM EDT [facility] Name Value Range Interpretation Code Description Data Nadira rce(s) Supporting Document(s) Surgical pathology study Laboratory test result [facility] ([facility]) FINAL DIAGNOSIS Thyroid nodule, cell block: Mixed inflammatory cells. No epithelial cells identified for evaluation of carcinoma. See comment. COMMENT: There is no evidence for malignancy in this specimen. If clinically indicated and concern for malignancy persists, a re-biopsy is recommended. 12/03/2020 - 1458 CLINICAL DIAGNOSIS Right thyroid nodule 12/02/20201229 GROSS DIAGNOSIS Received in CytoLyt labeled "right thyroid nodule biopsy" for cell block. -SVY 12/02/20201229 Signed LIANNA KIRBY MD 12/03/20201458 ID Date Data Source [id number] 12/01/2020 01:15:00 PM EDT [facility] ([facility]) Name Value Range Interpretation Code Description Data Nadira rce(s) Supporting Document(s) Microscopic observation [Identifier] in Unspecified specimen by Non- gynecological cytology method Laboratory test result [facility] ([facility]) SPECIMEN: FNA of right thyroi d nodule Specimen received in cytolyt-red SPECIMEN ADEQUACY: Unsatisfactory for evaluation CATEGORIZATION: DESCRIPTIONS: No follicular component in a background of abundant neutrophils, macrophages, and debris. COMMENTS: 12/02/2020810 Signed PENELOPE PATE (ASCP) 12/02/2020810 (Prelim) Signed LIANNA KIRBY MD 12/03/20201458 ID Date Data Source [id number] 11/30/2020 06:42:00 PM EDT [facility] ([facility]) Name Value Range Interpretation Code Description Data Nadira rce(s) Supporting Document(s) Laboratory test finding (navigational concept) 46.0 % 38.0-51.0 [facility] ([facility]) Laboratory test finding (navigational concept) 106 mg/dL 70-105 [facility] ([facility]) Laboratory test finding (navigational concept) 136 meq/L 136-145 [facility] ([facility]) Laboratory test finding (navigational concept) 3.0 meq/L 3.5-5.1 [facility] Laboratory test finding (navigational concept) 4.6 mg/dL 4.5-5.3 [facility] ([facility]) Laboratory test finding (navigational concept) 92 meq/L 98-109 [facility] ([facility] Laboratory test finding (navigational concept) 30.0 MM/L 23.0-27.0 [facility] ([facility]) Laboratory test finding (navigational concept) 4 mg/dL 8-26 [facility] Laboratory test finding (navigational concept) 0.4 mg/dL 0.6-1.3 [facility] ([facility]) ID Date Data Source [id number] 11/30/2020 06:38:00 PM EDT [facility] Name Value Range Interpretation Code Description Data Nadira rce(s) Supporting Document(s) CPK Creatine Phosphokinase 18 U/L 26-192 [facility] MB/CK Relative Index 5.56 [facility] ([facility]) <content>DIAGNOSIS CRITERIA</content>
<content>MMB ng/ml Relative Index (RI)</content>
<content>NON-AMI < or = 5 N/A</content>
<content>WILBURN ZONE > 5 < or = 4</content>
<content>AMI > 5 > 4</content>
<content></content> CK-MB Value Mass Laboratory test result [facility] ([facility]) Troponin I Laboratory test result [facility] ([facility]) <content>Troponin I Reference Interval f or Siemens [place] LOCI:</content>
<content></content>
<content>99th Percentile= 0.00-0.045 ng/ml</content>
<content></content>
<content>Risk Stratification:</content>
<content><= 0.10 ng/ml Decreased Risk for Adverse Clinical</content>
<content>Events.</content>
<content>0.10-1.50 ng/ml Increased Risk for Adverse Clinical</content>
<content>Events. Evaluation of additional</content>
<content>criterion and/or repeat testing in 2-6</content>
<content>hours is suggested to rule out myocardial</content>
<content>damage.</content>
<content>>= 1.50 ng/ml Indicative of Myocardial Injury.</content>
<content></content> ID Date Data Source [id number] 11/30/2020 06:38:00 PM EDT [facility] ([facility]) Name Value Range Interpretation Code Description Data Nadira rce(s) Supporting Document(s) Ast/Sgot 19 U/L 7-37 [facility] ([place] [facility]) Alt/SGPT 22 U/L 12-78 [facility] ([facility]) Alkaline Phosphatase 218 U/L 45-117 [facility] ([facility]) Bilirubin,Total 1.2 mg/dL 0.2-1.0 [facility] ([facility]) Bilirubin,Direct 0.5 mg/dL 0.0-0.2 [facility] ([facility]) Total Protein 6.3 GM/DL 6.4-8.2 [facility] ([facility]) Albumin 2.9 GM/DL 3.2-5.2 [facility] ([place] [facility]) Albumin/Globulin Ratio 0.9 1.2-2.2 [facility] ([facility]) ID Date Data Source [id number] 11/30/2020 06:38:00 PM EDT [facility] ([facility]) Name Value Range Interpretation Code Description Data Nadira rce(s) Supporting Document(s) Lipoprotein lipase [Enzymatic activity/volume] in Serum or Plasm a 47 U/L 73-393 [facility] ([facility]) ID Date Data Source [id number] 11/30/2020 05:37:00 PM EDT [facility] ([facility]) Name Value Range Interpretation Code Description Data Nadira rce(s) Supporting Document(s) White Blood Count 15.2 10 4.0-10.0 [facility] ([facility]) Red Blood Count 4.27 10 4.00-5.40 [facility] ([facility]) Hemoglobin 13.8 g/dL 12.0-15.5 [facility] [facility]) Hematocrit 42.7 % 36.0-47.0 [facility] [facility] Mean Corpuscular Volume 100.0 fl 80.0-96.0 [facility] ([facility]) Mean Corpuscular Hemoglobin 32.3 pg 27.0-33.0 [facility] ([facility]) Mean Corpuscular HGB Conc 32.3 g/dL 32.0-36.5 [facility] ([facility]) Red Cell Distribution Width 18.0 % 11.5-14.5 [facility] ([facility]) Platelet Count, Automated 117 10 150-450 [facility] ([facility]) Neutrophils % 80.6 % 36.0-66.0 [facility] ([facility]) Lymph % 7.3 % 24.0-44.0 [facility] [facility]) Cascade % 8.2 % 2.0-8.0 [facility] [facility]) Eos % 0.2 % 0.0-3.0 [facility] ([place] [facility]) Baso % 0.5 % 0.0-1.0 [facility] [facility]) Immature Granulocyte % 3.2 % 0-3.0 [facility] ([facility]) Nucleated Red Blood Cell % 0.0 % 0-0 [facility] ([facility]) Neutrophils # 12.2 10 1.5-8.5 [facility] ([facility]) Cascade # 1.3 10 0.0-0.8 [facility] ([place] [facility]) Lymph # 1.1 10 1.5-5.0 [facility] [facility]) Eos # 0.0 10 0.0-0.5 [facility] ([place] [facility]) Baso # 0.1 10 0.0-0.2 [facility] ([place] [facility]) ID Date Data Source [id number] 11/09/2020 07:54:03 AM EDT [facility] Name Value Range Interpretation Code Description Data Nadira rce(s) Supporting Document(s) *Follow Up Visit DONA v1 [facility] RPPHNt7uIwRJCbDhx2wbVCnyDPDdg5GuAJi6SS7OE833dUM4jBhzwNJsdZZfFmh6XAgrQbLeoKX0fenV tKQ [file] 4xC/MVX74ddmf+2d/ozUN0uwCVA9yR0Z3c11vsc2j0JLJbxf1UdLcFY+pIK49XZYxwgc6r8QXRDP6/engineer technical staff [file] 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 apprentice//GnwxCGk5u+kzkmkulyR0z/WlyQod6facPr7b9 [file] IEDFDEbwN4s9JRS5EL8WUd0BYw8Ar1PffwM4qcAjTSkrTLTjEKcFDiYyDZ6GXUe= ID Date Data Source [id number] 11/01/2020 09:59:00 AM EDT [facility] ([facility]) Name Value Range Interpretation Code Description Data Nadira rce(s) Supporting Document(s) Blood Urea Nitrogen 7 mg/dL 7-18 [facility] ([facility]) Glucose, Fasting 80 mg/dL 70-100 [facility] ([facility]) Sodium Level 138 meq/L 136-145 [facility] ([facility]) Creatinine For GFR 0.54 mg/dL 0.55-1.30 [facility] ([facility]) Glomerular Filtration Rate Laboratory test result [facility] ([facility]) <content>Units are mL/min/1.73 m2</content>
<content></content>
<content>Chronic Kidney Disease Staging per NKF:</content>
<content></content>
<content>Stage I & II GFR >=60 Normal to Mildly Decreased</content>
<content>Stage III GFR 30-59 Moderately Decreased</content>
<content>Stage IV GFR 15-29 Severely Decreased</content>
<content>Stage V GFR <15 Very Little GFR Left</content>
<content>ESRD GFR <15 on NEWSPAPER ILLUSTRATOR</content>
<content></content> Chloride Level 98 meq/L 98-107 [facility] Potassium Serum 3.3 meq/L 3.5-5.1 [facility] ([facility]) Anion Gap 11 meq/L 8-16 [facility] Calcium Level 9.2 mg/dL 8.5-10.1 [facility] ([facility] Carbon Dioxide Level 29 meq/L 21-32 [facility] ([facility]) ID Date Data Source [id number] 11/01/2020 09:59:00 AM EDT [facility] ([facility]) Name Value Range Interpretation Code Description Data Nadira rce(s) Supporting Document(s) Thyroid Stimulating Hormone 3.050 uIU/ML 0.358-3.740 [facility] ([facility]) Free T4 1.66 ng/dL 0.76-1.46 [facility] ([facility]) ID Date Data Source [id number] 10/21/2020 01:51:25 PM EDT [facility] Name Value Range Interpretation Code Description Data Nadira rce(s) Supporting Document(s) *Follow Up Visit DONA v1 [facility] DORVTz1uHiTJXzUbk3azICbwXTOwn3JcZCw8EI1OF6QwR9ENHPboqUImT42iHNFliBRgcc5MO1M6fKFl gL0 [file] hw5HzAwH28ecNa1e98ozdg9U09KYF36I4N49Ze7SRF/BtY1hur/Y3tu5DH6X8F6nJjTs3//vp patient/TwPy6T [file] 0tx5dly105SCd9n61e52hg/TEuB+qE9N63FZ8FCgadmtVQ+3SjSM8+radio station engineer/ZuvONZ50BhoRf2R4A28f1p [file] cfGjGND3ZTShNn9XEj5ZEo9Xv5CwtkM7xnDyNSszYVZ6JgEFAqZgTZ6XDJc= ID Date Data Source [id number] 10/21/2020 03:38:24 PM EDT Laboratory [place] [facility] SPECIMEN DESCRIPTION STOOLSPECIAL REQUESTS NONERESULT NEGATIVE FOR ENTERIC PATHOGENS BY PCR.NOTE: THIS MOLECULAR ASSAY DETECTS THE FOLLOWING ENTERIC PATHOGENS:CAMPYLOBACTER GROUP (COLI, JEJUNI, PAUL), SALMONELLA SPECIES,SHIGELLA SPECIES (DYSENTERIAE, BOYDII, SONNEI, FLEXNERI), VIBRIOGROUP (CHOLERAE, PARAHAEMOLYTICUS), YERSINIA ENTEROCOLITICA, SHIGATOXIN 1, SHIGA TOXIN 2, NOROVIRUS GROUP 1 AND 2, ROTAVIRUS A. REPORT STATUS FINAL 10/22/2020 Name Value Range Interpretation Code Description Data Nadira rce(s) Supporting Document(s) SPECIMEN DESCRIPTION Laborator y [place] [facility] C DIFF TOXIN B (NEG) Laboratory [place] [facility] 027 NAP1 B1 (NEG) Laboratory [facility] COMMENT Laboratory [place] [facility] IS CLINICALLY INDICATED, PLEASE CONTA CT THE MICROBIOLOGY LABORATORY ([phone]) WITHIN 3 DAYS OF THIS REPORT. ID Date Data Source [id number] 10/22/2020 02:26:45 PM EDT [facility] [place] [facility] SPECIMEN DESCRIPTION STOOLSPECIAL REQUESTS NONERESULT NEGATIVE FOR ENTERIC PATHOGENS BY PCR.NOTE: THIS MOLECULAR ASSAY DETECTS THE FOLLOWING ENTERIC PATHOGENS:CAMPYLOBACTER GROUP (COLI, JEJUNI, PAUL), SALMONELLA SPECIES,SHIGELLA SPECIES (DYSENTERIAE, BOYDII, SONNEI, FLEXNERI), VIBRIOGROUP (CHOLERAE, PARAHAEMOLYTICUS), YERSINIA ENTEROCOLITICA, SHIGATOXIN 1, SHIGA TOXIN 2, NOROVIRUS GROUP 1 AND 2, ROTAVIRUS A. REPORT STATUS FINAL 10/22/2020 Name Value Range Interpretation Code Description Data Nadira rce(s) Supporting Document(s) ID Date Data Source [id number] 10/24/2020 04:56:30 PM EDT [facility] [place] [facility] SPECIMEN DESCRIPTION STOOLSPECIAL REQUESTS NONERESULT NEGATIVE FOR ENTERIC PATHOGENS BY PCR.NOTE: THIS MOLECULAR ASSAY DETECTS THE FOLLOWING ENTERIC PATHOGENS:CAMPYLOBACTER GROUP (COLI, JEJUNI, PAUL), SALMONELLA SPECIES,SHIGELLA SPECIES (DYSENTERIAE, BOYDII, SONNEI, FLEXNERI), VIBRIOGROUP (CHOLERAE, PARAHAEMOLYTICUS), YERSINIA ENTEROCOLITICA, SHIGATOXIN 1, SHIGA TOXIN 2, NOROVIRUS GROUP 1 AND 2, ROTAVIRUS A. REPORT STATUS FINAL 10/22/2020 Name Value Range Interpretation Code Description Data Nadira rce(s) Supporting Document(s) CRYPTOSPORIDIUM AG Laboratory [place] [facility] NegativeReference range: Negative Perfor med By: [facility] [employer] [address] [place] [address] Portable Track Line Marker: Naa Pisano MD GIARDIA ANTIGEN Laboratory [facility] NegativeReference range: Negative Perfor med By: [facility] [employer] [address] [place] [address] Portable Track Line Marker: Naa Pisano MD ID Date Data Source [id number] 10/07/2020 09:46:33 AM EDT [facility] Name Value Range Interpretation Code Description Data Nadira rce(s) Supporting Document(s) *Follow Up Visit DONA v1 [facility] QOPBXh6vTgMUQeJui7vrETgyNQLbq4JzJUk5ZH8NV503fIJ1rUkupNBgdOReFdy6YJgwKWXmvE62tJQ2 2LT [file] WLThe3D534X45/eT1+FRptB8dzm2soNm40M09Vt377 mx429AfSAfGVIjj8LUazirw2ZB9FqU5cs885m/D5f/3s09//ep/XN876v0z/XFKAIO5iJzOepYsBNCw8 YNldaMFsFoQZhCMja69Xk+6firJHd62bBBRXvMMUoulqZ7Bzz/99z5PaOY/e/TIfg7Qc+jnc3tIMSDz/ c3O4VKgMQgjtuu7qPv9+Xt5ghGe4/L1reX/8/w/G+8 APY2jL4/Z+uW47lUlwsN3/aGz5/vlAoQD9pPaf7IeA2aivZ+PvXs9/6q8VoYlJ4lART3wdbSMjA814/u EPsTg19vaN/pgzB2Da+TYtj0zL381/10hSSg560tQrmhQ2dM/W5eZeStt31/4kcsN3b6RgSpxU/JL2j2 a0y3BuhEcfP1+A8rgv7Aiz4fZQx5oTqOq+IY6r82lS 8/iYwojoQW31wqiY5aLqjUF8XW1TU/4/zqa+KKm55sNV8T4V3DZFz+xmhL8sh0cmcZz2+pfxXI5s29aj nIT+sV1g77dbb7R+OT9y/+KOasKrf24grjTm0iMYinLDBB1Lw52thDk3D7m4h29uLZ20BOrehpfdAA7m V7NsdfP8n7u8t+V4Yv2XZwJgPksB6ntvc81H+WxfR3 i8EL7psF9AG3fpI10k36u28gbq0vq73Ev29MWwosh40/LkVU9Vw9yJp7jn3xe25pf656o+h6yRhmM474 6PP/m88qZIaC/Tfqzm25Q4/eQ/taanZ2I4h9vS1tvK/HRrBS+oD72BQ4qt+XYSvX/15VzVf4YcyW+nca dopyeNo/RyvIS+NAqm3ex1DTU2AjJWVx/N01X2x/nO /MUm579DV0V+IfXA4Sw0ViwreqxJK3+/Ot9uOpSo6eFRprqIdp87I4u81Bxff6wO+V1KdfZWZwlcic7h eLwHdjg8Lqjl9VvJuNDL6gOo6Oaaa00RlY5akf523rWUd/fePEnTz/cvnUe8e/iJfcXks/aT6mzqKj6b p/a0BxQ6mE4x6uB2sszGo7b5a9/engineer technical staff/q7KJ7i2dp/s1 [file] OEATtEAnDJ9zNTdJ+5YxaPNv+vwh+senior writer/PFW7+Vq36 dp2bI0Wi+VHsAunWGvj6rpxmiABoiMjuRT2bcwMYry8rp0anSinUa63VzJbhjnoNvrjDxN4n4gEBZP16 /+uj3GPnNE7q43haAVW6giM3B41GK7oOdQoYF+FZZ8+ujBLLZnaAn1sccDhrLitPqJ1p3HVCBDiJd1sX 0dFgxKFClf0ibwwDZwiNyjpyqieS4wcnfEbPwDFdW0 79QPNFftjA8IoC4LAZTqF4wFUQyBBTHmZnqdoOCOtvH9IrTd21nD5uynM0o4ckGGJLWkKtBQE9tqZojU 6CNNrfjpMeEucBGhfcMLNDPoBpPYHOWsMuIURuMYSxUYGeBtR6NeKpKb5JLQUdZUEkKTGzEzDgFMUiWX MnVSukJDXxJMNwJbP7BQKuSEZtGL7HIlCyISEdGIR1 LClnYFAqDMZpuk2VULAuMCAmPBF9NRWvCSXeSTWpPTbcVVOrIHToYkBdAXRxNROrLD3BFdIzCMGlZYH9 NNnyCUFrUROqvh3CZIJiLAMpFzQrNgUtRHJkOKIgFJlpEVEzLXT6LYA4NDBzAUBkMT7OVqUaJQDtRIOm GAshXKEhRBWbfm6FBBPvUSQiMxZcPMCjSYZaYXVqYP rsGQYaWVMfBILtPRCuMFVrIO1UZwOkNJBmWERoIrnrKGHvDCMwzy5BAOIgXJXqGjZ3FILdZWKfRIFsMP tpUQAnWQLcTwntBOBrLZWpYT4VBvJrWZDfMXOsHfXvHPPxUQWcuc4DGZDlTRIlYhH5LZLsJHEqWUAkOF ulXQQeAUCtHuGaKTDlGMCsOQ1CZuMiEGWhQPI6JcVk OMDrKGTlad3EQUAiRHOfYiTuXoOuFYZwUNMxMMowLNJxPOXkUDS9UCWmCHSoLW8GOsOuUQRrOHGxNKEm HJNzRTZwlt7RQRMnNVEaMyL7SjLsVPFxTDInHQlzVRMdTQV8OYpiLVXcYNEnFR0BEcUwQEWwXKRiMZwp XPYpCMOowj6SMLJrGHZ9Olu6VXAtDWRxNBCsVEwrVZ LmXJJ2IME3CGXiXDNcEZ3KSoFiWWNtUAMeQGrnCYFqOLZglv3EJXIfDFZ4ZJU7YrLbAXKcIIGxEPhyWT EqMHB5Ttv8TLDuDYDhDM1NYeVjEJQrGLT9EBZxLQZaNJPfye6BNRJkEHI9AdK9JQGsMSEnVEDpRFbiXV RaGDu0CeQ1PTQhAFVdNV5FGoFjOBZwCSNuMIQuDJSf YBXpok3PVPEhBMM3CsLwOkXgINStLQGdADdnWTHqXZj4NIS9RTXmKATjVJ9HDcMuWIVcUYV1IvLwTCIf KWRlxx3NKLGjTTEjUUS8FMYpRNJnZONsOZdjKZGnBZX2LJAmKLJaBNAqHQ7DDmYxQVDkFPM0TvDvLVMa NNLxgg0HEZPwDEKuUYX2FBGfCBUqKDWmYJvxCCRgEP V4BMU8PUDxTEFaXQ7SGwEdHHHnBCb3ZnVpEBTaPXNhzi4RVDTpHJNhAWH9QIEoGHAlYHRrFGreCGZnIJ P4YUouNPZlIEVnHZ7PYtMgKXyvDJRBMdp3MNvfLu2foRWnCSFjLw3UM6jgWg7oOLlkYBIJZSygM9n7LT F6FH1ZUt0UHl5Fs5LyhlE9nmYdZNpzXqT7RkpGDkCtXO9RLId= ID Date Data Source [id number] 10/02/2020 08:41:00 PM EDT [facility] BILATERAL SCREENING TOMOSYNTHESIS 3D DIG ITAL MAMMOGRAM WITH CAD COMPARISON: Comparison is made to the prior exam dating back to 01/19/2012 LAST CLINICAL BREAST EXAM: 2019 [facility] Breast Cancer Risk Evaluation (Tuer-Adityazick Model v.8)This patient - Lifetime risk (to age 85): 2.5% Lifetime population risk (to age 85): 9.8% Probability BRCA 1: 0.01%Probability BRCA 2: 0.05% TECHNIQUE: Bilateral craniocaudal and medial lateral oblique 3D digital mammograms were obtained using tomosynthesis and CAD. Technologist notes patient's right-sided chest port was excluded from exam, limiting positioning. The exam is limited bilaterally. Technologist also notes that patient reports 25 pound weight loss. FINDINGS: There are scattered areas of fibroglandular density. The exam is markedly limited due to difficulty with positioning. No primary or secondary signs of malignancy are detected. IMPRESSION: Normal mammogram. Recommend routine yearly mammogram. BI-RADS 1 - NEGATIVE Name Value Range Interpretation Code Description Data Nadira rce(s) Supporting Document(s) ID Date Data Source [id number] 09/24/2020 11:46:00 AM EDT [facility] ([facility]) Name Value Range Interpretation Code Description Data Nadira rce(s) Supporting Document(s) White Blood Count 7.0 10 4.0-10.0 [facility] ([facility]) Red Blood Count 4.00 10 4.00-5.40 [facility] ([facility]) Hemoglobin 12.7 g/dL 12.0-15.5 [facility] [facility] Hematocrit 41.1 % 36.0-47.0 [facility] [facility] Mean Corpuscular Volume 102.8 fl 80.0-96.0 [facility] ([facility]) Mean Corpuscular Hemoglobin 31.8 pg 27.0-33.0 [facility] ([facility]) Mean Corpuscular HGB Conc 30.9 g/dL 32.0-36.5 [facility] ([facility]) Platelet Count, Automated 157 10 150-450 [facility] ([facility]) Red Cell Distribution Width 17.4 % 11.5-14.5 [facility] ([facility]) Neutrophils % 64.8 % 36.0-66.0 [facility] ([facility]) Lymph % 14.8 % 24.0-44.0 [facility] ([place] [facility]) Cascade % 17.0 % 2.0-8.0 [facility] [facility]) Eos % 0.6 % 0.0-3.0 [facility] [facility]) Baso % 1.4 % 0.0-1.0 [facility] [facility]) Immature Granulocyte % 1.4 % 0-3.0 [facility] ([facility]) Nucleated Red Blood Cell % 0.0 % 0-0 [facility] ([facility]) Neutrophils # 4.5 10 1.5-8.5 [facility] ([facility]) Lymph # 1.0 10 1.5-5.0 [facility] [facility]) Cascade # 1.2 10 0.0-0.8 [facility] [facility]) Eos # 0.0 10 0.0-0.5 [facility] [facility]) Baso # 0.1 10 0.0-0.2 [facility] [facility]) ID Date Data Source [id number] 09/24/2020 11:46:00 AM EDT [facility] ([facility]) Name Value Range Interpretation Code Description Data Nadira rce(s) Supporting Document(s) Phosphate [Moles/volume] in Serum or Plasma 3.6 mg/dL 2.5-4.9 [facility] ([facility]) Magnesium [Moles/volume] in Serum or Plasma 1.9 mg/dL 1.8-2.4 [facility] ([facility]) ID Date Data Source [id number] 09/24/2020 11:46:00 AM EDT [facility] ([facility]) Name Value Range Interpretation Code Description Data Nadira rce(s) Supporting Document(s) Glucose, Fasting 93 mg/dL 70-100 [facility] ([facility]) Creatinine For GFR 0.52 mg/dL 0.55-1.30 [facility] ([facility]) Blood Urea Nitrogen 4 mg/dL 7-18 [facility] ([facility]) Glomerular Filtration Rate Laboratory test result [facility] <content>Units are mL/min/1.73 m2</content>
<content></content>
<content>Chronic Kidney Disease Staging per NKF:</content>
<content></content>
<content>Stage I & II GFR >=60 Normal to Mildly Decreased</content>
<content>Stage III GFR 30- 59 Moderately Decreased</content>
<content>Stage IV GFR 15-29 Severely Decreased</content>
<content>Stage V GFR <15 Very Little GFR Left</content>
<content>ESRD GFR <15 on NEWSPAPER ILLUSTRATOR</content>
<content></content> Sodium Level 142 meq/L 136-145 [facility] ([facility]) Chloride Level 104 meq/L 98-107 [facility] ([facility]) Potassium Serum 3.6 meq/L 3.5-5.1 [facility] ([facility]) Anion Gap 5 meq/L 8-16 [facility] ([facility]) Carbon Dioxide Level 33 meq/L 21-32 [facility] ([facility]) Calcium Level 9.3 mg/dL 8.5-10.1 [facility] ([facility]) ID Date Data Source [id number] 09/23/2020 08:30:00 AM EDT [facility] Name Value Range Interpretation Code Description Data Nadira rce(s) Supporting Document(s) EGD-Sigmoid[facility] SNWPWv0eAaHCBdOjCHKdJiaZTQzlWXrzHBXxF4A6QShpGe3BKTqoriFeJMGpNy8+DORyUD8apt2dMGLx gMy [file] data steward+dAy1LrBnbU+MIjkYvXaLn9+vqXAutG6khsxOIuZpu1w0mnyFVJ7hLdP/MI7k+/3qVCAJo/Pw2Fg0b [file] Rd7hGfUhSZcTJ+1uBVWwR9LCtylkWS9OkHSn0k6eJEC9ruYkgB9ru45UELW+nEV0A+5Z5Ce1oguH+central service tech [file] Seng+uzTSWs8iH6rGTfQuj5rLFxluVOIn+wBZTt4sGhsLh/p0aSRKdEmabdmDOC3RQ6rDCzO0qNME4lRG TbrlxOHQhm8e0yQu6z3Tf2YOHykLXCnyB9Lu0jFPP07PDctUvbO7ouRBCTNifdBotJXsbjQg/3sQ7S9Z aExj2XFWc5tQ8krQMul/sAZITpffx/UDKtMLIy91Q9 eC9a3i6w0uZkUlruhhtjd0+DLQd8Xf/o+7RG6ojOlovXyUnyeN3g/nLnPvQdGvfcV+4mqv1UBMxvX8ST 1Qcp1Ulztu+FiYa19LOLQmf5MJkg3iF3qN0vWMEmbetHl7LNrAEUR6qzdW1sA/SfwjGQH+tquRDAdWMh rqlILLUAmgMa0C/eDm8nQ7Qs1AQfo0CmLOypHaRWll FWlZL1MJ32A5yURI3bgjToJsDBBo3a6vSim3KdXbKX0/QasU8JHgPeTl6XpOVFp7DNN1SzGqP0ezVe/x HjCg/Kam8pVZyWxk7mp0r/clamp remover+g9wj9fzLVaIU1dctrkakdP7mrbDgdOMO47wPIUUPazXN+tw9Ycc2L9 [file] oTWGHOKBFhn8AasnN6RMFOHmPR4Q44ONTAC5z8vQuM 8HNIavQU8cntJJPYhGm/yEGDvpwoMV1D24njjObpAz+JJb1bLCXtLVXsxQQVmDsw8JoPM3bQsqwninMg JssWTbS3JEN3SFLEFdqITMdE0Hk91K7qoQpwrr38DGX9vDNvy7nNM3zjH6ZCvbzBKK2d7OKvnh3Oig5v KRr1W1DleRKYhJWiQdkgTq0aOtr1t2dG2pxjNN9FpL fxYTHuDWmr4YFMi9zlzbVUmNrKzwj6oszSHmy7uwVunLF0L4bpNiHBeQhfFqvss7GBqJSmbOZjGplMzq 44r12hZogITb79OJrQDTsa8iZ1UcYeo6RbPWzbTPfQ3C3ttyTR2lmokRmDtLkWdfPeOcUmNrgi2b4Yyn cp0ldsdaOGerKCQkkOKYJUHY1lfTtrXBxPiiv0YgS/ F4PAxW5SKZ2szqU7ObMm0P6K524jh0A/2kV8P/OTGRhO4+FfYSK99oCi64YPOyM6tlPkcDR63htmmZ2F BBVWvdaJuU13Gpuw6/tE4wsjXjPVMKnkJykyQXRkQc8j5XijSm7LuCTcojDZ3he7SGMXavqT7xRWHx3X hrYGNmsfhnI2XTKr0elqjNJ4ZRKslMkjirfCjlW2+p Dsru59M9iM2XDR4m07RekIbtBQXS3I74dJq4jOwvahMKG/27L68REqfq5CGGFY19wl8AxyM9GNN/+hand ornament maker [file] making machine operator/ [file] R/+sQjmj6EMNqMvFyzX9eslUNrQvzJ2TEstLKbK7plRiDu44gDAPYqZlja1UqKvzidoNYIvVOx+h+inspector barrel [file] pneACp8aoEArGt4mEUuDYpdgM1mvOr5x1NuHNHJ7CO6mx/7R4n9m6CX6J8Xl4j7RT393b071PSap/+Employee Benefits Manager [file] vp patient+elSeEC/yCxEfTP0y+rW+moFMtvcdhcULG+sqECBlkw6MqsurE1wr7VDnXtgOqO0jI/u1831N5mBf8 [file] ApZ6RVmvBvScMSzgxKe2xtrj2a4G9iu8hnd7BPVU7Dpw9jTfkF59BMxbRUs291d3gPdiW9mHGk0cz+data steward [file] qRZqJOko5o6zQldc3vg+Pickle Sorter/B2euxRGEpH61ZekYzO87OE9wi+7rYwj7U9skeV8AGsRYVeOCzMyWmst1b [file] +TEJIKnRNSn7yFs1hDv2FRYLzv/g/data steward+TXUyG5L66F1hktPnPpsS4hVDKGd6xXLmbwZa/3CVGGlYFtGc [file] JhPrMsdFONYis0oUikRcdffaEiUpslYv2lu8u9kXFwEpwEBW90cbcitbidvJiLPQ7rSnjMLMhLPM+plate glass installer [file] ///y+I/m/+Gwf3hM89uHw7TuMUwjArTxmWOOg [file] R4GKlmUWDTRh== ID Date Data Source [id number] 09/20/2020 12:21:00 PM EDT [facility] Name Value Range Interpretation Code Description Data Nadira rce(s) Supporting Document(s) SARS coronavirus 2 RNA [Presence] in Res piratory specimen by KARLA with probe detection NOT DETECTED [facility] This lab was reported by [facility] [place]. ID Date Data Source [id number] 09/17/2020 01:15:00 PM EDT [facility] ([facility]) Name Value Range Interpretation Code Description Data Nadira rce(s) Supporting Document(s) Blood Urea Nitrogen 2 mg/dL 7-18 [facility] ([facility]) Glucose, Fasting 96 mg/dL 70-100 [facility] ([facility]) Creatinine For GFR 0.51 mg/dL 0.55-1.30 [facility] ([facility]) Glomerular Filtration Rate Laboratory test result [facility] ([facility]) <content>Units are mL/min/1.73 m2</content>
<content></content>
<content>Chronic Kidney Disease Staging per NKF:</content>
<content></content>
<content>Stage I & II GFR >=60 Normal to Mildly Decreased</content>
<content>Stage III GFR 30- 59 Moderately Decreased</content>
<content>Stage IV GFR 15-29 Severely Decreased</content>
<content>Stage V GFR <15 Very Little GFR Left</content>
<content>ESRD GFR <15 on NEWSPAPER ILLUSTRATOR</content>
<content></content> Sodium Level 143 meq/L 136-145 [facility] ([facility]) Chloride Level 107 meq/L 98-107 [facility] ([facility]) Potassium Serum 3.4 meq/L 3.5-5.1 [facility] ([facility]) Anion Gap 6 meq/L 8-16 [facility] ([place] [facility]) Calcium Level 9.0 mg/dL 8.5-10.1 [facility] ([facility]) Carbon Dioxide Level 30 meq/L 21-32 [facility] ([facility]) ID Date Data Source [id number] 09/16/2020 11:55:00 AM EDT [facility] ([facility]) Name Value Range Interpretation Code Description Data Nadira rce(s) Supporting Document(s) Glucose, Fasting 92 mg/dL 70-100 [facility] ([facility]) Blood Urea Nitrogen 3 mg/dL 7-18 [facility] ([facility]) Creatinine For GFR 0.58 mg/dL 0.55-1.30 [facility] ([facility]) Glomerular Filtration Rate Laboratory test result [facility] ([facility]) <content>Units are mL/min/1.73 m2</content>
<content></content>
<content>Chronic Kidney Disease Staging per NKF:</content>
<content></content>
<content>Stage I & II GFR >=60 Normal to Mildly Decreased</content>
<content>Stage III GFR 30- 59 Moderately Decreased</content>
<content>Stage IV GFR 15-29 Severely Decreased</content>
<content>Stage V GFR <15 Very Little GFR Left</content>
<content>ESRD GFR <15 on NEWSPAPER ILLUSTRATOR</content>
<content></content> Potassium Serum 3.4 meq/L 3.5-5.1 [facility] ([facility]) Sodium Level 140 meq/L 136-145 [facility] ([facility]) Carbon Dioxide Level 30 meq/L 21-32 [facility] ([facility]) Chloride Level 107 meq/L 98-107 [facility] ([facility]) Calcium Level 9.0 mg/dL 8.5-10.1 [facility] ([facility]) Anion Gap 3 meq/L 8-16 [facility] ([place] [facility]) ID Date Data Source [id number] 09/14/2020 01:00:00 PM EDT [facility] Name Value Range Interpretation Code Description Data Nadira rce(s) Supporting Document(s) Follow Up [facility] VOPONh0nAgIQBjBcDXZhXolFWEjwOJeaYNLuY3C2NHuwAg1VOHksonTmFYKgAv7+TJFfDQ4jfq2qFUEg gMy [file] Center Line+LDJ/z0L3WiTSXQ0aFu4iGSuHG8p/btkzc1LYDidxMn97grjSQn60SSR8y8uv0r81fl5GzOSFGxE0 [file] Q3jh4ACXxXL7L64JwlYLkYZROy/74MRq4aCfqFGdGqh/Employee Benefits Manager+llYkJQsUg5fH8vKAUFhclerROaqpaFMTe [file] kpDw8pRL32jedsKsZ742EDbrVNRO+h1VQlJzqBF/a7U1FCaSbnUFWPTC57IEvx+Pickle Sorter+ovz0hO0K8nsUvG [file] table keeper+tD5okJIQQJa3jOnetW1C3fln0yUZw0e+hQTt5H [file] 84sCsfWLlOB5IeASqKCCqX/licensed massage practitioner+1CkjuacNp6Pf2ZI [file] ABRASIVE MIXER HELPER+CceKF+43ABIFAUXNiWcSsRe0PJYPAtRWRW+Htm562cgcJrtOgIOLL0mTiII1mHoPpSMaJ0Hr7jOq Tpohqe955nN9pisgebujVbyFjfEPwEKOSOzaWJBlXdgHX0RhySChop5soMW910EsoRV4EEFKrRL8fCg+ V9U6lA2anx/N0MnoMzMqcEtMSiwh0WdVvU4qhldv16 kQeGT0qFDJSJV+mBuvDIi+nKtWeSnXCuzlGBUMbJ2VxbkBF9xDzl0PN+LAlgrb8sPcAcZRKghZ1APB/H iKUps/uj9hnD0wJs2vmNTtF22lDvn6Od/vHTCo923Iy8sbAynR4YFgZ6TWayI8SqkVrAlKsgDon4YOuo 9yTsrOSR+wWZ+yemaozkmgaSHDyIHyxTI03iqj3umo vT2AmW0UPoXGPTZEgFwuN9FdqAT2oZRyOmW6bIDqZhFUgotIIpLBA1sQlJnHpJh774wjQbM56Z+pjMP2 JANE/FdndjPbxuOq8eq+tuMF0wNnbMIuJqPsbFLi6nwoIuALyCdm9HB1fic1nNMY7HoYWmnmViXv7O0a+ [file] Luis Enrique/2V9zHmYkV/K3eXpAG6LvMYWmG4QNKai49xKSg5UuVwynd8mzECOfpx+8EHH7cjID6SRqcxZMLNNL [file] 8IRO/5aP42dughp3QkJuuh9EnSg1uZhorRQN+l [file] Creative Producer/2pSEIGrJurpobKGUMhzsWicSJ6JcJtCpoprLCooUUqKJfM2qJ/ECBrupDz5ig4ltKj1XNzxvJG4R [file] 5UEmG+tI8pQpkwwuzQTVs9Z6sDkTAceuy9dqMM [file] ehhN0jpaWTtLNt8Axjmge0dJs6kJpIHl5pM3htSU2n+Uxz+EFoQ0UxV2g7xU/zH7H7P/Systems Administration Analyst/3jovL3i+ [file] spring up supervisor+MnmgoybTQ0Dg5V7hpl5A+N7Gv/9LFrHKnUbv5u893RtVOkKT7AdLaY6va5/mvnHPivlT/HKjH8jO [file] senior engineering technician+bWeRAwpDp1ee0jzo6U0PzmRN0aPp16PI95bNCX [file] VKL7pqScpV0EIZ1te7QsZO4Rx8QfbnD2jxEzOZoqVFNrZKK8DIznDQVQYh== ID Date Data Source [id number] 09/14/2020 11:04:42 AM EDT [facility] Name Value Range Interpretation Code Description Data Nadira rce(s) Supporting Document(s) *Follow Up Visit DONA v1 [facility] MCYWTh6vGhYKZeQnr0piUXblMQXxx3XrQFt7DQ3LF7R8jTHiK3VqvAUme7mUQj6YBNvoKZY6a8L7OH0L 5cG [file] GpLkyV747Yjr4KoczPFI4ceKy5/2UEQEtF61AbuPcryzvxaOC6QJ+I+8XR8Pjx5vOgKQxaG0frhj/nighat p9i2u/6+PQx+DlQo8VdbeiFQRLGwGPXaPVWECBRsYU kHNikrsZo0p09HOGvO76PMRCnrOEjrUpysd87E4hN8cljB44a8OB/wYIWsryeB+5HsWQgUdnNOfOZrKA XVScThhCZ4gHEQhpX0TIQYT3CyE+Fb4TOpVekxvNb8gXG2b96ybz8SEJKU0JGVcSMYpRfOoibge/KBxD EjCqDHsb/Cx+Xf1Eqhh1ZjvXFj0evaNwHSb8rn5YJE NeeFf3Ko91oe8BrXDpaGwpZDoMEUuhyykAHYs7exXeORPdkYyyDfK/ksM1i244wgqotREnoD/7X2+rn telehealth [file] 7KSAygBdYkASnwEKJQYv5M ID Date Data Source [id number] 09/11/2020 02:24:00 PM EDT [facility] ([facility]) Name Value Range Interpretation Code Description Data Nadira rce(s) Supporting Document(s) Bacteria identified in Urine by Culture Laboratory test result [facility] ([facility], [facility]) <content>FULL REPORT IN LAB NOTES ([facility] a nd [facility]).</content>
<content></content>
<content>ORGANISM 1: ESCHERICHIA COLI</content>
<content></content>
<content>COLONY COUNT > 100,000</content>
<content></content>
<content></content>
<content>O RGANISM 1: ESCHERICHIA COLI</content>
<content></content>
<content> ESCHERICHIA COLI: REACTION</content>
<content>TRIMETHOPRIM/SULFAMETHOXAZOLE IV 160mg TMP & 800mg SMXq6h <=20 S</content>
<content> TRIMETHOPRIM/SULFAMETHOXAZOLE PO Bactrim DS Bid <=20 S</content>
<content>AMPICILLIN IV 500mg q6h >=32 R</content>
<content>AMPICILLIN PO 500mg q6h fasting >=32 R</content>
<content>GENTAMICIN IV 80mg q8h <=1 S</content>
<content>NITROFURANTOIN PO 100mg BID <=16 S</content>
<content>CEFAZOLIN IV 1gm q8h >=64 R</content>
<content>LEVOFLOXACIN IV 500mg qd <=0.12 S</content>
<content>LEVOFLOXACIN PO 250mg qd <=0.12 S</content>
<content>LEVOFLOXACIN PO 500mg qd <=0.12 S</content>
<content>TOBRAMYCIN IV 80mg q8h <=1 S</content>
<content>CEFTRIAXONE IV 1gm q24h 16 I</content>
<content>CEFTAZIDIME IV 1gm q8h 16 I</content>
<content>AMPICILLIN/SULBACTAM IV 1.5g q6h >=32 R</content>
<content>PIPERACILLIN/TAZOBACTAM IV 2.25 gm q6h <=4 S</content>
<content>AZTREONAM IV 1gm q8h 16 I</content>
<content>ERTAPENEM IV 1gm qd <=0.5 S</content>
<content>MEROPENEM IV 1 gm q8h <=0.25 S</content>
<content>MEROPENEM IV 500 mg q8h <=0.25 S</content>
<content>TIGECYCLINE IV 50mg q12h <=0.5 S</content>
<content>CEFEPIME IV 1 gm q12h <=1 S</content>
<content>CEFEPIME IV 2 gm q12h <=1 S</content>
<content>EXTD BRD SPCTRM BETA LACTAMASE IV NEGATIVE FOR ESBL</content>
<content></content> ID Date Data Source [id number] 09/07/2020 06:26:54 PM EDT [facility] [place] [facility] SPECIMEN DESCRIPTION THROAT SWABC ULTURE RESULTS NORMAL THROAT ROHINI NEGATIVE FOR BETA HEMOLYTIC STREPTOCOCCI GROUPS A,C OR G.REPORT STATUS FINAL 09/08/2020 SPECIMEN DESCRIPTION STOOLSPECIAL REQUESTS NONERESULT NEGATIVE FOR ENTERIC PATHOGENS BY PCR.NOTE: THIS MOLECULAR ASSAY DETECTS THE FOLLOWING ENTERIC PATHOGENS:CAMPYLOBACTER GROUP (COLI, JEJUNI, PAUL), SALMONELLA SPECIES,SHIGELLA SPECIES (DYSENTERIAE, BOYDII, SONNEI, FLEXNERI), VIBRIOGROUP (CHOLERAE, PARAHAEMOLYTICUS), YERSINIA ENTEROCOLITICA, SHIGATOXIN 1, SHIGA TOXIN 2, NOROVIRUS GROUP 1 AND 2, ROTAVIRUS A. REPORT STATUS FINAL 09/08/2020 Name Value Range Interpretation Code Description Data Nadira rce(s) Supporting Document(s) SPECIMEN DESCRIPTION [facility]ator [facility] [place] [facility] C DIFF TOXIN B (NEG) [facility] [place] [facility] 027 NAP1 B1 (NEG) [facility] COMMENT [facility] [place] of [facility] IS CLINICALLY INDICATED, PLEASE CONTA CT THE MICROBIOLOGY LABORATORY ([phone]) WITHIN 3 DAYS OF THIS REPORT. ID Date Data Source [id number] 09/08/2020 12:28:47 PM EDT [facility] [place] [facility] [facility] SPECIMEN DESCRIPTION THROAT SWABC ULTURE RESULTS NORMAL THROAT ROHINI NEGATIVE FOR BETA HEMOLYTIC STREPTOCOCCI GROUPS A,C OR G.REPORT STATUS FINAL 09/08/2020 SPECIMEN DESCRIPTION STOOLSPECIAL REQUESTS NONERESULT NEGATIVE FOR ENTERIC PATHOGENS BY PCR.NOTE: THIS MOLECULAR ASSAY DETECTS THE FOLLOWING ENTERIC PATHOGENS:CAMPYLOBACTER GROUP (COLI, JEJUNI, PAUL), SALMONELLA SPECIES,SHIGELLA SPECIES (DYSENTERIAE, BOYDII, SONNEI, FLEXNERI), VIBRIOGROUP (CHOLERAE, PARAHAEMOLYTICUS), YERSINIA ENTEROCOLITICA, SHIGATOXIN 1, SHIGA TOXIN 2, NOROVIRUS GROUP 1 AND 2, ROTAVIRUS A. REPORT STATUS FINAL 09/08/2020 Name Value Range Interpretation Code Description Data Nadira rce(s) Supporting Document(s) ID Date Data Source [id number] 09/08/2020 02:34:43 PM EDT [facility] [place] [facility] SPECIMEN DESCRIPTION THROAT SWABC ULTURE RESULTS NORMAL THROAT ROHINI NEGATIVE FOR BETA HEMOLYTIC STREPTOCOCCI GROUPS A,C OR G.REPORT STATUS FINAL 09/08/2020 SPECIMEN DESCRIPTION STOOLSPECIAL REQUESTS NONERESULT NEGATIVE FOR ENTERIC PATHOGENS BY PCR.NOTE: THIS MOLECULAR ASSAY DETECTS THE FOLLOWING ENTERIC PATHOGENS:CAMPYLOBACTER GROUP (COLI, JEJUNI, PAUL), SALMONELLA SPECIES,SHIGELLA SPECIES (DYSENTERIAE, BOYDII, SONNEI, FLEXNERI), VIBRIOGROUP (CHOLERAE, PARAHAEMOLYTICUS), YERSINIA ENTEROCOLITICA, SHIGATOXIN 1, SHIGA TOXIN 2, NOROVIRUS GROUP 1 AND 2, ROTAVIRUS A. REPORT STATUS FINAL 09/08/2020 Name Value Range Interpretation Code Description Data Nadira rce(s) Supporting Document(s) ID Date Data Source [id number] 09/10/2020 07:15:30 PM EDT [facility] [place] [facility] SPECIMEN DESCRIPTION THROAT SWABC ULTURE RESULTS NORMAL THROAT ROHINI NEGATIVE FOR BETA HEMOLYTIC STREPTOCOCCI GROUPS A,C OR G.REPORT STATUS FINAL 09/08/2020 SPECIMEN DESCRIPTION STOOLSPECIAL REQUESTS NONERESULT NEGATIVE FOR ENTERIC PATHOGENS BY PCR.NOTE: THIS MOLECULAR ASSAY DETECTS THE FOLLOWING ENTERIC PATHOGENS:CAMPYLOBACTER GROUP (COLI, JEJUNI, PAUL), SALMONELLA SPECIES,SHIGELLA SPECIES (DYSENTERIAE, BOYDII, SONNEI, FLEXNERI), VIBRIOGROUP (CHOLERAE, PARAHAEMOLYTICUS), YERSINIA ENTEROCOLITICA, SHIGATOXIN 1, SHIGA TOXIN 2, NOROVIRUS GROUP 1 AND 2, ROTAVIRUS A. REPORT STATUS FINAL 09/08/2020 Name Value Range Interpretation Code Description Data Nadira rce(s) Supporting Document(s) CRYPTOSPORIDIUM AG [facility] [place] [facility] NegativeReference range: Negative Perfor med By: [address] [address] Portable Track Line Marker: Naa Pisano MD GIARDIA ANTIGEN [facility] NegativeReference range: Negative Perfor med By: [facility] [employer] [address] [place] [address] Portable Track Line Marker: Naa Pisano MD ID Date Data Source [id number] 08/20/2020 01:24:03 PM EDT [facility] Name Value Range Interpretation Code Description Data Nadira rce(s) Supporting Document(s) *Follow Up Visit DONA v1 [facility] SFEOAw7wFhMOWkUwu2cjAPjhNHSbd6SnHQw4DK8UZ5PfK3IDKYtnoJAbS45qZWIjhHGifq4RL5YlS0Et KL0 [file] BmKNKPJl0TebLjURS8DIWiYa2CBv0QIk6Mb3AbsjX9qiYrQUamCcM7GyWJHyJjPB5CXLk= ID Date Data Source [id number] 08/23/2020 11:48:00 AM EDT [facility] C[facility] SPECIMEN DESCRIPTION PERIPHERAL RIGHT ARMSPECIAL REQUESTS NONECULTURE RESULTS NO GROWTH 5 DAYSREPORT STATUS FINAL 08/23/2020 Name Value Range Interpretation Code Description Data Nadira rce(s) Supporting Document(s) ID Date Data Source [id number] 08/23/2020 11:48:00 AM EDT [facility] SPECIMEN DESCRIPTION PERIPHERAL LEFT ARMSPECIAL REQUESTS NONECULTURE RESULTS NO GROWTH 5 DAYSREPORT STATUS FINAL 08/23/2020 Name Value Range Interpretation Code Description Data Nadira rce(s) Supporting Document(s) ID Date Data Source [id number] 08/20/2020 10:48:50 PM EDT [facility] [place] [facility] SPECIMEN DESCRIPTION STOOLSPECIAL REQUESTS NONERESULT NEGATIVE FOR ENTERIC PATHOGENS BY PCR.NOTE: THIS MOLECULAR ASSAY DETECTS THE FOLLOWING ENTERIC PATHOGENS:CAMPYLOBACTER GROUP (COLI, JEJUNI, PAUL), SALMONELLA SPECIES,SHIGELLA SPECIES (DYSENTERIAE, BOYDII, SONNEI, FLEXNERI), VIBRIOGROUP (CHOLERAE, PARAHAEMOLYTICUS), YERSINIA ENTEROCOLITICA, SHIGATOXIN 1, SHIGA TOXIN 2, NOROVIRUS GROUP 1 AND 2, ROTAVIRUS A. REPORT STATUS FINAL 08/21/2020 Name Value Range Interpretation Code Description Data Nadira rce(s) Supporting Document(s) SPECIMEN DESCRIPTION [facility] [place] [facility] C DIFF TOXIN B (NEG) [facility] [place] [facility] 027 NAP1 B1 (NEG) Laboratory [facility] COMMENT [facility] [place] of [facility] IS CLINICALLY INDICATED, PLEASE CONTA CT THE MICROBIOLOGY LABORATORY ([phone]) WITHIN 3 DAYS OF THIS REPORT. ID Date Data Source [id number] 08/21/2020 12:18:16 PM EDT [facility] [place] [facility] SPECIMEN DESCRIPTION STOOLSPECIAL REQUESTS NONERESULT NEGATIVE FOR ENTERIC PATHOGENS BY PCR.NOTE: THIS MOLECULAR ASSAY DETECTS THE FOLLOWING ENTERIC PATHOGENS:CAMPYLOBACTER GROUP (COLI, JEJUNI, PAUL), SALMONELLA SPECIES,SHIGELLA SPECIES (DYSENTERIAE, BOYDII, SONNEI, FLEXNERI), VIBRIOGROUP (CHOLERAE, PARAHAEMOLYTICUS), YERSINIA ENTEROCOLITICA, SHIGATOXIN 1, SHIGA TOXIN 2, NOROVIRUS GROUP 1 AND 2, ROTAVIRUS A. REPORT STATUS FINAL 08/21/2020 Name Value Range Interpretation Code Description Data Nadira rce(s) Supporting Document(s) ID Date Data Source [id number] 08/20/2020 11:00:16 AM EDT [facility] [place] [facility] SPECIMEN DESCRIPTION MIDSTREAM UR INE,CLEAN CATCHCULTURE RESULTS >100,000 CFU/ML ESCHERICHIA COLI ESBL POSITIVE BY CONFIRMATORY METHOD >100,000 CFU/ML KLEBSIELLA PNEUMONIAE IMPORTANT NOTE FOR COMPLICATED INFECTIONS SUCH UROSEPSIS CEFAZOLIN SHOULD HAVE A KENIA OF LESS THAN OR EQUAL TO 2 TO BE CONSIDERED SUSCEPTIBLE. CONTACT MICROBIOLOGY FOR FURTHER TESTING IF WARRANTED.RESULT(S) CALLED TO AND READ BACK BY RACHEL AT 1057 AND FAXED RESULT [id number] [place] [id number] [place] [id number]. REPORT STATUS FINAL 08/20/2020ORGANISM ESCHERICHIA COLI ESBL POSITIVE BY CONFIRMATORY METHODMETHOD MICAMIKACIN <=2 SUSCEPTIBLEAMOXICILLIN/CLAVULANIC AC >=32/16 RESISTANTAMPICILLIN >=32 RESISTANT ISOLATES SUSCEPTIBLE TO AMPICILLIN ARE ALSO SUSCEPTIBLE TO AMOXICILLIN.CEFAZOLIN >=64 RESISTANT FOR UNCOMPLICATED UTI'S,CEFAZOLIN KENIA RESULTS LESS THAN OR EQUAL TO 16 MCG/ML PREDICT SUSCEPTIBILITY OF THE FOLLOWING ORAL CEPHALOSPORINS:CEFACLOR,CEFDINIR, CEFPODOXIME,CEFPROZIL,CEFUROXIME AND CEPHALEXIN.CEFEPIME RESISTANTCEFOXITIN >=64 RESISTANTCEFTAZIDIME 16 RESISTANTCEFTRIAXONE 16 RESISTANTCIPROFLOXACIN <=0.25 SUSCEPTIBLEGENTAMICIN <=1 SUSCEPTIBLELEVOFLOXACIN <=0.12 SUSCEPTIBLEMEROPENEM <=0.25 SUSCEPTIBLENITROFURANTOIN <=16 SUSCEPTIBLEPIPERACILLIN/TAZOBACTAM <=4 SUSCEPTIBLETETRACYCLINE <=1 SUSCEPTIBLE ISOLATES SUSCEPTIBLE TO TETRACYCLINE ARE ALSO SUSCEPTIBLE TO DOXYCYCLINE AND MINOCYCLINE.TOBRAMYCIN <=1 SUSCEPTIBLETRIMETH/SULFA <=1/19 SUSCEPTIBLEERTAPENEM <=0.5 SUSCEPTIBLEORGANISM KLEBSIELLA PNEUMONIAEMETHOD MICAMIKACIN <=2 SUSCEPTIBLEAMOXICILLIN/CLAVULANIC AC <=2/1 SUSCEPTIBLEAMPICILLIN >=32 RESISTANT ISOLATES SUSCEPTIBLE TO AMPICILLIN ARE ALSO SUSCEPTIBLE TO AMOXICILLIN.CEFAZOLIN <=4 SUSCEPTIBLE FOR UNCOMPLICATED UTI'S,CEFAZOLIN KENIA RESULTS LESS THAN OR EQUAL TO 16 MCG/ML PREDICT SUSCEPTIBILITY OF THE FOLLOWING ORAL CEPHALOSPORINS:CEFACLOR,CEFDINIR, CEFPODOXIME,CEFPROZIL,CEFUROXIME AND CEPHALEXIN.CEFEPIME <=1 SUSCEPTIBLECEFOXITIN <=4 SUSCEPTIBLECEFTAZIDIME <=1 SUSCEPTIBLECEFTRIAXONE <=1 SUSCEPTIBLECIPROFLOXACIN <=0.25 SUSCEPTIBLEGENTAMICIN <=1 SUSCEPTIBLELEVOFLOXACIN <=0.12 SUSCEPTIBLEMEROPENEM <=0.25 SUSCEPTIBLENITROFURANTOIN 64 INTERMEDIATEPIPERACILLIN/TAZOBACTAM <=4 SUSCEPTIBLETETRACYCLINE <=1 SUSCEPTIBLE ISOLATES SUSCEPTIBLE TO TETRACYCLINE ARE ALSO SUSCEPTIBLE TO DOXYCYCLINE AND MINOCYCLINE.TOBRAMYCIN <=1 SUSCEPTIBLETRIMETH/SULFA <=/ SUSCEPTIBLEERTAPENEM <=0.5 SUSCEPTIBLE Name Value Range Interpretation Code Description Data Nadira rce(s) Supporting Document(s) ID Date Data Source [id number] 08/16/2020 02:35:00 PM EDT [facility] ([facility]) Name Value Range Interpretation Code Description Data Nadira rce(s) Supporting Document(s) Laboratory test finding (navigational concept) 102 mg/dL 70-105 [facility] Laboratory test finding (navigational concept) 42.0 % 38.0-51.0 [facility] ([facility] Laboratory test finding (navigational concept) 3.6 meq/L 3.5-5.1 [facility] ([facility] Laboratory test finding (navigational concept) 137 meq/L 136-145 [facility] ([facility]) Laboratory test finding (navigational concept) 4.4 mg/dL 4.5-5.3 [facility] ([facility]) Laboratory test finding (navigational concept) 35.0 MM/L 23.0-27.0 [facility] ([facility]) Laboratory test finding (navigational concept) 96 meq/L 98-109 [facility] ([facility]) Laboratory test finding (navigational concept) 0.8 mg/dL 0.6-1.3 [facility] ([facility]) Laboratory test finding (navigational concept) 8 mg/dL 8-26 [facility] ([facility]) ID Date Data Source [id number] 08/16/2020 02:19:00 PM EDT [facility] Name Value Range Interpretation Code Description Data Nadira rce(s) Supporting Document(s) Magnesium [Moles/volume] in Serum or Plasma 2.2 mg/dL 1.8-2.4 [facility] ([facility]) Lipoprotein lipase [Enzymatic activity/volume] in Serum or Plasm a 48 U/L 73-393 [facility] ([facility]) ID Date Data Source [id number] 08/16/2020 02:19:00 PM EDT [facility] ([facility]) Name Value Range Interpretation Code Description Data Nadira rce(s) Supporting Document(s) Ast/Sgot 32 U/L 7-37 [facility] ([facility]) Alt/SGPT 18 U/L 12-78 [facility] ([facility]) Alkaline Phosphatase 142 U/L 45-117 [facility] ([facility]) Bilirubin,Total 0.9 mg/dL 0.2-1.0 [facility] ([facility]) Bilirubin,Direct 0.3 mg/dL 0.0-0.2 [facility] ([facility]) Total Protein 6.2 GM/DL 6.4-8.2 [facility] ([facility]) Albumin 3.1 GM/DL 3.2-5.2 [facility] ([facility]) Albumin/Globulin Ratio 1.0 1.2-2.2 [facility] ([facility]) ID Date Data Source [id number] 08/16/2020 02:19:00 PM EDT [facility] ([facility]) Name Value Range Interpretation Code Description Data Nadira e(s) Supporting Document(s) CPK Creatine Phosphokinase 39 U/L 26-192 [facility] ([facility]) MB/CK Relative Index 2.56 [facility] ([facility]) <content>DIAGNOSIS CRITERIA</content>
<content>MMB ng/ml Relative Index (RI)</content>
<content>NON-AMI < or = 5 N/A</content>
<content>[place] ZONE > 5 < or = 4</content>
<content>AMI > 5 > 4</content>
<content></content> CK-MB Value Mass Laboratory test result [facility] ([facility]) Troponin I Laboratory test result [facility] ([facility]) <content>Troponin I Reference Interval f or Siemens [place] LOCI:</content>
<content></content>
<content>99th Percentile= 0.00-0.045 ng/ml</content>
<content></content>
<content>Risk Stratification:</content>
<content><= 0.10 ng/ml Decreased Risk for Adverse Clinical</content>
<content>Events.</content>
<content>0.10-1.50 ng/ml Increased Risk for Adverse Clinical</content>
<content>Events. Evaluation of additional</content>
<content>criterion and/or repeat testing in 2-6</content>
<content>hours is suggested to rule out myocardial</content>
<content>damage.</content>
<content>>= 1.50 ng/ml Indicative of Myocardial Injury.</content>
<content></content> ID Date Data Source [id number] 08/16/2020 02:19:00 PM EDT [facility] ([facility]) Name Value Range Interpretation Code Description Data Nadira rce(s) Supporting Document(s) White Blood Count 12.8 10 4.0-10.0 [facility] ([facility]) Red Blood Count 4.14 10 4.00-5.40 [facility] ([facility]) Hemoglobin 13.3 g/dL 12.0-15.5 [facility]) Hematocrit 41.7 % 36[facility].0 [facility] Mean Corpuscular Volume 100.7 fl 80.0-96.0 [facility] ([facility]) Mean Corpuscular Hemoglobin 32.1 pg 27.0-33.0 [facility] ([facility]) Mean Corpuscular HGB Conc 31.9 g/dL 32.0-36.5 [facility] NT ([facility]) Red Cell Distribution Width 22.5 % 11.5-14.5 [facility] ([facility]) Platelet Count, Automated 180 10 150-450 [facility] ([facility]) Neutrophils % 74.9 % 36.0-66.0 [facility] ([facility]) Lymph % 10.8 % 24.0-44.0 [facility]) Cascade % 10.2 % 2.0-8.0 [facility] Eos % 0.1 % 0.0-3.0 [facility]) Baso % 0.6 % 0.0-1.0 [facility] Immature Granulocyte % 3.4 % 0-3.0 [facility] ([facility]) Nucleated Red Blood Cell % 0.2 % 0-0 [facility] ([facility]) Neutrophils # 9.6 10 1.5-8.5 [facility] ([facility]) Lymph # 1.4 10 1.5-5.0 [facility]) Cascade # 1.3 10 0.0-0.8 [facility] Eos # 0.0 10 0.0-0.5 [facility] Baso # 0.1 10 0.0-0.2 [facility] ID Date Data Source [id number] 08/13/2020 11:05:00 AM EDT [facility] ([facility]) Name Value Range Interpretation Code Description Data Nadira rce(s) Supporting Document(s) Thyroxine (T4) free [Mass/volume] in Serum or Plasma 1.73 ng/dL 0.76- 1.46 [facility] ([facility]) ID Date Data Source [id number] 08/13/2020 11:05:00 AM EDT [facility] ([facility]) Name Value Range Interpretation Code Description Data Nadira rce(s) Supporting Document(s) Thyrotropin [Units/volume] in Serum or Plasma by Detec tion limit <= 0.05 mIU/L 11.55 uIU/mL 0.36-3.74 [facility] ([facility] ) ID Date Data Source [id number] 08/13/2020 11:05:00 AM EDT [facility] ([facility]) Name Value Range Interpretation Code Description Data Nadira rce(s) Supporting Document(s) Cholesterol in HDL [Mass/volume] in Serum or Plasma 48 mg/dL 35-60 [facility] ([facility]) Cholesterol [Mass/volume] in Serum or Plasma 110 mg/dL 131-200 [facility] ([facility]) Triglyceride [Mass/volume] in Serum or Plasma 92 mg/dL 30-150 [facility] ([facility]) Cholesterol in LDL [Mass/volume] in Serum or Plasma by calcu lation 44 CALC 50-159 [facility] ([facility]) ID Date Data Source [id number] 08/04/2020 10:24:51 PM EDT [facility] [place] [facility] SPECIMEN DESCRIPTION STOOLSPECIAL REQUESTS NONERESULT NEGATIVE FOR ENTERIC PATHOGENS BY PCR.NOTE: THIS MOLECULAR ASSAY DETECTS THE FOLLOWING ENTERIC PATHOGENS:CAMPYLOBACTER GROUP (COLI, JEJUNI, PAUL), SALMONELLA SPECIES,SHIGELLA SPECIES (DYSENTERIAE, BOYDII, SONNEI, FLEXNERI), VIBRIOGROUP (CHOLERAE, PARAHAEMOLYTICUS), YERSINIA ENTEROCOLITICA, SHIGATOXIN 1, SHIGA TOXIN 2, NOROVIRUS GROUP 1 AND 2, ROTAVIRUS A. REPORT STATUS FINAL 08/05/2020 Name Value Range Interpretation Code Description Data Nadira rce(s) Supporting Document(s) SPECIMEN DESCRIPTION [facility] [place] [facility] C DIFF TOXIN B (NEG) Laboratory [place] [facility] 027 NAP1 B1 (NEG) [facility] [place] [facility] COMMENT Laboratory [place] [facility] IS CLINICALLY INDICATED, PLEASE CONTA CT THE MICROBIOLOGY LABORATORY ([phone]) WITHIN 3 DAYS OF THIS REPORT. ID Date Data Source [id number] 08/05/2020 11:06:33 AM EDT [facility] [place] [facility] SPECIMEN DESCRIPTION STOOLSPECIAL REQUESTS NONERESULT NEGATIVE FOR ENTERIC PATHOGENS BY PCR.NOTE: THIS MOLECULAR ASSAY DETECTS THE FOLLOWING ENTERIC PATHOGENS:CAMPYLOBACTER GROUP (COLI, JEJUNI, PAUL), SALMONELLA SPECIES,SHIGELLA SPECIES (DYSENTERIAE, BOYDII, SONNEI, FLEXNERI), VIBRIOGROUP (CHOLERAE, PARAHAEMOLYTICUS), YERSINIA ENTEROCOLITICA, SHIGATOXIN 1, SHIGA TOXIN 2, NOROVIRUS GROUP 1 AND 2, ROTAVIRUS A. REPORT STATUS FINAL 08/05/2020 Name Value Range Interpretation Code Description Data Nadira rce(s) Supporting Document(s) ID Date Data Source [id number] 07/26/2020 06:23:23 PM EDT [facility] [place] [facility] Name Value Range Interpretation Code Description Data Nadira rce(s) Supporting Document(s) SPECIMEN DESCRIPTION [facility] [place] [facility] C DIFF TOXIN B (NEG) [facility] [place] [facility] 027 NAP1 B1 (NEG) [facility] [place] [facility] COMMENT [facility] [place] [facility] IS CLINICALLY INDICATED, PLEASE CONTA CT THE MICROBIOLOGY LABORATORY ([phone]) WITHIN 3 DAYS OF THIS REPORT. ID Date Data Source [id number] 07/23/2020 08:27:12 AM EDT [facility] Name Value Range Interpretation Code Description Data Nadira rce(s) Supporting Document(s) *Follow Up Visit DONA v1 [facility] PTOLEc9dWpDNUlFvk3spDSyvLIVni8IgRUu9MS7LT8EaH6WbVJUfBZMDJKoiFDkxNTHmT1P6UHdaZv0V uZG [file] DOQjHy9BH7uoEe7iHGpkDBSUOQt+Eq4PZMgwqCGefYzcZNGZJdC5GwX5OL7UAWTPP9HWDw== ID Date Data Source [id number] 07/22/2020 12:45:00 PM EDT [facility] Name Value Range Interpretation Code Description Data Nadira rce(s) Supporting Document(s) First Visit [facility] TBYULh3hSjGDPqQrIFFfSabNLIbmTNudQQIhY8T8UNurXv4QIElcjdBzWOSkYt0+NVVgKN4phy9sPTGi gMy 4xBNDdFwaxK8FaIMYzb45NCQZzBGmQWaEtVaFfDYEuFVQ8JFBgPFN6QrOnHmgpRR0wTDD7CQUdOIepIR AeQTAhNxXzYRW1Pf8cXCtbIUqlVi2OOL0zm8OfTYHtDTDgCmiOOWkyRQawDMVcWLNvTGIqT162mhMqCE 3IaJEjIPr9KBYzPkN8GFMwUlN4RWWnSvAdJaLbVHXf V5Wqh843xjLiwbL0TM2RB4CbIJW1XKg5W8ywHhRhDWXiHDQhPR9sGaM8BYBkQq8XsUskNFPiXYFxXe8M uUu8FFR5ZTYxSe7+Pj4+Eg6gffLvYakSRGClNV7evk75JD6TfRJnZT5MYNtsH76kZFhcXq36HUgoFUPv SjEgOMu3Ne1gHgQof1CrN7PlGXn9Y8hYIarhU4HcEO umHI3pNKC4BEIeAe6+Uv2oBEWtQS32ZUHoFESGS6TnhdSnoiFuIBc0CZGaAm1+Gl1fmcHiQopGFYHoLJ 0fmx25XB9FCM3paWwfFWB5QLpdF78fsBUpN3xtMrExJ7ViuCkxJXHiQY7yM8ByHNcjDYOmGC6oamLzmK 6NxGt6UUOrCv4WkLF1HHOuI32wLUCzJMBDXJOey7As UK8We9uybbGxIRUaCH6DZMWkA2TQN3NcS0ocgQkvLQAsYE8KWIbfnCSsGIj1IB2WkOOfKSYtI96mhQ8f UX86MHn+TtD3dcMdqP7SeBsgp7FFWV872ff6fjV6EVBiSpePME576pGUGDSORCjS9k2kgQS1rkF4i4AE r1Mn2U2ZHh70uj+imqpWPCnu69xzhfl42qbCYuykqu /85xo2TF2kBQBNmzSclXBkdoGaIF1//ydrxnQWTehVq5YArUAPanuooniHqhpHhGcXuPIXsWiBZItWl2 dPQECAnkVUUuSNBDe/wJt/GkF5/ic1Ir5hMO1qpNtZYD/f/C+Cre5F4ORnWys9FFETVUikHxlnzwA/gB 4AQMFA+VcB/X5PGIXKZUMY12eadLo/IPmuGUVA4XAD [file] [place]//K5nJm5umjxAEcMlSv+zb9mgvURtuTNYg2x4sM [file] 0OHhQjM+Employee Benefits Manager/3ZWN6uj45iXr2fcok/B1vSxcG/6ZMml [file] 9k3H4/eNjo2I35qZrbsqMGSZ7b2C6POg++NSdj [file] newspaper delivery counselor/r+A5IXdyQ1upmQNK/tQZ0YfhtGYNUIv5f/oHQA28iYUD1WJ6ot/dDl4s4Nw/qgpPn5GjhGUfuG81 [file] CAROL [file] steward+/ [file] 1pqPfdBL2qYNi/Pickle Sorter+lbYl/kRTbrsi8LH1uwWMXeGEiEHn4+oY3N74JMQl7mWs1quFxkxwqn0GOrK12Cl [file] snack foods mixer operator+qkv+u8D6N42CL5qi09mLo+Y5FjM3IIlRqtT0HbrSSQYI84tXW0K0EQhORlPcD0j7LtVEtyc27A5m [file] injection molding engineer+NiVePQXLF3d7nBjOAZNxuwAz2RgnbKqWahN3I5 [file] p+nOr6usfvjOsBNU5CG8ZJoN8DkX4SD9bnObX0DVzLAv9Z8vxWaVq2G5E5CB9cVOW6QMKrek8yhHh+Employee Benefits Manager 49bQ9OD7tke7DLtcuf/c6Ox+3tWI4GFcMNhCGwcYVW zBft/8aB6WMECh6A8brXL42kDEQkMVeaVsTYxzG9o4LsKBbEN7OIO2lbsUHTfrYlYcBy5Ub3oUWkSMP8 Felicit[place]+iwK3ZuTWMnAyp/CCUzeYYC9JPHPhX/Wa3PSR0hCW8ya4MbJDcZaJyH8M+99vmMFqZKHLOBd93ZPz /8/CNRknQIH5YUeboFDkvE7wEAo4sQOWXzETFP7aXI G8xDZBEviKF6yE3Ausd64+ch57DXa7x8fU9E6ed65rJxG3ViI9PPyyhwFWerLsaSmqD6r6JQID0brvnq M7xxig3wLRuW+3I45M8rTkGJ31NjrMhYGirNSJp4W40QONI6+Po/dVjEP5E9kTzblZFmvvnhHDap0iyz zFLQnqXHF8yjQuqCU01N1uwFEUhI42ltooqAmrfquM VpCgaG3uJbj2OjqeL9dm4TUKPSC7deB2n8IEtFP2PCDc1m0e0inCkwwI+kSQ5LwmKZxmiBE9juMNezvZ ARaVbdD2qkoM7tHrjWteyc0I3OB5B6O2vkRt8TB9JgR028DwM6ZF2NzILDygTzG9wOfvIXZjj8kGu1Y/ bU/9y2birdJWF4Fe4Al/U2MXSa1djwfJ+lwvQ3xuc4 jZcc4u8yzKdFpiJyWl8QCmxPuZY+70HHEu3HBiuw9ud1K/joKpI2Y1O0Z3xHBwvsIPPotNknpBJ4Y5J3 U3l/DrMzt1nd9Wxce/za1muREgpd8Jk0C76sBaHFaM+CSywEOmNQHhq7y1O+40G325ZiHhkKH8kFI64e vsarTXpzssGwFVDiMYHaxr1cnzC+Mlx/s7PupTISOt Ogg77GsFhGAV5CqfCOftYnPQ6+JseagkuX/1RUCTH/HxYKApub15KdWuFzcHyQOnKKa7own5mSYg5ijk i2Xjn0QaseY+LpZjfctHvpLxX7dbWfp63NG8m++dB1WkqpKgRxGyEoR1EfpZ0tnUyhwSIKAHzN7jKGHO ppYVPavxlCAMzFXUHgptdTVSShrbRJ+vQluzYimyx+ [file] dispatcher relay/xsNr8mTPbRS211KARTritjOCwBS7oZeIlrtUAiq3ehCzIM28MpHlr7IyTx2ksc0JROTL1aKxBupd [file] patient [file] towboat captain/5NM1L6dtKD4ZpcEB4b578DiPTx70d1zbnND6Bb4e1nqb+qb1hOi8jELDEFCsYtECtJRIVW5AoTb0 [file] GOvFSDIpkYKf5NGZ7jg3LrTBRbNGktrmChFbtXDPzeeFBojPzjCXTPSkHyBVq2ZzyIUhMuQN1H ID Date Data Source [id number] 06/30/2020 03:33:00 PM EDT [facility] ([facility]) Name Value Range Interpretation Code Description Data Nadira rce(s) Supporting Document(s) Bacteria identified in Urine by Culture Laboratory test result [facility]) Rx Nitrofurantion ID Date Data Source [id number] 06/18/2020 10:28:38 AM EDT [facility] Name Value Range Interpretation Code Description Data Nadira rce(s) Supporting Document(s) *Follow Up Visit DONA v1 [facility] CDETOa8mHiRJLkFpa5amCYfzTECrw9QoWZt0HF7JU5BuINzoliVbZQQyckZkI5JmLVXvTIYSRMjdSSQl 5cG [file] aVx/GAS ROLLER OPERATOR/U6BKR/MXUw1UFClVMngO5Aq43ZIlFSrLfbdCQW1DWAHLSd0R4+q3ztMABs8cVcPNAk0AF5MFt [file] AuI0oPU6cufN3DwRjhT2T4juhgZPyx9yg/lsUNxeZn0LUZb7CQklmcAn5/+Delmar/OZvhjGjZFgOfSGI/N j2PgqityJD/nJixKwmz6H+8KvNkXdpAp06Qmp2RsI+ N2u6x/nSikmA5zA56R00k7hayBzbPHPUjA36ME3S//NHwk67dmissNTEJmP2N1Zj8eHWZi8YDRn2/ne5 hSJWd3PTQ/0uCkoPL6neohs2GtpbgMiF2b274+yWgabSoaF3tV/YYyj8PbKNM9WO7nLX03MhBXpRNyLN signal technician+ycl81mjdSnp9vCPjKeqkx1V6cPLyQW1bkgN/kPs [file] NyAwIFINCj4+AInGKvD3SIO2uRRpOl6LGQU8NNN0QImnQPPTIm4W ID Date Data Source [id number] 06/09/2020 11:15:00 AM EST [facility] ([facility]) Name Value Range Interpretation Code Description Data Nadira rce(s) Supporting Document(s) Reflex Urine Culture Laboratory test result [facility] ([facility]) <content>FULL REPORT IN LAB NOTES (eCW a nd [facility]).</content>
<content></content>
<content>ORGANISM 1: ESCHERICHIA COLI</content>
<content></content>
<content>COLONY COUNT 30,000</content>
<content></content>
<content></content>
<content>OR GANISM 1: ESCHERICHIA COLI</content>
<content></content>
<content> ESCHERICHIA COLI: REACTION</content>
<content>TRIMETHOPRIM/SULFAMETHOXAZOLE IV 160mg TMP & 800mg SMXq6h <=20 S</content>
<content> TRIMETHOPRIM/SULFAMETHOXAZOLE PO Bactrim DS Bid <=20 S</content>
<content>AMPICILLIN IV 500mg q6h >=32 R</content>
<content>AMPICILLIN PO 500mg q6h fasting >=32 R</content>
<content>GENTAMICIN IV 80mg q8h <=1 S</content>
<content>NITROFURANTOIN PO 100mg BID <=16 S</content>
<content>CEFAZOLIN IV 1gm q8h >=64 R</content>
<content>LEVOFLOXACIN IV 500mg qd <=0.12 S</content>
<content>LEVOFLOXACIN PO 250mg qd <=0.12 S</content>
<content>LEVOFLOXACIN PO 500mg qd <=0.12 S</content>
<content>TOBRAMYCIN IV 80mg q8h <=1 S</content>
<content>CEFTRIAXONE IV 1gm q24h 16 I</content>
<content>CEFTAZIDIME IV 1gm q8h 16 I</content>
<content>AMPICILLIN/SULBACTAM IV 1.5g q6h >=32 R</content>
<content>PIPERACILLIN/TAZOBACTAM IV 2.25 gm q6h <=4 S</content>
<content>AZTREONAM IV 1gm q8h 16 I</content>
<content>ERTAPENEM IV 1gm qd <=0.5 S</content>
<content>MEROPENEM IV 1 gm q8h <=0.25 S</content>
<content>MEROPENEM IV 500 mg q8h <=0.25 S</content>
<content>TIGECYCLINE IV 50mg q12h <=0.5 S</content>
<content>CEFEPIME IV 1 gm q12h <=1 S</content>
<content>CEFEPIME IV 2 gm q12h <=1 S</content>
<content>EXTD BRD SPCTRM BETA LACTAMASE IV NEGATIVE FOR ESBL</content>
<content></content> ID Date Data Source [id number] 06/09/2020 11:15:00 AM EST [facility] Name Value Range Interpretation Code Description Data Nadira rce(s) Supporting Document(s) Appearance, Urine RFX Laboratory test result [facility] ([facility]) Color, Urine RFX Laboratory [facility] Specific [place] Ur Auto RFX 1.000 1.002-1.035 [facility]) PH,Urine RFX 7.0 units 5.0-9.0 [facility] Protein, Urine Auto RFX Laboratory test [facility] Glucose, Urine (Ua) Auto RFX Laboratory test result [facility]) Urobilinogen, Urine Auto RFX 0.2 mg/dL 0.0-2.0 [facility] ([facility]) Ketone, Urine Auto RFX Laboratory test result [facility] ([facility]) Bilirubin, Urine Auto RFX Laboratory test result [facility] ([facility]) Leukocyte Esterase Ur Auto RFX Laboratory test result [facility] ([facility]) Nitrite, Urine Auto RFX Laboratory test result [facility] ([facility]) WBC, Urine Auto RFX 0 /HPF 0-3 [facility] ([facility]) Blood, Urine Blood RFX Laboratory test result [facility] ([facility]) RBC, Urine Auto RFX 0 /HPF 0-3 [facility] ([facility]) Bacteria, Urine Auto RFX Laboratory test result [facility] ([facility]) Squam Epithelial Cell Ur Aurfx 0 /HPF 0-6 [facility] Hyaline Cast, Urine Auto RFX 0 /LPF 0-1 M [facility] ([facility]) ID Date Data Source [id number] 06/09/2020 10:34:00 AM EST [facility] ([facility]) Name Value Range Interpretation Code Description Data Nadira rce(s) Supporting Document(s) Platelets reticulated/100 platelets in Blood by Automated count 4.2 % 0.0-9.59 [facility] ([facility]) ID Date Data Source [id number] 06/09/2020 10:34:00 AM EST [facility] ([facility]) Name Value Range Interpretation Code Description Data Nadira rce(s) Supporting Document(s) White Blood Count 4.5 10 4.0-10.0 [facility]) Hemoglobin 12.3 g/dL 12.0-15.5 [facility]) Hematocrit 38.8 % 36.0-47.0 [facility] Red Blood Count 4.29 10 4.00-5.40 [facility] Mean Corpuscular Hemoglobin 28.7 pg 27.0-33.0 [place] [facility] ([facility]) Mean Corpuscular Volume 90.4 fl 80.0-96.0 [facility] Red Cell Distribution Width 14.0 % 11.5-14.5 [facility] ([facility]) Mean Corpuscular HGB Conc 31.7 g/dL 32.0-36.5 [facility] NT ([facility]) Platelet Count, Automated 94 10 150-450 [facility] ([facility]) Scan Verified machine results PLATELET COUNT LESS THAN 100, AND NEW OCCURANCE OR Neutrophils % 58.2 % 36.0-66.0 [facility] ([facility]) Lymph % 26.1 % 24.0-44.0 [facility] [facility] Eos % 1.3 % 0.0-3.0 [facility] [facility] Cascade % 12.9 % 2.0-8.0 [facility] [facility]) Immature Granulocyte % 0.2 % 0-3.0 [facility] ([facility]) Baso % 1.3 % 0.0-1.0 [facility] ([place] [facility]) Nucleated Red Blood Cell % 0.0 % 0-0 MED ENT ([facility]) Neutrophils # 2.6 10 1.5-8.5 [facility] ([facility]) Cascade # 0.6 10 0.0-0.8 [facility] [facility] Lymph # 1.2 10 1.5-5.0 [facility] [facility]) Eos # 0.1 10 0.0-0.5 [facility] [facility] Baso # 0.1 10 0.0-0.2 [facility] [facility] ID Date Data Source [id number] 06/09/2020 10:34:00 AM EST [facility] ([facility]) Name Value Range Interpretation Code Description Data Nadira rce(s) Supporting Document(s) Magnesium [Moles/volume] in Serum or Plasma 1.5 mg/dL 1.8-2.4 [facility] ([facility]) ID Date Data Source [id number] 06/09/2020 10:34:00 AM EST [facility] ([facility]) Name Value Range Interpretation Code Description Data Nadira rce(s) Supporting Document(s) Glucose, Fasting 87 mg/dL 70-100 [facility] ([facility]) Creatinine For GFR 0.75 mg/dL 0.55-1.30 [facility] ([facility]) Blood Urea Nitrogen 4 mg/dL 7-18 [facility] ([facility]) Glomerular Filtration Rate Laboratory test result [facility] ([facility]) <content>Units are mL/min/1.73 m2</content>
<content></content>
<content>Chronic Kidney Disease Staging per NKF:</content>
<content></content>
<content>Stage I & II GFR >=60 Normal to Mildly Decreased</content>
<content>Stage III GFR 30- 59 Moderately Decreased</content>
<content>Stage IV GFR 15-29 Severely Decreased</content>
<content>Stage V GFR <15 Very Little GFR Left</content>
<content>ESRD GFR <15 on NEWSPAPER ILLUSTRATOR</content>
<content></content> Sodium Level 142 meq/L 136-145 [facility] ([facility]) Potassium Serum 3.8 meq/L 3.5-5.1 [facility] ([facility]) Chloride Level 106 meq/L 98-107 [facility] ([facility]) Anion Gap 5 meq/L 8-16 [facility] ([facility]) Carbon Dioxide Level 31 meq/L 21-32 [facility] Ast/Sgot 21 U/L 7-37 [facility] ([facility]) Calcium Level 9.8 mg/dL 8.5-10.1 [facility] ([facility]) Alt/SGPT 23 U/L 12-78 [facility] ([facility]) Alkaline Phosphatase 93 U/L 45-117 [facility] Bilirubin,Total 0.4 mg/dL 0.2-1.0 [facility] ([facility]) Total Protein 7.0 GM/DL 6.4-8.2 [facility] ([facility]) Albumin 3.8 GM/DL 3.2-5.2 [facility] [facility]) Albumin/Globulin Ratio 1.2 1.2-2.2 [facility] ([facility]) ID Date Data Source [id number] 05/25/2020 07:31:01 AM EST [facility] Name Value Range Interpretation Code Description Data Nadira rce(s) Supporting Document(s) AP - Genetic Counseling v1 Hem atology [facility] AHPVSr8mIlUTOnBct7wbFCqeJIRos7GlFPm2OS1YS5Plby3Ff6KsSJRdOLFCTGdyTIcvSFVoO3E9LHqi QRE [file] f3P+Sv/uusJfrpg/engineer technical staff/82XXR/Z3b3FXyiKcE/oVUksvt9wdEkBkFKUaoYJukVV94J/JuP8AQoJy/0mmp [file] GtgPyqVBPSVyB2OVetYO5IZWXMW3JQPv== ID Date Data Source [id number] 05/24/2020 10:53:00 AM EST [facility] LEG DVT INDICATION: COLON CA RIGHT LO WER LEG PAIN/SWELLING ON TX COMPARISON: None. TECHNIQUE: Duplex imaging with color Doppler and spectral analysis were used to study the deep venous system from the common femoral to the calf. A combination of compressibility and flow augmentation was utilized to assess patency. FINDINGS RIGHT LOWER EXTREMITY: Right common femoral vein: Normal compressibility, flow and augmentation. Right femoral vein: Normal compressibility, flow and augmentation. Right popliteal vein: Normal compressibility, flow and augmentation. Proximal calf veins: Normally compress ible. IMPRESSION: No evidence of deep vein thrombosis in the right lower extremity veins as described. Professional interpretation performed at [facility] . Name Value Range Interpretation Code Description Data Nadira rce(s) Supporting Document(s) ID Date Data Source [id number] 05/17/2020 03:13:11 PM EST [facility] Name Value Range Interpretation Code Description Data Nadira rce(s) Supporting Document(s) Progress Note [facility] LWRRTd4iRvWDIeDx91/QEKkmHRQwo6EwWSwiJNy5WHboBQIaO9OoKVX8rT0tRQJ5WOqNUkErApBwEtR0 lbm [file] signal technician+52VwLai5gR5EpsoK1cvCHD5oed9nKS4Qb7r0Qyl [file] ICAgICAgICAgICAgICAgICAgICAgICAgICAgICAgIC PhKOHkLEZmWFKxNYUbZSFrODQiVWBcELOuQDViKOGkTHKoLEQvPOPzUCMaLCCnHHFqYBNdWFKdNA7ARS AgICAgICAgICAgICAgICAgICAgICAgICAgICAgICAgICAgICAgICAgICAgICAgICAgICAgICAgICAgIC AgICAgICAgICAgICAgICAgICAgICAgICAgICAgICAg MGMwSNKxGH1BQRSgLWCsYMJfXHHfGGTgITPrXPRhDHZmJIGxZFZcBNXkYNNfZTCaLPPoKSXnNYCbPRGd BMMpVSKeASPtEVEiJWUgOIOwYPSnZNTtYFYqXJRuPIWtDXDmGCPcASTrAAVaKNXbUK1YSOXcZZCpWADu ICAgICAgICAgICAgICAgICAgICAgICAgICAgICAgIC AgICAgICAgICAgICAgICAgICAgICAgICAgICAgICAgICAgICAgICAgICAgICAgICAgICAgICAgICAgIA 0KICAgICAgICAgICAgICAgICAgICAgICAgICAgICAgICAgICAgICAgICAgICAgICAgICAgICAgICAgIC AgICAgICAgICAgICAgICAgICAgICAgICAgICAgICAg ITWpWUHgKWJkRQ1NARPvXMNzYJZsCBCoNATuVVYcFOZsNMBvYZWpBYIfTDAyBNRzVFShHCJmCQCmHFRe QSUqPTWiKPRzGZIpGUZtIGDhIPHaETRzDDUdDOOeRQTxCSWfORZqXWYjSDMaDMWsPEDbXH4YXQCuNRYp ICAgICAgICAgICAgICAgICAgICAgICAgICAgICAgIC AgICAgICAgICAgICAgICAgICAgICAgICAgICAgICAgICAgICAgICAgICAgICAgICAgICAgICAgICAgIC KdGK3OWYQmYBMtWKYyQZCfQYBrFMBkUKMaIHAlJYRoZYOdBGLwAXOpREGpINHvTINsSYFeLMZtKYVeED AgICAgICAgICAgICAgICAgICAgICAgICAgICAgICAg SLVbIDTpGEHnDNFdBX3OCZZrKYMvLOEpKBBlIXSuBTRrKJUvCBJjYMFuIUPtXTDmAXQuYRRuIXYbGZUj DRJdKQMxLJHlIEIhZWRsOQIeJHQeTMXiLHNoAFAhWFYlEDEfNFOsYQTmXDDpLRFmBUMtMSZkOU2EZB24 wOLpa5K1CIUpRH6vjhj/Sc2OPTcecyEkiPLuHO8DUg EfZA1rwt9ENyCrKH6dgu8QHVlCXaXhH3Q9gKUiCHMrCGJGPjXcZ36hHZlzMn99DVhbUDLuCyYeTYj9Rw 2QUoIlB4oiQJUqQtL6PKRlCsL0BSEhXmI7FKNxMjRgZGUsAZEtLAXxULLASK4RBtMsA8BibU47XEOKYz 4+ESrpijBnXmnTPhSdLSWsx9RyRDc3LD8GDUMxZzrj a9GtSqZdSNHWXStiCF3PTJO0VJC5IVGsBw0IZFCgI260fpCmVD0WQs3AYsLwTU8sgc7TWkMnKTQtRmvZ Tlc4NTatSG5VuAJmNYmZio9ulnCfpeIIu0EqhoQakRSRwUiopXGUMYOdCAqyWM9GXYE0ZVNsUHMlVgHi ZZFjSXvkCYQQFLpBNzNqY3Qqi9HmSaL3MUCcDoLuWL dhFBTaDeZ9QP46hMryFC3HKQTaAHZgNK70GSNgSPUvGx8BOh2CEzBlXT2xuk0DEmNdKXPpMefHHnn5TM koZL2QqSJbR2GgbSFch9kMNtAaD2ZZWVRyWLYaFn5LGXBvTyKzWANhLAhbOQ2pXRYjBTOKiCqkakZ4OM 0KHL9igmUiFB7KWrEoIy4zYf2UYhIsY1RhY2PbHDKt AKJQWLciHC6JGMzaXJ9vNJ0Fz8XTpUXhsT5zhw7RHXXaQFHlAjwyui4HVbjsO1T8dVsaDDToUiOoKNMT LGuiKV9UMWMvFNK0CUImBwNbMHVKFyZaJ29iSP4XT3Cyi37jCnF4PDDmLnMfIWsaHK24xZigezUzuNSn cKwfHH8VMl3+DQplbmRvYmoNCnhyZWYNCjAgMzYNCj HoJRGgLVUtUOYnYkI4EaZnDe8OCPUtZJDbMEPwTfTsAYDjPHAcWVsmHIKkWLCrTNF9PZLmPOXdQZ5FGf UnXPQrWVI6UlvpYTGsFJRppl0IPHMhEBNwVMB8IeDeBSAoDFChOPliFUCcECG2OYR6UECoFDNrFZ8YDx TzOCAuBVY2EPlaWYAgXDUeoi6LXACoWHChCbc7JBXw YRQpJVAiWGefFNFfHUO4NCS3ZKGqRGZlZN8USpNsFLJvZJXmFKEzTFPsIQOljm9ZACWwVOHkMUA6OXDj RNPuRTUzVGgkVBVsXLExVXVlEAPmUVAwMF6XYdFqEXFsOALdVZQkQFXaCKLjki1PNNUtMYBlPvr0FFFz BJXuRIUsBSrqDWMxXSSgJPzgKRLpBAJyQG4DPcWwIO TmXXZ9SZWpTRSvIPQoys3EQDQeDIEoRRRiTsMaQVNoKDOxMYfsRNZfHDS3PvUtAYDvRNHvVY5IUfIhDW GhYHPkCevuJPZtSHYtpf5ETAAxNXIcVvO7ZWYdXQXnSQSoVVkoSXSpPHH1AnM5BSPsVDCpLR9NVzGwFF VoALS9LxqlQIZyLLQiae7CEGThEFG3RoU1WtNcYWLw CWNdQZllWFIaHMD6UcqgDAIqFOHqNB2UAxQeKBZfGAanBPMkNAZeZGAzdr2INBDaOTV5HTD9JOJdYKMt IIRrMLidJXUcOSS3ZOUmOURxMVCyOX4SYnIxFXBiTRjbRsJiUKJrZPVqdq5KFHRsAVE1CWF2OLXvAFQy TOSaICqjQHWhZUAsRYE9PSIsTRIzXM1PJvAwWZFrEF I0XyrkNRQeTXEjuq6KVYNvAFG8LPzyBDGqRRKiTZHjBYjqOAGyIREsXlN0GDYaQYJlZJ4WVnOdWRCxGH H3SZHjMWLmPDQykv7CBVScFQN9Ncc9DlNfVLZhCBOwVAwrFXZnRMMsIPQdBHAmASOpJB4XWuAsPRugTI RBHmf3RFziO9k8WCXxBg4WB8Rsu9ItExXfSTLBHHvi IV3fkoCxGZNjIf4LE4jAWunjBrWxQ5MaMXHzN1NbPtAwOUZ3HZQiKKAtGNJgYbC2SV6uWWD2GEK5EHT2 OWSaBVJuXPF3IwZsYuAeCbXvZmZeTQP9QcLzFB1XIh3IGlE2NVW6aAGcFt8UIZAeGiTZPsDaFL3SBQq= ID Date Data Source [id number] 04/28/2020 11:43:46 AM EST [facility] Name Value Range Interpretation Code Description Data Nadira rce(s) Supporting Document(s) Patient Education [facility] IPCDMy1zChPYNnNxe8ctVTxaLHNiw9WiHSi5WL8OK1Mkjv8Sn6RgJANmTDZBTTjrKWUbNK1rXVNiF7Nt oKQ [file] Uo3PpeMuNIOoMELbCl2FXi5MRd8Oi7FcziA2hhQzHMo7QyU9Zf0RUZZLD8BCTz== ID Date Data Source [id number] 04/23/2020 03:24:36 PM EST [facility] Name Value Range Interpretation Code Description Data Nadira rce(s) Supporting Document(s) *Follow Up Visit DONA v1 [facility] GDRLVm0zJhHMRyFwq4fzQRplPVUit3RmXRp4EN9AL4YnU6BHITpgiPIfX90nZRFgdBKebd7YY9TwQGis 1c3 [file] QaP410NiqFDk4STGQqWTOgYCStjdX9171vnUtKwCLGvlitBiZ9w8qY2WDlHNDtguWdS19lBL3If1y/signal technician [file] IGDlUg9QV2rfSk9wIQweYHEVXCljE0y0LGD0FA2N Yv2ZIs8Ud9CpdkE7swZdKXikNpFiSnTWGsYyUM0EIEi= ID Date Data Source [id number] 04/23/2020 04:04:[address] [facility] CHE[facility] INSERTION INDICATION: Colon c ancer. Access for treatment. All elements of routine sterile technique were employed to prevent catheter-related infection including hand hygiene, skin preparation, and sterile ultrasound techniques if applicable. PROCEDURE AND MATERIALS: Informed consent was obtained. Using sterile ultrasound guided technique, microneedle puncture of the right internal jugular vein was made. Expansion of the venotomy site with blunt subcutaneous dissection. Placement of a peel-away sheath. An incision was made on the upper chest and blunt dissection was performed to create a pocket. The catheter was pulled through a subcutaneous tunnel connecting the pocket to the venotomy site. After trimming to an appropriate length, the catheter was placed through a peel-away sheath so that the tip was confirmed by spot film to be near the caval-atrial junction. After connecting the single lumen port to the catheter, it was accessed and flushed, examined for leaks, and none were noted. Deep and superficial closure was then performed using 2-0 Vicryl and Skin Affix adhesive. A sterile dressing was applied. MEDICATIONS: 1% Lidocaine. The specific port implanted was a 6.6 [place] single lumen, open ended MedComp mini Dignity CT catheter. Fluoro time: 8.0 secondsNumber of images obtained: 1 Fluoroscopic personal supervision provided by Dr. Herrera. IMPRESSION: Sonographically assisted placement of a right single lumen chest port as described. Chest port may be used immediately. Procedure performed by Mary Giron NP. Professional interpretation performed at [facility] . Name Value Range Interpretation Code Description Data Nadira rce(s) Supporting Document(s) ID Date Data Source [id number] 04/23/2020 04:04:00 PM EST [facility] CHEST PORT INSERTION INDICATION: Colon c ancer. Access for treatment. All elements of routine sterile technique were employed to prevent catheter-related infection including hand hygiene, skin preparation, and sterile ultrasound techniques if applicable. PROCEDURE AND MATERIALS: Informed consent was obtained. Using sterile ultrasound guided technique, microneedle puncture of the right internal jugular vein was made. Expansion of the venotomy site with blunt subcutaneous dissection. Placement of a peel-away sheath. An incision was made on the upper chest and blunt dissection was performed to create a pocket. The catheter was pulled through a subcutaneous tunnel connecting the pocket to the venotomy site. After trimming to an appropriate length, the catheter was placed through a peel-away sheath so that the tip was confirmed by spot film to be near the caval-atrial junction. After connecting the single lumen port to the catheter, it was accessed and flushed, examined for leaks, and none were noted. Deep and superficial closure was then performed using 2-0 Vicryl and Skin Affix adhesive. A sterile dressing was applied. MEDICATIONS: 1% Lidocaine. The specific port implanted was a 6.6 Beninese single lumen, open ended MedComp mini Dignity CT catheter. Fluoro time: 8.0 secondsNumber of images obtained: 1 Fluoroscopic personal supervision provided by Dr. Herrera. IMPRESSION: Sonographically assisted placement of a right single lumen chest port as described. Chest port may be used immediately. Procedure performed by Mary Giron NP. Professional interpretation performed at [facility] . Name Value Range Interpretation Code Description Data Nadira rce(s) Supporting Document(s) ID Date Data Source [id number] 04/07/2020 03:05:00 PM EST [facility] ([facility]) Name Value Range Interpretation Code Description Data Nadira rce(s) Supporting Document(s) Potassium [Moles/volume] in Serum or Plasma 2.6 meq/L 3.5-5.1 [facility]ANN[facility] ([facility]) BACK AND VERIFIED BY KB ID Date Data Source [id number] 04/07/2020 03:05:00 PM EST MEDENT ([facility]) Name Value Range Interpretation Code Description Data Nadira rce(s) Supporting Document(s) CPK Creatine Phosphokinase 46 U/L 26-192 [facility] ([facility]) CK-MB Value Mass Laboratory test result [facility] ([facility]) MB/CK Relative Index 2.17 [facility] ([facility]) <content>DIAGNOSIS CRITERIA</content>
<content>MMB ng/ml Relative Index (RI)</content>
<content>NON-AMI < or = 5 N/A</content>
<content>WILBURN ZONE > 5 < or = 4</content>
<content>AMI > 5 > 4</content>
<content></content> Troponin I Laboratory test result [facility] <content>Troponin I Reference Interval f or Siemens [place] LOCI:</content>
<content></content>
<content>99th Percentile= 0.00-0.045 ng/ml</content>
<content></content>
<content>Risk Stratification:</content>
<content><= 0.10 ng/ml Decreased Risk for Adverse Clinical</content>
<content>Events.</content>
<content>0.10-1.50 ng/ml Increased Risk for Adverse Clinical</content>
<content>Events. Evaluation of additional</content>
<content>criterion and/or repeat testing in 2-6</content>
<content>hours is suggested to rule out myocardial</content>
<content>damage.</content>
<content>>= 1.50 ng/ml Indicative of Myocardial Injury.</content>
<content></content> ID Date Data Source [id number] 04/06/2020 07:00:16 PM EST [facility] Name Value Range Interpretation Code Description Data Nadira rce(s) Supporting Document(s) *Initial Consult Visit DONA v1 [facility] IXYQQc6dYsYLTmDez9ekZHfvAQIsj1PjIVb5WD9AI769pMA4sPebgEMomQMjVsi5OVqzX3I7pCJ3R08u xKQ [file] CAROL ANN+PDAwMEI+PDAwMjg+CjwwMDBDPjwwMDBDPjwwMD X2Ijg6NXQtBs98MQExKi48JPZeHw7MAXBbZKB+PDAwMTA+PDAwQUQ+CjwwMDExPjwwMDExPjwwMDJFPg s9LOZcRv84FOUuPh76LBPaIw5MEEMmJRD+PDAwMTM+PDAwMzA+EeceTIL7SeqdLMY2WcvaOONsTpe8HZ KfTE05ZGZxVN01GWGdCa2UIJNlAMG+PDAwMTY+PDAw MzM+CvjgTNB6AjdoWHD9FvhqWEJ5Yxl6FHGjSA22JVRkJZ44IRClGE9TSFHmZGk+PDAwMTk+PDAwMzY+ EgihQKPRFmagKAPFBruuMGO6Vsj2LZFaSk43HCQlUr53ROBrFZ4IMQVaLWW+PDAwMUM+PDAwMzk+Cjww TUMFOoihRMTNWzniPAJUCdm1AUUeYN34CDSoCJ52AC C3YM7EPHAnFaA+PDAwMjA+ZJBzB6E+WrznDKO6SbdqIZT4NynzZIHhOxj6NBWmJH22JHQmAX25JFW2Dd 4KPDAwMjY+PDAwMjY+PDAwNDM+IapxBJM8ZsuuNIQ6UlujMVI2Fuc0FVRrCE28SRZhHK08GKV3IZ6HWC AwMjk+PDAwMjk+PDAwNDY+CjwwMDJBPjwwMDJBPjww [file] Ou5ECh9Du5ThefM1mvKkDXkgOFO0UzXXKoPgWV1MKLd= ID Date Data Source [id number] 03/13/2020 07:28:35 AM EST [facility] Name Value Range Interpretation Code Description Data Nadira rce(s) Supporting Document(s) SODIUM 143 mmol/L (136-145) [facility] POTASSIUM 3.8 mmol/L (3.6-5.2) [facility] CHLORIDE 108 mmol/L (100-108) [facility] CO2 30 mmol/L (22-31) [facility] ANION GAP 5 mmol/L (7-16) L [facility] UREA NITROGEN 2 mg/dL (7-24) L [facility] CREATININE 0.45 mg/dL (0.60-1.00) L [facility] BUN/CREAT RATIO 4.4 RATIO (10.0-20.0) L [facility] GLUCOSE 98 mg/dL (70-99) [facility] CALCIUM 8.4 mg/dL (8.4-10.2) [facility] GFR >60 ml/min/1.73m2 (>59) [facility] GFR ( AMER) >60 ml/min/1.73m2 (>59) [facility] GFR INTERPRETATION [facility] --NORMAL KIDNEY FUNCTION OR MILD DISEASE - GFR >OR= 60CHRONIC KIDNEY DISEASE - GFR 15 - 59RENAL FAILURE - GFR <15 Est. GFR calculation based on the MDRDstudy equation, which assumes a steadystate for creatinine. Est. GFR should notbe used for medication dosing. ID Date Data Source [id number] 03/12/2020 08:30:06 AM EST [facility] Name Value Range Interpretation Code Description Data Nadira rce(s) Supporting Document(s) PHOSPHORUS 2.9 mg/dL (2.5-4.5) [facility] ID Date Data Source [id number] 03/12/2020 08:30:06 AM EST [facility] Name Value Range Interpretation Code Description Data Nadira rce(s) Supporting Document(s) SODIUM 143 mmol/L (136-145) [facility] POTASSIUM 3.4 mmol/L (3.6-5.2) L [facility] CHLORIDE 106 mmol/L (100-108) [facility] CO2 28 mmol/L (22-31) [facility] ANION GAP 9 mmol/L (7-16) [facility] UREA NITROGEN 2 mg/dL (7-24) L [facility] CREATININE 0.48 mg/dL (0.60-1.00) L [facility] BUN/CREAT RATIO 4.2 RATIO (10.0-20.0) L [facility] GLUCOSE 111 mg/dL (70-99) H [facility] CALCIUM 8.6 mg/dL (8.4-10.2) [facility] GFR >60 ml/min/1.73m2 (>59) [facility] GFR ( AMER) >60 ml/min/1.73m2 (>59) [facility] GFR INTERPRETATION [facility] --NORMAL KIDNEY FUNCTION OR MILD DISEASE - GFR >OR= 60CHRONIC KIDNEY DISEASE - GFR 15 - 59RENAL FAILURE - GFR <15 Est. GFR calculation based on the MDRDstudy equation, which assumes a steadystate for creatinine. Est. GFR should notbe used for medication dosing. ID Date Data Source [id number] 03/11/2020 08:58:31 AM EST [facility] Name Value Range Interpretation Code Description Data Nadira rce(s) Supporting Document(s) SODIUM 145 mmol/L (136-145) [facility] POTASSIUM 3.3 mmol/L (3.6-5.2) L [facility] CHLORIDE 109 mmol/L (100-108) H [facility] CO2 30 mmol/L (22-31) [facility] ANION GAP 6 mmol/L (7-16) L [facility] UREA NITROGEN 2 mg/dL (7-24) L [facility] CREATININE 0.48 mg/dL (0.60-1.00) L [facility] BUN/CREAT RATIO 4.2 RATIO (10.0-20.0) L [facility] GLUCOSE 96 mg/dL (70-99) [facility] CALCIUM 8.4 mg/dL (8.4-10.2) [facility] GFR >60 ml/min/1.73m2 (>59) [facility] GFR ( AMER) >60 ml/min/1.73m2 (>59) [facility] GFR INTERPRETATION Lab [facility] --NORMAL KIDNEY FUNCTION OR MILD DISEASE - GFR >OR= 60CHRONIC KIDNEY DISEASE - GFR 15 - 59RENAL FAILURE - GFR <15 Est. GFR calculation based on the MDRDstudy equation, which assumes a steadystate for creatinine. Est. GFR should notbe used for medication dosing. ID Date Data Source [id number] 03/11/2020 08:58:31 AM EST [facility] Name Value Range Interpretation Code Description Data Nadira rce(s) Supporting Document(s) PHOSPHORUS 2.4 mg/dL (2.5-4.5) L [facility] ID Date Data Source [id number] 03/10/2020 11:32:41 AM EST [facility] Name Value Range Interpretation Code Description Data Nadira rce(s) Supporting Document(s) TSH,ULTRASENSITIVE @ 0.403 mIU/L (0.360-4.170) [facility] PERFORMED AT [address] [address] ID Date Data Source [id number] 03/10/2020 11:32:41 AM EST [facility] Name Value Range Interpretation Code Description Data Nadira rce(s) Supporting Document(s) PHOSPHORUS 2.1 mg/dL (2.5-4.5) L [facility] ID Date Data Source [id number] 03/10/2020 11:32:41 AM EST [facility] Name Value Range Interpretation Code Description Data Nadira rce(s) Supporting Document(s) MAGNESIUM 2.0 mg/dL (1.7-2.4) [facility] ID Date Data Source [id number] 03/10/2020 11:32:41 AM EST [facility] Name Value Range Interpretation Code Description Data Nadira rce(s) Supporting Document(s) SODIUM 145 mmol/L (136-145) [facility] POTASSIUM 3.8 mmol/L (3.6-5.2) [facility] CHLORIDE 111 mmol/L (100-108) H [facility] CO2 29 mmol/L (22-31) [facility] ANION GAP 5 mmol/L (7-16) L [facility] UREA NITROGEN 3 mg/dL (7-24) L [facility] CREATININE 0.45 mg/dL (0.60-1.00) L [facility] BUN/CREAT RATIO 6.7 RATIO (10.0-20.0) L [facility] GLUCOSE 96 mg/dL (70-99) [facility] CALCIUM 8.8 mg/dL (8.4-10.2) [facility] GFR >60 ml/min/1.73m2 (>59) [facility] GFR ( AMER) >60 ml/min/1.73m2 (>59) [facility] GFR INTERPRETATION [facility] [place] --NORMAL KIDNEY FUNCTION OR MILD DISEASE - GFR >OR= 60CHRONIC KIDNEY DISEASE - GFR 15 - 59RENAL FAILURE - GFR <15 Est. GFR calculation based on the MDRDstudy equation, which assumes a steadystate for creatinine. Est. GFR should notbe used for medication dosing. ID Date Data Source [id number] 03/09/2020 01:14:51 PM EST [facility] Name Value Range Interpretation Code Description Data Nadira rce(s) Supporting Document(s) MAGNESIUM 2.0 mg/dL (1.7-2.4) [facility] ID Date Data Source [id number] 03/09/2020 01:14:51 PM EST [facility] Name Value Range Interpretation Code Description Data Nadira rce(s) Supporting Document(s) SODIUM 144 mmol/L (136-145) [facility] POTASSIUM 3.5 mmol/L (3.6-5.2) L [facility] CHLORIDE 110 mmol/L (100-108) H [facility] CO2 29 mmol/L (22-31) [facility] ANION GAP 5 mmol/L (7-16) L [facility] UREA NITROGEN 4 mg/dL (7-24) L [facility] CREATININE 0.40 mg/dL (0.60-1.00) L [facility] BUN/CREAT RATIO 10.0 RATIO (10.0-20.0) [facility] GLUCOSE 114 mg/dL (70-99) H [facility] CALCIUM 8.6 mg/dL (8.4-10.2) [facility] GFR >60 ml/min/1.73m2 (>59) [facility] GFR ( AMER) >60 ml/min/1.73m2 (>59) [facility] GFR INTERPRETATION [facility] --NORMAL KIDNEY FUNCTION OR MILD DISEASE - GFR >OR= 60CHRONIC KIDNEY DISEASE - GFR 15 - 59RENAL FAILURE - GFR <15 Est. GFR calculation based on the MDRDstudy equation, which assumes a steadystate for creatinine. Est. GFR should notbe used for medication dosing. ID Date Data Source [id number] 03/09/2020 01:08:02 PM EST [facility] Name Value Range Interpretation Code Description Data Nadira rce(s) Supporting Document(s) WBC 4.5 10*3/uL (4.1-11.0) [facility] [place] RBC 3.60 10*6/uL (4.00-5.40) L [facility] HGB 11.4 g/dL (12.0-16.0) L [facility] HCT 34.4 % (36.0-47.0) L [facility] MCV 95.6 fL (80.0-95.0) H [facility] MCH 31.8 pg (27.0-32.0) [facility] MCHC 33.2 g/dL (32.0-36.0) [facility] RDW 12.7 % (10.5-14.5) [facility] PLT 294 10*3/uL (150-450) [facility] MPV 8.4 fL (7.1-10.7) [facility] NEUT % 66.9 % (35.0-75.0) [facility] LYMPH % 14.8 % (16.0-52.0) L [facility] MONO % 14.4 % (0.0-8.0) H [facility] EOS % 3.5 % (0.0-5.0) [facility] BASO % 0.4 % (0.0-4.0) [facility] NEUT # 3.0 10*3/uL (1.8-7.7) [facility] LYMPH # 0.7 10*3/uL (1.2-4.8) L [facility] MONO # 0.6 10*3/uL (0.0-0.8) [facility] Eosinophils [#/volume] in Blood by Automated count 0.2 10*3/uL (0.0-0 .5) [facility] BASO # 0.0 10*3/uL (0.0-0.2) [facility] ID Date Data Source [id number] 03/09/2020 01:14:51 PM EST [facility] Name Value Range Interpretation Code Description Data Nadira rce(s) Supporting Document(s) PHOSPHORUS 1.9 mg/dL (2.5-4.5) L [facility] ID Date Data Source [id number] 03/10/2020 03:54:23 PM EST [facility] SPECIMEN DESCRIPTION URINE, COLLE CTION METHOD NOT SPECIFIEDRESULT NEGATIVE FOR LEGIONELLA PNEUMOPHILA TYPE 1 ANTIG EN BY EIAA NEGATIVE RESULT DOES NOT EXCLUDE INFECTION WITH LEGIONELLAPNEUMOPHILA SEROGROUP 1 NOR DOES IT RULE OUT OTHER MICROBIAL CAUSEDRESPIRATORY INFECTIONS OR DISEASE CAUSED BY OTHER SEROGROUPS OFLEGIONELLA PNEUMOPHILA. REPORT STATUS FINAL 03/10/2020 Name Value Range Interpretation Code Description Data Nadira rce(s) Supporting Document(s) ID Date Data Source [id number] 03/19/2020 07:38:09 AM EST [facility] Name Value Range Interpretation Code Description Data Nadira rce(s) Supporting Document(s) CULTURE RESULTS [facility] SEE NOTE Specimen received and in progre ss. Performed by [employer], [address] [place] [address] [email or web address], Naa Pisano MD, Lab. draw in hand STATUS [facility] SEE NOTE Culture negative for Legionella species Performed by [employer], [address] [place] [address] [email or web address], Naa Pisano MD, Lab. Director ID Date Data Source [id number] 03/08/2020 04:56:00 PM EST [facility] DATE OF EXAM: 03/08/2020CT CHEST WITH CO NTRAST CLINICAL HISTORY: TACHYCARDIA, BILBASILAR PNEUMONIA ON CXR COMPARISON: 03/07/2020 chest x-ray. CONTRAST: 75 mL IV Omnipaque 350 TECHNIQUE: Axial CT images were obtained of the chest were obtained with contrast. Additional coronal and sagittal reformatted images were obtained. One or more of the following dose reduction techniques were utilized in effectively lowering the radiation dose for this examination: Automated Exposure Control, Adjustment of the mA and/or kV according to patient size, or Iterative reconstruction. FINDINGS: Lines and devices: None. Lungs: There is severe centrilobular emphysema. There is a trace left sided pleural effusion. There is mild bibasilar atelectasis. Large airways: Unremarkable. Mediastinum and oni: There is no lymphadenopathy. Vessels: No PE is identified. There are scattered atherosclerotic calcifications. Heart: Coronary artery calcifications are seen. Chest wall/tissues: Unremarkable. Bones: There are multilevel degenerative changes. Upper abdomen: Unremarkable. IMPRESSION: 1. There is no pulmonary embolus.2. Severe centrilobular emphysema. Trace left sided pleural effusion. Professional interpretation performed at [facility] .End of diagnostic report for accession: [id number] Interpreted: Hazel Garciascribed: 03/08/2020 04:45 PMSigned: 03/08/2020 04:56 PM Hazel Garcia DO [facility] # [id number] [facility] # [id number] Name Value Range Interpretation Code Description Data Nadira rce(s) Supporting Document(s) ID Date Data Source [id number] 03/08/2020 08:03:17 AM EST [facility] Name Value Range Interpretation Code Description Data Nadira rce(s) Supporting Document(s) MAGNESIUM 2.0 mg/dL (1.7-2.4) [facility] ID Date Data Source [id number] 03/08/2020 08:03:17 AM EST [facility] Name Value Range Interpretation Code Description Data Nadira rce(s) Supporting Document(s) PHOSPHORUS 2.3 mg/dL (2.5-4.5) L [facility] ID Date Data Source [id number] 03/08/2020 08:03:17 AM EST [facility] Name Value Range Interpretation Code Description Data Nadira rce(s) Supporting Document(s) SODIUM 144 mmol/L (136-145) [facility] POTASSIUM 3.6 mmol/L (3.6-5.2) [facility] CHLORIDE 107 mmol/L (100-108) [facility] CO2 31 mmol/L (22-31) [facility] ANION GAP 6 mmol/L (7-16) L [facility] UREA NITROGEN 5 mg/dL (7-24) L [facility] CREATININE 0.50 mg/dL (0.60-1.00) L [facility] BUN/CREAT RATIO 10.0 RATIO (10.0-20.0) [facility] GLUCOSE 115 mg/dL (70-99) H [facility] CALCIUM 8.5 mg/dL (8.4-10.2) [facility] GFR >60 ml/min/1.73m2 (>59) [facility] GFR ( AMER) >60 ml/min/1.73m2 (>59) [facility] GFR INTERPRETATION [facility] --NORMAL KIDNEY FUNCTION OR MILD DISEASE - GFR >OR= 60CHRONIC KIDNEY DISEASE - GFR 15 - 59RENAL FAILURE - GFR <15 Est. GFR calculation based on the MDRDstudy equation, which assumes a steadystate for creatinine. Est. GFR should notbe used for medication dosing. ID Date Data Source [id number] 03/08/2020 07:42:13 AM EST [facility] Name Value Range Interpretation Code Description Data Nadira rce(s) Supporting Document(s) WBC 10.0 10*3/uL (4.1-11.0) [facility] RBC 3.58 10*6/uL (4.00-5.40) L [facility] HGB 11.4 g/dL (12.0-16.0) L [facility] HCT 34.0 % (36.0-47.0) L [facility] MCV 95.0 fL (80.0-95.0) [facility] MCH 31.7 pg (27.0-32.0) [facility] MCHC 33.4 g/dL (32.0-36.0) [facility] RDW 13.0 % (10.5-14.5) [facility] PLT 259 10*3/uL (150-450) [facility] MPV 8.3 fL (7.1-10.7) [facility] NEUT % 84.0 % (35.0-75.0) H [facility] LYMPH % 7.0 % (16.0-52.0) L [facility] MONO % 8.7 % (0.0-8.0) H [facility] EOS % 0.1 % (0.0-5.0) [facility] BASO % 0.2 % (0.0-4.0) [facility] NEUT # 8.4 10*3/uL (1.8-7.7) H [facility] LYMPH # 0.7 10*3/uL (1.2-4.8) L [facility] MONO # 0.9 10*3/uL (0.0-0.8) H [facility] Eosinophils [#/volume] in Blood by Automated count 0.0 10*3/uL (0.0-0 .5) [facility] BASO # 0.0 10*3/uL (0.0-0.2) [facility] ID Date Data Source [id number] 03/08/2020 06:38:00 AM [facility]AM: [facility]/08/2020EXAM:Abdomen 1V CLINICAL INDICATION: S/P SURGERY- SPECIFY TECHNIQUE: A single supine view of the abdomen was obtained. COMPARISON: None. FINDINGS: There are midline surgical skin soham. There is gaseous distention of the stomach and multiple small bowel loops. There are right upper quadrant surgical clips. The visualized osseous structures are grossly intact. There is mild bibasilar atelectasis. IMPRESSION: Nonspecific bowel gas pattern, possibly representing postoperative ileus. Continued plain film follow-up is recommended. A contemporaneous report was provided by [facility] at the time of this examination, reporting similar findings. L2End of diagnostic report for accession: [id number] Interpreted: Hazel Garciaribed: 03/08/2020 06:32 AMSigned: 03/08/2020 06:38 AM Hazel Garcia DO [facility] # [id number] BILL # [id number] Name Value Range Interpretation Code Description Data Nadira rce(s) Supporting Document(s) ID Date Data Source [id number] 03/07/2020 10:08:00 AM EST [facility] Name Value Range Interpretation Code Description Data Nadira rce(s) Supporting Document(s) NT PRO BNP 603 pg/mL (0-125) H [facility] ID Date Data Source [id number] 03/07/2020 10:08:00 AM EST [facility] Name Value Range Interpretation Code Description Data Nadira rce(s) Supporting Document(s) SODIUM 140 mmol/L (136-145) [facility] POTASSIUM 4.6 mmol/L (3.6-5.2) [facility] CHLORIDE 108 mmol/L (100-108) [facility] CO2 28 mmol/L (22-31) [facility] ANION GAP 4 mmol/L (7-16) L [facility] UREA NITROGEN 4 mg/dL (7-24) L [facility] CREATININE 0.52 mg/dL (0.60-1.00) L [facility] BUN/CREAT RATIO 7.7 RATIO (10.0-20.0) L [facility] GLUCOSE 91 mg/dL (70-99) [facility] CALCIUM 8.3 mg/dL (8.4-10.2) L [facility] GFR >60 ml/min/1.73m2 (>59) [facility] GFR ( AMER) >60 ml/min/1.73m2 (>59) [facility] GFR INTERPRETATION Lab [facility] [place] --NORMAL KIDNEY FUNCTION OR MILD DISEASE - GFR >OR= 60CHRONIC KIDNEY DISEASE - GFR 15 - 59RENAL FAILURE - GFR <15 Est. GFR calculation based on the MDRDstudy equation, which assumes a steadystate for creatinine. Est. GFR should notbe used for medication dosing. ID Date Data Source [id number] 03/07/2020 10:08:00 AM EST [facility] Name Value Range Interpretation Code Description Data Nadira rce(s) Supporting Document(s) MAGNESIUM 1.7 mg/dL (1.7-2.4) [facility] ID Date Data Source [id number] 03/07/2020 09:26:00 AM EST [facility] DATE OF EXAM: 03/07/2020EXAM:Chest 1V Po rtable CLINICAL INDICATION: DYSPNEA TECHNIQUE: Single chest x-ray. COMPARISON: None. FINDINGS: Bibasilar airspace disease concerning for pneumonia.Diffuse emphysematous disease.Normal cardiovascular silhouette.Unremarkable osseous structures. IMPRESSION: 1. Bibasilar pneumonia. Professional interpretation performed at [facility] .End of diagnostic report for accession: [id number] Interpreted: Mendoza Sheridan MDTranscribed: 03/07/2020 09:25 AMSigned: 03/07/2020 09:26 AM Mendoza Sheridan MD [facility] # [id number] BILL # [id number] Name Value Range Interpretation Code Description Data Nadira rce(s) Supporting Document(s) ID Date Data Source [id number] 03/07/2020 08:08:23 AM EST [facility] Name Value Range Interpretation Code Description Data Nadira rce(s) Supporting Document(s) WBC 10.9 10*3/uL (4.1-11.0) [facility] RBC 3.51 10*6/uL (4.00-5.40) L [facility] [facility] HGB 11.2 g/dL (12.0-16.0) L [facility] HCT 33.6 % (36.0-47.0) L [facility] MCV 95.6 fL (80.0-95.0) H [facility] MCH 32.0 pg (27.0-32.0) [facility] MCHC 33.4 g/dL (32.0-36.0) [facility] RDW 12.9 % (10.5-14.5) [facility] PLT 229 10*3/uL (150-450) [facility] MPV 8.6 fL (7.1-10.7) [facility] ID Date Data Source [id number] 03/06/2020 09:08:27 AM EST [facility] Name Value Range Interpretation Code Description Data Nadira rce(s) Supporting Document(s) MAGNESIUM 1.9 mg/dL (1.7-2.4) [facility] ID Date Data Source [id number] 03/06/2020 09:08:27 AM EST [facility] Name Value Range Interpretation Code Description Data Nadira rce(s) Supporting Document(s) PHOSPHORUS 3.4 mg/dL (2.5-4.5) [facility] ID Date Data Source [id number] 03/06/2020 09:08:27 AM EST [facility] Name Value Range Interpretation Code Description Data Nadira rce(s) Supporting Document(s) SODIUM 144 mmol/L (136-145) [facility] POTASSIUM 4.0 mmol/L (3.6-5.2) [facility] CHLORIDE 112 mmol/L (100-108) H [facility] CO2 25 mmol/L (22-31) [facility] ANION GAP 7 mmol/L (7-16) [facility] UREA NITROGEN 7 mg/dL (7-24) [facility] CREATININE 0.66 mg/dL (0.60-1.00) [facility] BUN/CREAT RATIO 10.6 RATIO (10.0-20.0) [facility] GLUCOSE 98 mg/dL (70-99) [facility] CALCIUM 7.7 mg/dL (8.4-10.2) L [facility] GFR >60 ml/min/1.73m2 (>59) [facility] GFR ( AMER) >60 ml/min/1.73m2 (>59) [facility] GFR INTERPRETATION [facility] --NORMAL KIDNEY FUNCTION OR MILD DISEASE - GFR >OR= 60CHRONIC KIDNEY DISEASE - GFR 15 - 59RENAL FAILURE - GFR <15 Est. GFR calculation based on the MDRDstudy equation, which assumes a steadystate for creatinine. Est. GFR should notbe used for medication dosing. ID Date Data Source [id number] 03/06/2020 08:35:19 AM EST [facility] Name Value Range Interpretation Code Description Data Nadira rce(s) Supporting Document(s) WBC 11.3 10*3/uL (4.1-11.0) H [facility] RBC 3.69 10*6/uL (4.00-5.40) L [facility] HGB 11.7 g/dL (12.0-16.0) L [facility] HCT 34.9 % (36.0-47.0) L [facility] MCV 94.7 fL (80.0-95.0) [facility] MCH 31.7 pg (27.0-32.0) [facility] MCHC 33.4 g/dL (32.0-36.0) [facility] RDW 12.6 % (10.5-14.5) [facility] PLT 256 10*3/uL (150-450) [facility] MPV 8.4 fL (7.1-10.7) [facility] ID Date Data Source [id number] 03/06/2020 11:44:00 AM EST [facility] [address] [place], [place] [address]HJAGVMB NAME: JOSE PUENTESDATE OF : 1960REPORT: OPERATIONPATIENT NUMBER: [id number] STATUS: [facility] RECORD NUMBER: [id number] OF ADMISSION: 03/05/2020DATE OF DISCHARGE:ROOM: 01DATE OF PROCEDURE: 03/05/2020PREOPERATIVE DIAGNOSIS: Adenocarcinoma descending colon, Cruz syndrome.POSTOPERATIVE DIAGNOSIS: Adenocarcinoma descending colon, Cruz syndrome.PROCEDURE: Subtotal colectomy with ileosigmoid anastomosis.SURGEON: Randall Silver MDASSISTANT: Kameron Fair MDANESTHESIA: General.DESCRIPTION OF OPERATION: After induction of general endotrachealanesthesia, Mrs. Puentes was placed in modified lithotomy position. Theabdomen was prepped with Du raPrep, perineal area with Betadine, and drapedwith sterile towels, draped in standard fashion. Midline incision was usedto enter the abdomen. She has previously had a right colectomy. Therewere adhesions. We had to free up all of the adhesions. Theileotransverse colon anastomosis was identified and the small boweladhesions completely lysed freeing up plenty of length. There is apalpable cancer in the proximal descending colon. The descending colon wasmobilized laterally along the avascular white line of Toldt. The omentumwas taken off from the transverse colon. The lesser sac entered. We thentook down the splenocolic attachments with the Enseal, hemostasis intact,completely dividing the splenocolic attachments. Once this was done, pointwas chosen in the junction of the descending sigmoid colon area. The bowelwas then cleansed of surrounding fat and mesentery at this site. We thendivided the mesentery with the Enseal. Hemostasis completely intact. Proximal to the ileotransverse a nastomosis, the ileum was cleansed ofsurrounding fat and mesentery. This allowed for division of the remainderof the mesentery of the terminal ileum and transverse colon. We thendivided the terminal ileum with the WOOD blue cartridge and divided thecolon with the WOOD blue cartridge and removed the specimen consisting ofterminal ileum, transverse colon and the end portion of descending colon. After further lysing adhesions, I was able to bring the terminal ileum tothe proximal sigmoid area. We then did a ogez-wx-fear syhnnxvoprjed-cc-cqi anastomosis with the WOOD stapler blue cartridge and closing thefinal defect with a TA 64.8 mm staple. This suture line was overrun with3-0 Vicryl suture. Hemostasis intact. The anastomosis was pink all aroundand palpably patent. The mesentery defect was closed with 3-0 Vicrylsuture. The abdomen was well irrigated. There was no bleeding. No injuryto any other organs that could be seen and changed gloves. The incisionwas closed with running one PDS. Wound well irrigated. Skin staplesapplied. The sponge, instrument, needle count was reported as correct. Blood loss approximately 200 mL. Anesthesia then proceeded to do a TAPblock after which the patient was taken to recovery room.DICTATED BY: Randall Silver, MDDictated: 03/05/2020 16:42DT: 03/05/2020 16:52Job #: [id number]: [facility] computer generated reports are not confirmed orauthenticated unless they are signed by the providerElectronically Authenticated by:RANDALL SILVER MD On 03/06/2020 11:44 AM EST Name Value Range Interpretation Code Description Data Nadira rce(s) Supporting Document(s) ID Date Data Source [id number] 03/06/2020 10:48:19 AM EST [facility] SPECIMEN DESCRIPTION CATHETERIZED URINECULTURE RESULTS NO GROWTHREPORT STATUS FINAL 03/06/2020 Name Value Range Interpretation Code Description Data Nadira rce(s) Supporting Document(s) ID Date Data Source [id number] 03/05/2020 02:29:28 PM EST [facility] Name Value Range Interpretation Code Description Data Nadira rce(s) Supporting Document(s) URINE WBC (0-5) [facility] URINE RBC (0-2) [facility] MUCUS 1+ [HPF] [facility] AMORPHOUS 4+ [HPF] [facility] ID Date Data Source [id number] 03/05/2020 01:53:36 PM EST [facility] Name Value Range Interpretation Code Description Data Nadira rce(s) Supporting Document(s) COLOR [facility] APPEARANCE [facility] SPEC GRAV URINE 1.027 (1.003-1.030) [facility] PH URINE 5.0 (5.0-7.5) [facility] LEUK ESTERASE 1+ (NEG) A [facility] NITRITE URINE (NEG) A [facility] PROTEIN URINE (NEG) A [facility] GLUCOSE URINE (NEG) [facility] KETONE URINE 1+ (NEG) A [facility] UROBILINOGEN 0.2 mg/dL (0-1.0) [facility] BILIRUBIN URINE 1+ (NEG) A [facility] INTERFERING SUBSTANCES MAY CAUSE FALSEPO SITIVE BILIRUBIN, WHICH HAS BEENSHOWN TO BE CLINICALLY INSIGNIFICANT.CORRELATE WITH OTHER TESTING. BLOOD/HGB URINE (NEG) [facility] ID Date Data Source [id number] 03/12/2020 10:11:03 PM EST [facility] [place], [place] [address]Hkp# SURGICAL PATHOLOGY REPORTPatient Name:JOSE PUENTES:1960Received:03/08/2020Accession #:[id number](s) Received: A: Transverse and proximal descending colonClinical Diagnosis and History: Descending colon carcinoma.(Per review of previous pathology reports and med record, patient withhistory of Cruz Syndrome. 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 TUMOR SITE: DESCENDING COLON TUMOR SIZE: 4.6 X 2.5 CM MACROSCOPIC TUMOR PERFORATION: ABSENT HISTOLOGIC TYPE: MUCINOUS. HISTOLOGIC GRADE: POORLY DIFFERENTIATED TUMOR EXTENSION: INTO SUBSEROSAL FAT MARGINS: PROXIMAL SMALL BOWEL: NEGATIVE. DISTAL COLONIC: NEG ATIVE. RADIAL (CIRCUMFERENTIAL): NEGATIVE. TREATMENT EFFECT: N/A LYMPHOVASCULAR INVASION: PRESENT, PROMINENT. PERINEURAL INVASION: NOT IDENTIFIED. TUMOR BUDDING: N/A TUMOR DEPOSITS: ABSENT. REGIONAL LYMPH NODES: Number of Lymph Nodes Involved: 1 Number of Lymph Nodes Examined: 53 PATHOLOGIC STAGE CLASSIFICATION (pTNM, AJCC 8TH EDITION): pT3 pN1a ADDITIONAL PATHOLOGIC FINDINGS: ULCERATION OF CARCINOMA PROMINENT CHRONIC INFLAMMATION ASSOCIATED WITH CARCINOMA MULTIPLE TUBULAR ADENOMAS AND HYPERPLASTIC POLYP. FOCAL DIVERTICULOSIS. INTACT ILEOCOLONIC ANASTOMOSIS. ANCILLARY STUDIES: Immunohistochemistry (IHC) Testing for Mismatch Repair (MMR)Proteins: MLH1: Intact Nuclear Expression MSH2: Loss of Nuclear Expression MSH6: Loss of Nuclear Expression PMS2: Intact Nuclear Expression BRAF Expression (by immunohistochemistry): Negative for cytoplasmic expression IHC Interpretation: Loss of nuclear expression of MSH2 and MSH6: high probability ofLynch syndrome. GROSS DESCRIPTION: Specimen received in formalin labeled "transverse and proximal descendingcolon" is a 40.0 cm in length segment of previously opened large bowelwith attached pericolonic adipose tissue. The ends of the specimen arenot designated and will arbitrarily be designated as margin one and margintwo. The serosa is glistening, red-ferreira with scattered fibromembranousadhesions. Located closer to margin one is an area of intact previousanastomosis. Located on the mucosal surface is a 4.6 x 2.5 cm almostcircumferential indurated centrally ulcerated tumor which is located 28.9cm margin one, 5.0 cm from margin two and 24.5 cm from the previousanastomosis. The cut surface is indurated wilburn-white and the tumorinvades the wall transmurally extending into the underlying pericolonicadipose tissue and extending to within 0.2 cm of a closest serosalsurface. There is black tattooing ink located on the colonic mucosaadjacent to the tumor closer to margin two. The remaining colonic mucosais glistening ferreira with normal folds and several additional polyps areidentified that vary from 0.7 x 0.3 cm to 1.0 x 0.8 cm, one of which islocated 2.0 cm from the previous anastomosis. Also identified in the moredistal aspect of the specimen are several non-complicated diverticulawhich extend into the underlying adipose tissue. The luminalcircumferences average 7.2 cm and the wall thickness measures up to 0.8cm. The mucosa adjacent to the anastomosis is intact with no grossidentifiable lesions. Sectioning through the attached adipose tissuereveals multiple (greater than 25) lymph nodes that vary from 0.3 x 0.2 cmto 0.9 x 0.8 cm. The larger lymph nodes have rubbery wilburn-ferreira cutsurfaces. The outer surface of the tumor is inked kendal, the specimen issectioned and sections are submitted for microscopic examination asdesignated: M1 margin one; M2 margin two; T tumor to include inkedserosal surface in A6; P multiple colonic polyps; D random diverticula;LN lymph nodes as designated: A12-A18 multiple whole lymph nodes in eachcassette, A19 two bisected lymph nodes, one differentially inked black,A20 one bisected lymph node. (20 blocks) [email or web address]/rceReported: 03/12/2020Electronically Signed Out By Altagracia Cadena M.D. [facility] [place], [place] [address]Technical component performed at [facility], Histopathology, [address] [place] [address], [phone].Reported at [facility], [address] [place] [address], [phone].This report may include immunohistochemical or in-situ hybridizationresults. Testing was developed and the performance characteristicsdetermined by [employer] [facility], as required byCLIA '88. The FDA has determined that approval for specific use is notnecessary for clinical use. The quality of Hakeem toxylin and Eosin stainsand as applicable, for all immunohistochemical and/or special stains,including positive and negative controls, were reviewed and consideredappropriate.ICD codes:CPT4 codes: A: 55753F, 24780v, 52541(4), 47516q, 76693(3) Name Value Range Interpretation Code Description Data Nadira rce(s) Supporting Document(s) ID Date Data Source [id number] 03/04/2020 09:52:00 AM EST [facility] DATE OF EXAMINATION: 03/04/2020 9:04 EST CHEST W/IV CONTRAST HISTORY: Descending colon cancer TECHNIQUE: This CT exam was performed using the following dose reduction techniques:automatic exposure control, adjustment of mA and/or kV according to thepatient's size, and use of iterative reconstruction technique. Standard contiguous axial spiral imaging was obtained from lung apices to thelung bases with intravenous contrast administration and with coronalreformatting. FINDINGS: Lungs: Severe emphysematous changes of both lungs. No focal consolidation ormassPleural space: No pleural effusion or clara sMediastinum: No lymphadenopathy or pericardial effusionBones/joints: Unremarkable Adrenal glands appear normal IMPRESSION: Severe emphysematous changes of both lungs. Electronically signed in PS360 by: Barbara Jones M.D. 03/04/2020 9:46 EST Name Value Range Interpretation Code Description Data Nadira rce(s) Supporting Document(s) ID Date Data Source [id number] 03/04/2020 09:50:00 AM EST [facility] DATE OF EXAMINATION: 03/04/2020 9:04 EST ABD/PEL WITH IV CONTRAST HISTORY: Descending colon cancer TECHNIQUE: This CT exam was performed using the following dose reduction techniques:automated exposure control, adjustment of mA and/or kV according to thepatient's size, and use of iterative reconstruction technique. Standard contiguous axial spiral imaging was obtained from the dome of thediaphragms through the symphysis pubis without oral contrast and withintravenous contrast administration and with coronal reformatting. FINDINGS: Lower thorax: As described on CT scan of the chest ABDOMEN: Liver: U nremarkableGallbladder and bile ducts: CholecystectomyPancreas: UnremarkableSpleen: UnremarkableAdrenals: UnremarkableKidneys and ureters: UnremarkableStomach and bowel: Right hemicolectomy. Mild sigmoid diverticulosis. Some softtissue stranding is seen surrounding the proximal descending colon with a fewsmall nodes external to the serosaAppendix: Right hemicolectomy PELVIS: Bladder: Poorly distended and partially opacified, grossly unremarkableReproductive: Hysterectomy and oophorectomy No free fluid or any lymphadenopathy. IMPRESSION: There is an area of circumferential thickening of the proximal descending colon.There is moderate surrounding soft tissue stranding with a few very small nodes.These findings are suspicious for possible tumor invasion beyond the serosa. Cholecystectomy and right hemicolectomy as well as hysterectomy and bilateraloophorectomy. Mild sigmoid diverticulosis without inflammatory changes. Electronically signed in PS360 by: Barbara Jones M.D. 03/04/2020 9:44 EST Name Value Range Interpretation Code Description Data Nadira rce(s) Supporting Document(s) ID Date Data Source [id number] 03/02/2020 03:28:00 PM EST [facility] Name Value Range Interpretation Code Description Data Nadira rce(s) Supporting Document(s) SARS coronavirus 2 RNA [Presence] in Res piratory specimen by KARLA with probe detection [facility] This lab was ordered by [facility] and reported by [email or web address]. ID Date Data Source [id number] 02/27/2020 02:26:24 PM EST [facility] Name Value Range Interpretation Code Description Data Nadira rce(s) Supporting Document(s) MUSE EKG PDF encoded [facility] EBDTLf0zJcMPXpAnh1HsRgQfPMHfDK5rhjf4V9Q2uPSpE7LyeBWtg8vlQ4AjK4VjJNWlLKTWMD9FcKTr jb2 [file] xA92vTfCgkEhHO8Wn2PS5HaLYYSZk+WVmQauowLUvyq7W6SLLfGceeQIFpov1p8bJLXxJbmN/brand attendant+sv0 [file] BSCgo+HyyajMTmuMipFTNBTDScMIxcSvJzJX5A ID Date Data Source [id number] 02/27/2020 02:26:24 PM EST [facility] Name Value Range Interpretation Code Description Data Nadira rce(s) Supporting Document(s) MUSE EKG PDF encoded [facility] FKETXm8mCqOGDfAtg7RzBtEeMITqPQ9aknb5F6J0uUQxT3UziBYke3vqG0UyY7GcSFWmWBEYQR2IcJVg jb2 [file] 5AGQqmbCBsgaloEYuK48jUd9QLeXcv+VjyQQ/JiHLkbiL0HrnddweafB4TCR5W5DQWEklBb3Fm7Mb+yuan SYBNcep2gvwAmvI6qThq7reUKjr5mW+JUeQ1lW0irvI7X3BAgOilUI2EaE7zTg5UQVHJeSBE5I/t7Fx5 FaUVhgN6wLrV3ySoFWVgOmTwV2u//1f/11c7YDNw2/ XfO//5///B//d/signal technician//mf//5///M//vu/GeBap2A+87//T4qbYc6//itcXCpd+D7HFvfBmyTHF/j4D/Ar v/3yh/WhY5laqm7gZ/QQ7apuLjuO/Innmb/3bqN61N/Rg563bn6y8m845TQXbC/eG+87I9/ifW+6rrd4 XwUGsHjfo/S/9/90U474/6r1igrex95kl/mKTfQDiZ X2usa/utd/+Z/g28a19vazR/J3upow0fi/3vemK/8HDO/1P1x4n+EHC++z/WNexuNc96fI0M3+G64807 0jfyB/IN+J83lwBT6Q+/AT9aDpqx5/SCP/IP9U/sD7jq/qAcZJ0nk+I/btCa1Bzfx8+s/oNV7G+JBGvi PfkY/+PRlYm8Qc/05B12sz8WT2ssO4trwdC/59SCO/ Ib8h3+q27Gq4SJ43geB/kI/3da/x6PG+llKsI5E+xpRj/Nbs3xij7s2jH7/3vcxdv/ckQkW969m8w27s Vc7E+10qwR2e+rPo7E0oz179UE8puOYhvpdykB1bojTgMqvjl/Ybnideg40GA77mIdc/vunKX1+Vs756 ztVqvKxW/X/De5NL55RdbVa+tYIdZl2L2FFqRf/+sG Y0iyNcf1v5bzoaN83IgKGr4n4XHYz/7tmy2sxdE9n8iNNVkuA+7/jxljK5u++7Rui0W2c+jR/l//rz9m rTS5oimOl8x/f868lXs/zf++6l/N/77pVBID+kkb+R/3vf+2y/266jtmc71G1Ty2EeC+Re+4DRTu17PG V/prV8ca3RdmsRLzvmzamcE76S1+CW3878jB+GjYn3 pEtstgmpYkU22hnmoCYb2/Gc+r+c6M/1Oti7HdvnJz1tv2D8El9l/+amrfS/fFsZV+Rf/u8HFel/+b3L VfnXn38/n0h7pX/jt2f5A+X8xm/gOn49ohfDCPms3RA/ZK2gqWpfLOntcIx1MGroy9/mT3ElVWT/eIZk /ziCiPvw4VkjR5ntb+Jf2yq/cC5i05mBH3r/76X8+L 437XVvfN+sa7z+H+4avpdMaiP1l+6N75vp+L83ccH3f+P5N8o/rz+AC2q2o5JGlVCiA71t+YbgFptD3k YzbB1n4x+9YfppL72xhlq1uoW8uizp/TjPQQk02Ue8Bqd+XnojfyO/ik81mNtf+1ffvX/0Rw52EYZ4b/ C7vGddEH6GRM7qd/RA/sD1/pjJ2FC7BR9GO75pblw7 IFja9c4JosG5R/oB93RehV1rpVdlIdqcnirPsKRYtrCx1MC+/X9N+Oqmkd+R35E/kD+H08l9l6rM+Co3 S1PLfjX/XE7hooW/lTTf9RzqTe+H588At64c+Iei6n2NS9lP+lYLVY7iEuZ0/4trJrQ4KmrjDLN4Xg+q 8uZ9WnUvGW6Y+AqRqgetDxBK8ZrV2Kltm/DVTXtdY7 ybaO4eZqglxVfnsM+o1z+wZx9FsDESj7r/z1Xja+6aZ+ZG/qlxMU+Ni/U9fBL+GS/dkN+Qb8jH+F0d+R 35o+fTirb5E61k/ptkVciW8UB3It4hsGPrXuXC+LjxsqyG9WK5eKDUllo1m0EY8crqcU+4vlf/2b3q3Q FxP6Bm6A3KE+XV6fQA8pa7BIpW/T/f9M9k6C/kH+Sf zm758sMCc/V/W5XzYXnCKrX/h0nye1sGbdccwg0K+vPB9xW+0n9E+Gr48hKtSJJj/HlGUv435rom4v5/ F04W+A6PK5c4O9yROi22q7Hvbm9yjWIdRCzR2rEX8tyd1XfZgHn+I38+HBJ+Fa/w4wWiFUlsdzGiW23K f+a7hr9z2e1sxvVhetc440ctkUIyyHitY/iqC19l+e VRYvP26yoFmnq0WG62Jq1Vuw2mY0309ct2Jcjb5BS+o+iIRm198Cbuw1Z0lLp6uI2aT6CdUEJz1PutOz 8I+2OmZG69XT2NjFm+Dz+sgeWGb3kBVjYu6/OH/Uq4vct+dVR+rX+66GIG4WIh0TruwfAEhD4B+ErtbP i+fng5HtBwBexVuANQb1OrQ27Dl3a/tHx65Gv/uDcc YP0404N2obxfmbsqv7LB+6x+HvjqpfH8+5l3Jyg9rE8O+URxEhx1Yvvu6a90aSBZe/JH/1Hy2gkFwgMh G2v4P20ASo4XV6C/kL+Qv5G/lG7kSt5OnMzJpfVWyjB18LD4Q2U27dE4ZzrfWn5cZY/gq2wfr/VvOD7c Cfn82kniXn6Tk0y0sW2kosSg5QWZ2laj/9/tuO0dtr fpr2feiX+q/8/Dm277ecmx+LnP+v/8Vqv6KodlGoTrdbSr1S/3X+2EY4xmvxy5sygy+hu3mwbmA4eUz7 ReKj9wkwcz83Tnf57PGvwhii283N531r+X2m8C2btJsp8aA/X/3cKHpaXY99J+NLtT48o48YiVU/taKH /OvWr3emFJZ8m+BFz40weo+WaHC3mgp4R+4au+yx7b d0d+4au+Hn277shUD/Id+RP5s/kC4DJGsgl775fn7747u6w598C0E/2U/bkUS7x3dr/AAuSFoW2i8+J9 E8787A1DjrIEzU8jxs8Uv7yetyxhiH/B+56Nejeep/aPwjshnz+cEyr9+n+1VoVk66q+QvglvHR//Sq8 CkSrk6RZuEEquThwD+TX/lG4I+T4Cm+XbVQEJ1Fub2 RITN7E0TjCedSwOZcsDnxn/BDy/h7qMSSVno1maA1S6dFGXfFFff7PI8A9pK00zYScNuv8ft2pwi8tto MJepBKC6tdie+q4urx3zj9hT6Gy/2Irt7Yk7HRqtO03r+VchHDI1chv2dVs02j71zcdFG/xRL6CmyTkw xXW2l/OH+k/apFeiJ/4vr1/pHpEyVDTQgDgL1qfJ1t l8ov7kYwXMw7/l7r/fAuuO/ea70/XJ0Yag5bt3W5Qs3AB/jqpt9/eQhfqe/2dq6I0hn2i39f16OAR54p D/5I9Vt9cixS+Jhd7ih68qQueD+U52nIl6NEC/dLivVkD76BEAQ/zmvC/qy2GmF/tkw/+2T0CrI5FRyB 7HNSIfVfbXZqGjRo0qQMW41XLpu6VQfKI5w9ml7Qs4 5b+78D+6Ju5Lb4Ybld2HF5Qpk9B07HWjTHNyMn8iappEL4np+NB79dVwuJXMs6sY+y3vi+ma717/CyTw 4v+6PFnfk7jToZG+DdW+wj5MP79Weted/Y8f1deP+GxK0sxziT+R5rthwf9Kgvxc74QL/wfY5nLiykWC fyJ/RU2lyI9Bi/t06UO3uaJnwWL1T+WpivFsbvwvhd Ll5bxjc8o7x2U/l4X+Grm0b+/P+nUkNjTGsMDgm9QP5z2XSRpBDrppjs7VMOwXDau4z0EBGkyaNtdbYe vgfomB64/9mZ+pEY3yOo1r+93t79R2/IKVb5yp4E62Xw1rqSy3zm8Eb01rC4e+9PH+CPbo+3/Qd793TF DXwDv+1XE/wyTrpQhO7wki19Hy+rbJ8K1L0u0sj402 p4zguKtrM+KF2agn7m/bdGn/+d29Q6V5tQw+J6/H/D+r8cC/wF/gZ/g4/1KhztbH+TKv4pXT28dv9m8X /l9t+vM4V2ue/6Nro8t0Kx54cr4wutVc/AN/D7+x4//vrulueDt/rXFljwc8Bk8Zr4un8n4B62+NL2SZ P+lpo4mL0NcUOf6sdG/AH+BL/8YLPQG3/X/i5tJI02 HJ/9GifHZf/x2z/nOOy/ex31tH/O8da/22i77naIb6+k46n/eem8ZUskW8hM/2pW+hclna9ECxRpmkJ/ 4sxhWAb8o/RQm5KqFdx9w65pio0K5+EI9eawb/4Bnd2Pb5aGzh/16X/lyT/iX9wC95//smxdHs/OZul/ ZyIfjxXvDF8xhEoH+73S/+z2o566wk8T/+ro7Zb+V9 n/8L+w7oEVIg0KAq7RRz+PbPZ+4Ha0SodRTx5jb3nxKcE8fPC20Syjq/s6zinP6GlH73P2+18Z/K9s9n 1KIp2DqQR3y5j1a6zlN7GYe/+zyK7XmL8hduz7tnD6uHiKgoZq3blAqg9naN1T/Tq4R8Ej/5r1/9dsgd /2K7M+7zbr81/D+bIS92VV7ovqYmu9t1bheNM/kfX/ 9KuyCR/X+o7NhwR78UXuZC233FDTR51Fl+N/NaLKf/lZ21Ilk/rbMWUZ/P11SbbvknrEvmpg//pxZ/k3 X/K7p/9VtWc/fy1bbc+x1ee/tnq/p4c0A73y+6Z+leNktz+Z2xYGmkBfekyqvzzMfiGL16S/v0udD+b1 E/OCc4vkN3j4HAKhb1HaH87t5tue+1b+D2bYFnsavv Lv81/q8y2onJ6g3llYn54527c/qV/VNe0/sD9Jk1S81eNN/pae1Ox1cVZ/5ZcEcsozqD7io/x/A983MH +jz/ct+zhpTjFZUQ8TgqQ/zwctWp+3zN9KtwNw2F+bq8n1H4Ij/Gj7c6y64cJ7XNfYE+hXK+1Xt/z0hP W1vrE+GJ8pxwyWls5+/iGWJ78y15FK1rN7Pv0Ql0Il e9618d66o+S5jwgehT/LZAeWsdZYshD3vlitV6aD9JO0eMoarvUsl3hA3j3C5x/Of3+l/nkRvj4p4COv f+G5C/z2F13S/kEQ1Y2qR9P0ky2Lg7jf5yf4IZ7jG2t7t/N9U7+6ZfAH+IJ5vgkotU7bfwnFLp86Ju9F f4O/we/1ecG/fWmg/dH9NvC+8G9fo/cLa/R+YY3Wn9 mcdonough+eysD5Vk/XnNSbqwfum/1Vd0/pNxa9Ezun+z981ev+9Ny8Wedm0zgBz/pZ/n8VcciiD/ar6YUp/92 O/crAsC23dc659k8B0kQw/E/N3Ws/HaT0f5+rvMhfag/Yl9tlkb7m/yjky/btfv7w3R3+kqjE6JC7cm2 /EGBjekWU79mSy7wRdZjv69AO7/Z7JhgaFE5J3acas 1Dp+AEv7z3oGb2qZs/K7W+8Hl/V+eEbLD5909fwlY/jtb7ZW+/Mn2o4of/X/xV4ZU2OgpIzJ10RW2jre V9whGWmG7M9N7/02lg7w5jzeb33V6hh7B269q9/V+vNarW+s1K+yvNvevvYHfvtfLfhfLfhfrbJfZbnP Y0xbv1NM6smsp/UxfqIrLii6c0LaA4+7V5af/rZ2+5 st+Lcv+F+q0dhY6dG9vOgBg6I/4/cbfbnZuD828El/znHox/5b05n92KDDH/05v7W3/ho11cdjW/tzjs +ffvV3/WmPH/052+b78AjCv/6ca6Yf/TnXHz/25/ymvt/+jEhFCtxfn27w4pwn5x3HN7tlm0Y0y3e6u+ dzo/0ZVrQ/8Iq2P6/2j91wk9dhgf8l2ovQ298+D13R 6BFpLC4p8BYG26Mz7hlcV/iO9+a09We65niI/KF9id96z5ERz1ai4VYNq0/5h7fmr9ht62uc7clu9/0Z nmuof+Z0Aa7F8wrkYqz+7ftz1B+op/e/Z9lvpHK+nBgsK9b3ufrfi3cn1Q7X7nU7f3oy297yM60kH93x y8L1C/U4372c4ByRH4w17gL+wFv6/Hdr25+3tj/hrv jBKoPf+sbWttftPB+ReGvDz8mG8Pq1Wg3Lu1Fj2B/wN/dmk9alj6Ukj0cu+08w6Kw2uC37V+sOhvt0Lb 2iZenpS8au5/JE/JI98IIll9asQiPY+Dv75w10z8f/44C2ek43O++PdtmvTnni+31lJ57XA+7Z+uSeCr 6Cj+878X1n+5ej1K54/Ux72zi89Ey5QdD5+Fm7Su7N 3vt8Zxp0k6h11nf4XAkni98pe228A/tvbMQPbsQPbsQPbpvgG/h4X/z9e7tn32Y9RduVkyQV+Uy062S4 XR/2iG82K69y4nK+G3th/q62t+16xTu8My7YtAC+8Eu+9fhcrT/j9wtsRs5u3quewUyvdNenngm5azLx 3u/v/SMtBF3303l9nolT+MGcdxk/jJSdokHNuqw2k+ 89wTdcj/y488yJ8Y9lW2b7/mjvjg/du+2TG/arjfjBvfH/4lMwr5w//754iZezktB8CE+A3/q97O6r0m 5Pk3NamA39Vnr3/8ZG/ODO+NZX1Qi0hlT3Yd8+pv0nN/IdFTfbaC71l1Wj6Hb83s+yA++b+hJsnh2ruA njmdynY1LruI/pA25Yh4515Ou3ht9l200cn/q353tF 1hc51vh8QjICptwYE92X4iqkKF50Ga8myor6/KBn/KDmNUd/PnqCZ/faahmd5GYbkS6nbcldmq+O7cd+ Nb6ss/03/Uiz9uwsd/3qtme/8yCH/rlZo0k2Nwxg/Ea5hn6hk8kdeYfUro/z9G8/76BCrd9eO/92Tb6C f/Det337+rdnf8K/6qB7pJ7iZ0ur/ORvJc8UY8+q8g Z/W7e5/Rlc+da75Fp80couxS/l9dr+wI74Qc/1qkicfS21ir3q/2T8YF0/uv3a+wVP/4oXrfyhxGgQ2b 6Of57D55/Us1F/lm9R3kjsdGIto+Io0606hL+Kj56/Pnr+rczdua8S67297Ikd/N7v+5jgT/Dbf8NH+0 /6wPsOfN+O7enxikG+VfX0/qaV0gc59GhIS97DH/vH +mz/WJ+9P/LZ/s8+FfWM9x/80ni9Sh6WG7mZ+Ah1wC4Bs0E/wn4UrMm19kcx5+fdPnu/77QfSgi8zo8x /TvkEx00m0j6P+4L6ZP2Op7Ta8J/u/7CD0ZbK1GxF6HaE6Rq/89lj2s6AwjY38ddjBk84Gox//az061V fgZf+L6r/Ev61Arzt/DW3oMbC204FADKzsTzM0/AX+ D3+a+vPv/6gdPvTgpn7G+8V+8Hfbf/s+8+L3P4X/lufzPfmL+IH3TED/ru+F+H/5Xv3u/7qbadv2Pb06 7hG++725/fU7+pFn677htrK/9q7ia73F/sHZuj8CixlYmM8/r1i6t5QZK8kL/hf+Xe/jnuGM/e+1/3ts e6t/7s3vqz+wYf/9+3D05lly9/RmoodNdwMqz1kgt+ Vw7/K4f/kWero3q1zMbH/8rhf+Qh1Fc4z0W0rj2c6RI2bs1Ih+05Hu0/6dH+hd14Q0Q/j+Jrf9HI+MGj +0WSU79kQ53jJt8f0EjosQgMoRD2dS/cpzy/ptx0cbu4EZ++qV2fb4UQ/5Z9Ndb40x3OU2yAM0j3cDay tN1bOsjHOVHkvfG0E+v1KIZ9sSsN/IHrh/Z5A2e6jl aRpwiD8V59re3/GBU/yGE45YsH/GBk/NDbdfFi2x95zSK/o/mqIJvVohcukUXcoNBYJ7Ks6Uw+sK7XZ5 eXnw31uudLgm01xizn+duCugqty4l+nPWn/nzafPyvpOo5+nNds9/+EcU7DOWSF73X773V6h2+xnlo59 +I1K+vjl9xYt6W7gpkP5t6K42tflkm/n4c3BdB3b8b kyq6Ed7tJwliie8wnLymiS980k+03go3kPofSeNWtq28yGD4o4coF1mYL9gmC+N5Yjxn/OAtg6/gY/7O 8lsL3eQ/MXu/Magdalene/OJKf/dkKxf6l5anH/gZ/g4/vsPWC1KuF89u6Dueg5O9Gao4wVdy3C/r2521fc9Jk [file] [id number]= ID Date Data Source [id number] 02/27/2020 02:18:00 PM EST [facility] ([facility]) Name Value Range Interpretation Code Description Data Nadira rce(s) Supporting Document(s) Blood type and Indirect antibody screen panel - Blood Laboratory test result [facility] ([facility]) SPEC EXP DATE 03/08/2020 PATIENT ABO/Rh O POSITIVE ANTIBODY SCREEN NEGATIVE TESTING SITE PERFORMED AT [address] [place] [address] BLOOD BANK COMMENT BLOOD TYPE CONFIRMED. Carcinoembryonic Ag [Mass/volume] in Serum or Plasma 5.9 ng/mL 0.0-1 0.1 [facility] ([facility]) CEA REFERENCE RANGE: NON-SMOKERS 0.0 - 5.0 NG/ML SMOKERS 0.0 - 10.1 NG/ML SERUM CEA LEVEL SHOULD NOT BE INTERPRETED ABSOLUTE EVIDENCE FOR THE PRESENCE OR ABSENCE OF MALIGNANCY. METHOD IS [facility] [employer] XPT CHEMILUMINOMETRIC IMMUNOASSAY. VALUES OBTAINED WITH DIFFERENT ASSAY METHODS OR KITS CANNOT BE USED INTERCHANGEABLY. ID Date Data Source [id number] 02/27/2020 02:18:00 PM EST [facility] ([facility]) Name Value Range Interpretation Code Description Data Nadira rce(s) Supporting Document(s) aPTT in Platelet poor plasma by Coagulation assay 27.5 s 22.0-34. 3 [facility] ([facility]) PERFORMED AT [address] [place] [address] ID Date Data Source [id number] 02/27/2020 02:18:00 PM EST [facility] ([facility]) Name Value Range Interpretation Code Description Data Nadira rce(s) Supporting Document(s) Sodium [Moles/volume] in Serum or Plasma 141 mmol/L 136-145 [facility] ([facility]) Carbon dioxide, total [Moles/volume] in Serum or Plasma 28 mmol/L 22 -31 [facility] ([facility]) Chloride [Moles/volume] in Serum or Plasma 107 mmol/L 100-108 [facility] ([facility]) Potassium [Moles/volume] in Serum or Plasma 4.2 mmol/L 3.6-5.2 [facility] ([facility]) Anion gap 3 in Serum or Plasma 6 mmol/L 7-16 Below low normal [facility] ([facility]) Creatinine [Mass/volume] in Serum or Plasma 0.70 mg/dL 0.60-1.00 [facility] ([facility]) Urea nitrogen [Mass/volume] in Serum or Plasma 7 mg/dL 7-24 [facility] ([facility]) Urea nitrogen/Creatinine [Mass Ratio] in Serum or Plasma 10.0 RATIO 10.0-20.0 [facility] ([facility]) Calcium [Mass/volume] in Serum or Plasma 9.9 mg/dL 8.4-10.2 [facility] ([facility]) Glucose [Mass/volume] in Serum or Plasma 85 mg/dL 70-99 [facility] ([facility]) Glomerular filtration rate/1.73 sq M.pre dicted [Volume Rate/Area] in Serum or Plasma by Creatinine-based formula (MDRD) Laboratory test result [facility] ([facility]) Laboratory test finding (navigational concept) Laboratory test result [facility] ([facility]) <content> </content>
<content>IDA L KIDNEY FUNCTION</content>
<content>OR MILD DISEASE - GFR >OR= 60</content>
<content>CHRONIC KIDNEY DISEASE - GFR 15 - 59</content>
<content>RENAL FAILURE - GFR <15</content>
<content> </content>< br/><content>Est. GFR calculation based on the MDRD</content>
<content>study equation, which assumes a steady</content>
<content>state for creatinine. Est. GFR should not</content>
<content>be used for medication dosing.</content>
<content></content> Glomerular filtration rate/1.73 sq M pre dicted among blacks [Volume Rate/Area] in Serum or Plasma by Creatinine-based formula (MDRD) Laboratory test result [facility] ([facility]) ID Date Data Source [id number] 02/27/2020 02:18:00 PM EST [facility] ([facility]) Name Value Range Interpretation Code Description Data Nadira rce(s) Supporting Document(s) Leukocytes [#/volume] in Blood by Automated count 6.4 10*3/uL 4.1-11. 0 [facility] ([facility]) Hemoglobin [Mass/volume] in Blood 14.4 g/dL 12.0-16.0 [facility] ([facility]) Erythrocytes [#/volume] in Blood by Automated count 4.53 10*6/uL 4.00 -5.40 [facility] ([facility]) Erythrocyte mean corpuscular hemoglobin [Entitic mass] by Automated count 31.9 pg 27.0-32.0 [facility] ([facility]) Hematocrit [Volume Fraction] of Blood by Automated count 43.0 % 3 6.0-47.0 [facility] ([facility]) PERFORMED AT [address] [place] [id number] Erythrocyte mean corpuscular volume [Entitic volume] by Auto mated count 94.9 fL 80.0-95.0 [facility] ([facility]) Platelets [#/volume] in Blood by Automated count 314 10*3/uL 150-450 [facility] ([facility]) Erythrocyte distribution width [Ratio] by Automated count 12.8 % 10.5-14.5 [facility] ([facility]) Erythrocyte mean corpuscular hemoglobin concentration [Mass/volume] by Automated count 33.6 g/dL 32.0-36.0 [facility] ([facility]) Platelet mean volume [Entitic volume] in Blood by Automated count 8.1 fL 7.1-10.7 [facility] ([facility]) ID Date Data Source [id number] 02/27/2020 06:34:29 PM EST [facility] Name Value Range Interpretation Code Description Data Nadira rce(s) Supporting Document(s) CEA @ 5.9 ng/mL (0.0-10.1) [facility] VICTORINO CEA REFERENCE RANGE: NON-SMOKERS 0.0 - 5.0 NG/ML SMOKERS 0.0 - 10.1 NG/MLSERUM CEA LEVEL SHOULD NOT BE INTERPRETEDAS ABSOLUTE EVIDENCE FOR THE PRESENCEOR ABSENCE OF MALIGNANCY. METHODIS ADVIA [employer] XPT CHEMILUMINOMETRICIMMUNOASSAY. VALUES OBTAINED WITHDIFFERENT ASSAY METHODS OR KITS CANNOTBE USED INTERCHANGEABLY. ID Date Data Source [id number] 02/27/2020 03:32:08 PM EST [facility] ROSA ISELA SPEC EXP DATE 03/08/2020PATI ENT ABO/Rh O POSITIVEANTIBODY SCREEN NEGATIVETESTING SITE PERFORMED AT [address] [facility] [id number] BANK COMMENT BLOOD TYPE CONFIRMED. Name Value Range Interpretation Code Description Data Nadira rce(s) Supporting Document(s) ID Date Data Source [id number] 02/27/2020 03:14:55 PM EST [facility] Name Value Range Interpretation Code Description Data Nadira rce(s) Supporting Document(s) APTT 27.5 s (22.0-34.3) [facility] PERFORMED AT [address] [facility] [id number] ID Date Data Source [id number] 02/27/2020 03:11:23 PM EST [facility] Name Value Range Interpretation Code Description Data Nadira rce(s) Supporting Document(s) SODIUM 141 mmol/L (136-145) [facility] POTASSIUM 4.2 mmol/L (3.6-5.2) [facility] CHLORIDE 107 mmol/L (100-108) [facility] CO2 28 mmol/L (22-31) [facility] ANION GAP 6 mmol/L (7-16) L [facility] UREA NITROGEN 7 mg/dL (7-24) [facility] CREATININE 0.70 mg/dL (0.60-1.00) [facility] BUN/CREAT RATIO 10.0 RATIO (10.0-20.0) [facility] GLUCOSE 85 mg/dL (70-99) [facility] CALCIUM 9.9 mg/dL (8.4-10.2) [facility] GFR >60 ml/min/1.73m2 (>59) [facility] GFR ( AMER) >60 ml/min/1.73m2 (>59) [facility] GFR INTERPRETATION [facility] --NORMAL KIDNEY FUNCTION OR MILD DISEASE - GFR >OR= 60CHRONIC KIDNEY DISEASE - GFR 15 - 59RENAL FAILURE - GFR <15 Est. GFR calculation based on the MDRDstudy equation, which assumes a steadystate for creatinine. Est. GFR should notbe used for medication dosing. ID Date Data Source [id number] 02/27/2020 02:54:46 PM EST [facility] NATARAJAN Name Value Range Interpretation Code Description Data Nadira rce(s) Supporting Document(s) WBC 6.4 10*3/uL (4.1-11.0) [facility] RBC 4.53 10*6/uL (4.00-5.40) [facility] HGB 14.4 g/dL (12.0-16.0) [facility] HCT 43.0 % (36.0-47.0) [facility] PERFORMED AT [address] [facility] [address] MCV 94.9 fL (80.0-95.0) [facility] MCH 31.9 pg (27.0-32.0) [facility] MCHC 33.6 g/dL (32.0-36.0) [facility] RDW 12.8 % (10.5-14.5) [facility] PLT 314 10*3/uL (150-450) [facility] MPV 8.1 fL (7.1-10.7) [facility] ID Date Data Source [id number] 02/15/2020 05:06:22 PM EST [facility] [address] [address]Gry# Surgical Pathology ReportAccession #:[id number](s) ReceivedA: Descending colon polypB: Descending colon massC: Rectal polypsClinical Diagnosis and HistoryPostop dx = colon polyps/hx of colon cancerDIAGNOSISA. COLON, DESCENDING, POLYP, POLYPECTOMY: TUBULAR ADENOMA, 1.5 X 0.7 X 0.5 CM.B. COLON, DESCENDING, MASS, BIOPSY: POORLY DIFFERENTIATED ADENOCARCINOMA WITH MUCINOUS FEATURES.C. RECTUM, POLYPS, BIOPSY: TUBULOVILLOUS ADENOMA AND TUBULAR ADENOMA. SEPARATE FRAGMENT OF POORLY DIFFERENTIATED ADENOCARCINOMA, SEECOMMENTS.CommentsAccording to the procedure note, the patient has a history of Lynchsyndrome. The fragment of adenocarcinoma in the "rectal polyps" biopsy(part C) is morphologically similar to the tumor in the "descending colonmass" biopsy (part B). This fragment is likely residual tissue from partB. Clinical and colonoscopic correlation is necessary. Gross DescriptionPart A. Received in formalin labeled "descending colon polyp" is a 1.5 x0.7 x 0.5 cm red lobulated polypoid fragment of tissue. Seriallysectioned and entirely submitted as A1. 1 + 1. Part B. Received in formalin labeled "descending colon mass" are multipletan-pink irregular fragments of tissue ranging from 0.2 to 0.3 cm. Entirely submitted as B1. 1 + 1. Part C. Received in formalin labeled "rectal polyps" are three ferreira-pinkpolypoid fragments of tissue ranging from 0.3 to 0.9 cm. The largerfragment is inked blue along the presumed point of attachment andtrisected. The specimen is entirely submitted as C1. 1 + 1. jglmejia/hemanth Reported: 02/15/2020Electronically Signed Out By Jordon Astudillo MD [facility] [place] [id number] component performed at [facility], Histopathology, [address] [place] [address], [phone].Reported at [facility], [address] [place] [address], [address]. This report may includeimmunohistochemical or in-situ hybridization results. Testing wasdeveloped and the performance characteristics determined by [facility] as required by CLIA '88. The FDA hasdetermined that approval for specific use is not necessary for clinicaluse. The quality of Hematoxylin and Eosin stains and as applicable, forall immunohistochemical and/or special stains, including positive andnegative controls, were reviewed and considered appropriate.ICD codes D12.6 C18.6CPT codesA: 68606DT: 53991IJ: 18739S Name Value Range Interpretation Code Description Data Nadira rce(s) Supporting Document(s) ID Date Data Source [id number] 02/09/2020 10:39:07 AM EST [facility]annerPATIE NT INFORMATIONPatient MRN Name Date of Age Gend*PT [id number] Jose Puentes 1960 59 years F OPPT Location Admission Date/Time [facility] 0828 --- Yanni José MD([id number]) EPI ID CSN Admitting Provider [id number] Yanni José MD([id number])Colonoscopy Procedure NotePatient: Jose PatterSurgery Date: 02/09/2020Surgeon(s):DEANDRE Flowersre-operative Diagnosis:Change in bowel habit [R19.4]Personal history of colonic polyps [Z86.010]Lynchsyndrome [Z15.09]Post-Op Diagnosis Codes: * 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 Patient appeared to understand the benefits and risksof this procedure. Informed consent was obtained from the patient afterproviding opportunity for questions.Procedure Details:The patient was monitored per endoscopy protocol. The patient was placed in theleft lateral decubitus position. Digital rectal examination was performed,findings: none. The colonoscope was inserted into the rectum and advanced underdirect visualization to the ileocolic anastomosis, a pediatric scope was used.The quality of the colonic preparation was excellent. A careful inspection wasmade as the colonoscope was withdrawn, including an extended view of the rectum.After completion of the examination, the patient was transferred t o the recoveryroom.* No implants in log *Findings:Descending Colon: large polyp, snared and then a mass just proximal to this inwhat appeared to be mid descending colon. Mass was biopsied and just past thesite of these both, tatoo placed. Ileocolic anastomosis seen and no recurrence.Large rectal polyp noted distal to first valve and a small polyp next to it,both snared.Specimens:ID Type Source Tests Collected by Time DestinationA : DESCENDING COLON POLYP Tissue Tissue SURGICAL PATHOLOGY EXAM MD Urvashi 02/09/2020 1016B : DESCENDING COLON MASS Tissue Tissue SURGICAL PATHOLOGY EXAM Yanni José MD 02/09/2020 1018C : RECTAL POLYPS Tissue Tissue SURGICAL PATHOLOGY EXAM Yanni José MD02/09/2020 1027Grafts/Implants:NoneComplications: None; patient tolerated the procedure well.Estimated Blood Loss: noneImpression:-See post-procedure diagnoses.Recommendations:-Needs surgical resectionYanni José MD02/09/202010:33 AM Name Value Range Interpretation Code Description Data Nadira rce(s) Supporting Document(s) ID Date Data Source [id number] 02/06/2020 09:42:[address] [facility] [address] LOW DOSE FOR LUNG CANCER SCREENING [id number] RESULTInterpreted by:Silvano Jj MDINDICATION: Lung cancer screening.TECHNIQUE: CT thorax without contrast. 5 mm and 1 mm thick sections were made using low-dose helical technique from lung apices through lung bases. Intravenous contrast was not administered.Automated dose lowering techniques and/or adjustment according to patient size were utilized for this exam.Comparison: Comparison is made to low- dose CT 01/14/2019FINDINGS: For this examination, volume CTDI was 1.63 mGy, and dose-length product was 64 mGy-cm. The scan length was 318 mm. The scan duration was 11 seconds.Lungs and pleura: Severe emphysematous changes are seen. There is a stable intraparenchymal lymph node in the left major fissure. There is a new 3 mm nodule in the lingula (series 6 image 127).Heart and pericardium: Heart size is normal. No pericardial effusion.Vessels: Moderate atherosclerotic changes in the aorta and coronary arteries.Mediastinum and oni: Unremarkable. Chest wall and lower neck: Unremarkable.Abdomen: Cholecystectomy clip is seen. There is a tiny hiatal hernia.Bones: Degenerative changes in the thoracic spine. IMPRESSION: New 3 mm nodule in the lingula.Lung-RADS Assessment Category: 2, Nodules with a very low likelihood of becoming a clinically active cancer due to size or lack of growthManagement Recommendation: Continue with annual screening using low-dose chest CT in 12 monthsModifier S: Moderate atherosclerotic calcifications in the aorta and coronary arteriesThis document has been electronically signed by Silvano Jj MD on 02/06/2020 9:40 AM Name Value Range Interpretation Code Description Data Nadira rce(s) Supporting Document(s) ID Date Data Source [id number] 02/04/2020 10:00:00 AM EST [facility] ([facility]) Name Value Range Interpretation Code Description Data Nadira rce(s) Supporting Document(s) Coronavirus 2019 Nasopharygeal Laboratory test result [facility] ([facility]) This nucleic acid amplification test was developed and its performance characteristics determined by [employer]. Nucleic acid amplification tests include PCR and TMA. This test has not been FDA cleared or approved. This test has been authorized by FDA under an Emergency Use Authorization (EUA). This test is only authorized for the duration of time the declaration that circumstances exist justifying the authorization of the emergency use of in vitro diagnostic tests for detection of SARS-CoV-2 virus and/or diagnosis of COVID-19 infection under section 564(b)(1) of the Act, 21 U.S.C. 360bbb-3 (b) (1), unless the authorization is terminated or revoked sooner. When diagnostic testing is negative, the possibility of a false negative result should be considered in the context of a patient's recent exposures and the presence of clinical signs and symptoms consistent with COVID-19. An individual without symptoms of COVID-19 and who is not shedding SARS-CoV-2 virus would expect to have a negative (not detected) result in this assay. Performed at: [facility] [id number] [employer]: Obdulia Bryan MD, Phone: [phone] Not Detected ID Date Data Source [id number] 02/04/2020 10:00:00 AM EST [facility] Name Value Range Interpretation Code Description Data [facility] rce(s) Supporting Document(s) SARS coronavirus 2 RNA [facility] This lab was ordered by [facility] and reported by [facility]. ID Date Data Source [id number] 02/04/2020 08:44:00 AM EST [facility] ([facility]) Name Value Range Interpretation Code Description Data Nadira rce(s) Supporting Document(s) Thyrotropin [Units/volume] in Serum or Plasma by Detec tion limit <= 0.05 mIU/L 2.70 uIU/mL 0.36-3.74 [facility] ([facility] ) ID Date Data Source [id number] 02/04/2020 08:44:00 AM EST [facility] Name Value Range Interpretation Code Description Data Nadira rce(s) Supporting Document(s) Urea nitrogen [Mass/volume] in Serum or Plasma 7 mg/dL 7-18 [facility] ([facility]) Glucose [Mass/volume] in Serum or Plasma 84 mg/dL 74-99 [facility] ([facility]) 100-125 mg/dL PRE-DIABETES/FASTING >126 mg/dL DIABETES/FASTING Sodium [Moles/volume] in Serum or Plasma 144 meq/L 136-145 [facility] ([facility]) Potassium [Moles/volume] in Serum or Plasma 4.1 meq/L 3.5-5.1 [facility] ([facility]) Creatinine 0.7 mg/dL 0.6-1.3 [facility] Calcium [Mass/volume] in Serum or Plasma 9.7 mg/dL 8.5-10.1 [facility] ([facility]) Carbon dioxide, total [Moles/volume] in Serum or Plasma 29 meq/L 21 -32 [facility] ([facility]) Chloride [Moles/volume] in Serum or Plasma 105 meq/L 98-107 [facility] ([facility]) Glomerular filtration rate/1.73 sq M pre dicted among non-blacks [Volume Rate/Area] in Serum or Plasma by Creatinine-based formula (MDRD) Laboratory test result [facility] Glomerular filtration rate/1.73 sq M pre dicted among blacks [Volume Rate/Area] in Serum or Plasma by Creatinine-based formula (MDRD) Laboratory test result [facility] <content>CHRONIC KIDNEY DISEASE STAGING PER NKF</content>
<content></content>
<content>STAGE I & II GFR >= 60 NORMAL TO MILDLY DECREASED</content>
<content>STAGE III GFR 30-59 MODERATELY DECREASED</content>
<content>STAGE IV GFR 15-29 SEVERELY DECREASED</content>
<content>STAGE V GFR <15 VERY LITTLE GFR LEFT</content>
<content>ESRD GFR <15 ON NEWSPAPER ILLUSTRATOR</content>
<content></content> ID Date Data Source [id number] 02/04/2020 08:44:00 AM EST [facility] ([facility]) Name Value Range Interpretation Code Description Data Nadira rce(s) Supporting Document(s) Leukocytes [#/volume] in Blood by Automated count 6.8 x10*3/UL 4.1-10 .9 [facility] ([facility]) Erythrocytes [#/volume] in Blood by Automated count 4.62 x10*6/UL 4.2 0-6.30 [facility] ([facility]) Hemoglobin [Mass/volume] in Blood 15.0 g/dL 12.0-18.0 [facility] ([facility]) Hematocrit [Volume Fraction] of Blood by Automated count 42.1 % 3 7.0-51.0 [facility] ([facility]) MCH 32.5 pg 26.0-32.0 [facility] [facility]) MCV 91.2 fL 80.0-97.0 [facility] ([facility] [facility]) MCHC 35.7 g/dL 31.0-38.0 [facility] ([facility]) Erythrocyte distribution width [Ratio] by Automated count 12.5 % 11.6-13.7 [facility] ([facility]) Platelets [#/volume] in Blood by Automated count 336 x10*3/UL 140-440 [facility] ([facility]) MPV 8.0 FL 7.8-11.0 [facility] ([place] [facility]) Mid % 5.7 % 1.7-9.3 [facility] ([place] [facility]) Lymph % 24.5 % 10.0-58.5 [facility]) Lymph # 1.6 x10*3/UL 0.6-4.1 [facility] ([facility]) Mid # 0.5 x10*3/UL 0.1-0.6 [facility] ([facility]) Neut % 69.8 % 37.0-92.0 [facility]) Neut # 4.7 x10*3/UL 2.0-7.8 [facility] ([facility]) ID Date Data Source [id number] 12/15/2019 09:08:00 AM EDT [facility] ([facility] ) Name Value Range Interpretation Code Description Data Nadira rce(s) Supporting Document(s) Thyroxine (T4) free [Mass/volume] in Serum or Plasma by Dialysis 1. 7 ng/dL [facility] ([facility] ) This test was developed and its performa nce characteristics determined by [facility]. It has not been cleared or approved by the Food and Drug Administration. Reference Range: Pubertal Children and Adults: 0.8 - 1.7 Performed at: [facility] [address] [place] [id number] [employer]: Betito Walton MD, Phone: [phone] Thyrotropin [Units/volume] in Serum or Plasma by Detec tion limit <= 0.05 mIU/L 7.470 uIU/ML 0.358-3.740 [facility] ([facility]) Thyroxine (T4) free [Mass/volume] in Serum or Plasma 1.75 ng/dL 0.76- 1.46 [facility] Procedure Social History Code Duration Value Status Description Data Source(s ) Smoking 02/04/2021 12:00:00 AM EDT Patient is a former smoker completed Patient is a former smoker [facility] ([facility] ) Smoking 09/27/2020 12:00:00 AM EDT Patient is a former smoker completed Patient is a former smoker [facility] ([facility], [facility]) Alcohol intake 02/09/2020 12:00:00 AM EST Never completed [facility] Smoking 02/09/2020 12:00:00 AM EST Former smoker completed Former smoker [facility] Vital Signs ID Date Data Source [id number] Name Value Range Interpretation Code Description Data Source(s) Systolic blood pressure 111 mm[Hg] 111 mm[Hg] M [facility] ([facility]) Diastolic blood pressure 80 mm[Hg] 80 mm[Hg] [facility] ([facility]) Heart rate 117 /min 117 /min [facility] ([facility]) Body temperature 98.4 [degF] 98.4 [degF] [facility] ([facility]) Respiratory rate 12 /min 12 /min [facility] ( [facility]) Body height 63 [in_i] 63 [in_i] [facility] ([facility]) 5'3" Body weight 149.00 [lb_av] 149.00 [lb_av] [facility] T ([facility]) Body mass index (BMI) [Ratio] 26.4 kg/m2 26.4 k g/m2 [facility] ([facility]) Body mass index (BMI) [Ratio] 17.7 kg/m2 17.7 k g/m2 [facility] ([facility]) [place] body weight 115 [lb_av] 115 [lb_av] [facility] T ([facility]) Body weight 45.360 kg 45.360 kg [facility] ([facility]) Body surface area Derived from formula 1.44 m2 1.44 m2 [facility] ([facility]) Systolic blood pressure 102 mm[Hg] 102 mm[Hg] M EDENT ([facility]) Diastolic blood pressure 80 mm[Hg] 80 mm[Hg] [facility] ([facility]) Heart rate 126 /min 126 /min [facility] ([facility]) Oxygen saturation in Arterial blood by Pulse oximetry 97 % 97 % [facility] ([facility]) Body height 63 [in_i] 63 [in_i] [facility] ([facility]) 5'3" Body weight 100.00 [lb_av] 100.00 [lb_av] [facility] T ([facility]) [place] body weight 115 [lb_av] 115 [lb_av] [facility] T ([facility]) Body height 63 [in_i] 63 [in_i] [facility] ([facility]) 5'3" Body weight 45.814 kg 45.814 kg [facility] ([facility]) Body surface area Derived from formula 1.45 m2 1.45 m2 [facility] ([facility]) Oxygen saturation in Arterial blood by Pulse oximetry 97 % 97 % [facility] ([facility]) Body weight 101.00 [lb_av] 101.00 [lb_av] [facility] T ([facility]) Body mass index (BMI) [Ratio] 17.9 kg/m2 17.9 k g/m2 [facility] ([facility]) Systolic blood pressure 122 mm[Hg] 122 mm[Hg] [facility] ([facility]) Diastolic blood pressure 88 mm[Hg] 88 mm[Hg] [facility] ([facility]) Heart rate 95 /min 95 /min [facility] ([facility]) Systolic blood pressure 124 mm[Hg] 124 mm[Hg] [facility] ([facility]) Diastolic blood pressure 70 mm[Hg] 70 mm[Hg] [facility] ([facility]) Heart rate 94 /min 94 /min [facility] ([facility]) Body weight 110.31 [lb_av] 110.31 [lb_av] [facility] T ([facility]) Oxygen saturation in Arterial blood by Pulse oximetry 98 % 98 % [facility] ([facility]) Oxygen saturation in Arterial blood by Pulse oximetry 95 % 95 % [facility] ([facility], [facility]) Systolic blood pressure 103 mm[Hg] 103 mm[Hg] [facility], [facility]) Body temperature 98.2 [degF] 98.2 [degF] [facility] ([facility], [facility]) Diastolic blood pressure 73 mm[Hg] 73 mm[Hg] [facility] ([facility], [facility] [facility]) Body weight 120.00 [lb_av] 120.00 [lb_av] MEDEN T ([facility], [facility]) Body height 64 [in_i] 64 [in_i] [facility], [facility]) 5'4" Heart rate 94 /min 94 /min MEDENT ([facility], [facility]) Respiratory rate 20 /min 20 /min MEDENT ( [facility], [facility]) Body mass index (BMI) [Ratio] 20.6 kg/m2 20.6 k g/m2 MEDENT ([facility], [facility]) Body temperature 96.6 [degF] 96.6 [degF] MEDENT ([facility], [facility]) Body weight 120.00 [lb_av] 120.00 [lb_av] MEDEN T ([facility], [facility]) Systolic blood pressure 116 mm[Hg] 116 mm[Hg] M EDENT ([facility], [facility]) Diastolic blood pressure 80 mm[Hg] 80 mm[Hg] MEDENT ([facility], [facility]) Heart rate 85 /min 85 /min MEDENT ([facility], [facility]) Respiratory rate 14 /min 14 /min MEDENT ( [facility], [facility]) Oxygen saturation in Arterial blood by Pulse oximetry 98 % 98 % MEDENT ([facility], [facility]) Body height 64 [in_i] 64 [in_i] MEDENT ([facility], [facility]) 5'4" Body mass index (BMI) [Ratio] 20.6 kg/m2 20.6 k g/m2 MEDENT ([facility], [facility]) Diastolic blood pressure 60 mm[Hg] 60 mm[Hg] MEDENT ([facility] ) Heart rate 76 /min 76 /min MEDENT ([facility] ) Body weight 124.50 [lb_av] 124.50 [lb_av] MEDEN T ([facility] ) Body mass index (BMI) [Ratio] 21.4 kg/m2 21.4 k g/m2 MEDENT ([facility] ) Systolic blood pressure 90 mm[Hg] 90 mm[Hg] M EDENT ([facility] ) Body temperature 97.4 [degF] 97.4 [degF] MEDENT ([facility] ) Body height 64 [in_i] 64 [in_i] MEDENT ([facility] ) 5'4" Heart rate 98 /min 98 /min MEDENT ([facility]) Body mass index (BMI) [Ratio] 23.9 kg/m2 23.9 k g/m2 MEDENT ([facility]) Diastolic blood pressure 62 mm[Hg] 62 mm[Hg] MEDENT ([facility]) Body height 62.5 [in_i] 62.5 [in_i] MEDENT ([facility]) 5'2.50" Systolic blood pressure 94 mm[Hg] 94 mm[Hg] M EDENT ([facility]) Body weight 133.00 [lb_av] 133.00 [lb_av] MEDEN T ([facility]) Oxygen saturation in Arterial blood by Pulse oximetry 93 % 93 % [facility] Heart rate 83 /min 83 /min [facility] ([facility], [facility]) Diastolic blood pressure 84 mm[Hg] 84 mm[Hg] [facility] ([facility], [facility]) Body height 64 [in_i] 64 [in_i] [facility] ([facility], [facility]) 5'4" Systolic blood pressure 127 mm[Hg] 127 mm[Hg] [facility], [facility]) Respiratory rate 13 /min 13 /min [facility] ( [facility], [facility]) Oxygen saturation in Arterial blood by Pulse oximetry 98 % 98 % [facility] ([facility], [facility]) Body temperature 97.8 [degF] 97.8 [degF] [facility] ([facility], [facility]) Body weight 141.00 [lb_av] 141.00 [lb_av] MEDEN T ([facility], [facility]) Body mass index (BMI) [Ratio] 24.2 kg/m2 24.2 k g/m2 [facility] ([facility], [facility]) Body height 64 [in_i] 64 [in_i] MEDENT ([facility] ) 5'4" Systolic blood pressure 110 mm[Hg] 110 mm[Hg] [facility] Diastolic blood pressure 70 mm[Hg] 70 mm[Hg] MEDENT ([facility] ) Body weight 141.25 [lb_av] 141.25 [lb_av] MEDEN T ([facility]) Heart rate 81 /min 81 /min MEDENT ([facility]) Body temperature 97.3 [degF] 97.3 [degF] MEDENT ([facility]) Body mass index (BMI) [Ratio] 24.2 kg/m2 24.2 k g/m2 MEDENT ([facility]) Oxygen saturation in Arterial blood by Pulse oximetry 98 % 98 % MEDENT ([facility]) Systolic blood pressure 113 mm[Hg] 113 mm[Hg] M EDENT ([facility]) Diastolic blood pressure 73 mm[Hg] 73 mm[Hg] MEDENT ([facility]) Heart rate 90 /min 90 /min MED[facility] ([facility]) Body temperature 98.1 [degF] 98.1 [degF] MEDENT ([facility]) Respiratory rate 14 /min 14 /min MEDENT ( [facility]) Body height 63 [in_i] 63 [in_i] MEDENT ([facility]) 5'3" Body weight 149.00 [lb_av] 149.00 [lb_av] MEDEN T ([facility]) Body mass index (BMI) [Ratio] 26.4 kg/m2 26.4 k g/m2 MEDENT ([facility]) Systolic blood pressure 119 mm[Hg] Normal (applies t o non-numeric results) 119 mm[Hg] [facility] Diastolic blood pressure 74 mm[Hg] Normal (applies to non-numeric results) 74 mm[Hg] [facility] Heart rate 98 min Normal (applies to non-numeric resul ts) 98 min [facility] Deprecated Oxygen saturation in Capillary blood by Oximetry 97 % Normal (applies to non-numeric results) 97 % [facility] Respiratory rate 18 min Normal (applies to non-numeric results) 18 min [facility] Body temperature 36.9 yareli Normal (applies to non-numeric results) 36.9 yareli [facility] Body height 159.7152 cm Normal (applies to non-numeric res ults) 159.7152 cm [facility] Body mass index (BMI) [Ratio] 24.76 kg/m2 No rmal (applies to non-numeric results) 24.76 kg/m2 [facility] Body weight Measured 63.4 kg Normal (applies to non-num erik results) 63.4 kg [facility] Respiratory rate 14 /min 14 /min MEDENT ( [facility]) Systolic blood pressure 146 mm[Hg] 146 mm[Hg] M EDENT ([facility]) Diastolic blood pressure 96 mm[Hg] 96 mm[Hg] MEDENT ([facility]) Heart rate 84 /min 84 /min MED[facility] ([facility]) Body temperature 98.1 [degF] 98.1 [degF] MEDENT ([facility]) Body height 63 [in_i] 63 [in_i] MEDENT ([facility]) 5'3" Body weight 149.00 [lb_av] 149.00 [lb_av] MEDEN T ([facility]) Body mass index (BMI) [Ratio] 26.4 kg/m2 26.4 k g/m2 MEDENT ([facility]) Systolic blood pressure 115 mm[Hg] 115 mm[Hg] [facility] Diastolic blood pressure 73 mm[Hg] 73 mm[Hg] [facility] Respiratory rate 16 /min 16 /min [facility] Oxygen saturation in Arterial blood by Pulse oximetry 100 % 100 % [facility] Body temperature 36.94 Yareli 36.94 Yareli [facility] Heart rate 93 /min 93 /min [facility] Body height 162.6 cm 162.6 cm [facility] Body weight 66.679 kg 66.679 kg [facility] Body mass index (BMI) [Ratio] 25.23 kg/m2 25.23 kg/m2 [facility] Body mass index (BMI) [Ratio] 26.5 kg/m2 26.5 k g/m2 MEDENT ([facility]) Heart rate 88 /min 88 /min MEDENT ([facility]) Diastolic blood pressure 78 mm[Hg] 78 mm[Hg] MEDENT ([facility]) LT Arm Body height 62.5 [in_i] 62.5 [in_i] MEDENT ([facility]) 5'2.50" Body weight 147.00 [lb_av] 147.00 [lb_av] MEDEN T ([facility]) Systolic blood pressure 122 mm[Hg] 122 mm[Hg] M EDENT ([facility]) LT Arm Body temperature 98.4 [degF] 98.4 [degF] MEDENT ([facility]) Systolic blood pressure 143 mm[Hg] 143 mm[Hg] EDENT ([facility]) Diastolic blood pressure 91 mm[Hg] 91 mm[Hg] MEDENT ([facility]) Heart rate 83 /min 83 /min [facility] ([facility]) Respiratory rate 18 /min 18 /min MED[facility] ( [facility]) Body height 63 [in_i] 63 [in_i] [facility] ([facility]) 5'3" Body weight 149.00 [lb_av] 149.00 [lb_av] MEDEN T ([facility]) Body mass index (BMI) [Ratio] 26.4 kg/m2 26.4 k g/m2 MEDENT ([facility]) Body mass index (BMI) [Ratio] 25.9 kg/m2 25.9 k g/m2 MEDENT ([facility]) Heart rate 92 /min 92 /min MED[facility] ([facility]) Oxygen saturation in Arterial blood by Pulse oximetry 96 % 96 % MED[facility] ([facility]) Systolic blood pressure 118 mm[Hg] 118 mm[Hg] M EDENT ([facility]) Diastolic blood pressure 68 mm[Hg] 68 mm[Hg] MEDENT ([facility]) Body height 64 [in_i] 64 [in_i] [facility] ([facility]) 5'4" Body weight 151.12 [lb_av] 151.12 [lb_av] MEDEN T ([facility]) ID Date Data Source [id number] 01/22/2020 12:50:54 PM [facility] Name Value Range Interpretation Code Description Data Source(s) WEIGHT RECORDED 152 lb 152 lb [facility] Body height Measured 63 in 63 in [facility] WEIGHT RECORDED 152 lb 152 lb [facility] Body height Measured 63 in 63 in [facility] Patient Treatment Plan of Care Planned Activity Planned Date Details Description Data Source (s) 30 ACTUAT umeclidinium 0.0625 MG/ACTUAT / vilanterol 0.025 MG/ACTUAT Dry Powder Inhaler [Anoro] 11/10/2020 12:00:00 AM EDT [facility] 30 ACTUAT umeclidinium 0.0625 MG/ACTUAT / vilanterol 0.025 MG/ACTUAT Dry Powder Inhaler [Anoro] 03/15/2020 12:00:00 AM EST [facility]
--- NOTE | 2021-02-11 10:33 | REP ---
INDICATION: fall/ blurry vision. COMPARISON: None. TECHNIQUE: 5 mm axial images through the head were obtained without contrast sagittal and coronal reconstructions were obtained from the original data set. FINDINGS: The visualized paranasal sinuses are clear and the mastoids are well aerated. No skull fracture is identified. Both axial and coronal images show of focal area of decreased attenuation above the posterior horn of the right lateral ventricle consistent with a deep white matter nonhemorrhagic CVA. This may be recent. No other significant abnormality is identified. 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 The critical information above was relayed directly by me by telephone to JERAMY SANCHEZ on 02/11/2021 at 10:23 am with readback verification. <Electronically signed by Say Bradford > 02/11/21 [id number]
--- OUTSIDE RECORDS SUMMARY | 2021-02-11 11:05 | CCD ---
Author Author [facility] Address Unknown Phone Unavailable Care Team Providers Care Retail Service Representative Name Role Phone Kwesi, Claudine SEW ON OPERATOR Unavailable Unavailable Kwesi, Claudine SEW ON OPERATOR Unavailable Unavailable Kwesi, Claudine SEW ON OPERATOR Unavailable Unavailable Kwesi, Claudine SEW ON OPERATOR Unavailable Unavailable Kwesi, Claudine SEW ON OPERATOR Unavailable Unavailable Kwesi, Claudine SEW ON OPERATOR Unavailable Unavailable Kwesi, Claudine SEW ON OPERATOR Unavailable Unavailable Kwesi, Claudine SEW ON OPERATOR Unavailable Unavailable Kwesi, Claudine SEW ON OPERATOR Unavailable Unavailable Kwesi, Claudine SEW ON OPERATOR Unavailable Unavailable Kwesi, Claudine SEW ON OPERATOR Unavailable Unavailable Kwesi, Claudine SEW ON OPERATOR Unavailable Unavailable Kwesi, Claudine SEW ON OPERATOR Unavailable Unavailable Kwesi, Claudine SEW ON OPERATOR Unavailable Unavailable Kwesi, Claudine SEW ON OPERATOR Unavailable Unavailable Kwesi, Claudine SEW ON OPERATOR Unavailable Unavailable Kwesi, Claudine SEW ON OPERATOR Unavailable Unavailable Kwesi, Claudine SEW ON OPERATOR Unavailable Unavailable Kwesi, Claudine SEW ON OPERATOR Unavailable Unavailable Kwesi, Claudine SEW ON OPERATOR Unavailable Unavailable Kwesi, Claudine SEW ON OPERATOR Unavailable Unavailable Kwesi, Claudine SEW ON OPERATOR Unavailable Unavailable Kwesi, Claudine SEW ON OPERATOR Unavailable Unavailable Kwesi, Claudine SEW ON OPERATOR Unavailable Unavailable Kwesi, Claudine SEW ON OPERATOR Unavailable Unavailable Kwesi, Claudine SEW ON OPERATOR Unavailable Unavailable Kwesi, Claudine SEW ON OPERATOR Unavailable Unavailable Kwesi, Claudine SEW ON OPERATOR Unavailable Unavailable Kwesi, Claudine SEW ON OPERATOR Unavailable Unavailable Kwesi, Claudine SEW ON OPERATOR Unavailable Unavailable Kwesi, Claudine SEW ON OPERATOR Unavailable Unavailable Kwesi, Claudine SEW ON OPERATOR Unavailable Unavailable Kwesi, Claudine SEW ON OPERATOR Unavailable Unavailable Kwesi, Claudine SEW ON OPERATOR Unavailable Unavailable Kwesi, Claudine SEW ON OPERATOR Unavailable Unavailable ALEX (ZEB), Joyce LICONA MD [...] MD Unavailable Unavailab le ALEX (ZEB), Joyce LIOCNA MD Unavailable Unavailab le ALEX (ZEB), Joyce LICONA MD Unavailable Unavailab le ALEX (ZEB), Joyce LICONA MD Unavailable Unavailab le Pham, J Latter-Day Unavailable + Pham, J Latter-Day Unavailable + Pham, J Latter-Day Unavailable + Pham, J Latter-Day Unavailable + Pham, J Latter-Day Unavailable + Pham, J Latter-Day Unavailable + Pham, J Latter-Day Unavailable + SHABNAM HURTADO Unavailable Unavailable SHABNAM [...] MANUEL . Unavailable Unavailable MEDENT_104, NA Unavailable [phone] RING, K BELLA PA Unavailable Unavailable RING, [...] Macho Quintanilla MD Unavailable Unavailable White, Briseida BUSINESS BANKING MANAGER Unavailable Unavailable White, Briseida BUSINESS BANKING MANAGER Unavailable Unavailable White, Briseida BUSINESS BANKING MANAGER Unavailable Unavailable White, Briseida BUSINESS BANKING MANAGER Unavailable Unavailable White, Briseida BUSINESS BANKING MANAGER Unavailable Unavailable White, Briseida BUSINESS BANKING MANAGER Unavailable Unavailable White, Briseida BUSINESS BANKING MANAGER Unavailable Unavailable White, Briseida BUSINESS BANKING MANAGER Unavailable Unavailable White, Briseida BUSINESS BANKING MANAGER Unavailable Unavailable White, Briseida BUSINESS BANKING MANAGER Unavailable Unavailable White, Briseida BUSINESS BANKING MANAGER Unavailable Unavailable White, Briseida BUSINESS BANKING MANAGER Unavailable Unavailable White, Briseida BUSINESS BANKING MANAGER Unavailable Unavailable CLAUDINE HUBER Unavailable Unavailable Yanni [...] Unavailable Yanni José MD Unavailable Unavailable Yanni Jsoé MD Unavailable Unavailable Yanni José MD Unavailable Unavailable Yanni José MD Unavailable Unavailable Yanni José MD Unavailable Unavailable Yanni José MD Unavailable Unavailable PlYanni stone MD Unavailable Unavailable Plocek, Yanni RIVERS Unavailable Unavailable Plocek, Yanni RIVERS Unavailable Unavailable Plocek, Yanni RIVERS Unavailable Unavailable Plocek, Yanni RIVERS Unavailable Unavailable Plocek, Yanni RIVERS Unavailable Unavailable Plocek, Ynani RIVERS Unavailable Unavailable Plocek, Yanni RIVERS Unavailable Unavailable CODY, B FREDRICK BUSINESS BANKING MANAGER Unavailable Unavailable CODY, B FREDRICK BUSINESS BANKING MANAGER Unavailable Unavailable CODY, B FREDRICK BUSINESS BANKING MANAGER Unavailable Unavailable CODY, B FREDRICK BUSINESS BANKING MANAGER Unavailable Unavailable CODY, B FREDRICK BUSINESS BANKING MANAGER Unavailable Unavailable CODY, B FREDRICK BUSINESS BANKING MANAGER Unavailable Unavailable CODY, B FREDRICK BUSINESS BANKING MANAGER Unavailable Unavailable CODY, B FREDRICK BUSINESS BANKING MANAGER Unavailable Unavailable CODY, B FREDRICK BUSINESS BANKING MANAGER Unavailable Unavailable CODY, B FREDRICK BUSINESS BANKING MANAGER Unavailable Unavailable CODY, B FREDRICK BUSINESS BANKING MANAGER Unavailable Unavailable CODY, B FREDRICK BUSINESS BANKING MANAGER Unavailable Unavailable CODY, B FREDRICK BUSINESS BANKING MANAGER Unavailable Unavailable CODY, B FREDRICK BUSINESS BANKING MANAGER Unavailable Unavailable CODY, B FREDRICK BUSINESS BANKING MANAGER Unavailable Unavailable CODY, B FREDRICK BUSINESS BANKING MANAGER Unavailable Unavailable CODY, B FREDRICK BUSINESS BANKING MANAGER Unavailable Unavailable CODY, B FREDRICK BUSINESS BANKING MANAGER Unavailable Unavailable CODY, B FREDRICK BUSINESS BANKING MANAGER Unavailable Unavailable CODY, B FREDRICK BUSINESS BANKING MANAGER Unavailable Unavailable CODY, B FREDRICK BUSINESS BANKING MANAGER Unavailable Unavailable CODY, B FREDRICK BUSINESS BANKING MANAGER Unavailable Unavailable CODY, B FREDRICK BUSINESS BANKING MANAGER Unavailable Unavailable CODY, B FREDRICK BUSINESS BANKING MANAGER Unavailable Unavailable CODY, B FREDRICK BUSINESS BANKING MANAGER Unavailable Unavailable CODY, B FREDRICK BUSINESS BANKING MANAGER Unavailable Unavailable CODY, B FREDRICK BUSINESS BANKING MANAGER Unavailable Unavailable CODY, B FREDRICK BUSINESS BANKING MANAGER Unavailable Unavailable CODY, B FREDRICK BUSINESS BANKING MANAGER Unavailable Unavailable CODY, B FREDRICK BUSINESS BANKING MANAGER Unavailable Unavailable CODY, B FREDRICK BUSINESS BANKING MANAGER Unavailable Unavailable CODY, B FREDRICK BUSINESS BANKING MANAGER Unavailable Unavailable CODY, B FREDRICK BUSINESS BANKING MANAGER Unavailable Unavailable CODY, B FREDRICK BUSINESS BANKING MANAGER Unavailable Unavailable CODY, B FREDRICK BUSINESS BANKING MANAGER Unavailable Unavailable CODY, B FREDRICK BUSINESS BANKING MANAGER Unavailable Unavailable CODY, B FREDRICK BUSINESS BANKING MANAGER Unavailable Unavailable CODY, B FREDRICK BUSINESS BANKING MANAGER Unavailable Unavailable CODY, B FREDRICK BUSINESS BANKING MANAGER Unavailable Unavailable CODY, B FREDRICK BUSINESS BANKING MANAGER Unavailable Unavailable CODY, B FREDRICK BUSINESS BANKING MANAGER Unavailable Unavailable CODY, B FREDRICK BUSINESS BANKING MANAGER Unavailable Unavailable CODY, B FREDRICK BUSINESS BANKING MANAGER Unavailable Unavailable CODY, B FREDRICK BUSINESS BANKING MANAGER Unavailable Unavailable CODY, B FREDRICK BUSINESS BANKING MANAGER Unavailable Unavailable CODY, B FREDRICK BUSINESS BANKING MANAGER Unavailable Unavailable CODY, B FREDRICK BUSINESS BANKING MANAGER Unavailable Unavailable CODY, B FREDRICK BUSINESS BANKING MANAGER Unavailable Unavailable CODY, B FREDRICK BUSINESS BANKING MANAGER Unavailable Unavailable CODY, B FREDRICK BUSINESS BANKING MANAGER Unavailable Unavailable CODY, B FREDRICK BUSINESS BANKING MANAGER Unavailable Unavailable CODY, B FREDRICK BUSINESS BANKING MANAGER Unavailable Unavailable CODY, B FREDRICK BUSINESS BANKING MANAGER Unavailable Unavailable CODY, B FREDRICK BUSINESS BANKING MANAGER Unavailable Unavailable CODY, B FREDRICK BUSINESS BANKING MANAGER Unavailable Unavailable CODY, B FREDRICK BUSINESS BANKING MANAGER Unavailable Unavailable CODY, B FREDRICK BUSINESS BANKING MANAGER Unavailable Unavailable CODY, B FREDRICK BUSINESS BANKING MANAGER Unavailable Unavailable CODY, B FREDRICK BUSINESS BANKING MANAGER Unavailable Unavailable CODY, B FREDRICK BUSINESS BANKING MANAGER Unavailable Unavailable CDOY, B FREDRICK BUSINESS BANKING MANAGER Unavailable Unavailable CODY, B FREDRICK BUSINESS BANKING MANAGER Unavailable Unavailable PICKERAL JR, J CAMPOS PA-C [...] Unavailable Unavailable Aaynna Silver MD Unavailable Unavailable SilverAyanna bullock MD [...] Unavailable Ayanna Silver MD Unavailable Unavailable Ayanna Silvre MD Unavailable Unavailable Ayanna Silver MD Unavailable [...] Unavailable Unavailable SilverAyanna bullock MD Unavailable Unavailable SivlerAyanna bullock MD Unavailable Unavailable SilverAyanna bullock MD [...] Unavailable Unavailable MICK, SUBRAT . Unavailable Unavailable Demetrius, C Cody PH.D., M.D. [...] Deja Ross PH.D., M.D. Unavailable Unavailable Demetrius, eDja Ross PH.D., M.D. Unavailable Unavailable Demetrius, Deja [...] is protected by Article 27-F of the [facility] Public Health law. If you continue you may have access to information: Regarding HIV / AIDS; Provided by facilities licensed or operated by the [facility] Office of Mental Health; or Provided by the [facility] Office for People With Developmental Disabilities. If such information is present, then the following [facility] mandated warning applies: This information has been [...] law may result in a fine or detention sentence or both. A general authorization for the release of medical or other information is NOT sufficient authorization for further disc losure. Allergies and Adverse Reactions Type Description Substance Reaction Status Data Source(s ) Drug allergy No Known Drug Allergies No Known Drug Allergies [facility] Family History Family Member Name Family Member Gender Family Member Status Date o f Status Description Data Source(s) Unknown Unknown Problem [facility] ([facility]) Unknown Unknown Problem [facility] ([facility] BROTHER Unknown Male Problem [facility] ([facility]) () - 01/2016 Unknown Female Problem [facility] ([facility]) Unknown Female Problem [facility] ([facility] Unknown Female Problem [facility] ([facility]) Unknown Female Problem [facility] ([facility]) Unknown Female Problem [facility] ([facility]) Unknown Female Problem [facility] ([facility]) Encounters Encounter Providers Location Date Indications Data Source(s ) Outpatient Attender: Dominik SoanalAttender: DOMINIK HAND . 02/14/2021 12:00:00 AM [facility] Outpatient Attender: FREDRICK ROSS NP Physical Therapy 11:15:00 AM EDT MED[facility] ([facility]) Outpatient Attender: Bijan Frederick MDReferrer: Randall carrera MD [id number] 02/02/2021 05:43:38 PM EDT [facility] Attender: Bijan AREVALOeferrer: Randall carrera MD [id number] 01/31/2021 01:15:37 PM EDT [facility] Attender: Bijan Frederick MDReferrer: Randall carrera [...] Rachel/Teetee/Marah montoya/Blake 12/23/2020 08:45:00 AM EDT MED[facility] ([facility] ) Outpatient Admitter: Macho Quintanilla MDReferrer: Macho Quintanilla MD 12/20/2020 12:00:00 AM EDT Disorder of thyroid, unspecified [facility] Disorder of thyroid, unspecified Outpatient Attender: [...] Rachel/Teetee/Marah montoya/Blake 12/01/2020 10:45:00 AM EDT MED[facility] ([facility] ) Outpatient Attender: Areyanet [...] Physical Therapy 11/03/2020 10:45:00 AM EDT MED[facility] ([facility]) Outpatient Attender: Areyanet Frederick [...] SHABNAM tucker 09/27/2020 03:10:00 PM EDT [facility] ([facility]) Outpatient Attender: Bijan [...] Briseida jimenez 09/11/2020 01:40:00 PM EDT MED[facility] ([facility]) Outpatient Attender: Areyanet [...] NP Physical Therapy 04:15:00 PM EDT MED[facility] ([facility]) Outpatient Attender: Bijan [...] CAMPOS Bello 08/13/2020 10:40:00 AM EDT MED[facility] ([facility] ) Outpatient Attender: Areyanet Agerick MDReferrer: [...] Attender: Bijna Frederick MDReferrer: Randall carrera MD [id number] 07/12/2020 [...] [facility] Out[facility] Attender: BELLA Cary [facility] 06/30/2020 03:10:00 PM EDT MED[facility] ([facility]) Outpatient Attender: FREDRICK ROSS NP Physical Therapy 10:45:00 AM EDT MED[facility] ([facility]) Outpatient Attender: Bijan [...] EST - 05/25/2020 04:40:00 PM EST [facility] Outpatient Attender: Bijan Frederick MDReferrer: Randall [...] [facility] Out[facility] 04/23/2020 01:55:00 PM EST [facility] Outpatient 04/23/2020 01:55:00 PM EST [facility] Outpatient Attender: Areyanet Frederick MDReferrer: [...] 12:25:12 PM EST [facility] Outpatient Referrer: Randall Silver MD 03/24/2020 06:40:49 AM EST [facility] Outpatient Referrer: Randall Silver MD 03/24/2020 06:37:18 AM EST [facility] OFFICE OUTPATIENT VISIT 15 MINUTES Attender: FREDRICK ROSS BUSINESS BANKING MANAGER Physical Therapy 03/22/2020 08:00:00 AM EST [facility] ([facility]) Outpatient Referrer: Randall Silver MD 03/19/2020 03:03:09 PM EST [facility] Outpatient 03/19/2020 02:48:09 PM EST [facility] Outpatient Attender: Claudine Damon 12:40:00 PM EST MED[facility] ([facility] ) Inpatient Attender: Randall Silver MD 03/05/2020 01:53:37 PM EST [facility] [place] [facility] Inpatient Attender: Randall Silver MDAdmitter: Randall rey MD 03/05/2020 08:22:00 AM EST - 03/13/2020 04:24:00 PM EST DESCENDING COLON CARCINOMA C18.6 [facility] DESCENDING COLON CARCINOMA C18.6 Patient discharged. Inpatient Attender: Randall Silver MD 03/05/2020 08:22:00 AM EST [facility] [place] ( in Healthcare facility) Attender: Randall Silver MDAdmitter: Randall Silver MDConsultant: CLAUDINE HUBER 03/05/2020 08:22:00 AM EST [facility] Outpatient Attender: Randall Silver MD 03/04/2020 09:00:00 AM [facility] Outpatient Attender: Randall Silver MD 03/03/2020 03 :00:00 PM EST STAT C18.6, Z15.09 staging, no oral just IV [facility] STAT C18.6, Z15.09 staging, no oral just IV Outpatient Attender: NA MEDENT_104 CMP Internal Med at [facility] 03/02/2020 08:50:00 AM EST [facility] ([facility]) Outpatient Attender: Randall Silver MD 02/27/2020 02:54:47 PM EST [facility] [place] [facility] Outpatient Attender: Randall Silver MD 02/27/2020 12 :09:00 PM EST ROBOTIC LAPAROSCOPIC ASSISTED POSSIBLE OPEN SIGMOID RESECTIO [facility] ROBOTIC LAPAROSCOPIC ASSISTED POSSIBLE O PEN SIGMOID RESECTIO Outpatient Attender: Randall Rosas 02/19/2020 12:00:00 PM EST [facility] ([facility]) Outpatient Attender: Claudine Damon 07:20:00 AM EST [facility] ([facility] ) Outpatient Referrer: MANUEL PHAM . 02/04/2020 12:00:0 0 AM EST Encounter for screening for malignant neoplasm of respiratory organs [facility] Encounter for screening for malignant ne oplasm of respiratory organs Outpatient Attender: Yanni José MD Attender: Randall Silver MDAdmitter: Yanni José MD [id number] 01/19/2020 03:14:27 PM EDT - 02/09/2020 11:31:00 AM EST [facility] Patient discharged. Outpatient Attender: Randall Rosas 01/15/2020 01:15:00 PM EDT [facility] ([facility]) Outpatient Attender: FREDRICK ROSS NP Physical Therapy 08:45:00 AM EDT MED[facility] ([facility]) Outpatient Attender: MANUEL PHAM . [id number] 12:00:00 AM EDT - 01/20/2019 01:44:11 PM EDT Encounter for immunization [facility] Encounter for immunization Immunizations Vaccine Date Status Description Data Source(s) COVID-19 VACCINE Pfizer 09/27/2020 12:00:00 AM EDT completed [facility] Vaccine Series Complete: YESThis Data wa s Submitted to [facility] [employer]. COVID-19 VACC, MRNA(PFIZER)/PF 09/06/2020 12:00:00 AM EDT completed [facility] COVID-19 VACCINE Pfizer 09/06/2020 12:00:00 AM EDT completed [facility] Vaccine Series Complete: NOThis Data was Submitted to [facility] [employer]. INFLUENZA VIRUS VACCINE QUADRIVAL [id number](6 MOS AND UP)/PF 01/25/2020 12:00:00 AM EDT [...] DAILY DOSE = 2 CAPSULES SOLD: 12/23/2020 [employer] Atropine Sulfate 0.025 MG / Diphenoxylat e [...] Inhale 1 puff into the lungs daily [facility] Other emphysema 125 mcg 11/03/2020 12:00:00 AM [...] AM EDT ORAL completed MEDENT ([facility]) NITROFURANTOIN, MACROCRYSTALS 25 MG / Ni trofurantoin, [...] 12:00:00 AM EDT ORAL active M EDENT ([facility]) 150 mcg 08/24/2020 12:00:00 [...] 08/13/2020 12:00:00 AM EDT ORAL active MED[facility] ([facility]) Potassium Chloride 10 MEQ Extended Release [...] 06/30/2020 12:00:00 AM EDT ORAL completed [facility] ([facility]) Compazine 06/30/2020 12:00:00 AM EDT active [facility] ([facility]) Chemotherapy 06/30/2020 12:00:00 AM EDT activ e MED[facility] ([facility]) 100 mg 06/30/2020 12:00:00 AM [...] 06/15/2020 12:00:00 AM EDT ORAL completed [facility] ([facility]) 100 mg 06/15/2020 12:00:00 AM EDT [...] LUNGS DAILY SOLD: 06/15/2020 [facility] Nystatin [id number] UNT/ML Oral Suspension Nystatin 03/15/2020 12:00:00 AM [...] Inhale 1 puff into the lungs daily [facility] Other emphysema 100,000 unit/mL 03/15/2020 12:00:00 AM [...] active [facility] ([facility]) Neomycin Sulfate 500 MG Oral Tablet Neomycin Sulfate 02/23/2020 12:00:00 AM EST active [facility] ( [facility]) 500 mg 02/23/2020 12:00:00 AM EST tablet [...] DIRECTED SOLD: 02/25/2020 [facility] Magnesium Chloride 0.06478 MEQ/ML / Pota ssium Chloride 0.0497 MEQ/ML / Sodium Acetate 0.0163 MEQ/ML / Sodium Chloride 0.0899 MEQ/ML / Sodium gluconate 5.02 MG/ML Injectable Solution [Normosol-R] electrolyte-R (NORMOSOL-R/PLASMALYTE-R) solution electrolyte-R (NORMOSOL-R/PLASMALYTE-R) solution 02/08 10:00:00 AM EST Intravenous active at 1 00 mL/hr, Intravenous, Continuous, Starting Sun02/09/20 at 1000, Pre-op [facility] Medication administered onsite normal saline flush 0.9 % injection 3 mL 05250-011-42 02/09/2020 10:00:00 AM EST 3 mL Intravenous active 3 mL , Intravenous, Every 8 hours (scheduled), First dose on Sun02/09/20 at 1000, Pre-op
Rapid push positive pressure flushing shall be performed with a 10 cc normal saline syringe to check the PATENCY of a PIV site prior to any infusion therapy initiation unless resistance is met.
[facility] Medication administered onsite buspirone hydrochloride 10 [...] type / Coverage type Policy ID Covered green party ID Covered green party's relationship to guevara Policy Guevara Plan Information [employer] 306/806 [id number] [id number] [place] 306/806 [id number] HU2 [id number] [place] 306/806 [id number] HU2 [id number] [place] [employer] Commercial [id number] Family Dependent BS [place] Trad/MX Medigap Part B [id number] Family Dependent [id number] [place] Medigap Part B [id number] Family Dependent [id number] [place] [employer] Commercial [id number] Family Dependent [id number] [place] [employer] Commercial [id number] Family Dependent [id number] [place] [employer] Commercial [id number] Family Dependent [id number] [place] [employer] Commercial [id number] Family Dependent [id number] [place] [employer] Commercial [id number] Family Dependent [id number] [place] [employer] Commercial [id number] Family Dependent [id number] [facility] [id number] Spouse [id number] [place] 306/806 [id number] HU2 [id number] [employer] Primary [id number] [place] 306/806 [id number] HU2 [id number] [place] PPO 302/307 [id number] HU2 [id number] [place] BCBS [id number] [phone] [id number] [employer] [place] 306/806 [id number] HU2 [id number] [place] BCBS [id number] Spo VYS [place] [employer]/[place] Commercial [id number] Family Dependent [id number] [place] Commercial [id number] Family Dependent [id number] [place] [employer] Commercial [id number] Family Dependent [id number] BS [place] Commercial [id number] Family Dependent [id number] [place] Commercial [id number] Family Dependent [id number] [place] Commercial [id number] Family Dependent [id number] [place] Tr[employer]/[place] Commercial [id number] Family Dependent [id number] BS [place] Commercial [id number] Family Dependent [id number] [place] [employer] Commercial [id number] Family Dependent [id number] [place] [employer] Commercial [id number] Family Dependent [id number] [place] Tr[employer]/[place] Commercial [id number] Family Dependent [id number] BS [place] Commercial [id number] Family Dependent [id number] BS [place] Commercial [id number] Family Dependent [id number] BS [place] Commercial [id number] Family Dependent [id number] [place] Tr[employer]/[place] Commercial [id number] Family Dependent [id number] INSURANCE COVID-19 COVID Christy C OVID SELF PAY BLUE CROSS [id number] SPO [id number] [facility] [id number] 1 [id number] [place] Medigap Part B [id number] Family Dependent [id number] [employer] Commercial [id number] [id number] Family Dependent [id number] [place] Medigap Part B [id number] Family Dependent [id number] BS [place] Medigap Part B [id number] Family Dependent [id number] BS [place] Medigap Part B [id number] Family Dependent [id number] [employer] Commercial [id number] Family Dependent [id number] [place] PPO 302/307 [id number] HU2 [id number] BS [place] Commercial [id number] Self BS [place] [facility] [id number] Family Dependent [id number] BCBS/[employer] Commercial [id number] Family Dependent BC[employer] Commercial [id number] Family Dependent [employer] BCBS Health Maintenance Organization (HMO) [id number] Family Dependent [id number] BS [place] [facility] Part B [id number] Family Dependent [id number] EXCELL[employer] BCBS B [id number] P [id number] [id number] BS [place] [facility] [id number] Family Dependent [id number] BS [place] [employer] Part B [id number] Family Dependent [id number] BCBS [place] PPO 302/307 [id number] HU2 [id number] BCBS [place] PPO 302/307 [id number] SP [id number] EXCELL[employer] BCBS B [id number] O VYS [id number] BS [place] Commercial [id number] Family Dependent BCBS OF [place] [id number] SPO VYS [id number] EXCELL[employer] BLUE CROSS BLUE SHIELD HEA [id number] SP [id number] Problems, Conditions, and Diagnoses Code Display Name Description Problem Type Effective Dates Data Source(s) E07.9 Disorder of thyroid, unspecified Disorder of thy roid, unspecified Diagnosis 12/20/2020 10:38:00 AM T [facility] R19.7 Diarrhea, unspecified Diarrhea, unspecified Diagnosis 08/04/2020 12:00:00 AM EDT [facility] J90 Pleural effusion, not elsewhere classifi ed Pleural effusion, not elsewhere classified Diagnosis 05/17/2020 07:56:[address] 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 Diagnosis 05/05/2020 12:00:00 AM EST [facility] C55 Malignant neoplasm of uterus, part unspe cified Malignant neoplasm of uterus, part unspecified Diagnosis 04/06/2020 12:00:00 AM EST [facility] Z84.81 Family history of carrier of genetic dis ease Family history of carrier of genetic disease Diagnosis 04/06/2020 12:00:00 AM EST [facility] J43.9 Emphysema, unspecified EMPHYSEMA, UNSPECIFIED Diagnosi s 03/04/2020 09:00:00 AM [facility] 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 Z86.010 Personal history of colonic polyps Personal hist ory of colonic polyps Diagnosis 02/09/2020 08:28:00 AM EST [facility] R19.4 Change in bowel habit Change in bowel habit Diagnosis 02/09/2020 08:28:00 AM EST [facility] C18.9 Malignant neoplasm of colon, unspecified Malignant neoplasm of colon, unspecified Diagnosis 02/09/2020 12:00:00 AM EST [facility]ARAJ[facility] Z12.2 Encounter for screening for malignant ne oplasm of respiratory organs Encounter for screening for malignant neoplasm of respiratory organs Diagnosis 02/04/2020 01:19:47 PM EST [facility] R47.02 Disturbance in speech Disturbance in speech Problem 12/01/2020 12:00:00 AM EDT [facility] ([facility], ) R07.0 Sore throat symptom Sore throat symptom Problem 0 12/01/2020 12:00:00 AM EDT [facility] ([facility], ) 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 12/01/2020 12:00:00 AM EDT MEDEN T ([facility], ) [id number] Essential hypertension Essential hypertension Problem 11/30/2020 12:00:00 AM EDT [facility] ([facility]) [id number] Carcinoma of colon Carcinoma of colon Problem 12:00:00 AM EST [facility] ([facility]) 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/15/2020 12:00: 00 AM EST [facility] ([facility]) Surgeries/Procedures Procedure Description Date Indications Data Source(s) OFFICE OUTPATIENT VISIT 25 MINUTES 02/04/2021 12:00:00 AM EDT [facility] ([facility]) OFFICE OUTPATIENT VISIT 25 MINUTES 12/23/2020 12:00:00 AM EDT [facility] ([facility]) OFFICE OUTPATIENT NEW 45 MINUTES 12/01/2020 12:00:00 A M EDT [facility] ([facility]) OFFICE OUTPATIENT VISIT 15 MINUTES 11/03/2020 12:00:00 AM EDT [facility] ([facility]) OFFICE OUTPATIENT VISIT 25 MINUTES 09/27/2020 12:00:00 AM EDT [facility] ([place] [facility]) OFFICE OUTPATIENT VISIT 15 MINUTES 09/11/2020 12:00:00 AM EDT [facility] ([place] [facility]) OFFICE OUTPATIENT VISIT 25 MINUTES 08/24/2020 12:00:00 AM EDT [facility] ([facility]) OFFICE OUTPATIENT VISIT 25 MINUTES 08/13/2020 12:00:00 AM EDT [facility] ([facility]) OFFICE OUTPATIENT VISIT 25 MINUTES 06/30/2020 12:00:00 AM EDT [facility] ([facility]) OFFICE OUTPATIENT VISIT 25 MINUTES 06/29/2020 12:00:00 AM EDT [facility] ([facility]) Electrocardiogram Interpretation & Report Only 020 12:00:00 AM EST [facility] ([facility] [place]) COLCT TOT ABDL W/O PRCTECT W/ILEOST/ILEOPXTS 0 [...] of [facility]) Results ID Date Data Source [id number] 02/01/2021 12:04:00 PM EDT [facility] ([facility]) Name Value Range Interpretation Code Description Data Nadira rce(s) Supporting Document(s) Magnesium [Moles/volume] in Serum or Plasma 1.8 mg/dL 1.8-2.4 [facility] ([facility]) Carcinoembryonic Ag [Mass/volume] in Serum or Plasma 4.8 ng/mL [facility] ([facility]) THE CEA ASSAY IS PERFORMED ON THE [employer] BY CHEMILUMINESCENCE AND SHOULD NOT BE COMPARED INTERCHANGEABLY WITH OTHER METHODS. IT SHOULD NOT BE USED ALONE A SCREENING TEST OR DIAGNOSIS FOR THE PRESENCE OR ABSENCE OF MALIGNANT DISEASE. PREDICTIONS OF DISEASE RECURRENCE SHOULD NOT BE BASED SOLELY ON VALUES OBTAINED FROM SERIAL PATIENT SERUM VALUES. ID Date Data Source [id number] 02/01/2021 12:04:00 PM EDT [facility] ([facility]) Name Value Range Interpretation Code Description Data [facility] Supporting Document(s) White Blood Count 4.9 10 4.0-10.0 [facility] ([facility]) Red Blood Count 4.04 10 4.00-5.40 [facility] ([facility]) Hemoglobin 12.8 g/dL 12.0-15.5 [facility] ([facility]) Mean Corpuscular Hemoglobin 31.7 pg 27.0-33.0 [place] D[place] ([facility]) Hematocrit 40.5 % 36.0-47.0 [facility] ([facility]) Mean Corpuscular Volume 100.2 fl 80.0-96.0 [facility] ([place] [facility]) Mean Corpuscular HGB Conc 31.6 g/dL 32.0-36.5 MEDE NT ([place] [facility]) Platelet Count, Automated 198 10 150-450 MEDE NT ([facility]) Red Cell Distribution Width 14.1 % 11.5-14.5 [place] ([facility]) [place] % 11.4 % 2.0-8.0 [facility] ([place] [facility]) Lymph % 15.0 % 24.0-44.0 [facility] ([place] [facility]) Neutrophils % 71.6 % 36.0-66.0 [facility] ([facility]) Eos % 0.8 % 0.0-3.0 [facility] ([place] [facility]) Baso % 0.8 % 0.0-1.0 [facility] ([place] [facility]) Immature Granulocyte % 0.4 % 0-3.0 [facility] ([facility]) Nucleated Red Blood Cell % 0.0 % 0-0 MED ENT ([facility]) Lymph # 0.7 10 1.5-5.0 [facility] ([place] [facility]) Neutrophils # 3.5 10 1.5-8.5 [facility] ([facility]) [place] # 0.6 10 0.0-0.8 [facility] ([place] [facility]) Eos # 0.0 10 0.0-0.5 [facility] ([place] [facility]) Baso # 0.0 10 0.0-0.2 [facility] ([place] [facility]) ID Date Data Source [id number] 02/01/2021 12:04:00 PM EDT [facility] ([facility]) Name Value Range Interpretation Code Description Data Nadira rce(s) Supporting Document(s) Blood Urea Nitrogen 6 mg/dL 7-18 [facility] ([facility]) Glucose, Fasting 88 mg/dL 70-100 [facility] ([facility]) Creatinine For GFR 0.39 mg/dL 0.55-1.30 [facility] ([facility]) Sodium Level 140 meq/L 136-145 [facility] ([facility]) Glomerular Filtration Rate Laboratory test result [facility] ([place] [facility]) <content>Units are mL/min/1.73 m2</content>
<content></content>
<content>Chronic Kidney Disease Staging per NKF:</content>
<content></content>
<content>Stage I & II GFR >=60 Normal to Mildly Decreased</content>
<content>Stage III GFR 30- 59 Moderately Decreased</content>
<content>Stage IV GFR 15-29 Severely Decreased</content>
<content>Stage V GFR <15 Very Little GFR Left</content>
<content>ESRD GFR <15 on MEMORY CARE PROGRAM RESIDENT</content>
<content></content> Potassium Serum 4.4 meq/L 3.5-5.1 [facility] ([facility]) Chloride Level 107 meq/L 98-107 [facility] ([facility]) Carbon Dioxide Level 31 meq/L 21-32 [facility] ([facility]) Anion Gap 2 meq/L 8-16 [facility] ([place] [facility]) Calcium Level 9.5 mg/dL 8.5-10.1 [facility] ([facility]) Alt/SGPT 29 U/L 12-78 [facility] ([place] [facility]) Ast/Sgot 33 U/L 7-37 [facility] ([facility]) Bilirubin,Total 0.6 mg/dL 0.2-1.0 [facility] ([facility]) Alkaline Phosphatase 177 U/L 45-117 [facility] ([facility]) Total Protein 5.9 GM/DL 6.4-8.2 [facility] ([facility]) Albumin 2.8 GM/DL 3.2-5.2 [facility] ([facility]) Albumin/Globulin Ratio 0.9 1.2-2.2 [facility] ([facility]) ID Date Data Source [id number] 01/25/2021 11:44:00 AM EDT [facility] ([facility]) Name Value Range Interpretation Code Description Data Nadira rce(s) Supporting Document(s) Glucose, Fasting 95 mg/dL 70-100 [facility] ([facility]) Creatinine For GFR 0.46 mg/dL 0.55-1.30 [facility] ([facility]) Blood Urea Nitrogen 5 mg/dL 7-18 [facility] ([facility]) Glomerular Filtration Rate Laboratory test result [facility] ([place] [facility]) <content>Units are mL/min/1.73 m2</content>
<content></content>
<content>Chronic Kidney Disease Staging per NKF:</content>
<content></content>
<content>Stage I & II GFR >=60 Normal to Mildly Decreased</content>
<content>Stage III GFR 30- 59 Moderately Decreased</content>
<content>Stage IV GFR 15-29 Severely Decreased</content>
<content>Stage V GFR <15 Very Little GFR Left</content>
<content>ESRD GFR <15 on MEMORY CARE PROGRAM RESIDENT</content>
<content></content> Sodium Level 142 meq/L 136-145 [facility] ([facility]) Potassium Serum 4.5 meq/L 3.5-5.1 [facility] ([facility]) Chloride Level 107 meq/L 98-107 [facility] ([facility]) Carbon Dioxide Level 30 meq/L 21-32 [facility] ([facility]) Anion Gap 5 meq/L 8-16 [facility] ([place] [facility]) Alt/SGPT 30 U/L 12-78 [facility] ([place] [facility]) Ast/Sgot 45 U/L 7-37 [facility] ([place] [facility]) Calcium Level 9.1 mg/dL 8.5-10.1 [facility] ([facility]) Alkaline Phosphatase 162 U/L 45-117 [facility] ([facility]) Total Protein 5.6 GM/DL 6.4-8.2 [facility] ([facility]) Bilirubin,Total 0.5 mg/dL 0.2-1.0 [facility] ([facility]) Albumin 2.4 GM/DL 3.2-5.2 [facility] ([place] [facility]) Albumin/Globulin Ratio 0.8 1.2-2.2 [facility] ([facility]) ID Date Data Source [id number] 01/25/2021 11:44:00 AM EDT [facility] ([facility]) Name Value Range Interpretation Code Description Data Nadira rce(s) Supporting Document(s) White Blood Count 3.4 10 4.0-10.0 [facility] ([facility]) Red Blood Count 3.94 10 4.00-5.40 [facility] ([facility]) Hemoglobin 12.8 g/dL 12.0-15.5 [facility] ([place] [facility]) Hematocrit 40.0 % 36.0-47.0 [facility] ([place] [facility]) Mean Corpuscular Volume 101.5 fl 80.0-96.0 [facility] ([facility]) Mean Corpuscular Hemoglobin 32.5 pg 27.0-33.0 ME DENT ([facility]) Red Cell Distribution Width 14.2 % 11.5-14.5 ME [facility] ([facility]) Mean Corpuscular HGB Conc 32.0 g/dL 32.0-36.5 MEDE NT ([facility]) Platelet Count, Automated 179 10 150-450 MEDE NT ([facility]) Neutrophils % 59.9 % 36.0-66.0 [facility] ([facility]) Lymph % 21.4 % 24.0-44.0 [facility] ([place] [facility]) [place] % 14.8 % 2.0-8.0 [facility] ([place] [facility]) Eos % 2.1 % 0.0-3.0 [facility] ([place] [facility]) Baso % 1.5 % 0.0-1.0 [facility] [facility] Nucleated Red Blood Cell % 0.0 % 0-0 MED ENT ([facility]) Immature Granulocyte % 0.3 % 0-3.0 [facility] ([facility]) Neutrophils # 2.0 10 1.5-8.5 [facility] ([facility]) Lymph # 0.7 10 1.5-5.0 [facility] ([place] [facility]) Eos # 0.1 10 0.0-0.5 [facility] ([place] [facility]) [place] # 0.5 10 0.0-0.8 [facility] ([place] [facility]) Baso # 0.1 10 0.0-0.2 [facility] ([place] [facility]) ID Date Data Source [id number] 01/18/2021 10:39:00 AM EDT [facility] ([facility]) Name Value Range Interpretation Code Description Data Nadira rce(s) Supporting Document(s) Blood Urea Nitrogen 4 mg/dL 7-18 [facility] ([facility]) Glucose, Fasting 108 mg/dL 70-100 [facility] ([facility]) Creatinine For GFR 0.62 mg/dL 0.55-1.30 [facility] ([facility]) Glomerular Filtration Rate Laboratory test result [facility] ([place] [facility]) <content>Units are mL/min/1.73 m2</content>
<content></content>
<content>Chronic Kidney Disease Staging per NKF:</content>
<content></content>
<content>Stage I & II GFR >=60 Normal to Mildly Decreased</content>
<content>Stage III GFR 30- 59 Moderately Decreased</content>
<content>Stage IV GFR 15-29 Severely Decreased</content>
<content>Stage V GFR <15 Very Little GFR Left</content>
<content>ESRD GFR <15 on MEMORY CARE PROGRAM RESIDENT</content>
<content></content> Potassium Serum 4.4 meq/L 3.5-5.1 [facility] ([facility]) Sodium Level 140 meq/L 136-145 [facility] ([facility]) Anion Gap 4 meq/L 8-16 [facility] ([facility]) Carbon Dioxide Level 31 meq/L 21-32 [facility] ([facility]) Chloride Level 105 meq/L 98-107 [facility] ([facility]) Ast/Sgot 40 U/L 7-37 [facility] ([facility]) Calcium Level 8.7 mg/dL 8.5-10.1 [facility] ([facility]) Alt/SGPT 24 U/L 12-78 [facility] ([facility]) Alkaline Phosphatase 158 U/L 45-117 [facility] ([facility]) Bilirubin,Total 0.6 mg/dL 0.2-1.0 [facility] ([facility]) Total Protein 5.8 GM/DL 6.4-8.2 [facility] ([facility]) Albumin 2.4 GM/DL 3.2-5.2 [facility] ([place] [facility]) Albumin/Globulin Ratio 0.7 1.2-2.2 [facility] ([facility]) ID Date Data Source [id number] 01/18/2021 10:39:00 AM EDT [facility] ([facility]) Name Value Range Interpretation Code Description Data Nadira rce(s) Supporting Document(s) Magnesium [Moles/volume] in Serum or Plasma 1.7 mg/dL 1.8-2.4 [facility] ([facility]) ID Date Data Source [id number] 01/18/2021 10:38:00 AM EDT [facility] ([facility]) Name Value Range Interpretation Code Description Data Nadira rce(s) Supporting Document(s) White Blood Count 4.6 10 4.0-10.0 [facility] ([facility]) Red Blood Count 4.02 10 4.00-5.40 [facility] ([facility]) Hemoglobin 13.0 g/dL 12.0-15.5 [facility] [facility] Hematocrit 41.1 % 36.0-47.0 [facility] ([place] [facility]) Mean Corpuscular Volume 102.2 fl 80.0-96.0 [facility] ([facility]) Mean Corpuscular Hemoglobin 32.3 pg 27.0-33.0 [place] [facility] ([facility]) Red Cell Distribution Width 14.6 % 11.5-14.5 [place] [facility] ([facility]) Mean Corpuscular HGB Conc 31.6 g/dL 32.0-36.5 MEDE NT ([facility]) Platelet Count, Automated 161 10 150-450 MEDE NT ([facility]) Neutrophils % 65.3 % 36.0-66.0 [facility] ([facility]) Lymph % 18.9 % 24.0-44.0 [facility] ([place] [facility]) Baso % 1.1 % 0.0-1.0 [facility] ([place] [facility]) Eos % 1.3 % 0.0-3.0 [facility] ([place] [facility]) [place] % 13.2 % 2.0-8.0 [facility] ([place] [facility] Immature Granulocyte % 0.2 % 0-3.0 [facility] ([facility]) Nucleated Red Blood Cell % 0.0 % 0-0 MED ENT ([facility]) Neutrophils # 3.0 10 1.5-8.5 [facility] ([facility]) [place] # 0.6 10 0.0-0.8 [facility] [facility] Lymph # 0.9 10 1.5-5.0 [facility] [facility] Baso # 0.1 10 0.0-0.2 [facility] ([place] [facility] Eos # 0.1 10 0.0-0.5 [facility] ([place] [facility]) ID Date Data Source [id number] 01/11/2021 11:23:00 AM EDT [facility] ([facility]) Name Value Range Interpretation Code Description Data Nadira rce(s) Supporting Document(s) Magnesium [Moles/volume] in Serum or Plasma 1.6 mg/dL 1.8-2.4 [facility] ([facility]) ID Date Data Source [id number] 01/11/2021 11:23:00 AM EDT [facility] ([facility]) Name Value Range Interpretation Code Description Data Nadira rce(s) Supporting Document(s) Glucose, Fasting 108 mg/dL 70-100 [facility] ([facility]) Blood Urea Nitrogen 3 mg/dL 7-18 [facility] ([facility]) Creatinine For GFR 0.46 mg/dL 0.55-1.30 [facility] ([facility]) Glomerular Filtration Rate [facility] [facility]) <content>Units are mL/min/1.73 m2</content>
<content></content>
<content>Chronic Kidney Disease Staging per NKF:</content>
<content></content>
<content>Stage I & II GFR >=60 Normal to Mildly Decreased</content>
<content>Stage III GFR 30- 59 Moderately Decreased</content>
<content>Stage IV GFR 15-29 Severely Decreased</content>
<content>Stage V GFR <15 Very Little GFR Left</content>
<content>ESRD GFR <15 on MEMORY CARE PROGRAM RESIDENT</content>
<content></content> Chloride Level 106 meq/L 98-107 [facility] ([facility]) Sodium Level 142 meq/L 136-145 [facility] ([facility]) Potassium Serum 3.3 meq/L 3.5-5.1 [facility] ([facility]) Anion Gap 3 meq/L 8-16 [facility] ([place] [facility]) Calcium Level 8.9 mg/dL 8.5-10.1 [facility] ([facility]) Carbon Dioxide Level 33 meq/L 21-32 [facility] ([facility]) Ast/Sgot 30 U/L 7-37 [facility] ([place] [facility]) Alt/SGPT 19 U/L 12-78 [facility] ([place] [facility]) Alkaline Phosphatase 130 U/L 45-117 [facility] ([facility]) Total Protein 5.4 GM/DL 6.4-8.2 [facility] ([facility]) Bilirubin,Total 0.8 mg/dL 0.2-1.0 [facility] ([facility]) Albumin 2.2 GM/DL 3.2-5.2 [facility] ([place] [facility]) Albumin/Globulin Ratio 0.7 1.2-2.2 [facility] ([facility]) ID Date Data Source [id number] 01/11/2021 11:23:00 AM EDT [facility] ([facility]) Name Value Range Interpretation Code Description Data Nadira rce(s) Supporting Document(s) White Blood Count 4.0 10 4.0-10.0 [facility] ([facility]) Hemoglobin 13.5 g/dL 12.0-15.5 [facility] ([facility]) Red Blood Count 4.16 10 4.00-5.40 [facility] ([facility]) Mean Corpuscular Volume 102.9 fl 80.0-96.0 [facility] ([facility]) Hematocrit 42.8 % 36.0-47.0 [facility] ([place] [facility]) Mean Corpuscular Hemoglobin 32.5 pg 27.0-33.0 ME DENT ([facility]) Mean Corpuscular HGB Conc 31.5 g/dL 32.0-36.5 MEDE NT ([facility]) Red Cell Distribution Width 14.8 % 11.5-14.5 ME DENT ([facility] [facility]) Platelet Count, Automated 140 10 150-450 MEDE NT ([facility]) [place] % 13.9 % 2.0-8.0 [facility] [facility] Neutrophils % 62.9 % 36.0-66.0 [facility] ([facility]) Lymph % 20.8 % 24.0-44.0 [facility] ([place] [facility]) Eos % 1.5 % 0.0-3.0 [facility] [facility] Baso % 0.7 % 0.0-1.0 [facility] ([place] [facility] Neutrophils # 2.5 10 1.5-8.5 [facility] ([facility]) Nucleated Red Blood Cell % 0.0 % 0-0 MED ENT ([facility]) Immature Granulocyte % 0.2 % 0-3.0 [facility] ([facility] [facility]) Lymph # 0.8 10 1.5-5.0 [facility] ([place] [facility] Eos # 0.1 10 0.0-0.5 [facility] [facility] [place] # 0.6 10 0.0-0.8 [facility] ([place] [facility] Baso # 0.0 10 0.0-0.2 [facility] [facility] ID Date Data Source [id number] 01/04/2021 04:01:00 PM EDT [facility] ([facility] [facility]) Name Value Range Interpretation Code Description Data Nadira rce(s) Supporting Document(s) Cancer Ag 125 [Units/volume] in Serum or Plasma 145.7 U/ML [facility] ([facility]) THE CA 125 ASSAY IS PERFORMED ON THE [facility] BY CHEMILUMINESCENCE AND SHOULD NOT BE COMPARED INTERCHANGEABLY WITH OTHER METHODS. IT SHOULD NOT BE USED ALONE A SCREENING TEST OR DIAGNOSIS FOR THE PRESENCE OR ABSENCE OF MALIGNANT DISEASE. PREDICTIONS OF DISEASE RECURRENCE SHOULD NOT BE BASED SOLELY ON VALUES OBTAINED FROM SERIAL PATIENT SERUM VALUES. Magnesium [Moles/volume] in Serum or Plasma 1.6 mg/dL 1.8-2.4 [facility] ([facility]) Carcinoembryonic Ag [Mass/volume] in Serum or Plasma 5.2 ng/mL [facility] [facility] THE CEA ASSAY IS PERFORMED ON THE [employer] BY CHEMILUMINESCENCE AND SHOULD NOT BE COMPARED INTERCHANGEABLY WITH OTHER METHODS. IT SHOULD NOT BE USED ALONE A SCREENING TEST OR DIAGNOSIS FOR THE PRESENCE OR ABSENCE OF MALIGNANT DISEASE. PREDICTIONS OF DISEASE RECURRENCE SHOULD NOT BE BASED SOLELY ON VALUES OBTAINED FROM SERIAL PATIENT SERUM VALUES. ID Date Data Source [id number] 01/04/2021 04:01:00 PM EDT [facility] ([facility] Name Value Range Interpretation Code Description Data Nadira rce(s) Supporting Document(s) Blood Urea Nitrogen 4 mg/dL 7-18 [facility] ([facility]) Glucose, Fasting 98 mg/dL 70-100 [facility] ([facility]) Creatinine For GFR 0.46 mg/dL 0.55-1.30 [facility] Glomerular Filtration Rate Laboratory test result [facility] ([facility]) <content>Units are mL/min/1.73 m2</content>
<content></content>
<content>Chronic Kidney Disease Staging per NKF:</content>
<content></content>
<content>Stage I & II GFR >=60 Normal to Mildly Decreased</content>
<content>Stage III GFR 30- 59 Moderately Decreased</content>
<content>Stage IV GFR 15-29 Severely Decreased</content>
<content>Stage V GFR <15 Very Little GFR Left</content>
<content>ESRD GFR <15 on MEMORY CARE PROGRAM RESIDENT</content>
<content></content> Sodium Level 139 meq/L 136-145 [facility] ([facility]) Potassium Serum 4.0 meq/L 3.5-5.1 [facility] ([facility]) Carbon Dioxide Level 32 meq/L 21-32 [facility] ([facility]) Anion Gap 5 meq/L 8-16 [facility] [facility]) Chloride Level 102 meq/L 98-107 [facility] ([facility]) Ast/Sgot 28 U/L 7-37 [facility] ([place] [facility]) Calcium Level 9.6 mg/dL 8.5-10.1 [facility] ([facility]) Bilirubin,Total 0.8 mg/dL 0.2-1.0 [facility] ([facility]) Alkaline Phosphatase 148 U/L 45-117 [facility] ([facility]) Alt/SGPT 20 U/L 12-78 [facility] ([place] [facility]) Total Protein 5.7 GM/DL 6.4-8.2 [facility] ([facility]) Albumin 2.7 GM/DL 3.2-5.2 [facility] ([place] [facility]) Albumin/Globulin Ratio 0.9 1.2-2.2 [facility] ([facility]) ID Date Data Source [id number] 01/04/2021 04:01:00 PM EDT [facility] ([facility]) Name Value Range Interpretation Code Description Data Nadira rce(s) Supporting Document(s) White Blood Count 5.2 10 4.0-10.0 [facility] ([facility]) Hemoglobin 13.9 g/dL 12.0-15.5 [facility] ([facility]) Red Blood Count 4.19 10 4.00-5.40 [facility] ([facility]) Mean Corpuscular Hemoglobin 33.2 pg 27.0-33.0 [place] [facility] ([facility]) Hematocrit 42.6 % 36.0-47.0 [facility] Mean Corpuscular Volume 101.7 fl 80.0-96.0 [facility] ([facility]) Red Cell Distribution Width 15.5 % 11.5-14.5 [place] [facility] ([facility]) Mean Corpuscular HGB Conc 32.6 g/dL 32.0-36.5 [facility] ([facility]) Platelet Count, Automated 152 10 150-450 [facility] ([facility]) Neutrophils % 66.1 % 36.0-66.0 [facility] Lymph % 20.8 % 24.0-44.0 [facility] [facility]) Eos % 0.2 % 0.0-3.0 [facility] [facility]) [place] % 11.9 % 2.0-8.0 [facility] [facility]) Immature Granulocyte % 0.4 % 0-3.0 [facility] ([facility]) Nucleated Red Blood Cell % 0.0 % 0-0 [facility] ([facility]) Baso % 0.6 % 0.0-1.0 [facility] [facility]) Lymph # 1.1 10 1.5-5.0 [facility] [facility]) [place] # 0.6 10 0.0-0.8 [facility] [facility]) Neutrophils # 3.5 10 1.5-8.5 [facility] ([facility] Baso # 0.0 10 0.0-0.2 [facility] [facility]) Eos # 0.0 10 0.0-0.5 [facility] [facility]) ID Date Data Source [id number] 12/22/2020 10:15:00 AM EDT [facility] Name Value Range Interpretation Code Description Data Nadira rce(s) Supporting Document(s) EGD [facility] UGCIBo4zMuJVZlPxPPNcPzfRNTofHEwxQRVdI5W1EXjtUg9EZPrrswYgAYKyXf1+VCMsXQ4enn7tDXEa gMy [file] R8+vNN4b8bGlfr/mWEWqxR9gjKgj9W9/vKVzin [file] Band Nailer+RsuO5PHtFeoMHcB2jbvgr+GRPFvhUB0rblt3huyPOtoKXfdzeGmruHaKwTAm4kD5VoAq/1u3GprvB [file] Jeremías/3BjZniOKcLu6qkIsCvS197s543aQGbmglLeiaHXz5uFyVXAfD0Ul0Fe+sNdalzjO0BZm9OSyJVdi 2cwFILzI/+1aqcQC/EETDw5OS48Ipwjak4iBXlVwi9 Lv4BiJUbWUsoQXbnZfS6Dd371Z6q2q2YzKd7QyiCMkrQEnFtsx8cpU+Bet9B3I+XgQdl0hiLGBZ8/uVK 2sCPZJ1Va9/aetyyBUHExLuX/DUb01LH6L17Kk6pYOuBXibdbM7+3QwB61liojusvqpz/rgbGgO21hmH vk5NTFDQftePGokgvBc7g8winLma4d6IvT9GgLR1mj 3gJS1JbAvZ/iM0/wtSbLKNeyufKj1fxzwt7tq/6hg+ng8bdB0FWWhIPMpAvVRmC03r8Eocb4FuK6nQF/ 2KuYvF2sigpLqs1kQJgtSpRZ2RdWgH7vKEmm82upE9NP86S/ZjIsL6pfkQ3uGDLG3gsrHpmp/Bhc9u6L /sCjk0kPEOZ2lHflIxGUKjA69/3d8eEhMhNOS37pnt rLLm1XjDwrP4/Isj6toRixEF8Nn2Qk+BIaaTdG3Qp/HwmjQswXbIRLql3leIt7fiWwNdlKTUqumhH3re QU3gO3qsSedM6oPuZCd97FjFdQSsgi5OfK/DwpGabyaS2u5yocZ6SL1QvCwnQRMZzQm+TvAfP78XqVSP 62jXNsGNKt4avOAi3fM+IzE9cTQWcqIG2GKxgQ2YKA +jLikA9j2G8tYxEmh2Awo5xO3KTHPwI7ZuNH5lhBq9X5kyCqKf6OxjC0ziKk+83+sRfZKAuwB+King+9U7 [file] o58cwR1XR0xUHSvVuVzU1Tluux1hZQNTLMJiGsiPD9ZPUzYoBvPh+NTz2UkjD4rgg7qPOEppN42G0+eulogio L/emergency medcl emt//acyjvQmK2Lb2QpF9OsL9wQ0y+EcUlrCx1EY [file] WLavsdSsPS6Tb1Z3Yj/j0fH+TKytTl9uPQOZ8mqC/EULOGIO+l24uGLLt9JekPL1wu4/2Lt3XHY4MgUYV8sEv xZ5pHx0q7NtdWNSkDlYn2k8tcKXQ9ivH6vxuoME5i7 nGA8hT2cfnF7Val8/rZ2+thM3ce5WKqh3dWDruWKEr58wNQaE8879KQ7j0YPO1c+omoVCp5dwHJyiBRY HZ61G1C2vddjehDRwR6aUxtRilVtu3gu+bEvlbQx/jcLIcCJQpNTJ+kZ+fihHnOxHEXf1xRXMliCZKEd Na/WChCjgwKf4eeqetLAN9ORfQZmIjgKJU7vjVLQhp b0wm3GGv7rmvyN2/NKT2KDK7bxWMgh2eKv68IECEmXf65T83ByqEoNKR3ujki3du8r0vVqoooHQpjCLF Q33aSvp31uLGrlPGXrB6QC/y4M+LgwZARt539DUkUH1uKrhJSKTbZLWgjjptV7Brr7BuVyDJsQzPIsAm sJFelQs//kSzpDa8UaCNu0alC6SaNyI/DLHnr8IVGg uWyF4ZC1RNM7wd0/Yy+VucErn2kDEU97AKCRUf5m2RZU9/nmx1VK6BEQj/EVDTnweCYmE0Es6bLjyvBl SALES OFFICE ASSISTANT/l7q0VYvce5evqVdE/YqyEKjmO3JifIo/RGQKeRR9xwg9sSuxx7UMWrNA5ocI93oelh+KXKGmiMFO [file] vSEJxBmvNGQ9lFiD9EJJ9fu1VeHZOvYMazqaJpPpaQSBlldLMagOdtRVCKNePlEmG2PU4DOUPVR5W= ID Date Data Source [id number] 12/21/2020 04:13:00 PM [facility] CYTOPATHOLOGY REPORTName: JIMMY PUENTESMRN: [id number] Number: [id number] Date: 12/20/2020 00:00Received Date: 12/20/2020 11:26Physician(s): MACHO QUINTANILLA MD HAGHIR, SHAHANDEH F, MD Specimen(s) ReceivedA: THYROID NODULE, RIGHT, FINE NEEDLE ASPIRATION, CONSULTATION (12/15/2020)[id number]: THYROID NODULE, RIGHT, FINE NEEDLE ASPIRATION, CONSULTATION ([id number],SMEAR; [id number], CELL BLOCK) 12/01/2020linical History:60 year old with [...] THYROID NODULE, RIGHT, FINE NEEDLE ASPIRATION, CONSULTATION (12/15/2020)[id number]: ACUTE INFLAMMATION AND NECROTIC DEBRIS IDENTIFIED (SEEMICROSCOPIC DESCRIPTION)B. THYROID NODULE, RIGHT, FINE NEEDLE ASPIRATION, CONSULTATION ([id number],SMEAR; [id number], CELL BLOCK) 12/01/2020: ACUTE INFLAMMATION AND NECROTICDEBRIS IDENTIFIED. Comment/cts/calReviewing [employer]: JOHN Licona(ASCP) (IAC)Davida Horne MDElectronically Signed By Jana Bermudez M.D. 12/21/2020 16:13:09The attending pathologist named above attests that he/she has personallyreviewed the relevant preparation(s) for the specimen(s) and rendered thefinal diagnosis. Microscopic DescriptionThinPrep smear of right thyroid nodule FNA, [id number], 12/15/20, showsscattered macrophages in a background of inspissated colloid,microcalcifications, abundant neutrophils and necrotic debris, which maybe a component of tumor or infectious process. No malignant tumor cellsare identified in this specimen. /ctsThinPrep smear, [id number], 12/01/20 and corresponding cell block, [id number],of right thyroid nodule FNA shows abundant neutrophils, few macrophages,and necrotic debris which may be a component of necrotic tumor orinfectious process. No thyroid elements or maliganant tumor cells areidentified in this specimen. /cts/mari Gross DescriptionReceived 3 slides and 1 paraffin block, 1 slide which is labeled"[id number], Jose Puentes" and 1 labeled "[id number] Jose Puentes,and 1 labeled [id number] Puentes, Maretta" the paraffin block is labeled"[id number] Dhaval Garcia" with corresponding pathology reports for [facility]St[facility], Department of Laboratories, [address] [place] [address]. . .This report may include one or more immunohistochemical stain results thatuse analyte specific reagents. All positi ve and negative controls havebeen reviewed by the attending pathologist and are satisfactory. The testswere developed and their performance characteristics determined by [facility] Pathololgy department. They have not been cleared or approved by [place] Food and Drug Administration. The FDA has determined that suchclearance or approval is not necessary. Name Value Range Interpretation Code Description Data Nadira rce(s) Supporting Document(s) ID Date Data Source [id number] 12/15/2020 03:16:00 PM EDT [facility] ([facility] ) Name Value Range Interpretation Code Description Data Nadira rce(s) Supporting Document(s) Microscopic observation [Identifier] in Unspecified specimen by Non- gynecological cytology method Laboratory test result [facility] ([facility], ) SPECIMEN: FNA of right thyroi d [...] cell block of FNA were sent to [facility] for consultation, they agree with the above findings. See consultation report [id number], scanned in EMR pathology module. 12/22/2020 - 075 Signed PENELOPE PATE (ASCP) 12/16/2020 0839 (Prelim) Signed Macho Quintanilla MD 12/22/2020752 ID Date Data Source [id number] 12/19/2020 02:01:00 AM EDT Laboratory [facility] Name Value Range Interpretation Code Description Data Nadira rce(s) Supporting Document(s) CALPROTECTIN FECAL [address] Laboratory [place] [facility] [place] [facility] Reference range: <=49Unit: ug/g REFERENC E INTERVAL: Calprotectin, Fecal by Immunoassay Less than 50 ug/g.........Normal 50-120 ug/g...............Borderline elevated, test should be re-evaluated in 4-6 weeks. 121 ug/g or greater.......Elevated Performed by [facility], [address] [place] [address] [email or web address], Terrance Guerrero MD, Lab. Director ID Date Data Source [id number] 12/13/2020 02:55:29 PM EDT Laboratory Al liance of [facility] SPECIMEN DESCRIPTION STOOLSPECIAL REQUESTS NONERESULT NEGATIVE FOR [...] rce(s) Supporting Document(s) SPECIMEN DESCRIPTION Laborator y [facility] C DIFF TOXIN B (NEG) Laboratory [place] an[place] of [facility] 027 NAP1 B1 (NEG) Laboratory Allianc e of [facility] COMMENT Laboratory [facility] IS CLINICALLY INDICATED, PLEASE CONTA CT THE MICROBIOLOGY LABORATORY ([phone]) WITHIN 3 DAYS OF THIS REPORT. ID Date Data Source [id number] 12/14/2020 02:32:47 PM EDT Laboratory Al liance of [facility] SPECIMEN DESCRIPTION STOOLSPECIAL REQUESTS NONERESULT NEGATIVE FOR [...] rce(s) Supporting Document(s) ID Date Data Source [id number] 12/01/2020 01:27:00 PM EDT [facility] ([facility]) Name Value Range Interpretation Code Description Data Nadira rce(s) Supporting Document(s) Surgical pathology study Laboratory test result [facility] ([facility]) FINAL DIAGNOSIS Thyroid nodule, cell block: Mixed [...] KIRBY MD 12/03/20201458 ID Date Data Source [id number] 12/01/2020 01:15:00 PM EDT [facility] ([facility]) Name Value Range Interpretation Code Description Data Nadira rce(s) Supporting Document(s) Microscopic observation [Identifier] in Unspecified specimen by Non- gynecological cytology method Laboratory test result [facility] ([facility]) SPECIMEN: FNA of right thyroi d nodule Specimen received in cytolyt-red SPECIMEN ADEQUACY: Unsatisfactory for evaluation CATEGORIZATION: DESCRIPTIONS: No follicular component in a background of abundant neutrophils, macrophages, and debris. COMMENTS: 12/02/2020810 Signed PENELOPE PATE (ASCP) 12/02/2020810 (Prelim) Signed LIANNA KIRBY MD 12/03/20201458 ID Date Data Source [id number] 11/30/2020 06:42:00 PM EDT [facility] ([facility]) Name Value Range Interpretation Code Description Data Nadira rce(s) Supporting Document(s) Laboratory test finding (navigational concept) 46.0 % 38.0-51.0 [facility] ([facility]) Laboratory test finding (navigational concept) 106 mg/dL 70-105 [facility] ([facility]) Laboratory test finding (navigational concept) 136 meq/L 136-145 [facility] ([facility]) Laboratory test finding (navigational concept) 3.0 meq/L 3.5-5.1 [facility] [facility] Laboratory test finding (navigational concept) 4.6 mg/dL 4.5-5.3 [facility] ([facility]) Laboratory test finding (navigational concept) 92 meq/L 98-109 [facility] [facility] Laboratory test finding (navigational concept) 30.0 MM/L 23.0-27.0 [facility] ([facility]) Laboratory test finding (navigational concept) 4 mg/dL 8-26 [facility] [facility] Laboratory test finding (navigational concept) 0.4 mg/dL 0.6-1.3 [facility] ([facility]) ID Date Data Source [id number] 11/30/2020 06:38:00 PM EDT [facility] ([facility] Name Value Range Interpretation Code Description Data Nadira rce(s) Supporting Document(s) CPK Creatine Phosphokinase 18 U/L 26-192 [facility] [facility] MB/CK Relative Index 5.56 [facility] ([facility]) <content>DIAGNOSIS CRITERIA</content>
<content>MMB ng/ml Relative Index (RI)</content>
<content>NON-AMI < or = 5 N/A</content>
<content>WILBURN ZONE > 5 < or = 4</content>
<content>AMI > 5 > 4</content>
<content></content> CK-MB Value Mass Laboratory test result [facility] ([facility]) Troponin I Laboratory test result [facility] ([facility]) <content>Troponin I Reference Interval f or Siemens [place] LOCI:</content>
<content></content>
<content>99th Percentile= 0.00-0.045 ng/ml</content>
<content></content>
<content>Risk Stratification:</content>
<content><= 0.10 ng/ml Decreased Risk for Adverse Clinical</content>
<content>Events.</content>
<content>0.10-1.50 ng/ml Increased Risk for Adverse Clinical</content>
<content>Events. Evaluation of additional</content>
<content>criterion and/or repeat testing in 2-6</content>
<content>hours is suggested to rule out myocardial</content>
<content>damage.</content>
<content>>= 1.50 ng/ml Indicative of Myocardial Injury.</content>
<content></content> ID Date Data Source [id number] 11/30/2020 06:38:00 PM EDT [facility] ([facility]) Name Value Range Interpretation Code Description Data Nadira rce(s) Supporting Document(s) Ast/Sgot 19 U/L 7-37 [facility] ([place] [facility]) Alt/SGPT 22 U/L 12-78 [facility] ([facility]) Alkaline Phosphatase 218 U/L 45-117 [facility] ([facility]) Bilirubin,Total 1.2 mg/dL 0.2-1.0 [facility] ([facility]) Bilirubin,Direct 0.5 mg/dL 0.0-0.2 [facility] ([facility]) Total Protein 6.3 GM/DL 6.4-8.2 [facility] ([facility]) Albumin 2.9 GM/DL 3.2-5.2 [facility] ([place] [facility]) Albumin/Globulin Ratio 0.9 1.2-2.2 [facility] ([facility]) ID Date Data Source [id number] 11/30/2020 06:38:00 PM EDT [facility] ([facility]) Name Value Range Interpretation Code Description Data Nadira rce(s) Supporting Document(s) Lipoprotein lipase [Enzymatic activity/volume] in Serum or Plasm a 47 U/L 73-393 [facility] ([facility]) ID Date Data Source [id number] 11/30/2020 05:37:00 PM EDT [facility] ([facility]) Name Value Range Interpretation Code Description Data Nadira rce(s) Supporting Document(s) White Blood Count 15.2 10 4.0-10.0 [facility] ([facility]) Red Blood Count 4.27 10 4.00-5.40 [facility] ([facility]) Hemoglobin 13.8 g/dL 12.0-15.5 [facility] [facility]) Hematocrit 42.7 % 36.0-47.0 [facility] [facility]) Mean Corpuscular Volume 100.0 fl 80.0-96.0 [facility] ([facility]) Mean Corpuscular Hemoglobin 32.3 pg 27.0-33.0 [facility] ([facility]) Mean Corpuscular HGB Conc 32.3 g/dL 32.0-36.5 [facility] ([facility]) Red Cell Distribution Width 18.0 % 11.5-14.5 [facility] ([facility]) Platelet Count, Automated 117 10 150-450 [facility] ([facility]) Neutrophils % 80.6 % 36.0-66.0 [facility] ([facility]) Lymph % 7.3 % 24.0-44.0 [facility] [facility]) [place] % 8.2 % 2.0-8.0 [facility] [facility]) Eos % 0.2 % 0.0-3.0 [facility] [facility]) Baso % 0.5 % 0.0-1.0 [facility] [facility]) Immature Granulocyte % 3.2 % 0-3.0 [facility] ([facility]) Nucleated Red Blood Cell % 0.0 % 0-0 [facility] ([facility]) Neutrophils # 12.2 10 1.5-8.5 [facility] ([facility]) [place] # 1.3 10 0.0-0.8 [facility] ([place] [facility]) Lymph # 1.1 10 1.5-5.0 [facility] [facility]) Eos # 0.0 10 0.0-0.5 [facility] [facility]) Baso # 0.1 10 0.0-0.2 [facility] ([place] [facility]) ID Date Data Source [id number] 11/09/2020 07:54:03 AM EDT [facility] [place] Name Value Range Interpretation Code Description Data Nadira rce(s) Supporting Document(s) *Follow Up Visit DONA v1 [facility] ISELA LFHMJe8qSzFYRmVkh9qhGLeyLNDzf8JuAZf2NW1CN967vLC6xDtmoZFpqCVdOsf9DPquNxWolJV4wrlU tKQ [file] 4xC/UXN75mtri+2d/hiAW2fpMZR2nA1L4s83fcj7g0QTSkqx7XpUuJK+pJB98PXFyxir5c9QPFMO9/color receiver [file] pressure supervisor//QvpuOVf0v+gclpoakvQ9q/CcwMxz1lutJy2s2 [file] YARPABpeL5f8OJC3DZ9GIw0GDp8Mq0CcfkS0ueXoJZneTNQiEEmFCyZkKG8CMUo= ID Date Data Source [id number] 11/01/2020 09:59:00 AM EDT [facility] ([facility]) Name Value Range Interpretation Code Description Data Nadira rce(s) Supporting Document(s) Blood Urea Nitrogen 7 mg/dL 7-18 [facility] ([facility]) Glucose, Fasting 80 mg/dL 70-100 [facility] ([facility]) Sodium Level 138 meq/L 136-145 [facility] ([facility]) Creatinine For GFR 0.54 mg/dL 0.55-1.30 [facility] ([facility]) Glomerular Filtration Rate Laboratory test result [facility] ([facility]) <content>Units are mL/min/1.73 m2</content>
<content></content>
<content>Chronic Kidney Disease Staging per NKF:</content>
<content></content>
<content>Stage I & II GFR >=60 Normal to Mildly Decreased</content>
<content>Stage III GFR 30-59 Moderately Decreased</content>
<content>Stage IV GFR 15-29 Severely Decreased</content>
<content>Stage V GFR <15 Very Little GFR Left</content>
<content>ESRD GFR <15 on MEMORY CARE PROGRAM RESIDENT</content>
<content></content> Chloride Level 98 meq/L 98-107 [facility] Potassium Serum 3.3 meq/L 3.5-5.1 [facility] ([facility]) Anion Gap 11 meq/L 8-16 [facility] Calcium Level 9.2 mg/dL 8.5-10.1 [facility] ([facility] Carbon Dioxide Level 29 meq/L 21-32 [facility] ([facility]) ID Date Data Source [id number] 11/01/2020 09:59:00 AM EDT [facility] ([facility]) Name Value Range Interpretation Code Description Data Nadira rce(s) Supporting Document(s) Thyroid Stimulating Hormone 3.050 uIU/ML 0.358-3.740 [facility] ([facility]) Free T4 1.66 ng/dL 0.76-1.46 [facility] ([facility]) ID Date Data Source [id number] 10/21/2020 01:51:25 PM EDT [facility] Name Value Range Interpretation Code Description Data Nadira rce(s) Supporting Document(s) *Follow Up Visit DONA v1 [facility] OQXXXe8cRlZATuZrf3mhPZkxAZDuk5QmEDa0GO3OF2CgE4RHHYclmNYbX47mLYSzrBVlvo1CF8H3dOSl gL0 [file] nw0KqPaO94pnWy1l08gcsx1R29LCK51U1K70Ex1AFB/GdH3zkj/O9sb5DV3E0Z1cXtUh5//staff trainer/TwPy6T [file] Sc/Upper sorbian/9axvoXiSjcJvBitZqcV8CGb92Ohjddk/oGNMGNeE+wT16fKAOKG9Az5XfVA6GDyJikx1l2+og2 ax5d0CtDG1GSQ/MP1KPJ3/AN2Zk8qlgMW+uCQSvv3552w3DA0ankl60jm2Z/+aiL+AebA31FphjE5THa xzYc7BTlocgeWpG/qc3GC9ZV3dQ+nnjE1XWfnufqz2 DAypR1/oPTrPAzLhe/E4lHBspFaWnjQoi2W1fpRk2Urj4V4cxXIqRN1Moglve9W9qWgFsB1W/zmgXB4f eqhjJO84VCS7oOrOf66zC8X2mbILf/7vq8J5M1U8QhGuWYmjRmSc3jQKM+F+Junaid+TwV79i4Ni0E+bVFM [file] 1ia8uwb244LUc5x51g85qr/TEuB+fP4X42NT7YVuhtwdAU+3SjSM8+rn nursery/XvhPSR07MwpCd1X6C95p7m [file] qzChRVI9HAGtZc0NVs7CMr4Px7NaglX0xqYpEFbfANK1BhXRWmRtJN8OBAf= ID Date Data Source [id number] 10/21/2020 03:38:24 PM EDT [facility] [place] [facility] SPECIMEN DESCRIPTION STOOLSPECIAL REQUESTS NONERESULT NEGATIVE FOR [...] rce(s) Supporting Document(s) SPECIMEN DESCRIPTION Laborator y [place] [facility] C DIFF TOXIN B (NEG) Laboratory [place] [facility] 027 NAP1 B1 (NEG) [facility] [place] [facility] COMMENT Laboratory [place] [facility] IS CLINICALLY INDICATED, PLEASE CONTA CT THE [facility] ([phone]) WITHIN 3 DAYS OF THIS REPORT. ID Date Data Source [id number] 10/22/2020 02:26:45 PM EDT [facility] [place] [facility] SPECIMEN DESCRIPTION STOOLSPECIAL REQUESTS NONERESULT NEGATIVE FOR [...] rce(s) Supporting Document(s) ID Date Data Source [id number] 10/24/2020 04:56:30 PM EDT [facility] [place] [facility] SPECIMEN DESCRIPTION STOOLSPECIAL REQUESTS NONERESULT NEGATIVE FOR [...] Nadira rce(s) Supporting Document(s) [employer]OS[employer]IUM [employer] [facility] [place] [facility] NegativeReference range: Negative Perfor med By: [facility] [address] [place] [address] Dredge Engineer: Naa Pisano MD GIARDIA ANTIGEN Laboratory All iance [facility] NegativeReference range: Negative Perfor med By: [facility] [address] [place] [address] Dredge Engineer: Naa Pisano MD ID Date Data Source [id number] 10/07/2020 09:46:33 AM EDT [facility] Name Value Range Interpretation Code Description Data Nadira rce(s) Supporting Document(s) *Follow Up Visit DONA v1 [facility] MACGUu2tKbBPLeRwp9cmQWevKVIqm3KyJOf3YR6AT909eQG8jOhzwCOrdWZwHul4NZosVKEtzX36qMJ5 2LT [file] OVOpl9J637H43/eT1+ZOdyT3qee1rlCn99T15Tw574 kk473AkGZdGMPmj6BEbswtc0EK9TjD3qj918k/D5f/3s09//ep/VQ195y4q/KPQVYO7xAaRsjUeBLXk9 UCeisAVoFiWHmXCxg24Gp+2lqxIWa09zAUQIkDKHjrkpT9Evf/88n6FmPW/e/CNfz1Ib+oyh0cLZPRk/ t7C9QHrFLvxjvw1tSk0+Fv7iaWx6/L1reX/8/w/G+8 TOI4eX8/Z+pC15iOjecJ0/aGz5/awWsHM0nKfm1DcD5mwgC+PvXs9/3p8MuNwK5dVHR1ukiCUqS109/u GXtQa72htM/vbiC1Op+NBxn0zO892/87pSEw552uKqjzX6oQ/M5rQxPwe26/7kfcK5m3OqLzvS/JL2j2 y3e1ApsTujS8+V1qrd4Jmj8sQFm1hZbQu+AH5x57aV 8/rXgqbwOD13xmpE2lCitPB6BA1VJ/4/zqa+MHq05lOL7V4S6ZOTs+bodP0ky5mhdXs5+ygtDR3a35al nIT+bG1z00baw8H+OT9y/+WIwvTti33nxyOa0gEDihSMRV7Uf02jwEo1J7k1h52bVS65PZlrxajlOP7w Z2LukbK5w6s9q+U5Ei9GLoHeQfbT2slgr52M+WxfR3 a4UP8mkE6BG8mbC12a26o72uiu6cy33Dh72WCagau61/ZqJW7Ca9nWw3ud3ie49fg702e+p6eWzeY800 6PP/d17jNUyS/Gsnjv94L8/eQ/fzigO0U9e7wB0ibN/HRrBS+mJ93PW0bi+XYSvX/32WeVe0OosS+nca dopyeNo/RyvIS+KMxb8hv8KGH9KxGIVd/N01X2x/nO /LYj969BT2L+PtNX2Tt5XmegzmrVM4+/Dh5zZyGg7uIVhmvPcp96Q8n42Vffl5cS+P1ZbzEFUqarzl2k wYeDadi2Upmx9PyUuNNX7gZb5Nwuz68RsY1jwg850mIJw/fePEnTz/odcZw6s/iJfcXks/gW7ibnUa5e p/y0KmA5jG0x4qX6kflEj8n3u5/color receiver/l4UX5c4se/s1 [file] RODBrGFmKH0nARpJ+5YxaPNv+vwh+content specialist/PFW7+Vq36 yr8uW0Og+LWjUsoBNsz2fphkqODlgNybLD7agmAHpf2cp5euNleQi99EsDdldknQjccVzD6r0sPYZY00 /+nv5SQaYZ0d75fvOCP3gcE4X15OZ5qCkGyAG+FZZ8+hnNSLFnjHo7cqaVhnRsvIcX3y7WAQGXlJk2hX 8hNvcFHDis6tbndMNfqWwdgqdpzM3rtwmTdBqNKbK3 19PKLOoijV2ZqM5CGIPdR9oXBOlSNXVqBwkzvZUCyaT0SoLf61gI8igwI9k8lnIFOGSaDtRTD8ogAgyP 4FPLptwfLuHniJYzdyAXDCYpGaPPDGOkSnALScDQWgXNMxWoG3TyEyIh6QEFArLZFkDUVsXwGwGVQbKE VlPLoxRVZfCWPsFvY9UZFsICPkLX2HBdVuKFZpZBZ1 OLznHCCbEVXjic7QUBOrXQRiEPP2QXIlYWMxGNUeZTegIMAxSFExPvJyNYFxAGFpLP6UQiKyGLJfMAS8 RVkhLJVfOLDaem0HWJWmMPNgMgEfExFbVRUhGWEjEMkzVMBiONE2IBW3ILMsUUExHT4CDxHwDWZnWPHs KLmoCMUzMSArzo8PTCMpHSPdQfKpCKHkDUSkTZLrVD soUBAfFBUuDKAiGBSiLRVfSN1WAaVySPLyATEkIsmjQSXzXKBmel0RUWJcWQLhUwD7OXFaOCJmIZRcPS boIMWeLMZjCzbhBJRxZNWxRO5UBaCkMLIiLSJaPpJwXZOsOPRcbk8GVFYiFEDoLdP1QRJqGQXeLKUlAD dlFSOkLHGuDfBdNJCiCAXlWL0RDpXbXDMiKSF7ZfFx JXVyADMizo8CIUChBNFzAsOxNrMcMNAcNXZuPTijZHYcZFJeBLO9BVPbGPSwAF6SGcSkAXSpDADyTBRz FCWdCNDhbb2IXQQdZNNiThB0ItFdOSQjDAXyFVdfJOCqCGK9MBxhUFBxCCVoXV8ENrLzNIOiANAwWAbc SXFvPYHypw7JMIIvQEA9Kwv2AWOrDYEyHRVzOXqkBS AeTIH1BMQ4XSZzTVMjUN2ANePhUGEtPDJvHYkfNYYzWPEyzl8LTYScWAI6FCF6WeIhHZCjTXNwOAfmBD JzKPF0Qdd8AOOiDNUaUT3DRfKrTQNfFAK3CGXiMZEgLNXflf2KATQmYCD0KtV0WLEkSDOuNRIgEKezFZ BiHFv2RpD3FQWaTMSjLZ7AWrWqNOEcZINnDDKhIFBp UJJvkt3KPPNaLDC8BvExWwSmVOBiOLMpGBhzIMRhDFl4YNC0RHGcSZXqHY4GHnNiBVRfLOW8SxFhGZXq JMEkic6GHSNxGCSlTTH1XZHgGPYiLHLqNHrnHPZfFKM4AVUdRQGbHLFvMW3EWqYzMPTcJFK6SrKzPMHa FWEdbp1LDAPcSJPnMEL8XOPoAYVbCRPsHTmdTFBxGB J0RHU3QCDlKZDsTE5VYnDtDRXkUOw1ZkWpAHUfHQWiww6UFTMwKTDrBAR3PEOuPBXpQNJrESixPNFnHB L2TIhlQZSaEACsKQ1MUtTsCSdnXTNXHve7LHumDi7phMHbMKLbEk7KU2flCo7aCEwmRKEHYKopY6j1DJ E3DT7DHz3RVz9Rn9StnaO2loGvTQbiFnZ0SrgFQaSxMY4FXUo= ID Date Data Source [id number] 10/02/2020 08:41:00 PM EDT [facility] BILATERAL SCREENING TOMOSYNTHESIS 3D [...] rce(s) Supporting Document(s) ID Date Data Source [id number] 09/24/2020 11:46:00 AM EDT [facility] ([facility]) Name Value Range Interpretation Code Description Data Nadira rce(s) Supporting Document(s) White Blood Count 7.0 10 4.0-10.0 [facility] ([facility]) Red Blood Count 4.00 10 4.00-5.40 [facility] ([facility]) Hemoglobin 12.7 g/dL 12.0-15.5 [facility] [facility] Hematocrit 41.1 % 36.0-47.0 [facility] [facility]) Mean Corpuscular Volume 102.8 fl 80.0-96.0 [facility] ([facility]) Mean Corpuscular Hemoglobin 31.8 pg 27.0-33.0 [facility] ([facility]) Mean Corpuscular HGB Conc 30.9 g/dL 32.0-36.5 [facility] ([facility]) Platelet Count, Automated 157 10 150-450 [facility] ([facility]) Red Cell Distribution Width 17.4 % 11.5-14.5 [facility] ([facility]) Neutrophils % 64.8 % 36.0-66.0 [facility] ([facility]) Lymph % 14.8 % 24.0-44.0 [facility] [facility]) [place] % 17.0 % 2.0-8.0 [facility] [facility]) Eos % 0.6 % 0.0-3.0 [facility] [facility]) Baso % 1.4 % 0.0-1.0 [facility] [facility]) Immature Granulocyte % 1.4 % 0-3.0 [facility] ([facility]) Nucleated Red Blood Cell % 0.0 % 0-0 [facility] ([facility]) Neutrophils # 4.5 10 1.5-8.5 [facility] ([facility]) Lymph # 1.0 10 1.5-5.0 [facility] [facility]) [place] # 1.2 10 0.0-0.8 [facility] [facility]) Eos # 0.0 10 0.0-0.5 [facility] [facility]) Baso # 0.1 10 0.0-0.2 [facility] [facility]) ID Date Data Source [id number] 09/24/2020 11:46:00 AM EDT [facility] ([facility]) Name Value Range Interpretation Code Description Data Nadira rce(s) Supporting Document(s) Phosphate [Moles/volume] in Serum or Plasma 3.6 mg/dL 2.5-4.9 [facility] ([facility]) Magnesium [Moles/volume] in Serum or Plasma 1.9 mg/dL 1.8-2.4 [facility] ([facility]) ID Date Data Source [id number] 09/24/2020 11:46:00 AM EDT [facility] ([facility]) Name Value Range Interpretation Code Description Data Nadira rce(s) Supporting Document(s) Glucose, Fasting 93 mg/dL 70-100 [facility] ([facility]) Creatinine For GFR 0.52 mg/dL 0.55-1.30 [facility] ([facility]) Blood Urea Nitrogen 4 mg/dL 7-18 [facility] ([facility]) Glomerular Filtration Rate Laboratory test result [facility] ([facility]) <content>Units are mL/min/1.73 m2</content>
<content></content>
<content>Chronic Kidney Disease Staging per NKF:</content>
<content></content>
<content>Stage I & II GFR >=60 Normal to Mildly Decreased</content>
<content>Stage III GFR 30- 59 Moderately Decreased</content>
<content>Stage IV GFR 15-29 Severely Decreased</content>
<content>Stage V GFR <15 Very Little GFR Left</content>
<content>ESRD GFR <15 on MEMORY CARE PROGRAM RESIDENT</content>
<content></content> Sodium Level 142 meq/L 136-145 [facility] ([facility]) Chloride Level 104 meq/L 98-107 [facility] ([facility]) Potassium Serum 3.6 meq/L 3.5-5.1 [facility] ([facility]) Anion Gap 5 meq/L 8-16 [facility] [facility]) Carbon Dioxide Level 33 meq/L 21-32 [facility] ([facility]) Calcium Level 9.3 mg/dL 8.5-10.1 [facility] ([facility]) ID Date Data Source [id number] 09/23/2020 08:30:00 AM EDT [facility] Name Value Range Interpretation Code Description Data Nadira rce(s) Supporting Document(s) EGD-Sigmoidoscopy [facility] MZCVCc3kJbHHJhHzOTSxGwmKWVorKXohHCGtI7P2JIisKh5JYXpqpfFdTLFvIf4+PPZuJY0jdl4qVNBo gMy [file] remote sensing analyst+hBn4MyMskB+MIjkYvXaLn9+ejJVftW8pdauLVrHpy6t9kmeVCY9iPuD/MI7k+/3qVCAJo/Ne4Rt1t [file] Ce3zTcUyJCdGP+3cTQNhE1IGgyofAW6CsURo8j5wYFB1ygGzyL6rl95FUZK+nEV0A+1D3Pv9qiuN+valve maker [file] Seng+dgNMTh3cT1bSNpNxj7yZJvzaYHZy+oYVBk3kCstAa/y6lDLRsTjopeeCXZ8OD8mWHuW0cCLY2eJV YpouiHXDhf9l0vVf9c5Pr8QMKjjXBPuxS1Qz4xTHJ14WMfrOslX4pjLEYNLpyiWuwHSufgTe/6vJ4K3S yFmc4LLMu3gI5qiSIxb/sAZITpffx/KRQjNYEm40V7 dZ9x6h5d5hNoOzepbmnup8+JVAr7Mi/o+9AN1lhVmnpXeMbwvE8b/nLnPvQdGvfcV+3gzv2BRXfmD7EZ 9Sil5Rufxj+OuUf24MELVsa4COld8eA9hF4hAJKwfxpQs7YUaHHXT3fwoY9eX/SfwjGQH+tquRDAdWMh yxlLSEVIbxAb9S/tGv2vG2Vq6JNtl5CyQEnbRmMDdf EOuPU6ZD70I4vHKO5cnlMiHvJCTr2f1uDiy2VeDbUG8/TpwU7QTkEwXm1XaAZZg5FXX5ThJrK7kvFh/x HjCg/Fta3fIBsAsu9jv6r/corporate officer+k3pn9bcZNmZU3fnpxtjobR3zivQliQAH45nUWCMItjMC+lu1Rxv9U9 [file] hNBYRTOPGkk5GdopN7CZVLNrNE9A66LPBBU2f0zEyN 0IJInuTE4bhnDUNSdPp/rMMNajbdUF3N33lfaYbaFz+WNh7dAAMqOHFedEJBlOhi9IqAF2kVbjinenMx AocGLjU8YAM0JGHWWisEEKtH7Si36C8qlIhtyq94YVH7vXRzw3eWX2zjR0CJvzgCRP4s0VOeji8Awe9t NCj9S4VlrHXSxGOeQmyvDo8oIws3e4cY2xanUU0XcK mbMBGpDWkb1VFIc4ybzrKYfDhKnqo9ujdYKgg2vdHaqVK7Z0qwWoROmIfmRckhr8FJhOBqkGZnCocWha 79d82iTshQBq43FSoAAErt6dX6NwKvm7YdBPdkMXmA5I6lraBI9ajfrTtByCpMhwCzElQiLhyd6k9Bsj dm0hwaqqPNopLUFadVHTIIXM9flCpjCCrEaqt1AiU/ E6PLjG4RRV5yqtU4UeBg3Q5L291xt2L/2kV8P/OTGRhO4+BuHKD02gKf54VOOoB6heMsdQY02xrqdD2E AJIXengJrQ64Shry6/aE9dbbMgZTZVszYctzZQIjPb3u0NlaQd8FoKPuvgFF8ra4BVNFmpfT9vPFGe6W msISIgysrmZ5BVZu7jhrsRZ9MZNtpXtgyomWyxM4+p Vfdc73X1qH1ENP5j12PmeNegCBHL7P69mRp8rFbpupFBN/71V20HFhas4VGGCC20ba0UzsT8PNS/+briquette machine operator [file] KmZrkL6f8oCTf+vokclmxxWvSLCO5zgwatMOqfGZN0K25a5L7kLoA+hZuIFjKmwGc9DXHvQFp99+stove cleaner/ [file] R/+rDqnn6KVMlErEgtS7dpzOKiFahJ1UNcvYJnJ9mfKvIz58oXDPApNecy3RiEyghaeQVCyMUw+h+yardage control clerk [file] ptkITu3rkMKmOs7xKZtGUrjzL7vbJf4f6MqJENT5YT1pp/4E1t8f5UD7J4Di6k3LJ283s715AQkc/+Band Nailer [file] staff trainer+elSeEC/cLhJyCF3k+rW+moFMtvcdhcULG+wcXUGsti8KpowvT5eo9BWbXutMmL1aC/j8081M9aIs5 [file] XaK7CJimOcIfHSgtfNp3rxjw1e3V8tm7sme6ROHR6Wpe3hUdvB36LKylOIb097l7hJmrD1dNLs8nt+remote sensing analyst [file] oCUzXYlm7d5xEmfe3vj+Supervisor Shaving And Splitting/I9alvRADtP82DlsElK74ZL8ki+7oTwa9P9slaK0AAbXZZwGBtGtXhox1d [file] +OTCLGcXXPt9vWu1eSh1ORZUch/g/remote sensing analyst+CCSsH0H62O8bgrDnTtpF6nBWSPz4pMUayeKb/3CVGGlYFtGc [file] UgBeOhpTMWXjy3hNzrXxsfzlDbYybmGx3he9g7qIKuBjfJWS18gikydhghtFkZYE3aLvwFJLgPLQ+executive admin [file] ///y+I/m/+Ptp2hH99wVe8PgMWwkFcOnpMYBs [file] N9MKjuHJUJQu== ID Date Data Source [id number] 09/20/2020 12:21:00 PM EDT [facility] Name Value Range Interpretation Code Description Data Nadira rce(s) Supporting Document(s) SARS coronavirus 2 RNA [Presence] in Res piratory specimen by KARLA with probe detection NOT DETECTED [facility] This lab was reported by [facility] [place] [facility]. ID Date Data Source [id number] 09/17/2020 01:15:00 PM EDT [facility] ([facility]) Name Value Range Interpretation Code Description Data Nadira rce(s) Supporting Document(s) Blood Urea Nitrogen 2 mg/dL 7-18 [facility] ([facility]) Glucose, Fasting 96 mg/dL 70-100 [facility] ([facility]) Creatinine For GFR 0.51 mg/dL 0.55-1.30 [facility] ([facility]) Glomerular Filtration Rate Laboratory test result [facility] [facility] <content>Units are mL/min/1.73 m2</content>
<content></content>
<content>Chronic Kidney Disease Staging per NKF:</content>
<content></content>
<content>Stage I & II GFR >=60 Normal to Mildly Decreased</content>
<content>Stage III GFR 30- 59 Moderately Decreased</content>
<content>Stage IV GFR 15-29 Severely Decreased</content>
<content>Stage V GFR <15 Very Little GFR Left</content>
<content>ESRD GFR <15 on MEMORY CARE PROGRAM RESIDENT</content>
<content></content> Sodium Level 143 meq/L 136-145 [facility] ([facility]) Chloride Level 107 meq/L 98-107 [facility] ([facility]) Potassium Serum 3.4 meq/L 3.5-5.1 [facility] ([facility]) Anion Gap 6 meq/L 8-16 [facility] ([place] [facility]) Calcium Level 9.0 mg/dL 8.5-10.1 [facility] ([facility]) Carbon Dioxide Level 30 meq/L 21-32 [facility] ([facility]) ID Date Data Source [id number] 09/16/2020 11:55:00 AM EDT [facility] ([facility]) Name Value Range Interpretation Code Description Data Nadira rce(s) Supporting Document(s) Glucose, Fasting 92 mg/dL 70-100 [facility] ([facility]) Blood Urea Nitrogen 3 mg/dL 7-18 [facility] ([facility]) Creatinine For GFR 0.58 mg/dL 0.55-1.30 [facility] ([facility]) Glomerular Filtration Rate Laboratory test result [facility] ([facility] [facility]) <content>Units are mL/min/1.73 m2</content>
<content></content>
<content>Chronic Kidney Disease Staging per NKF:</content>
<content></content>
<content>Stage I & II GFR >=60 Normal to Mildly Decreased</content>
<content>Stage III GFR 30- 59 Moderately Decreased</content>
<content>Stage IV GFR 15-29 Severely Decreased</content>
<content>Stage V GFR <15 Very Little GFR Left</content>
<content>ESRD GFR <15 on MEMORY CARE PROGRAM RESIDENT</content>
<content></content> Potassium Serum 3.4 meq/L 3.5-5.1 [facility] ([facility]) Sodium Level 140 meq/L 136-145 [facility] ([facility]) Carbon Dioxide Level 30 meq/L 21-32 [facility] ([facility]) Chloride Level 107 meq/L 98-107 [facility] ([facility]) Calcium Level 9.0 mg/dL 8.5-10.1 [facility] ([facility]) Anion Gap 3 meq/L 8-16 [facility] ([place] [facility]) ID Date Data Source [id number] 09/14/2020 01:00:00 PM EDT [facility] Name Value Range Interpretation Code Description Data Nadira rce(s) Supporting Document(s) Follow Up [facility] ULVSGs5xOaSFJiAqDAZaKuzGMZyhMDdpHQAsA2I9VKegFj4UELwetaGsPXGtYk3+DNMgIQ2nrq1aBODq gMy [file] lnYz4lRI49gopyZxP070UBjuJBUM+r7BJuTuyQM/c7N4BWyBewSNLJJJ69ZKyh+Supervisor Shaving And Splitting+olu9oM4A0dtOuP [file] K1s5YWhAaN35g0g66n1yNRNnVpv4uozof+Syriac+jVozUniwFZOEUMS1XmvZn/XJZbUHmyqJMT/U+MLlgTm pyNZRx94kxJ533Bwvk9x3d7PMb0D48a6o41DiNyJklYy4oUgvoJ7G5eyJrivP/JoEWRMTw6rKqRdz2Sm BQ7x9j/z43WCN4BXs4okLVsJGbRAwhyBkU4q52FXi8 Z3BynFZ6QHIWXY6pQL4eqjcvbr2hyE2eB6p3WVOqFo+orCER4yrXwCckXWRG34Qwku+IKoFtf7J14L7r aaghgSHM6Egh7TSHUO6Yx19pZFMbEM20wc/wwNMORyjo5qmCCqWjupd7QvuCOUtgITtdr/5YJ3fcjVJw 6gmCJK1MfpIiL0vuMhh4BbiFT+DQ5CBFg7WTymM1BD NLRrK88gEJ0UG1r4QgHccTbCH51TWBP4emW1OH5Fo9EsGlu8HPKQvY2ettWSukxtVnMWTOnyxZuvHz5t kTRXOIX5lu9vywpH/4hA9g1YhumNdGTwJoeuh3JD0q3yyUhgErVmLn5UWHMolTUv/mr9wF9wORRqGnui NkU3qRNlCyQs/7drkc1mm7//6v2PwD/eNizXa+oZ3j V2dljhtqmbFNM7Oz3QP8MgcewidefwpKwNV0rxaiQdrl/BRxi9+lb09hdwovzpcMDd63a+WvWma5makt ffgV0ccBBRxiecQeJK0IXcfHH7yy2sg7u6zgiI4ST3nt0Y+2XEZesboAraTqv/NM2OYbOJMK0VXlMFK8 /Jp4MOxx37q2gKuUBCvYvEoOrD/wnc9qWLXbOi8/JJ /OEfi2g/g8aF1dk26LhAmwdSvuUx2OjHulhuRk9FsmRGL1LqnVJ0+wYL6mD9zVL0z3HvQjrzAm3wmXbf 0W5vOirf33ETd5dObFkR3M270ez6G2zGdHkwH6ivDP1mDBkgPHtd0UqUGSdpgj3OMWv5dLh0dpy7sbqR Gr+6Q0eSJcYZ4roDWo0znSyWxW1iRSFWp6fT1+[place] [file] 18lDabDVhJQ3TkVBhDZLaN/lay out worker+1YjyroxWw5Fr5JS [file] LABELING STRATEGIST+CceKF+93ODGJSOUKgOoTaCn9TLFKLgWTON+Uqx051bjvNziNdOTUC7nRkCX1mRnIpOQjL8Qu3nCd Jfggvv149dF4qbrqenpjZduLseSAvUVLAYkiSIMnSuqYY3DjiZGlyp7frXE300ZllYL2XTBPeIE5hFh+ L3J4cF5ljg/Q3LjoEwRldMxFYnph4ZcXyO6hbyik70 rCkTG7mBDHODE+mBuvDIi+qAvUtKoZUzotGJHTaY8FtulHX7dCme2GP+LQmygv7fYyVyBYGctI5WRX/H iKUps/mw2qwX9gLd2maNLqT08nJgl8Da/oIIDw949Ox2dnMqzH0HYmS2VVzdZ8UzbBcHpRgiXfl1OFef 9yTsrOSR+wWZ+fbqspawihoUGFoDUfyRB55mul5xvv sU5OrI0WEpYCYTGWqTicL1OxcCY0dJRzQzY7sSHeBnVQmutGRaXMY9rXwVjXsPj577hkNaW78A+pjMP2 JANE/QxaeqGggaKz7wy+qoZK5gAzwIBlUpIhjHNx9fjbYtDOsTni5YL0psj0rNYN8HsTVersOnJf7S3v+ [file] Luis Enrique/4X0jBjIaY/V8hPfJY0YsQOBbL3AHLvp33kGPp9ZkYfcbn2nrRDSqch+8RLX0mhLG3KAbyhZMRHTT [file] 8IRO/0oX09ehrru9QwNynk7VwMi1vRdbbEWM+l [file] Ux Consultant/1oIQFVlEufogwEWSKpusRmzWA7YqVnMhcenRYqmAJxGNlQ1qX/LUIirgIi5df0enRk7OUjtjIB0B [file] 5UEmG+tS7kJhbrgrmMGPa1Q7zUkBKaewx7spOD [file] gmoJ7vlcURsOHa7Qitkjt4eGl3oFvUAn7bL3paYM8b+Uxz+ZWzH5EjZ7m4fX/zH7H7P/Cost Control Specialist/2utfD8q+ [file] barrel maker+RccbsybUK8Xn1R2asb2B+N7Gv/4KMcOEfInd9l819FfBVgAU9YpJdG5fc6/mvnHPivlT/IKmE7yV [file] weigher and mixer+nTrNAqsNq3bv6krt2R6CwvYX6zWp63LS20eDTV [file] YBX9ooOdoI5VNM7eu1FxST7Ki1JfnyY6rrZxFQbtOLHsROO2IJjjYGEDVx== ID Date Data Source [id number] 09/14/2020 11:04:42 AM EDT [facility] Name Value Range Interpretation Code Description Data Nadira rce(s) Supporting Document(s) *Follow Up Visit DONA v1 [facility] NMJRJc8tObSJGmGgk0ulNYlsICPsu5OfGTp1IP7KE2E8qAHlJ1CxoQQqr3aFDs8RQCrcETU8n6G2WL5F 5cG [file] KjVyjK950Svc5JfgsIWK2lbFh7/8MKZVoF93NzaSrkglvlyDD8WJ+I+8XI5Ghc8vEbWRbxD9pxjj/nighat p9i2u/6+PQx+NeDo0ZhjrwPSUBOqWYJlRPSNAQRqSF zHZgcbmCq6n68JWYpZ27CCLMstVNykBwtok06M2kS4qfoW77g7XF/wYIWsryeB+5HsWQgUdnNOfOZrKA BSKcRsfWA4wSZBerX6IGFCG2UqQ+Kf3XQfHchoiOg5vJJ8w02dxb9BJVNU5TTMlREHlNhCczvdt/KBxD EjCqDHsb/Cx+Fe3Rapb0BzvDHu2cnmXnTNp7mq7RFT MjmTz3Zn37av0YtIBuyMcrGMhIGBvgyxoNFDr1jzWpRSHjkVneSnA/llS8b943fzumlHRkiX/7X2+substation inspector [file] 5IPAovPtGjIQatWGSJCs2M ID Date Data Source [id number] 09/11/2020 02:24:00 PM EDT [facility] ([facility]) Name Value Range Interpretation Code Description Data Nadira rce(s) Supporting Document(s) Bacteria identified in Urine by Culture Laboratory test result [facility] ([facility]) <content>FULL REPORT IN LAB NOTES (eCW a [...] FOR ESBL</content>
<content></content> ID Date Data Source [id number] 09/07/2020 06:26:54 PM EDT [facility] [place] [facility] SPECIMEN DESCRIPTION THROAT SWABC ULTURE RESULTS NORMAL [...] Document(s) SPECIMEN DESCRIPTION Laborator y [place] of [facility] C DIFF TOXIN B (NEG) Laboratory [place] of [facility] 027 NAP1 B1 (NEG) Laboratory [facility] COMMENT Laboratory [place] of [facility] IS CLINICALLY INDICATED, PLEASE CONTA CT THE MICROBIOLOGY LABORATORY ([phone]) WITHIN 3 DAYS OF THIS REPORT. ID Date Data Source [id number] 09/08/2020 12:28:47 PM EDT [facility] [place] [facility] [facility] SPECIMEN DESCRIPTION THROAT SWABC ULTURE RESULTS NORMAL [...] rce(s) Supporting Document(s) ID Date Data Source [id number] 09/08/2020 02:34:43 PM EDT [facility] [place] [facility] SPECIMEN DESCRIPTION THROAT SWABC ULTURE RESULTS NORMAL [...] rce(s) Supporting Document(s) ID Date Data Source [id number] 09/10/2020 07:15:30 PM EDT [facility] [place] [facility] SPECIMEN DESCRIPTION THROAT SWABC ULTURE RESULTS NORMAL [...] Nadira rce(s) Supporting Document(s) CRYPTOSPORIDIUM AG Laboratory [place] [facility] NegativeReference range: Negative Perfor med By: [address] [address] Dredge Engineer: Naa Pisano MD GIARDIA ANTIGEN [facility] NegativeReference range: Negative Perfor med By: [facility] [employer] [address] [place] [address] Dredge Engineer: Naa Pisano MD ID Date Data Source [id number] 08/20/2020 01:24:03 PM EDT [facility] Name Value Range Interpretation Code Description Data Nadira rce(s) Supporting Document(s) *Follow Up Visit DONA v1 [facility] RWUJTd0oBjJBSwMqq4ayWLooQONei2QuIOi4AZ3SM1RcQ8LPGBrnfHHiF90sRJFddYOpvg1PF3JoU4Px KL0 [file] Vl5ie9T75OS5Ld2dm5il5PMh/Upper sorbian/6ultkGbJpvHySt wGvrG8GYf80Debyvi/oGNMGNeE+gC63zPDXGU8Ws3ElDK7JOxFjcb4h1+rk7pk1c7ZaBW6OMY/AX0XJK 4/IS5Db1dndBV+zLJMhm5652j4AE4esvz15zg7X/+aiL+StsI55TkisJ6XIhtoJc4XEoqctjYbW/hk6I G1TU9dJ+ycgM1OUhsfjqw4KKykG8/oPTrPAzLhe/B2 bJXaiKsGmhWrk3N3jhUj8Zdi9U1isUOtOJ6Dodntw1Z5wJeChO8A/ovlZZ6pxaxwAP48TDY5qVhCd37z R1S1rhLXh/0pc8C8T6R3UuZgEApcKjBq5rELB+F+Junaid+WnW21v9Nv0I+bVFMuainMWoxyvL+kV8lubKO [file] YgBYXWDc8MytZyAQM8JXYyXd2CJj8BJb7Oq4ZdyxG0vdExHNtoRzS0LdGIFgIkNM9VBRw= ID Date Data Source [id number] 08/23/2020 11:48:00 AM EDT [facility] [place] [facility] [facility] - CORE SPECIMEN DESCRIPTION PERIPHERAL RIGHT ARMSPECIAL REQUESTS NONECULTURE RESULTS NO GROWTH 5 DAYSREPORT STATUS FINAL 08/23/2020 Name Value Range Interpretation Code Description Data Nadira rce(s) Supporting Document(s) ID Date Data Source [id number] 08/23/2020 11:48:00 AM EDT [facility] CORE SPECIMEN DESCRIPTION PERIPHERAL LEFT ARMSPECIAL REQUESTS NONECULTURE RESULTS NO GROWTH 5 DAYSREPORT STATUS FINAL 08/23/2020 Name Value Range Interpretation Code Description Data Nadira rce(s) Supporting Document(s) ID Date Data Source [id number] 08/20/2020 10:48:50 PM EDT [facility] [place] [facility] SPECIMEN DESCRIPTION STOOLSPECIAL REQUESTS NONERESULT NEGATIVE FOR [...] rce(s) Supporting Document(s) SPECIMEN DESCRIPTION Laborator y [place] of [facility] C DIFF TOXIN B (NEG) Laboratory [place] [facility] 027 NAP1 B1 (NEG) Laboratory [facility] COMMENT Laboratory [place] of [facility] IS CLINICALLY INDICATED, PLEASE CONTA CT THE MICROBIOLOGY LABORATORY ([phone]) WITHIN 3 DAYS OF THIS REPORT. ID Date Data Source [id number] 08/21/2020 12:18:16 PM EDT [facility] [place] [facility] SPECIMEN DESCRIPTION STOOLSPECIAL REQUESTS NONERESULT NEGATIVE FOR [...] rce(s) Supporting Document(s) ID Date Data Source [id number] 08/20/2020 11:00:16 AM EDT [facility] [place] [facility] SPECIMEN DESCRIPTION MIDSTREAM UR INE,CLEAN CATCHCULTURE RESULTS >100,000 CFU/ML ESCHERICHIA COLI ESBL POSITIVE BY CONFIRMATORY METHOD >100,000 CFU/ML KLEBSIELLA PNEUMONIAE IMPORTANT NOTE FOR COMPLICATED INFECTIONS SUCH UROSEPSIS CEFAZOLIN SHOULD HAVE A KENIA OF LESS THAN OR EQUAL TO 2 TO BE CONSIDERED SUSCEPTIBLE. CONTACT MICROBIOLOGY FOR FURTHER TESTING IF WARRANTED.RESULT(S) CALLED TO AND READ BACK BY RACHEL AT 1057 AND FAXED RESULT [id number] ON [id number] UD [id number]. REPORT STATUS FINAL 08/20/2020ORGANISM ESCHERICHIA COLI ESBL [...] rce(s) Supporting Document(s) ID Date Data Source [id number] 08/16/2020 02:35:00 PM EDT [facility] ([facility]) Name Value Range Interpretation Code Description Data Nadira rce(s) Supporting Document(s) Laboratory test finding (navigational concept) 102 mg/dL 70-105 [facility] Laboratory test finding (navigational concept) 42.0 % 38.0-51.0 [facility] Laboratory test finding (navigational concept) 3.6 meq/L 3.5-5.1 [facility] Laboratory test finding (navigational concept) 137 meq/L 136-145 [facility] Laboratory test finding (navigational concept) 4.4 mg/dL 4.5-5.3 [facility] Laboratory test finding (navigational concept) 35.0 MM/L 23.0-27.0 [facility] Laboratory test finding (navigational concept) 96 meq/L 98-109 [facility] Laboratory test finding (navigational concept) 0.8 mg/dL 0.6-1.3 [facility] Laboratory test finding (navigational concept) 8 mg/dL 8-26 [facility] [facility] [facility]) ID Date Data Source [id number] 08/16/2020 02:19:00 PM EDT [facility] ([facility] Name Value Range Interpretation Code Description Data Nadira rce(s) Supporting Document(s) Magnesium [Moles/volume] in Serum or Plasma 2.2 mg/dL 1.8-2.4 [facility] [facility] Lipoprotein lipase [Enzymatic activity/volume] in Serum or Plasm a 48 U/L 73-393 [facility] [facility] ID Date Data Source [id number] 08/16/2020 02:19:00 PM EDT [facility] ([facility]) Name Value Range Interpretation Code Description Data Nadira rce(s) Supporting Document(s) Ast/Sgot 32 U/L 7-37 [facility] ([facility]) Alt/SGPT 18 U/L 12-78 [facility] ([facility]) Alkaline Phosphatase 142 U/L 45-117 [facility] ([facility]) Bilirubin,Total 0.9 mg/dL 0.2-1.0 [facility] ([facility]) Bilirubin,Direct 0.3 mg/dL 0.0-0.2 [facility] ([facility]) Total Protein 6.2 GM/DL 6.4-8.2 [facility] ([facility]) Albumin 3.1 GM/DL 3.2-5.2 [facility] ([facility]) Albumin/Globulin Ratio 1.0 1.2-2.2 [facility] ([facility]) ID Date Data Source [id number] 08/16/2020 02:19:00 PM EDT [facility] ([facility]) Name Value Range Interpretation Code Description Data Nadira e(s) Supporting Document(s) CPK Creatine Phosphokinase 39 U/L 26-192 [facility] ([facility]) MB/CK Relative Index 2.56 [facility] ([facility]) <content>DIAGNOSIS CRITERIA</content>
<content>MMB ng/ml Relative Index (RI)</content>
<content>NON-AMI < or = 5 N/A</content>
<content>WILBURN ZONE > 5 < or = 4</content>
<content>AMI > 5 > 4</content>
<content></content> CK-MB Value Mass Laboratory test result [facility] ([facility]) Troponin I Laboratory test result [facility] ([facility]) <content>Troponin I Reference Interval f or Siemens [place] LOCI:</content>
<content></content>
<content>99th Percentile= 0.00-0.045 ng/ml</content>
<content></content>
<content>Risk Stratification:</content>
<content><= 0.10 ng/ml Decreased Risk for Adverse Clinical</content>
<content>Events.</content>
<content>0.10-1.50 ng/ml Increased Risk for Adverse Clinical</content>
<content>Events. Evaluation of additional</content>
<content>criterion and/or repeat testing in 2-6</content>
<content>hours is suggested to rule out myocardial</content>
<content>damage.</content>
<content>>= 1.50 ng/ml Indicative of Myocardial Injury.</content>
<content></content> ID Date Data Source [id number] 08/16/2020 02:19:00 PM EDT [facility] ([facility]) Name Value Range Interpretation Code Description Data Nadira rce(s) Supporting Document(s) White Blood Count 12.8 10 4.0-10.0 [facility] ([facility]) Red Blood Count 4.14 10 4.00-5.40 [facility] ([facility]) Hemoglobin 13.3 g/dL 12.0-15.5 [facility] ([facility]) Hematocrit 41.7 % 36.0-47.0 [facility] Mean Corpuscular Volume 100.7 fl 80.0-96.0 [facility] ([facility]) Mean Corpuscular Hemoglobin 32.1 pg 27.0-33.0 ME DENT ([facility]) Mean Corpuscular HGB Conc 31.9 g/dL 32.0-36.5 MEDE NT ([facility]) Red Cell Distribution Width 22.5 % 11.5-14.5 ME DENT ([facility]) Platelet Count, Automated 180 10 150-450 MEDE NT ([facility]) Neutrophils % 74.9 % 36.0-66.0 [facility] ([facility]) Lymph % 10.8 % 24.0-44.0 [facility] [facility]) [place] % 10.2 % 2.0-8.0 [facility] [facility] Eos % 0.1 % 0.0-3.0 [facility] [facility]) Baso % 0.6 % 0.0-1.0 [facility] [facility] Immature Granulocyte % 3.4 % 0-3.0 [facility] ([facility]) Nucleated Red Blood Cell % 0.2 % 0-0 MED ENT ([facility]) Neutrophils # 9.6 10 1.5-8.5 [facility] ([facility]) Lymph # 1.4 10 1.5-5.0 [facility] [facility]) [place] # 1.3 10 0.0-0.8 [facility] [facility] Eos # 0.0 10 0.0-0.5 [facility] [facility] Baso # 0.1 10 0.0-0.2 [facility] [facility] ID Date Data Source [id number] 08/13/2020 11:05:00 AM EDT [facility] ([facility]) Name Value Range Interpretation Code Description Data Nadira rce(s) Supporting Document(s) Thyroxine (T4) free [Mass/volume] in Serum or Plasma 1.73 ng/dL 0.76- 1.46 [facility] ([facility]) ID Date Data Source [id number] 08/13/2020 11:05:00 AM EDT [facility] ([facility]) Name Value Range Interpretation Code Description Data Nadira rce(s) Supporting Document(s) Thyrotropin [Units/volume] in Serum or Plasma by Detec tion limit <= 0.05 mIU/L 11.55 uIU/mL 0.36-3.74 [facility] ([facility] ) ID Date Data Source [id number] 08/13/2020 11:05:00 AM EDT [facility] ([facility]) Name Value Range Interpretation Code Description Data Nadira rce(s) Supporting Document(s) Cholesterol in HDL [Mass/volume] in Serum or Plasma 48 mg/dL 35-60 [facility] ([facility]) Cholesterol [Mass/volume] in Serum or Plasma 110 mg/dL 131-200 [facility] ([facility]) Triglyceride [Mass/volume] in Serum or Plasma 92 mg/dL 30-150 [facility] ([facility]) Cholesterol in LDL [Mass/volume] in Serum or Plasma by calcu lation 44 CALC 50-159 [facility] ([facility]) ID Date Data Source [id number] 08/04/2020 10:24:51 PM EDT [facility] [place] [facility] SPECIMEN DESCRIPTION STOOLSPECIAL REQUESTS NONERESULT NEGATIVE FOR [...] rce(s) Supporting Document(s) SPECIMEN DESCRIPTION Laborator y [place] [facility] C DIFF TOXIN B (NEG) Laboratory [place] of [facility] 027 NAP1 B1 (NEG) Laboratory [facility] of [facility] COMMENT Laboratory [place] of [facility] IS CLINICALLY INDICATED, PLEASE CONTA CT THE MICROBIOLOGY LABORATORY ([phone]) WITHIN 3 DAYS OF THIS REPORT. ID Date Data Source [id number] 08/05/2020 11:06:33 AM EDT [facility] [place] [facility] SPECIMEN DESCRIPTION STOOLSPECIAL REQUESTS NONERESULT NEGATIVE FOR [...] rce(s) Supporting Document(s) ID Date Data Source [id number] 07/26/2020 06:23:23 PM EDT [facility] [place] [facility] Name Value Range Interpretation Code Description Data Nadira rce(s) Supporting Document(s) SPECIMEN DESCRIPTION Laborator y [place] of [facility] C DIFF TOXIN B (NEG) Laboratory [place] [facility] 027 NAP1 B1 (NEG) Laboratory [facility] of [facility] COMMENT Laboratory [place] of [facility] IS CLINICALLY INDICATED, PLEASE CONTA CT THE MICROBIOLOGY LABORATORY ([phone]) WITHIN 3 DAYS OF THIS REPORT. ID Date Data Source [id number] 07/23/2020 08:27:12 AM EDT [facility] Name Value Range Interpretation Code Description Data Nadira rce(s) Supporting Document(s) *Follow Up Visit DONA v1 [facility] SEKPEv8zKzFWWmFtd4vqWPwvDGUoo2HjKFo3IP7VK1DqP6VxGKIrTHJOHKizTImoJTGiN1D4BHkoAr1B uZG [file] 1HPJHHN+UYVd0PtFXzGDXfEighgZYdsyY5pJ/sB2hBa67UWr6ih0E80XB0Ni3qc2oq8SEq/Upper sorbian/6ultkG kXcsCmNyaPyrQ6ZJf40Dmcxks/oGNMGNeE+eI08cKPQXN8Ix6CeJG2WJyXauo8v3+ip7gf4j2UoJU4CI P/RD0QIF7/SG1Ll7ajiBS+aZFOuy0288l4OX5orut0 0af3P/+aiL+OpiQ61AczoP9DShlbWk3BFwqntkFtJ/nk0QR1NV7xD+vajC0ZOlogpgx3DXfgA7/oPTrP AzLhe/S3fNBqzBzEtoIse6O7ugDo9Eoo1E1ekVPvWD9Zrlmkz5N7dXnOuF5M/giuIO1xtipqZW76ZKH1 nWeQx10lA4A5ipZMv/0ur7B3Q7O0PvPmWXkdQqRa5f HEB+F+Junaid+UrM63i7Gj7H+bVFMuainMWoxyvL+pH0krrWEzAo+tbh+mFslpx8dtcM3QjT9VLQD01qX+X [file] ZTBlEh7TP4gnLd1nTIbdSDWBPTa+Da9IBIdokBSbbZtqTMAPRzL4QhJ7AT5BLOAJH1ANIq== ID Date Data Source [id number] 07/22/2020 12:45:00 PM EDT [facility] Name Value Range Interpretation Code Description Data Nadira rce(s) Supporting Document(s) First Visit [facility] JNCUUb3uZnWIBcNhEXXiPasJEEapXPzmGWDtF6T2WLkwQl4PELntttBuUIYcFk0+WHSxUX9inz1wIMJl gMy 2nEFMkOrccY4QcBUMju19KQJXhPXvEKpRbDjVsGVTdFMP4GXKzUHJ5PwYsYmbhCH5nUNI4ZFNbYLhjQS BzKFZrMoDaBNA9Yb3pCDqsCPpmCr9BXD4xt6KlCXCfNUXtCdxZRQjzNNmnYMGpICYwHAQdB861lrAbJJ 7TwMVnUIg7FPYtAtQ8DJEgNtU6SOXkByHlVnTrBPAe P7Vfr430urHdnbU9ZN1EJ1JhPOG9XVp3A8meZuOoPKOtDJXxCG9kSwX1LHKeRm4DyPfqWWHbZFPeOq2Q iYb5GMD9ULCoUm9+Pj4+Rg7kmtYaYueBSBVrKE1rnp61YH4NpUTvVW1YCGsfK32mCQvaFa61REmqLWGg DyPiKJv8Dr5dQfXkv8CgQ1IgTMu6O1yXRtgqI8ExPD roNL4kVEF8JZHqKo5+Xh1sTRZkYA39ENPdQRABF4VwahEggcCkWLy2FQOxNh2+Ml7kmzGpMrnUUXRrZS 6ujr21AM1YXL1tfGzwUVX0VVcaK98wrRZeY5npQqXyL1PcbNncAGIuCV0cJ6ArMNsjSLQsEM3ltdEuaM 1VgVl7WERxTu9JsGO9MWTbN68xJZInWDZDDAUcw3Ox LM3Pb1ushyDlZSJlQT9SPZRaB6OMS2AzS4omdXosJEOgHN5YBBbxdXUiCZn0EX0TrXBtXAWlV81phN6j PS36XXm+XdP6rmXywV4PdJgzl6SQIA900an5dpP8UDAbDqyYBA002bAMAMVQQFkO6n9mhNR0asF9f2DL e0Eo7F1JFn41xi+zqitVLHxm32lpoxv71htPEaqxix /15vi2AZ4rWCYXhpZbnMSbvzKcYD4//jgxcyVZKiqZw9UUhYKYfbmzljiYfyzQvAwAdQNRvPuQSBeFb8 dPQECAnkVUUuSNBDe/wJt/GkF5/ik9Kb6uDE1bvUlNSL/f/C+Pdx8P2YBpRsh5LKUODNkeWbuyljJ/gB 4AQMFA+VcB/E0QZHKUSRWN90lcoYo/WMgtGKHA4ZSS [file] [place]//G2jQd9zwywKZaHlJm+lu7hvzJSgsLLLu9h1xY [file] jVqDSMFi0jcphWUf1BcoYEes6rC7rjdkQr7vt0CW7dyOwhAgPMdhO25hahIyys5lBQCwY3crLyur/SALES OFFICE ASSISTANT [file] 0OHhQjM+Band Nailer/7DUM8sq65pOu9xrit/O3vGsbL/6ZMml [file] 9k3H4/wKph3R05eHyghpRRWJ5v2H0KOp++NSdj [file] hvac service tech/r+E9OGicO2msbHAX/aOB0RwaqUAOVSs1o/iEZW36tJZW4YS8eb/aRz5u3Wg/iroTw3EecKZpeI33 [file] CAROL [file] JSjc8S0/oULL27cTe12YrKbjwRmRLRGDofU2UPJvxQtN0wK8IcffDP84a1qYzYoldfg+RPS2Xt8/remote sensing analyst+/ [file] 2ahVyiJK8eHQk/Supervisor Shaving And Splitting+lbYl/yOAtsru6WU5kqHCBnZEjSZv8+aY6P77OXCy5uCn0nkTdmiicl2HAoI80Ad [file] retail service representative+qkv+n4Q2X82MV2yb65zSf+S1MzS4TCoTxwW8DugQZUYI69fVS6H0POqIKhBeL9c8WuOFthg54I2n [file] customer assistance representative+DhCwBHZED5r7cPwGQONzmtRs7RebfQeTytE9L3 [file] FHHMZaEwECca+eKrnEdMFi8WdHqCGW78pGZ9KXPpXr/cWMfZOxIH6mUdWNKRV9edyOyoV7dIxJl57+Upper sorbian [file] p+qMa8piykcPcCDS4VX9LTmR1OhK6GM9twEjF6WGiTHn5L4vrLtTa5G3D3LJ8dRKW3AJUwpz4ivRx+Band Nailer 83iG9LT9krz3BAnvjl/c6Ox+8cWH6UZiTViCVcoMVJ zBft/6cB9NWMBc2N2uqLK01pNRJqGSxjRuXWmwH5g8TiKJiFP7XDR5ieaGZMhlFrGbKt3Xv4kFFkMOA0 Felicitas+tcJ4YxVBOmRyk/SJKwbMMH1IQSJjE/Aq9FAN9gOK5gi1KqFXxIsZmU7G+07gfAGmASFPOQt82LFb /8/ICSeyWUN2OLmpcAGguE6wLQw3wLCRQaFDOY9aFY C0mBOTJbwND9rG4Rync32+ij93FRs4h7aI7H3ne99oLmQ3VyT7IDjbqcRDuoXngWmsV7l4MLUA8mglvw G0zkwn4pRJpZ+8K19Y0mVvIJ73HmuIaQGecGPVe8T36WJFP4+Po/sLeEK9M0vRuegKSxbwvhDNmg6wlq pGXDbhHHH6bvQlgFZ70G1quVFDwK59xppynJrhalhM HqVkbK9wKkx3XbblS7wq1LAKGFC7bxQ2m5TTbLI4YNLb4u5k6tmOppvM+aFB6VqiYCwsuIW4ikQLfgcU YAfVlxF7jpsL5kUtmLxkep1W1NF0O3Z8xbDi4KH5MeD435OfG1SF6MrBZFmrQbM0cHatIHGxo9jOn1J/ bU/8l1ijgxCBF7Lb1Hg/D6JZAp8cmmiT+wvrW6daa2 tUcx1e4abMwEynLzJb9HFddGaLP+91RNUw1AFobc2pt9J/oqOkC7B6I7P3oXRkceWWFczGjyaPW6X0S9 U3l/LnEar8ip2Czlv/ao7czMVrls2Ri9Z74sAhZLfR+GMxuYHoRHRpx0b9J+58C520CrAsiRH0bSZ14p gbgpMAfzhoCiPXDhRLOfqy2yfzA+Mlx/p7FelBWEDs Svs57GtXaWLU9YnlBNecEkEG6+JseagkuX/1RUCTH/IaGZBfda36ChMlIahOeBXgLJx7dxy6tAIf8pwm e5Kru1DfnbX+OzMczbbQqlClE1grBlm32FK9o++bD6OijfKpVpNwHrM5VfmI1hoDawdVURSOxA7yMNTW ppYVPavxlCAMzFXUHgptdTVSShrbRJ+vQluzYimyx+ [file] civSZEDWjRvBgsmdHaWWj4rNIQ7LC/4L1Mv+dill/t+pgwnRhdcqzXFz2m1nTgCgSsp1l9+gYobOOBcQa6 Xg9gQi3C9GZfFl0eVUy/Tpl8Idnu+uw9sHGpYUSSlZ ChYqJi04e2b/E5ArWBpGTjEQKcsm3FEjU5um6+PMSi5eWFRtacAIB7RZlcmC39XwePwkf18iKnAj7UAP xKOJipMehoaFSsui36rKUKuUCJb19WZ1FXE2Ak3S6kym2faa0PsnR2mEs9tDz0fjNvA8s630KUhuBuff OnYsMhB+w/43INyFe0i2WeRxoLh0GFHqhQafXhQeyb UrRIaxubcsT9aM3Q00kNPMMm2gOTxXOh/OzVy06OgxBg0m80F4wGkQeaMhFwcFaOox0DfHOwhOaTkCys A9Yx7DzE62ZXML/L51kDhTIfX7ji3ROsTLp879Ypuu60aMNst1EcpaRhM+9Aa+DCXdr8UBIey1rJpVKz vKDewP9FAJdXtTnSb7I/wdld4XJ3/FtCv+Ogu0PbOk WLRG8VALxcLTRjP2xtAGZw6b0Jjzj72/bCydhNDF70VZ7qVx+UNbxmUZh98/6x6K+Ow5cC3UcjJBnNdZ 1XYGht05vHdRw0mgKJF9oDBzfgc6Wg3fmJz/CpjKDWHKbWCiGuPC6rrdH/eQx9Bh+UGXGuz5BI7kc9c/ mNVfmHg7IyXBc0D6zrc+Qq+wIQVykr2qxGxRhotQuJ dL001/DR1ZE9tfo9m09HYMoYA8g38NwIpN3ByvjZ0nTNMsrJVKxpm9Kfbf9NIuwKh1RbvF1L83Q3dFfv qucpc+C4+jF1Q/pNEtCe77HQJ3gCecERdsBfCVZw3cArKMAVPmyEKb0aDIapuoNU0nmtvzktN/jjvq/U Eb92xEX/irvin+g+4bT6Liu/81sHWSk8x2TuOu7MQdi/ LxzYbUs2peO4rSpX92W3WpzjleENQF4yWW/RXKw1qN1mg9xZKy5f7nCG1o72s3leL5iRnIfRwA694sN7 uFPkqJKfcHce+pjqh2OWdAml3QBiOWU+q7bK7blB6PhIN11av13xy6QF4LbfdmchA7R2CKGibywqMN7p 1x/NiDeh/Nu+aq0oXktys5dlEpwvMYmhj5/PEY0vwQ GXW4K5VCXe6rgS2EicSJhUCYbrB97OQ6zS8aDge5kLPNLl/P7S+/atFUNOVQ6goM/eQt9a8fOCvNh+Hd zzC4I7m53a/OIVQc4jEWDB8hiI2EG6WX6DXWh9ep7EZQf4bLDgttvydhFClwsPTs4oCLTbKaP8NXsMfg aSE5bvNNKOJKi+C0EMjRbC62UyWRXFvxZwxhi++oLT 1zuiOw7KsyJ+QLYnsDl6k5N53rRB5xJ4EE+qoxs1TlcTL11Y5ck1NCiUL5I8727PQpLAbOfGUa2ai1g9 K34oXCMbQ09s64gRCIqwaYeJG+E1QHwjfZ5KnwS00aeqWkOOjZ34+ouXREaS+dLy7mnsxWLnwSoLgltP gG0pcr7OPtbtO9JH5AzkNsz8uIjjsD2ECmy53+ssUH xsWhNs/xqayvcIr92TyBQNV4F2gNspW8PUoAlgDEoQDE58QXkIHMozOSKUT/JWzRAdZweAu7I810IJI4 3o+LY/E7A2urbzte2xciFSALT1B1ce1wq9PcRfJFTnQLhdE5fQyonYuKCPmaToGZSrR7f+M6BCpQp3qv 2EiTgtNC/nVRyTRGXb1A5vopY9cUDwqK+MzRcY+n92 IAlM8mA3NEFbjkYNURf9Nsq4ETf2jeuRC+t2/frxtolRBGW1AGIp6kbiux4wf/YYjuUnc5PJl8yqK3+c 3aSwEau8SPnWEZrpUk8WiskQ1XN5eVNKidPftH/wet process assistant head miller/Bqc0zuXz36p3/1P72nTbt2TSW3LsuyRyXCaaZ [file] 85X0WlncAQkJn5Sfe19w7WjKZ/lA8NY0WDHGC3m+To4ojkq27EgB+Kourtney/CDWLihu6rD+OFCIwQ+F/9zP j8gaC4LNPyK2Qc5oF+QXRg5t3omHTVq868pCmGUBkA4y1vr6hnj9yMdzkzTRWaC2p1afJi4M0k7cFL9q uKFt74aVfCFNO9VY5B5wbcyC6E339rGus9NseEImTS H2U3MRoYfIldUz/CcZOTucMFUU3aao99gxxmCw4tUHB1BJcT/wdznIH+W6Gs/S1owBhC+BL6jkSnEcuO FwGeK8Et3yyuqfa4ThUvWrm1NEORQ6b46OdE0+JYe3N+3EUbKQs61eE1b6Zabq1IQjyWIkI2q//k0bdE iJU1VgoffJn7xKQMVcbne5naYc5tlO8o3CTxVxEEWt pbgbndX+MDpjF9trFj2aS8V0OI9SoYUxDSr8pdNoji3JjbMT6tO+jZtod+nGABCg92Mf+5WufWSmnEkq bQHE+sApfplPZIKE7+LsT/8sb/Nhcl1fAAvtuqwBu104g89v5OKuGyHetMnQvUAE/Uz+2e9YSvS7ehf8 rY0yvV+u1kPXfsAtcHumYijOm1UI1vjQpNDqAV+6T5 S4BODnJ4QlZuFAZxVVAg/KwIbud0djOh1bn8hP1MQSweYZCFbMswPHxJ2oZzY2n+TUUeg6wywpfyRCiY qPP8rf+VxZ6QA17AoCqz6Pjsg3yaNep0tgaSF0J7WwI2mHq0oq3Dbr9U1Ny7w53jUukUZc6l97HUeS9s cmD/aGppA6MIYVuX6YQ5u5YC0qmfhb2vZbuwWE1qQX rpfhFl/koFiV219vfTSZFtzb//402oKZMXVx1hxWscKf0caLS/27zAiElwxzU3eYbZ/RiRAWNc3El3Md 8KlrSEngYllR8vJYOTq1EIRN2tmF3gcVPYddkLetl74N4gw+wPW7frm+[place]/IA4UoSa1Nb6IOCgDeAaV [file] Qhkksrij6tESs1sXg9vuGT3ZWOvJc9YAo8fQiMUYoGVqP60sXauNcLKJv0MJg+g+television news photographer/WVXhRyIxXnqM [file] 6DrypVFP9ubZXODUWbq8gnhTPNhIpptFjCRQ0Iz+staff trainer [file] vessel captain/7TN6H9cnSX3MzkUN7n056CjVPf84u2scpBL2Vk9u1ytt+ep3tFn5lEEPGOXvRzVCkIODGO1ArZa4 [file] KSvCTSImvAPt4EGO3pw8LbGXQnFXbnahRbAjqPOKhotXIlrOowNLHOOqRpSRs8KhdYSiKpAD5J ID Date Data Source [id number] 06/30/2020 03:33:00 PM EDT [facility] ([facility]) Name Value Range Interpretation Code Description Data Nadira rce(s) Supporting Document(s) Bacteria identified in Urine by Culture Laboratory test result [facility] ([facility]) Rx Nitrofurantion ID Date Data Source [id number] 06/18/2020 10:28:38 AM EDT [facility] Name Value Range Interpretation Code Description Data Nadira rce(s) Supporting Document(s) *Follow Up Visit DONA v1 [facility] KODPVp7cJxFTHxKyw1ijCQzbDJJks7ByCBx9NF9QK5DzDZkafwRtIVGkqeCgX6WbPXJfMWAHMGbnNMQz 5cG [file] aVx/PERIODICALS LIBRARY ASSISTANT/U6BKR/YDRj4YXMbYHbsB8Av14SIjBYeNwkdCBN0SEURFNs3O0+v2tuBKAd6cAoHAXm8FN9ZOc [file] CdL5lPN8gvxQ8GtDdkI2W2lvpvZAjo3qp/ixPBwbEg7XIIy0ESkucqRf5/+Delmar/OZvhjGjZFgOfSGI/N l5FvbvqzUN/aEakObdi3P+4XuJbTvaUi24Pax0PfA+ N2u6x/oLriuU8dX71D81h5kulGipJKZUgO57IH3X//NLrt62ectpqQTPXpV9E4Sz5kVETl9RTJp6/ne5 kTLUk2YWW/6yFscVL9vwzir4QuqykThR3j441+yCytlMukR9kP/QQvb5TzMDO2FA8xBJ38CfONfOCmAM offline editor+lno02sdzGrv0eOCqVxonr0B9nOOnKN1ofdX/kPs [file] NyAwIFINCj4+AQlLXkC7MFR9jXUbUh8FONK6HFI2EXiyGUQVAv0F ID Date Data Source [id number] 06/09/2020 11:15:00 AM EST [facility] ([facility]) Name Value Range Interpretation Code Description Data Nadira rce(s) Supporting Document(s) Reflex Urine Culture Laboratory test result [facility] ([facility]) <content>FULL REPORT IN LAB NOTES (eCW [...] FOR ESBL</content>
<content></content> ID Date Data Source [id number] 06/09/2020 11:15:00 AM EST [facility] Name Value Range Interpretation Code Description Data Nadira rce(s) Supporting Document(s) Appearance, Urine RFX Laboratory test result [facility] ([facility]) Color, Urine RFX Laboratory [facility] Specific [place] Ur Auto RFX 1.000 1.002-1.035 [facility] ([facility]) PH,Urine RFX 7.0 units 5.0-9.0 [facility] ([facility]) Protein, Urine Auto RFX Laboratory test result [facility] [facility] Glucose, Urine (Ua) Auto RFX Laboratory test result [facility] [facility] Urobilinogen, Urine Auto RFX 0.2 mg/dL 0.0-2.0 [facility] ([facility]) Ketone, Urine Auto RFX Laboratory test result [facility] ([facility]) Bilirubin, Urine Auto RFX Laboratory test result [facility] ([facility]) Leukocyte Esterase Ur Auto RFX Laboratory test result [facility] ([facility]) Nitrite, Urine Auto RFX Laboratory test result [facility] ([facility]) WBC, Urine Auto RFX 0 /HPF 0-3 [facility] ([facility]) Blood, Urine Blood RFX Laboratory test result [facility] ([facility]) RBC, Urine Auto RFX 0 /HPF 0-3 [facility] ([facility]) Bacteria, Urine Auto RFX Laboratory test result [facility] ([facility]) Squam Epithelial Cell Ur Aurfx 0 /HPF 0-6 [facility] [facility] Hyaline Cast, Urine Auto RFX 0 /LPF 0-1 [facility] ([facility]) ID Date Data Source [id number] 06/09/2020 10:34:00 AM EST [facility] ([facility]) Name Value Range Interpretation Code Description Data Nadira rce(s) Supporting Document(s) Platelets reticulated/100 platelets in Blood by Automated count 4.2 % 0.0-9.59 [facility] ([facility]) ID Date Data Source [id number] 06/09/2020 10:34:00 AM EST [facility] ([facility]) Name Value Range Interpretation Code Description Data Nadira rce(s) Supporting Document(s) White Blood Count 4.5 10 4.0-10.0 [facility]) Hemoglobin 12.3 g/dL 12.0-15.5 [facility] ([facility]) Hematocrit 38.8 % 36.0-47.0 [facility] Red Blood Count 4.29 10 4.00-5.40 [facility] Mean Corpuscular Hemoglobin 28.7 pg 27.0-33.0 [facility] ([facility]) Mean Corpuscular Volume 90.4 fl 80.0-96.0 [facility] Red Cell Distribution Width 14.0 % 11.5-14.5 [facility] ([facility]) Mean Corpuscular HGB Conc 31.7 g/dL 32.0-36.5 [facility] ([facility]) Platelet Count, Automated 94 10 150-450 [facility] ([facility]) Scan Verified machine results PLATELET COUNT LESS THAN 100, AND NEW OCCURANCE OR Neutrophils % 58.2 % 36.0-66.0 [facility] ([facility]) Lymph % 26.1 % 24.0-44.0 [facility] [facility] Eos % 1.3 % 0.0-3.0 [facility] [facility] [place] % 12.9 % 2.0-8.0 [facility] [facility]) Immature Granulocyte % 0.2 % 0-3.0 [facility] ([facility]) Baso % 1.3 % 0.0-1.0 [facility] [facility]) Nucleated Red Blood Cell % 0.0 % 0-0 [facility] ([facility]) Neutrophils # 2.6 10 1.5-8.5 [facility] ([facility]) [place] # 0.6 10 0.0-0.8 [facility] [facility] Lymph # 1.2 10 1.5-5.0 [facility] [facility] Eos # 0.1 10 0.0-0.5 [facility] [facility] Baso # 0.1 10 0.0-0.2 [facility] [facility] ID Date Data Source [id number] 06/09/2020 10:34:00 AM EST [facility] ([facility]) Name Value Range Interpretation Code Description Data Nadira rce(s) Supporting Document(s) Magnesium [Moles/volume] in Serum or Plasma 1.5 mg/dL 1.8-2.4 [facility] ([facility]) ID Date Data Source [id number] 06/09/2020 10:34:00 AM EST [facility] ([facility]) Name Value Range Interpretation Code Description Data Nadira rce(s) Supporting Document(s) Glucose, Fasting 87 mg/dL 70-100 [facility] ([facility]) Creatinine For GFR 0.75 mg/dL 0.55-1.30 [facility] ([facility]) Blood Urea Nitrogen 4 mg/dL 7-18 [facility] Glomerular Filtration Rate Laboratory test result [facility] [facility] <content>Units are mL/min/1.73 m2</content>
<content></content>
<content>Chronic Kidney Disease Staging per NKF:</content>
<content></content>
<content>Stage I & II GFR >=60 Normal to Mildly Decreased</content>
<content>Stage III GFR 30- 59 Moderately Decreased</content>
<content>Stage IV GFR 15-29 Severely Decreased</content>
<content>Stage V GFR <15 Very Little GFR Left</content>
<content>ESRD GFR <15 on MEMORY CARE PROGRAM RESIDENT</content>
<content></content> Sodium Level 142 meq/L 136-145 [facility] ([facility]) Potassium Serum 3.8 meq/L 3.5-5.1 [facility] ([facility]) Chloride Level 106 meq/L 98-107 [facility] ([facility]) Anion Gap 5 meq/L 8-16 [facility] ([facility]) Carbon Dioxide Level 31 meq/L 21-32 [facility] Ast/Sgot 21 U/L 7-37 [facility] ([facility]) Calcium Level 9.8 mg/dL 8.5-10.1 [facility] ([facility]) Alt/SGPT 23 U/L 12-78 [facility] ([facility]) Alkaline Phosphatase 93 U/L 45-117 [facility] Bilirubin,Total 0.4 mg/dL 0.2-1.0 [facility] ([facility]) Total Protein 7.0 GM/DL 6.4-8.2 [facility] Albumin 3.8 GM/DL 3.2-5.2 [facility] [facility]) Albumin/Globulin Ratio 1.2 1.2-2.2 [facility] [facility] [facility]) ID Date Data Source [id number] 05/25/2020 07:31:01 AM EST [facility] Name Value Range Interpretation Code Description Data Nadira rce(s) Supporting Document(s) AP - Genetic Counseling v1 [facility] MZKPCr0rPwIWBvPus6uaVQeeDMNiy6XuXAz9HS4MH9Lgeo2Fd8IvUYNqFNOXOTguOHzzOJQvW1W4YFau QRE [file] f3P+Sv/uusJfrpg/color receiver/82XXR/F5j7GPghRkE/uBHyaqb2jlRpMtGGBjmUXymIE03H/NjC6EFrNp/0mmp [file] YpxDnyZEQSGtB3HLqxIH7UEGHNJ7GSMt== ID Date Data Source [id number] 05/24/2020 10:53:00 AM EST [facility] LEG DVT INDICATION: COLON CA RIGHT LO [...] veins as described. Professional interpretation performed at [facility] . Name Value Range Interpretation Code Description Data Nadira rce(s) Supporting Document(s) ID Date Data Source [id number] 05/17/2020 03:13:11 PM EST [facility] Name Value Range Interpretation Code Description Data Nadira rce(s) Supporting Document(s) Progress Note [facility] GSLWNi9jXpJGDqTr37/XMBzqDHKmb6MsTTnjBYf0EPpnOHHnG6VrAOM5jE9dTNI0GJiAKsVpTkHmByJ7 lbm [file] offline editor+15PsSvn3tW2KblcI6rqUPP5igw9jTA1Gf8y5Fkn [file] ICAgICAgICAgICAgICAgICAgICAgICAgICAgICAgIC CfMNCdKHYaTUXkOWNvHJJhRTSsGBPsRTBxDKQdLYQiELWiXHOmFWJzIODdYWRaGZNpGHXtTIEdJW8DZG AgICAgICAgICAgICAgICAgICAgICAgICAgICAgICAgICAgICAgICAgICAgICAgICAgICAgICAgICAgIC AgICAgICAgICAgICAgICAgICAgICAgICAgICAgICAg RIOtXFYuDL6KKCErVLFqYJGoEJSxRSChYALsWXCrOWHmYLSzJNHfDCDhNLXwRGEfOGWtRXDrFRVqZMQb VJUiVSQgBHRbELGxPOYqTXJgGCMwMDZgYPDkTFTuMJSlKYToHUPcDHIoBCMgFQIoYB0FHHTfTBDkUGTy ICAgICAgICAgICAgICAgICAgICAgICAgICAgICAgIC AgICAgICAgICAgICAgICAgICAgICAgICAgICAgICAgICAgICAgICAgICAgICAgICAgICAgICAgICAgIA 0KICAgICAgICAgICAgICAgICAgICAgICAgICAgICAgICAgICAgICAgICAgICAgICAgICAgICAgICAgIC AgICAgICAgICAgICAgICAgICAgICAgICAgICAgICAg ITYkQHWlTKIdGC2BVKSbDQYaBPSpYUYsPOAaHMYfKLDwKTSzLOFjJTJsJRLxNJFdFOLyHBSiOCBfNVHl VDLkJHPnCAUpEQYhZTCmLEVjIQFtRUBwDXVbYGQoELRfRDSiEGDjXBFmQSNjWWAvARXbOU4VZKIbNAMy ICAgICAgICAgICAgICAgICAgICAgICAgICAgICAgIC AgICAgICAgICAgICAgICAgICAgICAgICAgICAgICAgICAgICAgICAgICAgICAgICAgICAgICAgICAgIC VrMX6PEZFdRXYzMUPbUKFhYDJpHABrJWIlMTMlVLGwZGLsNUNiLPNfRBQvJMGyVOTkHMVjZBKyPUXhKA AgICAgICAgICAgICAgICAgICAgICAgICAgICAgICAg VAHbWWPtQZWxOZWwOI5UFQNnILNyDHFaHTSnQQKxLHQsKELvFHIaBMBdUVBaCBMyCLKwYBJbMZLrFOFj JHHvSCMlRBOuRMMiRZOxRZZwSAMxKCFjADWeDNAtFAGkETQbGHXuNQCaWRFaSFRyTHVrKXWuHS9GGJ03 zCNjd1T9NLIyIO8dktm/Fz6FBGoyyeTdrZBsTM5DFl YlHC5iqa7WFeSmVK7bza8YZXfMCbMpL9A1eQExRQRuXSNBZzSgR74hWNgvNc15HZknKJJoIrEnVOp7Mg 3JXeUnO7iyCSFkYxF8DXAkXiI3JAHvUkO8QUXjJwXlZWCeGOLzTJEaLIELFJ9BOfUqC2YxxZ96ZJNAJf 4+EFyemiTgKfxEVqAmCPOxg7SiVPc1TI5XTIIfZdfd u8IdWgXgLSLWXYitQJ0BTVE1KGF8MWYrLj4AXHEkL561aoTvJH0ZIu8AOrLuRI1mjb8QJdBgYBNjJdvC Mkm6ZMtsMB3ZeBUjEZnLuf2jwuPcxwQQn2IrcwXlzRXDeFjxgZBEFZHmSEtxEV0LQYP2VEKdSCHqOzRb SYSqEVmrOVMXPGaFLoCcO1Hgf3AkFuV1NSDhUbYnIV anJZPlDbS2QK39sFpmXH9VCGQtWEWdJO60QMDoOMIjMt9MNf8JAoQbWF3vme3IUgZzRBLnZmzUCym0SG iwLY6DlHBzP8NrvIZrk3xYZeXbJ2SCTEEjTDBsHj3FXVHuIoIyUHLhRUxeIB5vYEHaZDAAoHxkidJ8WW 2LBG6tefRnUJ9WFfHqOm8tVx3KPeVlC0QtO6RoYYXh MUESFJkoZF3UEEvjXY3nSJ3Qv5IQuMXxiL9lpp2TKDWhQQQkQjhyqp0XYnlzR0J0hSsbHUArJqQzNLML UHesSB7WEGLcHPS3SBIgSzCcNZWTPfRiS60nGR9FU2Brq15sFmL2PKJqYtZcEBexAG35cTbawpGhpJAe xEtuMO1KNk1+DQplbmRvYmoNCnhyZWYNCjAgMzYNCj CaYEGtKAJuTQTjJtU3MeZeJb3MMNRzKUNsACMlHoRcXZWmVIXeNJykOKRoNUAkXYO5BIZvNGOlAV3VNu XhKHMxZWD6LdbaLIEjDQEjeh6GEOVxNPKdRZQ9MsByBDZkVVLjQXdvBWKpLOP0UHW0PDOuHYXmPX3XUz OqQIZoMCB7XBrgIJElWFWtaw0IETGaBIWyBzg3OKHe OHJxCBRfHZwaHYSnVUJ6QZJ7VSDoIPGyBR0LRqNdHMWnHAPjEWPdQLBmYDXnyu9IHGKkNLArIDS0GOWu TUHjVIEgJPoaKNPkOYQfWRWgOFXeISMiMJ4KUqDqXDJtQBLgPYXtSWPrGKYcsa2UWBFvRCMxPhp2NFSt XLRoQFYeHIbzDNCoIUSrJAsqSMYpQHAaAS9GIwDqBE FfHEZ8YENkDFMrTULmwx2KRPXmOPIaFBFcEfUlVOZgKGAlNCxvSZRbBXC3IjQlVRFqAQGzLM3UVpRsZQ PxNMSgVikrBQNqJJZkfl8PNCEvSKDqDeV7HDAoZIHrFCOnKRyeHPXmFYA2YhX5SMReSCMiZE1JNcTaPJ PiRST2BoocKZXsNUZuxw3OTHCbHMA4KlI6HmJaGXWb ULBaGWxmKURdQNB8SggaKHYaBVCzBD5JNxKdSQCdTJdvDSBiOWJlMXHval7QOLBeLVR6NPQ9PDVnJFAj OQGxGProKYLaFLG8CDPdFGLjTVPnPM3SLnUfTKAbGGqbNcIfQCTtETNzos0YXIXcXMT0TYB5GPRvLPNt XMKqHGntLSAtQKLkNQF4YWLrSAEfHV7QAgCuEDMxTM P8KtdmSFXoUNYgep2ECFQoPUQ7QIefACLbWQIuLBEdZZpeQGTbCOJsXhB3BOWtNCEyTU9FYxNnBJDlME Z9MEJzUCStQHXiqu9VWXGrHYE9Loo9XeXlUVZpZHFwDXftXJGuJYVtWJRjVIImOFMwRQ4QWlGcMCqgSK PZBvi9WZtzQ4j3XBNsJr8US9Jny1SvYhQdOABHAWyb LW0ngyNtSDNlGj2GX8zEGonxGhIgI2SfPYPpS1ElQrFqVDF4WABbRBZcVBRtOfV7DW4nUJW2OYM1DKS9 ICWdAFFrGQZ5VzCrVoXmCiKwLuTiWPJ1KfVhEJ4XVb6XMpL4MAQ1cKCrLn2BUHWkRpTDOcIvSD6MDXv= ID Date Data Source [id number] 04/28/2020 11:43:46 AM EST [facility] Name Value Range Interpretation Code Description Data Nadira rce(s) Supporting Document(s) Patient Education [facility] WXJCAk2iIfGALjJdu3rvSMbhWRFlj3DiGOv5WK8RD0Euya0Kk8SaYCQxAPBUKOwiKQOuFA3dKNIuI4Hm oKQ [file] Os4JgkHrZNGsQJVyUy4MUw4RSm2Yb5AghrI2gsQcUTb3HnE9Mr8OCLYZZ7RAVw== ID Date Data Source [id number] 04/23/2020 03:24:36 PM EST [facility] Name Value Range Interpretation Code Description Data Nadira rce(s) Supporting Document(s) *Follow Up Visit DONA v1 [facility] HOOOGa0lBcBBHoCci5koASfaXUHhx8PuPRd4TC2MO5NfV9PYCMgziIZwL26gLKKvkKAzax8BP9BoTMqz 1c3 [file] SmO659TkzRFq0GGZCyYPApLFOdqcK6028xnFuEdJJWfwrqDvS9g3lQ9XTlSFNtduXeX02gZF9Dl7n/offline editor [file] ZQTwSp5DX4frQx5nLUvcNRAFAQbuY1i1BNJ6OZ1Z Jd7JBc8Kx8TrvoX9dzFsBVhvDzMpAzTKUsKdFO8WHQo= ID Date Data Source [id number] 04/23/2020 04:04:00 PM [facility] CHEST PORT INSERTION INDICATION: Colon c [...] The specific port implanted was a 6.6 Ghanaian single lumen, open ended MedComp mini Dignity CT catheter. Fluoro time: 8.0 secondsNumber of images obtained: 1 Fluoroscopic personal supervision provided by Dr. Herrera. IMPRESSION: Sonographically assisted placement of a right single lumen chest port as described. Chest port may be used immediately. Procedure performed by Mary Giron NP. Professional interpretation performed at [facility] . Name Value Range Interpretation Code Description Data Nadira rce(s) Supporting Document(s) ID Date Data Source [id number] 04/23/2020 04:04:00 PM EST [facility] CHEST PORT INSERTION INDICATION: [...] The specific port implanted was a 6.6 Ghanaian single lumen, open ended MedComp mini Dignity CT catheter. Fluoro time: 8.0 secondsNumber of images obtained: 1 Fluoroscopic personal supervision provided by Dr. Herrera. IMPRESSION: Sonographically assisted placement of a right single lumen chest port as described. Chest port may be used immediately. Procedure performed by Mary Giron NP. Professional interpretation performed at [facility] . Name Value Range Interpretation Code Description Data Nadira rce(s) Supporting Document(s) ID Date Data Source [id number] 04/07/2020 03:05:00 PM EST [facility] ([facility]) Name Value Range Interpretation Code Description Data Nadira rce(s) Supporting Document(s) Potassium [Moles/volume] in Serum or Plasma 2.6 meq/L 3.5-5.1 [facility] ([facility]) BACK AND VERIFIED BY KB ID Date Data Source [id number] 04/07/2020 03:05:00 PM EST [facility] ([facility]) Name Value Range Interpretation Code Description Data Nadira rce(s) Supporting Document(s) CPK Creatine Phosphokinase 46 U/L 26-192 [facility] ([facility]) CK-MB Value Mass Laboratory test result [facility] ([facility]) MB/CK Relative Index 2.17 [facility] ([facility]) <content>DIAGNOSIS CRITERIA</content>
<content>MMB ng/ml Relative Index (RI)</content>
<content>NON-AMI < or = 5 N/A</content>
<content>WILBURN ZONE > 5 < or = 4</content>
<content>AMI > 5 > 4</content>
<content></content> Troponin I Laboratory test result [facility] <content>Troponin I Reference Interval f or Siemens [place] LOCI:</content>
<content></content>
<content>99th Percentile= 0.00-0.045 ng/ml</content>
<content></content>
[...] DONA v1 [facility] NFVFDv2nNwBRJhYvu2xcDIysCCCqf7PkATd9AU5GZ103jGM1tNknbFEcvEOrBsy1ZIxiI5J1bII7N16d xKQ [file] CAROL ANN+PDAwMEI+PDAwMjg+CjwwMDBDPjwwMDBDPjwwMD A6Pwn4EZUlUh21ZECiPi02TKFuSy0CJUShALH+PDAwMTA+PDAwQUQ+CjwwMDExPjwwMDExPjwwMDJFPg a8EDMxGl58KMEzTo81HZRfMe6NYIZwLSF+PDAwMTM+PDAwMzA+ElqtGYQ1KnzlCBU6HsavIKCcXbl8JM XxUJ17GISgRT82LYLkQk2FIMYxMCU+PDAwMTY+PDAw MzM+LmwsRUH3HjxcWVE7FnnfEOR1Vbb1CNVhNX66BLSwGC80GJQlZQ7QNBEkLKv+PDAwMTk+PDAwMzY+ TchzVRYWJvhvBHFZJpduCZD5Xwb3BACmSa86XGPxAw02JBYuJN2SCIEwLYW+PDAwMUM+PDAwMzk+Cjww KIKKKwqyTCQKZcxmESHJIvy1RLBwKC61KPBdPA13AR J0UP5ZGPRhDlB+PDAwMjA+BBSuK1H+LvblXSU8EbrwWGR8LpyzMLHfYji2UCRvHR14VRXrMD11FDA6Li 4KPDAwMjY+PDAwMjY+PDAwNDM+XuxbIHS9EjryBNX2DmfzCDF9Caa2KMAcOO12EBZpUY22FGD8YX7BTQ AwMjk+PDAwMjk+PDAwNDY+CjwwMDJBPjwwMDJBPjww [file] Kg1GEc6Xk1LwqhY2bmVyZNuzNES6QwGVJgJaKW8RBIc= ID Date Data Source [id number] 03/13/2020 07:28:35 AM EST [facility] Name Value Range Interpretation Code Description Data Nadira rce(s) Supporting Document(s) SODIUM 143 mmol/L (136-145) [facility] POTASSIUM 3.8 mmol/L (3.6-5.2) [facility] CHLORIDE 108 mmol/L (100-108) [facility] CO2 30 mmol/L (22-31) [facility] ANION GAP 5 mmol/L (7-16) L [facility] UREA NITROGEN 2 mg/dL (7-24) L [facility] CREATININE 0.45 mg/dL (0.60-1.00) L [facility] BUN/CREAT RATIO 4.4 RATIO (10.0-20.0) L [facility] GLUCOSE 98 mg/dL (70-99) [facility] CALCIUM 8.4 mg/dL (8.4-10.2) [facility] GFR >60 ml/min/1.73m2 (>59) [facility] GFR ( AMER) >60 ml/min/1.73m2 (>59) [facility] GFR INTERPRETATION [facility] --NORMAL KIDNEY FUNCTION OR MILD DISEASE - GFR >OR= 60CHRONIC KIDNEY DISEASE - GFR 15 - 59RENAL FAILURE - GFR <15 Est. GFR calculation based on the MDRDstudy equation, which assumes a steadystate for creatinine. Est. GFR should notbe used for medication dosing. ID Date Data Source [id number] 03/12/2020 08:30:06 AM EST [facility] Name Value Range Interpretation Code Description Data Nadira rce(s) Supporting Document(s) PHOSPHORUS 2.9 mg/dL (2.5-4.5) [facility] ID Date Data Source [id number] 03/12/2020 08:30:06 AM EST [facility] Name Value Range Interpretation Code Description Data Nadira rce(s) Supporting Document(s) SODIUM 143 mmol/L (136-145) [facility] POTASSIUM 3.4 mmol/L (3.6-5.2) L [facility] CHLORIDE 106 mmol/L (100-108) [facility] CO2 28 mmol/L (22-31) [facility] ANION GAP 9 mmol/L (7-16) [facility] UREA NITROGEN 2 mg/dL (7-24) L [facility] CREATININE 0.48 mg/dL (0.60-1.00) L [facility] BUN/CREAT RATIO 4.2 RATIO (10.0-20.0) L [facility] GLUCOSE 111 mg/dL (70-99) H [facility] CALCIUM 8.6 mg/dL (8.4-10.2) [facility] GFR >60 ml/min/1.73m2 (>59) [facility] GFR ( AMER) >60 ml/min/1.73m2 (>59) [facility] GFR INTERPRETATION [facility] --NORMAL KIDNEY FUNCTION OR MILD DISEASE - GFR >OR= 60CHRONIC KIDNEY DISEASE - GFR 15 - 59RENAL FAILURE - GFR <15 Est. GFR calculation based on the MDRDstudy equation, which assumes a steadystate for creatinine. Est. GFR should notbe used for medication dosing. ID Date Data Source [id number] 03/11/2020 08:58:31 AM EST [facility] Name Value Range Interpretation Code Description Data Nadira rce(s) Supporting Document(s) SODIUM 145 mmol/L (136-145) [facility] POTASSIUM 3.3 mmol/L (3.6-5.2) L [facility] CHLORIDE 109 mmol/L (100-108) H [facility] CO2 30 mmol/L (22-31) [facility] ANION GAP 6 mmol/L (7-16) L [facility] UREA NITROGEN 2 mg/dL (7-24) L [facility] CREATININE 0.48 mg/dL (0.60-1.00) L [facility] BUN/CREAT RATIO 4.2 RATIO (10.0-20.0) L [facility] GLUCOSE 96 mg/dL (70-99) [facility] CALCIUM 8.4 mg/dL (8.4-10.2) [facility] GFR >60 ml/min/1.73m2 (>59) [facility] GFR ( AMER) >60 ml/min/1.73m2 (>59) [facility] GFR INTERPRETATION [facility] --NORMAL KIDNEY FUNCTION OR MILD DISEASE - GFR >OR= 60CHRONIC KIDNEY DISEASE - GFR 15 - 59RENAL FAILURE - GFR <15 Est. GFR calculation based on the MDRDstudy equation, which assumes a steadystate for creatinine. Est. GFR should notbe used for medication dosing. ID Date Data Source [id number] 03/11/2020 08:58:31 AM EST [facility] Name Value Range Interpretation Code Description Data Nadira rce(s) Supporting Document(s) PHOSPHORUS 2.4 mg/dL (2.5-4.5) L [facility] ID Date Data Source [id number] 03/10/2020 11:32:41 AM EST [facility] Name Value Range Interpretation Code Description Data Nadira rce(s) Supporting Document(s) TSH,ULTRASENSITIVE @ 0.403 mIU/L (0.360-4.170) [facility] PERFORMED AT [address] [address] ID Date Data Source [id number] 03/10/2020 11:32:41 AM EST [facility] Name Value Range Interpretation Code Description Data Nadira rce(s) Supporting Document(s) PHOSPHORUS 2.1 mg/dL (2.5-4.5) L [facility] ID Date Data Source [id number] 03/10/2020 11:32:41 AM EST [facility] Name Value Range Interpretation Code Description Data Nadira rce(s) Supporting Document(s) MAGNESIUM 2.0 mg/dL (1.7-2.4) [facility] ID Date Data Source [id number] 03/10/2020 11:32:41 AM EST [facility] Name Value Range Interpretation Code Description Data Nadira rce(s) Supporting Document(s) SODIUM 145 mmol/L (136-145) [facility] POTASSIUM 3.8 mmol/L (3.6-5.2) [facility] CHLORIDE 111 mmol/L (100-108) H [facility] CO2 29 mmol/L (22-31) [facility] ANION GAP 5 mmol/L (7-16) L [facility] UREA NITROGEN 3 mg/dL (7-24) L [facility] CREATININE 0.45 mg/dL (0.60-1.00) L [facility] BUN/CREAT RATIO 6.7 RATIO (10.0-20.0) L [facility] GLUCOSE 96 mg/dL (70-99) [facility] CALCIUM 8.8 mg/dL (8.4-10.2) [facility] GFR >60 ml/min/1.73m2 (>59) [facility] GFR ( AMER) >60 ml/min/1.73m2 (>59) [facility] GFR INTERPRETATION [facility] [place] --NORMAL KIDNEY FUNCTION OR MILD DISEASE - GFR >OR= 60CHRONIC KIDNEY DISEASE - GFR 15 - 59RENAL FAILURE - GFR <15 Est. GFR calculation based on the MDRDstudy equation, which assumes a steadystate for creatinine. Est. GFR should notbe used for medication dosing. ID Date Data Source [id number] 03/09/2020 01:14:51 PM EST [facility] Name Value Range Interpretation Code Description Data Nadira rce(s) Supporting Document(s) MAGNESIUM 2.0 mg/dL (1.7-2.4) [facility] ID Date Data Source [id number] 03/09/2020 01:14:51 PM EST [facility] Name Value Range Interpretation Code Description Data Nadira rce(s) Supporting Document(s) SODIUM 144 mmol/L (136-145) [facility] POTASSIUM 3.5 mmol/L (3.6-5.2) L [facility] CHLORIDE 110 mmol/L (100-108) H [facility] CO2 29 mmol/L (22-31) [facility] ANION GAP 5 mmol/L (7-16) L [facility] UREA NITROGEN 4 mg/dL (7-24) L [facility] CREATININE 0.40 mg/dL (0.60-1.00) L [facility] BUN/CREAT RATIO 10.0 RATIO (10.0-20.0) [facility] GLUCOSE 114 mg/dL (70-99) H [facility] CALCIUM 8.6 mg/dL (8.4-10.2) [facility] GFR >60 ml/min/1.73m2 (>59) [facility] GFR ( AMER) >60 ml/min/1.73m2 (>59) [facility] GFR INTERPRETATION [facility] --NORMAL KIDNEY FUNCTION OR MILD DISEASE - GFR >OR= 60CHRONIC KIDNEY DISEASE - GFR 15 - 59RENAL FAILURE - GFR <15 Est. GFR calculation based on the MDRDstudy equation, which assumes a steadystate for creatinine. Est. GFR should notbe used for medication dosing. ID Date Data Source [id number] 03/09/2020 01:08:02 PM EST [facility] Name Value Range Interpretation Code Description Data Nadira rce(s) Supporting Document(s) WBC 4.5 10*3/uL (4.1-11.0) [facility] [place] RBC 3.60 10*6/uL (4.00-5.40) L [facility] HGB 11.4 g/dL (12.0-16.0) L [facility] HCT 34.4 % (36.0-47.0) L [facility] MCV 95.6 fL (80.0-95.0) H [facility] MCH 31.8 pg (27.0-32.0) [facility] MCHC 33.2 g/dL (32.0-36.0) [facility] RDW 12.7 % (10.5-14.5) [facility] PLT 294 10*3/uL (150-450) [facility] MPV 8.4 fL (7.1-10.7) [facility] NEUT % 66.9 % (35.0-75.0) [facility] LYMPH % 14.8 % (16.0-52.0) L [facility] MONO % 14.4 % (0.0-8.0) H [facility] EOS % 3.5 % (0.0-5.0) [facility] BASO % 0.4 % (0.0-4.0) [facility] NEUT # 3.0 10*3/uL (1.8-7.7) [facility] LYMPH # 0.7 10*3/uL (1.2-4.8) L [facility] MONO # 0.6 10*3/uL (0.0-0.8) [facility] Eosinophils [#/volume] in Blood by Automated count 0.2 10*3/uL (0.0-0 .5) [facility] BASO # 0.0 10*3/uL (0.0-0.2) [facility] ID Date Data Source [id number] 03/09/2020 01:14:51 PM EST [facility] Name Value Range Interpretation Code Description Data Nadira rce(s) Supporting Document(s) PHOSPHORUS 1.9 mg/dL (2.5-4.5) L [facility] ID Date Data Source [id number] 03/10/2020 03:54:23 PM EST [facility] SPECIMEN [...] rce(s) Supporting Document(s) ID Date Data Source [id number] 03/19/2020 07:38:09 AM EST [facility] Name Value Range Interpretation Code Description Data Nadira rce(s) Supporting Document(s) CULTURE RESULTS [facility] SEE NOTE Specimen received and in progre ss. Performed by [employer], [address] [facility] [place] [address] [email or web address] Pisano MD, Lab. material controller STATUS [facility] SEE NOTE Culture negative for Legionella species Performed by [employer], [address] [facility] [place] [address] [email or web address], [email or web address] Pisano MD, Lab. Director ID Date Data Source [id number] 03/08/2020 04:56:00 PM EST [facility] DATE OF EXAM: 03/08/2020CT CHEST [...] sided pleural effusion. Professional interpretation performed at [facility] .End of diagnostic report for accession: [id number] Interpreted: Hazel Garciascribed: 03/08/2020 04:45 PMSigned: 03/08/2020 04:56 PM Hazel Garcia DO [facility] # [id number] [facility] # [id number] Name Value Range Interpretation Code Description Data Nadira rce(s) Supporting Document(s) ID Date Data Source [id number] 03/08/2020 08:03:17 AM EST [facility] Name Value Range Interpretation Code Description Data Nadira rce(s) Supporting Document(s) MAGNESIUM 2.0 mg/dL (1.7-2.4) [facility] ID Date Data Source [id number] 03/08/2020 08:03:17 AM EST [facility] Name Value Range Interpretation Code Description Data Nadira rce(s) Supporting Document(s) PHOSPHORUS 2.3 mg/dL (2.5-4.5) L [facility] ID Date Data Source [id number] 03/08/2020 08:03:17 AM EST [facility] Name Value Range Interpretation Code Description Data Nadira rce(s) Supporting Document(s) SODIUM 144 mmol/L (136-145) [facility] POTASSIUM 3.6 mmol/L (3.6-5.2) [facility] CHLORIDE 107 mmol/L (100-108) [facility] CO2 31 mmol/L (22-31) [facility] ANION GAP 6 mmol/L (7-16) [facility] UREA NITROGEN 5 mg/dL (7-24) [facility] CREATININE 0.50 mg/dL (0.60-1.00) [facility] BUN/CREAT RATIO 10.0 RATIO (10.0-20.0) [facility] GLUCOSE 115 mg/dL (70-99) [facility] CALCIUM 8.5 mg/dL (8.4-10.2) [facility] GFR >60 ml/min/1.73m2 (>59) [facility] GFR ( AMER) >60 ml/min/1.73m2 (>59) [facility] GFR INTERPRETATION [facility] --NORMAL KIDNEY FUNCTION OR MILD DISEASE - GFR >OR= 60CHRONIC KIDNEY DISEASE - GFR 15 - 59RENAL FAILURE - GFR <15 Est. GFR calculation based on the MDRDstudy equation, which assumes a steadystate for creatinine. Est. GFR should notbe used for medication dosing. ID Date Data Source [id number] 03/08/2020 07:42:13 AM EST [facility] Name Value Range Interpretation Code Description Data Nadira rce(s) Supporting Document(s) WBC 10.0 10*3/uL (4.1-11.0) [facility] RBC 3.58 10*6/uL (4.00-5.40) [facility] HGB 11.4 g/dL (12.0-16.0) [facility] HCT 34.0 % (36.0-47.0) [facility] MCV 95.0 fL (80.0-95.0) [facility] MCH 31.7 pg (27.0-32.0) [facility] MCHC 33.4 g/dL (32.0-36.0) [facility] RDW 13.0 % (10.5-14.5) [facility] PLT 259 10*3/uL (150-450) [facility] MPV 8.3 fL (7.1-10.7) [facility] NEUT % 84.0 % (35.0-75.0) [facility] LYMPH % 7.0 % (16.0-52.0) [facility] MONO % 8.7 % (0.0-8.0) [facility] EOS % 0.1 % (0.0-5.0) [facility] BASO % 0.2 % (0.0-4.0) [facility] NEUT # 8.4 10*3/uL (1.8-7.7) [facility] LYMPH # 0.7 10*3/uL (1.2-4.8) [facility] MONO # 0.9 10*3/uL (0.0-0.8) [facility] Eosinophils [#/volume] in Blood by Automated count 0.0 10*3/uL (0.0-0 .5) [facility] BASO # 0.0 10*3/uL (0.0-0.2) [facility] ID Date Data Source [id number] 03/08/2020 06:38:00 AM [facility] OF [facility]AM: 03/08/2020EXAM:Abdomen 1V CLINICAL [...] recommended. A contemporaneous report was provided by [facility] at the time of this examination, reporting similar findings. L2End of diagnostic report for accession: [id number] Interpreted: Hazel Garciaribed: 03/08/2020 06:32 AMSigned: 03/08/2020 06:38 AM Hazel Garcia DO [facility] # [id number] BILL # [id number] Name Value Range Interpretation Code Description Data Nadira rce(s) Supporting Document(s) ID Date Data Source [id number] 03/07/2020 10:08:00 AM EST [facility] Name Value Range Interpretation Code Description Data Nadira rce(s) Supporting Document(s) NT PRO BNP 603 pg/mL (0-125) H [facility] ID Date Data Source [id number] 03/07/2020 10:08:00 AM EST [facility] Name Value Range Interpretation Code Description Data Nadira rce(s) Supporting Document(s) SODIUM 140 mmol/L (136-145) [facility] POTASSIUM 4.6 mmol/L (3.6-5.2) [facility] CHLORIDE 108 mmol/L (100-108) [facility] CO2 28 mmol/L (22-31) [facility] ANION GAP 4 mmol/L (7-16) [facility] UREA NITROGEN 4 mg/dL (7-24) [facility] CREATININE 0.52 mg/dL (0.60-1.00) [facility] BUN/CREAT RATIO 7.7 RATIO (10.0-20.0) [facility] GLUCOSE 91 mg/dL (70-99) [facility] CALCIUM 8.3 mg/dL (8.4-10.2) [facility] GFR >60 ml/min/1.73m2 (>59) [facility] GFR ( AMER) >60 ml/min/1.73m2 (>59) [facility] GFR INTERPRETATION [facility] --NORMAL KIDNEY FUNCTION OR MILD DISEASE - GFR >OR= 60CHRONIC KIDNEY DISEASE - GFR 15 - 59RENAL FAILURE - GFR <15 Est. GFR calculation based on the MDRDstudy equation, which assumes a steadystate for creatinine. Est. GFR should notbe used for medication dosing. ID Date Data Source [id number] 03/07/2020 10:08:00 AM EST [facility] Name Value Range Interpretation Code Description Data Nadira rce(s) Supporting Document(s) MAGNESIUM 1.7 mg/dL (1.7-2.4) [facility] ID Date Data Source [id number] 03/07/2020 09:26:00 AM EST [facility] DATE OF EXAM: 03/07/2020EXAM:Chest 1V Po rtable CLINICAL INDICATION: DYSPNEA TECHNIQUE: Single chest x-ray. COMPARISON: None. FINDINGS: Bibasilar airspace disease concerning for pneumonia.Diffuse emphysematous disease.Normal cardiovascular silhouette.Unremarkable osseous structures. IMPRESSION: 1. Bibasilar pneumonia. Professional interpretation performed at [facility] .End of diagnostic report for accession: [id number] Interpreted: Mendoza Sheridan MDTranscribed: 03/07/2020 09:25 AMSigned: 03/07/2020 09:26 AM Mendoza Sheridan MD [facility] # [id number] BILL # [id number] Name Value Range Interpretation Code Description Data Nadira rce(s) Supporting Document(s) ID Date Data Source [id number] 03/07/2020 08:08:23 AM EST [facility] Name Value Range Interpretation Code Description Data Nadira rce(s) Supporting Document(s) WBC 10.9 10*3/uL (4.1-11.0) [facility] [place] [facility] ISELA RBC 3.51 10*6/uL (4.00-5.40) L [facility] [place] [facility] HGB 11.2 g/dL (12.0-16.0) L [facility] [place] [facility] [place] Y HCT 33.6 % (36.0-47.0) L [facility] [place] [facility] MCV 95.6 fL (80.0-95.0) H [facility] [place] [facility] MCH 32.0 pg (27.0-32.0) [facility] MCHC 33.4 g/dL (32.0-36.0) [facility] RDW 12.9 % (10.5-14.5) [facility] [place] [facility] PLT 229 10*3/uL (150-450) [facility] [place] [facility] MPV 8.6 fL (7.1-10.7) [facility] [place] [facility] ID Date Data Source [id number] 03/06/2020 09:08:27 AM EST [facility] Name Value Range Interpretation Code Description Data Nadira rce(s) Supporting Document(s) MAGNESIUM 1.9 mg/dL (1.7-2.4) [facility] ID Date Data Source [id number] 03/06/2020 09:08:27 AM EST [facility] Name Value Range Interpretation Code Description Data Nadira rce(s) Supporting Document(s) PHOSPHORUS 3.4 mg/dL (2.5-4.5) [facility] ID Date Data Source [id number] 03/06/2020 09:08:27 AM EST [facility] Name Value Range Interpretation Code Description Data Nadira rce(s) Supporting Document(s) SODIUM 144 mmol/L (136-145) [facility] POTASSIUM 4.0 mmol/L (3.6-5.2) [facility] CHLORIDE 112 mmol/L (100-108) H [facility] CO2 25 mmol/L (22-31) [facility] ANION GAP 7 mmol/L (7-16) [facility] UREA NITROGEN 7 mg/dL (7-24) [facility] CREATININE 0.66 mg/dL (0.60-1.00) [facility] BUN/CREAT RATIO 10.6 RATIO (10.0-20.0) [facility] GLUCOSE 98 mg/dL (70-99) [facility] [facility] CALCIUM 7.7 mg/dL (8.4-10.2) L [facility] [facility] GFR >60 ml/min/1.73m2 (>59) [facility] GFR ( AMER) >60 ml/min/1.73m2 (>59) [facility] GFR INTERPRETATION [facility] --NORMAL KIDNEY FUNCTION OR MILD DISEASE - GFR >OR= 60CHRONIC KIDNEY DISEASE - GFR 15 - 59RENAL FAILURE - GFR <15 Est. GFR calculation based on the MDRDstudy equation, which assumes a steadystate for creatinine. Est. GFR should notbe used for medication dosing. ID Date Data Source [id number] 03/06/2020 08:35:19 AM EST [facility] Name Value Range Interpretation Code Description Data Nadira rce(s) Supporting Document(s) WBC 11.3 10*3/uL (4.1-11.0) H [facility] [place] [facility] RBC 3.69 10*6/uL (4.00-5.40) L [facility] [place] [facility] HGB 11.7 g/dL (12.0-16.0) L [facility] [place] [facility] HCT 34.9 % (36.0-47.0) L [facility] [place] [facility] MCV 94.7 fL (80.0-95.0) [facility] [place] [facility] MCH 31.7 pg (27.0-32.0) [facility] [place] [facility] MCHC 33.4 g/dL (32.0-36.0) [facility] [place] [facility] RDW 12.6 % (10.5-14.5) [facility] PLT 256 10*3/uL (150-450) [facility] [place] [facility] MPV 8.4 fL (7.1-10.7) [facility] [facility] ID Date Data Source [id number] 03/06/2020 11:44:00 AM EST [facility] [address] [place], [place] [address]IYIRUBQ NAME: JOSE PUENTESDATE OF : 1960REPORT: OPERATIONPATIENT NUMBER: [id number] STATUS: [facility] RECORD NUMBER: [id number] [id number] ADMISSION: 03/05/2020DATE OF DISCHARGE:ROOM: 01DATE OF [...] proximal sigmoid area. We then did a iqdk-td-jycj vjxladbnswngt-ks-iyn anastomosis with the WOOD stapler blue cartridge [...] Silver, MDDictated: 03/05/2020 16:42DT: 03/05/2020 16:52Job #: [id number]: [facility] computer generated reports are not confirmed orauthenticated unless they are signed by the providerElectronically Authenticated by:RANDALL SILVER MD On 03/06/2020 11:44 AM EST Name Value Range Interpretation Code Description Data Nadira rce(s) Supporting Document(s) ID Date Data Source [id number] 03/06/2020 10:48:19 AM EST [facility] [place] [facility] SPECIMEN DESCRIPTION CATHETERIZED URINECULTURE RESULTS NO GROWTHREPORT STATUS FINAL 03/06/2020 Name Value Range Interpretation Code Description Data Nadira rce(s) Supporting Document(s) ID Date Data Source [id number] 03/05/2020 02:29:28 PM EST [facility] Name Value Range Interpretation Code Description Data Nadira rce(s) Supporting Document(s) URINE WBC (0-5) [facility] [place] [facility] URINE RBC (0-2) [facility] [place] [facility] MUCUS 1+ [HPF] [facility] [facility] AMORPHOUS 4+ [HPF] [facility] [facility] ID Date Data Source [id number] 03/05/2020 01:53:36 PM EST [facility] [facility] Name Value Range Interpretation Code Description Data Nadira rce(s) Supporting Document(s) COLOR [facility] [facility] APPEARANCE [facility] [place] [facility] SPEC GRAV URINE 1.027 (1.003-1.030) [facility] PH URINE 5.0 (5.0-7.5) [facility] [place] [facility] LEUK ESTERASE 1+ (NEG) A [facility] [facility] NITRITE URINE (NEG) A [facility] [facility] PROTEIN URINE (NEG) A [facility] [facility] GLUCOSE URINE (NEG) [facility] [facility] KETONE URINE 1+ (NEG) A [facility] [place] [facility] UROBILINOGEN 0.2 mg/dL (0-1.0) [facility] [place] [facility] BILIRUBIN URINE 1+ (NEG) A [facility] [place] [facility] INTERFERING SUBSTANCES MAY CAUSE FALSEPO SITIVE BILIRUBIN, WHICH HAS BEENSHOWN TO BE CLINICALLY INSIGNIFICANT.CORRELATE WITH OTHER TESTING. BLOOD/HGB URINE (NEG) [facility] [place] [facility] ID Date Data Source [id number] 03/12/2020 10:11:03 PM EST [facility] [place] [facility] [place], [place] [address]Xot# SURGICAL PATHOLOGY REPORTPatient Name:JOSE PUENTES:1960Received:03/08/2020Accession #:[id number](s) [...] 03/12/2020Electronically Signed Out By Altagracia Cadena [facility] [place] [address]Technical component performed at [facility], Histopathology, [address] [place] [address], [phone].Reported at [facility], [address] [place] [address], [address].This report may include immunohistochemical or in-situ hybridizationresults. Testing was developed and the performance characteristicsdetermined by [employer] [facility], as required byCLIA '88. The FDA has determined that approval for specific use is notnecessary for clinical use. The quality of Hakeem toxylin and Eosin stainsand as applicable, for all immunohistochemical and/or special stains,including positive and negative controls, were reviewed and consideredappropriate.ICD codes:CPT4 codes: A: 35359V, 18781u, 25406(4), 67430u, 06528(3) Name Value Range Interpretation Code Description Data Nadira rce(s) Supporting Document(s) ID Date Data Source [id number] 03/04/2020 09:52:00 AM EST [facility] [...] rce(s) Supporting Document(s) ID Date Data Source [id number] 03/04/2020 09:50:00 AM EST [facility] [...] rce(s) Supporting Document(s) ID Date Data Source [id number] 03/02/2020 03:28:00 PM EST [facility] Name Value Range Interpretation Code Description Data Nadira rce(s) Supporting Document(s) SARS coronavirus 2 RNA [Presence] in Res piratory specimen by KARLA with probe detection [facility] This lab was ordered by [facility] - Surgical and reported by [employer]. ID Date Data Source [id number] 02/27/2020 02:26:24 PM EST [facility] Name Value Range Interpretation Code Description Data Nadira rce(s) Supporting Document(s) MUSE EKG PDF encoded [facility] WZOHJc3uFsUOGrOvy1BqXuFsKBJvVV2wudj3J4I9xKZkG2ZcvTBgt6elV9OfO6MtDPSrOTBRJN3WdGJa jb2 [file] bT78zUwRvtIqPK1Ya8XQ4XeQFQBJf+XIxHgryxFFleh6O7FLRuNjddGJYltc8b6nXMBbOjyR/paralegal supervisor+sv0 [file] BSCgo+CzrakQWeoPzlXRGEOGPfBUepArTxEO1K ID Date Data Source [id number] 02/27/2020 02:26:24 PM EST [facility] Name Value Range Interpretation Code Description Data Nadira rce(s) Supporting Document(s) MUSE EKG PDF encoded [facility] ONUUUj9iDnNSYrWmq9DyTxGfZBYdLU0yryp7K5N8wPFyO7QqhVIws7uwP2YnR1FpYFMxWQHUPN1FfSOd jb2 [file] 9OQObmqLXlfyfdRExL78oZd3EVfOlj+VjyQQ/UyZRhvtP9VyspffnpxZ5AYX7T9BFRYevYo1Zg6Sq+yuan RJVIxwr8wgdFmhV6bQgl3fhTQai3aO+ZGhR9yD3aimP6D4VTiLofHQ5AsQ4tCh4HJJGJsVKH3X/t7Fx5 SxPJyfK7aJpR1xHgGHPjYiLzM0l//1f/71v2JEQc6/ XfO//5///B//d/offline editor//mf//5///M//vu/CpOep7P+87//Y9kzGv8//itcXCpd+F2FOfxAxgAVJ/j4D/Ar v/3yh/AmN1eles2fC/DL8zooFepO/Innmb/9ueW71E/Xg023np3t8l756QUVeD/eG+87I9/ifW+6rrd4 XwUGsHjfo/S/9/67B205/3o7dxebg42oa/mKTfQDiZ X2usa/utd/+Z/i74a87xweL/M5mpiw6oh/3vemK/8HDO/1P1x4n+EHC++z/RRkteXt19hM0I7+W63559 0jfyB/IN+O32iuQY5O+/ES3gSrxg5/SCP/IP9U/sD7jq/aAfMI2vr+I/lzAx5Ssrp1+s/oNV7G+JBGvi PfkY/+GBpIn2Ia/50E01af6PH8qqL2qfjoX/59SCO/ Ib8h3+n97Sz4EM00soC/kI/3da/x6PG+riYoY2C+xpRj/Mmc1bzt7g6nI2/3vcxdv/vtEaX894p8r56o Vc7E+71doF4x+oLl4V6rc987RX6mbPQucshbwX0ewwQbZuzhr/Mrstgww23DF71eVhw/vunKX1+Vs756 ztVqvKxW/X/Kb8WO11RfyPr+iPTkDt5F8IDnFm/+sG C5geIvo3x8soikF96AvWZi1q4GGLb/6zzp2xsjA8r0bWOLpfZ+7/yeeyK8c++5Ubr9X1s+jR/l//rz9m zYL6xduRy5p/a344mNo/zf++6l/N/77pVBID+kkb+R/3vf+2y/747hyzs31V1Cr5ViG+Re+0EJQw19WI V/ymL1jv8TlsxWIrxttkfmP86I1+WS6554uU+GjYn3 yObonsftZwD95hsejRUi9/Gc+r+c6M/6Rxm5EohgPt0df1Q4Ym9o/+amrfS/fFsZV+Rf/u8HFel/+b3L VfnXn38/n0h7pX/jt2f5A+X8xm/xKk49lyrOJOtv6ZR/NR0ybMjxGDxzeKq5RUkmr6/iK4CwNXD/eIZk /mwSyLld0JvjB8djk+Jf2yq/fT2e18tUX9z/76X8+L 437XVvfN+sa7z+H+0pbbiDmoK5a+6N75vp+D49oxF3d+P5N8o/rz+JH8r7n8VHpJHeG37u+BgiJnwM8h XwmJ2k9n+0HoigS14xttz2etO0ekoo/QzBESw52Lw7Ldi+XnojfyO/kz33oRqi+1ffvX/0Tp95JCU3k/ O5fPllFC8FBK0hf/RA/sD1/hmX2OG1AW7TD80yigt5 RMyv2h2TirJ7Z/cF93ZrvE4joOapIxodtkqFsGOUkpKw3YR+/X9N+Oqmkd+R35E/kD+X62n1d0qX+Co3 L2XOucS/XQ0ihkJ/zXHl0VirPh+T746Ar50w+Hen1h9CA1eF+tVSGP9uKvV8/2plXyL5VukoHPG1Rm+q 0nY8WtHlPZ9R+DjJtnoyYzTJ5ZrO2Txcp/DVTXtdY7 vwwU7zPbbkdVaudV+o1z+yJn7KtGJVu3e/z1Xja+6aZ+ZG/qlxMU+Ni/U9fBL+GS/dkN+Qb8jH+F0d+R 35o+uRbrv0T26o/zkjFopL7XC7Da3kzQCmClSZ+UwhrwqO1CO7oGJCypq4d8XS8wtdbL+4vlf/2b3q3Q LcE1Mr3G2JA+PS0oES9ra1PRbQ/T/l1F2v3R/kH+Sf vm284zEEt/V/O8GaQKvOYuU/v6bof7aFikafwn5Y+vPB9xW+0n9E+Fm12sIqZXCm/QcQFp692rad0i2/ F04W+A7ER8o2U4lMEp99f6Xqsi5aeOApYVrV0pKL2umm5CcHmXv+I38+HBJ+Fa/d8xPvAFepftVmT81X f+s5zq1p1g7xrbQhtow682qsiZFmfGyrS/iqC19l+e SZYlK89eyYrew6ZP92Wa5Dwf4aD1092hd4Bycu8WQ+o+wWLm396Wktd6A5lUe9uC0lD8NyGKHa1UuxSn 8I+3RqWB08XV7EaBp+Dz+ppfEPh3uHWgBt0/OH/Uq4vct+dVR+rX+19SWZ4PIy4TzxeuLQiG6Z+ErtbP i+pob8FhMyDwaXyMKVw8XaY31Hf6b/rQi53De/uDcc VY1493R4raiaxxipk1IS+6x+HvjqpfH8+1r5Ovi6zN6P+BSoTbo9Savw9a82nNOTa/JH/0Oo6uiEjcOy P1j1M70QHi0TY2X/kL+Qv5G/xV9wSm8NcQnVqgZHrkD48CT3P7L90gI8MehkUn9zSZ/gq2wfr/VvOD7c Rix77dnaLx9Dm2t1tM2papWf2RFM7col/9/ghT5meb xfk2yvbB+q/8/Bv187adxt+LnP+v/6Lhw4EnpmRlQtybQr1U/3X+4WI1zxzrf0lhdn+xv6kuqlM4tQg9 FuQx6juhsn93Ice06NAvyhrn273Q360x+D9n3R7nvXgb5eR/X/8xIJpyYS44J+WXcV90o05FxZH/taKH /MrMm8haMEK1c+GPa92who+JdJW2dkr1A+4au+yx7b d0d+4au+Os032miFX/Id+RP5s/rX0QVGdij038xo8132l8k395J7H/2U/sbZC0p5uo/AXsHAzG1i2+J9 Z2920E0FbbEQcT7qog8St4votmpluQ/B+56Nejeep/aPwjshnz+cEyr9+n+6VsFt09t+QvglvHR//Sq8 CqBgf8TDcJVecKxfR+TX/lG4I+T4Cm+ZfRJVP0Rdp7 PGMM3A4BtXzoAzOGueNjrf/BDy/f0pHFEVfq6mdJ7V3wVAVrHQnr9PU5E5gW96nXZpSmf9rt4jhb9vqw NGhxLOS4ptmq+u0qov2gh8vO6Vv/4Qrt7Ee0VIwfB18y+ZuiQHD2fje4mNf75m53yqlCL/mNP2ErkVzu xXW2l/OH+k/apFeiJ/4vr1/dDwQlMNGDnCuX0plP8f p9dp7rUzYHc5/l7r/fAuuO/ea70/RF9Qci8fr4K6Go8XU/jqpt9/eQhfqe/3oq8Q8dl5v54p03WED42b D/1X9Xy2bozF+Fqo9kt18sSzlP+Y30zLv2SVK/ySnxTkA36KYZA/zmvC/qy2GmF/tkw/+8J7PmB6ULbO 0BCNGmMdkSWpXcCa7hRXX43HYsv1HYpQG2s6ux2My2 5b+78D+5Hd0Qf4Lnwb5PI3Qvw9E93TIdBYQwGp1isnoAI2ew+YA40aIgrRUNv3rL+y3vi+ma717/CyTw 4v+4BEnbb4gWiSK+DdW+be9WC37Shovn/K4n1auX+OsX9utymQ+N4trenq0Fysqr84GW/rnF6iYjzyIA fyJ/PT0ikM8Ze/j47MF5fpQqmFW2Q+WpivFsbvwvhd Io3gjjz0g1f2U/l4X+Grm0b+/P+fAbEcPSoFDwm8NQ9m4YLXjZCzczyn0GAEuUFzm5x2CPSaseMzurEh ffonzZ69/9mZ+bTV5wDu6b+24m72M1/RDYd4de3N58Ql5stAa9fj5Lx23qD0f+9PH+CPbo+3/Nn140HU DXwDv+1XE/foSozDhL3nvt87Ob+nvY4M4D1i7kz473 z2owuHbvR+NR3fhn7r/bdGn/+p05K8I1ySe+J6/H/D+r8cC/wF/gZ/g4/1KhztbH+MPd2eCV29zk2r7C /l9t+qC1G9vz/0Czy7i6Bu94as1qsvCs/AN/D7+x4//vrulueDt/dGSugnx1Kd2Ft4so8l4C45+NL2SZ P+lul5mQ5GwRQm2kcU/AH+BL/7YHPNR1/X/o1uVI72 HJ/9GifHZf/x2z/nOOy/ex31tH/O8da/67o47szPj5+k46n/pyu9UXsmX6hF/2pW+nvyym2OFcPtgtJ/ 1kwiNOr1y/IXb5FjYit4w75sxh7O4+MK5xoqn/1Mhf8Uv4uDbn/16X/lyT/rG8pO76//smxdHs/OZul/ BjRlmvSbRE8ggYuG+73S/+q0m925yj8O/+ro7Zb+V9 n/8L+g9eABGs4IYz7WEq+PbPZ+6Ln2NevEGg4li9klXxZ3hLJ11Budp/s7fnxU9RcE15Q2+18Z/K9s9n 3QFf2SgWS6l3t7q5eoJ1ZIo/+dwW3MfL5iugs0wkY2iZvWgeQl9toVol9byD7T/Cn5P7Bd/5r1/9dsgd /2K7M+7zbr81/D+qXB15JE3duaAse4s6dieCJ/kfX/ 9KuyCR/X+p4HpdK17UTtIA380WSQT97Zu+N/NaLKf/pD42Rea/rbMWUZ/J50WeammanNgjou//pxZ/k3 X/K7p/9VtWc/fy1bbc+x1ee/tnq/b9n6K62j+6Z+leNktz+U0wRSxuZibkazmdeCdqGN43G/v0udD+b1 E/QBm7btL0k0QTHna8HgW97a3lvc+1b+F0xHYomyij Lv81/x0i6lvK7m7aiJh49188h/qV/VNe0/fW9Gw1V52hUN/pij7Ik6wEP/7XeTdiitkE4no/x/A983MH +jz/ct+nvqJiIPKB8SiuX/zwctWp+1eU1VouPm1N+lk4j1T8Im/Fl4w7q41rP1WEjJH+hXK+1Xt/z0hP W1vrE+QR8cxwdFwf7+/uXTH22k31DL2qT0Sg9Jn4Gf d0512q22u+N7dfhziM/YVHcMqmQMalJ3biciQ5jU5UP4aAuneeIwo0eH5d3C7p/Of3+l/flQtt9w3GNe f+G5C/z2F13S/wPI0U7eV8V2ua5Tr8si4nh5LF8oX9x6c/N9U7+6ZfAH+OQ0ewufjG8fctoDCa77Cu4V f4O/we/1ecG/fWmg/dH9NvC+8G9fo/cLa/R+YY3Wn9 mcdonough+fjtO9Ua/XnNSbqwfum/1Vd0/xYyo7Exnj+z981ev+6Fr8Keid7waLp/pZ/y0WgefyY/ar6YUp/92 O/vtMvZ64ed466a0O0iGs/E/N3Ws/HaT0f5+rvMhfag/Je7btdy8n/yjky/ckab0f0V4+wniG9ZP3lz9 /YKBbpcQI85cEl0gMrKrx89FV1/Y1KycyJX7C7cvqd 1Dp+TLt2e6lWl7cAd/K7W+8Hl/V+qMuXF6042pzhC/jtb7ZW+/Nt0p7fn/X/vW5JA7SfsUlI57AC5cxs C9axWDjL9F9T2/58xi5z1axog90Y1jo0I962n3/V+vNarW+s1K+yvNvevvYHfvtfLfhfLfhfrbJfZbnP C6ddf2BO5yjlj/MuedBmAqi3n4FkY9+7V5af/rZ2+5 st+Lcv+F+m8tvZ6jA9lClOk3G/4/lkhisPeV252Tk/znHox/8j60b98PMDB/05v7W3/im88aqlL/tzjs +ffvV3/WmPH/052+h72PfFe/6ca6Yf/TnXHz/25/ymvt/+iUdARkujg99t9pgl5u2CV3fhd9I6u0c7e+ dzo/0ZVrQ/8Iq2P6/0w55cf9upzi5n1rvP557+D13R 0MVtWM2h5ILH93Sm9zhfX/iO9+w00Ki01qfV/BK9lu63b2ZIw4ud3MIRl6/0d4yhz8ui60th4kys9/0Z nmuof+A2Aj9S9yphHeq+7ftz1B+op/e/F8ffdMB+vShcG0r0syjjp2ex1Z4V9bS3n8ae035lR77jB36g y8L1C/O2256b6BgXL6c88uV+wFv6/Hdr25+3tj/hrv jBKoPf+sbWttftPB+EuUcXd7pM9Hz3Hr1Mu2Vx8C/wN/mmm9cej5Zbo2oj+54y1Ax0qR48O+qNbwr3Rg 4aDirhN1ov9/JE/JW96YHsu7prEsYW+Td19g05r2s/81H4nh45Q++PdtmvTnni+58wL53FA+7Z+uSeCr 6Cj+878X1n+9ar9Z17/Om24um19Vb5OwJ8+Xw7Tl8P 6sd1Xjz3y9h35mr8NRowu51hu191B/tvbMQPbsQPbsQPbpvgG/h4X/k9z7xl15X4PuvXhjQO+Mu985H0 XR/0rV96B12r8eJ+G3th/q62t+56lMs7Yv8ZrQC+8Eu+9fhcrT/h9glpXd4m0bnmfBwsmOzazim9znVv 3u/v/MLlBI6010v4xnqR+MGcdxk/zNUsptBCtte2k+ 89wTdcj/t642rA3M0aM7s5/mjvjg/du+2TG/arjfjBvfH/6eFwr9g//411aFononH2WJ+A3/v41C3d8b 0Lh6HltY44Wrb5/8ZG/ODO+COL5Fl3tzZ7So3+pv0nN/CeMOytqE48o3Bd9Qe48m+yA++b+aJhpx7tyA kebwdjK1HibE/xE91Bg4493Rf5dq1f977vv/q353tF 0zm29td6VxXCxbcYA36A4hirHU52Ku6qvyv0/KBn/KDmNUd/PnqCZ/rznsue4WGxvX4bvlcset+O7cd+ Nb6ss/03/Vol7mebs/3qtme/8yCH/scXt6u4Itxj/Eg8tp9ap4obhImRwx/z9G8/48JFof9gI/92Tb6C f/Ugm751+rdnf8K/9jB5cI0jU4le/YPmDu5FL8+q8g Z/W7e5/Rlc+cd84Jc50tuehR/l9dr+wI74Qc/4avqsaE93wy4m/2T8YF0/uv3a+wVP/2oOotnqkRuC8n 3Vx55W96/Us1F/rp8Q1xcqwKUon+Js2778kF+Kj56/Pnr+zqznuf1L35856Lgn/N7v+5jgT/Dbf8NH+0 /6wPsOfN+E7phqrpN+VfX0/nfO0fy13UqBJ25XJ/vH +mz/WJ+9P/LZ/s8+FfWM9x/12st8Sn8VS6nS+Py3bA1Rj7H/ff7YaGu02kxj4+fdPnu/93WiQym9ru4y /AsiJc34x9d6A+0J1LM4Lc2Ra7G/u/9PU5IvO5TuA1FzQ2Rr/55wz5m2OrpC09jaaBj22Gwl//wm214O fgZf+L6r/Cq15Dgyz/QY0hHyO364WQQQduIeL5/AX+ D3+a+vPv/9erLmWbiz2Z+8V+8Hfbf/s+8+L3P4X/lufzPfmL+IH3TED/ru+F+H/5Xv3u/3pnevw3Jw30 7hG++725/fU7+qIw074obuA/7l4ug07N/cFPdv8BqwrIrL8/k7q4i5IVN8oB/hf+Xe/jnuGM/e+1/3ts e6t/7s3vqz+wYf/9+2O09pzq6/EezvcErgTht4who+ Vw7/K4f/tCrpz5i1lPuV/8rhf+Ia3Gh9e1N4vz7c0QS1yo1Av+05Hu0/6dH+ac30C2V/j+Jrf9HI+MGj +7QYR19hG93yZr6k8TvgeWjEeQG9lI/cpzy/hli0vxb8RN++yU6br5LF/0J6Pmr57y5GC4zZM5g0uMqg hL7jBgxHUVIrqdI0W+z1PDD1hKiW/IHrh/G0N0r9zg kOoyeX5W37vd1/GBU/mWJ22WfR/GBk/DHapxHz0w83eTA/o/ahDMkXimlxgHPwmJTDU3Hr1Kr+sK7XZ5 cOug46crmDer32gkkg+orWxedsw5v+nPWn/nzafPyvpOo5+nNds9/+MyG2DSMYC95N956J8f3+xnlo59 +I1K+bfb3gAy3B5zhqT4n7P44tvkzu/g2i2PbO5e3q phr4Mr7eQrgsmq4sxVytsV452a+87sd3xAefZvEVdv55fDV6r1baY4cVT9wfX+N5Yjxn/OAtg6/gY/7O 6czD6aW/MXu/Magdalene/OJKf/luIrw7k7ghF/gZ/g4/gcBRG6FwY54r0Dqkm3O2Ndx5yRtw0L/r6107qg6Fg [file] Z0WED5nXAkGxhxDFZ5FFQEAXTTF1R= ID Date Data Source [id number] 02/27/2020 02:18:00 PM EST [facility] ([facility]) Name Value Range Interpretation Code Description Data Nadira rce(s) Supporting Document(s) Blood type and Indirect antibody screen panel - Blood Laboratory test result [facility] ([facility]) SPEC EXP DATE 03/08/2020 PATIENT ABO/Rh O POSITIVE ANTIBODY SCREEN NEGATIVE TESTING SITE PERFORMED AT [address] [place] [address] BLOOD BANK COMMENT BLOOD TYPE CONFIRMED. Carcinoembryonic Ag [Mass/volume] in Serum or Plasma 5.9 ng/mL 0.0-1 0.1 [facility] ([facility]) CEA REFERENCE RANGE: NON-SMOKERS 0.0 - 5.0 NG/ML SMOKERS 0.0 - 10.1 NG/ML SERUM CEA LEVEL SHOULD NOT BE INTERPRETED ABSOLUTE EVIDENCE FOR THE PRESENCE OR ABSENCE OF MALIGNANCY. METHOD IS ADVIA [employer] Energy[employer] XPT CHEMILUMINOMETRIC IMMUNOASSAY. VALUES OBTAINED WITH DIFFERENT ASSAY METHODS OR KITS CANNOT BE USED INTERCHANGEABLY. ID Date Data Source [id number] 02/27/2020 02:18:00 PM EST [facility] ([facility]) Name Value Range Interpretation Code Description Data Nadira rce(s) Supporting Document(s) aPTT in Platelet poor plasma by Coagulation assay 27.5 s 22.0-34. 3 [facility] ([facility]) PERFORMED AT [address] [place] [address] ID Date Data Source [id number] 02/27/2020 02:18:00 PM EST [facility] ID Date Data Source [id number] 02/27/2020 02:18:00 PM EST [facility] ([facility] ([facility]) PERFORMED AT [address] [place] [address] Erythrocyte mean corpuscular volume [Entitic volume] by [...] [facility]) ID Date Data Source [id number] 02/27/2020 06:34:29 PM EST [facility] Name Value Range Interpretation Code Description Data Nadira rce(s) Supporting Document(s) CEA @ 5.9 ng/mL (0.0-10.1) [facility] VICTORINO CEA REFERENCE RANGE: NON-SMOKERS 0.0 - 5.0 NG/ML SMOKERS 0.0 - 10.1 NG/MLSERUM CEA LEVEL SHOULD NOT BE INTERPRETEDAS ABSOLUTE EVIDENCE FOR THE PRESENCEOR ABSENCE OF MALIGNANCY. METHODIS [employer]IA [employer] XPT CHEMILUMINOMETRICIMMUNOASSAY. VALUES OBTAINED WITHDIFFERENT ASSAY METHODS OR KITS CANNOTBE USED INTERCHANGEABLY. ID Date Data Source [id number] 02/27/2020 03:32:08 PM EST [facility] ROSA ISELA SPEC EXP DATE 03/08/2020PATI ENT ABO/Rh O POSITIVEANTIBODY SCREEN NEGATIVETESTING SITE PERFORMED AT [address] [facility] [address] BANK COMMENT BLOOD TYPE CONFIRMED. Name Value Range Interpretation Code Description Data Nadira rce(s) Supporting Document(s) ID Date Data Source [id number] 02/27/2020 03:14:55 PM EST [facility] Name Value Range Interpretation Code Description Data Nadira rce(s) Supporting Document(s) APTT 27.5 s (22.0-34.3) [facility] PERFORMED AT [address] [facility] [address] ID Date Data Source [id number] 02/27/2020 03:11:23 PM EST [facility] Name Value Range Interpretation Code Description Data Nadira rce(s) Supporting Document(s) SODIUM 141 mmol/L (136-145) [facility] POTASSIUM 4.2 mmol/L (3.6-5.2) [facility] CHLORIDE 107 mmol/L (100-108) [facility] CO2 28 mmol/L (22-31) [facility] ANION GAP 6 mmol/L (7-16) L [facility] UREA NITROGEN 7 mg/dL (7-24) [facility] CREATININE 0.70 mg/dL (0.60-1.00) [facility] BUN/CREAT RATIO 10.0 RATIO (10.0-20.0) [facility] GLUCOSE 85 mg/dL (70-99) [facility] CALCIUM 9.9 mg/dL (8.4-10.2) [facility] GFR >60 ml/min/1.73m2 (>59) [facility] GFR ( AMER) >60 ml/min/1.73m2 (>59) [facility] GFR INTERPRETATION [facility] --NORMAL KIDNEY FUNCTION OR MILD DISEASE - GFR >OR= 60CHRONIC KIDNEY DISEASE - GFR 15 - 59RENAL FAILURE - GFR <15 Est. GFR calculation based on the MDRDstudy equation, which assumes a steadystate for creatinine. Est. GFR should notbe used for medication dosing. ID Date Data Source [id number] 02/27/2020 02:54:46 PM EST [facility]AR[facility] Name Value Range Interpretation Code Description Data Nadira rce(s) Supporting Document(s) WBC 6.4 10*3/uL (4.1-11.0) [facility] [place] RBC 4.53 10*6/uL (4.00-5.40) [facility] HGB 14.4 g/dL (12.0-16.0) [facility] HCT 43.0 % (36.0-47.0) [facility] PERFORMED AT [address] [facility] [address] MCV 94.9 fL (80.0-95.0) [facility] MCH 31.9 pg (27.0-32.0) [facility] MCHC 33.6 g/dL (32.0-36.0) [facility] RDW 12.8 % (10.5-14.5) [facility] PLT 314 10*3/uL (150-450) [facility] MPV 8.1 fL (7.1-10.7) [facility] ID Date Data Source [id number] 02/15/2020 05:06:22 PM EST [facility] [address] [id number]# Surgical Pathology ReportAccession #:[id number](s) ReceivedA: Descending colon polypB: Descending colon massC: [...] 02/15/2020Electronically Signed Out By Jordon Astudillo MD [facility] [place] [id number] component performed at [facility], Histopathology, [address] [place] [address], [phone].Reported at [facility], [address] [place] [address], [phone]. This report may includeimmunohistochemical or in-situ hybridization results. Testing wasdeveloped and the performance characteristics determined by [facility] as required by CLIA '88. The FDA hasdetermined that approval for specific use is not necessary for clinicaluse. The quality of Hematoxylin and Eosin stains and as applicable, forall immunohistochemical and/or special stains, including positive andnegative controls, were reviewed and considered appropriate.ICD codes D12.6 C18.6CPT codesA: 46223YF: 99425RD: 39646F Name Value Range Interpretation Code Description Data Nadira rce(s) Supporting Document(s) ID Date Data Source [id number] 02/09/2020 10:39:07 AM EST [facility] NT INFORMATIONPatient MRN Name Date of Age Gend*PT [id number] Jose Puentes 1960 59 years F OPPT Location Admission Date/Time [facility] --- Yanni José MD([id number]) EPI ID CSN Admitting Provider [id number] Yanni José MD([id number])Colonoscopy Procedure NotePatient: Jose PatterSurgery Date: 02/09/2020Surgeon(s):DEANDRE Flowersre-operative [...] rce(s) Supporting Document(s) ID Date Data Source [id number] 02/06/2020 09:42:[address] [facility] LOW DOSE FOR LUNG CANCER SCREENING [id number] RESULTInterpreted by:Silvano Jj MDINDICATION: Lung cancer screening.TECHNIQUE: [...] rce(s) Supporting Document(s) ID Date Data Source [id number] 02/04/2020 10:00:00 AM EST [facility] ([facility]) Name Value Range Interpretation Code Description Data Nadira rce(s) Supporting Document(s) Coronavirus 2019 Nasopharygeal Laboratory test result [facility] ([facility]) This nucleic acid amplification test was developed and its performance characteristics determined by [employer]. Nucleic acid amplification tests include PCR and [...] detected) result in this assay. Performed at: [facility] [id number] Surveillance Officer: Obdulia Bryan MD, Phone: [phone] Not Detected ID Date Data Source [id number] 02/04/2020 10:00:00 AM EST [facility] Name Value Range Interpretation Code Description Data [facility] rce(s) Supporting Document(s) SARS coronavirus 2 RNA [facility] This lab was ordered by [facility] and reported by [facility]. ID Date Data Source [id number] 02/04/2020 08:44:00 AM EST [facility] ([employer] [facility]) Name Value Range Interpretation Code Description Data Nadira rce(s) Supporting Document(s) Thyrotropin [Units/volume] in Serum or Plasma by Detec tion limit <= 0.05 mIU/L 2.70 uIU/mL 0.36-3.74 [facility] ([facility] ) ID Date Data Source [id number] 02/04/2020 08:44:00 AM EST [facility] ([employer] [facility] Name Value Range Interpretation Code Description Data Nadira rce(s) Supporting Document(s) Urea nitrogen [Mass/volume] in Serum or Plasma 7 mg/dL 7-18 [facility] ([facility]) Glucose [Mass/volume] in Serum or Plasma 84 mg/dL 74-99 [facility] ([facility]) 100-125 mg/dL PRE-DIABETES/FASTING >126 mg/dL DIABETES/FASTING Sodium [Moles/volume] in Serum or Plasma 144 meq/L 136-145 [facility] ([facility]) Potassium [Moles/volume] in Serum or Plasma 4.1 meq/L 3.5-5.1 [facility] ([facility]) Creatinine 0.7 mg/dL 0.6-1.3 [facility] ([facility]) Calcium [Mass/volume] in Serum or Plasma 9.7 mg/dL 8.5-10.1 [facility] ([facility]) Carbon dioxide, total [Moles/volume] in Serum or Plasma 29 meq/L 21 -32 [facility] ([facility]) Chloride [Moles/volume] in Serum or Plasma 105 meq/L 98-107 [facility] ([facility]) Glomerular filtration rate/1.73 sq M pre dicted among non-blacks [Volume Rate/Area] in Serum or Plasma by Creatinine-based formula (MDRD) Laboratory test result [facility] Glomerular filtration rate/1.73 sq M pre dicted among blacks [Volume Rate/Area] in Serum or Plasma by Creatinine-based formula (MDRD) Laboratory test result [facility]) <content>CHRONIC KIDNEY DISEASE STAGING PER NKF</content>
<content></content>
<content>STAGE I & II GFR >= 60 NORMAL TO MILDLY DECREASED</content>
<content>STAGE III GFR 30-59 MODERATELY DECREASED</content>
<content>STAGE IV GFR 15-29 SEVERELY DECREASED</content>
<content>STAGE V GFR <15 VERY LITTLE GFR LEFT</content>
<content>ESRD GFR <15 ON MEMORY CARE PROGRAM RESIDENT</content>
<content></content> ID Date Data Source [id number] 02/04/2020 08:44:00 AM EST [facility] ([employer] [facility]) Name Value Range Interpretation Code Description Data Nadira rce(s) Supporting Document(s) Leukocytes [#/volume] in Blood by Automated count 6.8 x10*3/UL 4.1-10 .9 [facility] ([facility]) Erythrocytes [#/volume] in Blood by Automated count 4.62 x10*6/UL 4.2 0-6.30 [facility] ([facility]) Hemoglobin [Mass/volume] in Blood 15.0 g/dL 12.0-18.0 [facility] ([facility]) Hematocrit [Volume Fraction] of Blood by Automated count 42.1 % 3 7.0-51.0 [facility] ([facility]) MCH 32.5 pg 26.0-32.0 [facility]) MCV 91.2 fL 80.0-97.0 [facility]) MCHC 35.7 g/dL 31.0-38.0 [facility] ([facility]) Erythrocyte distribution width [Ratio] by Automated count 12.5 % 11.6-13.7 [facility] ([facility]) Platelets [#/volume] in Blood by Automated count 336 x10*3/UL 140-440 [facility] ([facility]) MPV 8.0 FL 7.8-11.0 [facility]) Mid % 5.7 % 1.7-9.3 [facility]) Lymph % 24.5 % 10.0-58.5 [facility] Lymph # 1.6 x10*3/UL 0.6-4.1 [facility] ([facility]) Mid # 0.5 x10*3/UL 0.1-0.6 [facility] ([facility]) Neut % 69.8 % 37.0-92.0 [facility] Neut # 4.7 x10*3/UL 2.0-7.8 [facility] ([facility]) ID Date Data Source [id number] 12/15/2019 09:08:00 AM EDT [facility] ([facility] ) Name Value Range Interpretation Code Description Data Nadira rce(s) Supporting Document(s) Thyroxine (T4) free [Mass/volume] in Serum or Plasma by Dialysis 1. 7 ng/dL [facility] ([facility] ) This test was developed and its performa nce characteristics determined by [facility]. It has not been cleared or approved by the Food and Drug Administration. Reference Range: Pubertal Children and Adults: 0.8 - 1.7 Performed at: [facility] [address] [place] [id number] Surveillance Officer: Betito Walton MD, Phone: [phone] Thyrotropin [Units/volume] in Serum or Plasma by Detec tion limit <= 0.05 mIU/L 7.470 uIU/ML 0.358-3.740 [facility] ([facility]) Thyroxine (T4) free [Mass/volume] in Serum or Plasma 1.75 ng/dL 0.76- 1.46 [facility] ([facility] ) Procedure Social History Code Duration Value Status Description Data Source(s ) Smoking 02/04/2021 12:00:00 AM EDT Patient is a former smoker completed Patient is a former smoker [facility] ([facility] ) Smoking 09/27/2020 12:00:00 AM EDT Patient is a former smoker completed Patient is a former smoker [facility] ([facility], [facility]) Alcohol intake 02/09/2020 12:00:00 AM EST Never completed [facility] Smoking 02/09/2020 12:00:00 AM EST Former smoker completed Former smoker [facility] Vital Signs ID Date Data Source [...] [Ratio] 17.7 kg/m2 17.7 k g/m2 [facility] ([facility]) [place] body weight 115 [lb_av] 115 [lb_av] [facility] T ([facility]) Body weight 45.360 kg 45.360 kg [facility] ([facility]) Body surface area Derived from formula 1.44 m2 1.44 m2 [facility] ([facility]) Systolic blood pressure 102 mm[Hg] 102 mm[Hg] M EDENT ([facility]) Diastolic blood pressure 80 mm[Hg] 80 mm[Hg] [facility] ([facility]) Heart rate 126 /min 126 /min [facility] ([facility]) Oxygen saturation in Arterial blood by Pulse oximetry 97 % 97 % [facility] ([facility]) Body height 63 [in_i] 63 [in_i] [facility] ([facility]) 5'3" Body weight 100.00 [lb_av] 100.00 [lb_av] [facility] T ([facility]) [place] body weight 115 [lb_av] 115 [lb_av] [facility] T ([facility]) Body weight 45.814 kg 45.814 kg [facility] ([facility]) Body surface area Derived from formula 1.45 m2 1.45 m2 [facility] ([facility]) Body weight 101.00 [lb_av] 101.00 [lb_av] [facility] ([facility]) Body height 63 [in_i] 63 [in_i] [facility] ([facility]) 5'3" Oxygen saturation in Arterial blood by Pulse oximetry 97 % 97 % [facility] ([facility]) Body mass index (BMI) [Ratio] 17.9 kg/m2 17.9 k g/m2 [facility] ([facility]) Systolic blood pressure 122 mm[Hg] 122 mm[Hg] [facility] ([facility]) Diastolic blood pressure 88 mm[Hg] 88 mm[Hg] [facility] ([facility]) Heart rate 95 /min 95 /min [facility] ([facility]) Systolic blood pressure 124 mm[Hg] 124 mm[Hg] [facility] ([facility]) Diastolic blood pressure 70 mm[Hg] 70 mm[Hg] [facility] ([facility]) Heart rate 94 /min 94 /min [facility] ([facility]) Body weight 110.31 [lb_av] 110.31 [lb_av] [facility] ([facility]) Oxygen saturation in Arterial blood by Pulse oximetry 98 % 98 % [facility] ([facility]) Oxygen saturation in Arterial blood by Pulse oximetry 95 % 95 % [facility] ([facility], [facility]) Systolic blood pressure 103 mm[Hg] 103 mm[Hg] [facility]) Body temperature 98.2 [degF] 98.2 [degF] [facility] ([facility], [facility]) Diastolic blood pressure 73 mm[Hg] 73 mm[Hg] [facility] ([facility], [facility]) Heart rate 94 /min 94 /min [facility] ([facility], [facility]) Body weight 120.00 [lb_av] 120.00 [lb_av] [facility] T ([facility], [facility]) Respiratory rate 20 /min 20 /min [facility] ( [facility], [facility]) Body height 64 [in_i] 64 [in_i] [facility] ([facility]) 5'4" Body mass index (BMI) [Ratio] 20.6 kg/m2 20.6 k g/m2 [facility] ([facility], [facility]) Body temperature 96.6 [degF] 96.6 [degF] [facility] ([facility], [facility]) Body weight 120.00 [lb_av] 120.00 [lb_av] [facility] T ([facility], [facility]) Systolic blood pressure 116 mm[Hg] 116 mm[Hg] M [facility] ([facility], [facility]) Diastolic blood pressure 80 mm[Hg] 80 mm[Hg] [facility] ([facility], [facility]) Heart rate 85 /min 85 /min [facility] ([facility], [facility]) Respiratory rate 14 /min 14 /min [facility] ( [facility], [facility]) Oxygen saturation in Arterial blood by Pulse oximetry 98 % 98 % [facility] ([facility], [facility]) Body height 64 [in_i] 64 [in_i] [facility] ([facility], [facility]) 5'4" Body mass index (BMI) [Ratio] 20.6 kg/m2 20.6 k g/m2 [facility] ([facility], [facility]) Body weight 124.50 [lb_av] 124.50 [lb_av] [facility] T ([facility] ) Diastolic blood pressure 60 mm[Hg] 60 mm[Hg] [facility] ([facility] ) Heart rate 76 /min 76 /min [facility] ([facility] ) Body mass index (BMI) [Ratio] 21.4 kg/m2 21.4 k g/m2 [facility] ([facility] ) Systolic blood pressure 90 mm[Hg] 90 mm[Hg] M [facility] ([facility] ) Body temperature 97.4 [degF] 97.4 [degF] [facility] ([facility] ) Body height 64 [in_i] 64 [in_i] [facility] ([facility] ) 5'4" Heart rate 98 /min 98 /min [facility] ([facility]) Body mass index (BMI) [Ratio] 23.9 kg/m2 23.9 k g/m2 [facility] ([facility]) Diastolic blood pressure 62 mm[Hg] 62 mm[Hg] [facility] ([facility]) Body height 62.5 [in_i] 62.5 [in_i] [facility] ([facility]) 5'2.50" Systolic blood pressure 94 mm[Hg] 94 mm[Hg] M [facility] ([facility]) Body weight 133.00 [lb_av] 133.00 [lb_av] [facility] T ([facility]) Oxygen saturation in Arterial blood by Pulse oximetry 93 % 93 % [facility] ([facility]) Diastolic blood pressure 84 mm[Hg] 84 mm[Hg] [facility] ([facility], [facility]) Body height 64 [in_i] 64 [in_i] [facility] ([facility], [facility]) 5'4" Body mass index (BMI) [Ratio] 24.2 kg/m2 24.2 k g/m2 [facility] ([facility], [facility]) Heart rate 83 /min 83 /min [facility] ([facility], [facility]) Respiratory rate 13 /min 13 /min [facility] ( [facility], [facility]) Oxygen saturation in Arterial blood by Pulse oximetry 98 % 98 % [facility] ([facility], [facility]) Body temperature 97.8 [degF] 97.8 [degF] [facility] ([facility], [facility]) Body weight 141.00 [lb_av] 141.00 [lb_av] [facility] T ([facility], [facility]) Systolic blood pressure 127 mm[Hg] 127 mm[Hg] [facility] ([facility], [facility]) Body height 64 [in_i] 64 [in_i] [facility] ([facility]) 5'4" Systolic blood pressure 110 mm[Hg] 110 mm[Hg] [facility] ([facility]) Diastolic blood pressure 70 mm[Hg] 70 mm[Hg] [facility] ([facility]) Body weight 141.25 [lb_av] 141.25 [lb_av] [facility] ([facility]) Heart rate 81 /min 81 /min [facility] ([facility]) Body temperature 97.3 [degF] 97.3 [degF] [facility] ([facility]) Body mass index (BMI) [Ratio] 24.2 kg/m2 24.2 k g/m2 [facility] ([facility]) Oxygen saturation in Arterial blood by Pulse oximetry 98 % 98 % [facility] ([facility]) Systolic blood pressure 113 [...] (applies t o non-numeric results) 119 mm[Hg] [facility] Diastolic blood pressure 74 mm[Hg] Normal (applies to non-numeric results) 74 mm[Hg] [facility] Heart rate 98 min Normal (applies to non-numeric resul ts) 98 min [facility] Deprecated Oxygen saturation in Capillary blood by Oximetry 97 % Normal (applies to non-numeric results) 97 % [facility] Respiratory rate 18 min Normal (applies to non-numeric results) 18 min [facility] Body temperature 36.9 yareli Normal (applies to non-numeric results) 36.9 yareli [facility] Body height 159.7152 cm Normal (applies to non-numeric res ults) 159.7152 cm [facility] Body mass index (BMI) [Ratio] 24.76 kg/m2 No rmal (applies to non-numeric results) 24.76 kg/m2 [facility] Body weight Measured 63.4 kg Normal (applies to non-num erik results) 63.4 kg [facility] Respiratory rate 14 /min 14 /min [...] [degF] [facility] ([facility]) Diastolic blood pressure 73 mm[Hg] 73 mm[Hg] [facility] Respiratory rate 16 /min 16 /min [facility] Oxygen saturation in Arterial blood by Pulse oximetry 100 % 100 % [facility] Systolic blood pressure 115 mm[Hg] 115 mm[Hg] [facility] Body temperature 36.94 Yareli 36.94 Yareli [facility] Heart rate 93 /min 93 /min [facility] Body height 162.6 cm 162.6 cm [facility] Body weight 66.679 kg 66.679 kg [facility] Body mass index (BMI) [Ratio] 25.23 kg/m2 25.23 kg/m2 [facility] Body mass index (BMI) [Ratio] 26.5 kg/m2 26.5 k g/m2 [facility] ([facility]) Heart rate 88 /min 88 /min [facility] ([facility]) Diastolic blood pressure 78 mm[Hg] 78 mm[Hg] [facility] ([facility]) LT Arm Body height 62.5 [in_i] 62.5 [in_i] [facility] ([facility]) 5'2.50" Body weight 147.00 [lb_av] 147.00 [lb_av] [facility] T ([facility]) Systolic blood pressure 122 mm[Hg] 122 mm[Hg] M [facility] ([facility]) LT Arm Body temperature 98.4 [degF] [...] g/m2 [facility] ([facility]) Heart rate 92 /min 92 /min [facility] ([facility]) Body mass index (BMI) [Ratio] 25.9 kg/m2 25.9 k g/m2 [facility] ([facility]) Oxygen saturation in Arterial blood by Pulse oximetry 96 % 96 % [facility] ([facility]) Systolic blood pressure 118 mm[Hg] 118 mm[Hg] M [facility] ([facility]) Diastolic blood pressure 68 mm[Hg] 68 mm[Hg] [facility] ([facility]) Body height 64 [in_i] 64 [in_i] [facility] ([facility]) 5'4" Body weight 151.12 [lb_av] 151.12 [lb_av] [facility] T ([facility]) ID Date Data Source [id number] 01/22/2020 12:50:54 PM [facility] Name Value Range Interpretation Code Description Data Source(s) WEIGHT RECORDED 152 lb 152 lb [facility] Body height Measured 63 in 63 in [facility] WEIGHT RECORDED 152 lb 152 lb [facility] Body height Measured 63 in 63 in [facility] Patient Treatment Plan of Care Planned Activity Planned Date Details Description Data Source (s) 30 ACTUAT umeclidinium 0.0625 MG/ACTUAT / vilanterol 0.025 MG/ACTUAT Dry Powder Inhaler [Anoro] 11/10/2020 12:00:00 AM EDT [facility] 30 ACTUAT umeclidinium 0.0625 MG/ACTUAT / vilanterol 0.025 MG/ACTUAT Dry Powder Inhaler [Anoro] 03/15/2020 12:00:00 AM EST [facility]
--- NOTE | 2021-02-11 11:12 | REP ---
INDICATION: Altered Mental Status. COMPARISON: AP 04/07/2020, CXR 05/28/2016. TECHNIQUE: AP portable seated. FINDINGS: Lungs are hyperinflated with diffuse emphysematous changes with bolus of emphysema in the mid and upper lung zones. No pleural effusion, dense consolidation or parenchymal mass there is no lateral pleural thickening, apical scar or pneumothorax. There is no an indwelling right jugular port catheter with tip in the SVC. Heart, mediastinal hilar contours grossly unremarkable. Pulmonary arteries prominent centrally suggesting pulmonary artery hypertension, likely on the basis of her COPD. There is calcified at the arch but without aneurysm. Airway intact bony thorax shows no acute compression deformity. IMPRESSION: 1. COPD with bullous emphysematous change, basilar interstitial prominence but no dense consolidation, pleural effusion, cardiomegaly, edema or other acute finding. <Electronically signed by Luiz Calix > 02/11/21 1235
[2021-02-11] MEDS ORDERED: ASPIRIN 325 MG TAB PO ONE (11:25)
[2021-02-11 11:52] LABS: BASO # 0.1 10^3/uL (0.0-0.2); BASO % 0.7 % (0.0-1.0); EOS % 0.1 % (0.0-3.0); HEMATOCRIT 39.1 % (36.0-47.0); HEMOGLOBIN 12.6 g/dl (12.0-15.5); LYMPH % 11.3 % (24.0-44.0); MEAN CORPUSCULAR HEMOGLOBIN 32.1 pg (27.0-33.0); MEAN CORPUSCULAR HGB CONC 32.2 g/dl (32.0-36.5); MEAN CORPUSCULAR VOLUME 99.5 fl (80.0-96.0); MONO # 0.9 10^3/uL (0.0-0.8); MONO % 9.9 % (2.0-8.0); NEUTROPHILS % 77.7 % (36.0-66.0); PLATELET COUNT, AUTOMATED 286 10^3/uL (150-450); RED BLOOD COUNT 3.93 10^6/uL (4.00-5.40)
[2021-02-11] MEDS ORDERED: GABA-282 PO (12:13)
[2021-02-11] MEDS ORDERED: LEVO125T4 PO (12:13)
[2021-02-11] MEDS ORDERED: DRON5CAP13 PO (12:13)
[2021-02-11] MEDS ORDERED: HOME MED LIST COMPLETE! XX SCH (12:15)
[2021-02-11 12:31] LABS: ACETAMINOPHEN LEVEL 3.7 UG/ML (10.0-30.0); ALBUMIN 2.9 GM/DL (3.2-5.2); ALT/SGPT 22 U/L (12-78); BILIRUBIN,DIRECT 0.2 MG/DL (0.0-0.2); BILIRUBIN,TOTAL 0.6 MG/DL (0.2-1.0); BLOOD UREA NITROGEN 7 MG/DL (7-18); CALCIUM LEVEL 9.5 MG/DL (8.5-10.1); CARBON DIOXIDE LEVEL 31 MEQ/L (21-32); CHLORIDE LEVEL 105 MEQ/L (98-107); CK-MB VALUE MASS < 1.0 NG/ML (<3.6); CPK CREATINE PHOSPHOKINASE 28 U/L (26-192); CREATININE FOR GFR 0.39 MG/DL (0.55-1.30); ETHYL ALCOHOL (ETHANOL) < 0.003 % (0.000-0.010); GLOMERULAR FILTRATION RATE > 60.0 (>51); GLUCOSE, FASTING 97 MG/DL (70-100); LIPASE 931 U/L (73-393); MB/CK RELATIVE INDEX 3.57 (< OR =4); POTASSIUM SERUM 3.7 MEQ/L (3.5-5.1); SALICYLATE LEVEL 1.8 MG/DL (5.0-30.0); SODIUM LEVEL 142 MEQ/L (136-145); THYROID STIMULATING HORMONE 0.155 uIU/ML (0.358-3.740); TOTAL PROTEIN 5.9 GM/DL (6.4-8.2); TROPONIN I < 0.02 NG/ML (< 0.10)
[2021-02-11] MEDS ORDERED: ISOVUE-370 76% 100ML VIAL As Ordered ONE (12:51)
[2021-02-11 13:52] LABS: FREE T4 1.88 NG/DL (0.76-1.46)
--- NOTE | 2021-02-11 14:04 | REP ---
INDICATION: colon cancer, stroke. COMPARISON: 10/09/2011 CT TECHNIQUE: CT angiogram chest performed following the intravenous administration of 100 cc of Isovue 370. Sagittal and coronal standard and MIP reconstruction images are provided. FINDINGS: Lungs: Some bullous emphysematous changes significantly in the mid and upper lung zones are unchanged. Lesser emphysematous changes in the lower lung zones. No effusion, infiltrate, nodule or mass. Mediastinum: There is no mass, pathologic sized mediastinal adenopathy or fluid. Pulmonary arteries: The main, right and left pulmonary arteries in the mediastinum are without filling defect. Some prominence of the central pulmonary arteries suggest pulmonary artery hypertension, presumably on the basis of her COPD. The lobar, segmental and subsegmental arteries are without filling defects Gloria: No adenopathy. Axilla/supraclavicular: No adenopathy. There is indwelling port catheter via the right jugular route. The tip in SVC. Pleura: No effusion, pleural based mass or calcified pleural plaque. Heart: Not enlarged. No pericardial thickening or effusion Thoracic aorta: There are scattered atherosclerotic calcifications in the thoracic aorta. No aneurysm or dissection. Upper abdominal structures: Prior cholecystectomy. Mild prominence left lobe of the liver. No hepatomegaly or focal lesion or biliary dilatation. No ascites. Clips from prior cholecystectomy. Adrenal glands intact. Visualized osseous structures: Nothing acute. IMPRESSION: No CT evidence of pulmonary embolism. No effusion or acute infiltrate. Changes of COPD and bullous emphysematous lung findings mid and upper lung zones, somewhat progressive from 2012. No calcified pleural plaques, pleural based mass, acute infiltrate or other significant new lung finding. No acute bony findings. Thoracic aorta without aneurysm or dissection. No evidence of metastatic disease from her known colon cancer on this study. Prior cholecystectomy. <Electronically signed by Luiz Calix > 02/11/21 1400
--- NOTE | 2021-02-11 14:17 | REP ---
INDICATION: elevated lipase. COMPARISON: 08/16/2020 TECHNIQUE: Bolus 100 mL Isovue 370 scanning through the abdomen pelvis with coronal and sagittal reconstructions. FINDINGS: CT abdomen/pelvis: Lung bases show some minor basilar fibrotic changes and COPD with some emphysematous bullous change. This is stable low-density change of the liver with some enlargement of the left hepatic lobe and slight contour lobulations of the liver that might reflect fatty infiltration and chronic liver disease. No biliary dilatation or hepatic mass. Clips from prior cholecystectomy noted. Spleen is not enlarged. The adrenal glands are normal. The bilateral kidneys show symmetric enhancement and without stone, mass, hydronephrosis or perinephric edema. No hydroureter was identified. Pancreatic duct is mildly prominent but this appearance is unchanged common duct in the pancreatic head is normal for post cholecystectomy patient has and no calcified stones are seen within it. I see no inflammatory changes in the peripancreatic fat, edema or adenopathy. Lung window review of all CT slices in the abdomen pelvis shows no perforation or abscess. The aorta has atherosclerotic calcifications without aneurysm. No periaortic, other retroperitoneal or pathologic sized mesenteric lymphadenopathy. Small bowel loops shows nonspecific wall thickening proximally but no dilatation. The colon shows some wall enhancement and anastomotic suture line in the pelvis from sigmoid resection and reanastomosis. This appears unchanged. Wall thickening of the distal sigmoid and rectum as well as the other segments of colon suggesting skip colitis may be present. No ascites. Bladder shows the only small amount of the urine within no stone, mass, wall thickening or debris. There is no ventral or inguinal hernia nor pathologic sized inguinal adenopathy. No abdominal or pelvic adenopathy. The bone windows show lumbar and lower thoracic spine, the visualized ribs, the sacrum, pelvis and hips with minor degenerative changes but no destructive lesion or fracture IMPRESSION: 1. There is a been a prior sigmoid resection and reanastomosis. There are loops of colon with some wall thickening and edema but no adjacent inflammatory change in pericolonic fat. The sigmoid distal to the anastomosis as well as rectum shows some wall thickening and enhancement. 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 2. Small bowel loops without definite inflammatory change. No ascites or free air. There is no appendix. 3. Low-density liver with enlargement of the left lobe and slight lobulations suggesting chronic liver disease. 4. Status post cholecystectomy without biliary dilatation. Pancreas shows some mild ductal dilatation of the pancreatic duct and common bile duct within the pancreatic head is appropriate for post cholecystectomy patient without a calcified filling defect. No peripancreatic edema, fluid collection or adenopathy. 5. The other solid organs in the upper abdomen, aorta and branches bladder and bone structures without acute finding. <Electronically signed by Luiz Calix > 02/11/21 6609
[2021-02-11] MEDS ORDERED: LORazepam 0.5 MG TAB PO STA (15:18)
[2021-02-11] MEDS ORDERED: LORazepam 2 MG/ML VIAL IV ONE (15:45)
--- OUTSIDE RECORDS SUMMARY | 2021-02-11 17:00 | CCD ---
Author Author [facility] Address Unknown Phone Unavailable Care Team Providers Care Lock Plater Name Role Phone Kwesi, Claudine FILLETER Unavailable Unavailable Kwesi, Claudine FILLETER Unavailable Unavailable Kwesi, Claudine FILLETER Unavailable Unavailable Kwesi, Claudine FILLETER Unavailable Unavailable Kwesi, Claudine FILLETER Unavailable Unavailable Kwesi, Claudine FILLETER Unavailable Unavailable Kwesi, Claudine FILLETER Unavailable Unavailable Kwesi, Claudine FILLETER Unavailable Unavailable Kwesi, Claudine FILLETER Unavailable Unavailable Kwesi, Claudine FILLETER Unavailable Unavailable Kwesi, Claudine FILLETER Unavailable Unavailable Kwesi, Claudine FILLETER Unavailable Unavailable Kwesi, Claudine FILLETER Unavailable Unavailable Kwesi, Claudine FILLETER Unavailable Unavailable Kwesi, Claudine FILLETER Unavailable Unavailable Kwesi, Claudine FILLETER Unavailable Unavailable Kwesi, Claudine FILLETER Unavailable Unavailable Kwesi, Claudine FILLETER Unavailable Unavailable Kwesi, Claudine FILLETER Unavailable Unavailable Kwesi, Claudine FILLETER Unavailable Unavailable Kwesi, Claudine FILLETER Unavailable Unavailable Kwesi, Claudine FILLETER Unavailable Unavailable Kwesi, Claudine FILLETER Unavailable Unavailable Kwesi, Claudine FILLETER Unavailable Unavailable Kwesi, Claudine FILLETER Unavailable Unavailable Kwesi, Claudine FILLETER Unavailable Unavailable Kwesi, Claudine FILLETER Unavailable Unavailable Kwesi, Claudine FILLETER Unavailable Unavailable Kwesi, Claudine FILLETER Unavailable Unavailable Kwesi, Claudine FILLETER Unavailable Unavailable Kwesi, Claudine FILLETER Unavailable Unavailable Kwesi, Claudine FILLETER Unavailable Unavailable Kwesi, Claudine FILLETER Unavailable Unavailable Kwesi, Claudine FILLETER Unavailable Unavailable Kwesi, Claudine FILLETER Unavailable Unavailable Pham, J Pentecostalism Unavailable Pham, J Pentecostalism Unavailable Pham, J Pentecostalism Unavailable Pham, J Pentecostalism Unavailable Pham, J Pentecostalism Unavailable Pham, J Pentecostalism Unavailable Pham, J Pentecostalism Unavailable BRYANT, SHABNAM PA Unavailable Unavailable BRYANT, [...] Unavailable Unavailable BRYANT, SHABNAM PA Unavailable Unavailable PHAM ., J RELIGION . Unavailable Unavailable PHAM ., J RELIGION . Unavailable Unavailable MEDENT_104, NA Unavailable [phone] RING, K BELLA PA Unavailable Unavailable RING, [...] Unavailable Unavailable Agheli, Aref MD Unavailable Unavailable Mick, Subrat Unavailable Mick, Subrat Unavailable Mick, Subrat Unavailable Mick, Subrat Unavailable Macho Quintanilla MD Unavailable Unavailable Macho Quintanilla MD Unavailable Unavailable Macho Quintanilla MD Unavailable Unavailable Macho Quintanilla MD Unavailable Unavailable Macho Quintanilla MD Unavailable Unavailable Macho Quintanilla MD Unavailable Unavailable White, Briseida MECHATRONICS TECHNICIAN Unavailable Unavailable White, Briseida MECHATRONICS TECHNICIAN Unavailable Unavailable White, Briseida MECHATRONICS TECHNICIAN Unavailable Unavailable White, Briseida MECHATRONICS TECHNICIAN Unavailable Unavailable White, Briseida MECHATRONICS TECHNICIAN Unavailable Unavailable White, Briseida MECHATRONICS TECHNICIAN Unavailable Unavailable White, Briseida MECHATRONICS TECHNICIAN Unavailable Unavailable White, Briseida MECHATRONICS TECHNICIAN Unavailable Unavailable White, Briseida MECHATRONICS TECHNICIAN Unavailable Unavailable White, Briseida MECHATRONICS TECHNICIAN Unavailable Unavailable White, Briseida MECHATRONICS TECHNICIAN Unavailable Unavailable White, Briseida MECHATRONICS TECHNICIAN Unavailable Unavailable White, Briseida MECHATRONICS TECHNICIAN Unavailable Unavailable CLAUDINE HUBER Unavailable Unavailable Yanni José MD Unavailable Unavailable Yanni José MD Unavailable Unavailable Yanni José MD Unavailable Unavailable Yanni José MD Unavailable Unavailable Yanni José MD Unavailable Unavailable Yanni José MD Unavailable Unavailable Yanni José MD Unavailable Unavailable Yanni José MD Unavailable Unavailable Yanni José MD Unavailable Unavailable Yanni oJsé MD Unavailable Unavailable Yanni José MD Unavailable [...] Unavailable Unavailable Yanni José MD Unavailable Unavailable PlocYanni rocha MD Unavailable Unavailable PlocYanni rocha MD Unavailable Unavailable PlocYanni rocha MD Unavailable Unavailable PlocYanni rocha MD Unavailable Unavailable PlocYanni rocha MD Unavailable Unavailable PlocYanni rocha MD Unavailable Unavailable PlocYanni rocha MD Unavailable Unavailable PlocYanni rocha MD Unavailable Unavailable PlocekYanni MD Unavailable Unavailable PlocYanni rocha MD Unavailable Unavailable PlocYanni rocha MD Unavailable Unavailable PlocekYanni MD Unavailable Unavailable PlocekYanni MD Unavailable Unavailable PlocekYanni MD Unavailable Unavailable PlocekYanni MD Unavailable Unavailable PlocekYanni MD Unavailable Unavailable PlocYanni rocha MD Unavailable Unavailable PlocYanni rcoha MD Unavailable Unavailable PlocYanni rocha MD Unavailable Unavailable PlYanni stone MD Unavailable Unavailable PlYanni stone MD Unavailable Unavailable PlYanni stone MD Unavailable Unavailable PlYanni stone MD Unavailable Unavailable PlYanni stone MD Unavailable Unavailable PlYanni sotne MD Unavailable Unavailable PlYanni stone MD Unavailable Unavailable PlYanni stone MD Unavailable Unavailable PlYanni stone MD Unavailable Unavailable PlYanni stone MD Unavailable Unavailable PlYanni stone MD Unavailable Unavailable PlYanni stone MD Unavailable Unavailable PlYanni stone MD Unavailable Unavailable PlYanni stone MD Unavailable Unavailable PlYanni stone MD Unavailable Unavailable PlYanni stone MD Unavailable Unavailable ALEX (ZEB), Joyce LICONA MD [...] MD Unavailable Unavailab le ALEX (ZEB), Joyce LCIONA MD Unavailable Unavailab le ALEX (ZEB), Joyce [...] (ZEB), Joyce LICONA MD Unavailable Unavailab le CODY, B FREDRICK MECHATRONICS TECHNICIAN Unavailable Unavailable CODY, B FREDRICK MECHATRONICS TECHNICIAN Unavailable Unavailable CODY, B FREDRICK MECHATRONICS TECHNICIAN Unavailable Unavailable CODY, B FREDRICK MECHATRONICS TECHNICIAN Unavailable Unavailable CODY, B FREDRICK MECHATRONICS TECHNICIAN Unavailable Unavailable CODY, B FREDRICK MECHATRONICS TECHNICIAN Unavailable Unavailable CODY, B FREDRICK MECHATRONICS TECHNICIAN Unavailable Unavailable CODY, B FREDRICK MECHATRONICS TECHNICIAN Unavailable Unavailable CODY, B FREDRICK MECHATRONICS TECHNICIAN Unavailable Unavailable CODY, B FREDRICK MECHATRONICS TECHNICIAN Unavailable Unavailable CODY, B FREDRICK MECHATRONICS TECHNICIAN Unavailable Unavailable CODY, B FREDRICK MECHATRONICS TECHNICIAN Unavailable Unavailable CODY, B FREDRICK MECHATRONICS TECHNICIAN Unavailable Unavailable CODY, B FREDRICK MECHATRONICS TECHNICIAN Unavailable Unavailable CODY, B FREDRICK MECHATRONICS TECHNICIAN Unavailable Unavailable CODY, B FREDRICK MECHATRONICS TECHNICIAN Unavailable Unavailable CODY, B FREDRICK MECHATRONICS TECHNICIAN Unavailable Unavailable CODY, B FREDRICK MECHATRONICS TECHNICIAN Unavailable Unavailable CODY, B FREDRICK MECHATRONICS TECHNICIAN Unavailable Unavailable CODY, B FREDRICK MECHATRONICS TECHNICIAN Unavailable Unavailable CODY, B FREDRICK MECHATRONICS TECHNICIAN Unavailable Unavailable CODY, B FREDRICK MECHATRONICS TECHNICIAN Unavailable Unavailable CODY, B FREDRICK MECHATRONICS TECHNICIAN Unavailable Unavailable CODY, B FREDRICK MECHATRONICS TECHNICIAN Unavailable Unavailable CODY, B FREDRICK MECHATRONICS TECHNICIAN Unavailable Unavailable CODY, B FREDRICK MECHATRONICS TECHNICIAN Unavailable Unavailable CODY, B FREDRICK MECHATRONICS TECHNICIAN Unavailable Unavailable CODY, B FREDRICK MECHATRONICS TECHNICIAN Unavailable Unavailable CODY, B FREDRICK MECHATRONICS TECHNICIAN Unavailable Unavailable CODY, B FREDRICK MECHATRONICS TECHNICIAN Unavailable Unavailable CODY, B FREDRICK MECHATRONICS TECHNICIAN Unavailable Unavailable CODY, B FREDRICK MECHATRONICS TECHNICIAN Unavailable Unavailable CODY, B FREDRICK MECHATRONICS TECHNICIAN Unavailable Unavailable CODY, B FREDRICK MECHATRONICS TECHNICIAN Unavailable Unavailable CODY, B FREDRICK MECHATRONICS TECHNICIAN Unavailable Unavailable CODY, B FREDRICK MECHATRONICS TECHNICIAN Unavailable Unavailable CODY, B FREDRICK MECHATRONICS TECHNICIAN Unavailable Unavailable CODY, B FREDRICK MECHATRONICS TECHNICIAN Unavailable Unavailable CODY, B FREDRICK MECHATRONICS TECHNICIAN Unavailable Unavailable CODY, B FREDRICK MECHATRONICS TECHNICIAN Unavailable Unavailable CODY, B FREDRICK MECHATRONICS TECHNICIAN Unavailable Unavailable CODY, B FREDRICK MECHATRONICS TECHNICIAN Unavailable Unavailable CODY, B FREDRICK MECHATRONICS TECHNICIAN Unavailable Unavailable CODY, B FREDRICK MECHATRONICS TECHNICIAN Unavailable Unavailable CODY, B FREDRICK MECHATRONICS TECHNICIAN Unavailable Unavailable CODY, B FREDRICK MECHATRONICS TECHNICIAN Unavailable Unavailable CODY, B FREDRICK MECHATRONICS TECHNICIAN Unavailable Unavailable CODY, B FREDRICK MECHATRONICS TECHNICIAN Unavailable Unavailable CODY, B FREDRICK MECHATRONICS TECHNICIAN Unavailable Unavailable CODY, B FREDRICK MECHATRONICS TECHNICIAN Unavailable Unavailable CODY, B FREDRICK MECHATRONICS TECHNICIAN Unavailable Unavailable CODY, B FREDRICK MECHATRONICS TECHNICIAN Unavailable Unavailable CODY, B FREDRICK MECHATRONICS TECHNICIAN Unavailable Unavailable CODY, B FREDRICK MECHATRONICS TECHNICIAN Unavailable Unavailable CODY, B FREDRICK MECHATRONICS TECHNICIAN Unavailable Unavailable CODY, B FREDRICK MECHATRONICS TECHNICIAN Unavailable Unavailable CODY, B FREDRICK MECHATRONICS TECHNICIAN Unavailable Unavailable CODY, B FREDRICK MECHATRONICS TECHNICIAN Unavailable Unavailable CODY, B FREDRICK MECHATRONICS TECHNICIAN Unavailable Unavailable CODY, B FREDRICK MECHATRONICS TECHNICIAN Unavailable Unavailable CODY, B FREDRICK MECHATRONICS TECHNICIAN Unavailable Unavailable CODY, B FREDRICK MECHATRONICS TECHNICIAN Unavailable Unavailable PICKERAL JR, J CAMPOS PA-C [...] Unavailable Unavailable SilverAyanna bullock MD Unavailable Unavailable SilverAaynna bullock MD Unavailable Unavailable SilverAyanna bullock MD [...] protected by Article 27-F of the [facility] Public Health law. If you continue you may have access to information: Regarding HIV / AIDS; Provided by facilities licensed or operated by the [facility] Office of Mental Health; or Provided by the [facility] Office for People With Developmental Disabilities. If such information is present, then the following [facility] mandated warning applies: This information has [...] law may result in a fine or fdc sentence or both. A general authorization for the release of medical or other information is NOT sufficient authorization for further disc losure. Allergies and Adverse Reactions Type Description Substance Reaction Status Data Source(s ) Drug allergy No Known Drug Allergies No Known Drug Allergies [facility] Family History Family Member Name Family Member Gender Family Member Status Date o f Status Description Data Source(s) Unknown Unknown Problem [facility] ([facility]) Unknown Unknown Problem [facility] ([facility] BROTHER Unknown Male Problem MEDENT ([facility]) () - 01/2016 Unknown Female Problem MEDENT ([facility] Unknown Female Problem [facility] ([facility]) Unknown Female Problem MED[facility] ([facility]) Unknown Female Problem MED[facility] ([facility]) Unknown Female Problem MEDENT ([facility]) Unknown Female Problem MEDENT ([facility]) Encounters Encounter Providers Location Date Indications Data Source(s ) Outpatient Attender: Dominik SoanalAttender: DOMINIK HAND . 02/14/2021 12:00:00 AM [facility] Outpatient Attender: FREDRICK ROSS NP Physical Therapy 11:15:00 AM EDT MEDENT ([facility]) Outpatient Attender: Bijan Frederick MDReferrer: Randall carrera MD [id number] 02/02/2021 05:43:38 PM EDT [place] [facility] [place]: Bijan AREVALOeferrer: Randall carrera MD [id number] 01/31/2021 01:15:37 PM EDT [place] [facility] [place]: Bijan Frederick MDReferrer: Randall carrera [...] Rachel/Teetee/Marah montoya/Blake 12/23/2020 08:45:00 AM EDT MED[facility] ([facility] ) Outpatient Admitter: Macho Quintanilla MDReferrer: Macho Quintanilla MD 12/20/2020 12:00:00 AM EDT Disorder of thyroid, unspecified [facility] Disorder of thyroid, unspecified Outpatient Attender: [...] Rachel/Teetee/Marah montoya/Blake 12/01/2020 10:45:00 AM EDT MEDENT ([facility] ) Outpatient Attender: Areyanet Frederick MDReferrer: [...] Physical Therapy 11/03/2020 10:45:00 AM EDT MEDENT ([facility]) Outpatient Attender: Areyanet Frederick [...] SHABNAM tucker 09/27/2020 03:10:00 PM EDT MED[facility] ([facility] Outpatient Attender: Bijan [...] Briseida jimenez 09/11/2020 01:40:00 PM EDT MEDENT ([facility]) Outpatient Attender: Areyanet [...] NP Physical Therapy 04:15:00 PM EDT MEDENT ([facility]) Outpatient Attender: Bijan [...] CAMPOS Bello 08/13/2020 10:40:00 AM EDT MEDENT ([facility] ) Outpatient Attender: Areyanet Agerick MDReferrer: [...] [facility] Out[facility] Attender: BELLA Cary [facility] 06/30/2020 03:10:00 PM EDT MED[facility] ([facility] Outpatient Attender: FREDRICK ROSS NP Physical Therapy 10:45:00 AM EDT MED[facility] ([facility]) Outpatient Attender: Bijan [...] [facility] Attender: Areyanet Agerick MDReferrer: Randall acrrera MD [id number] 06/04/2020 03:19:42 PM EST Hematology [...] EST - 05/25/2020 04:40:00 PM EST [facility] Outpatient Attender: Bijan Frederick MDReferrer: [...] [facility] 04/23/2020 01:55:00 PM EST [facility] Outpatient 04/23/2020 01:55:00 PM EST [facility] Outpatient Attender: Areyanet Frederick MDReferrer: [...] 12:25:12 PM EST [facility] Outpatient Referrer: Randall Silver MD 03/24/2020 06:40:49 AM EST [facility] Outpatient Referrer: Randall Silver MD 03/24/2020 06:37:18 AM EST [facility] OFFICE OUTPATIENT VISIT 15 MINUTES Attender: FREDRICK ROSS MECHATRONICS TECHNICIAN Physical Therapy 03/22/2020 08:00:00 AM EST MEDENT ([facility]) Outpatient Referrer: Randall Silver MD 03/19/2020 03:03:09 PM EST [facility] Outpatient 03/19/2020 02:48:09 PM EST [facility] Outpatient Attender: Claudine Damon 12:40:00 PM EST MED[facility] ([facility] ) Inpatient Attender: Randall Silver MD 03/05/2020 01:53:37 PM EST [facility] [place] [facility] Inpatient Attender: Randall Silver MDAdmitter: Randall rey MD 03/05/2020 08:22:00 AM EST - 03/13/2020 04:24:00 PM EST DESCENDING COLON CARCINOMA C18.6 [facility] DESCENDING COLON CARCINOMA C18.6 Patient discharged. Inpatient Attender: Randall Silver MD 03/05/2020 08:22:00 AM EST [facility] ( in Healthcare facility) Attender: Randall Silver MDAdmitter: Randall Silver MDConsultant: CLAUDINE HUBER 03/05/2020 08:22:00 AM EST [facility] Outpatient Attender: Randall Silver MD 03/04/2020 09:00:00 AM [facility] Outpatient Attender: Randall Silver MD 03/03/2020 03 :00:00 PM EST STAT C18.6, Z15.09 staging, no oral just IV [facility] STAT C18.6, Z15.09 staging, no oral just IV Outpatient Attender: NA MEDENT_104 CMP Internal Med at [facility] 03/02/2020 08:50:00 AM EST [facility] ([facility] Outpatient Attender: Randall Silver MD 02/27/2020 02:54:47 PM EST [facility] [place] [facility] Outpatient Attender: Randall Silver MD 02/27/2020 12 :09:00 PM EST ROBOTIC LAPAROSCOPIC ASSISTED POSSIBLE OPEN SIGMOID RESECTIO [facility] ROBOTIC LAPAROSCOPIC ASSISTED POSSIBLE O PEN SIGMOID RESECTIO Outpatient Attender: Randall Rosas 02/19/2020 12:00:00 PM EST [facility] ([facility]) Outpatient Attender: Claudine Damon 07:20:00 AM EST MEDENT ([facility] ) Outpatient Referrer: MANUEL PHAM . 02/04/2020 12:00:0 0 AM EST Encounter for screening for malignant neoplasm of respiratory organs [facility] Encounter for screening for malignant ne oplasm of respiratory organs Outpatient Attender: Yanni José MD Attender: Randall Silver MDAdmitter: Yanni José MD [id number] 01/19/2020 03:14:27 PM EDT - 02/09/2020 11:31:00 AM EST [facility] Patient discharged. Outpatient Attender: Randall Rosas 01/15/2020 01:15:00 PM EDT MED[facility] ([facility]) Outpatient Attender: FREDRICK ROSS NP Physical Therapy 08:45:00 AM EDT MEDENT ([facility]) Outpatient Attender: MANUEL PHAM . [id number] 12:00:00 AM EDT - 01/20/2019 01:44:11 PM EDT Encounter for immunization [facility] Encounter for immunization Immunizations Vaccine Date Status Description Data Source(s) COVID-19 VACCINE Pfizer 09/27/2020 12:00:00 AM EDT completed [facility] Vaccine Series Complete: YESThis Data wa s Submitted to [facility] Via [facility]. COVID-19 VACC, MRNA(PFIZER)/PF 09/06/2020 12:00:00 AM EDT completed [facility] COVID-19 VACCINE Pfizer 09/06/2020 12:00:00 AM EDT completed [facility] Vaccine Series Complete: NOThis Data was Submitted to [facility] Via [employer]. INFLUENZA VIRUS VACCINE QUADRIVAL [id number](6 MOS AND UP)/PF 01/25/2020 12:00:00 AM EDT [...] DAILY DOSE = 2 CAPSULES SOLD: 12/23/2020 [facility] Atropine Sulfate 0.025 MG / Diphenoxylat e [...] Inhale 1 puff into the lungs daily [facility] Other emphysema 125 mcg 11/03/2020 12:00:00 [...] 09/11/2020 12:00:00 AM EDT ORAL completed MEDENT ([facility]) NITROFURANTOIN, MACROCRYSTALS 25 MG / Ni trofurantoin, [...] 12:00:00 AM EDT ORAL active M EDENT ([facility]) 150 mcg 08/24/2020 12:00:00 [...] 08/13/2020 12:00:00 AM EDT ORAL active MEDENT ([facility]) Potassium Chloride 10 MEQ Extended Release [...] 06/30/2020 12:00:00 AM EDT ORAL completed [facility] ([facility]) Compazine 06/30/2020 12:00:00 AM EDT active MEDENT ([facility]) Chemotherapy 06/30/2020 12:00:00 AM EDT activ e MEDENT ([facility]) 100 mg 06/30/2020 [...] 06/15/2020 12:00:00 AM EDT ORAL completed MED[facility] ([facility]) 100 mg 06/15/2020 12:00:00 AM EDT [...] LUNGS DAILY SOLD: 06/15/2020 [facility] Nystatin [id number] UNT/ML Oral Suspension Nystatin 03/15/2020 12:00:00 AM [...] Inhale 1 puff into the lungs daily [facility] Other emphysema 100,000 unit/mL 03/15/2020 12:00:00 [...] active [facility] ([facility]) Neomycin Sulfate 500 MG Oral Tablet Neomycin Sulfate 02/23/2020 12:00:00 AM EST active [facility] ( [facility]) 500 mg 02/23/2020 12:00:00 AM EST tablet [...] DIRECTED SOLD: 02/25/2020 [facility] Magnesium Chloride 0.01455 MEQ/ML / Pota ssium Chloride 0.0497 MEQ/ML / Sodium Acetate 0.0163 MEQ/ML / Sodium Chloride 0.0899 MEQ/ML / Sodium gluconate 5.02 MG/ML Injectable Solution [Normosol-R] electrolyte-R (NORMOSOL-R/PLASMALYTE-R) solution electrolyte-R (NORMOSOL-R/PLASMALYTE-R) solution 02/08 10:00:00 AM EST Intravenous active at 1 00 mL/hr, Intravenous, Continuous, Starting Sun02/09/20 at 1000, Pre-op [facility] Medication administered onsite normal saline flush 0.9 % injection 3 mL 04856-377-12 02/09/2020 10:00:00 AM EST 3 mL Intravenous active 3 mL , Intravenous, Every 8 hours (scheduled), First dose on Sun02/09/20 at 1000, Pre-op
Rapid push positive pressure flushing shall be performed with a 10 cc normal saline syringe to check the PATENCY of a PIV site prior to any infusion therapy initiation unless resistance is met.
[facility] Medication administered onsite buspirone hydrochloride 10 [...] BY MOUTH TWICE A DAY SOLD: 01/09/2020 [facility] Insurance Providers Payer name Policy type / Coverage type Policy ID Covered libertarian ID Covered libertarian's relationship to guevara Policy Guevara Plan Information [place] 306/806 [id number] [id number] [place] 306/806 [id number] HU2 [id number] [place] 306/806 [id number] HU2 [id number] [place] Commercial [id number] Family Dependent BS [place] Trad/[place] Medigap Part B [id number] Family Dependent [id number] [place] Tr[place] Medigap Part B [id number] Family Dependent [id number] [place]/[place] Commercial [id number] Family Dependent [id number] [place] [employer] Commercial [id number] Family Dependent [id number] [place] [employer] Commercial [id number] Family Dependent [id number] [place] [employer] Commercial [id number] Family Dependent [id number] [place] [employer] Commercial [id number] Family Dependent [id number] [place] [employer] Commercial [id number] Family Dependent [id number] [facility] [id number] Spouse [id number] [place] 306/806 [id number] HU2 [id number] [employer] Primary [id number] [place] 306/806 [id number] HU2 [id number] [place] PPO 302/307 [id number] [id number] [place] BCBS [id number] [phone] [id number] [place] 306/806 [id number] HU2 [id number] [place] [employer]BS [id number] Spo VYS BS [place] Trad/[place] Commercial [id number] Family Dependent [id number] [place] Commercial [id number] Family Dependent [id number] [place] Trad/[place] Commercial [id number] Family Dependent [id number] BS [place] Commercial [id number] Family Dependent [id number] BS [place] Commercial [id number] Family Dependent [id number] BS [place] Commercial [id number] Family Dependent [id number] [place] Tr[employer] Commercial [id number] Family Dependent [id number] BS [place] Commercial [id number] Family Dependent [id number] [place] Tr[employer] Commercial [id number] Family Dependent [id number] [place] Tr[employer] Commercial [id number] Family Dependent [id number] [place] Trad/[employer] Commercial [id number] Family Dependent [id number] BS [place] Commercial [id number] Family Dependent [id number] BS [place] Commercial [id number] Family Dependent [id number] BS [place] Commercial [id number] Family Dependent [id number] [place] [employer] [id number] Family Dependent [id number] INSURANCE COVID-19 COVID Christy C OVID SELF PAY BLUE CROSS [id number] SPO [id number] [facility] POS [id number] 1 [id number] BS [place] Medigap Part B [id number] Family Dependent [id number] BC[employer] Commercial [id number] Family Dependent [id number] BS [place] Medigap Part B [id number] Family Dependent [id number] BS [place] Medigap Part B [id number] Family Dependent [id number] BS [place] Medigap Part B [id number] Family Dependent [id number] [employer] [id number] Family Dependent [id number] BCBS [place] PPO 302/307 [id number] HU2 [id number] BS [place] Commercial [id number] Self BS [place] [facility] [id number] Family Dependent [id number] BC[employer] Commercial [id number] Family Dependent BC[employer] Commercial [id number] Family Dependent [employer] BCBS Health Maintenance Organization (HMO) [id number] Family Dependent [id number] BS [place] [facility] Part B [id number] Family Dependent [id number] [employer] BCBS B [id number] P VYA [id number] BS [place] [facility] [id number] Family Dependent [id number] BS [place] Medigap Part B [id number] Family Dependent [id number] BCBS [place] PPO 302/307 [id number] HU2 [id number] BCBS [place] PPO 302/307 [id number] SP [id number] EXCELL[employer] BCBS B [id number] O VYS [id number] BS [place] Commercial [id number] Family Dependent BCBS OF [place] [id number] SPO VYS [id number] EXCELLUS BLUE CROSS BLUE SHIELD HEA [id number] SP [id number] Problems, Conditions, and Diagnoses Code Display Name Description Problem Type Effective Dates Data Source(s) E07.9 Disorder of thyroid, unspecified Disorder of thy roid, unspecified Diagnosis 12/20/2020 10:38:00 AM T [facility] R19.7 Diarrhea, unspecified Diarrhea, unspecified Diagnosis 08/04/2020 12:00:00 AM EDT [facility] J90 Pleural effusion, not elsewhere classifi ed Pleural effusion, not elsewhere classified Diagnosis 05/17/2020 07:56:06 AM [facility] J98.11 Atelectasis Atelectasis Diagnosis 05/17/2020 07:56:06 AM [facility] 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 Diagnosis 05/05/2020 12:00:00 AM EST [facility] C55 Malignant neoplasm of uterus, part unspe cified Malignant neoplasm of uterus, part unspecified Diagnosis 04/06/2020 12:00:00 AM EST [facility] Z84.81 Family history of carrier of genetic dis ease Family history of carrier of genetic disease Diagnosis 04/06/2020 12:00:00 AM EST [facility] J43.9 Emphysema, unspecified EMPHYSEMA, UNSPECIFIED Diagnosi s 03/04/2020 09:00:00 AM [facility] 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 GENETIC SUSCEPTIBILITY TO OTHER MALIGNAN Diagnosis 03/04/2020 09:00:00 AM EST [facility] 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 M ALIGNANT NEOPLASM OF DESCENDING COLON Diagnosis 03/04/2020 09:00:00 AM EST [facility] Z12.9 Encounter for screening for malignant ne oplasm, site unspecified Encounter for screening for malignant ne Diagnosis 02/09/2020 08:28:00 AM EST [facility] 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 Genetic susceptibility to other malignan Diagnosis 02/09/2020 08:28:00 AM EST [facility] Z86.010 Personal history of colonic polyps Personal hist ory of colonic polyps Diagnosis 02/09/2020 08:28:00 AM EST [facility] R19.4 Change in bowel habit Change in bowel habit Diagnosis 02/09/2020 08:28:00 AM EST [facility] C18.9 Malignant neoplasm of colon, unspecified Malignant neoplasm of colon, unspecified Diagnosis 02/09/2020 12:00:00 AM EST [facility]ARAJAN Z12.2 Encounter for screening for malignant ne oplasm of respiratory organs Encounter for screening for malignant neoplasm of respiratory organs Diagnosis 02/04/2020 01:19:47 PM EST [facility] R47.02 Disturbance in speech Disturbance in speech Problem 12/01/2020 12:00:00 AM EDT [facility] ([facility], ) R07.0 Sore throat symptom Sore throat symptom Problem 0 12/01/2020 12:00:00 AM EDT [facility] ([facility], ) 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 12/01/2020 12:00:00 AM EDT MEDEN T ([facility], ) [id number] Essential hypertension Essential hypertension Problem 11/30/2020 12:00:00 AM EDT [facility] ([facility]) [id number] Carcinoma of colon Carcinoma of colon Problem 12:00:00 AM EST [facility] ([facility]) 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/2020 12:00: 00 AM EST [facility] ([facility]) Surgeries/Procedures Procedure Description Date Indications Data Source(s) OFFICE OUTPATIENT VISIT 25 MINUTES 02/04/2021 12:00:00 AM EDT [facility] ([facility]) OFFICE OUTPATIENT VISIT 25 MINUTES 12/23/2020 12:00:00 AM EDT [facility] ([facility]) OFFICE OUTPATIENT NEW 45 MINUTES 12/01/2020 12:00:00 A M EDT [facility] ([facility]) OFFICE OUTPATIENT VISIT 15 MINUTES 11/03/2020 12:00:00 AM EDT [facility] ([facility]) OFFICE OUTPATIENT VISIT 25 MINUTES 09/27/2020 12:00:00 AM EDT [facility] ([place] [facility]) OFFICE OUTPATIENT VISIT 15 MINUTES 09/11/2020 12:00:00 AM EDT [facility] ([place] [facility]) OFFICE OUTPATIENT VISIT 25 MINUTES 08/24/2020 12:00:00 AM EDT [facility] ([facility]) OFFICE OUTPATIENT VISIT 25 MINUTES 08/13/2020 12:00:00 AM EDT [facility] ([facility]) OFFICE OUTPATIENT VISIT 25 MINUTES 06/30/2020 12:00:00 AM EDT [facility] ([facility]) OFFICE OUTPATIENT VISIT 25 MINUTES 06/29/2020 12:00:00 AM EDT [facility] ([facility]) Electrocardiogram Interpretation & Report Only 020 12:00:00 AM EST [facility] ([facility]) COLCT TOT ABDL W/O PRCTECT W/ILEOST/ILEOPXTS 0 [...] of [facility]) Results ID Date Data Source [id number] 02/11/2021 11:45:00 AM EST [facility] ([facility]) Name Value Range Interpretation Code Description Data Nadira rce(s) Supporting Document(s) Respiratory Panel Laboratory test result [facility] [facility] This respiratory PCR panel detects Influ toro A H1, H3 and 2009 H1 viruses, Influenza B virus, Resp iratory Syncytial Virus, Human metapneumovirus, Parainfluenza virus 1, 2, 3 and 4, Adenovirus, Rhinovirus/Enterovirus, Coronavirus HKU1, NL63, OC43, 229E and SARS-CoV-2 (COVID 19), Bordetella pertussis, Bordetella parapertussis, Mycoplasma pneumoniae and Chlamydia pneumoniae. NEGATIVE by MULTIPLEXED NUCLEIC ACID PCR SARS-CoV-2 (COVID 19) NEGATIVE - SARS-CoV-2 (COVID19) ID Date Data Source [id number] 02/08/2021 10:33:00 AM EST [facility] Name Value Range Interpretation Code Description Data Nadira rce(s) Supporting Document(s) Magnesium [Moles/volume] in Serum or Plasma 2.0 mg/dL 1.8-2.4 [facility] ([place] [facility]) ID Date Data Source [id number] 02/08/2021 10:33:00 AM EST [facility] Name Value Range Interpretation Code Description Data Nadira rce(s) Supporting Document(s) Glucose, Fasting 90 mg/dL 70-100 [facility] ([facility]) Creatinine For GFR 0.55 mg/dL 0.55-1.30 [facility] ([facility]) Blood Urea Nitrogen 10 mg/dL 7-18 [facility] ([facility]) Glomerular Filtration Rate Laboratory test result [facility] ([facility]) <content>Units are mL/min/1.73 m2</content>
<content></content>
<content>Chronic Kidney Disease Staging per NKF:</content>
<content></content>
<content>Stage I & II GFR >=60 Normal to Mildly Decreased</content>
<content>Stage III GFR 30- 59 Moderately Decreased</content>
<content>Stage IV GFR 15-29 Severely Decreased</content>
<content>Stage V GFR <15 Very Little GFR Left</content>
<content>ESRD GFR <15 on WEDDING COORDINATOR</content>
<content></content> Potassium Serum 4.3 meq/L 3.5-5.1 [facility] ([facility]) Sodium Level 141 meq/L 136-145 [facility] ([facility]) Anion Gap 7 meq/L 8-16 [facility] ([facility]) Chloride Level 106 meq/L 98-107 [facility] ([facility]) Carbon Dioxide Level 28 meq/L 21-32 [facility] ([facility]) Alt/SGPT 23 U/L 12-78 [facility] ([place] [facility]) Calcium Level 9.6 mg/dL 8.5-10.1 [facility] ([facility]) Ast/Sgot 20 U/L 7-37 [facility] ([facility]) Alkaline Phosphatase 163 U/L 45-117 [facility] ([facility]) Total Protein 6.0 GM/DL 6.4-8.2 [facility] ([facility]) Bilirubin,Total 0.4 mg/dL 0.2-1.0 [facility] ([facility]) Albumin/Globulin Ratio 0.9 1.2-2.2 [facility] ([place] [facility]) Albumin 2.9 GM/DL 3.2-5.2 [facility] ([facility]) ID Date Data Source [id number] 02/01/2021 12:04:00 PM EDT [facility] ([facility]) Name Value Range Interpretation Code Description Data Nadira rce(s) Supporting Document(s) Magnesium [Moles/volume] in Serum or Plasma 1.8 mg/dL 1.8-2.4 [facility] ([place] [facility]) Carcinoembryonic Ag [Mass/volume] in Serum or Plasma 4.8 ng/mL [facility] ([facility]) THE CEA ASSAY IS PERFORMED ON THE [employer] BY CHEMILUMINESCENCE AND SHOULD NOT BE COMPARED INTERCHANGEABLY WITH OTHER METHODS. IT SHOULD NOT BE USED ALONE A SCREENING TEST OR DIAGNOSIS FOR THE PRESENCE OR ABSENCE OF MALIGNANT DISEASE. PREDICTIONS OF DISEASE RECURRENCE SHOULD NOT BE BASED SOLELY ON VALUES OBTAINED FROM SERIAL PATIENT SERUM VALUES. ID Date Data Source [id number] 02/01/2021 12:04:00 PM EDT [facility] ([facility]) Name Value Range Interpretation Code Description Data Nadira rce(s) Supporting Document(s) Blood Urea Nitrogen 6 mg/dL 7-18 [facility] ([facility]) Glucose, Fasting 88 mg/dL 70-100 [facility] ([facility]) Creatinine For GFR 0.39 mg/dL 0.55-1.30 [facility] ([facility]) Sodium Level 140 meq/L 136-145 [facility] ([facility]) Glomerular Filtration Rate Laboratory test result [facility] ([facility]) <content>Units are mL/min/1.73 m2</content>
<content></content>
<content>Chronic Kidney Disease Staging per NKF:</content>
<content></content>
<content>Stage I & II GFR >=60 Normal to Mildly Decreased</content>
<content>Stage III GFR 30- 59 Moderately Decreased</content>
<content>Stage IV GFR 15-29 Severely Decreased</content>
<content>Stage V GFR <15 Very Little GFR Left</content>
<content>ESRD GFR <15 on WEDDING COORDINATOR</content>
<content></content> Potassium Serum 4.4 meq/L 3.5-5.1 [facility] ([facility]) Chloride Level 107 meq/L 98-107 [facility] ([facility]) Carbon Dioxide Level 31 meq/L 21-32 [facility] ([facility]) Anion Gap 2 meq/L 8-16 [facility] ([place] [facility]) Calcium Level 9.5 mg/dL 8.5-10.1 [facility] ([facility]) Alkaline Phosphatase 177 U/L 45-117 [facility] ([facility]) Alt/SGPT 29 U/L 12-78 [facility] ([place] [facility]) Ast/Sgot 33 U/L 7-37 [facility] ([place] [facility]) Bilirubin,Total 0.6 mg/dL 0.2-1.0 [facility] ([facility]) Total Protein 5.9 GM/DL 6.4-8.2 [facility] ([facility]) Albumin 2.8 GM/DL 3.2-5.2 [facility] ([place] [facility]) Albumin/Globulin Ratio 0.9 1.2-2.2 [facility] ([facility]) ID Date Data Source [id number] 02/01/2021 12:04:00 PM EDT [facility] ([facility]) Name Value Range Interpretation Code Description Data Nadira rce(s) Supporting Document(s) Red Blood Count 4.04 10 4.00-5.40 [facility] ([facility]) White Blood Count 4.9 10 4.0-10.0 [facility] ([facility]) Hemoglobin 12.8 g/dL 12.0-15.5 [facility] ([place] [facility]) Hematocrit 40.5 % 36.0-47.0 [facility] ([place] [facility]) Mean Corpuscular Volume 100.2 fl 80.0-96.0 [facility] ([facility]) Mean Corpuscular HGB Conc 31.6 g/dL 32.0-36.5 MEDE NT ([facility]) Mean Corpuscular Hemoglobin 31.7 pg 27.0-33.0 [facility] ([facility]) Red Cell Distribution Width 14.1 % 11.5-14.5 [facility] ([facility]) Platelet Count, Automated 198 10 150-450 MEDE NT ([facility]) Neutrophils % 71.6 % 36.0-66.0 [facility] ([facility]) Mcclain % 11.4 % 2.0-8.0 [facility] ([place] [facility]) Eos % 0.8 % 0.0-3.0 [facility] ([place] [facility]) Lymph % 15.0 % 24.0-44.0 [facility] [facility] Immature Granulocyte % 0.4 % 0-3.0 [facility] ([facility]) Nucleated Red Blood Cell % 0.0 % 0-0 MED ENT ([facility]) Baso % 0.8 % 0.0-1.0 [facility] [facility] Lymph # 0.7 10 1.5-5.0 [facility] [facility] Neutrophils # 3.5 10 1.5-8.5 [facility] ([facility]) Eos # 0.0 10 0.0-0.5 [facility] [facility] Baso # 0.0 10 0.0-0.2 [facility] [facility] Mcclain # 0.6 10 0.0-0.8 [facility] ([place] [facility]) ID Date Data Source [id number] 01/25/2021 11:44:00 AM EDT [facility] ([facility]) Name Value Range Interpretation Code Description Data Nadira rce(s) Supporting Document(s) Glucose, Fasting 95 mg/dL 70-100 [facility] ([facility]) Creatinine For GFR 0.46 mg/dL 0.55-1.30 [facility] ([facility]) Glomerular Filtration Rate Laboratory test result [facility] ([facility]) <content>Units are mL/min/1.73 m2</content>
<content></content>
<content>Chronic Kidney Disease Staging per NKF:</content>
<content></content>
<content>Stage I & II GFR >=60 Normal to Mildly Decreased</content>
<content>Stage III GFR 30- 59 Moderately Decreased</content>
<content>Stage IV GFR 15-29 Severely Decreased</content>
<content>Stage V GFR <15 Very Little GFR Left</content>
<content>ESRD GFR <15 on WEDDING COORDINATOR</content>
<content></content> Blood Urea Nitrogen 5 mg/dL 7-18 [facility] ([facility]) Sodium Level 142 meq/L 136-145 [facility] ([facility]) Carbon Dioxide Level 30 meq/L 21-32 [facility] ([facility]) Potassium Serum 4.5 meq/L 3.5-5.1 [facility] ([facility]) Chloride Level 107 meq/L 98-107 [facility] ([facility]) Ast/Sgot 45 U/L 7-37 [facility] ([place] [facility]) Calcium Level 9.1 mg/dL 8.5-10.1 [facility] ([facility]) Anion Gap 5 meq/L 8-16 [facility] ([place] [facility]) Alt/SGPT 30 U/L 12-78 [facility] ([place] [facility]) Alkaline Phosphatase 162 U/L 45-117 [facility] ([facility]) Total Protein 5.6 GM/DL 6.4-8.2 [facility] ([facility]) Bilirubin,Total 0.5 mg/dL 0.2-1.0 [facility] ([facility]) Albumin 2.4 GM/DL 3.2-5.2 [facility] ([place] [facility]) Albumin/Globulin Ratio 0.8 1.2-2.2 [facility] ([facility]) ID Date Data Source [id number] 01/25/2021 11:44:00 AM EDT [facility] ([facility]) Name Value Range Interpretation Code Description Data Nadira rce(s) Supporting Document(s) White Blood Count 3.4 10 4.0-10.0 [facility] ([facility]) Red Blood Count 3.94 10 4.00-5.40 [facility] ([facility]) Hemoglobin 12.8 g/dL 12.0-15.5 [facility] [facility] Mean Corpuscular Volume 101.5 fl 80.0-96.0 [facility] Mean Corpuscular Hemoglobin 32.5 pg 27.0-33.0 [facility] ([facility]) Hematocrit 40.0 % 36.0-47.0 [facility] [facility] Red Cell Distribution Width 14.2 % 11.5-14.5 [facility] ([facility]) Mean Corpuscular HGB Conc 32.0 g/dL 32.0-36.5 MED[facility] NT ([facility]) Platelet Count, Automated 179 10 150-450 [facility] NT ([facility]) Mcclain % 14.8 % 2.0-8.0 [facility] ([place] [facility]) Neutrophils % 59.9 % 36.0-66.0 [facility] ([facility]) Lymph % 21.4 % 24.0-44.0 [facility] ([place] [facility]) Eos % 2.1 % 0.0-3.0 [facility] ([place] [facility]) Immature Granulocyte % 0.3 % 0-3.0 [facility] ([facility]) Baso % 1.5 % 0.0-1.0 [facility] ([place] [facility]) Nucleated Red Blood Cell % 0.0 % 0-0 [facility] ([facility]) Neutrophils # 2.0 10 1.5-8.5 [facility] ([facility]) Lymph # 0.7 10 1.5-5.0 [facility] ([place] [facility]) Eos # 0.1 10 0.0-0.5 [facility] ([place] [facility]) Mcclain # 0.5 10 0.0-0.8 [facility] ([place] [facility]) Baso # 0.1 10 0.0-0.2 [facility] ([place] [facility]) ID Date Data Source [id number] 01/18/2021 10:39:00 AM EDT [facility] ([facility]) Name Value Range Interpretation Code Description Data Nadira rce(s) Supporting Document(s) Magnesium [Moles/volume] in Serum or Plasma 1.7 mg/dL 1.8-2.4 [facility] ([place] [facility]) ID Date Data Source [id number] 01/18/2021 10:39:00 AM EDT [facility] ([facility]) Name Value Range Interpretation Code Description Data Nadira rce(s) Supporting Document(s) Glucose, Fasting 108 mg/dL 70-100 [facility] ([facility]) Creatinine For GFR 0.62 mg/dL 0.55-1.30 [facility] ([facility]) Glomerular Filtration Rate Laboratory test result [facility] ([facility]) <content>Units are mL/min/1.73 m2</content>
<content></content>
<content>Chronic Kidney Disease Staging per NKF:</content>
<content></content>
<content>Stage I & II GFR >=60 Normal to Mildly Decreased</content>
<content>Stage III GFR 30- 59 Moderately Decreased</content>
<content>Stage IV GFR 15-29 Severely Decreased</content>
<content>Stage V GFR <15 Very Little GFR Left</content>
<content>ESRD GFR <15 on WEDDING COORDINATOR</content>
<content></content> Blood Urea Nitrogen 4 mg/dL 7-18 [facility] ([facility]) Potassium Serum 4.4 meq/L 3.5-5.1 [facility] ([facility]) Sodium Level 140 meq/L 136-145 [facility] ([facility]) Anion Gap 4 meq/L 8-16 [facility] ([place] [facility]) Carbon Dioxide Level 31 meq/L 21-32 [facility] ([facility]) Chloride Level 105 meq/L 98-107 [facility] ([facility]) Alt/SGPT 24 U/L 12-78 [facility] ([place] [facility]) Ast/Sgot 40 U/L 7-37 [facility] ([place] [facility]) Calcium Level 8.7 mg/dL 8.5-10.1 [facility] ([facility]) Total Protein 5.8 GM/DL 6.4-8.2 [facility] ([facility]) Alkaline Phosphatase 158 U/L 45-117 [facility] ([facility]) Bilirubin,Total 0.6 mg/dL 0.2-1.0 [facility] ([facility]) Albumin 2.4 GM/DL 3.2-5.2 [facility] ([place] [facility]) Albumin/Globulin Ratio 0.7 1.2-2.2 [facility] ([facility]) ID Date Data Source [id number] 01/18/2021 10:38:00 AM EDT [facility] ([facility]) Name Value Range Interpretation Code Description Data Nadira rce(s) Supporting Document(s) White Blood Count 4.6 10 4.0-10.0 [facility] ([facility]) Hemoglobin 13.0 g/dL 12.0-15.5 [facility] ([facility]) Red Blood Count 4.02 10 4.00-5.40 [facility] ([facility]) Hematocrit 41.1 % 36.0-47.0 [facility] ([place] [facility]) Mean Corpuscular HGB Conc 31.6 g/dL 32.0-36.5 [facility] NT ([facility]) Mean Corpuscular Volume 102.2 fl 80.0-96.0 [facility] ([facility]) Mean Corpuscular Hemoglobin 32.3 pg 27.0-33.0 [facility] ([facility]) Red Cell Distribution Width 14.6 % 11.5-14.5 [facility] ([facility]) Platelet Count, Automated 161 10 150-450 [facility] NT ([facility]) Neutrophils % 65.3 % 36.0-66.0 [facility] ([facility]) Lymph % 18.9 % 24.0-44.0 [facility] [facility]) Eos % 1.3 % 0.0-3.0 [facility] [facility]) Mcclain % 13.2 % 2.0-8.0 [facility] ([place] [facility]) Baso % 1.1 % 0.0-1.0 [facility] [facility] Immature Granulocyte % 0.2 % 0-3.0 [facility] ([facility]) Nucleated Red Blood Cell % 0.0 % 0-0 [facility] ([facility]) Neutrophils # 3.0 10 1.5-8.5 [facility] ([facility]) Lymph # 0.9 10 1.5-5.0 [facility] [facility]) Mcclain # 0.6 10 0.0-0.8 [facility] ([place] [facility]) Eos # 0.1 10 0.0-0.5 [facility] [facility] Baso # 0.1 10 0.0-0.2 [facility] [facility] ID Date Data Source [id number] 01/11/2021 11:23:00 AM EDT [facility] ([facility]) Name Value Range Interpretation Code Description Data Nadira rce(s) Supporting Document(s) Magnesium [Moles/volume] in Serum or Plasma 1.6 mg/dL 1.8-2.4 [facility] ([facility]) ID Date Data Source [id number] 01/11/2021 11:23:00 AM EDT [facility] ([facility]) Name Value Range Interpretation Code Description Data Nadira rce(s) Supporting Document(s) Blood Urea Nitrogen 3 mg/dL 7-18 [facility] ([facility]) Glucose, Fasting 108 mg/dL 70-100 [facility] ([facility]) Creatinine For GFR 0.46 mg/dL 0.55-1.30 [facility] ([facility]) Glomerular Filtration Rate Laboratory test result [facility] ([facility]) <content>Units are mL/min/1.73 m2</content>
<content></content>
<content>Chronic Kidney Disease Staging per NKF:</content>
<content></content>
<content>Stage I & II GFR >=60 Normal to Mildly Decreased</content>
<content>Stage III GFR 30- 59 Moderately Decreased</content>
<content>Stage IV GFR 15-29 Severely Decreased</content>
<content>Stage V GFR <15 Very Little GFR Left</content>
<content>ESRD GFR <15 on WEDDING COORDINATOR</content>
<content></content> Sodium Level 142 meq/L 136-145 [facility] ([facility]) Potassium Serum 3.3 meq/L 3.5-5.1 [facility] ([facility]) Chloride Level 106 meq/L 98-107 [facility] ([facility]) Carbon Dioxide Level 33 meq/L 21-32 [facility] ([facility]) Ast/Sgot 30 U/L 7-37 [facility] [facility]) Anion Gap 3 meq/L 8-16 [facility] [facility]) Calcium Level 8.9 mg/dL 8.5-10.1 [facility] ([facility]) Bilirubin,Total 0.8 mg/dL 0.2-1.0 [facility] ([facility]) Alt/SGPT 19 U/L 12-78 [facility] [facility]) Alkaline Phosphatase 130 U/L 45-117 [facility] Total Protein 5.4 GM/DL 6.4-8.2 [facility] ([facility]) Albumin 2.2 GM/DL 3.2-5.2 [facility] ([facility]) Albumin/Globulin Ratio 0.7 1.2-2.2 [facility] ([facility]) ID Date Data Source [id number] 01/11/2021 11:23:00 AM EDT [facility] ([facility]) Name Value Range Interpretation Code Description Data Nadira rce(s) Supporting Document(s) Red Blood Count 4.16 10 4.00-5.40 [facility] ([facility]) White Blood Count 4.0 10 4.0-10.0 [facility] ([facility]) Mean Corpuscular Volume 102.9 fl 80.0-96.0 [facility] Hemoglobin 13.5 g/dL 12.0-15.5 [facility] Hematocrit 42.8 % 36.0-47.0 [facility] ([facility]) Mean Corpuscular HGB Conc 31.5 g/dL 32.0-36.5 MEDE NT ([facility]) Mean Corpuscular Hemoglobin 32.5 pg 27.0-33.0 [facility] D[facility] ([facility]) Platelet Count, Automated 140 10 150-450 MEDE NT ([facility]) Red Cell Distribution Width 14.8 % 11.5-14.5 ME DENT ([facility]) Neutrophils % 62.9 % 36.0-66.0 [facility] ([facility]) Lymph % 20.8 % 24.0-44.0 [facility] [facility]) Mcclain % 13.9 % 2.0-8.0 [facility] ([place] [facility]) Eos % 1.5 % 0.0-3.0 [facility] [facility] Baso % 0.7 % 0.0-1.0 [facility] ([place] [facility]) Neutrophils # 2.5 10 1.5-8.5 [facility] ([facility]) Nucleated Red Blood Cell % 0.0 % 0-0 MED ENT ([facility]) Immature Granulocyte % 0.2 % 0-3.0 [facility] ([facility]) Lymph # 0.8 10 1.5-5.0 [facility] ([place] [facility]) Eos # 0.1 10 0.0-0.5 [facility] ([place] [facility]) Mcclain # 0.6 10 0.0-0.8 [facility] ([place] [facility]) Baso # 0.0 10 0.0-0.2 [facility] ([place] [facility]) ID Date Data Source [id number] 01/04/2021 04:01:00 PM EDT [facility] ([facility]) Name Value Range Interpretation Code Description Data Nadira rce(s) Supporting Document(s) Cancer Ag 125 [Units/volume] in Serum or Plasma 145.7 U/ML [facility] THE CA 125 ASSAY IS PERFORMED ON THE [facility] BY CHEMILUMINESCENCE AND SHOULD NOT BE COMPARED INTERCHANGEABLY WITH OTHER METHODS. IT SHOULD NOT BE USED ALONE A SCREENING TEST OR DIAGNOSIS FOR THE PRESENCE OR ABSENCE OF MALIGNANT DISEASE. PREDICTIONS OF DISEASE RECURRENCE SHOULD NOT BE BASED SOLELY ON VALUES OBTAINED FROM SERIAL PATIENT SERUM VALUES. Magnesium [Moles/volume] in Serum or Plasma 1.6 mg/dL 1.8-2.4 [facility] ([facility]) Carcinoembryonic Ag [Mass/volume] in Serum or Plasma 5.2 ng/mL [facility] ([facility]) THE CEA ASSAY IS PERFORMED ON THE [employer] BY CHEMILUMINESCENCE AND SHOULD NOT BE COMPARED INTERCHANGEABLY WITH OTHER METHODS. IT SHOULD NOT BE USED ALONE A SCREENING TEST OR DIAGNOSIS FOR THE PRESENCE OR ABSENCE OF MALIGNANT DISEASE. PREDICTIONS OF DISEASE RECURRENCE SHOULD NOT BE BASED SOLELY ON VALUES OBTAINED FROM SERIAL PATIENT SERUM VALUES. ID Date Data Source [id number] 01/04/2021 04:01:00 PM EDT [facility] ([facility]) Name Value Range Interpretation Code Description Data Nadira rce(s) Supporting Document(s) Blood Urea Nitrogen 4 mg/dL 7-18 [facility] ([facility]) Glucose, Fasting 98 mg/dL 70-100 [facility] ([facility]) Glomerular Filtration Rate Laboratory test result [facility] ([facility]) <content>Units are mL/min/1.73 m2</content>
<content></content>
<content>Chronic Kidney Disease Staging per NKF:</content>
<content></content>
<content>Stage I & II GFR >=60 Normal to Mildly Decreased</content>
<content>Stage III GFR 30- 59 Moderately Decreased</content>
<content>Stage IV GFR 15-29 Severely Decreased</content>
<content>Stage V GFR <15 Very Little GFR Left</content>
<content>ESRD GFR <15 on WEDDING COORDINATOR</content>
<content></content> Creatinine For GFR 0.46 mg/dL 0.55-1.30 [facility] ([facility]) Sodium Level 139 meq/L 136-145 [facility] ([facility]) Potassium Serum 4.0 meq/L 3.5-5.1 [facility] ([facility]) Chloride Level 102 meq/L 98-107 [facility] ([facility]) Carbon Dioxide Level 32 meq/L 21-32 [facility] ([facility]) Anion Gap 5 meq/L 8-16 [facility] [facility]) Ast/Sgot 28 U/L 7-37 [facility] ([place] [facility]) Calcium Level 9.6 mg/dL 8.5-10.1 [facility] ([facility]) Alt/SGPT 20 U/L 12-78 [facility] [facility]) Bilirubin,Total 0.8 mg/dL 0.2-1.0 [facility] ([facility]) Total Protein 5.7 GM/DL 6.4-8.2 [facility] ([facility]) Alkaline Phosphatase 148 U/L 45-117 [facility] ([facility]) Albumin 2.7 GM/DL 3.2-5.2 [facility] ([place] [facility]) Albumin/Globulin Ratio 0.9 1.2-2.2 [facility] ([facility]) ID Date Data Source [id number] 01/04/2021 04:01:00 PM EDT [facility] ([facility]) Name Value Range Interpretation Code Description Data Nadira rce(s) Supporting Document(s) Red Blood Count 4.19 10 4.00-5.40 [facility] ([facility]) White Blood Count 5.2 10 4.0-10.0 [facility] ([facility]) Hemoglobin 13.9 g/dL 12.0-15.5 [facility] [facility]) Hematocrit 42.6 % 36.0-47.0 [facility] [facility]) Mean Corpuscular Hemoglobin 33.2 pg 27.0-33.0 MT DENT ([facility]) Mean Corpuscular HGB Conc 32.6 g/dL 32.0-36.5 MEDE NT ([facility]) Mean Corpuscular Volume 101.7 fl 80.0-96.0 [facility] ([facility]) Platelet Count, Automated 152 10 150-450 [facility] NT ([facility]) Red Cell Distribution Width 15.5 % 11.5-14.5 [facility] ([facility]) Neutrophils % 66.1 % 36.0-66.0 [facility] ([facility]) Eos % 0.2 % 0.0-3.0 [facility] [facility] Lymph % 20.8 % 24.0-44.0 [facility]) Mcclain % 11.9 % 2.0-8.0 [facility]) Immature Granulocyte % 0.4 % 0-3.0 [facility] ([facility]) Nucleated Red Blood Cell % 0.0 % 0-0 MED ENT ([facility]) Baso % 0.6 % 0.0-1.0 [facility]) Lymph # 1.1 10 1.5-5.0 [facility]) Mcclain # 0.6 10 0.0-0.8 [facility]) Neutrophils # 3.5 10 1.5-8.5 [facility]) Baso # 0.0 10 0.0-0.2 [facility]) Eos # 0.0 10 0.0-0.5 [facility]) ID Date Data Source [id number] 12/22/2020 10:15:00 AM EDT [facility] Name Value Range Interpretation Code Description Data Nadira rce(s) Supporting Document(s) EGD [facility] SZFGHz7iMrBHKiIuEQZePyxVRIwaTYbvLLJnY9W0IDmoVt5EXKvbsxSkUPGhYw3+HVEcJB0glg4tWIYy gMy [file] R8+iBL9n2aGfot/iHMUjnS5gcZll3M4/vKVzin [file] [employer] Le[employer]ester+IlrR9JPoFrbIHaD7iaela+JPPNrnWB8ehjy4fbiBHgmONffjdHqgfQmRqUSt1cS9WcDg/5o2GufoV [file] Jeremías/3NdKeaVObDp2koNgSbL375g554mJFqnldBnmfVZi9kHgLYIiO2Fw5Tz+yGvgzvlC6EZa7KJvFSvw 2cwFILzI/+1aqcQC/JJZLu3CY61Xhzdcr4tCMhWrl6 Xr7XhJBbWQqxBVnkWlE0Xs354V2b9f4NsSe9GftAJrpIJoTaqa4scG+Hzp0I9O+MlXwm5dnXPIC8/uVK 5sLVTY2Ho2/aetyyBUHExLuX/SFf66CD7V21Tt1uEVvIUitecG1+0SkS02uabivhwpxy/ehpZqZ36cbN ss1MSQGDsnqQEpwgxHo2j1rtlOyb5b3GhD7TkRU2ap 1eOG7BjDtE/iM0/irUaWPItasoAn2uptul0at/6hg+km2moK7PLQyHQXhDqNBrS62c0Gtxs7JuM3qAJ/ 3PvXfY4luqoFla2gPLwcWoMH4UxVlZ9mLLoy61apQ0CZ06X/MvTeC0mxmL0zFFUV3pkeQovo/Ppr2a5Z /eXsp8mWATX2vQcfWmXMVlG59/6o0kXxCgQPK55rwu uJZa6KrZlwN1/Fqx8zhTqdIV2Ei4Xp+NUqtXuL0Ow/PuwxYcyFhVZSze7tuTd7atEyKgwMJUdjweP7az VF6oD7puAwuU7yVrVMs06UwOuHRcos0AqD/CggQgsxdZ0y6rqoD9XP4LtPvzJBVFvJl+GzAmV61KfRDD 66fWEnJECa7ihXZf5yQ+QbT6vOLBgfVB8ICfvJ2LCN +jDcgW4s6D1vWlBbg7Loc4kM5XFDAuM4GxPK3hlLf6W9lhDvKy1VroJ4adPd+83+sRfZKAuwB+King+9U7 [file] g95vzC4AJ8kPWQbXjZjH0Tmfmu8rXWRAITWoYbsSC0DSPzHmSpNd+VPs2UqmJ9owm0uAXRskT79M3+eulogio L/kiln burner//vohyuWnC4Ym7SfT8LfM8iV7l+FiIxrKg7EE [file] ZFspekBwZS8Pi0S2Jc/j0fH+JUfqDz8rOJES8zpG/EULOGIO+s24rSTUu7LcvWZ1hk0/1Lu2AEE1JmANI9nGm mG6wMv9g3QxuUXVjLfQe8m2dpERV8itZ5nmjlNS8g8 zHG0iF9nfjF8Ztg3/rZ2+zfG0hb8CBlt6qAUgnGBNo25rXFzN8146QZ5g0BHK5r+fmrKNx1vcSXhfIWB WF39D8K5lesxpsQGkW3zTafXqxGsq3ow+bEvlbQx/jcLIcCJQpNTJ+kZ+hvoPvEaWVGj6eKQQrjDSCOs Na/TNsYphpSf0idgxgICV7GXcFQkUzmIIV7kpYRLzy s5yg5XDb0hwlrY1/DXA7NZO1cjUMkm4gJc10ITZFhSo80S03EkdKfECV3rmwi6nd4f6pBpzvsXOjaWCL R51hQvw56iGGgsQQCcR5QB/y4M+EszFTKm864AIdYF7cOcxFPMOyBVJbknfhD4Irp1FoJgTViIiQNtRq sJFelQs//yPfaSz6MuOCh2cuZ8DdDvA/TWBtf0WEPt oNjI7GP0TDU0ke5/Yy+YmtWur1jZFV43TPTHOx5d4GVG9/gyt7LE6OBIz/GZZBgefIOlG8Ms3bIrhbDr [employer] MAINTAINER/i8h0PQvty8rztRpE/AofBFfyG4MtqTc/IVCRxMQ3cxy2aDvpm4NPOfXI6wpL50hjkn+KXKGmiMFO [file] vKTFhVahZHF7dBsB0APO6sw6GnVQTfODqvmlCbZspEPSppnZVzcXmlRLCSYxAqJjI6UG1QKXSRR1G= ID Date Data Source [id number] 12/21/2020 04:13:00 PM T [facility] CYTOPATHOLOGY REPORTName: JIMMY PUENTESMRN: [id number] Number: [id number] Date: 12/20/2020 00:00Received Date: 12/20/2020 11:26Physician(s): MACHO QUINTANILLA MD HAGHIR, SHAHANDEH F, MD Specimen(s) ReceivedA: THYROID NODULE, RIGHT, FINE NEEDLE ASPIRATION, CONSULTATION (12/15/2020)[id number]: THYROID NODULE, RIGHT, FINE NEEDLE ASPIRATION, CONSULTATION ([id number],SMEAR; [id number], CELL BLOCK) 12/01/2020linical History:60 year old with [...] THYROID NODULE, RIGHT, FINE NEEDLE ASPIRATION, CONSULTATION (12/15/2020)[id number]: ACUTE INFLAMMATION AND NECROTIC DEBRIS IDENTIFIED (SEEMICROSCOPIC DESCRIPTION)B. THYROID NODULE, RIGHT, FINE NEEDLE ASPIRATION, CONSULTATION ([id number],SMEAR; [id number], CELL BLOCK) 12/01/2020: ACUTE INFLAMMATION AND NECROTICDEBRIS IDENTIFIED. Comment/cts/calReviewing [employer]otech: JOHN Licona(ASCP) (IAC)Davida Horne MDElectronically Signed By Jana Bermudez M.D. 12/21/2020 16:13:09The attending pathologist named above attests that he/she has personallyreviewed the relevant preparation(s) for the specimen(s) and rendered thefinal diagnosis. Microscopic DescriptionThinPrep smear of right thyroid nodule FNA, [id number], 12/15/20, showsscattered macrophages in a background of inspissated colloid,microcalcifications, abundant neutrophils and necrotic debris, which maybe a component of tumor or infectious process. No malignant tumor cellsare identified in this specimen. /ctsThinPrep smear, [id number], 12/01/20 and corresponding cell block, [id number],of right thyroid nodule FNA shows abundant neutrophils, few macrophages,and necrotic debris which may be a component of necrotic tumor orinfectious process. No thyroid elements or maliganant tumor cells areidentified in this specimen. /cts/mari Gross DescriptionReceived 3 slides and 1 paraffin block, 1 slide which is labeled"[id number], Jose Puentes" and 1 labeled "[id number] Jose Puentes,and 1 labeled [id number] Jose Puentes" the paraffin block is labeled"35 Dhaval Garcia" with corresponding pathology reports for [facility], Department of Laboratories, [address] [place] [id number]. . .This report may include one or more immunohistochemical stain results thatuse analyte specific reagents. All positi ve and negative controls havebeen reviewed by the attending pathologist and are satisfactory. The testswere developed and their performance characteristics determined by [facility] Pathololgy department. They have not been cleared or approved by [place] Food and Drug Administration. The FDA has determined that suchclearance or approval is not necessary. Name Value Range Interpretation Code Description Data Nadira rce(s) Supporting Document(s) ID Date Data Source [id number] 12/15/2020 03:16:00 PM EDT [facility] ([facility], ) Name Value Range Interpretation Code Description Data Nadira rce(s) Supporting Document(s) Microscopic observation [Identifier] in Unspecified specimen by Non- gynecological cytology method Laboratory test result [facility] ([facility]) SPECIMEN: FNA of right thyroi d mass [...] cell block of FNA were sent to [facility] for consultation, they agree with the above findings. See consultation report [id number], scanned in EMR pathology module. 12/22/2020 - [address] (ASCP) 12/16/2020 0839 (Prelim) Signed Macho Quintanilla MD 12/22/2020 0753 ID Date Data Source [id number] 12/19/2020 02:01:00 AM EDT [facility] [place] [facility] Name Value Range Interpretation Code Description Data [facility] rce(s) Supporting Document(s) CALPROTECTIN FECAL 271 [address] Laboratory [place] [facility] Reference range: <=49Unit: ug/g REFERENC E INTERVAL: Calprotectin, Fecal by Immunoassay Less than 50 ug/g.........Normal 50-120 ug/g...............Borderline elevated, test should be re-evaluated in 4-6 weeks. 121 ug/g or greater.......Elevated Performed by [employer], [address] [place] [id number] [email or web address], Terrance Guerrero MD, Lab. Director ID Date Data Source [id number] 12/13/2020 02:55:29 PM EDT [facility] [place] [facility] SPECIMEN DESCRIPTION STOOLSPECIAL REQUESTS NONERESULT NEGATIVE FOR [...] rce(s) Supporting Document(s) SPECIMEN DESCRIPTION Laborator y [place] of [facility] C DIFF TOXIN B (NEG) Laboratory [place] [facility] of [facility] 027 NAP1 B1 (NEG) Laboratory [place] of [facility] COMMENT Laboratory [place] of [facility] IS CLINICALLY INDICATED, PLEASE CONTA CT THE MICROBIOLOGY LABORATORY ([phone]) WITHIN 3 DAYS OF THIS REPORT. ID Date Data Source [id number] 12/14/2020 02:32:47 PM EDT [facility] [place] [facility] SPECIMEN DESCRIPTION STOOLSPECIAL REQUESTS NONERESULT NEGATIVE FOR [...] rce(s) Supporting Document(s) ID Date Data Source [id number] 12/01/2020 01:27:00 PM EDT [facility] ([facility], ) Name Value Range Interpretation Code Description Data Nadira rce(s) Supporting Document(s) Surgical pathology study Laboratory test result [facility] ([facility]) FINAL DIAGNOSIS Thyroid nodule, cell block: Mixed inflammatory cells. No epithelial cells identified for evaluation of carcinoma. See comment. COMMENT: There is no evidence for malignancy in this specimen. If clinically indicated and concern for malignancy persists, a re-biopsy is recommended. 12/03/20201458 CLINICAL DIAGNOSIS Right thyroid nodule 12/02/20201229 GROSS DIAGNOSIS Received in CytoLyt labeled "right thyroid nodule biopsy" for cell block. -SVY 12/02/20201229 Signed LIANNA KIRBY MD 12/03/2020 1459 ID Date Data Source [id number] 12/01/2020 01:15:00 PM EDT [facility]) Name Value Range Interpretation Code Description Data Nadira rce(s) Supporting Document(s) Microscopic observation [Identifier] in Unspecified specimen by Non- gynecological cytology method Laboratory test result [facility] ([facility]) SPECIMEN: FNA of right thyroi d nodule Specimen received in cytolyt-red SPECIMEN ADEQUACY: Unsatisfactory for evaluation CATEGORIZATION: DESCRIPTIONS: No follicular component in a background of abundant neutrophils, macrophages, and debris. COMMENTS: 12/02/2020810 Signed PENELOPE PATE (ASCP) 12/02/2020810 (Prelim) Signed LIANNA KIRBY MD 12/03/2020 145 ID Date Data Source [id number] 11/30/2020 06:42:00 PM EDT [facility] Name Value Range Interpretation Code Description Data Nadira rce(s) Supporting Document(s) Laboratory test finding (navigational concept) 106 mg/dL 70-105 [facility] ([facility]) Laboratory test finding (navigational concept) 46.0 % 38.0-51.0 [facility] ([facility]) Laboratory test finding (navigational concept) 3.0 meq/L 3.5-5.1 [facility] ([facility]) Laboratory test finding (navigational concept) 136 meq/L 136-145 [facility] ([facility]) Laboratory test finding (navigational concept) 92 meq/L 98-109 [facility] ([facility]) Laboratory test finding (navigational concept) 30.0 MM/L 23.0-27.0 [facility] ([facility]) Laboratory test finding (navigational concept) 4.6 mg/dL 4.5-5.3 [facility] ([facility]) Laboratory test finding (navigational concept) 0.4 mg/dL 0.6-1.3 [facility] ([facility]) Laboratory test finding (navigational concept) 4 mg/dL 8-26 [facility] ([facility]) ID Date Data Source [id number] 11/30/2020 06:38:00 PM EDT [facility] Name Value Range Interpretation Code Description Data Nadira rce(s) Supporting Document(s) CPK Creatine Phosphokinase 18 U/L 26-192 [facility] ([facility]) CK-MB Value Mass Laboratory test result [facility] [facility]) MB/CK Relative Index 5.56 [facility] ([facility]) <content>DIAGNOSIS CRITERIA</content>
<content>MMB ng/ml Relative Index (RI)</content>
<content>NON-AMI < or = 5 N/A</content>
<content>WILBURN ZONE > 5 < or = 4</content>
<content>AMI > 5 > 4</content>
<content></content> Troponin I Laboratory test result [facility] [facility]) <content>Troponin I Reference Interval f or Siemens [place] LOCI:</content>
<content></content>
<content>99th Percentile= 0.00-0.045 ng/ml</content>
<content></content>
<content>Risk Stratification:</content>
<content><= 0.10 ng/ml Decreased Risk for Adverse Clinical</content>
<content>Events.</content>
<content>0.10-1.50 ng/ml Increased Risk for Adverse Clinical</content>
<content>Events. Evaluation of additional</content>
<content>criterion and/or repeat testing in 2-6</content>
<content>hours is suggested to rule out myocardial</content>
<content>damage.</content>
<content>>= 1.50 ng/ml Indicative of Myocardial Injury.</content>
<content></content> ID Date Data Source [id number] 11/30/2020 06:38:00 PM EDT [facility] ([facility]) Name Value Range Interpretation Code Description Data Nadira rce(s) Supporting Document(s) Ast/Sgot 19 U/L 7-37 [facility] [facility]) Alt/SGPT 22 U/L 12-78 [facility] [facility]) Alkaline Phosphatase 218 U/L 45-117 [facility] ([facility]) Bilirubin,Direct 0.5 mg/dL 0.0-0.2 [facility] ([facility]) Total Protein 6.3 GM/DL 6.4-8.2 [facility] ([facility]) Bilirubin,Total 1.2 mg/dL 0.2-1.0 [facility] ([facility]) Albumin 2.9 GM/DL 3.2-5.2 [facility] [facility] Albumin/Globulin Ratio 0.9 1.2-2.2 [facility] ([facility]) ID Date Data Source [id number] 11/30/2020 06:38:00 PM EDT [facility] ([facility]) Name Value Range Interpretation Code Description Data Nadira rce(s) Supporting Document(s) Lipoprotein lipase [Enzymatic activity/volume] in Serum or Plasm a 47 U/L 73-393 [facility] ([facility]) ID Date Data Source [id number] 11/30/2020 05:37:00 PM EDT [facility] ([facility]) Name Value Range Interpretation Code Description Data Nadira rce(s) Supporting Document(s) White Blood Count 15.2 10 4.0-10.0 [facility] ([facility]) Red Blood Count 4.27 10 4.00-5.40 [facility] ([facility]) Hemoglobin 13.8 g/dL 12.0-15.5 [facility] [facility] Hematocrit 42.7 % 36.0-47.0 [facility] [facility] Mean Corpuscular Volume 100.0 fl 80.0-96.0 [facility] ([facility]) Mean Corpuscular Hemoglobin 32.3 pg 27.0-33.0 ME [facility]ENT ([facility]) Mean Corpuscular HGB Conc 32.3 g/dL 32.0-36.5 [facility] NT ([facility]) Neutrophils % 80.6 % 36.0-66.0 [facility] [facility]) Red Cell Distribution Width 18.0 % 11.5-14.5 ME [facility] ([facility]) Platelet Count, Automated 117 10 150-450 [facility] NT ([facility]) Lymph % 7.3 % 24.0-44.0 [facility] [facility]) [place]clain % 8.2 % 2.0-8.0 [facility] [facility] Baso % 0.5 % 0.0-1.0 [facility] ([facility]) Eos % 0.2 % 0.0-3.0 [facility] ([facility]) Immature Granulocyte % 3.2 % 0-3.0 [facility] ([facility]) Nucleated Red Blood Cell % 0.0 % 0-0 MED ENT ([facility]) Neutrophils # 12.2 10 1.5-8.5 [facility] ([facility]) Mcclain # 1.3 10 0.0-0.8 [facility] ([facility]) Lymph # 1.1 10 1.5-5.0 [facility]) Baso # 0.1 10 0.0-0.2 [facility] ([facility]) Eos # 0.0 10 0.0-0.5 [facility] ID Date Data Source [id number] 11/09/2020 07:54:03 AM EDT [facility] Name Value Range Interpretation Code Description Data Nadira rce(s) Supporting Document(s) *Follow Up Visit DONA v1 [facility] AQFDMj4eZsAGHbGqr5esXNtrRRLaw6UoBYu8YM5TZ159uNU4nOcvmKAkiTOjJlw5QVtpIjEotYI5qtdX tKQ [file] 4xC/WHW78jjnn+2d/hfCJ3jiGIN6eO7I7m90htq2c4XSVeyt1GhKcLD+tBA48IWFprjy8r8XFOZT0/bead wire taper [file] air dispatcher//YcyvJCs2y+fuidfyxrJ7a/SfrSop0otmTh8i3 [file] JXCJPAplL9l4BRD2IO2WQo8MQc1Xt4YiagS5kdQpVXajTSVzFNiQIoHmEW7SFJd= ID Date Data Source [id number] 11/01/2020 09:59:00 AM EDT [facility] ([facility]) Name Value Range Interpretation Code Description Data Nadira rce(s) Supporting Document(s) Blood Urea Nitrogen 7 mg/dL 7-18 [facility] Glucose, Fasting 80 mg/dL 70-100 [facility] ([facility]) Sodium Level 138 meq/L 136-145 [facility] Creatinine For GFR 0.54 mg/dL 0.55-1.30 [facility] ([facility]) Glomerular Filtration Rate Laboratory test result [facility] ([facility]) <content>Units are mL/min/1.73 m2</content>
<content></content>
<content>Chronic Kidney Disease Staging per NKF:</content>
<content></content>
<content>Stage I & II GFR >=60 Normal to Mildly Decreased</content>
<content>Stage III GFR 30-59 Moderately Decreased</content>
<content>Stage IV GFR 15-29 Severely Decreased</content>
<content>Stage V GFR <15 Very Little GFR Left</content>
<content>ESRD GFR <15 on WEDDING COORDINATOR</content>
<content></content> Chloride Level 98 meq/L 98-107 [facility] Potassium Serum 3.3 meq/L 3.5-5.1 [facility] ([facility]) Anion Gap 11 meq/L 8-16 [facility] ([facility] Calcium Level 9.2 mg/dL 8.5-10.1 [facility] ([facility] Carbon Dioxide Level 29 meq/L 21-32 [facility] ( [facility]) ID Date Data Source [id number] 11/01/2020 09:59:00 AM EDT [facility] ([facility]) Name Value Range Interpretation Code Description Data Nadira rce(s) Supporting Document(s) Thyroid Stimulating Hormone 3.050 uIU/ML 0.358-3.740 [facility] ([facility]) Free T4 1.66 ng/dL 0.76-1.46 [facility] ([facility]) ID Date Data Source [id number] 10/21/2020 01:51:25 PM EDT [facility] Name Value Range Interpretation Code Description Data Nadira rce(s) Supporting Document(s) *Follow Up Visit DONA v1 [facility] OOLPTq2eRwRFYnBva3ptPSppUWAak3UzDAv6VQ7GY9AxE9SXQQzfgPFoD21sHYEqyHKdkw5IE6R0fWCd gL0 [file] ms0FxDrI42baYa1k07cmhv9E69GDA91P8P21Oi2JAB/TtP6kbs/P4rz8AE7L9O4qQqAc1//evp sales/TwPy6T [file] 1iw0bfb077RVs0g13z08cg/TEuB+dD4S51VA2IGzbgogID+3SjSM8+demo event specialist/BjsQQO70SuaBq4Y6S26s9x [file] biFnLWP9JDHyQl3PRz4OUa1Yw8LatmC8hrEeHWrhYCT8TrSSMmIyEP2LLWo= ID Date Data Source [id number] 10/21/2020 03:38:24 PM EDT [facility] - CORE SPECIMEN DESCRIPTION STOOLSPECIAL REQUESTS NONERESULT NEGATIVE FOR [...] rce(s) Supporting Document(s) SPECIMEN DESCRIPTION Laborator y [place] [facility] C DIFF TOXIN B (NEG) Laboratory [place] [facility] [facility] 027 NAP1 B1 (NEG) Laboratory [facility] COMMENT Laboratory [facility] IS CLINICALLY INDICATED, PLEASE CONTA CT THE MICROBIOLOGY LABORATORY ([phone]) WITHIN 3 DAYS OF THIS REPORT. ID Date Data Source [id number] 10/22/2020 02:26:45 PM EDT [facility] [place] [facility] SPECIMEN DESCRIPTION STOOLSPECIAL REQUESTS NONERESULT NEGATIVE FOR [...] rce(s) Supporting Document(s) ID Date Data Source [id number] 10/24/2020 04:56:30 PM EDT [facility] SPECIMEN DESCRIPTION STOOLSPECIAL REQUESTS NONERESULT NEGATIVE FOR [...] Nadira rce(s) Supporting Document(s) CRYPTOSPORIDIUM [employer] Laboratory [place] [facility] NegativeReference range: Negative Perfor med By: [facility] [address] [place] [address] Infrastructure Architect: Naa Pisano MD GIARDIA ANTIGEN [facility] - CORE NegativeReference range: Negative Perfor med By: [facility] [employer] [address] [place] [address] Infrastructure Architect: Naa Pisano MD ID Date Data Source [id number] 10/07/2020 09:46:33 AM EDT [facility] Name Value Range Interpretation Code Description Data Nadira rce(s) Supporting Document(s) *Follow Up Visit DONA v1 [facility] MTMGLt6nOiRKKwInt9pdAImqVAQuv1YvOZp9AV6GK522zEC0yDpkfARblTKxZmy3NCquZJEtrJ89jLY6 2LT [file] WACre6E250E60/eT1+VBotR8brl1boGr65R57Oh630 ya404NtWHeBLQrl9AFsznok7UW4ZvJ2pc041m/D5f/3s09//ep/VU671e1c/RRQRUP7uGyHxgNiNRGm7 XFtheBAjAbBJrXMqt41Aa+4ijiREs68oKOXCfCWPiruyZ7Chw/10r8BrVI/e/PHcp5Em+qmm6sPKAWi/ w2L1LVnZWxnakc2eKj1+Ng6mgFy7/L1reX/8/w/G+8 YYB4bY2/Z+pS80rBomiG1/aGz5/luYwZL2mUcu5CmD6qrwZ+PvXs9/1v8HxVpU0bZWW4ppvBGmY016/u WHcRr70stA/zhyP4Nf+IHbr4nP613/02gIFi380gBpknB1tE/A8fScQba93/0dciY7c3ZxGozL/JL2j2 m8u6VcuOobQ6+Y7sse1Txe2bGWg6zSmOo+BZ9s02qC 8/yMvgqlMW39cxnZ8yRynHI4YD9TC/4/zqa+VBz35xVQ6A0V5FLEz+pwzY3fi0sjxUq9+uoxVY4x83ii nIT+yW6l56cxp6D+OT9y/+ZWbiGlw04cjnQw1wUSumJXSH8Sd00pkNh4P5p7y18oZQ63HJrleyrfHZ2r K1IqfrO8r4n4n+Y8Sm4XSlAbAxaW8cvml98B+WxfR3 h3MO3zfM4NN1toM27z59d33thf6gc09Zz55HKphmv07/XzZR9Dz9jVa7el4st97xb473e+a4gEmjS396 6PP/k57kNJbI/Pjlgs23T7/eQ/mokhK6H2w7hV0glE/HRrBS+gJ74NW7sg+XYSvX/03YsVw9PtrG+nca dopyeNo/RyvIS+WNla1lx5UTI3CyJCXq/N01X2x/nO /KYh176LH3M+HqVN6Hc1ZibnsboKN0+/Xy0eLiNj0kPMqowRef90I3v82Fmyu2uV+Y3WjuTIPjubej5a pOcVvgq5Opyo1VuOzJHN6iMz1Xuxj63DuC9byu999iYIc/fePEnTz/sfxUj3k/iJfcXks/gC0lepWt4i p/f1HeJ7qV5k3uZ7tkoHc0f8y4/bead wire taper/w2EI6d3tu/s1 [file] technician/PFW7+Vq36 km8dZ7Hc+LOfAjzNUbb3vhrrqHRzeDclVW9yvfHYyf9yd8iiOlvRk32IoUgfyanMlkaApV9a0cQIRM41 /+oy6NBiTR7h72fzCGU2cfA1R18MH6dIhCiBK+FZZ8+iaIHOYveWt3ibbBztEblRoN6r0ETZVThPt5sQ 2eBdrNUJsf5rdjfBJnlIrxxqdqyR2ydlpJtZiIZsQ8 72STJHwbsK8HfF4NXNWmT4xLNUvXRSIeDxguaOLVveK3NzZb56rU8jrwG2x3htXELWCgWwABB5xnPxaH 1YDGivuuPoDjcXFqbwRKLOTzAaUELHYcVdUNZqSNKmPFAkRnS0MiKeNk6YDMXlOKLlUAOwPfViGPDzWQ IqCHveCWGoCJIpBpU9XAVtQEIsTA4YCyMfXICgJFL1 ORrhZEPjMJZfkd1APGDxQHEvGOT6SWNyZVYhWYFuGEloBZWkRFLjOqBgJCWoUNJxPN8ZFrJlEBQyXCF5 GEeaHLPdFFCuws1QZDAtSSVdZoWkHgViICEyWQMmSGnjWRIoUYM6ADW4NBZjXZHmCK2QSeOjZTCeCWPk SAgtPBAoPLMxgt8CQEYaIQIqNtXpGRToYPWxSGHcSI czFQIaUFZqZGGoGBFwMQOvFV5BEwSpIYCfSTIuSkvzYXYeJHDnca7QZCApXIEyEoI5IJGoOPYkRDNoRR umPJMqBYYlAapoGWNcNPOhCY4YGtJzNBVcLNEtRxZvHERaTEFffs0YRGJcVUNuMeO3HFEdTKRdILZqIN qlPDIeYGJeIlSwFKQtALHcIY0KRlZqMNImSSV4NmRv ETHpCZKynz5YZYCmTFTxLbYbRkUcOAZoLOGpYWrbZGMyDYNyYDA4QQVbHPAnMX9FFkTiXUHsTSDyKYXy GUAiMIBvmg1WUDEiEBQuZpV8UvQaVDVfPDYyANvyJQHgRCH2WGvuTITlUYMePX2XDyIsEOEfEIFwHYvl AXAlZUYnvh2ZYWUhHNT6Atx4LVAeWUOkDZBfCUwjWQ WqEWY5VOJ4LPIoCEDvRM5QYgZrPCQpDLKsGMlpOHAoJNGbyn2RDOJkJBV1KSW4ZiEwNKNyENNdWAetJK QuYQX4Lxf7BAQjYTZzYJ4TRrDjKDTbSUP4UNCyLKXkZKEzuc5IANQkXVW0OtE1QKLwCVUsBOFsELvsRN LjLIi9RmT5EUBqJZPcVB7TOvUrNNWfLXIdAHKfFWUg PNTbdn2NKTWdAIS0GlStVoJzUWToXPUrJXkbOVAxKSj5AKN0NCBtYPToZS9XGpFaEUCqCDV2XvQgRRBb ZOAfiu4DOTWgCHCiRXB6NYTrHTXcKPDtQEhuUPFhUDM6AYSlNKUaUTDdLG0NOjUpZVNpMQY1RxBjXBHr RQYnkm4RYIYuTUSbSXX3BBQiTNRqCYJxUUbxTZPxBL W6ZPJ4WAVnMATaPP5YEoEoHJDzFOv1AxZmRKPqPCWtap5FEVTmNTFsDYZ7QNXiCFKyGRFjERwlIGRiFI W2MWwpPWKaBONoOI3HSjCmDUnyDROFYal6ZHxxQz5evSAxWFVzTr6YX2onVi0gAUniBLCPGZwuC7j8HT H3YW9QVa6AJv5Ns0FmhtD8lrNoZSrnOvU6MxfEFuMzWR0JYAf= ID Date Data Source [id number] 10/02/2020 08:41:00 PM EDT [facility] BILATERAL SCREENING TOMOSYNTHESIS 3D DIG ITAL MAMMOGRAM WITH CAD COMPARISON: Comparison is made to the prior exam dating back to 01/19/2012 LAST CLINICAL BREAST EXAM: 2019 [facility] Breast Cancer Risk Evaluation (Tuer-Romack Model v.8)This patient - Lifetime risk (to [...] rce(s) Supporting Document(s) ID Date Data Source [id number] 09/24/2020 11:46:00 AM EDT [facility] ([facility]) Name Value Range Interpretation Code Description Data Nadira rce(s) Supporting Document(s) White Blood Count 7.0 10 4.0-10.0 [facility] ([facility]) Red Blood Count 4.00 10 4.00-5.40 [facility] ([facility]) Hemoglobin 12.7 g/dL 12.0-15.5 [facility] ([facility]) Hematocrit 41.1 % 36.0-47.0 [facility] ([facility]) Mean Corpuscular Volume 102.8 fl 80.0-96.0 [facility] ([facility]) Mean Corpuscular Hemoglobin 31.8 pg 27.0-33.0 [facility] ([facility]) Red Cell Distribution Width 17.4 % 11.5-14.5 [facility] ([facility]) Mean Corpuscular HGB Conc 30.9 g/dL 32.0-36.5 MEDE NT ([facility]) Platelet Count, Automated 157 10 150-450 [facility] NT ([facility]) Neutrophils % 64.8 % 36.0-66.0 [facility] ([facility]) Mcclain % 17.0 % 2.0-8.0 [facility] ([facility]) Lymph % 14.8 % 24.0-44.0 [facility] ([facility]) Eos % 0.6 % 0.0-3.0 [facility] Baso % 1.4 % 0.0-1.0 [facility] Immature Granulocyte % 1.4 % 0-3.0 [facility] ([facility]) Neutrophils # 4.5 10 1.5-8.5 [facility] ([facility]) Lymph # 1.0 10 1.5-5.0 [facility] Nucleated Red Blood Cell % 0.0 % 0-0 MED ENT ([facility]) Mcclain # 1.2 10 0.0-0.8 [facility] Eos # 0.0 10 0.0-0.5 [facility] Baso # 0.1 10 0.0-0.2 [facility] ID Date Data Source [id number] 09/24/2020 11:46:00 AM EDT [facility] ([facility]) Name Value Range Interpretation Code Description Data Nadira rce(s) Supporting Document(s) Phosphate [Moles/volume] in Serum or Plasma 3.6 mg/dL 2.5-4.9 [facility] ([facility]) Magnesium [Moles/volume] in Serum or Plasma 1.9 mg/dL 1.8-2.4 [facility] ([facility]) ID Date Data Source [id number] 09/24/2020 11:46:00 AM EDT [facility] ([facility]) Name Value Range Interpretation Code Description Data Nadira rce(s) Supporting Document(s) Glucose, Fasting 93 mg/dL 70-100 [facility] ([facility]) Blood Urea Nitrogen 4 mg/dL 7-18 [facility] ([facility]) Glomerular Filtration Rate Laboratory test result [facility] ([facility]) <content>Units are mL/min/1.73 m2</content>
<content></content>
<content>Chronic Kidney Disease Staging per NKF:</content>
<content></content>
<content>Stage I & II GFR >=60 Normal to Mildly Decreased</content>
<content>Stage III GFR 30- 59 Moderately Decreased</content>
<content>Stage IV GFR 15-29 Severely Decreased</content>
<content>Stage V GFR <15 Very Little GFR Left</content>
<content>ESRD GFR <15 on WEDDING COORDINATOR</content>
<content></content> Creatinine For GFR 0.52 mg/dL 0.55-1.30 [facility] ([facility]) Sodium Level 142 meq/L 136-145 [facility] ([facility]) Potassium Serum 3.6 meq/L 3.5-5.1 [facility] ([facility]) Chloride Level 104 meq/L 98-107 [facility] ([facility]) Anion Gap 5 meq/L 8-16 [facility] ([facility]) Carbon Dioxide Level 33 meq/L 21-32 [facility] ([facility]) Calcium Level 9.3 mg/dL 8.5-10.1 [facility] ([facility]) ID Date Data Source [id number] 09/23/2020 08:30:00 AM EDT [facility] Name Value Range Interpretation Code Description Data Nadira rce(s) Supporting Document(s) EGD-Sigmoidoscopy [facility] BTAGIs0gZyTDBaWgYEDsGmyHTTxeUKdyLLLzA4Z9DSouXw2CGYglgyWgJRWtAl6+LOKoBQ2vvh8iYMTd gMy [file] 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+hGh4QdSdnH+MIjkYvXaLn9+ybUJacX3xrvpNIrXil1p4jofPTC1lPnS/MI7k+/3qVCAJo/Xd3Bi5e [file] Ts8bHcTjSVhLZ+1qDIOvM5XQtaxdOT9TySLj5x1mXWK6rcPoxV0fn00RFMN+nEV0A+6H6Rm3enjM+acid wash operator [file] Seng+tqBBUw6mI1eDVbVln9qJYktbODBh+gJSIe9yYbdJt/t0pOBEgSwjickKZQ2UL1pFRhG4wOWF0sWZ YxtahCRNye5t0rQs9t0Sv2FOMqlXXKlhH2Hy2yKVI48NVbvVkuP6zjFJTKOknpYqnOHtisRo/0iB2P7V aHby2ISUn0hP9qhRZgz/sAZITpffx/LOSzVTWs34C9 eY4b5j4t9dMfVadqbtxsk7+NCBy3Vn/o+2ID9hiFekhVpFlcmG7d/nLnPvQdGvfcV+5mnn6WJZgcU5OB 9Dcw0Wqfdq+UvFg21DQMVew8EGtm2nA4eF3rRTIxhctKo7XYrUOAS7fixF8sU/SfwjGQH+tquRDAdWMh ajkPJNOLlsUa9C/mRe4lI8Aj9DUrn7PtQDknZtWWew YEsTW2IT40F7jQXO3tuvHzTfWJCs9s8xWcc0GzJoQL7/WpwV2TItBlKg6FfIRTn7APE1EnYfO9xqTr/x HjCg/Lpc0dCFoHwc9uy3u/it web 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 consultant+j3qe2mpAJkWV8gsmrkokvA5zkuWyvBER61rZFCULbbMO+lx2Pnh9A4 [file] dQAWSLDPDwe6SonpZ5CPNPEcPX8R34MLMIE1o0hXeH 8JCNqxCD0egoOHEGpMe/tNPFdbkeJX1B39fafZsvMi+TXp5sCPPcFQFoeOMOaXpm5DqYV5pLtjlpabPt UwjBLgF3VXF6DXLLFqgBFMrH5Kc37V2meLzmyt98TOS4tDYqs8hAB9pbK5GNyseWUD0o5CHbjp8Xrg5o GVa9C8PbcKXNfKSpBkpvUy5dUvr5p4iI4sspSY8UyT xsHEEsQFnm7BAWu3gktzORbKaRxyl0cgaVYbl4ppXunIP3W0dnIyNFrUfmYuqwn6QQtBSxoTQhDfkVok 52u95gPzhDVh99ERdHNUlf0vO1NbHui9QuTNmlKTsO7E7dtlKR5vihaSdCkAyLzmVlWpPzIqzs0m3Iyk lc2fepbaWNvzPDZqiEFJIVTY1ccKfhCKuXpqg0IdE/ I3SEzG2GAN8dbkH3JfCo6J0B577yf9M/2kV8P/OTGRhO4+YvVAL45iDq64IIJfT0iaQwqHC11ljmkK3M QSDEmpcPxE34Rtgz3/uJ9hrpQdLNHVacJndaWBSxNy9u8PmkXz4RiBZuagFI9dg6PJWSfcyY6zMVJf0O kcWZOoisvlY3LTAm2atdgFG6VINpiAbihxpVrxQ3+p Prnj10G1hE6ONN1d49OdjByvHHXA8L30kSc6vLsfyfQAX/98G26VMwno2PHGCV07ha3YxeN9WOM/+control board operator [file] SfGwfX2s7mGQk+fjnpirjkCaUSZT8ghczfOZjtKDH3D42j2L2qBsM+nUjVCtDcjDo1DZEmFYw10+community cultural development officer/ [file] R/+jRawx9SREvFxOldO2ynhIKzTavG9AIqwGXpG5bnAfLp60iGRRNhBsvb9SmKprhebYHSdHIp+h+hand ornament maker [file] dkuCAc3qpJAgMp8rPQjXFuswS5mbVj6e5VkGUDT3MY8ss/8V2l2i8JX4B2Fn5y9NY071f723LSic/+[employer] Leak Tester [file] evp sales+elSeEC/iIrPcGX8s+rW+moFMtvcdhcULG+wcGOJqzx1UktdwI6tb4HZqDgwBkX4bA/d0991X9zAy6 [file] YzO1UOokBaXzQQcahQu9hlof1k2T5wg8uzb4FBHE8Uwk7kMeoD96EFyxUIg357h1cYywQ0yYXm8ii+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 [file] jSTkUGzf1a1tUnlu6qm+Welfare Supervisor/D6fxlDSFcM28MlvOyI90NF3he+8bFsw7F5lfgE8MRjUJBoIZySbXjfs9l [file] +NPDQHaENYk2qFb5wNf0AOEOft/g/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+VKHcY7M64K8eaoHsJoxG7cEOPPy2sPHafaHo/3CVGGlYFtGc [file] NuIlOjsIUNOfc5gSvePuwxbtGsJvjoDb1mo5t0yADxDruPJO47ymvwqbvniMzXNE7hRgbHZMdMTP+corporate travel consultant [file] ///y+I/m/+Qll7zK15zNu2SdWEmzJxKpmUZYx [file] K6CVpxRTLXUy== ID Date Data Source [id number] 09/20/2020 12:21:00 PM EDT [facility] Name Value Range Interpretation Code Description Data Nadira rce(s) Supporting Document(s) SARS coronavirus 2 RNA [Presence] in Res piratory specimen by KARLA with probe detection NOT DETECTED [facility] This lab was reported by [facility] [place] [facility]. ID Date Data Source [id number] 09/17/2020 01:15:00 PM EDT [facility] ([facility]) Name Value Range Interpretation Code Description Data Nadira rce(s) Supporting Document(s) Blood Urea Nitrogen 2 mg/dL 7-18 [facility] ([facility]) Glucose, Fasting 96 mg/dL 70-100 [facility] ([facility]) Glomerular Filtration Rate Laboratory test result [facility] ([facility]) <content>Units are mL/min/1.73 m2</content>
<content></content>
<content>Chronic Kidney Disease Staging per NKF:</content>
<content></content>
<content>Stage I & II GFR >=60 Normal to Mildly Decreased</content>
<content>Stage III GFR 30- 59 Moderately Decreased</content>
<content>Stage IV GFR 15-29 Severely Decreased</content>
<content>Stage V GFR <15 Very Little GFR Left</content>
<content>ESRD GFR <15 on WEDDING COORDINATOR</content>
<content></content> Creatinine For GFR 0.51 mg/dL 0.55-1.30 [facility] ([facility]) Chloride Level 107 meq/L 98-107 [facility] ([facility]) Potassium Serum 3.4 meq/L 3.5-5.1 [facility] ([facility]) Sodium Level 143 meq/L 136-145 [facility] ([facility]) Anion Gap 6 meq/L 8-16 [facility] Carbon Dioxide Level 30 meq/L 21-32 [facility] ([facility]) Calcium Level 9.0 mg/dL 8.5-10.1 [facility] ([facility]) ID Date Data Source [id number] 09/16/2020 11:55:00 AM EDT [facility] ([facility]) Name Value Range Interpretation Code Description Data Nadira rce(s) Supporting Document(s) Glucose, Fasting 92 mg/dL 70-100 [facility] ([facility]) Creatinine For GFR 0.58 mg/dL 0.55-1.30 [facility] ([facility]) Blood Urea Nitrogen 3 mg/dL 7-18 [facility] ([facility]) Glomerular Filtration Rate Laboratory test result [facility] ([facility]) <content>Units are mL/min/1.73 m2</content>
<content></content>
<content>Chronic Kidney Disease Staging per NKF:</content>
<content></content>
<content>Stage I & II GFR >=60 Normal to Mildly Decreased</content>
<content>Stage III GFR 30- 59 Moderately Decreased</content>
<content>Stage IV GFR 15-29 Severely Decreased</content>
<content>Stage V GFR <15 Very Little GFR Left</content>
<content>ESRD GFR <15 on WEDDING COORDINATOR</content>
<content></content> Sodium Level 140 meq/L 136-145 [facility] ([facility]) Chloride Level 107 meq/L 98-107 [facility] ([facility]) Potassium Serum 3.4 meq/L 3.5-5.1 [facility] ([facility]) Calcium Level 9.0 mg/dL 8.5-10.1 [facility] ([facility]) Carbon Dioxide Level 30 meq/L 21-32 [facility] ( [facility] Anion Gap 3 meq/L 8-16 [facility] ([facility]) ID Date Data Source [id number] 09/14/2020 01:00:00 PM EDT [facility] Name Value Range Interpretation Code Description Data Nadira rce(s) Supporting Document(s) Follow Up [facility] PHXHFz3sSfTZEeLuFQLaEifKEXyeXSqoJNOmR4V8MFhpQb1TXKtzyoIjGYOeCg6+WTEzDF1ojw0jQPHy gMy [file] G5po5DONhRS8O67OoeGJtOWKOn/51VFs2uOdsEZuOzs/[employer] Leak Tester+nrKlMUgWe8kD7qYWDInotclXKxvocJBWp [file] dqIx8hNG28hblkSxW379RLssITEJ+x8GFhUtkCD/a0Y5SOkXiaLWSZZD21QGlr+Welfare Supervisor+twn1jV3N3cwCkY [file] hot billet shear operator+uR8opVPDVBj5sMwfmT0T2enp9pGAv8v+hQTt5H [file] 33mDbvURlAY1GjDVdDCZzK/ice cream dipper+5BgzcbzJr0He8XY [file] ASSEMBLER CLIP ON SUNGLASSES+CceKF+79ANGFSTTCcAuHnEf0DOXVZiCUJQ+Mjn344nskBpnJlWGKL1dZgVQ4eVpMpEVbK4Xw0eMu Ugbtsd837xG2ffvwpuufGmaKrzQApFLDBHnwBQCrQybKH2SucPViav3vxDG660QipTV6PEQMiHF5kNf+ K3I2oN2qga/D0VeeDgLlzQjRXblm2PuGsN4cdfrt81 fOrMY0zGLCSLK+mBuvDIi+lRsEhHwTUpcxKCWCbB9OpmuST5jDiw8AJ+AEgdjl7dEiWaTODujX0QWK/H iKUps/ce7rzS3iGi1zvSKsU39hHvr4Pq/oACFl953Jk6wiLmaA1PNoK4SVfhR6BkeEkDiGpmVeh9IEvs 9yTsrOSR+wWZ+beepnqaqpvOUGbBFydWA20nbl5wqc tP4WmT6FWwNAAPLKqVqgL7YadCO0sYFmDiH8nPZiEgHShjlMFiHEE9wNqNyMvPp076kjNqV61S+pjMP2 JANE/LtjarZqmpSd1hy+ivYA1uQvqOXlVpKboTAn5ldwCfSNkRyc9GN3nvo5uSIY5TfZVwvdAiIl9J6z+ [file] Luis Enrique/0N4oPsOnX/R6hIcJN2WhOQCpN0SVSeu26kZQc7XlRtjkf9jeCGKwfh+9SBQ5zmLA6TPuwqDHHGUY [file] 8IRO/0yA22yapcl3LoApof7SgJb2nUnbdBWP+l [file] Coil Tier/9cBQZNzFgdvvuJYXFbyzThrAZ8OsQcHxzsnFIqdTMxFNcU0rN/ISQvodJc7tv6ekOo8TEoxuGX9O [file] 5UEmG+tM9bGedtpuiUBMd6H8zRzWNntpr8faUG [file] 0XqyzyvjHH62KxL062IZmZdkT80Rfe+tTgmy/6FlwlcomFP3umXVSm/Bryant/iStL9MwPJMFCgH+jZzwD0 6Hq3Rn6tRgg1WzhrKC7TO+9Zq4FmtXgB+yaCxks+TMbQWk5nCBYcspIUWuQDTbBQwl/yL/ovz9M5yLS/ 5kYWzkDWZ+o42+cw2xi0DbnMU1I6d0wAosaYnqkOP7 [facility] [place], [place]/094FN+E49dZPs+r5YeqbVYdu41Y+/BtNpL+mGnrl5izSOoFtHS65bJD7uTWPstz/U0+uFbMuCfgq [file] htyL2exkAFmCYw1Itxyqs3hQr3aZnNWy3pO5nuWF2e+Uxz+CEiZ0FpN6c7xA/zH7H7P/Project Management Professor/5bucJ7p+ [file] free lance model+JhxsvpaAM5El0O4esz2G+N7Gv/8TEuTMuFok7g188ZuYGxLY2CwEmX3wx2/mvnHPivlT/SZtF7fM [file] auditor in charge+oWdJMlzHl9wr6zyw0F7OfaZA7fJw56WV09fQPI [file] YRL1qbLqcW8QIW8tq5ChPZ8Bn9QvpiR4drWvYXjbLOMyTKI3OYufUDZFRq== ID Date Data Source [id number] 09/14/2020 11:04:42 AM EDT [facility] Name Value Range Interpretation Code Description Data Nadira rce(s) Supporting Document(s) *Follow Up Visit [facility] v1 [facility] IGEAFa4rIrQTWbTot5ntTXheVYMah9WsKOe3KI8UC1G5xMNwJ1HbbGSrz9tVNf3CNAdcZNQ3a6E7XX0C 5cG [file] SoPfmB472Azo5SpfgUJO9bkWw4/0KTBHjV04EzuZgmhxgyqLU3CR+I+1TI9Lfa1bNvGFmsB8ihtk/nighat p9i2u/6+PQx+QwMa2EuumeWPEKHwRQBjTUAFNYZkIF nAZirblGj1n88XEHdH30KPXQchBHxoLsupo12V1rR6zukJ97u5JH/wYIWsryeB+5HsWQgUdnNOfOZrKA YJFhQhlGY5aEAFadN4JCHYX6GwM+Ag5CMoYyogcIh9xMI4g70gkj2NFFTC9LXRwLOFjXvTfqpjj/KBxD EjCqDHsb/Cx+Ht3Avja9NiyJTn8fpfCzPTd5du2QQS OldIw3Tp91xj5BaFRvkSejLVpGYUgpitpRZKa1ceYkNPYgqOvuLeZ/ckX9r863zpevqIQxkO/7X2+product tester [file] 3WFLdtGxTgYAtyKPHLIo6Z ID Date Data Source [id number] 09/11/2020 02:24:00 PM EDT [facility] ([facility]) Name Value Range Interpretation Code Description Data Nadira rce(s) Supporting Document(s) Bacteria identified in Urine by Culture Laboratory test result [facility] ([facility]) <content>FULL REPORT IN LAB NOTES (eCW a [...] FOR ESBL</content>
<content></content> ID Date Data Source [id number] 09/07/2020 06:26:54 PM EDT [facility] [place] [facility] SPECIMEN DESCRIPTION THROAT [facility] ULTURE RESULTS NORMAL [...] rce(s) Supporting Document(s) SPECIMEN DESCRIPTION Laborator y [place] of [facility] C DIFF TOXIN B (NEG) Laboratory [place] of [facility] 027 NAP1 B1 (NEG) Laboratory [place] of [facility] COMMENT Laboratory [place] [facility] IS CLINICALLY INDICATED, PLEASE CONTA CT THE MICROBIOLOGY LABORATORY ([phone]) WITHIN 3 DAYS OF THIS REPORT. ID Date Data Source [id number] 09/08/2020 12:28:47 PM EDT [facility] [place] [facility] SPECIMEN DESCRIPTION THROAT [facility] ULTURE RESULTS NORMAL [...] rce(s) Supporting Document(s) ID Date Data Source [id number] 09/08/2020 02:34:43 PM EDT [facility] [place] [facility] SPECIMEN DESCRIPTION THROAT [facility] ULTURE RESULTS NORMAL [...] rce(s) Supporting Document(s) ID Date Data Source [id number] 09/10/2020 07:15:30 PM EDT Laboratory [place] [facility] SPECIMEN DESCRIPTION THROAT [facility] ULTURE RESULTS NORMAL [...] Nadira rce(s) Supporting Document(s) CRYPTOSPORIDIUM AG Laboratory [place] [facility] NegativeReference range: Negative Perfor med By: [facility] [employer] [address] [place] [address] Infrastructure Architect: Naa Pisano MD GIARDIA ANTIGEN [facility] - CORE NegativeReference range: Negative Perfor med By: [facility] [employer] [address] [place] [address] Infrastructure Architect: Naa Pisano MD ID Date Data Source [id number] 08/20/2020 01:24:03 PM EDT [facility] Name Value Range Interpretation Code Description Data Andira rce(s) Supporting Document(s) *Follow Up Visit DONA v1 [facility] QALYTp7pYbEDEeGsm7xlDBygVNKtj7BzFRg8PM3RW0JpC8NHMTahqLReM75vLUGuhEFtbd0JI7FlZ7Nh KL0 [file] GtINYGEc7LjrFrLZH3TXStEj1FGz1BZs7Bm0AjihP6mhXrCKsxSiN5HkFSTaObTL7QDCk= ID Date Data Source [id number] 08/23/2020 11:48:00 AM EDT [facility] - CORE SPECIMEN DESCRIPTION PERIPHERAL RIGHT ARMSPECIAL REQUESTS NONECULTURE RESULTS NO GROWTH 5 DAYSREPORT STATUS FINAL 08/23/2020 Name Value Range Interpretation Code Description Data Nadira rce(s) Supporting Document(s) ID Date Data Source [id number] 08/23/2020 11:48:00 AM EDT [facility] - CORE SPECIMEN DESCRIPTION PERIPHERAL LEFT ARMSPECIAL REQUESTS NONECULTURE RESULTS NO GROWTH 5 DAYSREPORT STATUS FINAL 08/23/2020 Name Value Range Interpretation Code Description Data Nadira rce(s) Supporting Document(s) ID Date Data Source [id number] 08/20/2020 10:48:50 PM EDT [facility] - CORE SPECIMEN DESCRIPTION STOOLSPECIAL REQUESTS NONERESULT NEGATIVE FOR [...] rce(s) Supporting Document(s) SPECIMEN DESCRIPTION Laborator y [place] of [facility] C DIFF TOXIN B (NEG) Laboratory [place] of [facility] 027 NAP1 B1 (NEG) Laboratory [facility] of [facility] COMMENT Laboratory [place] of [facility] IS CLINICALLY INDICATED, PLEASE CONTA CT THE MICROBIOLOGY LABORATORY ([phone]) WITHIN 3 DAYS OF THIS REPORT. ID Date Data Source [id number] 08/21/2020 12:18:16 PM EDT [facility] SPECIMEN DESCRIPTION STOOLSPECIAL REQUESTS NONERESULT NEGATIVE FOR [...] rce(s) Supporting Document(s) ID Date Data Source [id number] 08/20/2020 11:00:16 AM EDT [facility] SPECIMEN DESCRIPTION MIDSTREAM UR INE,CLEAN CATCHCULTURE RESULTS >100,000 CFU/ML ESCHERICHIA COLI ESBL POSITIVE BY CONFIRMATORY METHOD >100,000 CFU/ML KLEBSIELLA PNEUMONIAE IMPORTANT NOTE FOR COMPLICATED INFECTIONS SUCH UROSEPSIS CEFAZOLIN SHOULD HAVE A KENIA OF LESS THAN OR EQUAL TO 2 TO BE CONSIDERED SUSCEPTIBLE. CONTACT MICROBIOLOGY FOR FURTHER TESTING IF WARRANTED.RESULT(S) CALLED TO AND READ BACK BY RACHEL AT 1057 AND FAXED RESULT [id number] ON [id number] CG [id number]. REPORT STATUS FINAL 08/20/2020ORGANISM ESCHERICHIA COLI ESBL [...] rce(s) Supporting Document(s) ID Date Data Source [id number] 08/16/2020 02:35:00 PM EDT [facility]) Name Value Range Interpretation Code Description Data Nadira rce(s) Supporting Document(s) Laboratory test finding (navigational concept) 42.0 % 38.0-51.0 [facility] ([facility]) Laboratory test finding (navigational concept) 3.6 meq/L 3.5-5.1 [facility] ([facility]) Laboratory test finding (navigational concept) 137 meq/L 136-145 [facility] ([facility]) Laboratory test finding (navigational concept) 102 mg/dL 70-105 [facility] ([facility]) Laboratory test finding (navigational concept) 4.4 mg/dL 4.5-5.3 [facility] Laboratory test finding (navigational concept) 35.0 MM/L 23.0-27.0 [facility] ([facility]) Laboratory test finding (navigational concept) 96 meq/L 98-109 [facility] ([facility]) Laboratory test finding (navigational concept) 0.8 mg/dL 0.6-1.3 [facility] ([facility]) Laboratory test finding (navigational concept) 8 mg/dL 8-26 [facility]) ID Date Data Source [id number] 08/16/2020 02:19:00 PM EDT [facility] ([facility] Name Value Range Interpretation Code Description Data Nadira rce(s) Supporting Document(s) Lipoprotein lipase [Enzymatic activity/volume] in Serum or Plasm a 48 U/L 73-393 [facility] ([facility]) Magnesium [Moles/volume] in Serum or Plasma 2.2 mg/dL 1.8-2.4 [facility] ([facility]) ID Date Data Source [id number] 08/16/2020 02:19:00 PM EDT [facility] ([facility] Name Value Range Interpretation Code Description Data Nadira rce(s) Supporting Document(s) Ast/Sgot 32 U/L 7-37 [facility] Alkaline Phosphatase 142 U/L 45-117 [facility] ([facility]) Alt/SGPT 18 U/L 12-78 [facility] [facility]) Bilirubin,Total 0.9 mg/dL 0.2-1.0 [facility] ([facility]) Bilirubin,Direct 0.3 mg/dL 0.0-0.2 [facility] ([facility]) Total Protein 6.2 GM/DL 6.4-8.2 [facility] ([facility]) Albumin 3.1 GM/DL 3.2-5.2 [facility] [facility] Albumin/Globulin Ratio 1.0 1.2-2.2 [facility] ([facility]) ID Date Data Source [id number] 08/16/2020 02:19:00 PM EDT [facility] ([facility]) Name Value Range Interpretation Code Description Data Nadira rce(s) Supporting Document(s) CPK Creatine Phosphokinase 39 U/L 26-192 [facility] ([facility]) MB/CK Relative Index 2.56 [facility] ([facility]) <content>DIAGNOSIS CRITERIA</content>
<content>MMB ng/ml Relative Index (RI)</content>
<content>NON-AMI < or = 5 N/A</content>
<content>WILBURN ZONE > 5 < or = 4</content>
<content>AMI > 5 > 4</content>
<content></content> CK-MB Value Mass Laboratory test result [facility] ([facility]) Troponin I Laboratory test result [facility] ([facility]) <content>Troponin I Reference Interval f or Siemens [place] LOCI:</content>
<content></content>
<content>99th Percentile= 0.00-0.045 ng/ml</content>
<content></content>
<content>Risk Stratification:</content>
<content><= 0.10 ng/ml Decreased Risk for Adverse Clinical</content>
<content>Events.</content>
<content>0.10-1.50 ng/ml Increased Risk for Adverse Clinical</content>
<content>Events. Evaluation of additional</content>
<content>criterion and/or repeat testing in 2-6</content>
<content>hours is suggested to rule out myocardial</content>
<content>damage.</content>
<content>>= 1.50 ng/ml Indicative of Myocardial Injury.</content>
<content></content> ID Date Data Source [id number] 08/16/2020 02:19:00 PM EDT [facility] ([facility]) Name Value Range Interpretation Code Description Data Nadira rce(s) Supporting Document(s) White Blood Count 12.8 10 4.0-10.0 [facility] ([facility]) Red Blood Count 4.14 10 4.00-5.40 [facility] ([facility]) Hemoglobin 13.3 g/dL 12.0-15.5 [facility] [facility] Hematocrit 41.7 % 36.0-47.0 [facility] [facility] Mean Corpuscular Volume 100.7 fl 80.0-96.0 [facility] ([facility]) Mean Corpuscular HGB Conc 31.9 g/dL 32.0-36.5 [facility] ([facility]) Mean Corpuscular Hemoglobin 32.1 pg 27.0-33.0 [facility] ([facility]) Neutrophils % 74.9 % 36.0-66.0 [facility] ([facility]) Red Cell Distribution Width 22.5 % 11.5-14.5 [facility] ([facility]) Platelet Count, Automated 180 10 150-450 [facility] ([facility]) Mcclain % 10.2 % 2.0-8.0 [facility]) Lymph % 10.8 % 24.0-44.0 [facility] [facility]) Baso % 0.6 % 0.0-1.0 [facility]) Immature Granulocyte % 3.4 % 0-3.0 [facility] ([facility]) Eos % 0.1 % 0.0-3.0 [facility]) Neutrophils # 9.6 10 1.5-8.5 [facility] ([facility]) Nucleated Red Blood Cell % 0.2 % 0-0 [facility] ([facility]) Lymph # 1.4 10 1.5-5.0 [facility] [facility] Mcclain # 1.3 10 0.0-0.8 [facility] [facility] Eos # 0.0 10 0.0-0.5 [facility] [facility] Baso # 0.1 10 0.0-0.2 [facility] ([place] [facility]) ID Date Data Source [id number] 08/13/2020 11:05:00 AM EDT [facility] ([facility]) Name Value Range Interpretation Code Description Data Nadira rce(s) Supporting Document(s) Thyroxine (T4) free [Mass/volume] in Serum or Plasma 1.73 ng/dL 0.76- 1.46 [facility] ([facility]) ID Date Data Source [id number] 08/13/2020 11:05:00 AM EDT [facility] ([facility]) Name Value Range Interpretation Code Description Data Nadira rce(s) Supporting Document(s) Thyrotropin [Units/volume] in Serum or Plasma by Detec tion limit <= 0.05 mIU/L 11.55 uIU/mL 0.36-3.74 [facility] ([facility] ) ID Date Data Source [id number] 08/13/2020 11:05:00 AM EDT [facility] ([facility]) Name Value Range Interpretation Code Description Data Nadira rce(s) Supporting Document(s) Cholesterol [Mass/volume] in Serum or Plasma 110 mg/dL 131-200 [facility] ([facility]) Cholesterol in HDL [Mass/volume] in Serum or Plasma 48 mg/dL 35-60 [facility] ([facility]) Triglyceride [Mass/volume] in Serum or Plasma 92 mg/dL 30-150 [facility] ([facility]) Cholesterol in LDL [Mass/volume] in Serum or Plasma by calcu lation 44 CALC 50-159 [facility] ([facility]) ID Date Data Source [id number] 08/04/2020 10:24:51 PM EDT [facility] [place] [facility] SPECIMEN DESCRIPTION STOOLSPECIAL REQUESTS NONERESULT NEGATIVE FOR [...] rce(s) Supporting Document(s) SPECIMEN DESCRIPTION Laborator y [place] [facility] C DIFF TOXIN B (NEG) Laboratory [place] of [facility] 027 NAP1 B1 (NEG) Laboratory [facility] of [facility] COMMENT Laboratory [facility] IS CLINICALLY INDICATED, PLEASE CONTA CT THE MICROBIOLOGY LABORATORY ([phone]) WITHIN 3 DAYS OF THIS REPORT. ID Date Data Source [id number] 08/05/2020 11:06:33 AM EDT [facility] [place] [facility] SPECIMEN DESCRIPTION STOOLSPECIAL REQUESTS NONERESULT NEGATIVE FOR [...] rce(s) Supporting Document(s) ID Date Data Source [id number] 07/26/2020 06:23:23 PM EDT Laboratory [facility] Name Value Range Interpretation Code Description Data Nadira rce(s) Supporting Document(s) SPECIMEN DESCRIPTION Laborator y [facility] C DIFF TOXIN B (NEG) Laboratory [place] of [facility] 027 NAP1 B1 (NEG) Laboratory [facility] of [facility] COMMENT Laboratory [facility] IS CLINICALLY INDICATED, PLEASE CONTA CT THE MICROBIOLOGY LABORATORY ([phone]) WITHIN 3 DAYS OF THIS REPORT. ID Date Data Source [id number] 07/23/2020 08:27:12 AM EDT [facility] Name Value Range Interpretation Code Description Data Nadira rce(s) Supporting Document(s) *Follow Up Visit DONA v1 [facility] AENUNn4qJtIOXpSlp4ybUJovEEJom3OyZQu2IJ0FV9QgO7CwGSQbOPSFZPsnSPrkQDNdX4T1XQqqLv7B uZG [file] WJJxTw2CQ2czUx0bDEmfJIUHMAv+Rj2KXQpsbZYybPrdLLIZGfO2ZbJ2FY4BPYINO9NPEw== ID Date Data Source [id number] 07/22/2020 12:45:00 PM EDT [facility] Name Value Range Interpretation Code Description Data Nadira rce(s) Supporting Document(s) First Visit [facility] PXMQAg8kHpFKZiGbJULxSntMGVuyZFkmKEZsD8E1MQvaFq2GAOfkzdNiKCYiTt3+NMKpDO3ngu4hUTJp gMy 5eQJYxJkerM4HnLBYfs58BJIOlBTuBUpBoKsMtFIEbPJK3XBYpOHH7HiOaGsanWY5gYAI7KSJpDQleHF AoFLPaTpRpWOQ1Lg6oMSlyPHnaPq9YOL1ut9LpALBlAMOrZaxIGFemPDlkNKQeRGHsDAXqX704fgMsZI 7UuKOqIEn3OMRnXbQ9LMBhVcJ2XCTjLcXxKnSmAGMj E2Tsx717vnSdnfX7NT3OC5XgFZW1EIc0K5rvKeXtVBCkRRDbIB4nVhN6IFRlNv5JqDcyJNHkVXOjQi6W xXc3DEJ1NZEuXo0+Pj4+Fg0jbjCwMryWPDHhDM4ikt58KA9WzKPjCO7VURkeS22iKIzsOr32FJyzBEMq RbNfIEg1Sh6gWpEuu1NtY4LmVEy8D1gXSkmiA4YqOT czXQ6mCHY7TTBqOm8+Sq9dPIYlYI15JVBpBASQK3FomiQjdsUdUZg4HNNwDj1+Kb6zktQbXrsFVHLlIH 2kea14JI2SIJ4pxUooRNE7RUdhH10oqHRdL3jkQcGoK7KwfKkjRISxLL3jO4UxDJcrETDwCA6qfwMpyJ 7MvNv3KVTdGg2AjBU4TGZaV09nISPzXALPSAOsw1Ma TZ5Vf6yugqHvPVSaAZ2NJFFrK0ARB8XyX6rhjNbsHIIcYX6JLMrpfKYzTAh5UQ5QtHSuRTEsX59jaU1g BN36QFi+HjK7drUftG6NbRthc7BQRB354zz1swH8AHKpKmhQVY670oURWEKGKDzD8k2hqLV8fvO4u1HW z8Pu2U2IXp86uk+pohbHUXuh92tdruu36lyPWwyvbj /51tx0IS5oKZQDitJyqWBabpVeTY7//ccxffZWKgyDm8NXyFIJivwiwchEsjnIuYnMuEYUxGlBVLwYc1 dPQECAnkVUUuSNBDe/wJt/GkF5/rm1Ox6tBT2ktInXFB/f/C+Bvi2Q7BAzIky3SWELYSdpWoiypkT/gB 4AQMFA+VcB/A6MIRDLKUNN48anhAi/GXlqUZOR1LZS [file] fAhQFGOb0lfqlAOi8KsjHDgp1yS8yhsvWx5dj3WE5acJiqTqOLrqE38wzgMypu6hWJFeF6rwFdkh/ADVANCE SEAL DELIVERY SYSTEM MAINTAINER [file] 0OHhQjM+[employer] Packages Leak Tester/0WSV4py58tUc0pfic/S4xEdwQ/6ZMml [file] 9k3H4/dYdg1A58hNhsudQVRU6x7L7WRc++NSdj [file] neon light installer/r+H9ORhoQ2aytZEL/eVB9GvvnSGBSKv2l/rVVL54rAYO3HA4ta/tUc1n5Ys/fuySh9IepINkxI56 [file] CAROL [file] TQdp6U0/uUEC21uXq50CnQegmVsWKYFMydG6AFCozYnG5aT9LuazEZ50w1wXuVdvkst+HJW4Ag5/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+/ [file] 2juJzeTW3rCSc/Welfare Supervisor+lbYl/mPLynjo4AA4ydAUVqZFgXTk6+wY9V69HKAh3yXi9fxQjowrxp5NQkI24Mq [file] artist woodblock+qkv+u1O3P62IP9dv59zQa+N1CxL1VZsLkoK5XcwSVDZR28mSN5U0ELvFObMeK0v1YvNWixz15Z2v [file] body maker+UlRcKAMAS6z9pXgMXWRbcfFt6MnzhFfTklP9O1 [file] p+lUj6mfrtyKeKBB9HH5KOrB9DaL6MR6zdTtS5LAwPFn3X0vyByFz6D6H3IH7hBNR8YDMwdo1bsSz+[employer]iconductor Packages Leak Tester 54dT8ED2sct0WYhccp/c6Ox+9iDA9GQhRJyINyhQMN zBft/2tE3WXWQg3A4bvXG81oWBMpHYriMsELazD7x4CcGAgDC0QOS3kbdXWGmgXgUxXi0Ds1uUSwWOE1 Felicitas+puX5YpZBJfGjq/BTTxjBHB8ENCLkY/Ch4MXC3lFM0zi6VwZEmPrTrF8Q+73hlRSsWGILOPb69TXo /8/XFIajSSI4ONursCHzcD9ySGu4aUVKXsKXGA2sXN P4zRDEHvuHE5kN5Jesi57+hn41BPr6o3kF7W7tj18cXpJ2EpN3KSkeynEIszAguUlcV2q5MOUI0cesmm A0jkyw3xDWoB+9H64N1qQzCN23EwsYlZIkrSRBb4B41GCRF0+Po/dMdPC3W9gHqaiPNdnullBQom8tee zSCTffBQO0sfZkePA43O9fvPKCiQ76fpcvwPgbzqjT BsRtcJ7vBfe0TxltM7oc3DQLXOD8ehD7k5AOmZB3PEPf5t1y8lkGvvkN+iTS8MloZYisoRI8imGJcszI UDyMpxZ5lcvK3zTaoJugsw4E1HY2A8V3teHs9MD2YwS842JiS0CS9YpHTKpvQzH2pKkwSKDue2lFx8B/ bU/0i9ixdxZHJ7Kf8Tu/U9HLOu8opniX+okyU4vyq4 eYop8g9xjAlVxnHlOd3MEqrHiGZ+40GQUy4JMiyy9od2W/wzMlC5I9C0K8jZKabdUKOneHotbGY2P6I8 U3l/PjYev9xw7Qitp/gf0euOAdav5Iy5I13xNqMRaM+VWfjNLeNGGdi5n9T+13F495YhKmcTU2vMC35l akycMYfxspTzBEJlUJVghl2wnjX+Mlx/u0UdxNCILd Nen96FgQbILB6ZnqEPtrRkUS8+JseagkuX/1RUCTH/ZtEHGruq72CsUeBukOpESbZYv0jub5uSYg3ako k1Mpe4KaicF+QkKuwdnFepUeI9wcFeb82LE3v++eK9GhpkDtQuHzWoU2OpqV4xdSfobXGMSVeN4jCIBX ppYVPavxlCAMzFXUHgptdTVSShrbRJ+vQluzYimyx+ [file] Ihmmrzdq8tVSs4dTl4vkXO7TUPeTo4FEa2iWuGYUcXFxB67oSycTiSNCm5NMh+g+ocean fishing guide/WVXhRyIxXnqM [file] survey statistician/gxFo5qMGkRO413YDHOwpliHHkTU4pStYpsiDTtu8fbJnZN22JpJas9AdSl3nps0ESGYP4rKwWnqw [file] 2FfziXKE9diTSKRUNrl3rmbVUJaJlyfZjDPG0Tz+evp sales [file] shrimp boat captain/5XO0I3ugSI8FvxIZ0r381WgDLe52t4awfIK2Tp1k2sww+xq6zXh4bMDHAKGqEnKDiEFQLW9ZzXo8 [file] ENbDMRYltNBs2PRE6sj1HoSXGcZYeesjPxPpvETZgqpOZlfBuoZDNKKoBqPCb5DnhZFkDuIW2H ID Date Data Source [id number] 06/30/2020 03:33:00 PM EDT [facility] ([facility]) Name Value Range Interpretation Code Description Data Nadira rce(s) Supporting Document(s) Bacteria identified in Urine by Culture Laboratory test result [facility] ([facility]) Rx Nitrofurantion ID Date Data Source [id number] 06/18/2020 10:28:38 AM EDT [facility] Name Value Range Interpretation Code Description Data Nadira rce(s) Supporting Document(s) *Follow Up Visit DONA v1 [facility] SNDSAi7pFrENUkLcd7vmQOszPPMvn4ThZHv4TQ1TY7MzMYznibSdHZGavmQtS8KpZSCwAVLORJteSBEa 5cG [file] aVx/BOX STACKER/U6BKR/XEFy6NPYeLElgO2Ku05APtHLdHillRYQ9ORFRIAh3Q2+j0rwWPJy4qLaNPGg2JQ3VOl [file] UfL9cAH6zktW7XgLbpA6L9dkljSKrr8ld/joRYtiYj5ZGDp4XIzcnxDx2/+Delmar/OZvhjGjZFgOfSGI/N z1GmtpyaGH/bMlqTwhd5O+2NzNmAttGm61Dry3CyT+ N2u6x/lUqbsS4oV25U44x5ydxShnGKTApB78KW4L//EIwe60jjcapOWWDpM0K9Sa4uXDNj9LWCc6/ne5 eQDXk1HXS/4yEbgRF0uixgm3CjzgoTqG1l424+mTtppKajF8cG/QVpc5LfSVQ2IF5nBZ80QwOXkTVqBU fish bailer+jpa07hgvFbv7uCXvXbgwe8P1aMIaWI1utkA/kPs [file] NyAwIFINCj4+ARrWFsG7HHC2cEOwHg8TGHH4VRS7TGliTGPXFw2E ID Date Data Source [id number] 06/09/2020 11:15:00 AM EST [facility] ([facility]) Name Value Range Interpretation Code Description Data Nadira rce(s) Supporting Document(s) Reflex Urine Culture Laboratory test result [facility] ([facility]) <content>FULL REPORT IN LAB NOTES (eCW a [...] FOR ESBL</content>
<content></content> ID Date Data Source [id number] 06/09/2020 11:15:00 AM EST [facility] Name Value Range Interpretation Code Description Data Nadira rce(s) Supporting Document(s) Appearance, Urine RFX Laboratory test result [facility] ([facility]) Color, Urine RFX Laboratory test result [facility] ([facility]) Specific [place] Ur Auto RFX 1.000 1.002-1.035 [facility] ([facility]) PH,Urine RFX 7.0 units 5.0-9.0 [facility] ([facility]) Protein, Urine Auto RFX Laboratory test result [facility]) Glucose, Urine (Ua) Auto RFX Laboratory test result [facility] ([facility]) Urobilinogen, Urine Auto RFX 0.2 mg/dL 0.0-2.0 [facility] ([facility]) Ketone, Urine Auto RFX Laboratory test result [facility]) Bilirubin, Urine Auto RFX Laboratory test result [facility] ([facility]) Leukocyte Esterase Ur Auto RFX Laboratory test result [facility] ([facility]) Nitrite, Urine Auto RFX Laboratory test result [facility] ([facility]) WBC, Urine Auto RFX 0 /HPF 0-3 [facility] ([facility]) Blood, Urine Blood RFX Laboratory test result [facility] ([facility]) RBC, Urine Auto RFX 0 /HPF 0-3 [facility] ([facility]) Bacteria, Urine Auto RFX Laboratory test result [facility] ([facility]) Squam Epithelial Cell Ur Aurfx 0 /HPF 0-6 [facility] ([facility]) Hyaline Cast, Urine Auto RFX 0 /LPF 0-1 [facility] ([facility]) ID Date Data Source [id number] 06/09/2020 10:34:00 AM EST [facility] ([facility]) Name Value Range Interpretation Code Description Data Nadira rce(s) Supporting Document(s) Platelets reticulated/100 platelets in Blood by Automated count 4.2 % 0.0-9.59 [facility] ([facility]) ID Date Data Source [id number] 06/09/2020 10:34:00 AM EST [facility] ([facility]) Name Value Range Interpretation Code Description Data Nadira rce(s) Supporting Document(s) White Blood Count 4.5 10 4.0-10.0 [facility] ([facility]) Hemoglobin 12.3 g/dL 12.0-15.5 [facility] ([facility]) Hematocrit 38.8 % 36.0-47.0 [facility] Red Blood Count 4.29 10 4.00-5.40 [facility] ([facility]) Mean Corpuscular Hemoglobin 28.7 pg 27.0-33.0 [facility] ([facility]) Mean Corpuscular Volume 90.4 fl 80.0-96.0 [facility] Red Cell Distribution Width 14.0 % 11.5-14.5 [facility] ([facility]) Mean Corpuscular HGB Conc 31.7 g/dL 32.0-36.5 [facility] ([facility]) Platelet Count, Automated 94 10 150-450 [facility] ([facility]) Scan Verified machine results PLATELET COUNT LESS THAN 100, AND NEW OCCURANCE OR Neutrophils % 58.2 % 36.0-66.0 [facility] ([facility]) Lymph % 26.1 % 24.0-44.0 [facility] [facility]) Eos % 1.3 % 0.0-3.0 [facility] [facility] Mcclain % 12.9 % 2.0-8.0 [facility] [facility] Immature Granulocyte % 0.2 % 0-3.0 [facility] ([facility]) Baso % 1.3 % 0.0-1.0 [facility] [facility] Nucleated Red Blood Cell % 0.0 % 0-0 [facility] ([facility]) Neutrophils # 2.6 10 1.5-8.5 [facility] ([facility]) Mcclain # 0.6 10 0.0-0.8 [facility] [facility] Lymph # 1.2 10 1.5-5.0 [facility] ([place] [facility]) Eos # 0.1 10 0.0-0.5 [facility] ([place] [facility]) Baso # 0.1 10 0.0-0.2 [facility] ([place]) ID Date Data Source [id number] 06/09/2020 10:34:00 AM EST [facility] ([facility]) Name Value Range Interpretation Code Description Data Nadira rce(s) Supporting Document(s) Magnesium [Moles/volume] in Serum or Plasma 1.5 mg/dL 1.8-2.4 [facility] ([facility]) ID Date Data Source [id number] 06/09/2020 10:34:00 AM EST [facility] ([facility]) Name Value Range Interpretation Code Description Data Nadira rce(s) Supporting Document(s) Glucose, Fasting 87 mg/dL 70-100 [facility] ([facility]) Creatinine For GFR 0.75 mg/dL 0.55-1.30 [facility] ([facility]) Blood Urea Nitrogen 4 mg/dL 7-18 [facility] ([facility]) Glomerular Filtration Rate Laboratory test result [facility] ([facility]) <content>Units are mL/min/1.73 m2</content>
<content></content>
<content>Chronic Kidney Disease Staging per NKF:</content>
<content></content>
<content>Stage I & II GFR >=60 Normal to Mildly Decreased</content>
<content>Stage III GFR 30- 59 Moderately Decreased</content>
<content>Stage IV GFR 15-29 Severely Decreased</content>
<content>Stage V GFR <15 Very Little GFR Left</content>
<content>ESRD GFR <15 on WEDDING COORDINATOR</content>
<content></content> Sodium Level 142 meq/L 136-145 [facility] ([facility]) Potassium Serum 3.8 meq/L 3.5-5.1 [facility] ([facility]) Chloride Level 106 meq/L 98-107 [facility] ([facility]) Anion Gap 5 meq/L 8-16 [facility] ([place] [facility]) Carbon Dioxide Level 31 meq/L 21-32 [facility] ([facility]) Ast/Sgot 21 U/L 7-37 [facility] ([place] [facility]) Calcium Level 9.8 mg/dL 8.5-10.1 [facility] ([facility]) Alt/SGPT 23 U/L 12-78 [facility] ([place] [facility]) Alkaline Phosphatase 93 U/L 45-117 [facility] ([facility]) Bilirubin,Total 0.4 mg/dL 0.2-1.0 [facility] ([facility]) Total Protein 7.0 GM/DL 6.4-8.2 [facility] ([facility]) Albumin 3.8 GM/DL 3.2-5.2 [facility] ([place] [facility]) Albumin/Globulin Ratio 1.2 1.2-2.2 [facility] ([facility]) ID Date Data Source [id number] 05/25/2020 07:31:01 AM EST [facility] Name Value Range Interpretation Code Description Data Nadira rce(s) Supporting Document(s) AP - Genetic Counseling v1 [facility] [id number] QRE [file] f3P+Sv/uusJfrpg/bead wire taper/82XXR/S3f4EOosBkN/mOSqqso3ubNjYrJCOiaBVcjNB92N/WjS5VPiFd/0mmp [file] CklZivIIJSIiE5EHmeAS1OTEVPZ6UBRg== ID Date Data Source [id number] 05/24/2020 10:53:00 AM EST [place] [facility] US LEG DVT INDICATION: COLON CA RIGHT LO [...] veins as described. Professional interpretation performed at [facility] . Name Value Range Interpretation Code Description Data Nadira rce(s) Supporting Document(s) ID Date Data Source [id number] 05/17/2020 03:13:11 PM EST [facility] Name Value Range Interpretation Code Description Data [facility](s) Supporting Document(s) Progress Note [facility] VPOBJn7yMvNSGiRz92/NTNbkHMSqa9UlACxxFFg1SEryDEEgL8CfERB8iZ0kADE6IAzLFrQwMaBuGjP4 [facility] [file] fish bailer+21YnUna3hH2ByglV0zvPWA2jlk1fMW0Gb2u1Pnd [file] gwZ3UN6L3zGdZIhMG35F2aNB6ESLE/yuan/JlWTjdPcfgl4TGJSA2TrdeuNmReyA+vj3AF1YpoPdquEYUF /tAlUY9WVporK5LH81AVhEtE8pdwK3P9k3qlAa7KmUiX0KEfUPaeesuB0e0XszEfhoy5dJG+OwDkZBg9 AdDxycJn8lqek/FSYVtPag10s+SDEqRDGgzgqgqBhX 6BJAuhm57bLuKAVlE4tHKNRWeM5stiZLUf5PQ5piGdU8mTR1x7/ZFgzzInilGulaMROCPJ0QvL9Gb6Hl BvjGXk9AUipviFC8WZpRIPFZvtt2GwxnvG4CkeUvNIFQbAeX2MFvSQeyDWRWpIOX2OUsYVAE+hmApwbQ OIllPU8EcKHRrQvEjoNQjjI2K8VMhgsoLf6ZCMTyR5 93z3J8awOR9RVl/YJpEdolz3mMK8eH7lkRQ+vCiydMDoaq9y7F8OFIU765U9whnYdkY1MZ79V+[place]/dH [file] ID Date Data Source [id number] 04/28/2020 11:43:46 AM EST [facility] Name Value Range Interpretation Code Description Data Nadira rce(s) Supporting Document(s) Patient Education [facility] JUIFWj9uDuMQZpGfo4nzBTddBJZke0KgBVi1HO5FO7Syzl2Bb2IsOABlJYIBTElaQTJyVX3xWANsJ6Ih oKQ [file] Cs5DuaNtIWGgWVVjEg8RYc1GLj4Ze7FffeX8dpFjFYo3NvR1Mm9NPXPTN0NATr== ID Date Data Source [id number] 04/23/2020 03:24:36 PM EST [facility] Name Value Range Interpretation Code Description Data Nadira rce(s) Supporting Document(s) *Follow Up Visit DONA v1 [facility] CMPKMk6hDuURUwRao7gsAMfcTJJiu8BcSTu0SC7SL6MjS3XKVRepcXAuS25nTROqtJDcke2YQ8BuPLfb 1c3 [file] KmU425KghBUr5RXGPqSLDgQLGzqvD9226dsStUmAXDttciWjS7o6qO2CWbKHRvicIjB80eMT2Zg8e/fish bailer [file] QEYoCa0JO2eiIk7hWWczHKJJQMagE6y8DGT6RA2G Aj3KOe7Rp9JluiQ7iqJgYGpnLzMlNdJDObVmFD0MMQo= ID Date Data Source [id number] 04/23/2020 04:04:00 PM EST [facility] CHEST PORT INSERTION INDICATION: Colon [...] The specific port implanted was a 6.6 [place]an single lumen, open ended MedComp mini Dignity CT catheter. Fluoro time: 8.0 secondsNumber of images obtained: 1 Fluoroscopic personal supervision provided by Dr. Herrera. IMPRESSION: Sonographically assisted placement of a right single lumen chest port as described. Chest port may be used immediately. Procedure performed by Mary Giron NP. Professional interpretation performed at [facility] . Name Value Range Interpretation Code Description Data Nadira rce(s) Supporting Document(s) ID Date Data Source [id number] 04/23/2020 04:04:00 PM EST [facility] CHEST PORT INSERTION INDICATION: Colon [...] The specific port implanted was a 6.6 [place]an single lumen, open ended Nextnavp mini Dignity CT catheter. Fluoro time: 8.0 secondsNumber of images obtained: 1 Fluoroscopic personal supervision provided by Dr. Herrera. IMPRESSION: Sonographically assisted placement of a right single lumen chest port as described. Chest port may be used immediately. Procedure performed by Mary Giron NP. Professional interpretation performed at [facility] . Name Value Range Interpretation Code Description Data Nadira rce(s) Supporting Document(s) ID Date Data Source [id number] 04/07/2020 03:05:00 PM EST [facility] ([facility]) Name Value Range Interpretation Code Description Data Nadira rce(s) Supporting Document(s) Potassium [Moles/volume] in Serum or Plasma 2.6 meq/L 3.5-5.1 [facility] ([facility]) BACK AND VERIFIED BY KB ID Date Data Source [id number] 04/07/2020 03:05:00 PM EST [facility] ([facility]) Name Value Range Interpretation Code Description Data Nadira rce(s) Supporting Document(s) CPK Creatine Phosphokinase 46 U/L 26-192 [facility] ([facility]) CK-MB Value Mass Laboratory test result [facility] MB/CK Relative Index 2.17 [facility] ([facility]) <content>DIAGNOSIS CRITERIA</content>
<content>MMB ng/ml Relative Index (RI)</content>
<content>NON-AMI < or = 5 N/A</content>
<content>WILBURN ZONE > 5 < or = 4</content>
<content>AMI > 5 > 4</content>
<content></content> Troponin I Laboratory test result [facility] ([facility]) <content>Troponin I Reference Interval f or Siemens [place] LOCI:</content>
<content></content>
<content>99th Percentile= 0.00-0.045 ng/ml</content>
<content></content>
[...] PM EST [facility] Name Value Range Interpretation Code Description Data Nadira rce(s) Supporting Document(s) *Initial Consult Visit DONA v1 [facility] VCRULv8hAiCILuWic6riYEqiOIKwt0MxUHo0RA9AC836lGO7vIgjzIHexGAlJhu5SFztK4V0lEQ8U11b xKQ [file] CAROL ANN+PDAwMEI+PDAwMjg+CjwwMDBDPjwwMDBDPjwwMD X2Vtb8NIChOz68SIIrWb79GYQgUq8YPWBfIWJ+PDAwMTA+PDAwQUQ+CjwwMDExPjwwMDExPjwwMDJFPg c6HFBdVr13XNCjEr78QUSpAe7YQYEqDBW+PDAwMTM+PDAwMzA+WfjjNMQ0EutaMDK5YrjfZCLiDzc7SK BqTV19IYWeIT29RLJnOn0NIGSbLWE+PDAwMTY+PDAw MzM+XkhlWGI1NjskFBO8BtsiLKI8Gog2KECuNP57OGEdGN60KUEtWS0BDOOkVYi+PDAwMTk+PDAwMzY+ KnzkQSOQHiqmEOHMLgrpPWK5Edg0GSUlEu15WZSfVo02JOMfXT0XWBYaYOX+PDAwMUM+PDAwMzk+Cjww CJLGMvzwLFRNAbykGPBWJhf3CSQnLO31SUCwYG18XF M6QP4ZQITnCaS+PDAwMjA+PVLqO2W+MgvkMOG0KwxmICJ4ImpcEUCdDdc9YFYtQX21DEIeRG23JLS2Vb 4KPDAwMjY+PDAwMjY+PDAwNDM+TofoVDM9VobyYPH1UmhhACX5Mnb9PRSoYF49GCWqOQ60ZVQ3AJ3YXG AwMjk+PDAwMjk+PDAwNDY+CjwwMDJBPjwwMDJBPjww [file] Ol1HPr0St5JhauE8fqWnIQtuGIU6GtVRQyLyXD0TEHf= ID Date Data Source [id number] 03/13/2020 07:28:35 AM EST [facility] Name Value Range Interpretation Code Description Data Nadira rce(s) Supporting Document(s) SODIUM 143 mmol/L (136-145) [facility] POTASSIUM 3.8 mmol/L (3.6-5.2) [facility] CHLORIDE 108 mmol/L (100-108) [facility] CO2 30 mmol/L (22-31) [facility] ANION GAP 5 mmol/L (7-16) L [facility] UREA NITROGEN 2 mg/dL (7-24) L [facility] CREATININE 0.45 mg/dL (0.60-1.00) L [facility] BUN/CREAT RATIO 4.4 RATIO (10.0-20.0) L [facility] GLUCOSE 98 mg/dL (70-99) [facility] CALCIUM 8.4 mg/dL (8.4-10.2) [facility] GFR >60 ml/min/1.73m2 (>59) [facility] GFR ( AMER) >60 ml/min/1.73m2 (>59) [facility] GFR INTERPRETATION [facility] --NORMAL KIDNEY FUNCTION OR MILD DISEASE - GFR >OR= 60CHRONIC KIDNEY DISEASE - GFR 15 - 59RENAL FAILURE - GFR <15 Est. GFR calculation based on the MDRDstudy equation, which assumes a steadystate for creatinine. Est. GFR should notbe used for medication dosing. ID Date Data Source [id number] 03/12/2020 08:30:06 AM EST [facility] Name Value Range Interpretation Code Description Data Nadira rce(s) Supporting Document(s) PHOSPHORUS 2.9 mg/dL (2.5-4.5) [facility] ID Date Data Source [id number] 03/12/2020 08:30:06 AM EST [facility] Name Value Range Interpretation Code Description Data Nadira rce(s) Supporting Document(s) SODIUM 143 mmol/L (136-145) [facility] POTASSIUM 3.4 mmol/L (3.6-5.2) L [facility] CHLORIDE 106 mmol/L (100-108) [facility] CO2 28 mmol/L (22-31) [facility] ANION GAP 9 mmol/L (7-16) [facility] UREA NITROGEN 2 mg/dL (7-24) L [facility] CREATININE 0.48 mg/dL (0.60-1.00) L [facility] BUN/CREAT RATIO 4.2 RATIO (10.0-20.0) L [facility] GLUCOSE 111 mg/dL (70-99) H [facility] CALCIUM 8.6 mg/dL (8.4-10.2) [facility] GFR >60 ml/min/1.73m2 (>59) [facility] GFR ( AMER) >60 ml/min/1.73m2 (>59) [facility] GFR INTERPRETATION [facility] --NORMAL KIDNEY FUNCTION OR MILD DISEASE - GFR >OR= 60CHRONIC KIDNEY DISEASE - GFR 15 - 59RENAL FAILURE - GFR <15 Est. GFR calculation based on the MDRDstudy equation, which assumes a steadystate for creatinine. Est. GFR should notbe used for medication dosing. ID Date Data Source [id number] 03/11/2020 08:58:31 AM EST [facility] Name Value Range Interpretation Code Description Data Nadira rce(s) Supporting Document(s) SODIUM 145 mmol/L (136-145) [facility] POTASSIUM 3.3 mmol/L (3.6-5.2) L [facility] CHLORIDE 109 mmol/L (100-108) H [facility] CO2 30 mmol/L (22-31) [facility] ANION GAP 6 mmol/L (7-16) L [facility] UREA NITROGEN 2 mg/dL (7-24) L [facility] CREATININE 0.48 mg/dL (0.60-1.00) L [facility] BUN/CREAT RATIO 4.2 RATIO (10.0-20.0) L [facility] GLUCOSE 96 mg/dL (70-99) [facility] CALCIUM 8.4 mg/dL (8.4-10.2) [facility] GFR >60 ml/min/1.73m2 (>59) [facility] GFR ( AMER) >60 ml/min/1.73m2 (>59) [facility] GFR INTERPRETATION [facility] --NORMAL KIDNEY FUNCTION OR MILD DISEASE - GFR >OR= 60CHRONIC KIDNEY DISEASE - GFR 15 - 59RENAL FAILURE - GFR <15 Est. GFR calculation based on the MDRDstudy equation, which assumes a steadystate for creatinine. Est. GFR should notbe used for medication dosing. ID Date Data Source [id number] 03/11/2020 08:58:31 AM EST [facility] Name Value Range Interpretation Code Description Data Nadira rce(s) Supporting Document(s) PHOSPHORUS 2.4 mg/dL (2.5-4.5) L [facility] ID Date Data Source [id number] 03/10/2020 11:32:41 AM EST [facility] Name Value Range Interpretation Code Description Data Nadira rce(s) Supporting Document(s) TSH,ULTRASENSITIVE @ 0.403 mIU/L (0.360-4.170) [facility] PERFORMED AT [address] [place] [address] ID Date Data Source [id number] 03/10/2020 11:32:41 AM EST [facility] Name Value Range Interpretation Code Description Data Nadira rce(s) Supporting Document(s) PHOSPHORUS 2.1 mg/dL (2.5-4.5) L [facility] ID Date Data Source [id number] 03/10/2020 11:32:41 AM EST [facility] Name Value Range Interpretation Code Description Data Nadira rce(s) Supporting Document(s) MAGNESIUM 2.0 mg/dL (1.7-2.4) [facility] ID Date Data Source [id number] 03/10/2020 11:32:41 AM EST [facility] Name Value Range Interpretation Code Description Data Nadira rce(s) Supporting Document(s) SODIUM 145 mmol/L (136-145) [facility] POTASSIUM 3.8 mmol/L (3.6-5.2) [facility] CHLORIDE 111 mmol/L (100-108) H [facility] CO2 29 mmol/L (22-31) [facility] ANION GAP 5 mmol/L (7-16) L [facility] UREA NITROGEN 3 mg/dL (7-24) L [facility] CREATININE 0.45 mg/dL (0.60-1.00) L [facility] BUN/CREAT RATIO 6.7 RATIO (10.0-20.0) L [facility] GLUCOSE 96 mg/dL (70-99) [facility] CALCIUM 8.8 mg/dL (8.4-10.2) [facility] GFR >60 ml/min/1.73m2 (>59) [facility] GFR ( AMER) >60 ml/min/1.73m2 (>59) [facility] GFR INTERPRETATION [facility] --NORMAL KIDNEY FUNCTION OR MILD DISEASE - GFR >OR= 60CHRONIC KIDNEY DISEASE - GFR 15 - 59RENAL FAILURE - GFR <15 Est. GFR calculation based on the MDRDstudy equation, which assumes a steadystate for creatinine. Est. GFR should notbe used for medication dosing. ID Date Data Source [id number] 03/09/2020 01:14:51 PM EST [facility] Name Value Range Interpretation Code Description Data Nadira rce(s) Supporting Document(s) MAGNESIUM 2.0 mg/dL (1.7-2.4) [facility] ID Date Data Source [id number] 03/09/2020 01:14:51 PM EST [facility] Name Value Range Interpretation Code Description Data Nadira rce(s) Supporting Document(s) SODIUM 144 mmol/L (136-145) [facility] POTASSIUM 3.5 mmol/L (3.6-5.2) L [facility] CHLORIDE 110 mmol/L (100-108) H [facility] CO2 29 mmol/L (22-31) [facility] ANION GAP 5 mmol/L (7-16) L [facility] UREA NITROGEN 4 mg/dL (7-24) L [facility] CREATININE 0.40 mg/dL (0.60-1.00) L [facility] BUN/CREAT RATIO 10.0 RATIO (10.0-20.0) [facility] GLUCOSE 114 mg/dL (70-99) H [facility] CALCIUM 8.6 mg/dL (8.4-10.2) [facility] GFR >60 ml/min/1.73m2 (>59) [facility] GFR ( AMER) >60 ml/min/1.73m2 (>59) [facility] GFR INTERPRETATION [facility] --NORMAL KIDNEY FUNCTION OR MILD DISEASE - GFR >OR= 60CHRONIC KIDNEY DISEASE - GFR 15 - 59RENAL FAILURE - GFR <15 Est. GFR calculation based on the MDRDstudy equation, which assumes a steadystate for creatinine. Est. GFR should notbe used for medication dosing. ID Date Data Source [id number] 03/09/2020 01:08:02 PM EST [facility] Name Value Range Interpretation Code Description Data Nadira rce(s) Supporting Document(s) WBC 4.5 10*3/uL (4.1-11.0) [facility] [place] [facility] [place] RBC 3.60 10*6/uL (4.00-5.40) L [facility] HGB 11.4 g/dL (12.0-16.0) L [facility] HCT 34.4 % (36.0-47.0) L [facility] MCV 95.6 fL (80.0-95.0) H [facility] MCH 31.8 pg (27.0-32.0) [facility] MCHC 33.2 g/dL (32.0-36.0) [facility] RDW 12.7 % (10.5-14.5) [facility] PLT 294 10*3/uL (150-450) [facility] MPV 8.4 fL (7.1-10.7) [facility] NEUT % 66.9 % (35.0-75.0) [facility] LYMPH % 14.8 % (16.0-52.0) L [facility] MONO % 14.4 % (0.0-8.0) H [facility] EOS % 3.5 % (0.0-5.0) [facility] BASO % 0.4 % (0.0-4.0) [facility] NEUT # 3.0 10*3/uL (1.8-7.7) [facility] LYMPH # 0.7 10*3/uL (1.2-4.8) L [facility] MONO # 0.6 10*3/uL (0.0-0.8) [facility] Eosinophils [#/volume] in Blood by Automated count 0.2 10*3/uL (0.0-0 .5) [facility] BASO # 0.0 10*3/uL (0.0-0.2) [facility] ID Date Data Source [id number] 03/09/2020 01:14:51 PM EST [facility] [place] [facility] Name Value Range Interpretation Code Description Data Nadira rce(s) Supporting Document(s) PHOSPHORUS 1.9 mg/dL (2.5-4.5) L [facility] [place] [facility] ID Date Data Source [id number] 03/10/2020 03:54:23 PM EST [facility] SPECIMEN [...] rce(s) Supporting Document(s) ID Date Data Source [id number] 03/19/2020 07:38:09 AM EST [facility] Name Value Range Interpretation Code Description Data Nadira rce(s) Supporting Document(s) CULTURE RESULTS [facility] [place] [facility] SEE NOTE Specimen received and in progre ss. Performed by [facility], [address] [place] [id number] [email or web address], Naa Pisano MD, Lab. senior courtroom clerk STATUS [facility] [place] [facility] SEE NOTE Culture negative for Legionella species Performed by [facility], [address] [place] [address] [email or web address], Naa Pisano MD, Lab. Director ID Date Data Source [id number] 03/08/2020 04:56:00 PM JASON [facility] DATE OF EXAM: 03/08/2020CT CHEST WITH [...] sided pleural effusion. Professional interpretation performed at [facility] .End of diagnostic report for accession: [id number] Interpreted: Hazel Garciaranscribed: 03/08/2020 04:45 PMSigned: 03/08/2020 04:56 PM Hazel Garcia DO [facility] # [id number] BILL # [id number] Name Value Range Interpretation Code Description Data Nadira rce(s) Supporting Document(s) ID Date Data Source [id number] 03/08/2020 08:03:17 AM EST [facility] Name Value Range Interpretation Code Description Data Nadira rce(s) Supporting Document(s) MAGNESIUM 2.0 mg/dL (1.7-2.4) [facility] ID Date Data Source [id number] 03/08/2020 08:03:17 AM EST [facility] Name Value Range Interpretation Code Description Data Nadira rce(s) Supporting Document(s) PHOSPHORUS 2.3 mg/dL (2.5-4.5) L [facility] ID Date Data Source [id number] 03/08/2020 08:03:17 AM EST [facility] Name Value Range Interpretation Code Description Data Nadira rce(s) Supporting Document(s) SODIUM 144 mmol/L (136-145) [facility] POTASSIUM 3.6 mmol/L (3.6-5.2) [facility] CHLORIDE 107 mmol/L (100-108) [facility] CO2 31 mmol/L (22-31) [facility] ANION GAP 6 mmol/L (7-16) L [facility] UREA NITROGEN 5 mg/dL (7-24) L [facility] CREATININE 0.50 mg/dL (0.60-1.00) L [facility] BUN/CREAT RATIO 10.0 RATIO (10.0-20.0) [facility] GLUCOSE 115 mg/dL (70-99) H [facility] CALCIUM 8.5 mg/dL (8.4-10.2) [facility] GFR >60 ml/min/1.73m2 (>59) [facility] GFR ( AMER) >60 ml/min/1.73m2 (>59) [facility] GFR INTERPRETATION [facility] --NORMAL KIDNEY FUNCTION OR MILD DISEASE - GFR >OR= 60CHRONIC KIDNEY DISEASE - GFR 15 - 59RENAL FAILURE - GFR <15 Est. GFR calculation based on the MDRDstudy equation, which assumes a steadystate for creatinine. Est. GFR should notbe used for medication dosing. ID Date Data Source [id number] 03/08/2020 07:42:13 AM EST [facility] Name Value Range Interpretation Code Description Data Nadira rce(s) Supporting Document(s) WBC 10.0 10*3/uL (4.1-11.0) [facility] RBC 3.58 10*6/uL (4.00-5.40) L [facility] HGB 11.4 g/dL (12.0-16.0) L [facility] [place] [facility] HCT 34.0 % (36.0-47.0) L [facility] MCV 95.0 fL (80.0-95.0) [facility] MCH 31.7 pg (27.0-32.0) [facility] MCHC 33.4 g/dL (32.0-36.0) [facility] RDW 13.0 % (10.5-14.5) [facility] PLT 259 10*3/uL (150-450) [facility] MPV 8.3 fL (7.1-10.7) [facility] NEUT % 84.0 % (35.0-75.0) H [facility] [place] [facility] LYMPH % 7.0 % (16.0-52.0) L [facility] [place] [facility] MONO % 8.7 % (0.0-8.0) H [facility] EOS % 0.1 % (0.0-5.0) [facility] BASO % 0.2 % (0.0-4.0) [facility] NEUT # 8.4 10*3/uL (1.8-7.7) H [facility] LYMPH # 0.7 10*3/uL (1.2-4.8) L [facility] MONO # 0.9 10*3/uL (0.0-0.8) H [facility] [place] [facility] Eosinophils [#/volume] in Blood by Automated count 0.0 10*3/uL (0.0-0 .5) [facility] [place] [facility] BASO # 0.0 10*3/uL (0.0-0.2) [facility] [place] [facility] GLE[facility] Y ID Date Data Source [id number] 03/08/2020 06:38:00 AM EST [facility] DATE OF EXAM: 03/08/2020EXAM:Abdomen 1V CLINICAL [...] recommended. A contemporaneous report was provided by [facility] at the time of this examination, reporting similar findings. L2End of diagnostic report for accession: [id number] Interpreted: Hazel Garciascribed: 03/08/2020 06:32 AMSigned: 03/08/2020 06:38 AM Hazel Garcia DO [facility] # [id number] BILL # [id number] Name Value Range Interpretation Code Description Data Nadira rce(s) Supporting Document(s) ID Date Data Source [id number] 03/07/2020 10:08:00 AM EST [facility] Name Value Range Interpretation Code Description Data Nadira rce(s) Supporting Document(s) NT PRO BNP 603 pg/mL (0-125) H [facility] ID Date Data Source [id number] 03/07/2020 10:08:00 AM EST [facility] [place] [facility] Name Value Range Interpretation Code Description Data Nadira rce(s) Supporting Document(s) SODIUM 140 mmol/L (136-145) [facility] [place] [facility] POTASSIUM 4.6 mmol/L (3.6-5.2) [facility] CHLORIDE 108 mmol/L (100-108) [facility] [place] [facility] CO2 28 mmol/L (22-31) [facility] [place] [facility] ANION GAP 4 mmol/L (7-16) L [facility] [place] [facility] UREA NITROGEN 4 mg/dL (7-24) L [facility] [place] [facility] CREATININE 0.52 mg/dL (0.60-1.00) L [facility] [place] [facility] BUN/CREAT RATIO 7.7 RATIO (10.0-20.0) L [facility] [place] [facility] GLUCOSE 91 mg/dL (70-99) [facility] [place] [facility] CALCIUM 8.3 mg/dL (8.4-10.2) L [facility] [place] [facility] GFR >60 ml/min/1.73m2 (>59) [facility] [place] [facility] GFR ( AMER) >60 ml/min/1.73m2 (>59) [facility] GFR INTERPRETATION [facility] [place] --NORMAL KIDNEY FUNCTION OR MILD DISEASE - GFR >OR= 60CHRONIC KIDNEY DISEASE - GFR 15 - 59RENAL FAILURE - GFR <15 Est. GFR calculation based on the MDRDstudy equation, which assumes a steadystate for creatinine. Est. GFR should notbe used for medication dosing. ID Date Data Source [id number] 03/07/2020 10:08:00 AM EST [facility] Name Value Range Interpretation Code Description Data Nadira rce(s) Supporting Document(s) MAGNESIUM 1.7 mg/dL (1.7-2.4) [facility] ID Date Data Source [id number] 03/07/2020 09:26:00 AM EST [facility] DATE OF EXAM: 03/07/2020EXAM:Chest 1V Po rtable CLINICAL INDICATION: DYSPNEA TECHNIQUE: Single chest x-ray. COMPARISON: None. FINDINGS: Bibasilar airspace disease concerning for pneumonia.Diffuse emphysematous disease.Normal cardiovascular silhouette.Unremarkable osseous structures. IMPRESSION: 1. Bibasilar pneumonia. Professional interpretation performed at [facility] .End of diagnostic report for accession: [id number] Interpreted: Mendoza Sheridan MDTranscribed: 03/07/2020 09:25 AMSigned: 03/07/2020 09:26 AM Mendoza Sheridan MD [facility] # [id number] BILL # [id number] Name Value Range Interpretation Code Description Data Nadira rce(s) Supporting Document(s) ID Date Data Source [id number] 03/07/2020 08:08:23 AM EST [facility] Name Value Range Interpretation Code Description Data Nadira rce(s) Supporting Document(s) WBC 10.9 10*3/uL (4.1-11.0) [facility] RBC 3.51 10*6/uL (4.00-5.40) L [facility] HGB 11.2 g/dL (12.0-16.0) L [facility] HCT 33.6 % (36.0-47.0) L [facility] MCV 95.6 fL (80.0-95.0) H [facility] MCH 32.0 pg (27.0-32.0) [facility] MCHC 33.4 g/dL (32.0-36.0) [facility] RDW 12.9 % (10.5-14.5) [facility] PLT 229 10*3/uL (150-450) [facility] MPV 8.6 fL (7.1-10.7) [facility] ID Date Data Source [id number] 03/06/2020 09:08:27 AM EST [facility] Name Value Range Interpretation Code Description Data Nadira rce(s) Supporting Document(s) MAGNESIUM 1.9 mg/dL (1.7-2.4) [facility] ID Date Data Source [id number] 03/06/2020 09:08:27 AM EST [facility] Name Value Range Interpretation Code Description Data Nadira rce(s) Supporting Document(s) PHOSPHORUS 3.4 mg/dL (2.5-4.5) [facility] ID Date Data Source [id number] 03/06/2020 09:08:27 AM EST [facility] Name Value Range Interpretation Code Description Data Nadira rce(s) Supporting Document(s) SODIUM 144 mmol/L (136-145) [facility] POTASSIUM 4.0 mmol/L (3.6-5.2) [facility] CHLORIDE 112 mmol/L (100-108) H [facility] CO2 25 mmol/L (22-31) [facility] ANION GAP 7 mmol/L (7-16) [facility] UREA NITROGEN 7 mg/dL (7-24) [facility] CREATININE 0.66 mg/dL (0.60-1.00) [facility] BUN/CREAT RATIO 10.6 RATIO (10.0-20.0) [facility] GLUCOSE 98 mg/dL (70-99) [facility] CALCIUM 7.7 mg/dL (8.4-10.2) L [facility] GFR >60 ml/min/1.73m2 (>59) [facility] GFR ( AMER) >60 ml/min/1.73m2 (>59) [facility] GFR INTERPRETATION [facility] --NORMAL KIDNEY FUNCTION OR MILD DISEASE - GFR >OR= 60CHRONIC KIDNEY DISEASE - GFR 15 - 59RENAL FAILURE - GFR <15 Est. GFR calculation based on the MDRDstudy equation, which assumes a steadystate for creatinine. Est. GFR should notbe used for medication dosing. ID Date Data Source [id number] 03/06/2020 08:35:19 AM EST [facility] Name Value Range Interpretation Code Description Data Nadira rce(s) Supporting Document(s) WBC 11.3 10*3/uL (4.1-11.0) H [facility] RBC 3.69 10*6/uL (4.00-5.40) L [facility] HGB 11.7 g/dL (12.0-16.0) L [facility] HCT 34.9 % (36.0-47.0) L [facility] MCV 94.7 fL (80.0-95.0) [facility] MCH 31.7 pg (27.0-32.0) [facility] MCHC 33.4 g/dL (32.0-36.0) [facility] RDW 12.6 % (10.5-14.5) [facility] PLT 256 10*3/uL (150-450) [facility] MPV 8.4 fL (7.1-10.7) [facility] ID Date Data Source [id number] 03/06/2020 11:44:00 AM EST [facility] [address] [place], [place] [address]PATIENT NAME: JOSE PUENTESDATE OF : 1960REPORT: OPERATIONPATIENT NUMBER: [id number] STATUS: IPMEDICAL RECORD NUMBER: [id number] OF ADMISSION: 03/05/2020DATE OF DISCHARGE:ROOM: 01DATE OF [...] proximal sigmoid area. We then did a fxgs-yz-lxkp ahrqlzggngpco-ph-pca anastomosis with the WOOD stapler blue cartridge [...] patient was taken to recovery room.DICTATED BY: JENNIFER Yingictated: 03/05/2020 16:42DT: 03/05/2020 16:52Job #: [id number]: [facility] computer generated reports are not confirmed orauthenticated unless they are signed by the providerElectronically Authenticated by:RANDALL SILVER MD On 03/06/2020 11:44 AM EST Name Value Range Interpretation Code Description Data Nadira rce(s) Supporting Document(s) ID Date Data Source [id number] 03/06/2020 10:48:19 AM EST [facility] SPECIMEN DESCRIPTION CATHETERIZED URINECULTURE RESULTS NO GROWTHREPORT STATUS FINAL 03/06/2020 Name Value Range Interpretation Code Description Data Nadira rce(s) Supporting Document(s) ID Date Data Source [id number] 03/05/2020 02:29:28 PM EST [facility] Name Value Range Interpretation Code Description Data Nadira rce(s) Supporting Document(s) URINE WBC (0-5) [facility] URINE RBC (0-2) [facility] MUCUS 1+ [HPF] [facility] AMORPHOUS 4+ [HPF] [facility] ID Date Data Source [id number] 03/05/2020 01:53:36 PM EST [facility] Name Value Range Interpretation Code Description Data Nadira rce(s) Supporting Document(s) COLOR [facility] APPEARANCE [facility] SPEC GRAV URINE 1.027 (1.003-1.030) [facility] PH URINE 5.0 (5.0-7.5) [facility] LEUK ESTERASE 1+ (NEG) A [facility] NITRITE URINE (NEG) A [facility] PROTEIN URINE (NEG) A [facility] GLUCOSE URINE (NEG) [facility] KETONE URINE 1+ (NEG) A [facility] UROBILINOGEN 0.2 mg/dL (0-1.0) [facility] BILIRUBIN URINE 1+ (NEG) A [facility] INTERFERING SUBSTANCES MAY CAUSE FALSEPO SITIVE BILIRUBIN, WHICH HAS BEENSHOWN TO BE CLINICALLY INSIGNIFICANT.CORRELATE WITH OTHER TESTING. BLOOD/HGB URINE (NEG) [facility] ID Date Data Source [id number] 03/12/2020 10:11:03 PM EST [facility] CenterLuisitotiff Cheng [place], [place] [address]Jmj# SURGICAL PATHOLOGY REPORTPatient Name:JOSE PUENTES:1960Received:03/08/2020Accession #:[id number](s) [...] 03/12/2020Electronically Signed Out By Altagracia Cadena M.D. [facility] [place] [address]Technical component performed at [facility], Histopathology, [address] [place] [address], [id number].Reported at [facility], [address] [place] [address], [facility].This report may include immunohistochemical or in-situ hybridizationresults. Testing was developed and the performance characteristicsdetermined by [facility], [facility], as required byCLIA '88. The FDA has determined that approval for specific use is notnecessary for clinical use. The quality of Hakeem toxylin and Eosin stainsand as applicable, for all immunohistochemical and/or special stains,including positive and negative controls, were reviewed and consideredappropriate.ICD codes:CPT4 codes: A: 24981L, 36050p, 77120(4), 94985u, 59351(3) Name Value Range Interpretation Code Description Data Nadira rce(s) Supporting Document(s) ID Date Data Source [id number] 03/04/2020 09:52:00 AM EST [facility] [...] rce(s) Supporting Document(s) ID Date Data Source [id number] 03/04/2020 09:50:00 AM EST [facility] rce(s) Supporting Document(s) ID Date Data Source [id number] 03/02/2020 03:28:00 PM EST [facility] Name Value Range Interpretation Code Description Data Nadira rce(s) Supporting Document(s) SARS coronavirus 2 RNA [Presence] in Res piratory specimen by KARLA with probe detection [facility] This lab was ordered by [facility] - Surgical and reported by [employer]. 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 [file] BSCgo+AicbyKJwqIyoOHHRBWPcQMyfKpQbDF0R ID Date Data Source [id number] 02/27/2020 02:26:24 PM EST [facility] Name Value Range Interpretation Code Description Data Nadira rce(s) Supporting Document(s) MUSE EKG PDF encoded [facility] JZFMCu7lYgPGUuWsh5BeNkOyFHMwDS5broa3C2S5zCXqQ8FmkEVkh3bzK4KcG3McRFAxYKLRPH5XkPQb jb2 [file] 7VCIsppHHrygxgPWkB61mZn8JReLnl+VjyQQ/ExVAdlgB9MgiioinapA5FII8E6WQAIrsSk7Wv3Gg+yuan ELLQhac2mffLdsQ9yVxa3ggTUsl7cS+YKuE8yN1yrxM0F8DDdFpgMN4WpD0uMk6JLUPIsNGQ0E/t7Fx5 NqDHabS6eEtI4zMbCBCkMyDmB3w//1f/15c5WYJa5/ XfO//5///B//d/fish bailer//mf//5///M//vu/TbJdb0M+87//Z0huOo8//itcXCpd+G3NAvwVvkRWO/j4D/Ar v/3yh/BoU4nlfm0zQ/RS3xezBuoH/Innmb/3feT63W/Fm472bk0w9r968MJWyC/eG+87I9/ifW+6rrd4 XwUGsHjfo/S/9/36G298/4k4fpcvg33fo/mKTfQDiZ X2usa/utd/+Z/w79o67jreP/J3mmvv2kr/3vemK/8HDO/1P1x4n+EHC++z/UUdfnSf21qZ2K6+B91298 0jfyB/IN+C67kzUO9T+/KT9jLnrz3/SCP/IP9U/sD7jq/yIpJM3vd+I/rjHe7Zjzg6+s/oNV7G+JBGvi PfkY/+RAhPu7Kv/45P49hl9XR1yrR2jxypD/59SCO/ Ib8h3+d09Uj5HR75srL/kI/3da/x6PG+iyCfE1S+xpRj/Kre2sxd4f5gY4/3vcxdv/diFoO314l8n72i Vc7E+00wxN9s+jPh3H6rh652ST7ynPKgldzfbS6ytuIoTxrme/Qnzsnll64SU22bHka/vunKX1+Vs756 ztVqvKxW/X/Bw0SC46CwtNh+wKIvQa2T7RJxJr/+sG S2ylUym4k0vplzO84ViEXh5h1KLMl/6kro2xhmD3m8kWGNcqK+7/vziiN2p++9Knk6H3f+jR/l//rz9m kKB7yfnKm1y/i361vOt/zf++6l/N/77pVBID+kkb+R/3vf+2y/975sqxb10Y7Ma4TjU+Re+7SWUk97YH V/faM6si7ZbwfGRcbppyilB51Q2+TM4706gT+GjYn3 oSobqssfXgM97wssgVEy5/Gc+r+c6M/0Emb2JuamPb5bk2R8Ut0m/+amrfS/fFsZV+Rf/u8HFel/+b3L VfnXn38/n0h7pX/jt2f5A+X8xm/yIy76xanLHVdc8AQ/RF9ghQlvQDzvaGt3QDhzo2/uD6QgMEY/eIZk /kdKjBlp4TtzR2nvc+Jf2yq/yI4m49hBV7j/76X8+L 437XVvfN+sa7z+H+7ddaiVapQ2u+6N75vp+E46afD3j+P5N8o/rz+SS3e6m0ZYxVYcB46e+TvcColR2r CegV1t7r+8QszaA11kzph4ltG9msgq/KqOOHw23Xl0Won+XnojfyO/cc23qOnn+1ffvX/5Fk13PES3q/ F0yYfjGX6NUD3xv/RA/sD1/jrJ5MX5WU9HE04tllk0 ZPmi3h2PcyQ1I/fR12WkwJ0lzTdiNhurrpwWaLTUqaAg9AN+/X9N+Oqmkd+R35E/kD+Q23l9p7nN+Co3 H0MPvvA/RE9sinF/sMWx9TdiQp+Y778Uu33l+Vnd0i1GB8eV+vBPOA1sUnK5/4vrXqU5ZcdqGDK2Ug+q 5bF2SfEaAB8A+LiDcevnJyMZ0XxQ3Ifsa/DVTXtdY7 fsyT2hJmhpxPffhC+o1z+pZk3UxGDYg8i/z1Xja+6aZ+ZG/qlxMU+Ni/U9fBL+GS/dkN+Qb8jH+F0d+R 35o+tHaas0J67h/rnvAduU2PK5Ko4usYTnLsYC+VpprdwM5EB4wNUZrjm8e3FP3rhzlV+4vlf/2b3q3Q YoZ9Lx1I3BC+MH9pTD5cg9SGeT/T/j2B0a0O/kH+Sf ce256oGNv/V/G4UzAScAXkM/w9pxi2yBnfjywj2V+vPB9xW+0n9E+Gn28wKjYECd/HoQVs586lxl4p2/ F04W+C9VQ1e7I5rTOj76p8Qias1qzRLtYIvW6aRA3lre4FmMiGl+I38+HBJ+Fa/l6xLmCJfvfrOhX75O f+m1mr9j0x4kbzFaijg822oorGUneDnnY/iqC19l+e GYIvI47ovArqr5AJ03Wg3Ddj8wA3348wy9Oyrg8OA+o+oBOo514Mbwz0P0rOg4lR6eI9LvVDYv6FjeDu 8I+0DzFT93TF5YeTl+Dz+hwkCVx7lUKcKj1/OH/Uq4vct+dVR+rX+20DNX4OIb8EdidkEMwM0O+ErtbP i+ogo9MlKkVzjWlKHHn7JoG25Jk4p/kVz34Dd/uDcc VN7909B0hkhbmtrkk2SL+6x+HvjqpfH8+6w8Uaj5yF3D+EVeIna6Hcty5n81xHALl/JH/9Sc1prTelCe S4h7N45MFr8VG7V/kL+Qv5G/iZ3hMn7SbPgQksLFqyV63TO3J7P36xN8XxslZl1wJS/gq2wfr/VvOD7c Ntx46hlzEh7Eg2v6dX5bjfZu4UZI4kap/9/tmP9pqc vzq6eniJ+q/8/Sa744xqsj+LnP+v/2Bbx2FgkwBbBakbAm4Z/3X+0FK0nsime6dwpm+bf7psmuB8eNk8 UgQa8huzja30Flz49ZPawoqh414V996w+W4l4Q2zoVcq6kT/X/5qPIpiOZ44R+LNeB22s38CqRU/taKH /MjZq3rjOPV4y+ESn31znt+AbGO7kxk2H+4au+yx7b d0d+4au+Vs154ntAS/Id+RP5s/xN1NPDuvf338mf0520t7u285Z4R/2U/noHM8y9sg/CMcCNnW9e0+J9 F9064X2VinTAnB0ivw8Dm1bjtmljhC/B+56Nejeep/aPwjshnz+cEyr9+n+8VqRn51p+QvglvHR//Sq8 WfWoi7YZvABlwTsvR+TX/lG4I+T4Cm+VwNLTQ2Xqq8 ELTU8X8RzUdhHcJWkqXxcc/BDy/s6vNRPKig4fmA7K7yRKZlSMct2WL8R7oJ41xPZsWcf9vo9rqk3nqp FKxlWNR6xsex+k9pvz7al4oI6Ns/9Laz3Oe4NLybM01c+CwjMKO8nmb9yKj16u69ybfJK/fCR0BtqMzx xXW2l/OH+k/apFeiJ/4vr1/tMrGhLVWLsCeK2lmY2m a8ng2bHuZNz0/l7r/fAuuO/ea70/KP1Xhi8wf3J1Au8AA/jqpt9/eQhfqe/5ss4W7ku4i19f31EKP82b D/6W9Nq3vpoX+Czg2lg22fKovD+W34oNs4DFP/vEwcPyF60BBWG/zmvC/qy2GmF/tkw/+3U2BdL6XAeT 9SZHJtVeaQJlCeKg7zPDW73YZsz1WBqBI6m1uw0Ug7 5b+78D+9Wb5Wc5Etdu9AN0Qvs2Q80ZJdAMPrRv7ifwxSF9da+WN32oRwfXHUk4eB+y3vi+ma717/CyTw 4v+2WStdm3lPiFE+DdW+rm8PD99Unliu/P2c1mwY+KbP5rpmqL+P0fcjio0Qmhwv13BO/plK6wKftfRT fyJ/OA0amQ0Tg/w24PA6wgYieYH1K+WpivFsbvwvhd Am0hrae4y7j2H/l4X+Grm0b+/P+gSmTxPYjSUjx6YI0e4XGWaGExzyra9WCOmBKut5b0TPZdqpGheaRm kfbtyV91/9mZ+kRR5zCs4p+03e03C7/NGKs7sh8P01If5ooVs4is5Ue58wA7i+9PH+CPbo+3/Nx205OA DXwDv+1XE/fqHgaMjV0efz06Gp+sfR9B4B5r9oy928 n6lmkFdvS+EB8jgn9z/bdGn/+a04R9T3zSu+J6/H/D+r8cC/wF/gZ/g4/1KhztbH+YTi9kFU27te7x9T /l9t+yR6Y3of/1Dpa6c9Dm16tm6rpkVa/AN/D7+x4//vrulueDt/bZVmjqi0Gw6Qb5ns8l5R38+NL2SZ P+nis0vZ6HlXKv2xdE/AH+BL/9AWLQZ8/X/g2aIG76 HJ/9GifHZf/x2z/nOOy/ex31tH/O8da/62i74ysJq5+k46n/ilc0UUwiE6xC/2pW+cdkyb2CLhGvtfM/ 9hvpWKk5l/MXh0ItZka0i92iwe6W5+TD5ezkg/7Uxl7Qp3jPpf/16X/lyT/gS8sQ86//smxdHs/OZul/ DoNutlKdOR9xeCmJ+73S/+h9m275zj4I/+ro7Zb+V9 n/8L+a1zCGEr1PGk2CMm+PbPZ+6Cv1IebGAb0vy5brIpR3cCW13Imjs/b8qhpQ7RrW96X1+18Z/K9s9n 7HCl3WaAQ9l6n0z5uxT3SLm/+zdA2EmU7diga2xhL6uCzXjgOu4gbBvu8ajN3P/Os9U4Xu/5r1/9dsgd /2K7M+7zbr81/D+xSX06KG2aasJmt0l0gyaEF/kfX/ 9KuyCR/X+q3EcmJ95ROdOJ732WTBA59La+N/NaLKf/nT89Ivh/rbMWUZ/Y45EshrwyyNqrml//pxZ/k3 X/K7p/9VtWc/fy1bbc+x1ee/tnq/i0c6A83q+6Z+leNktz+U3kKOnaWukygrqzsQvfFL19J/v0udD+b1 E/DTt7vfU5c4TYQfr8GwQ80j1nbo+1b+L8nMHxvpju Lv81/d8v7zaW0s6npTp23544h/qV/VNe0/sA1Hk7X64tFC/rmn8Ky2jGR/2IcPvfnznY9mj/x/A983MH +jz/ct+divWxLVDP4ErsZ/zwctWp+8qF4YfeZr1Z+lx0t7H3Lz/Ae9q6b63sK7AAlBR+hXK+1Xt/z0hP W1vrE+XS1zlimVjw2+/gCCS84c16VB4eT4Jb4Ud8Ak w9514b14e+L3uofofG/UPVaDpcSDgnT9azevF9gC4WF6tZktxjIxu9eN1a9C6g/Of3+l/vaUkf0u0AKk f+G5C/z2F13S/nNJ0T5bH2N8dg2Is7au9vz2ML3qD1p0u/N9U7+6ZfAH+SF8pxzxmX0yyhaWMv96Pn5N f4O/we/1ecG/fWmg/dH9NvC+8G9fo/cLa/R+YY3Wn9 mcdonough+wobG8Dg/XnNSbqwfum/1Vd0/kUoe9Duph+z981ev+1Ji0Fvyh5chAv/pZ/k5JrdykP/ar6YUp/92 O/hrJfE38gy896i6P7zTu/E/N3Ws/HaT0f5+rvMhfag/Dh7gapf3n/yjky/jvcp6j0A6+vmrP9UL2fm6 /VBDmuvNC28oPk6jJfLdu67JJ2/T9DapgPL7S4zhab 1Dp+MLj4t9uWk9uGj/K7W+8Hl/V+yDvNT6002qosF/jtb7ZW+/Rk5a0js/X/pE9KM5YrmLzF92BE8cwx C2lpGFrH1E1M4/80mo5x9ltxg55G5tn4N513z1/V+vNarW+s1K+yvNvevvYHfvtfLfhfLfhfrbJfZbnP D1drd6RQ0hiph/OipjIzKxr4k9FrQ0+7V5af/rZ2+5 st+Lcv+F+k8fyV8lL2dOiPr9D/4/npxwpOrF017Vr/znHox/2j61d95TNNB/05v7W3/zo47bihO/tzjs +ffvV3/WmPH/052+h72WgVg/6ca6Yf/TnXHz/25/ymvt/+kXgWEppyt59c9ayd1x9OA7pth4L2n1n0s+ dzo/0ZVrQ/8Iq2P6/5j34bb7tkpx5t8gqC537+D13R 4AJdBK6o9CSF96Xj3fcsB/iO9+a43Tj24bkH/BJ7um53s2DUl8mu1SWZm3/7q7dlj3tq81bh2xmc2/0Z nmuof+X0An7D1ccjVzt+7ftz1B+op/e/R9sfvYE+bEljZ0u7vbgpd5ok5Y7J1zS9q0yw009oV25yG32k y8L1C/K3532g7TbNT3i57jG+wFv6/Hdr25+3tj/hrv jBKoPf+sbWttftPB+LyGrYh5eK0Gv5Vv4Xi1Ww0L/wN/qnh4sgw5Dcz4se+67h2Ru0vQ02N+gGeor4Il 1cNoxsM2bs4/JE/PH60TRnd9aiYfCN+Ss97e10f6p/41X8zy16Z++PdtmvTnni+83qF30QY+7Z+uSeCr 6Cj+878X1n+1rk0B09/Ek23ix08Ze3DlU0+Hs3Cf9E 2wb8Erl7b4l10im0HKqcu49aa271B/tvbMQPbsQPbsQPbpvgG/h4X/t3k4zi31H0ZnwZfaNH+Ct955O4 XR/1tV99M25n5bR+G3th/q62t+19oCy8Bw8FaPI+8Eu+9fhcrT/m6fkpIu8a3ajggNmnmWhoect5xiMf 3u/v/ERmDM8168v6nwuQ+MGcdxk/tZWfjfFYjwl9e+ 89wTdcj/o495pF0Q8mB7d1/mjvjg/du+2TG/arjfjBvfH/5mPvc0u//516iGkcuqY5ZK+A3/f43A3n6s 6Uu3SksD64Mez1/8ZG/ODO+WMS0Br4eqA3Oe2+pv0nN/AhTRyxoR66u6Mc6Yq88q+yA++b+wRwil4pnN skjulmT4XghS/aQ48Pk9368Mq3cq7f623cr/q353tF 3dx14on7JcQLnuzEF61G7jcvPW08Yf2ydvi3/KBn/KDmNUd/PnqCZ/mjvoko3WCxvJ8hophdmg+O7cd+ Nb6ss/03/Xqx5vqqv/3qtme/8yCH/spFz3d6Fswl/Cf6mp0ia9hhzZmCle/z9G8/28GWoz4qM/92Tb6C f/Zej541+rdnf8K/6iX6jE2iE4xf/DVkUx3ZN1+q8g Z/W7e5/Rlc+sn20Kn39klenA/l9dr+wI74Qc/2aheyxB33oq8r/2T8YF0/uv3a+wVP/1zYgytcgVqB1k 3Jm59Q43/Us1F/rg1U9kjwoNDvv+Vw6272sB+Kj56/Pnr+pxqjdl4J42537Uqu/N7v+5jgT/Dbf8NH+0 /6wPsOfN+Q3dnpagY+VfX0/tfO5un88KjVF73JM/vH +mz/WJ+9P/LZ/s8+FfWM9x/50ms8Mt8FB0bZ+Iq4bQ5Dx1G/zo5FvUh88vgj5+fdPnu/74YvIwc4oa0y /RwuMe67w3q7R+8S3NC1Es6Ud9M/u/9HI4MzV8ZsE6AuI5Gv/78gs5m8QhtL80buzJz78Prp//ya824S fgZf+L6r/Av68Yvyw/IR2oNhQ980QWGGxyZbQ5/AX+ D3+a+vPv/3vuJbUgyp1J+8V+8Hfbf/s+8+L3P4X/lufzPfmL+IH3TED/ru+F+H/5Xv3u/1fzsrs3Vg09 7hG++725/fU7+aGf182zuaM/8a0la60E/uEYjg0AuocUwA4/i0m6y9SNY4nH/hf+Xe/jnuGM/e+1/3ts e6t/7s3vqz+wYf/9+9P72ubp7/GamtfPadZfz0zhi+ Vw7/K4f/yKpbl2p7zPrK/8rhf+Fd3Ey2j1Z8qz1i1MK1sx8Ks+05Hu0/6dH+xy99T3Q/j+Jrf9HI+MGj +1RLV33oU37hNy0k9BnuoYuHdKK6vX/cpzy/bzx7vwk4LJ++pU0mg8WL/5G1Esv13d1LW0eNF3z0mFyr eI9cHyoFPIKgkmS2J+k0PDF2cGgM/IHrh/C4N1x9zr cDzpwT9S83db9/GBU/bJW06FtP/GBk/GCxkaAq1e60mJW/o/zhZRpIzhatbMZwfDJDC8Yq8Wg+sK7XZ5 oSex23ovnGti24hjvn+aoVkqwje8q+nPWn/nzafPyvpOo5+nNds9/+WwT2ZHNHK81F962K9z7+xnlo59 +I1K+khw5mAu4F3lluC4h7B43asfee/g9u0DbV7k4k cma9Oz0aKuycgz6zzPumoF489h+31ej3hKwsTrBLkq71cIT8c4tdI2uDQ9waX+N5Yjxn/OAtg6/gY/7O 0jyW5fM/MXu/Magdalene/OJKf/ruYtj2e4xuD/gZ/g4/epVKE1BnM67n1Mior0M5Iss9xOjg8S/l5119ob8Es [file] D0SEY3oAKgPncjQTU6EATKQWTEI6P= ID Date Data Source [id number] 02/27/2020 02:18:00 PM EST [facility] Name Value Range Interpretation Code Description Data Nadira rce(s) Supporting Document(s) Blood type and Indirect antibody screen panel - Blood Laboratory test result [facility] ([facility]) SPEC EXP DATE 03/08/2020 PATIENT ABO/Rh O POSITIVE ANTIBODY SCREEN NEGATIVE TESTING SITE PERFORMED AT [address] [place] [address] BLOOD [facility] COMMENT BLOOD TYPE CONFIRMED. Carcinoembryonic Ag [Mass/volume] in Serum or Plasma 5.9 ng/mL 0.0-1 0.1 [facility] ([facility]) CEA REFERENCE RANGE: NON-SMOKERS 0.0 - 5.0 NG/ML SMOKERS 0.0 - 10.1 NG/ML SERUM CEA LEVEL SHOULD NOT BE INTERPRETED ABSOLUTE EVIDENCE FOR THE PRESENCE OR ABSENCE OF MALIGNANCY. METHOD IS ADVIA [facility] XPT CHEMILUMINOMETRIC IMMUNOASSAY. VALUES OBTAINED WITH DIFFERENT ASSAY METHODS OR KITS CANNOT BE USED INTERCHANGEABLY. ID Date Data Source [id number] 02/27/2020 02:18:00 PM EST [facility] ([facility]) Name Value Range Interpretation Code Description Data Nadira rce(s) Supporting Document(s) aPTT in Platelet poor plasma by Coagulation assay 27.5 s 22.0-34. 3 [facility] ([facility]) PERFORMED AT [address] [place] [address] ID Date Data Source [id number] 02/27/2020 02:18:00 PM EST [facility] ID Date Data Source [id number] 02/27/2020 02:18:00 PM EST [facility] ([facility] ([facility]) PERFORMED AT [address] [facility] [address] Erythrocyte mean corpuscular volume [Entitic volume] by [...] [facility]) ID Date Data Source [id number] 02/27/2020 06:34:29 PM EST [facility] Name Value Range Interpretation Code Description Data Nadira rce(s) Supporting Document(s) CEA @ 5.9 ng/mL (0.0-10.1) [facility] CEA REFERENCE RANGE: NON-SMOKERS 0.0 - 5.0 NG/ML SMOKERS 0.0 - 10.1 NG/MLSERUM CEA LEVEL SHOULD NOT BE INTERPRETEDAS ABSOLUTE EVIDENCE FOR THE PRESENCEOR ABSENCE OF MALIGNANCY. METHODIS ADVIA SecureWaveAUR XPT CHEMILUMINOMETRICIMMUNOASSAY. VALUES OBTAINED WITHDIFFERENT ASSAY METHODS OR KITS CANNOTBE USED INTERCHANGEABLY. ID Date Data Source [id number] 02/27/2020 03:32:08 PM EST [facility] SPEC EXP DATE 03/08/2020PATI ENT ABO/Rh O POSITIVEANTIBODY SCREEN NEGATIVETESTING SITE PERFORMED AT [address] [place], [place] [address]BLOOD BANK COMMENT BLOOD TYPE CONFIRMED. Name Value Range Interpretation Code Description Data Nadira rce(s) Supporting Document(s) ID Date Data Source [id number] 02/27/2020 03:14:55 PM EST [facility] Name Value Range Interpretation Code Description Data Nadira rce(s) Supporting Document(s) APTT 27.5 s (22.0-34.3) [facility] PERFORMED AT [address] [place] [address] ID Date Data Source [id number] 02/27/2020 03:11:23 PM EST [facility] Name Value Range Interpretation Code Description Data Nadira rce(s) Supporting Document(s) SODIUM 141 mmol/L (136-145) [facility] POTASSIUM 4.2 mmol/L (3.6-5.2) [facility] CHLORIDE 107 mmol/L (100-108) [facility] CO2 28 mmol/L (22-31) [facility] ANION GAP 6 mmol/L (7-16) L [facility] UREA NITROGEN 7 mg/dL (7-24) [facility] CREATININE 0.70 mg/dL (0.60-1.00) [facility] BUN/CREAT RATIO 10.0 RATIO (10.0-20.0) [facility] GLUCOSE 85 mg/dL (70-99) [facility] CALCIUM 9.9 mg/dL (8.4-10.2) [facility] GFR >60 ml/min/1.73m2 (>59) [facility] GFR ( AMER) >60 ml/min/1.73m2 (>59) [facility] GFR INTERPRETATION [facility] --NORMAL KIDNEY FUNCTION OR MILD DISEASE - GFR >OR= 60CHRONIC KIDNEY DISEASE - GFR 15 - 59RENAL FAILURE - GFR <15 Est. GFR calculation based on the MDRDstudy equation, which assumes a steadystate for creatinine. Est. GFR should notbe used for medication dosing. ID Date Data Source [id number] 02/27/2020 02:54:46 PM EST [facility] Name Value Range Interpretation Code Description Data Nadira rce(s) Supporting Document(s) WBC 6.4 10*3/uL (4.1-11.0) [facility] [place] [facility] RBC 4.53 10*6/uL (4.00-5.40) [facility] HGB 14.4 g/dL (12.0-16.0) [facility] HCT 43.0 % (36.0-47.0) [facility] [place] [facility] PERFORMED AT [address] [facility] [address] MCV 94.9 fL (80.0-95.0) [facility] [place] [facility] MCH 31.9 pg (27.0-32.0) [facility] [place] [facility] MCHC 33.6 g/dL (32.0-36.0) [facility] [place] [facility] GLEASON Y RDW 12.8 % (10.5-14.5) [facility] [place] [facility] GLEASON Y PLT 314 10*3/uL (150-450) [facility] [place] [facility] GLE[facility] Y MPV 8.1 fL (7.1-10.7) [facility] [place] [facility] GLEASONY ID Date Data Source [id number] 02/15/2020 05:06:22 PM EST [facility] [address] [place], [place] [address]Jjd# Surgical Pathology ReportAccession #:[id number](s) ReceivedA: Descending colon polypB: Descending colon massC: [...] entirely submitted as C1. 1 + 1. jgllmbenjamin/hemanth Reported: 02/15/2020Electronically Signed Out By Jordon Astudillo MD [facility] [place] [id number] component performed at [facility], Histopathology, [address] [place] [address], [phone].Reported at [facility], [address] [place] [address], [phone]. This report may includeimmunohistochemical or in-situ hybridization results. Testing wasdeveloped and the performance characteristics determined by [employer] [facility] as required by CLIA '88. The FDA hasdetermined that approval for specific use is not necessary for clinicaluse. The quality of Hematoxylin and Eosin stains and as applicable, forall immunohistochemical and/or special stains, including positive andnegative controls, were reviewed and considered appropriate.ICD codes D12.6 C18.6CPT codesA: 88008IZ: [id number]: [id number] Name Value Range Interpretation Code Description Data Nadira rce(s) Supporting Document(s) ID Date Data Source [id number] 02/09/2020 10:39:07 AM EST [facility] INFORMATIONPatient MRN Name Date of Age Gend*PT [id number] Jose Puentes 1960 59 years F OPPT Location Admission Date/Time Visit ID Attending ProviderEndo Conner 02/09/20 0828 --- Yanni José MD([id number]) EPI ID CSN Admitting Provider [id number] Yanni José MD([id number])Colonoscopy Procedure NotePatient: Jose Lombardo AdiliaterSurgery Date: 02/09/2020Surgeon(s):DEANDRE Flowersre-operative Diagnosis:Change in bowel habit [...] well.Estimated Blood Loss: noneImpression:-See post-procedure diagnoses.Recommendations:-Needs surgical resectionMargaret Plocek, MD02/09/202010:33 AM Name Value Range Interpretation Code Description Data Nadira rce(s) Supporting Document(s) ID Date Data Source [id number] 02/06/2020 09:42:30 AM EST [facility] CT LOW DOSE FOR LUNG CANCER SCREENING [id number] RESULTInterpreted by:Silvano Jj MDINDICATION: Lung cancer screening.TECHNIQUE: [...] rce(s) Supporting Document(s) ID Date Data Source [id number] 02/04/2020 10:00:00 AM EST [facility] ([facility]) Name Value Range Interpretation Code Description Data Nadira rce(s) Supporting Document(s) Coronavirus 2019 Nasopharygeal Laboratory test result [facility] ([facility]) This nucleic acid amplification test was developed and its performance characteristics determined by [employer]. Nucleic acid amplification tests include PCR and [...] detected) result in this assay. Performed at: [address] [id number] [employer] Helper: Obdulia Bryan MD, Phone: [phone] Not Detected ID Date Data Source [id number] 02/04/2020 10:00:00 AM [facility] Name Value Range Interpretation Code Description Data Nadira rce(s) Supporting Document(s) SARS coronavirus 2 RNA [facility] This lab was ordered by [facility] and reported by [facility]. ID Date Data Source [id number] 02/04/2020 08:44:00 AM EST [facility] ([facility]) Name Value Range Interpretation Code Description Data Nadira rce(s) Supporting Document(s) Thyrotropin [Units/volume] in Serum or Plasma by Detec tion limit <= 0.05 mIU/L 2.70 uIU/mL 0.36-3.74 [facility] ) ID Date Data Source [id number] 02/04/2020 08:44:00 AM EST [facility] ([facility]) Name Value Range Interpretation Code Description Data Nadira rce(s) Supporting Document(s) Urea nitrogen [Mass/volume] in Serum or Plasma 7 mg/dL 7-18 [facility] ([facility]) Glucose [Mass/volume] in Serum or Plasma 84 mg/dL 74-99 [facility] ([facility]) 100-125 mg/dL PRE-DIABETES/FASTING >126 mg/dL DIABETES/FASTING Sodium [Moles/volume] in Serum or Plasma 144 meq/L 136-145 [facility] ([facility]) Potassium [Moles/volume] in Serum or Plasma 4.1 meq/L 3.5-5.1 [facility] ([facility]) Creatinine 0.7 mg/dL 0.6-1.3 [facility] Calcium [Mass/volume] in Serum or Plasma 9.7 mg/dL 8.5-10.1 [facility] Carbon dioxide, total [Moles/volume] in Serum or Plasma 29 meq/L 21 -32 [facility] ([facility]) Chloride [Moles/volume] in Serum or Plasma 105 meq/L 98-107 [facility] Glomerular filtration rate/1.73 sq M pre dicted among non-blacks [Volume Rate/Area] in Serum or Plasma by Creatinine-based formula (MDRD) Laboratory test result [facility] ([facility] ) Glomerular filtration rate/1.73 sq M pre dicted among blacks [Volume Rate/Area] in Serum or Plasma by Creatinine-based formula (MDRD) Laboratory test result [facility] ([facility]) <content>CHRONIC KIDNEY DISEASE STAGING PER NKF</content>
<content></content>
<content>STAGE I & II GFR >= 60 NORMAL TO MILDLY DECREASED</content>
<content>STAGE III GFR 30-59 MODERATELY DECREASED</content>
<content>STAGE IV GFR 15-29 SEVERELY DECREASED</content>
<content>STAGE V GFR <15 VERY LITTLE GFR LEFT</content>
<content>ESRD GFR <15 ON WEDDING COORDINATOR</content>
<content></content> ID Date Data Source [id number] 02/04/2020 08:44:00 AM EST [facility] ([facility]) Name Value Range Interpretation Code Description Data Nadira rce(s) Supporting Document(s) Leukocytes [#/volume] in Blood by Automated count 6.8 x10*3/UL 4.1-10 .9 [facility] ([facility]) Erythrocytes [#/volume] in Blood by Automated count 4.62 x10*6/UL 4.2 0-6.30 [facility] ([facility]) Hemoglobin [Mass/volume] in Blood 15.0 g/dL 12.0-18.0 [facility] ([facility]) Hematocrit [Volume Fraction] of Blood by Automated count 42.1 % 3 7.0-51.0 [facility] ([facility]) MCH 32.5 pg 26.0-32.0 [facility] MCV 91.2 fL 80.0-97.0 [facility] MCHC 35.7 g/dL 31.0-38.0 [facility] Erythrocyte distribution width [Ratio] by Automated count 12.5 % 11.6-13.7 [facility] ([facility]) Platelets [#/volume] in Blood by Automated count 336 x10*3/UL 140-440 [facility] ([facility]) MPV 8.0 FL 7.8-11.0 [facility]) Mid % 5.7 % 1.7-9.3 [facility] ([facility] Lymph % 24.5 % 10.0-58.5 [facility] ([facility] Lymph # 1.6 x10*3/UL 0.6-4.1 [facility] ([facility]) Mid # 0.5 x10*3/UL 0.1-0.6 [facility] ([facility]) Neut % 69.8 % 37.0-92.0 [facility] Neut # 4.7 x10*3/UL 2.0-7.8 [facility] ([facility]) ID Date Data Source [id number] 12/15/2019 09:08:00 AM EDT [facility] ([facility]) Name Value Range Interpretation Code Description Data Nadira rce(s) Supporting Document(s) Thyroxine (T4) free [Mass/volume] in Serum or Plasma by Dialysis 1. 7 ng/dL [facility] ([facility]) This test was developed and its performa nce characteristics determined by [facility]. It has not been cleared or approved by the Food and Drug Administration. Reference Range: Pubertal Children and Adults: 0.8 - 1.7 Performed at: [facility] [address] [place] [address] [id number] Mold Capper Helper: Betito Walton MD, Phone: [phone] Thyrotropin [Units/volume] in Serum or Plasma by Detec tion limit <= 0.05 mIU/L 7.470 uIU/ML 0.358-3.740 [facility] ([facility]) Thyroxine (T4) free [Mass/volume] in Serum or Plasma 1.75 ng/dL 0.76- 1.46 [facility] ([facility]) Procedure Social History Code Duration Value Status Description Data Source(s ) Smoking 02/04/2021 12:00:00 AM EDT Patient is a former smoker completed Patient is a former smoker [facility] ([facility]) Smoking 09/27/2020 12:00:00 AM EDT Patient is a former smoker completed Patient is a former smoker [facility] ([facility]) Alcohol intake 02/09/2020 12:00:00 AM EST Never completed [facility] Smoking 02/09/2020 12:00:00 AM EST Former smoker completed Former smoker [facility] Vital Signs ID Date Data Source [...] (BMI) [Ratio] 17.7 kg/m2 17.7 k g/m2 [facility] ([facility]) [place] body weight 115 [lb_av] 115 [lb_av] [facility] T ([facility]) Body weight 45.360 kg 45.360 kg [facility] ([facility]) Body surface area Derived from formula 1.44 m2 1.44 m2 [facility] ([facility]) Systolic blood pressure 102 mm[Hg] 102 mm[Hg] [facility] Diastolic blood pressure 80 mm[Hg] 80 mm[Hg] [facility] ([facility]) Heart rate 126 /min 126 /min [facility] ([facility]) Oxygen saturation in Arterial blood by Pulse oximetry 97 % 97 % [facility] ([facility]) Body height 63 [in_i] 63 [in_i] [facility] ([facility]) 5'3" Body weight 100.00 [lb_av] 100.00 [lb_av] [facility] T ([facility]) [place] body weight 115 [lb_av] 115 [lb_av] [facility] ([facility]) Body weight 45.814 kg 45.814 kg [facility] ([facility]) Body height 63 [in_i] 63 [in_i] [facility] ([facility]) 5'3" Body surface area Derived from formula 1.45 m2 1.45 m2 [facility] ([facility]) Body weight 101.00 [lb_av] 101.00 [lb_av] [facility] ([facility]) Body mass index (BMI) [Ratio] 17.9 kg/m2 17.9 k g/m2 [facility] ([facility]) Oxygen saturation in Arterial blood by Pulse oximetry 97 % 97 % [facility] ([facility], ) Systolic blood pressure 122 mm[Hg] 122 mm[Hg] M [facility], ) Diastolic blood pressure 88 mm[Hg] 88 mm[Hg] [facility] ([facility], ) Heart rate 95 /min 95 /min [facility] ([facility], ) Systolic blood pressure 124 mm[Hg] 124 mm[Hg] M [facility] ([facility] ) Diastolic blood pressure 70 mm[Hg] 70 mm[Hg] [facility] ([facility] ) Heart rate 94 /min 94 /min [facility] ([facility] ) Body weight 110.31 [lb_av] 110.31 [lb_av] [facility] T ([facility]) Oxygen saturation in Arterial blood by Pulse oximetry 98 % 98 % [facility] ([facility]) Systolic blood pressure 103 mm[Hg] 103 mm[Hg] M [facility]) Diastolic blood pressure 73 mm[Hg] 73 mm[Hg] [facility] ([facility], [facility]) Heart rate 94 /min 94 /min [facility] ([facility], [facility]) Respiratory rate 20 /min 20 /min [facility] ( [facility], [facility]) Oxygen saturation in Arterial blood by Pulse oximetry 95 % 95 % [facility] ([facility], [facility]) Body temperature 98.2 [degF] 98.2 [degF] [facility] ([facility], [facility]) Body weight 120.00 [lb_av] 120.00 [lb_av] [facility] T ([facility], [facility]) Body height 64 [in_i] 64 [in_i] [facility] ([facility], [facility]) 5'4" Body mass index (BMI) [Ratio] 20.6 kg/m2 20.6 k g/m2 [facility] ([facility], [facility]) Body temperature 96.6 [degF] 96.6 [degF] [facility] ([facility], [facility]) Body weight 120.00 [lb_av] 120.00 [lb_av] [facility] T ([facility], [facility]) Systolic blood pressure 116 mm[Hg] 116 mm[Hg] M [facility] ([facility], [facility]) Diastolic blood pressure 80 mm[Hg] 80 mm[Hg] [facility] ([facility], [facility]) Heart rate 85 /min 85 /min [facility] ([facility], [facility]) Respiratory rate 14 /min 14 /min [facility] ( [facility], [facility]) Oxygen saturation in Arterial blood by Pulse oximetry 98 % 98 % [facility] ([facility], [facility]) Body height 64 [in_i] 64 [in_i] [facility] ([facility], [facility]) 5'4" Body mass index (BMI) [Ratio] 20.6 kg/m2 20.6 k g/m2 [facility] ([facility], [facility]) Diastolic blood pressure 60 mm[Hg] 60 mm[Hg] [facility] ([facility] ) Heart rate 76 /min 76 /min [facility] ([facility] ) Body weight 124.50 [lb_av] 124.50 [lb_av] [facility] ([facility] ) Body mass index (BMI) [Ratio] 21.4 kg/m2 21.4 k g/m2 [facility] ([facility] ) Systolic blood pressure 90 mm[Hg] 90 mm[Hg] M [facility] ([facility] ) Body temperature 97.4 [degF] 97.4 [degF] [facility] ([facility] ) Body height 64 [in_i] 64 [in_i] [facility] ([facility]) 5'4" Heart rate 98 /min 98 /min [facility] ([facility]) Body mass index (BMI) [Ratio] 23.9 kg/m2 23.9 k g/m2 [facility] ([facility]) Diastolic blood pressure 62 mm[Hg] 62 mm[Hg] [facility] ([facility]) Body height 62.5 [in_i] 62.5 [in_i] [facility] ([facility]) 5'2.50" Systolic blood pressure 94 mm[Hg] 94 mm[Hg] M [facility] ([facility]) Body weight 133.00 [lb_av] 133.00 [lb_av] [facility] T ([facility]) Oxygen saturation in Arterial blood by Pulse oximetry 93 % 93 % [facility] ([facility]) Diastolic blood pressure 84 mm[Hg] 84 mm[Hg] [facility] ([facility], [facility]) Systolic blood pressure 127 mm[Hg] 127 mm[Hg] M [facility] ([facility], [facility]) Heart rate 83 /min 83 /min [facility] ([facility]) Respiratory rate 13 /min 13 /min [facility] ( [facility], [facility]) Oxygen saturation in Arterial blood by Pulse oximetry 98 % 98 % [facility] ([facility], [facility]) Body temperature 97.8 [degF] 97.8 [degF] [facility] ([facility], [facility]) Body weight 141.00 [lb_av] 141.00 [lb_av] [facility] T ([facility], [facility]) Body height 64 [in_i] 64 [in_i] [facility] ([facility]) 5'4" Body mass index (BMI) [Ratio] 24.2 kg/m2 24.2 k g/m2 [facility] ([facility]) Systolic blood pressure 110 mm[Hg] 110 mm[Hg] [facility] ) Diastolic blood pressure 70 mm[Hg] 70 mm[Hg] [facility] ([facility] ) Heart rate 81 /min 81 /min [facility] ([facility] ) Body temperature 97.3 [degF] 97.3 [degF] [facility] ([facility] Body height 64 [in_i] 64 [in_i] [facility] ([facility] ) 5'4" Body weight 141.25 [lb_av] 141.25 [lb_av] [facility] T ([facility] ) Body mass index (BMI) [Ratio] 24.2 kg/m2 24.2 k g/m2 [facility] ([facility] ) Oxygen saturation in Arterial blood by Pulse oximetry 98 % 98 % [facility] ([facility] ) Systolic blood pressure 113 mm[Hg] 113 mm[Hg] [...] (applies t o non-numeric results) 119 mm[Hg] [facility] Diastolic blood pressure 74 mm[Hg] Normal (applies to non-numeric results) 74 mm[Hg] [facility] Heart rate 98 min Normal (applies to non-numeric resul ts) 98 min [facility] Deprecated Oxygen saturation in Capillary blood by Oximetry 97 % Normal (applies to non-numeric results) 97 % [facility] Respiratory rate 18 min Normal (applies to non-numeric results) 18 min [facility] Body temperature 36.9 yareli Normal (applies to non-numeric results) 36.9 yareli [facility] Body height 159.7152 cm Normal (applies to non-numeric res ults) 159.7152 cm [facility] Body mass index (BMI) [Ratio] 24.76 kg/m2 No rmal (applies to non-numeric results) 24.76 kg/m2 [facility] Body weight Measured 63.4 kg Normal (applies to non-num erik results) 63.4 kg [facility] Systolic blood pressure 146 mm[Hg] 146 mm[Hg] [...] Systolic blood pressure 115 mm[Hg] 115 mm[Hg] [facility] Diastolic blood pressure 73 mm[Hg] 73 mm[Hg] [facility] Respiratory rate 16 /min 16 /min [facility] Oxygen saturation in Arterial blood by Pulse oximetry 100 % 100 % [facility] Body temperature 36.94 Yareli 36.94 Yareli [facility] Heart rate 93 /min 93 /min [facility] Body height 162.6 cm 162.6 cm [facility] Body weight 66.679 kg 66.679 kg [facility] Body mass index (BMI) [Ratio] 25.23 kg/m2 25.23 kg/m2 [facility] Diastolic blood pressure 78 mm[Hg] 78 mm[Hg] [facility] ([facility]) LT Arm Body height 62.5 [in_i] 62.5 [in_i] [facility] ([facility]) 5'2.50" Body weight 147.00 [lb_av] 147.00 [lb_av] [facility] T ([facility]) Body mass index (BMI) [Ratio] 26.5 kg/m2 26.5 k g/m2 [facility] ([facility]) Heart rate 88 /min 88 /min [facility] ([facility]) Systolic blood pressure 122 mm[Hg] 122 mm[Hg] M [facility] ([facility]) LT Arm Body temperature 98.4 [degF] 98.4 [degF] [facility] ([facility]) Systolic blood pressure 143 mm[Hg] 143 mm[Hg] M [facility] ([facility] Heart rate 92 /min 92 /min [facility] ([facility]) Body mass index (BMI) [Ratio] 25.9 kg/m2 25.9 k g/m2 [facility] ([facility]) Oxygen saturation in Arterial blood by Pulse oximetry 96 % 96 % [facility] ([facility]) Systolic blood pressure 118 mm[Hg] 118 mm[Hg] M [facility] ([facility]) Diastolic blood pressure 68 mm[Hg] 68 mm[Hg] [facility] ([facility]) Body height 64 [in_i] 64 [in_i] [facility] ([facility]) 5'4" Body weight 151.12 [lb_av] 151.12 [lb_av] [facility] T ([facility]) ID Date Data Source [id number] 01/22/2020 12:50:54 PM EDT [facility] Name Value Range Interpretation Code Description Data Source(s) WEIGHT RECORDED 152 lb 152 lb [facility] Body height Measured 63 in 63 in [facility] WEIGHT RECORDED 152 lb 152 lb [facility] Body height Measured 63 in 63 in [facility] Patient Treatment Plan of Care Planned Activity Planned Date Details Description Data Source (s) 30 ACTUAT umeclidinium 0.0625 MG/ACTUAT / vilanterol 0.025 MG/ACTUAT Dry Powder Inhaler [Anoro] 11/10/2020 12:00:00 AM EDT [facility] 30 ACTUAT umeclidinium 0.0625 MG/ACTUAT / vilanterol 0.025 MG/ACTUAT Dry Powder Inhaler [Anoro] 03/15/2020 12:00:00 AM JASON [facility]
--- NOTE | 2021-02-11 17:06 | HPEPDOC ---
General Date of Admission 02/11/21 Date of Service: Feb 11, 2021 Chief Complaint The patient is a 60-year-old female admitted with a reason for visit of Blurred Vision/Insomnia. Source: Patient, RN/MD History of Present Illness 60-year-old female with past medical history of colon cancer status post colectomy and chemotherapy, anxiety, dysphagia, chronic diarrhea, hypertension, GERD presented to the emergency room with 6 days history of blurriness of vision affecting both eyes and 1 month history of tremors of the left leg. The patient uses glasses which she has been using for 5 to 6 years but then the sudden change of vision happened 6 days ago. Also has some associated headache. She reports that she has difficulty in seeing the phone screen and to see the TV she has to stand right in front of the screen. As I was examining her she said that she could see my face outline but she could not distinguish my features.. She also reports that she has been very restless for the past week unable to sit in 1 place unable to lay down has not been able to sleep at night. She also complains of chronic diarrhea 4-5 times a day liquid brown stools which has been ongoing since her colon surgery. She also complains of right lower quadrant abdominal pain. Evaluation in the ED with a CT head without contrast showed an infarction in the right occipital lobe. Lab work was significant for an elevated lipase of 921. So a CT abdomen pelvis was done. Abdomen pelvis CT shows fatty infiltration of the liver and enlargement of left hepatic lobe suggestive of chronic liver disease spleen is not enlarged status post cholecystectomy kidneys are normal the pancreatic duct is mildly prominent but appears unchanged common bile duct in the pancreatic head is normal for postcholecystectomy patient no stones identified. No perforation or abscess no abdominal aortic aneurysm no pathologic sized lymphadenopathy small bowel loop shows nonspecific wall thickening proximally but no dilatation the colon shows some wall enhancement and anastomotic suture line in the pelvis from sigmoid resection and reanastomosis suggestion of skip colitis no ascites Home Medications Scheduled Atenolol (Atenolol) 25 Mg Tablet, 25 MG PO DAILY, (Reported) Diphenoxylate HCl/Atropine (Diphenoxylate-Atrop 2.5-0.025) 1 Each Tablet, 1 TAB PO BID, (Reported) Dronabinol (Dronabinol) 5 Mg Capsule, 5 MG PO BID, (Reported) Gabapentin (Gabapentin) 300 Mg Capsule, 300 MG PO DAILY, (Reported) Levothyroxine Sodium (Levothyroxine Sodium) 125 Mcg Tablet, 125 MCG PO QAM, (Reported) Magnesium Oxide (Magnesium Oxide) 400 Mg Tablet, 1 TAB PO DAILY for constipation Potassium Chloride (K-Tab ER) 10 Meq Tablet.er, 2 TAB PO DAILY Prochlorperazine Maleate (Prochlorperazine Maleate) 10 Mg Tablet, 10 MG PO QHS, (Reported) Umeclidinium Brm/Vilanterol Tr (Anoro Ellipta 62.5-25 Mcg INH) 1 Each Blst.w.dev, 1 PUFF INH DAILY, (Reported) Scheduled PRN Lorazepam (Ativan) 0.5 Mg Tablet, 0.5 MG PO DAILY PRN for ANXIETY/AGITATION, (Reported) Ondansetron HCl (Ondansetron HCl) 4 Mg Tablet, 4 MG PO Q6H PRN for NAUSEA, (Reported) Allergies Coded Allergies: No Known Allergies (Verified , 11/19/17) Past Medical History Medical History Colon cancer with Cruz syn S/p colectomy and ileosigmoid anastomosis March 05, 2020 status post chemotherapy finished in October 2020 Graves disease. COPD. Anxiety. 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 Cholecystectomy. Appendectomy. Colectomy. Family History Family history of Cruz syndrome. Mother had colon cancer. Father had lung cancer. Sister had stomach and colon cancer. Brother had prostate cancer. Another brother had colon cancer. Social History * Smoker: former Smoker Alcohol: Denies Drugs: denies A-FIB/CHADSVASC A-FIB History Current/History of A-Fib/PAF?: No Review of Systems Constitutional: Reports: Weight Loss; Denies: Chills, Fever, Night Sweats Eyes: Reports: Vision change (Blurriness of vision in both eyes); Denies: Pain, Conjunctivae inflammation, Eyelid inflammation, Redness, Other ENT: Reports: Head Aches, Dysphagia; Denies: Ear Pain Skin: Denies: Rash, Lesions, Breakdown Pulmonary: Denies: Dyspnea, Cough Cardiovascular: Denies: Chest Pain, Palpitations, Orthopnea, Paroxysmal Noc. Dyspnea, Lt Headedness Gastrointestinal: Reports: Abdominal Pain (Right iliac fossa), Diarrhea (Chronic); Denies: Nausea, Vomiting Genitourinary: Denies: Dysuria, Frequency, Incontinence, Retention Hematologic: Denies: Bruising, Bleeding Excessively Musculoskeletal: Denies: Neck Pain, Back Pain, Joint Pain, Muscle Pain, Spasms Physical Examination General Exam: Positive: Alert, Cooperative, No Acute Distress Eye Exam: Positive: PERRLA, Conjunctiva & lids normal, EOMI; Negative: Sclera icteric ENT Exam: Positive: Atraumatic, Mucous membr. moist/pink, Pharynx Normal, Other ENT (Bitemporal wasting) Neck Exam: Positive: Supple; Negative: JVD, thyromegaly Chest Exam: Positive: Clear to auscultation, Normal air movement Heart Exam: Positive: Rate Normal, Regular Rhythm, Normal S1, Normal S2; Negative: Murmurs, Rubs Abdomen Exam: Positive: Normal bowel sounds, Soft, Tenderness (Right iliac fossa); Negative: Hepatospenomegaly Extremity Exam: Positive: Other (Wasting of small muscles of hands and feet); Negative: Clubbing, Cyanosis, Edema Neuro Exam: Positive: Normal Speech, Normal Tone Psych Exam: Positive: Memory Intact, Oriented x 3 Vital Signs Vital Signs Date Time Temp Pulse Resp B/P (MAP) Pulse Ox O2 Delivery O2 Flow Rate FiO2 02/11/21 11:34 70 99 02/11/21 11:31 134/79 (97) 02/11/21 09:35 96.9 18 Laboratory Data Labs 24H Laboratory Tests 2 02/11/21 11:16: Immature Granulocyte % (Auto) 0.3, Neutrophils (%) (Auto) 77.7H, Lymphocytes (%) (Auto) 11.3L, Monocytes (%) (Auto) 9.9H, Eosinophils (%) (Auto) 0.1, Basophils (%) (Auto) 0.7, Neutrophils # (Auto) 7.0, Lymphocytes # (Auto) 1.0L, Monocytes # (Auto) 0.9H, Eosinophils # (Auto) 0.0, Basophils # (Auto) 0.1, Nucleated Red Blood Cells % (auto) 0.0, Anion Gap 6L, Glomerular Filtration Rate > 60.0, Lactic Acid Level 0.9, Calcium Level 9.5, Total Bilirubin 0.6, Direct Bilirubin 0.2, Aspartate Amino Transf (AST/SGOT) 22, Alanine Aminotransferase (ALT/SGPT) 22, Alkaline Phosphatase 138H, Ammonia 17, Total Creatine Kinase 28, Creatine Kinase MB < 1.0, Creatine Kinase MB Relative Index 3.57, Troponin I < 0.02, Total Protein 5.9L, Albumin 2.9L, Albumin/Globulin Ratio 1.0L, Lipase 931H, Thyroid Stimulating Hormone (TSH) 0.155L, Free Thyroxine 1.88H, Salicylates Level 1.8L, Acetaminophen Level 3.7L, Ethyl Alcohol Level < 0.003 CBC/BMP Laboratory Tests 02/11/21 11:16 Microbiology Microbiology 02/11/21 Blood Culture, Received Pending 02/11/21 Respiratory Virus Panel (PCR) ([facility]) - Final, Complete 02/11/21 Blood Culture, Received Pending Assessment/Plan 60-year-old female with past medical history of colon cancer status post colectomy and chemotherapy, anxiety, dysphagia, chronic diarrhea, hypertension, GERD presented to the emergency room with 6 days history of blurriness of vision affecting both eyes and 1 month history of tremors of the left leg. The patient uses glasses which she has been using for 5 to 6 years but then the sudden change of vision happened 6 days ago. Also has some associated headache. She reports that she has difficulty in seeing the phone screen and to see the TV she has to stand right in front of the screen. As I was examining her she said that she could see my face outline but she could not distinguish my features.. She also reports that she has been very restless for the past week unable to sit in 1 place unable to lay down has not been able to sleep at night. She also complains of chronic diarrhea 4-5 times a day liquid brown stools which has been ongoing since her colon surgery. She also complains of right lower quadrant abdominal pain. Evaluation in the ED with a CT head without contrast showed an infarction in the right occipital lobe. Acute nonhemorrhagic CVA CT head showed infarction in the right occipital lobe We will get MRI and MRA of brain We will get carotid Doppler Monitor on telemetry We will give aspirin, low-dose statin Will hold atenolol to allow for permissive hypertension Elevated lipase No signs of pancreatic inflammation on CT abdomen pelvis Abdomen benign. Etiology unclear at this time. 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
--- NOTE | 2021-02-11 19:02 | REPVR ---
PROCEDURE INFORMATION: Exam: MRA Head Without Contrast; Arteriography Exam date and time: 02/11/2021 6:34 PM Age: 60 years old Clinical indication: Weakness; Additional info: CVA TECHNIQUE: Imaging protocol: Magnetic resonance angiography head without contrast. Exam focused on the arteries. COMPARISON: CT Head without contrast 02/11/2021 9:53 AM FINDINGS: Limitations: Patient motion. ANTERIOR CIRCULATION: Right internal carotid artery: Intracranial segment is patent with no significant stenosis. No aneurysm. Right middle cerebral artery: No occlusion or significant stenosis. No aneurysm. Right anterior cerebral artery: Hypoplastic right A1 segment. Left internal carotid artery: Intracranial segment is patent with no significant stenosis. No aneurysm. Left middle cerebral artery: No occlusion or significant stenosis. No aneurysm. Left anterior cerebral artery: No occlusion or significant stenosis. No aneurysm. POSTERIOR CIRCULATION: Right vertebral artery: No occlusion or significant stenosis. No aneurysm. Left vertebral artery: No occlusion or significant stenosis. No aneurysm. Basilar artery: No occlusion or significant stenosis. No aneurysm. Right posterior cerebral artery: origin of the right posterior cerebral artery. Left posterior cerebral artery: origin of the left posterior cerebral artery. IMPRESSION: No hemodynamically significant stenosis or large vessel occlusion. Electronically signed by: Reji Prescott On 02/11/2021 19:02:29 PM
--- NOTE | 2021-02-11 19:03 | REPVR ---
PROCEDURE INFORMATION: Exam: MR Head Without Contrast Exam date and time: 02/11/2021 6:34 PM Age: 60 years old Clinical indication: Altered mental status/memory loss; Confusion or disorientation; Additional info: H/o colon cancer with new neurological symptoms. TECHNIQUE: Imaging protocol: MR of the head without contrast. COMPARISON: CT Head without contrast 02/11/2021 9:53 AM FINDINGS: Major vascular flow voids at the skull base are preserved. No extra-axial fluid collection. No hydrocephalus. No midline shift or intracranial mass effect. Nonspecific white matter gliosis, probable chronic microvascular ischemia. No cerebral edema or pathologic susceptibility. No diffusion restriction. Mild paranasal sinus disease. No significant mastoid effusion. IMPRESSION: No acute intracranial abnormality. Electronically signed by: Reji Prescott On 02/11/2021 19:02:46 PM
--- NOTE | 2021-02-11 19:03 | REP ---
INDICATION: stroke COMPARISON: None. TECHNIQUE: Real-time ultrasound evaluation and duplex Doppler interrogation of the extracranial carotid vasculature is performed. FINDINGS: Antegrade flow is observed in both vertebral arteries. Right carotid: The right common carotid artery shows diffuse intimal thickening but is otherwise unremarkable. There ismild mixed plaquing in the right carotid bulb and proximal ICA on two-dimensional scanning. Color flow and spectral Doppler interrogation are unremarkable on the right. Velocity chart right carotid: Right CCA PSV: 89 cm/S Right ICA PSV: 56 cm/S Right ICA EDV: 22 cm/S Right ECA PSV: 46 cm/S Right ICA/CCA ratio: 0.6 Left carotid: The left common carotid artery shows diffuse intimal thickening but is otherwise unremarkable. There is mild mixed plaquing in the left carotid bulb and proximal ICA on two-dimensional scanning. Color flow and spectral Doppler interrogation are unremarkable on the left. Velocity chart left carotid: Left CCA PSV: 83 cm/S Left ICA PSV: 63 cm/S Left ICA EDV: 26 cm/S Left ECA PSV: 59 cm/S Left ICA/CCA ratio: 0.8 IMPRESSION: Less than 50% category narrowing in the right internal carotid artery by Doppler velocity criteria. Less than 50% category narrowing in the left ICA by Doppler velocity criteria. <Electronically signed by Wu Sutton > 02/11/21 [id number]
[2021-02-11] MEDS: GABAPENTIN 300 MG CAP PO SCH (19:34)
[2021-02-11] MEDS: POTASSIUM CHLORIDE 10MEQ SR TABLET PO SCH (19:35)
[2021-02-11] MEDS: MAGNESIUM OXIDE 400MG TAB (MAG-OX) PO SCH (19:35)
[2021-02-11] MEDS ORDERED: FORMOTEROL FUMARATE 20 MCG/2 ML INHALATION SOLUTION (PERFOROMIST) INH SCH (20:00)
[2021-02-11] MEDS: SALMETEROL DISKUS 50MCG INHALER (SEREVENT) INH SCH (20:00)
[2021-02-11 20:04] LABS: AMPHETAMINES LEVEL URINE NEGATIVE (NEGATIVE); BARBITURATES URINE NEGATIVE (NEGATIVE); BENZODIAZEPINES URINE NEGATIVE (NEGATIVE); CANNABINOIDS URINE POSITIVE (NEGATIVE); COCAINE METABOLITE URINE NEGATIVE (NEGATIVE); METHADONE URINE NEGATIVE (NEGATIVE); OPIATES URINE NEGATIVE (NEGATIVE); PHENCYCLIDINE URINE NEGATIVE (NEGATIVE)
[2021-02-11 21:13] VITALS: BP 132/55
[2021-02-11] MEDS: ATORVASTATIN 20 MG TAB PO SCH (21:51)
[2021-02-11] MEDS: DRONABINOL 2.5 MG CAP (MARINOL) PO SCH (21:51)
[2021-02-11] MEDS: LOMOTIL 2.5MG/0.025MG TABLET PO SCH (21:51)
[2021-02-12 06:00] VITALS: BP 106/67
[2021-02-12] MEDS ORDERED: LEVOTHYROXINE 125MCG TABLET (0.125MG) PO SCH (06:00)
[2021-02-12 06:41] LABS: BASO # 0.1 10^3/uL (0.0-0.2); EOS # 0.1 10^3/uL (0.0-0.5); HEMATOCRIT 37.3 % (36.0-47.0); HEMOGLOBIN 12.1 g/dl (12.0-15.5); LYMPH # 1.5 10^3/uL (1.5-5.0); LYMPH % 29.9 % (24.0-44.0); MEAN CORPUSCULAR HEMOGLOBIN 32.3 pg (27.0-33.0); MEAN CORPUSCULAR HGB CONC 32.4 g/dl (32.0-36.5); MEAN CORPUSCULAR VOLUME 99.5 fl (80.0-96.0); MONO # 0.8 10^3/uL (0.0-0.8); MONO % 15.9 % (2.0-8.0); NEUTROPHILS # 2.6 10^3/uL (1.5-8.5); NEUTROPHILS % 51.6 % (36.0-66.0); PLATELET COUNT, AUTOMATED 259 10^3/uL (150-450); RED BLOOD COUNT 3.75 10^6/uL (4.00-5.40); WHITE BLOOD COUNT 5.1 10^3/uL (4.0-10.0)
--- NOTE | 2021-02-12 07:01 | ECGEPIP ---
[facility] - ED Test Date: 2021-02-11 Pat Name: MARILYN FLOYD Department: Room: - Gender: Female Budget Assistant: BANARNAUD : [id number] Requested By: JERAMY Franco Order Number: [id number] Reading MD: Tobias Cage Measurements Intervals [place] Rate: 73 P: 85 MA: 150 QRS: 70 QRSD: 80 T: 68 QT: 374 QTc: 412 Interpretive Statements Normal sinus rhythm INCOMPLETE RIGHT BUNDLE BRANCH BLOCK NONSPECIFIC T WAVE ABNORMALITY(S) SIMILAR TO 08/16/20 Electronically Signed on 02-12-2021 7:01:24 EST by Tobias Cage
[2021-02-12 07:07] LABS: BLOOD UREA NITROGEN 5 MG/DL (7-18); CALCIUM LEVEL 9.2 MG/DL (8.5-10.1); CARBON DIOXIDE LEVEL 27 MEQ/L (21-32); CHLORIDE LEVEL 108 MEQ/L (98-107); CREATININE FOR GFR 0.41 MG/DL (0.55-1.30); GLOMERULAR FILTRATION RATE > 60.0 (>51); GLUCOSE, FASTING 84 MG/DL (70-100); POTASSIUM SERUM 3.7 MEQ/L (3.5-5.1); SODIUM LEVEL 142 MEQ/L (136-145)
[2021-02-12] MEDS: SALMETEROL DISKUS 50MCG INHALER (SEREVENT) INH SCH ×2 (07:20→20:00)
[2021-02-12] MEDS: TIOTROPIUM INHALER/CAPSULE (SPIRIVA) INH SCH (07:20)
[2021-02-12] MEDS: ASPIRIN 81MG ENTERIC TABLET PO SCH (09:10)
[2021-02-12] MEDS: LOMOTIL 2.5MG/0.025MG TABLET PO SCH (09:10)
[2021-02-12] MEDS: MAGNESIUM OXIDE 400MG TAB (MAG-OX) PO SCH (09:11)
[2021-02-12] MEDS: POTASSIUM CHLORIDE 10MEQ SR TABLET PO SCH (09:11)
[2021-02-12] MEDS: DRONABINOL 2.5 MG CAP (MARINOL) PO SCH ×2 (09:11→20:24)
[2021-02-12] MEDS: GABAPENTIN 300 MG CAP PO SCH ×2 (09:12→20:24)
[2021-02-12] MEDS: ENOXAPARIN 40MG/0.4ML SYRINGE (J1650 PER 10MG) SC SCH (09:12)
[2021-02-12] MEDS ORDERED: LOPERAMIDE 2 MG CAPLET PO PRN (12:50)
[2021-02-12 13:04] LABS: LIPASE 120 U/L (73-393)
[2021-02-12] MEDS ORDERED: ONDANSETRON 4MG/2ML VIAL IV PRN (13:45)
[2021-02-12 14:00] VITALS: BP 104/68
--- NOTE | 2021-02-12 14:27 | IPNPDOC ---
Subjective Date Seen The patient was seen on 02/12/21. Subjective Chief Complaint/HPI Patient complains of being unable to sleep. Complains of feeling very anxious and nauseous. She continues to have blurred vision. Also complains of shaking of left leg. She also complains of numbness and tingling of both feet and hands. Objective Physical Examination General Exam: Positive: Alert, Cooperative, No Acute Distress Eye Exam: Positive: PERRLA, Conjunctiva & lids normal, EOMI; Negative: Sclera icteric ENT Exam: Positive: Atraumatic, Mucous membr. moist/pink, Pharynx Normal, Other ENT (Bitemporal wasting) Neck Exam: Positive: Supple; Negative: JVD, thyromegaly Chest Exam: Positive: Clear to auscultation, Normal air movement Heart Exam: Positive: Rate Normal, Regular Rhythm, Normal S1, Normal S2; Negative: Murmurs, Rubs Abdomen Exam: Positive: Normal bowel sounds, Soft, Tenderness (Right iliac fossa); Negative: Hepatospenomegaly Extremity Exam: Positive: Other (Wasting of small muscles of hands and feet); Negative: Clubbing, Cyanosis, Edema Neuro Exam: Positive: Normal Speech, Normal Tone Psych Exam: Positive: Memory Intact, Oriented x 3 Assessment /Plan Assessment 60-year-old female with past medical history of colon cancer status post colectomy and chemotherapy, anxiety, dysphagia, chronic diarrhea, hypertension, GERD presented to the emergency room with 6 days history of blurriness of vision affecting both eyes and 1 month history of tremors of the left leg. The patient uses glasses which she has been using for 5 to 6 years but then the sudden change of vision happened 6 days ago. Also has some associated headache. She reports that she has difficulty in seeing the phone screen and to see the TV she has to stand right in front of the screen. As I was examining her she said that she could see my face outline but she could not distinguish my features.. She also reports that she has been very restless for the past week unable to sit in 1 place unable to lay down has not been able to sleep at night. She also complains of chronic diarrhea 4-5 times a day liquid brown stools which has been ongoing since her colon surgery. She also complains of right lower quadrant abdominal pain. Evaluation in the ED with a CT head without contrast showed an infarction in the right occipital lobe. MRI and MRA brain negative for any acute infarction or mass or midline shift CVA ruled out MRI did not show any acute stroke Bilateral blurred vision She has been taking Lomotil which is atropine in it which could cause blurriness of vision I have stopped that and replaced it with Imodium which only has loperamide. Restlessness/anxiety/restless legs/tremor of left leg/neuropathy We will give Atarax as needed. Patient takes Ativan at home Have consulted neurology Elevated lipase No signs of pancreatic inflammation on CT abdomen pelvis Abdomen benign. Now normalized Colon cancer status post colectomy in ileosigmoid anastomosis status post chemotherapy Has chronic diarrhea with hypokalemia and hypomagnesemia Continue with magnesium and potassium supplements Continue with loperamide Protein calorie malnutrition severe Has a BMI of 17 Albumin of 2.6 There is bitemporal wasting and wasting of small muscles of hands and feet COPD/emphysema Stable We will replace Anoro with Spiriva and formoterol Neuropathy Likely chemotherapy related Continue on gabapentin. Dose increased History of Graves' disease status post radioactive iodine treatment Now has secondary hypothyroidism Continue with Synthroid. TSH is low and T4 elevated so will reduce dose of Synthroid. Plan/VTE VTE Prophylaxis Ordered?: Yes VS, I&O, 24H, Fishbone Vital Signs/I&O Vital Signs Date Time Temp Pulse Resp B/P (MAP) Pulse Ox O2 Delivery O2 Flow Rate FiO2 02/12/21 14:00 98.2 105 20 104/68 (80) 94 Room Air I&O- Last 24 Hours up to 6 AM 02/12/21 05:59 Intake Total 0 ml Output Total 0 ml Balance 0 ml Laboratory Data 24H LABS Laboratory Tests 2 02/11/21 19:26: Urine Color YELLOW, Urine Appearance CLEAR, Urine pH 7.0, Urine Specific [place] >1.060H, Urine Protein NEGATIVE, Urine Glucose (UA) NEGATIVE, Urine Ketones NEGATIVE, Urine Blood NEGATIVE, Urine Nitrite NEGATIVE, Urine Bilirubin NEGATIVE, Urine Urobilinogen 0.2, Urine Leukocyte Esterase NEGATIVE, Urine WBC (Auto) 2, Urine RBC (Auto) 1, Urine Hyaline Casts (Auto) 0, Urine Bacteria (Auto) NEGATIVE, Urine Squamous Epithelial Cells 2, Urine Sperm (Auto) , Urine Opiates Screen NEGATIVE, Urine Methadone Screen NEGATIVE, Urine Barbiturates Screen NEGATIVE, Urine Phencyclidine Screen NEGATIVE, Urine Amphetamines Screen NEGATIVE, Urine Benzodiazepines Screen NEGATIVE, Urine Cocaine Metabolite Screen NEGATIVE, Urine Cannabinoids Screen POSITIVEH 02/12/21 06:17: Immature Granulocyte % (Auto) 0.6, Neutrophils (%) (Auto) 51.6, Lymphocytes (%) (Auto) 29.9, Monocytes (%) (Auto) 15.9H, Eosinophils (%) (Auto) 1.0, Basophils (%) (Auto) 1.0, Neutrophils # (Auto) 2.6, Lymphocytes # (Auto) 1.5, Monocytes # (Auto) 0.8, Eosinophils # (Auto) 0.1, Basophils # (Auto) 0.1, Nucleated Red Blood Cells % (auto) 0.0, Anion Gap 7L, Glomerular Filtration Rate > 60.0, Calcium Level 9.2, Lipase 120 CBC/BMP Laboratory Tests 02/12/21 06:17 Microbiology Microbiology 02/11/21 Blood Culture - Preliminary, Resulted No growth after 24 hours . All specim... 02/11/21 Respiratory Virus Panel (PCR) ([facility]) - Final, Complete 02/11/21 Blood Culture - Preliminary, Resulted No growth after 24 hours . All specim... Carmelita Wilson MD Feb 12, 2021 14:26
[2021-02-12] MEDS ORDERED: hydrOXYzine 10 MG TAB PO ONE (15:00)
[2021-02-12] MEDS: ATORVASTATIN 20 MG TAB PO SCH (20:24)
[2021-02-12] MEDS ORDERED: traZODone 25MG PER 1/2 TABLET PO SCH (21:00)
[2021-02-12 21:30] VITALS: BP 106/69
[2021-02-12] MEDS ORDERED: ACETAMINOPHEN TAB 650MG DOSE (2X325MG) PO PRN (21:55)
[2021-02-12] MEDS ORDERED: PERCOCET 5MG/325MG TAB PO PRN (21:55)
[2021-02-13 06:00] VITALS: BP 104/63
[2021-02-13] MEDS ORDERED: LEVOTHYROXINE 100MCG TABLET (0.1MG) PO SCH (06:00)
[2021-02-13 06:35] LABS: BASO % 0.7 % (0.0-1.0); EOS # 0.1 10^3/uL (0.0-0.5); EOS % 1.7 % (0.0-3.0); HEMATOCRIT 36.9 % (36.0-47.0); HEMOGLOBIN 11.7 g/dl (12.0-15.5); LYMPH # 1.2 10^3/uL (1.5-5.0); LYMPH % 29.4 % (24.0-44.0); MEAN CORPUSCULAR HEMOGLOBIN 31.6 pg (27.0-33.0); MEAN CORPUSCULAR HGB CONC 31.7 g/dl (32.0-36.5); MEAN CORPUSCULAR VOLUME 99.7 fl (80.0-96.0); MONO # 0.7 10^3/uL (0.0-0.8); MONO % 17.5 % (2.0-8.0); NEUTROPHILS % 50.5 % (36.0-66.0); PLATELET COUNT, AUTOMATED 218 10^3/uL (150-450); WHITE BLOOD COUNT 4.1 10^3/uL (4.0-10.0)
[2021-02-13 06:53] LABS: BLOOD UREA NITROGEN 8 MG/DL (7-18); CALCIUM LEVEL 8.8 MG/DL (8.5-10.1); CARBON DIOXIDE LEVEL 29 MEQ/L (21-32); CHLORIDE LEVEL 107 MEQ/L (98-107); CREATININE FOR GFR 0.47 MG/DL (0.55-1.30); GLOMERULAR FILTRATION RATE > 60.0 (>51); GLUCOSE, FASTING 89 MG/DL (70-100); POTASSIUM SERUM 3.6 MEQ/L (3.5-5.1); SODIUM LEVEL 143 MEQ/L (136-145)
[2021-02-13] MEDS: TIOTROPIUM INHALER/CAPSULE (SPIRIVA) INH SCH (07:26)
[2021-02-13] MEDS: SALMETEROL DISKUS 50MCG INHALER (SEREVENT) INH SCH (07:26)
[2021-02-13] MEDS: ENOXAPARIN 40MG/0.4ML SYRINGE (J1650 PER 10MG) SC SCH (08:35)
[2021-02-13] MEDS: MAGNESIUM OXIDE 400MG TAB (MAG-OX) PO SCH (08:36)
[2021-02-13] MEDS: ASPIRIN 81MG ENTERIC TABLET PO SCH (08:36)
[2021-02-13] MEDS: DRONABINOL 2.5 MG CAP (MARINOL) PO SCH (08:37)
[2021-02-13] MEDS: GABAPENTIN 300 MG CAP PO SCH (08:38)
[2021-02-13] MEDS: POTASSIUM CHLORIDE 10MEQ SR TABLET PO SCH (08:39)
[2021-02-13] MEDS ORDERED: GABA-282 PO (10:23)
[2021-02-13] MEDS ORDERED: LOPE1CAP5 PO (10:25)
[2021-02-13] MEDS ORDERED: LORazepam 0.5 MG TAB PO PRN (10:25)
[2021-02-13 11:26] LABS: FERRITIN 18 NG/ML (8-252); TOTAL PROTEIN 5.4 GM/DL (6.4-8.2)
[2021-02-13] MEDS ORDERED: MIRT-62 PO (12:35)
--- NOTE | 2021-02-13 20:27 | CR ---
CONSULTATION DATE: 02/13/2021 REFERRING PHYSICIAN: Carmelita Wilson MD REASON FOR CONSULTATION: Blurred vision, insomnia and left leg tremor. HISTORY OF PRESENT ILLNESS: Jose Puentes is a 60-year-old woman with a history of colon cancer, status post colectomy and chemotherapy in summer, 2020, anxiety, chronic diarrhea, hypertension, who presented to [facility] with six days history of blurred vision in both eyes. She also has one month history of tremor of left leg. She has restless sensation in her left leg. She sometimes feels fidgety. She states that she has been using glasses for 6 years but there was a change in her vision in both eyes in the last six days. She had mild associated headache with it. She denies any neck pain, back pain, dysphagia, dysarthria, diplopia, urinary incontinence. She has numbness-tingling sensation in her legs and arms due to chemotherapy-induced peripheral neuropathy. She has diarrhea with 4-5 liquid bowel movements a day. This has been going on since her surgery for colon cancer. She was diagnosed with stage III colon cancer. She denies any seizures, falls, loss of consciousness or head injuries. DIAGNOSTIC STUDIES: CT scan of head on my review showed small vessel ischemic disease of brain. MRI scan of brain showed small vessel ischemic disease of brain without acute disease. MRA of brain was normal. Carotid ultrasound showed less than 50% bilateral carotid artery stenosis. Hemostasis was 11.7, normal metabolic profile with positive marijuana in urine due to her use of medical marijuana. HOME MEDICATIONS: 1. Atenolol 25 mg p.o. daily. 2. Diphenoxylate/atropine 2.5/0.025 mg p.o. b.i.d. 3. Dronabinol 5 mg p.o. b.i.d. 4. Gabapentin 300 mg p.o. daily. 5. Levothyroxine 145 mcg p.o. daily. 6. Magnesium oxide 400 mg p.o. daily. 7. Potassium chloride 10 mEq p.o. b.i.d. 8. Prochlorperazine 10 mg p.o. q.h.s. 9. Anoro Elliptica 62.5-25 mcg inhalation daily. 10. Lorazepam 0.5 mg p.o. daily. 11. Zofran 4 mg p.o. q.6 hours p.r.n. ALLERGIES: None. PAST MEDICAL HISTORY: 1. Colon cancer, status post colectomy and ileosigmoid anastomosis. 2. Graves disease. 3. COPD. 4. Anxiety. 5. Endometrial carcinoma. 6. Chronic diarrhea. 7. Protein-calorie malnutrition. 8. Total hysterectomy. 9. Cholecystectomy. 10. Appendectomy. 11. Colectomy. FAMILY HISTORY: Significant for Cruz syndrome. Mother had colon cancer and father had lung cancer. SOCIAL HISTORY: She is a former smoker. She denies smoking, alcohol or illicit drugs. REVIEW OF SYSTEMS: All systems are reviewed and found to be noncontributory except as mentioned in history of present illness. PHYSICAL EXAMINATION: VITAL SIGNS: Temperature 97.8, pulse 85, respiratory rate 16, blood pressure 104/63, 93% saturation on room air. HEART: Regular rate and rhythm. LUNGS: Clear to auscultation. ABDOMEN: Soft, nontender, nondistended. EXTREMITIES: No pedal edema. MUSCULOSKELETAL: No abnormalities. SKIN: No rash. NEUROLOGICAL: No signs of meningeal irritation. The patient is awake, alert, oriented to place, person and time. Normal speech, comprehension and repetition. Extraocular muscles are intact. No facial weakness. Tongue and uvula are midline. 5/5 strength in all four extremities. Deep tendon reflexes are 2+ throughout. Normal sensation throughout. Gait is normal. She has left leg tremor which has distractible component. ASSESSMENT: 1. Blurred vision of unclear etiology without evidence of ischemic stroke. 2. Less than 50% bilateral carotid artery stenosis. 3. Restless legs syndrome and periodic limb movements of sleep. 4. Tremor of left leg. 5. Peripheral neuropathy due to chemotherapy. 6. Insomnia. PLAN: 1. Check vitamin B12, vitamin B1, serum copper, SPEP, etc. 2. She should see ophthalmology for her blurred vision for eye related causes. 3. Mirtazapine 15 mg p.o. q.h.s. 4. Increase gabapentin to 300 mg p.o. b.i.d. or t.i.d. as tolerated. 5. EMG nerve conduction study of arms and legs on outpatient basis. 6. Follow with our office in 1-2 weeks after hospital discharge.
[2021-02-13] MEDS ORDERED: MIRTAZAPINE 15 MG TAB PO SCH (21:00)
[2021-02-14 10:26] LABS: VITAMIN B12 LEVEL 309 PG/ML (247-911)
--- NOTE | 2021-02-14 14:09 | DS.PDOC ---
Discharge Summary General Date of Admission Feb 11, 2021 at 16:29 Date of Discharge 02/13/21 Discharge Summary PROCEDURES PERFORMED DURING STAY: [None]. DISCHARGE DIAGNOSES: Blurred vision of unclear etiology without evidence of ischemic stroke. Restless leg syndrome and periodic limb movement disorders of sleep Tremor of left leg Peripheral neuropathy due to chemotherapy Insomnia Secondary diagnosis Colon cancer with Cruz syn S/p colectomy and ileosigmoid anastomosis March 05, 2020 status post chemotherapy finished in October 2020 Graves disease. COPD. Anxiety. 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 HOSPITAL COURSE: 60-year-old female with past medical history of colon cancer status post colectomy and chemotherapy, anxiety, dysphagia, chronic diarrhea, hypertension, GERD presented to the emergency room with 6 days history of blurriness of vision affecting both eyes and 1 month history of tremors of the left leg. The patient uses glasses which she has been using for 5 to 6 years but then the sudden change of vision happened 6 days ago. Also has some associated headache. She reports that she has difficulty in seeing the phone screen and to see the TV she has to stand right in front of the screen. As I was examining her she said that she could see my face outline but she could not distinguish my features.. She also reports that she has been very restless for the past week unable to sit in 1 place unable to lay down has not been able to sleep at night. She also complains of chronic diarrhea 4-5 times a day liquid brown stools which has been ongoing since her colon surgery. She also complains of right lower quadrant abdominal pain. Evaluation in the ED with a CT head without contrast showed an infarction in the right occipital lobe. MRI and MRA brain negative for any acute infarction or mass or midline shift. CVA ruled out MRI did not show any acute stroke Bilateral blurred vision She has been taking Lomotil which is atropine in it which could cause blurriness of vision I have stopped that and replaced it with Imodium which only has loperamide. Advised to see ophthalmology for her blurred vision for eye related causes. Restlessness/restless legs/tremor of left leg/neuropathy Started on Remeron 15 mg at bed time Follow-up with Dr. Ali in 1 to 2 weeks Will need EMG and NCV of upper and lower extremities. Peripheral neuropathy chemotherapy related Gabapentin increased to 300 twice daily Seen by neurology and ordered vitamin B-12 folate vitamin B6, copper, SPEP Elevated lipase No signs of pancreatic inflammation on CT abdomen pelvis Abdomen benign. Now normalized Colon cancer status post colectomy in ileosigmoid anastomosis status post chemotherapy Has chronic diarrhea with hypokalemia and hypomagnesemia Continue with magnesium and potassium supplements Continue with loperamide Protein calorie malnutrition severe Has a BMI of 17 Albumin of 2.6 There is bitemporal wasting and wasting of small muscles of hands and feet COPD/emphysema Stable We will replace Anoro with Spiriva and formoterol History of Graves' disease status post radioactive iodine treatment Now has secondary hypothyroidism Continue with Synthroid. DISCHARGE MEDICATIONS: Please see below. ALLERGIES: Please see below. PHYSICAL EXAMINATION ON DISCHARGE: VITAL SIGNS: Please see below. General Exam: Positive: Alert, Cooperative, No Acute Distress Eye Exam: Positive: PERRLA, Conjunctiva & lids normal, EOMI; Negative: Sclera icteric ENT Exam: Positive: Atraumatic, Mucous membr. moist/pink, Pharynx Normal, Other ENT (Bitemporal wasting) Neck Exam: Positive: Supple; Negative: JVD, thyromegaly Chest Exam: Positive: Clear to auscultation, Normal air movement Heart Exam: Positive: Rate Normal, Regular Rhythm, Normal S1, Normal S2; Negative: Murmurs, Rubs Abdomen Exam: Positive: Normal bowel sounds, Soft, Tenderness (Right iliac lucas a); Negative: Hepatosplenomegaly Extremity Exam: Positive: Other (Wasting of small muscles of hands and feet); Negative: Clubbing, Cyanosis, Edema Neuro Exam: Positive: Normal Speech, Normal Tone Psych Exam: Positive: Memory Intact, Oriented x 3 LABORATORY DATA: Please see below. IMAGING: MRA of Brain: FINDINGS: Limitations: Patient motion. ANTERIOR CIRCULATION: Right internal carotid artery: Intracranial segment is patent with no significant stenosis. No aneurysm. Right middle cerebral artery: No occlusion or significant stenosis. No aneurysm. Right anterior cerebral artery: Hypoplastic right A1 segment. Left internal carotid artery: Intracranial segment is patent with no significant stenosis. No aneurysm. Left middle cerebral artery: No occlusion or significant stenosis. No aneurysm. Left anterior cerebral artery: No occlusion or significant stenosis. No aneurysm. POSTERIOR CIRCULATION: Right vertebral artery: No occlusion or significant stenosis. No aneurysm. Left vertebral artery: No occlusion or significant stenosis. No aneurysm. Basilar artery: No occlusion or significant stenosis. No aneurysm. Right posterior cerebral artery: origin of the right posterior cerebral artery. Left posterior cerebral artery: origin of the left posterior cerebral artery. IMPRESSION: No hemodynamically significant stenosis or large vessel occlusion. MRI of the brain: FINDINGS: Major vascular flow voids at the skull base are preserved. No extra-axial fluid collection. No hydrocephalus. No midline shift or intracranial mass effect. Nonspecific white matter gliosis, probable chronic microvascular ischemia. No cerebral edema or pathologic susceptibility. No diffusion restriction. Mild paranasal sinus disease. No significant mastoid effusion. IMPRESSION: No acute intracranial abnormality. ACTIVITY: [As tolerated]. DIET: As tolerated DISPOSITION: 01 Home, Self-Care. DISCHARGE INSTRUCTIONS: PMD in 1 week Neurology in 1-2 weeks ITEMS TO FOLLOWUP ON ON OUTPATIENT: Vitamin B12, vitamin B1, serum copper, SPEP, etc. DISCHARGE CONDITION: [Stable]. TIME SPENT ON DISCHARGE: 35 minutes. Vital Signs/I&Os Vital Signs Date Time Temp Pulse Resp B/P (MAP) Pulse Ox O2 Delivery O2 Flow Rate FiO2 02/13/21 06:00 97.8 85 16 104/63 (77) 93 Room Air I&O- Last 24 Hours up to 6 AM 02/14/21 06:00 Intake Total 120 ml Balance 120 ml Microbiology Microbiology 02/11/21 Blood Culture - Preliminary, Resulted No Growth after 72 hours. All specime... 02/11/21 Respiratory Virus Panel (PCR) ([facility]) - Final, Complete 02/11/21 Blood Culture - Preliminary, Resulted No Growth after 72 hours. All specime... Discharge Medications Scheduled Dronabinol (Dronabinol) 5 Mg Capsule, 5 MG PO BID, (Reported) Gabapentin (Gabapentin) 300 Mg Capsule, 300 MG PO BID Levothyroxine Sodium (Levothyroxine Sodium) 125 Mcg Tablet, 125 MCG PO QAM, (Reported) Magnesium Oxide (Magnesium Oxide) 400 Mg Tablet, 1 TAB PO DAILY for constipation Mirtazapine (Remeron) 15 Mg Tablet, 15 MG PO QHS Potassium Chloride (K-Tab ER) 10 Meq Tablet.er, 2 TAB PO DAILY Prochlorperazine Maleate (Prochlorperazine Maleate) 10 Mg Tablet, 10 MG PO QHS, (Reported) Umeclidinium Brm/Vilanterol Tr (Anoro Ellipta 62.5-25 Mcg INH) 1 Each Blst.w.dev, 1 PUFF INH DAILY, (Reported) Scheduled PRN Loperamide HCl (Loperamide) 2 Mg Capsule, 2 MG PO TIDP PRN for DIARRHEA Lorazepam (Ativan) 0.5 Mg Tablet, 0.5 MG PO DAILY PRN for ANXIETY/AGITATION, (Reported) Ondansetron HCl (Ondansetron HCl) 4 Mg Tablet, 4 MG PO Q6H PRN for NAUSEA, (Reported) Allergies Coded Allergies: No Known Allergies (Verified , 11/19/17) Carmelita Wilson MD Feb 14, 2021 14:09
[2021-02-15 13:41] LABS: ALBUMIN 3.06 GM/DL (3.29-5.55); ALBUMIN % 56.7 % (55.8-66.1); ALPHA-1-GLOBULIN % 5.9 % (2.9-4.9); ALPHA-2-GLOBULINS % 13.1 % (7.1-11.8); BETA-1-GLOBULINS % 7.4 % (4.7-7.2); BETA-2-GLOBULINS % 6.4 % (3.2-6.5); GAMMA GLOBULIN % 10.5 % (11.1-18.8)
[2021-02-15 13:42] LABS: ALPHA-1-GLOBULINS 0.32 GM/DL (0.17-0.41); ALPHA-2-GLOBULINS 0.71 GM/DL (0.42-0.99); BETA-2-GLOBULINS 0.35 GM/DL (0.19-0.55); GAMMA GLOBULINS 0.57 GM/DL (0.65-1.58)
== END 2021-02-13 14:35 | disposition home or self-care (01) | DRG 82 ==
LOC: M ED 09:34 → M ED INP 16:29 → M MSPAV 21:13
PROVIDERS: ADMIT Internal Medicine Nephrology; ATTEND Internal Medicine Nephrology
DX: H53.8 Other visual disturbances (principal); E46 Unspecified protein-calorie malnutrition; J43.9 Emphysema, unspecified; R13.10 Dysphagia, unspecified; G62.2 Polyneuropathy due to other toxic agents; F41.9 Anxiety disorder, unspecified; R19.7 Diarrhea, unspecified; G25.81 Restless legs syndrome; G47.00 Insomnia, unspecified; Z92.21 Personal history of antineoplastic chemotherapy; Z85.038 Personal history of other malignant neoplasm of large intestine; Z68.1 Body mass index [BMI] 19.9 or less, adult; I10 Essential (primary) hypertension; K21.9 Gastro-esophageal reflux disease without esophagitis; R25.1 Tremor, unspecified; E03.8 Other specified hypothyroidism; Z79.899 Other long term (current) drug therapy; Z87.891 Personal history of nicotine dependence

== ENCOUNTER 2021-02-25 22:34 | Inpatient (IN) | payer BC ==
[~2021-02-25] VITALS: Ht 162.6 cm; Wt 45.0 kg
[~2021-02-25 22:34] MED LIST changes: +DRON5CAP13 PO; +GABA-282 PO; +LEVO125T4 PO; +LOPE1CAP5 PO; +MIRT-62 PO; +POTA-151 PO; -POTA20TA6 PO; -PROC10TA4 PO; +PROC10TA5 PO
[2021-02-25] MEDS ORDERED: ONDANSETRON 4MG/2ML VIAL IV ONE (23:10)
[2021-02-25] MEDS ORDERED: NS 1,000 ML IV ONE (23:10)
[2021-02-25] MEDS: MORPHINE 4 MG/ML 1ML VIAL/SYRINGE (J2270) IV PRN (23:39)
[2021-02-26 00:07] LABS: BASO % 0.3 % (0.0-1.0); EOS # 0.1 10^3/uL (0.0-0.5); EOS % 0.6 % (0.0-3.0); HEMATOCRIT 43.9 % (36.0-47.0); HEMOGLOBIN 14.3 g/dl (12.0-15.5); LYMPH # 1.6 10^3/uL (1.5-5.0); LYMPH % 13.1 % (24.0-44.0); MEAN CORPUSCULAR HEMOGLOBIN 32.6 pg (27.0-33.0); MEAN CORPUSCULAR HGB CONC 32.6 g/dl (32.0-36.5); MEAN CORPUSCULAR VOLUME 100.2 fl (80.0-96.0); MONO # 1.1 10^3/uL (0.0-0.8); MONO % 9.1 % (2.0-8.0); NEUTROPHILS # 9.1 10^3/uL (1.5-8.5); NEUTROPHILS % 75.8 % (36.0-66.0); PLATELET COUNT, AUTOMATED 287 10^3/uL (150-450); RED BLOOD COUNT 4.38 10^6/uL (4.00-5.40)
[2021-02-26 00:28] LABS: ALBUMIN 2.9 GM/DL (3.2-5.2); ALT/SGPT 21 U/L (12-78); BILIRUBIN,DIRECT 0.3 MG/DL (0.0-0.2); BILIRUBIN,TOTAL 0.6 MG/DL (0.2-1.0); BLOOD UREA NITROGEN 7 MG/DL (7-18); CALCIUM LEVEL 9.4 MG/DL (8.5-10.1); CARBON DIOXIDE LEVEL 30 MEQ/L (21-32); CHLORIDE LEVEL 105 MEQ/L (98-107); CREATININE FOR GFR 0.61 MG/DL (0.55-1.30); GLOMERULAR FILTRATION RATE > 60.0 (>51); GLUCOSE, FASTING 115 MG/DL (70-100); LIPASE 186 U/L (73-393); POTASSIUM SERUM 4.4 MEQ/L (3.5-5.1); SODIUM LEVEL 142 MEQ/L (136-145); TOTAL PROTEIN 6.4 GM/DL (6.4-8.2)
[2021-02-26] MEDS: MORPHINE 4 MG/ML 1ML VIAL/SYRINGE (J2270) IV PRN (00:48)
[2021-02-26] MEDS: GASTROGRAFIN SOLUTION 30ML PO SCH ×2 (01:15→01:24)
[2021-02-26] MEDS ORDERED: HYDROMORPHONE HCL 0.5 MG/ 0.5 ML SYRINGE (J1170 PER 1) IV PRN (02:00)
[2021-02-26] MEDS ORDERED: ISOVUE-370 76% 100ML VIAL As Ordered ONE (02:10)
[2021-02-26] MEDS ORDERED: LOPE1CAP5 PO (05:38)
[2021-02-26] MEDS ORDERED: MIRT-60 PO (05:38)
[2021-02-26] MEDS ORDERED: POTA10TA67 PO (05:38)
[2021-02-26] MEDS ORDERED: GABA-282 PO (05:38)
[2021-02-26] MEDS ORDERED: MAGN400T2 PO (05:38)
[2021-02-26] MEDS ORDERED: HOME MED LIST COMPLETE! XX SCH (05:40)
[2021-02-26] MEDS ORDERED: LEVOTHYROXINE 125MCG TABLET (0.125MG) PO SCH (06:00)
[2021-02-26] MEDS: LR 1,000 ML IV SCH ×3 (06:01→21:04)
[2021-02-26 06:42] LABS: RSV AMPLIFICATION NEGATIVE (NEGATIVE)
[2021-02-26 06:54] LABS: BASO % 0.2 % (0.0-1.0); EOS % 0.3 % (0.0-3.0); HEMATOCRIT 39.9 % (36.0-47.0); HEMOGLOBIN 12.8 g/dl (12.0-15.5); LYMPH % 8.1 % (24.0-44.0); MEAN CORPUSCULAR HEMOGLOBIN 32.1 pg (27.0-33.0); MEAN CORPUSCULAR HGB CONC 32.1 g/dl (32.0-36.5); MONO # 1.2 10^3/uL (0.0-0.8); MONO % 9.6 % (2.0-8.0); NEUTROPHILS # 9.9 10^3/uL (1.5-8.5); NEUTROPHILS % 81.1 % (36.0-66.0); PLATELET COUNT, AUTOMATED 280 10^3/uL (150-450); RED BLOOD COUNT 3.99 10^6/uL (4.00-5.40); WHITE BLOOD COUNT 12.2 10^3/uL (4.0-10.0)
[2021-02-26 07:22] LABS: ALBUMIN 2.5 GM/DL (3.2-5.2); ALT/SGPT 25 U/L (12-78); BILIRUBIN,TOTAL 0.7 MG/DL (0.2-1.0); BLOOD UREA NITROGEN 6 MG/DL (7-18); CALCIUM LEVEL 9.1 MG/DL (8.5-10.1); CARBON DIOXIDE LEVEL 29 MEQ/L (21-32); CHLORIDE LEVEL 107 MEQ/L (98-107); GLOMERULAR FILTRATION RATE > 60.0 (>51); GLUCOSE, FASTING 117 MG/DL (70-100); SODIUM LEVEL 141 MEQ/L (136-145); TOTAL PROTEIN 5.5 GM/DL (6.4-8.2)
[2021-02-26] MEDS ORDERED: PIPERACILLIN/TAZOBACTAM SOD 3.375 GM in D5W MINI-BAG PLUS 50 ML IV ONE (08:00)
[2021-02-26] MEDS ORDERED: metroNIDAZOLE 500 MG in IV 1 EA IV ONE (09:00)
[2021-02-26 10:00] VITALS: BP 105/79
[2021-02-26] MEDS ORDERED: MORPHINE 2 MG/ML 1ML VIAL (J2270) IV PRN (10:30)
[2021-02-26] MEDS: metroNIDAZOLE 500 MG in IV 1 EA IV SCH ×2 (12:15→21:03)
[2021-02-26] MEDS: LEVOTHYROXINE 100MCG (0.1MG) VIAL IV SCH (12:17)
[2021-02-26] MEDS: PIPERACILLIN/TAZOBACTAM SOD 3.375 GM in D5W MINI-BAG PLUS 50 ML IV SCH ×2 (13:24→20:23)
[2021-02-26 14:00] VITALS: BP 105/81
[2021-02-26] MEDS: MORPHINE 2 MG/ML 1ML VIAL (J2270) IV PRN ×2 (17:51→22:42)
[2021-02-26] MEDS: LORazepam 2 MG/ML VIAL IV PRN (21:03)
[2021-02-26 21:17] VITALS: BP 107/78
[2021-02-26] MEDS ORDERED: ACETAMINOPHEN *IV* 650 MG in IV 1 EA IV ONE (22:35)
[2021-02-27] MEDS: PIPERACILLIN/TAZOBACTAM SOD 3.375 GM in D5W MINI-BAG PLUS 50 ML IV SCH ×4 (02:17→21:59)
[2021-02-27] MEDS: metroNIDAZOLE 500 MG in IV 1 EA IV SCH ×3 (04:35→20:13)
[2021-02-27] MEDS: LR 1,000 ML IV SCH ×3 (05:35→21:59)
[2021-02-27 06:00] VITALS: BP 107/75
[2021-02-27] MEDS ORDERED: ACETAMINOPHEN TAB 650MG DOSE (2X325MG) PO PRN (07:20)
[2021-02-27] MEDS: LEVOTHYROXINE 100MCG (0.1MG) VIAL IV SCH (08:17)
[2021-02-27 10:59] LABS: HEMATOCRIT 33.1 % (36.0-47.0); MEAN CORPUSCULAR HEMOGLOBIN 31.8 pg (27.0-33.0); MEAN CORPUSCULAR VOLUME 99.4 fl (80.0-96.0); PLATELET COUNT, AUTOMATED 179 10^3/uL (150-450); RED BLOOD COUNT 3.33 10^6/uL (4.00-5.40); WHITE BLOOD COUNT 4.4 10^3/uL (4.0-10.0)
[2021-02-27 11:00] LABS: HEMOGLOBIN 10.6 g/dl (12.0-15.5)
[2021-02-27 11:16] LABS: BLOOD UREA NITROGEN 6 MG/DL (7-18); CALCIUM LEVEL 8.7 MG/DL (8.5-10.1); CARBON DIOXIDE LEVEL 28 MEQ/L (21-32); CHLORIDE LEVEL 104 MEQ/L (98-107); CREATININE FOR GFR 0.32 MG/DL (0.55-1.30); GLOMERULAR FILTRATION RATE > 60.0 (>51); GLUCOSE, FASTING 76 MG/DL (70-100); MAGNESIUM LEVEL 1.6 MG/DL (1.8-2.4); POTASSIUM SERUM 3.3 MEQ/L (3.5-5.1); SODIUM LEVEL 140 MEQ/L (136-145)
[2021-02-27 14:00] VITALS: BP 124/78
[2021-02-27] MEDS: MORPHINE 2 MG/ML 1ML VIAL (J2270) IV PRN (17:23)
[2021-02-27 21:52] VITALS: BP 129/77
[2021-02-27] MEDS: LORazepam 2 MG/ML VIAL IV PRN (21:59)
[2021-02-28] MEDS ORDERED: LORazepam 2 MG/ML VIAL IV ONE (00:15)
[2021-02-28] MEDS: PIPERACILLIN/TAZOBACTAM SOD 3.375 GM in D5W MINI-BAG PLUS 50 ML IV SCH ×4 (03:28→20:02)
[2021-02-28] MEDS: metroNIDAZOLE 500 MG in IV 1 EA IV SCH ×3 (03:41→21:20)
[2021-02-28] MEDS: LR 1,000 ML IV SCH (03:48)
[2021-02-28 06:00] VITALS: BP 128/77
[2021-02-28 08:16] LABS: HEMATOCRIT 32.8 % (36.0-47.0); HEMOGLOBIN 10.5 g/dl (12.0-15.5); MEAN CORPUSCULAR HEMOGLOBIN 31.7 pg (27.0-33.0); MEAN CORPUSCULAR VOLUME 99.1 fl (80.0-96.0); PLATELET COUNT, AUTOMATED 185 10^3/uL (150-450); RED BLOOD COUNT 3.31 10^6/uL (4.00-5.40); WHITE BLOOD COUNT 4.2 10^3/uL (4.0-10.0)
[2021-02-28] MEDS: LEVOTHYROXINE 100MCG (0.1MG) VIAL IV SCH (08:29)
[2021-02-28 08:53] LABS: BLOOD UREA NITROGEN 4 MG/DL (7-18); CALCIUM LEVEL 8.4 MG/DL (8.5-10.1); CARBON DIOXIDE LEVEL 29 MEQ/L (21-32); CHLORIDE LEVEL 104 MEQ/L (98-107); CREATININE FOR GFR 0.33 MG/DL (0.55-1.30); GLOMERULAR FILTRATION RATE > 60.0 (>51); GLUCOSE, FASTING 64 MG/DL (70-100); MAGNESIUM LEVEL 1.7 MG/DL (1.8-2.4); POTASSIUM SERUM 3.4 MEQ/L (3.5-5.1); SODIUM LEVEL 142 MEQ/L (136-145)
[2021-02-28] MEDS: LORazepam 0.5 MG TAB PO PRN (12:21)
[2021-02-28 14:00] VITALS: BP 130/76
[2021-02-28] MEDS: MORPHINE 2 MG/ML 1ML VIAL (J2270) IV PRN ×2 (18:23→23:06)
[2021-02-28 20:00] VITALS: BP 131/86
[2021-02-28] MEDS ORDERED: RAMELTEON 8 MG TAB (ROZEREM) PO PRN (20:20)
[2021-02-28] MEDS ORDERED: PROCHLORPERAZINE 5 MG TAB (S0183) PO PRN (20:20)
[2021-02-28] MEDS ORDERED: MIRTAZAPINE 15 MG TAB PO SCH (21:00)
[2021-02-28] MEDS: DRONABINOL 2.5MG CAP (MARINOL) PO SCH (21:39)
[2021-03-01] MEDS: PIPERACILLIN/TAZOBACTAM SOD 3.375 GM in D5W MINI-BAG PLUS 50 ML IV SCH (02:26)
[2021-03-01] MEDS ORDERED: CIPROFLOXACIN 500MG TABLET PO SCH (06:00)
[2021-03-01 06:05] LABS: HEMATOCRIT 33.1 % (36.0-47.0); HEMOGLOBIN 10.6 g/dl (12.0-15.5); MEAN CORPUSCULAR VOLUME 96.8 fl (80.0-96.0); PLATELET COUNT, AUTOMATED 183 10^3/uL (150-450); RED BLOOD COUNT 3.42 10^6/uL (4.00-5.40); WHITE BLOOD COUNT 3.5 10^3/uL (4.0-10.0)
[2021-03-01 06:13] VITALS: BP 135/86
[2021-03-01] MEDS: metroNIDAZOLE (FLAGYL) 500MG TABLET PO SCH ×2 (06:16→13:32)
[2021-03-01 06:25] LABS: BLOOD UREA NITROGEN 3 MG/DL (7-18); CARBON DIOXIDE LEVEL 30 MEQ/L (21-32); CHLORIDE LEVEL 105 MEQ/L (98-107); CREATININE FOR GFR 0.34 MG/DL (0.55-1.30); GLOMERULAR FILTRATION RATE > 60.0 (>51); GLUCOSE, FASTING 74 MG/DL (70-100); MAGNESIUM LEVEL 1.7 MG/DL (1.8-2.4); POTASSIUM SERUM 2.8 MEQ/L (3.5-5.1); SODIUM LEVEL 143 MEQ/L (136-145)
[2021-03-01] MEDS ORDERED: POTASSIUM CHLORIDE 10MEQ SR TABLET PO ONE ×2 (06:40→13:00)
[2021-03-01] MEDS: KCL 10MEQ/100ML SWI (KRUN) 10 MEQ in IV 1 EA IV SCH ×2 (06:51→11:36)
[2021-03-01] MEDS ORDERED: MAG SULF 1GM/100ML (MAG RUN) 1 GM in IV 1 EA IV ONE (08:00)
[2021-03-01] MEDS ORDERED: METR-265 PO (08:45)
[2021-03-01] MEDS ORDERED: CIPR-249 PO (08:45)
[2021-03-01] MEDS ORDERED: GABAPENTIN 300 MG CAP PO SCH (09:00)
[2021-03-01] MEDS ORDERED: MAGNESIUM OXIDE 400MG TAB (MAG-OX) PO SCH (09:00)
[2021-03-01] MEDS: DRONABINOL 2.5MG CAP (MARINOL) PO SCH (09:51)
[2021-03-01] MEDS: LEVOTHYROXINE 100MCG (0.1MG) VIAL IV SCH (09:52)
[2021-03-01] MEDS: LORazepam 0.5 MG TAB PO PRN (10:05)
[2021-03-01 12:18] LABS: BLOOD UREA NITROGEN 3 MG/DL (7-18); CALCIUM LEVEL 8.4 MG/DL (8.5-10.1); CARBON DIOXIDE LEVEL 29 MEQ/L (21-32); CHLORIDE LEVEL 104 MEQ/L (98-107); CREATININE FOR GFR 0.35 MG/DL (0.55-1.30); GLOMERULAR FILTRATION RATE > 60.0 (>51); GLUCOSE, FASTING 107 MG/DL (70-100); POTASSIUM SERUM 3.3 MEQ/L (3.5-5.1); SODIUM LEVEL 141 MEQ/L (136-145)
== END 2021-03-01 13:35 | disposition home or self-care (01) | DRG 247 ==
LOC: M ED 22:34 → M ED INP 02-26 05:58 → ENRESERV 02-26 08:55 → M MS5PR 02-26 09:57
PROVIDERS: ADMIT Internal Medicine; ATTEND Internal Medicine
DX: K56.609 Unspecified intestinal obstruction, unspecified as to partial versus complete obstruction (principal); E46 Unspecified protein-calorie malnutrition; K52.9 Noninfective gastroenteritis and colitis, unspecified; E03.9 Hypothyroidism, unspecified; Z85.038 Personal history of other malignant neoplasm of large intestine; Z68.1 Body mass index [BMI] 19.9 or less, adult; Z79.899 Other long term (current) drug therapy; Z92.21 Personal history of antineoplastic chemotherapy; F17.200 Nicotine dependence, unspecified, uncomplicated; J44.9 Chronic obstructive pulmonary disease, unspecified; F41.9 Anxiety disorder, unspecified

== ENCOUNTER 2021-03-10 14:50 | Emergency (ER) | payer BC ==
[~2021-03-10] VITALS: Ht 162.6 cm; Wt 43.0 kg
[~2021-03-10 14:50] MED LIST changes: +CIPR-249 PO; +METR-265 PO; +MIRT-60 PO; +POTA10TA67 PO
[2021-03-10] MEDS ORDERED: OMEP-173 PO (15:12)
[2021-03-10] MEDS ORDERED: LOPE1CAP5 PO (15:12)
[2021-03-10] MEDS ORDERED: GABA-282 PO (15:12)
[2021-03-10] MEDS ORDERED: QUET1TAB17 PO (15:12)
[2021-03-10] MEDS ORDERED: NS 1,000 ML IV ONE (15:50)
[2021-03-10 16:15] LABS: BASO # 0.1 10^3/uL (0.0-0.2); BASO % 0.7 % (0.0-1.0); EOS % 0.1 % (0.0-3.0); HEMATOCRIT 40.1 % (36.0-47.0); LYMPH # 1.5 10^3/uL (1.5-5.0); LYMPH % 19.5 % (24.0-44.0); MEAN CORPUSCULAR HEMOGLOBIN 31.2 pg (27.0-33.0); MEAN CORPUSCULAR HGB CONC 32.4 g/dl (32.0-36.5); MEAN CORPUSCULAR VOLUME 96.2 fl (80.0-96.0); MONO # 0.7 10^3/uL (0.0-0.8); NEUTROPHILS # 5.3 10^3/uL (1.5-8.5); NEUTROPHILS % 70.3 % (36.0-66.0); PLATELET COUNT, AUTOMATED 448 10^3/uL (150-450); RED BLOOD COUNT 4.17 10^6/uL (4.00-5.40); WHITE BLOOD COUNT 7.5 10^3/uL (4.0-10.0)
[2021-03-10 16:42] LABS: INR 0.93; PROTHROMBIN TIME 12.9 SECONDS (12.7-14.5)
[2021-03-10 16:43] LABS: PARTIAL THROMBOPLASTIN TIME 24.6 SECONDS (25.9-37.0)
[2021-03-10 16:44] LABS: ALBUMIN 3.2 GM/DL (3.2-5.2); ALT/SGPT 18 U/L (12-78); BILIRUBIN,DIRECT 0.1 MG/DL (0.0-0.2); BILIRUBIN,TOTAL 0.3 MG/DL (0.2-1.0); BLOOD UREA NITROGEN 9 MG/DL (7-18); CALCIUM LEVEL 9.9 MG/DL (8.5-10.1); CARBON DIOXIDE LEVEL 28 MEQ/L (21-32); CHLORIDE LEVEL 104 MEQ/L (98-107); CREATININE FOR GFR 0.63 MG/DL (0.55-1.30); GLOMERULAR FILTRATION RATE > 60.0 (>51); GLUCOSE, FASTING 111 MG/DL (70-100); LIPASE 194 U/L (73-393); POTASSIUM SERUM 4.1 MEQ/L (3.5-5.1); SODIUM LEVEL 139 MEQ/L (136-145); TOTAL PROTEIN 6.4 GM/DL (6.4-8.2)
[2021-03-10] MEDS ORDERED: ISOVUE-370 76% 100ML VIAL As Ordered ONE (16:45)
[2021-03-10 17:17] LABS: RSV AMPLIFICATION NEGATIVE (NEGATIVE)
[2021-03-10] MEDS ORDERED: MORPHINE 2 MG/ML 1ML VIAL (J2270) IV PRN (18:10)
[2021-03-10] MEDS ORDERED: CIPR-249 PO (19:37)
[2021-03-10] MEDS ORDERED: METR-265 PO (19:37)
[2021-03-10] MEDS ORDERED: CIPROFLOXACIN 500MG TABLET PO ONE (19:40)
[2021-03-10] MEDS ORDERED: metroNIDAZOLE (FLAGYL) 500MG TABLET PO ONE (19:40)
[2021-03-10] MEDS ORDERED: RAMELTEON 8 MG TAB (ROZEREM) PO ONE (19:40)
[2021-03-10 19:45] VITALS: BP 134/89
== END 2021-03-10 20:00 | disposition home or self-care (01) ==
LOC: M ED 14:50
DX: K52.9 Noninfective gastroenteritis and colitis, unspecified (principal); J44.9 Chronic obstructive pulmonary disease, unspecified; F17.200 Nicotine dependence, unspecified, uncomplicated

== ENCOUNTER → 2021-03-25 | Outpatient (CLI) | payer BC ==
[~2021-03-25] MED LIST changes: +BUSP15TA47 PO; +LEVO150T7 PO; +OMEP-173 PO; +PARO5TAB PO; +QUET1TAB17 PO; +ZOLP5TAB PO
== END ==
LOC: M RAD 11:06
PROVIDERS: ATTEND Surgery
DX: R07.9 Chest pain, unspecified (principal)

== ENCOUNTER 2021-05-05 22:15 | Emergency (ER) | payer BC ==
[~2021-05-05 22:15] MED LIST changes: -BUSP15TA47 PO; -LEVO150T7 PO; -PARO5TAB PO; -ZOLP5TAB PO
[2021-05-05 22:48] LABS: HEMATOCRIT 37.1 % (36.0-47.0); HEMOGLOBIN 11.2 g/dl (12.0-15.5); MEAN CORPUSCULAR HEMOGLOBIN 27.9 pg (27.0-33.0); MEAN CORPUSCULAR HGB CONC 30.2 g/dl (32.0-36.5); MEAN CORPUSCULAR VOLUME 92.3 fl (80.0-96.0); PLATELET COUNT, AUTOMATED 258 10^3/uL (150-450); RED BLOOD COUNT 4.02 10^6/uL (4.00-5.40); WHITE BLOOD COUNT 5.3 10^3/uL (4.0-10.0)
[2021-05-05] MEDS ORDERED: ONDANSETRON 4MG/2ML VIAL IV ONE (23:05)
[2021-05-05] MEDS: MORPHINE 4 MG/ML 1ML VIAL/SYRINGE (J2270) IV PRN ×2 (23:09→23:55)
[2021-05-05 23:14] LABS: BLOOD UREA NITROGEN 8 MG/DL (7-18); CALCIUM LEVEL 9.1 MG/DL (8.5-10.1); CARBON DIOXIDE LEVEL 28 MEQ/L (21-32); CHLORIDE LEVEL 109 MEQ/L (98-107); CREATININE FOR GFR 0.71 MG/DL (0.55-1.30); GLOMERULAR FILTRATION RATE > 60.0 (>51); GLUCOSE, FASTING 104 MG/DL (70-100); POTASSIUM SERUM 3.7 MEQ/L (3.5-5.1); SODIUM LEVEL 142 MEQ/L (136-145)
[2021-05-05 23:18] LABS: CK-MB VALUE MASS < 1.0 NG/ML (<3.6); CPK CREATINE PHOSPHOKINASE 31 U/L (26-192); MB/CK RELATIVE INDEX 3.23 (< OR =4)
[2021-05-05] MEDS ORDERED: ISOVUE-370 76% 100ML VIAL As Ordered ONE (23:39)
[2021-05-05 23:47] LABS: ATYPICAL LYMPH 1 % (0-5); LYMPHOCYTES 29 % (16-44); MONOCYTES 6 % (0-5); NEUTROPHILS 64 % (28-66)
[2021-05-05 23:48] LABS: ANISOCYTOSIS 1+; PLATELET ESTIMATE NORMAL (NORMAL); POIKILOCYTOSIS 1+
[2021-05-06 00:22] LABS: ALBUMIN 3.2 GM/DL (3.2-5.2); ALT/SGPT 16 U/L (12-78); BILIRUBIN,DIRECT 0.1 MG/DL (0.0-0.2); LIPASE 185 U/L (73-393); TOTAL PROTEIN 5.8 GM/DL (6.4-8.2)
[2021-05-06 00:23] LABS: CK-MB VALUE MASS < 1.0 NG/ML (<3.6); CPK CREATINE PHOSPHOKINASE 29 U/L (26-192); MB/CK RELATIVE INDEX 3.45 (< OR =4)
[2021-05-06 00:42] LABS: BILIRUBIN,TOTAL < 0.1 MG/DL (0.2-1.0)
[2021-05-06] MEDS ORDERED: PARO5TAB PO (02:50)
[2021-05-06] MEDS ORDERED: LEVO150T7 PO (02:50)
[2021-05-06] MEDS ORDERED: ZOLP5TAB PO (02:50)
[2021-05-06] MEDS ORDERED: BUSP15TA47 PO (02:50)
[2021-05-06] MEDS ORDERED: ATEN25TA PO (02:50)
[2021-05-06] MEDS ORDERED: ONDA4TAB6 PO (02:52)
[2021-05-06 03:15] VITALS: BP 108/78
== END 2021-05-06 04:05 | disposition home or self-care (01) ==
LOC: M ED 22:15
DX: K52.9 Noninfective gastroenteritis and colitis, unspecified (principal); C18.9 Malignant neoplasm of colon, unspecified; I25.10 Atherosclerotic heart disease of native coronary artery without angina pectoris; I45.19 Other right bundle-branch block; J44.9 Chronic obstructive pulmonary disease, unspecified; F41.1 Generalized anxiety disorder; Z85.42 Personal history of malignant neoplasm of other parts of uterus; F17.200 Nicotine dependence, unspecified, uncomplicated; Z79.899 Other long term (current) drug therapy
CPT/HCPCS: 71045; 71275; 74174; 80048; 80076; 82550; 82553; 83690; 84484; 85025; 93005; 93041; 94760; 96374; 96375; 99285; J2270; J2405; Q9967

== ENCOUNTER → 2021-05-12 | Outpatient (CLI) | payer BC ==
[~2021-05-12] MED LIST changes: +BUSP15TA47 PO; +LEVO150T7 PO; +PARO5TAB PO; +ZOLP5TAB PO
== END ==
LOC: M WUC 15:16
PROVIDERS: ATTEND Internal Medicine
DX: M47.812 Spondylosis without myelopathy or radiculopathy, cervical region (principal); M50.321 Other cervical disc degeneration at C4-C5 level; M50.322 Other cervical disc degeneration at C5-C6 level; M48.02 Spinal stenosis, cervical region; M25.78 Osteophyte, vertebrae

== ENCOUNTER → 2021-06-20 | Outpatient (CLI) | payer BC ==
[~2021-06-20] MED LIST changes: +FERR325T3 PO
[2021-06-20 20:38] LABS: FREE T4 1.59 NG/DL (0.76-1.46); THYROID STIMULATING HORMONE < 0.005 uIU/ML (0.358-3.740)
[2021-06-22 12:11] LABS: THRYOGLOBULIN ANTIBODIES (ATA) < 1.0 IU/mL (0.0-0.9); THYROGLOBULIN QUANTITATIVE 1.1 ng/mL (1.5-38.5)
== END ==
LOC: M WUC 15:31
PROVIDERS: ATTEND Nurse Practitioner Family
DX: E89.0 Postprocedural hypothyroidism (principal)

== ENCOUNTER → 2021-07-27 | Outpatient (REF) | payer BC | LOC: M LAB REF 15:54 | PROVIDERS: ATTEND Registered Nurse | DX: R19.7 Diarrhea, unspecified (principal); R10.9 Unspecified abdominal pain ==

== ENCOUNTER → 2021-08-09 | Outpatient (CLI) | payer BC ==
[~2021-08-09] MED LIST changes: +GASTROGRAFIN SOLUTION 30ML (Q9963) As Ordered ONE; +ISOVUE-370 76% 100ML VIAL As Ordered ONE
== END ==
LOC: M RAD 15:57
PROVIDERS: ATTEND Registered Nurse
DX: R10.84 Generalized abdominal pain (principal)
CPT/HCPCS: 74177; Q9963; Q9967

== ENCOUNTER → 2021-09-21 | Outpatient (CLI) | payer BC ==
[~2021-09-21] MED LIST changes: -GASTROGRAFIN SOLUTION 30ML (Q9963) As Ordered ONE; -ISOVUE-370 76% 100ML VIAL As Ordered ONE
== END ==
LOC: M WUC 11:11
PROVIDERS: ATTEND Nurse Practitioner Adult Health
DX: M25.512 Pain in left shoulder (principal); Z85.038 Personal history of other malignant neoplasm of large intestine

== ENCOUNTER → 2021-10-04 | Outpatient (CLI) | payer BC ==
[2021-10-04 10:53] LABS: FREE T4 1.42 NG/DL (0.76-1.46); THYROID STIMULATING HORMONE 0.012 uIU/ML (0.358-3.740)
== END ==
LOC: M WUC 08:10
PROVIDERS: ATTEND Internal Medicine Endocrinology, Diabetes & Metabolism
DX: E89.0 Postprocedural hypothyroidism (principal)

== ENCOUNTER → 2021-10-20 | Outpatient (CLI) | payer BC ==
[~2021-10-20] VITALS: Ht 160 cm; Wt 57.7 kg
[~2021-10-20] MED LIST changes: +HYDR-4514 PO; +METH5SOL PO
[2021-10-20 11:39] VITALS: BP 123/76
== END ==
LOC: M PAL 11:03
PROVIDERS: ATTEND Nurse Practitioner Adult Health
DX: C18.6 Malignant neoplasm of descending colon (principal); Z85.42 Personal history of malignant neoplasm of other parts of uterus; Z15.09 Genetic susceptibility to other malignant neoplasm; G62.0 Drug-induced polyneuropathy; F43.22 Adjustment disorder with anxiety; G56.00 Carpal tunnel syndrome, unspecified upper limb; M43.02 Spondylolysis, cervical region; M54.50 Low back pain, unspecified; I10 Essential (primary) hypertension; K21.9 Gastro-esophageal reflux disease without esophagitis; J44.9 Chronic obstructive pulmonary disease, unspecified; E05.00 Thyrotoxicosis with diffuse goiter without thyrotoxic crisis or storm; Z79.899 Other long term (current) drug therapy; Z79.890 Hormone replacement therapy; Z79.891 Long term (current) use of opiate analgesic; Z51.5 Encounter for palliative care; Z92.21 Personal history of antineoplastic chemotherapy; Z90.49 Acquired absence of other specified parts of digestive tract; M62.838 Other muscle spasm; M25.78 Osteophyte, vertebrae; G89.3 Neoplasm related pain (acute) (chronic); F32.A Depression, unspecified; K27.9 Peptic ulcer, site unspecified, unspecified as acute or chronic, without hemorrhage or perforation; G89.29 Other chronic pain; M54.2 Cervicalgia; Z80.0 Family history of malignant neoplasm of digestive organs; Z80.1 Family history of malignant neoplasm of trachea, bronchus and lung; Z80.42 Family history of malignant neoplasm of prostate; Z92.3 Personal history of irradiation

== ENCOUNTER → 2021-11-10 | Outpatient (REF) | payer BC | LOC: M LAB REF 16:06 | PROVIDERS: ATTEND Internal Medicine | DX: D41.00 Neoplasm of uncertain behavior of unspecified kidney (principal) ==

== ENCOUNTER → 2021-11-17 | Outpatient (REF) | payer BC ==
[2021-11-17 19:47] LABS: BACTERIA, URINE SMALL AMOUNT; CALCIUM OXALATE CRYSTALS,URINE LARGE AMOUNT /hpf; HYALINE CAST, URINE NONE SEEN /lpf (0-1); MUCUS, URINE SMALL AMOUNT (NEGATIVE); RBC, URINE 0-1 /hpf (0-3); SQUAMOUS EPITHELIAL CELL URINE SMALL AMOUNT /hpf (SMALL AMT); WBC, URINE 0-1 /hpf (0-3)
== END ==
LOC: M LAB REF 16:13
PROVIDERS: ATTEND Internal Medicine
DX: R31.9 Hematuria, unspecified (principal)

== ENCOUNTER → 2021-11-17 | Outpatient (CLI) | payer BC ==
[~2021-11-17] VITALS: Ht 157.5 cm; Wt 59.5 kg
[2021-11-17 08:59] VITALS: BP 107/64
== END ==
LOC: M PAL 08:36
PROVIDERS: ATTEND Nurse Practitioner Adult Health
DX: C18.9 Malignant neoplasm of colon, unspecified (principal); F41.9 Anxiety disorder, unspecified; F32.A Depression, unspecified; G62.0 Drug-induced polyneuropathy; G89.29 Other chronic pain; G89.3 Neoplasm related pain (acute) (chronic); I10 Essential (primary) hypertension; K21.9 Gastro-esophageal reflux disease without esophagitis; J44.9 Chronic obstructive pulmonary disease, unspecified; K25.9 Gastric ulcer, unspecified as acute or chronic, without hemorrhage or perforation; E05.00 Thyrotoxicosis with diffuse goiter without thyrotoxic crisis or storm; M47.812 Spondylosis without myelopathy or radiculopathy, cervical region; M25.512 Pain in left shoulder; R10.2 Pelvic and perineal pain; R82.90 Unspecified abnormal findings in urine; Z79.891 Long term (current) use of opiate analgesic; Z79.899 Other long term (current) drug therapy; Z51.5 Encounter for palliative care; Z80.0 Family history of malignant neoplasm of digestive organs; Z80.1 Family history of malignant neoplasm of trachea, bronchus and lung; Z80.42 Family history of malignant neoplasm of prostate; Z87.891 Personal history of nicotine dependence; Z92.3 Personal history of irradiation; Z92.21 Personal history of antineoplastic chemotherapy; Z15.09 Genetic susceptibility to other malignant neoplasm; Z79.890 Hormone replacement therapy; Z85.42 Personal history of malignant neoplasm of other parts of uterus; Z90.49 Acquired absence of other specified parts of digestive tract; Z90.710 Acquired absence of both cervix and uterus; Z63.79 Other stressful life events affecting family and household; Z90.721 Acquired absence of ovaries, unilateral; Z90.79 Acquired absence of other genital organ(s)

== ENCOUNTER → 2021-11-24 | Outpatient (REF) | payer BC ==
[2021-11-24 13:39] LABS: APPEARANCE, URINE MANUAL CLEAR (CLEAR); COLOR, URINE MANUAL LT YELLOW (YELLOW)
[2021-11-24 13:40] LABS: BILIRUBIN, URINE MANUAL NEGATIVE (NEGATIVE); BLOOD URINE MANUAL NEGATIVE (NEGATIVE); GLUCOSE, URINE (UA) MANUAL NEGATIVE (NEGATIVE); KETONE, URINE MANUAL NEGATIVE (NEGATIVE); LEUKOCYTE ESTERASE, URINE MAN NEGATIVE (NEGATIVE); NITRITE, URINE MANUAL NEGATIVE (NEGATIVE); PH,URINE MAN 5.5 UNITS (5.0 - 7.0); PROTEIN, URINE MANUAL NEGATIVE (NEGATIVE); UROBILINOGEN, URINE MANUAL NORMAL (NORMAL)
== END ==
LOC: M LAB REF 12:18
PROVIDERS: ATTEND Internal Medicine
DX: R31.9 Hematuria, unspecified (principal)

== ENCOUNTER → 2021-12-15 | Outpatient (CLI) | payer MEDICAID ==
[~2021-12-15] VITALS: Ht 157.5 cm; Wt 60.0 kg
[~2021-12-15] MED LIST changes: +HYDR-3716 PO
[2021-12-15 08:42] VITALS: BP 151/85
== END ==
LOC: M PAL 08:24
PROVIDERS: ATTEND Nurse Practitioner Adult Health
DX: C18.6 Malignant neoplasm of descending colon (principal); Z85.42 Personal history of malignant neoplasm of other parts of uterus; Z15.09 Genetic susceptibility to other malignant neoplasm; G62.0 Drug-induced polyneuropathy; F43.22 Adjustment disorder with anxiety; G56.00 Carpal tunnel syndrome, unspecified upper limb; M43.02 Spondylolysis, cervical region; M54.50 Low back pain, unspecified; I10 Essential (primary) hypertension; K21.9 Gastro-esophageal reflux disease without esophagitis; J44.9 Chronic obstructive pulmonary disease, unspecified; E05.00 Thyrotoxicosis with diffuse goiter without thyrotoxic crisis or storm; Z79.899 Other long term (current) drug therapy; Z79.890 Hormone replacement therapy; Z79.891 Long term (current) use of opiate analgesic; Z51.5 Encounter for palliative care; Z92.21 Personal history of antineoplastic chemotherapy; Z90.49 Acquired absence of other specified parts of digestive tract; M62.838 Other muscle spasm; M25.78 Osteophyte, vertebrae; G89.3 Neoplasm related pain (acute) (chronic); F32.A Depression, unspecified; K27.9 Peptic ulcer, site unspecified, unspecified as acute or chronic, without hemorrhage or perforation; G89.29 Other chronic pain; M54.2 Cervicalgia; Z80.0 Family history of malignant neoplasm of digestive organs; Z80.1 Family history of malignant neoplasm of trachea, bronchus and lung; Z80.42 Family history of malignant neoplasm of prostate; Z92.3 Personal history of irradiation

== ENCOUNTER → 2022-01-17 | Outpatient (CLI) | payer MEDICAID, OTHER ==
[~2022-01-17] MED LIST changes: +BENZ200C70 PO
== END ==
LOC: M PAL 14:09
PROVIDERS: ATTEND Nurse Practitioner Adult Health
DX: C18.9 Malignant neoplasm of colon, unspecified (principal); G89.3 Neoplasm related pain (acute) (chronic); G62.0 Drug-induced polyneuropathy; Z15.09 Genetic susceptibility to other malignant neoplasm; G25.81 Restless legs syndrome; E05.00 Thyrotoxicosis with diffuse goiter without thyrotoxic crisis or storm; I10 Essential (primary) hypertension; K21.9 Gastro-esophageal reflux disease without esophagitis; K27.3 Acute peptic ulcer, site unspecified, without hemorrhage or perforation; J44.9 Chronic obstructive pulmonary disease, unspecified; R05.9 Cough, unspecified; R10.30 Lower abdominal pain, unspecified; R11.0 Nausea; M54.50 Low back pain, unspecified; M47.20 Other spondylosis with radiculopathy, site unspecified; M54.2 Cervicalgia; K64.9 Unspecified hemorrhoids; R06.02 Shortness of breath; Z85.40 Personal history of malignant neoplasm of unspecified female genital organ; Z90.49 Acquired absence of other specified parts of digestive tract; Z80.0 Family history of malignant neoplasm of digestive organs; Z80.1 Family history of malignant neoplasm of trachea, bronchus and lung; Z87.891 Personal history of nicotine dependence; Z79.891 Long term (current) use of opiate analgesic; F32.89 Other specified depressive episodes; Z79.899 Other long term (current) drug therapy; Z51.5 Encounter for palliative care; Z90.710 Acquired absence of both cervix and uterus; Z92.21 Personal history of antineoplastic chemotherapy

== ENCOUNTER → 2022-01-17 | Outpatient (REF) | payer OTHER, MEDICAID ==
[2022-01-17 14:42] LABS: APPEARANCE, URINE MANUAL HAZY (CLEAR); COLOR, URINE MANUAL YELLOW (YELLOW); SPECIFIC GRAVITY,URINE MANUAL 1.025 (1.002-1.035)
[2022-01-17 14:43] LABS: BILIRUBIN, URINE MANUAL NEGATIVE (NEGATIVE); BLOOD URINE MANUAL TRACE (NEGATIVE); GLUCOSE, URINE (UA) MANUAL NEGATIVE (NEGATIVE); KETONE, URINE MANUAL NEGATIVE (NEGATIVE); LEUKOCYTE ESTERASE, URINE MAN POSITIVE (NEGATIVE); NITRITE, URINE MANUAL NEGATIVE (NEGATIVE); PROTEIN, URINE MANUAL NEGATIVE (NEGATIVE); UROBILINOGEN, URINE MANUAL NORMAL (NORMAL)
[2022-01-17 15:04] LABS: BACTERIA, URINE SMALL AMOUNT; HYALINE CAST, URINE NONE SEEN /lpf (0-1); RBC, URINE 0-1 /hpf (0-3); SQUAMOUS EPITHELIAL CELL URINE SMALL AMOUNT /hpf (SMALL AMT); TRANSITIONAL EPI CELLS, URINE SMALL AMOUNT /hpf
[2022-01-17 15:05] LABS: MUCUS, URINE SMALL AMOUNT (NEGATIVE)
== END ==
LOC: M SMT 13:14
PROVIDERS: ATTEND Urology
DX: R82.89 Other abnormal findings on cytological and histological examination of urine (principal)

== ENCOUNTER 2022-01-19 10:15 | Observation (INO) | payer OTHER ==
[~2022-01-19] VITALS: Ht 162.6 cm; Wt 59.6 kg
[2022-01-19] MEDS ORDERED: OMEP40CA5 (10:24)
[2022-01-19] MEDS ORDERED: ANOR1AER INH (10:24)
[2022-01-19] MEDS ORDERED: methylPREDNISolone 125MG 2ML VIAL IV ONE (11:55)
[2022-01-19] MEDS ORDERED: NS 1,000 ML IV SCH (11:55)
[2022-01-19] MEDS: IPRATROPIUM 0.5MG/ALBUTEROL 2.5MG INH SOL UD 3ML (DUONEB) NEB PRN ×3 (12:38→18:16)
[2022-01-19 13:12] LABS: BASO % 0.9 % (0.0-1.0); EOS % 0.2 % (0.0-3.0); HEMATOCRIT 45.1 % (36.0-47.0); HEMOGLOBIN 14.2 g/dl (12.0-15.5); LYMPH # 0.8 10^3/uL (1.5-5.0); LYMPH % 18.8 % (24.0-44.0); MEAN CORPUSCULAR HEMOGLOBIN 30.1 pg (27.0-33.0); MEAN CORPUSCULAR HGB CONC 31.5 g/dl (32.0-36.5); MEAN CORPUSCULAR VOLUME 95.8 fl (80.0-96.0); MONO # 0.5 10^3/uL (0.0-0.8); MONO % 12.1 % (2.0-8.0); NEUTROPHILS # 2.9 10^3/uL (1.5-8.5); NEUTROPHILS % 67.5 % (36.0-66.0); PLATELET COUNT, AUTOMATED 264 10^3/uL (150-450); RED BLOOD COUNT 4.71 10^6/uL (4.00-5.40); WHITE BLOOD COUNT 4.3 10^3/uL (4.0-10.0)
[2022-01-19 13:45] LABS: BLOOD UREA NITROGEN 7 MG/DL (7-18); CALCIUM LEVEL 9.7 MG/DL (8.5-10.1); CARBON DIOXIDE LEVEL 29 MEQ/L (21-32); CHLORIDE LEVEL 106 MEQ/L (98-107); GLOMERULAR FILTRATION RATE > 60.0 (>51); GLUCOSE, FASTING 112 MG/DL (70-100); POTASSIUM SERUM 4.2 MEQ/L (3.5-5.1); SODIUM LEVEL 140 MEQ/L (136-145)
[2022-01-19 14:25] LABS: RSV AMPLIFICATION NEGATIVE (NEGATIVE)
[2022-01-19] MEDS ORDERED: ISOVUE-370 76% 100ML VIAL As Ordered ONE (15:38)
[2022-01-19] MEDS ORDERED: ALBUTEROL SULFATE 2.5 MG/0.5 ML INH NEB SOLN NEB PRN (15:55)
[2022-01-19] MEDS ORDERED: ONDA-83 PO (16:46)
[2022-01-19] MEDS ORDERED: LEVO88TA3 PO (16:46)
[2022-01-19] MEDS ORDERED: PARO20TA3 PO (16:46)
[2022-01-19] MEDS ORDERED: PROC10TA5 PO (16:47)
[2022-01-19] MEDS ORDERED: HOME MED LIST COMPLETE! XX SCH (16:50)
[2022-01-19] MEDS ORDERED: cefTRIAXone SOD 1 GM in D5W MINI-BAG PLUS 50 ML IV SCH (18:00)
[2022-01-19] MEDS ORDERED: ENOXAPARIN 40MG/0.4ML SYRINGE (J1650 PER 10MG) SC SCH (18:00)
[2022-01-19] MEDS ORDERED: ONDANSETRON 4MG 2ML VIAL IV PRN (18:20)
[2022-01-19] MEDS: SYMBICORT 160/4.5MCG INHALER 6GM INH SCH (20:00)
[2022-01-19] MEDS: IPRATROPIUM 0.5MG/ALBUTEROL 2.5MG INH SOL UD 3ML (DUONEB) NEB SCH (20:00)
[2022-01-19] MEDS: ANEXSIA, NORCO 7.5MG/325MG TABLET(HYDROCODONE/APAP) PO PRN (20:04)
[2022-01-19 21:00] VITALS: BP 136/68; O2SAT 93
[2022-01-19] MEDS ORDERED: PARoxetine 20MG TABLET PO SCH (21:00)
[2022-01-19] MEDS: DOXYCYCLINE HYCLATE 100MG TABLET PO SCH (21:32)
[2022-01-20] VITALS: O2SAT 95
[2022-01-20 00:16] VITALS: BP 130/63
[2022-01-20] MEDS ORDERED: methylPREDNISolone 40MG 1ML VIAL IV SCH (01:00)
[2022-01-20] MEDS: IPRATROPIUM 0.5MG/ALBUTEROL 2.5MG INH SOL UD 3ML (DUONEB) NEB SCH ×2 (01:06→07:20)
[2022-01-20] MEDS: ANEXSIA, NORCO 7.5MG/325MG TABLET(HYDROCODONE/APAP) PO PRN ×2 (01:26→08:04)
[2022-01-20] MEDS ORDERED: RAMELTEON 8 MG TAB (ROZEREM) PO PRN (02:00)
[2022-01-20 04:00] VITALS: O2SAT 91
[2022-01-20 04:14] VITALS: BP 126/60
[2022-01-20 05:50] LABS: HEMOGLOBIN 12.6 g/dl (12.0-15.5); LYMPH # 0.6 10^3/uL (1.5-5.0); MEAN CORPUSCULAR HEMOGLOBIN 29.4 pg (27.0-33.0); MEAN CORPUSCULAR HGB CONC 31.5 g/dl (32.0-36.5); MEAN CORPUSCULAR VOLUME 93.2 fl (80.0-96.0); MONO # 0.2 10^3/uL (0.0-0.8); NEUTROPHILS # 2.6 10^3/uL (1.5-8.5); NEUTROPHILS % 77.4 % (36.0-66.0); PLATELET COUNT, AUTOMATED 237 10^3/uL (150-450); RED BLOOD COUNT 4.29 10^6/uL (4.00-5.40); WHITE BLOOD COUNT 3.4 10^3/uL (4.0-10.0)
[2022-01-20] MEDS ORDERED: LEVOTHYROXINE 88MCG TABLET (0.088 MG) PO SCH (06:00)
[2022-01-20 06:31] LABS: BLOOD UREA NITROGEN 7 MG/DL (7-18); CALCIUM LEVEL 9.3 MG/DL (8.5-10.1); CARBON DIOXIDE LEVEL 26 MEQ/L (21-32); CHLORIDE LEVEL 107 MEQ/L (98-107); GLOMERULAR FILTRATION RATE > 60.0 (>51); GLUCOSE, FASTING 139 MG/DL (70-100); MAGNESIUM LEVEL 1.9 MG/DL (1.8-2.4); POTASSIUM SERUM 3.7 MEQ/L (3.5-5.1); SODIUM LEVEL 138 MEQ/L (136-145)
[2022-01-20] MEDS: SYMBICORT 160/4.5MCG INHALER 6GM INH SCH (07:20)
[2022-01-20] MEDS: DOXYCYCLINE HYCLATE 100MG TABLET PO SCH (08:00)
[2022-01-20 08:25] VITALS: BP 137/76
[2022-01-20] MEDS ORDERED: PRED10TA2 PO (08:45)
[2022-01-20] MEDS ORDERED: DOXY-350 PO (08:45)
[2022-01-20] MEDS ORDERED: PANTOPRAZOLE 40MG TAB (PROTONIX) PO SCH (09:00)
[2022-01-20] MEDS ORDERED: atenoloL 25 MG TAB PO SCH (09:00)
[2022-01-20] MEDS ORDERED: predniSONE 20 MG TAB PO SCH (09:00)
== END 2022-01-20 11:01 | disposition home or self-care (01) ==
LOC: M ED 10:15 → M ED INP 10:16 → M PCU 20:56
PROVIDERS: ADMIT Internal Medicine; ATTEND Internal Medicine
DX: C18.9 Malignant neoplasm of colon, unspecified (principal); J44.1 Chronic obstructive pulmonary disease with (acute) exacerbation; Z85.831 Personal history of malignant neoplasm of soft tissue; K27.9 Peptic ulcer, site unspecified, unspecified as acute or chronic, without hemorrhage or perforation; Z79.52 Long term (current) use of systemic steroids; Z15.09 Genetic susceptibility to other malignant neoplasm; G89.29 Other chronic pain; G62.9 Polyneuropathy, unspecified; Z79.899 Other long term (current) drug therapy; I10 Essential (primary) hypertension; E03.9 Hypothyroidism, unspecified; F32.A Depression, unspecified; G47.00 Insomnia, unspecified; K21.9 Gastro-esophageal reflux disease without esophagitis
CPT/HCPCS: 36415; 36600; 71045; 71046; 71275; 80048; 82803; 83605; 83735; 84145; 85025; 87040; 87631; 87641; 93005; 93041; 94640; 96361; 96365; 96372; 96375; 96376; 97161; 97165; 99285; J0696; J1650; J2920; J2930; Q9967

== ENCOUNTER → 2022-01-24 | Outpatient (REF) | payer OTHER ==
[~2022-01-24] MED LIST changes: +DOXY-350 PO; +LEVO88TA3 PO; +OMEP40CA5; +PARO20TA3 PO
== END ==
LOC: M LAB REF 16:17
PROVIDERS: ATTEND Internal Medicine
DX: D50.9 Iron deficiency anemia, unspecified (principal)

== ENCOUNTER → 2022-03-21 | Outpatient (CLI) | payer OTHER ==
[~2022-03-21] VITALS: Ht 163.8 cm; Wt 65.2 kg
[~2022-03-21] MED LIST changes: -DOXY-350 PO; +DOXY-444 PO; +LEVO75CA2 PO; +OMEP40CA5 PO; -POTA10CA32; +POTA10CA33; +RAME8TAB2 PO
[2022-03-21 14:56] VITALS: BP 145/91
== END ==
LOC: M PAL 14:35
PROVIDERS: ATTEND Nurse Practitioner Adult Health
DX: C18.9 Malignant neoplasm of colon, unspecified (principal); G89.3 Neoplasm related pain (acute) (chronic); G62.0 Drug-induced polyneuropathy; E05.00 Thyrotoxicosis with diffuse goiter without thyrotoxic crisis or storm; I10 Essential (primary) hypertension; K21.9 Gastro-esophageal reflux disease without esophagitis; K27.3 Acute peptic ulcer, site unspecified, without hemorrhage or perforation; J44.9 Chronic obstructive pulmonary disease, unspecified; R10.9 Unspecified abdominal pain; R11.0 Nausea; M54.50 Low back pain, unspecified; M47.20 Other spondylosis with radiculopathy, site unspecified; M54.2 Cervicalgia; K64.9 Unspecified hemorrhoids; R06.02 Shortness of breath; Z85.40 Personal history of malignant neoplasm of unspecified female genital organ; Z90.49 Acquired absence of other specified parts of digestive tract; Z80.1 Family history of malignant neoplasm of trachea, bronchus and lung; Z80.0 Family history of malignant neoplasm of digestive organs; Z79.891 Long term (current) use of opiate analgesic; Z79.899 Other long term (current) drug therapy; F32.89 Other specified depressive episodes; Z90.710 Acquired absence of both cervix and uterus; Z92.21 Personal history of antineoplastic chemotherapy; Z15.09 Genetic susceptibility to other malignant neoplasm

== ENCOUNTER → 2022-04-04 | Outpatient (CLI) | payer OTHER ==
[~2022-04-04] MED LIST changes: +NYST-38 PO; -NYST50SS PO
== END ==
LOC: M PAL 07:57
PROVIDERS: ATTEND Nurse Practitioner Family
DX: C18.9 Malignant neoplasm of colon, unspecified (principal); G89.3 Neoplasm related pain (acute) (chronic); J44.9 Chronic obstructive pulmonary disease, unspecified; G89.29 Other chronic pain; M54.9 Dorsalgia, unspecified; M54.2 Cervicalgia; I10 Essential (primary) hypertension; K21.9 Gastro-esophageal reflux disease without esophagitis; Z15.09 Genetic susceptibility to other malignant neoplasm; F41.9 Anxiety disorder, unspecified; Z80.0 Family history of malignant neoplasm of digestive organs; Z80.42 Family history of malignant neoplasm of prostate; Z79.891 Long term (current) use of opiate analgesic; Z79.899 Other long term (current) drug therapy

== ENCOUNTER → 2022-06-06 | Outpatient (CLI) | payer OTHER ==
[~2022-06-06] MED LIST changes: +GABA600T4; +HYDR-3716; +METH10CO PO; +METH5TA PO; +PAXI20TA30 PO
[2022-06-06 20:02] LABS: FREE T4 1.19 NG/DL (0.89-1.76); THYROID STIMULATING HORMONE 6.911 uIU/ML (0.55-4.78)
== END ==
LOC: M WUC 15:36
PROVIDERS: ATTEND Nurse Practitioner Family
DX: E89.0 Postprocedural hypothyroidism (principal)

== ENCOUNTER → 2022-06-06 | Outpatient (CLI) | payer OTHER | LOC: M PAL 07:47 | PROVIDERS: ATTEND Nurse Practitioner Adult Health | DX: C18.9 Malignant neoplasm of colon, unspecified (principal); G89.3 Neoplasm related pain (acute) (chronic); J44.9 Chronic obstructive pulmonary disease, unspecified; K85.90 Acute pancreatitis without necrosis or infection, unspecified; G89.29 Other chronic pain; M54.9 Dorsalgia, unspecified; M54.2 Cervicalgia; I10 Essential (primary) hypertension; K21.9 Gastro-esophageal reflux disease without esophagitis; Z15.09 Genetic susceptibility to other malignant neoplasm; F41.9 Anxiety disorder, unspecified; Z80.0 Family history of malignant neoplasm of digestive organs; Z80.42 Family history of malignant neoplasm of prostate; Z79.891 Long term (current) use of opiate analgesic; Z79.899 Other long term (current) drug therapy; Z85.00 Personal history of malignant neoplasm of unspecified digestive organ; Z85.41 Personal history of malignant neoplasm of cervix uteri; Z87.891 Personal history of nicotine dependence ==

== ENCOUNTER → 2022-06-13 | Outpatient (REF) | payer OTHER | LOC: M LAB REF 11:11 | PROVIDERS: ATTEND Internal Medicine | DX: R30.0 Dysuria (principal) ==

== ENCOUNTER → 2022-08-08 | Outpatient (CLI) | payer OTHER ==
[~2022-08-08] VITALS: Ht 157.5 cm; Wt 72.7 kg
[~2022-08-08] MED LIST changes: +DULO1CAP4 PO; +INCR1INH INH; +POTA-298 PO; -POTA1TAB14 PO; +PREG100CA PO
[2022-08-08 08:37] VITALS: BP 120/76
== END ==
LOC: M PAL 08:32
PROVIDERS: ATTEND Nurse Practitioner Adult Health
DX: C18.9 Malignant neoplasm of colon, unspecified (principal); G89.3 Neoplasm related pain (acute) (chronic); G62.0 Drug-induced polyneuropathy; Z51.5 Encounter for palliative care; Z92.21 Personal history of antineoplastic chemotherapy; Z92.3 Personal history of irradiation; J44.9 Chronic obstructive pulmonary disease, unspecified; F32.89 Other specified depressive episodes; K27.9 Peptic ulcer, site unspecified, unspecified as acute or chronic, without hemorrhage or perforation; G89.29 Other chronic pain; M47.9 Spondylosis, unspecified; Z79.891 Long term (current) use of opiate analgesic; Z79.890 Hormone replacement therapy; Z79.899 Other long term (current) drug therapy; Z15.09 Genetic susceptibility to other malignant neoplasm; Z80.0 Family history of malignant neoplasm of digestive organs; Z80.1 Family history of malignant neoplasm of trachea, bronchus and lung; Z80.42 Family history of malignant neoplasm of prostate; Z85.42 Personal history of malignant neoplasm of other parts of uterus; Z87.891 Personal history of nicotine dependence; Z90.710 Acquired absence of both cervix and uterus; Z90.49 Acquired absence of other specified parts of digestive tract

== ENCOUNTER → 2022-09-12 | Outpatient (REF) | payer OTHER ==
[~2022-09-12] MED LIST changes: -K-TA10TA2 PO; +POTA-165 PO; -POTA10CA33; +POTA10CA60
[2022-09-12 13:06] LABS: BASO # 0.1 10^3/uL (0.0-0.2); BASO % 1.3 % (0.0-1.0); EOS # 0.1 10^3/uL (0.0-0.5); EOS % 1.9 % (0.0-3.0); HEMATOCRIT 40.4 % (36.0-47.0); HEMOGLOBIN 12.8 g/dl (12.0-15.5); LYMPH # 1.5 10^3/uL (1.5-5.0); LYMPH % 30.8 % (24.0-44.0); MEAN CORPUSCULAR HEMOGLOBIN 29.4 pg (27.0-33.0); MEAN CORPUSCULAR HGB CONC 31.7 g/dl (32.0-36.5); MEAN CORPUSCULAR VOLUME 92.7 fl (80.0-96.0); MONO # 0.5 10^3/uL (0.0-0.8); MONO % 10.6 % (2.0-8.0); NEUTROPHILS # 2.6 10^3/uL (1.5-8.5); NEUTROPHILS % 54.6 % (36.0-66.0); PLATELET COUNT, AUTOMATED 311 10^3/uL (150-450); RED BLOOD COUNT 4.36 10^6/uL (4.00-5.40); WHITE BLOOD COUNT 4.8 10^3/uL (4.0-10.0)
[2022-09-12 13:16] LABS: APPEARANCE, URINE HAZY (CLEAR); BACTERIA, URINE AUTO 1+ (NEGATIVE); BILIRUBIN, URINE AUTO NEGATIVE (NEGATIVE); BLOOD, URINE BLOOD NEGATIVE (NEGATIVE); COLOR, URINE AMBER (YELLOW); GLUCOSE, URINE (UA) AUTO NEGATIVE (NEGATIVE); KETONE, URINE AUTO TRACE mg/dL (NEGATIVE); LEUKOCYTE ESTERASE, URINE AUTO TRACE (NEGATIVE); MUCUS, URINE MODERATE (NEGATIVE); NITRITE, URINE AUTO NEGATIVE (NEGATIVE); PROTEIN, URINE AUTO 1+ mg/dL (NEGATIVE); RBC, URINE AUTO 1 /HPF (0-3); SPECIFIC GRAVITY URINE AUTO 1.024 (1.002-1.035); SQUAMOUS EPITHELIAL CELL UR AU 6 /HPF (0-6); WBC, URINE AUTO 13 /HPF (0-3)
[2022-09-12 13:39] LABS: CPK CREATINE PHOSPHOKINASE 133 U/L (34-145)
[2022-09-12 13:41] LABS: BLOOD UREA NITROGEN < 5 MG/DL (9-23); CARBON DIOXIDE LEVEL 33 MMOL/L (20-31); CHLORIDE LEVEL 104 MMOL/L (98-107); CREATININE FOR GFR 0.72 MG/DL (0.55-1.30); GLOMERULAR FILTRATION RATE > 60.0 (>51); GLUCOSE, FASTING 75 MG/DL (60-100); MAGNESIUM LEVEL 2.2 MG/DL (1.8-2.4); POTASSIUM SERUM 3.1 MMOL/L (3.5-5.1); SODIUM LEVEL 143 MMOL/L (136-145)
== END ==
LOC: M LAB REF 12:22
PROVIDERS: ATTEND Internal Medicine
DX: J44.9 Chronic obstructive pulmonary disease, unspecified (principal); F41.9 Anxiety disorder, unspecified; E66.3 Overweight; R30.0 Dysuria

== ENCOUNTER → 2022-12-19 | Outpatient (CLI) | payer OTHER ==
[~2022-12-19] MED LIST changes: -MIRT-62 PO; +MIRT-88 PO
== END ==
LOC: M RAD 10:56
PROVIDERS: ATTEND Internal Medicine
DX: E07.9 Disorder of thyroid, unspecified (principal)

== ENCOUNTER → 2023-01-22 | Outpatient (CLI) | payer OTHER | LOC: M RAD 13:03 | PROVIDERS: ATTEND Internal Medicine Pulmonary Disease | DX: Z87.891 Personal history of nicotine dependence (principal) ==

== ENCOUNTER → 2023-03-21 | Outpatient (REF) | payer OTHER | LOC: M LAB REF 16:24 | PROVIDERS: ATTEND Internal Medicine | DX: N39.0 Urinary tract infection, site not specified (principal) ==

== ENCOUNTER → 2023-05-15 | Outpatient (CLI) | payer OTHER ==
[~2023-05-15] VITALS: Ht 162.6 cm; Wt 75.3 kg
[~2023-05-15] MED LIST changes: +DIFL200T PO; +HYDR-3713 PO; +PREG50CA PO
[2023-05-15 10:23] VITALS: BP 150/93; O2SAT 93
== END ==
LOC: M PAL 09:54
PROVIDERS: ATTEND Nurse Practitioner Adult Health
DX: G62.0 Drug-induced polyneuropathy (principal); G89.29 Other chronic pain; C18.9 Malignant neoplasm of colon, unspecified; B37.0 Candidal stomatitis; J44.9 Chronic obstructive pulmonary disease, unspecified; Z15.09 Genetic susceptibility to other malignant neoplasm; G89.3 Neoplasm related pain (acute) (chronic); F32.A Depression, unspecified; K27.9 Peptic ulcer, site unspecified, unspecified as acute or chronic, without hemorrhage or perforation; M47.812 Spondylosis without myelopathy or radiculopathy, cervical region; Z51.5 Encounter for palliative care; Z79.891 Long term (current) use of opiate analgesic; Z79.890 Hormone replacement therapy; Z79.899 Other long term (current) drug therapy; Z80.0 Family history of malignant neoplasm of digestive organs; Z80.1 Family history of malignant neoplasm of trachea, bronchus and lung; Z80.42 Family history of malignant neoplasm of prostate; Z80.8 Family history of malignant neoplasm of other organs or systems; Z85.42 Personal history of malignant neoplasm of other parts of uterus; Z87.891 Personal history of nicotine dependence; Z90.49 Acquired absence of other specified parts of digestive tract; Z90.710 Acquired absence of both cervix and uterus; Z90.722 Acquired absence of ovaries, bilateral; Z90.79 Acquired absence of other genital organ(s); Z92.21 Personal history of antineoplastic chemotherapy; Z92.3 Personal history of irradiation

== ENCOUNTER 2023-06-11 17:26 | Inpatient (IN) | payer OTHER ==
[~2023-06-11] VITALS: Ht 162.6 cm; Wt 72.7 kg
[~2023-06-11 17:26] MED LIST changes: -POTA20EL PO; +POTA20LI16 PO
[2023-06-11 18:05] LABS: BASO # 0.1 10^3/uL (0.0-0.2); BASO % 0.5 % (0.0-1.0); EOS # 0.1 10^3/uL (0.0-0.5); EOS % 0.8 % (0.0-3.0); HEMATOCRIT 44.1 % (36.0-47.0); HEMOGLOBIN 14.3 g/dl (12.0-15.5); LYMPH # 1.3 10^3/uL (1.5-5.0); LYMPH % 13.5 % (24.0-44.0); MEAN CORPUSCULAR HEMOGLOBIN 32.1 pg (27.0-33.0); MEAN CORPUSCULAR HGB CONC 32.4 g/dl (32.0-36.5); MEAN CORPUSCULAR VOLUME 98.9 fl (80.0-96.0); MONO # 0.7 10^3/uL (0.0-0.8); MONO % 7.6 % (2.0-8.0); NEUTROPHILS # 7.4 10^3/uL (1.5-8.5); NEUTROPHILS % 77.2 % (36.0-66.0); PLATELET COUNT, AUTOMATED 230 10^3/uL (150-450); RED BLOOD COUNT 4.46 10^6/uL (4.00-5.40); WHITE BLOOD COUNT 9.6 10^3/uL (4.0-10.0)
[2023-06-11 18:34] LABS: LIPASE 31 U/L (12-53)
[2023-06-11 18:37] LABS: ALBUMIN 3.7 G/DL (3.2-5.2); ALKALINE PHOSPHATASE 82 U/L (46-116); ALT/SGPT 13 U/L (7.0-40); AST/SGOT 13 U/L (<34); BILIRUBIN,DIRECT 0.3 MG/DL (<0.4); BILIRUBIN,TOTAL 0.7 MG/DL (0.3-1.2); BLOOD UREA NITROGEN 7 MG/DL (9-23); CALCIUM LEVEL 9.2 MG/DL (8.3-10.6); CARBON DIOXIDE LEVEL 29 MMOL/L (20-31); CHLORIDE LEVEL 106 MMOL/L (98-107); GLOMERULAR FILTRATION RATE > 60.0 (>45); GLUCOSE, FASTING 89 MG/DL (74-106); POTASSIUM SERUM 4.2 MMOL/L (3.5-5.1); SODIUM LEVEL 141 MMOL/L (136-145); TOTAL PROTEIN 6.7 G/DL (5.7-8.2)
[2023-06-11] MEDS ORDERED: ISOVUE-370 76% 100ML VIAL As Ordered ONE (21:50)
[2023-06-11] MEDS: ONDANSETRON 4MG 2ML VIAL IV ONE (21:54)
[2023-06-11] MEDS: MORPHINE 4 MG/ML 1ML VIAL IV ONE (21:54)
[2023-06-11] MEDS: NS 1,000 ML IV ONE (21:55)
[2023-06-11] MEDS: MORPHINE 2 MG/ML 1ML VIAL IV ONE (22:35)
[2023-06-11 22:53] LABS: RSV AMPLIFICATION NEGATIVE (NEGATIVE)
[2023-06-11] MEDS ORDERED: SYNT50TA PO (23:38)
[2023-06-11] MEDS ORDERED: OMEP40CA5 PO (23:38)
[2023-06-12] MEDS ORDERED: MOM 30ML SUSPENSION UDC PO PRN (00:25)
[2023-06-12] MEDS ORDERED: MAALOX 30 ML SUSP *UDC PO PRN (00:25)
[2023-06-12] MEDS ORDERED: PREG50CA PO (00:57)
[2023-06-12] MEDS ORDERED: VITA500T41 PO (00:57)
[2023-06-12] MEDS ORDERED: ALBU2.5V10 INH (00:57)
[2023-06-12] MEDS ORDERED: ALBU8.5H INH (00:57)
[2023-06-12] MEDS ORDERED: SYMB16INH INH (00:57)
[2023-06-12] MEDS ORDERED: DULO20CA27 PO (00:57)
[2023-06-12] MEDS ORDERED: B-650TAB2 PO (00:57)
[2023-06-12] MEDS ORDERED: ACET-1349 PO (00:57)
[2023-06-12] MEDS ORDERED: HOME MED LIST COMPLETE! XX SCH (01:00)
[2023-06-12] MEDS: MORPHINE 2 MG/ML 1ML VIAL IV ONE (01:11)
[2023-06-12] MEDS: metroNIDAZOLE 500 MG in IV 1 EA IV SCH (01:12)
[2023-06-12 01:45] VITALS: BP 146/93; TEMP 98.1; O2SAT 88
[2023-06-12] MEDS: ONDANSETRON 4MG 2ML VIAL IV PRN (02:35)
[2023-06-12] MEDS: ACETAMINOPHEN TAB 650MG DOSE (2X325MG) PO PRN (02:35)
[2023-06-12] MEDS: CIPROFLOXACIN 400 MG in IV 1 EA IV SCH (02:35)
[2023-06-12 06:41] VITALS: BP 101/74; TEMP 97.7; O2SAT 90
[2023-06-12] MEDS: ENOXAPARIN 40MG/0.4ML SYRINGE (J1650 PER 10MG) SC SCH (08:39)
[2023-06-12] MEDS: MORPHINE 10 MG/ML 1ML VIAL IV PRN (09:27)
[2023-06-12 11:22] LABS: BASO % 0.4 % (0.0-1.0); EOS # 0.1 10^3/uL (0.0-0.5); EOS % 0.7 % (0.0-3.0); HEMATOCRIT 39.2 % (36.0-47.0); HEMOGLOBIN 12.7 g/dl (12.0-15.5); LYMPH # 1.1 10^3/uL (1.5-5.0); LYMPH % 15.9 % (24.0-44.0); MEAN CORPUSCULAR HEMOGLOBIN 32.1 pg (27.0-33.0); MEAN CORPUSCULAR HGB CONC 32.4 g/dl (32.0-36.5); MONO # 0.7 10^3/uL (0.0-0.8); MONO % 10.9 % (2.0-8.0); NEUTROPHILS # 4.8 10^3/uL (1.5-8.5); NEUTROPHILS % 71.8 % (36.0-66.0); PLATELET COUNT, AUTOMATED 189 10^3/uL (150-450); RED BLOOD COUNT 3.96 10^6/uL (4.00-5.40); WHITE BLOOD COUNT 6.7 10^3/uL (4.0-10.0)
[2023-06-12 12:01] LABS: PROCALCITONIN <0.04 ng/ml
[2023-06-12 12:05] LABS: BLOOD UREA NITROGEN 8 MG/DL (9-23); CALCIUM LEVEL 8.1 MG/DL (8.3-10.6); CARBON DIOXIDE LEVEL 27 MMOL/L (20-31); CHLORIDE LEVEL 104 MMOL/L (98-107); CREATININE FOR GFR 0.63 MG/DL (0.55-1.30); GLOMERULAR FILTRATION RATE > 60.0 (>45); GLUCOSE, FASTING 120 MG/DL (74-106); POTASSIUM SERUM 3.3 MMOL/L (3.5-5.1); SODIUM LEVEL 137 MMOL/L (136-145)
[2023-06-12 14:00] VITALS: BP 134/84; TEMP 96.6; O2SAT 94
[2023-06-12] MEDS: KCL 10MEQ/100ML SWI (KRUN) 10 MEQ in IV 1 EA IV SCH (14:30)
[2023-06-12] MEDS: NORCO, ANEXSIA 5/325MG TABLET (HYDROcodone/ACETAMINOPHEN) PO PRN (14:38)
[2023-06-12 14:45] VITALS: TEMP 98.2
[2023-06-12] MEDS: TIOTROPIUM INHALER/CAPSULE (SPIRIVA) INH SCH (14:58)
[2023-06-12] MEDS: SYMBICORT 160/4.5MCG INHALER 6GM INH SCH (20:02)
[2023-06-12] MEDS ORDERED: ACETAMINOPHEN 500 MG TAB PO PRN (20:15)
[2023-06-12] MEDS: PREGABALIN 50 MG CAP (LYRICA) PO SCH (21:09)
[2023-06-12] MEDS: OMEPRAZOLE 20MG CAP PO SCH (21:09)
[2023-06-12] MEDS: LEVOTHYROXINE 50MCG TABLET (0.05MG) PO SCH (21:09)
[2023-06-12 21:10] VITALS: BP 162/93
[2023-06-12] MEDS: atenoloL 25 MG TAB PO SCH (21:10)
[2023-06-12 22:00] VITALS: BP 162/93; TEMP 97.3; O2SAT 98
[2023-06-13] MEDS: RAMELTEON 8 MG TAB (ROZEREM) PO PRN (02:28)
[2023-06-13] MEDS: LEVALBUTEROL 1.25MG 0.5ML CONCENTRATE NEB INH PRN (05:10)
[2023-06-13 05:57] VITALS: BP 113/72; TEMP 97.9; O2SAT 91
[2023-06-13 07:15] LABS: HEMOGLOBIN 13.5 g/dl (12.0-15.5); MEAN CORPUSCULAR HEMOGLOBIN 31.9 pg (27.0-33.0); MEAN CORPUSCULAR HGB CONC 32.1 g/dl (32.0-36.5); MEAN CORPUSCULAR VOLUME 99.3 fl (80.0-96.0); PLATELET COUNT, AUTOMATED 197 10^3/uL (150-450); RED BLOOD COUNT 4.23 10^6/uL (4.00-5.40); WHITE BLOOD COUNT 6.7 10^3/uL (4.0-10.0)
[2023-06-13 07:41] LABS: BLOOD UREA NITROGEN 5 MG/DL (9-23); CALCIUM LEVEL 8.6 MG/DL (8.3-10.6); CARBON DIOXIDE LEVEL 27 MMOL/L (20-31); CHLORIDE LEVEL 107 MMOL/L (98-107); CREATININE FOR GFR 0.79 MG/DL (0.55-1.30); GLOMERULAR FILTRATION RATE > 60.0 (>45); GLUCOSE, FASTING 78 MG/DL (74-106); POTASSIUM SERUM 4.3 MMOL/L (3.5-5.1); SODIUM LEVEL 141 MMOL/L (136-145)
[2023-06-13] MEDS: FIDAXOMICIN 200 MG TAB (DIFICID) PO SCH (08:50)
[2023-06-13] MEDS: PYRIDOXINE 50 MG TAB PO SCH (08:50)
[2023-06-13] MEDS: DULoxetine 20MG CAP (CYMBALTA) PO SCH (08:50)
[2023-06-13] MEDS: CYANOCOBALAMIN 500 MCG TAB PO SCH (08:51)
[2023-06-13 15:13] VITALS: BP 127/78; TEMP 98.1; O2SAT 90
[2023-06-13 19:50] VITALS: BP 126/77; TEMP 98.1; O2SAT 93
[2023-06-14 06:43] VITALS: BP 133/68; TEMP 97.7; O2SAT 93
[2023-06-14 07:23] LABS: BASO % 0.6 % (0.0-1.0); EOS # 0.1 10^3/uL (0.0-0.5); EOS % 2.2 % (0.0-3.0); HEMATOCRIT 40.8 % (36.0-47.0); HEMOGLOBIN 13.1 g/dl (12.0-15.5); LYMPH # 1.4 10^3/uL (1.5-5.0); LYMPH % 26.6 % (24.0-44.0); MEAN CORPUSCULAR HEMOGLOBIN 31.3 pg (27.0-33.0); MEAN CORPUSCULAR HGB CONC 32.1 g/dl (32.0-36.5); MEAN CORPUSCULAR VOLUME 97.4 fl (80.0-96.0); MONO # 0.6 10^3/uL (0.0-0.8); MONO % 12.1 % (2.0-8.0); NEUTROPHILS % 58.3 % (36.0-66.0); PLATELET COUNT, AUTOMATED 198 10^3/uL (150-450); RED BLOOD COUNT 4.19 10^6/uL (4.00-5.40); WHITE BLOOD COUNT 5.1 10^3/uL (4.0-10.0)
[2023-06-14 07:57] LABS: BLOOD UREA NITROGEN 7 MG/DL (9-23); CALCIUM LEVEL 8.8 MG/DL (8.3-10.6); CARBON DIOXIDE LEVEL 28 MMOL/L (20-31); CHLORIDE LEVEL 106 MMOL/L (98-107); CREATININE FOR GFR 0.69 MG/DL (0.55-1.30); GLOMERULAR FILTRATION RATE > 60.0 (>45); GLUCOSE, FASTING 74 MG/DL (74-106); POTASSIUM SERUM 4.4 MMOL/L (3.5-5.1); SODIUM LEVEL 141 MMOL/L (136-145)
[2023-06-14] MEDS ORDERED: DIFI200T PO (11:21)
[2023-06-14] MEDS ORDERED: ONDA4TAB6 PO (11:23)
[2023-06-14] MEDS ORDERED: VANC125C3 PO (11:55)
== END 2023-06-14 13:45 | disposition home or self-care (01) | DRG 248 ==
LOC: M ED 17:26 → M ED INP 06-12 00:22 → M MS5PR 06-12 01:40
PROVIDERS: ADMIT Internal Medicine; ATTEND Internal Medicine
DX: A04.72 Enterocolitis due to Clostridium difficile, not specified as recurrent (principal); G62.9 Polyneuropathy, unspecified; I10 Essential (primary) hypertension; J44.9 Chronic obstructive pulmonary disease, unspecified; Z85.038 Personal history of other malignant neoplasm of large intestine; K21.9 Gastro-esophageal reflux disease without esophagitis; Z15.09 Genetic susceptibility to other malignant neoplasm; F32.A Depression, unspecified; Z79.899 Other long term (current) drug therapy; Z85.42 Personal history of malignant neoplasm of other parts of uterus; Z87.891 Personal history of nicotine dependence; G89.3 Neoplasm related pain (acute) (chronic); E89.0 Postprocedural hypothyroidism

== ENCOUNTER → 2023-07-26 | Outpatient (CLI) | payer OTHER ==
[~2023-07-26] VITALS: Ht 162.6 cm; Wt 79.0 kg
[~2023-07-26] MED LIST changes: +ACET-1349 PO; +ALBU2.5V10 INH; +ALBU8.5H INH; +B-650TAB2 PO; +DIFI200T PO; +DIPH1TAB80 PO; -DIPH2.5T14 PO; +DULO20CA27 PO; -MIRT-60 PO; +MIRT-89 PO; +PRED20TA PO; +SYMB16INH INH; +SYNT50TA PO; +VANC125C3 PO; +VITA500T41 PO
[2023-07-26 09:33] VITALS: BP 126/94; O2SAT 91
== END ==
LOC: M PAL 09:03
PROVIDERS: ATTEND Nurse Practitioner Adult Health
DX: G89.3 Neoplasm related pain (acute) (chronic) (principal); G62.0 Drug-induced polyneuropathy; T45.1X5A Adverse effect of antineoplastic and immunosuppressive drugs, initial encounter; G89.29 Other chronic pain; C18.9 Malignant neoplasm of colon, unspecified; J44.9 Chronic obstructive pulmonary disease, unspecified; Z15.09 Genetic susceptibility to other malignant neoplasm; F32.A Depression, unspecified; K27.9 Peptic ulcer, site unspecified, unspecified as acute or chronic, without hemorrhage or perforation; M47.812 Spondylosis without myelopathy or radiculopathy, cervical region; M25.551 Pain in right hip; H61.22 Impacted cerumen, left ear; Z51.5 Encounter for palliative care; Z79.51 Long term (current) use of inhaled steroids; Z79.890 Hormone replacement therapy; Z79.891 Long term (current) use of opiate analgesic; Z79.899 Other long term (current) drug therapy; Z80.0 Family history of malignant neoplasm of digestive organs; Z80.1 Family history of malignant neoplasm of trachea, bronchus and lung; Z80.42 Family history of malignant neoplasm of prostate; Z80.8 Family history of malignant neoplasm of other organs or systems; Z85.42 Personal history of malignant neoplasm of other parts of uterus; Z87.891 Personal history of nicotine dependence; Z90.49 Acquired absence of other specified parts of digestive tract; Z90.710 Acquired absence of both cervix and uterus; Z90.722 Acquired absence of ovaries, bilateral; Z90.79 Acquired absence of other genital organ(s); Z92.21 Personal history of antineoplastic chemotherapy; Z92.3 Personal history of irradiation

== ENCOUNTER → 2023-08-08 | Outpatient (CLI) | payer OTHER ==
[~2023-08-08] MED LIST changes: +DOXY-440 PO; -DOXY-444 PO; -POTA10CA60; +POTA10CA70
== END ==
LOC: M RAD 15:00
PROVIDERS: ATTEND Internal Medicine
DX: M79.605 Pain in left leg (principal)

== ENCOUNTER → 2023-08-16 | Outpatient (CLI) | payer OTHER | LOC: M WUC 11:15 | PROVIDERS: ATTEND Internal Medicine | DX: M25.572 Pain in left ankle and joints of left foot (principal); M77.32 Calcaneal spur, left foot; R22.42 Localized swelling, mass and lump, left lower limb ==

== ENCOUNTER 2023-09-08 17:23 | Emergency (ER) | payer OTHER ==
[~2023-09-08] VITALS: Ht 160 cm; Wt 78.9 kg
[~2023-09-08 17:23] MED LIST changes: +ONDA-282 PO; -ONDA4TAB6 PO
[2023-09-08 18:24] LABS: BASO % 0.3 % (0.0-1.0); EOS # 0.1 10^3/uL (0.0-0.5); EOS % 0.7 % (0.0-3.0); HEMATOCRIT 44.1 % (36.0-47.0); HEMOGLOBIN 14.6 g/dl (12.0-15.5); LYMPH # 1.2 10^3/uL (1.5-5.0); LYMPH % 12.1 % (24.0-44.0); MEAN CORPUSCULAR HEMOGLOBIN 31.7 pg (27.0-33.0); MEAN CORPUSCULAR HGB CONC 33.1 g/dl (32.0-36.5); MEAN CORPUSCULAR VOLUME 95.7 fl (80.0-96.0); MONO # 0.8 10^3/uL (0.0-0.8); NEUTROPHILS # 7.4 10^3/uL (1.5-8.5); NEUTROPHILS % 78.4 % (36.0-66.0); PLATELET COUNT, AUTOMATED 258 10^3/uL (150-450); RED BLOOD COUNT 4.61 10^6/uL (4.00-5.40); WHITE BLOOD COUNT 9.5 10^3/uL (4.0-10.0)
[2023-09-08 18:42] LABS: INR 1.04; PARTIAL THROMBOPLASTIN TIME 27.1 SECONDS (24.8-34.2); PROTHROMBIN TIME 13.3 SECONDS (12.5-14.5)
[2023-09-08 18:47] LABS: CK-MB VALUE MASS < 1.0 NG/ML (<3.6)
[2023-09-08 18:48] LABS: LIPASE 34 U/L (12-53)
[2023-09-08 18:49] LABS: AMYLASE 43 U/L (30-118); CPK CREATINE PHOSPHOKINASE 48 U/L (34-145); MB/CK RELATIVE INDEX 2.08 (< OR =4)
[2023-09-08 18:50] LABS: ALBUMIN 3.4 G/DL (3.2-5.2); ALKALINE PHOSPHATASE 95 U/L (46-116); ALT/SGPT 27 U/L (7.0-40); AST/SGOT 12 U/L (<34); BILIRUBIN,DIRECT 0.3 MG/DL (<0.4); BILIRUBIN,TOTAL 0.7 MG/DL (0.3-1.2); BLOOD UREA NITROGEN 10 MG/DL (9-23); CALCIUM LEVEL 9.3 MG/DL (8.3-10.6); CARBON DIOXIDE LEVEL 30 MMOL/L (20-31); CHLORIDE LEVEL 106 MMOL/L (98-107); CREATININE FOR GFR 0.82 MG/DL (0.55-1.30); GLOMERULAR FILTRATION RATE > 60.0 (>45); GLUCOSE, FASTING 99 MG/DL (74-106); POTASSIUM SERUM 3.6 MMOL/L (3.5-5.1); SODIUM LEVEL 143 MMOL/L (136-145)
[2023-09-08] MEDS: IPRATROPIUM 0.5MG/ALBUTEROL 2.5MG INH SOL UD 3ML (DUONEB) NEB ONE (18:50)
[2023-09-08] MEDS: ALBUTEROL SULFATE 2.5MG/0.5ML INH NEB SOLN INH ONE (18:51)
[2023-09-08 18:52] LABS: THYROID STIMULATING HORMONE 3.537 uIU/ML (0.55-4.78)
[2023-09-08] MEDS: methylPREDNISolone 125MG 2ML VIAL IV ONE (18:53)
[2023-09-08 19:28] LABS: CK-MB VALUE MASS < 1.0 NG/ML (<3.6)
[2023-09-08 19:33] LABS: CPK CREATINE PHOSPHOKINASE 54 U/L (34-145); MB/CK RELATIVE INDEX 1.85 (< OR =4)
[2023-09-08] MEDS: ALBUTEROL 90 MCG/ACT 8GM HFA INHALER INH ONE (20:30)
[2023-09-08] MEDS ORDERED: VENTAER INH (20:58)
[2023-09-08] MEDS ORDERED: PRED20TA PO (20:58)
[2023-09-08 21:20] VITALS: BP 127/66; TEMP 97.4; O2SAT 96
== END 2023-09-08 21:20 | disposition home or self-care (01) ==
LOC: M ED 17:23
DX: J44.1 Chronic obstructive pulmonary disease with (acute) exacerbation (principal); B34.2 Coronavirus infection, unspecified; B34.8 Other viral infections of unspecified site; R00.0 Tachycardia, unspecified; I45.10 Unspecified right bundle-branch block; I10 Essential (primary) hypertension; Z87.891 Personal history of nicotine dependence; Z79.52 Long term (current) use of systemic steroids; Z79.83 Long term (current) use of bisphosphonates; Z79.899 Other long term (current) drug therapy
CPT/HCPCS: 71045; 80047; 80048; 80076; 82150; 82550; 82553; 83605; 83690; 83880; 84443; 84484; 85025; 85610; 85730; 87040; 87070; 87077; 87186; 87205; 87486; 87581; 87633; 87798; 93005; 93041; 94640; 96374; 99284; J2919

== ENCOUNTER → 2023-10-02 | Outpatient (CLI) | payer OTHER ==
[~2023-10-02] VITALS: Ht 162.6 cm; Wt 79.8 kg
[~2023-10-02] MED LIST changes: +LYRI75CA PO; +VENTAER INH
[2023-10-02 09:31] VITALS: BP 119/75; O2SAT 94
== END ==
LOC: M PAL 09:04
PROVIDERS: ATTEND Nurse Practitioner Adult Health
DX: C18.9 Malignant neoplasm of colon, unspecified (principal); G89.3 Neoplasm related pain (acute) (chronic); G62.0 Drug-induced polyneuropathy; T45.1X5A Adverse effect of antineoplastic and immunosuppressive drugs, initial encounter; G89.29 Other chronic pain; J44.9 Chronic obstructive pulmonary disease, unspecified; Z15.09 Genetic susceptibility to other malignant neoplasm; F32.A Depression, unspecified; K27.9 Peptic ulcer, site unspecified, unspecified as acute or chronic, without hemorrhage or perforation; M47.812 Spondylosis without myelopathy or radiculopathy, cervical region; M25.551 Pain in right hip; R06.02 Shortness of breath; R53.83 Other fatigue; Z51.5 Encounter for palliative care; Z79.51 Long term (current) use of inhaled steroids; Z79.890 Hormone replacement therapy; Z79.891 Long term (current) use of opiate analgesic; Z79.899 Other long term (current) drug therapy; Z80.0 Family history of malignant neoplasm of digestive organs; Z80.1 Family history of malignant neoplasm of trachea, bronchus and lung; Z80.42 Family history of malignant neoplasm of prostate; Z80.8 Family history of malignant neoplasm of other organs or systems; Z85.42 Personal history of malignant neoplasm of other parts of uterus; Z87.891 Personal history of nicotine dependence; Z90.49 Acquired absence of other specified parts of digestive tract; Z90.710 Acquired absence of both cervix and uterus; Z90.722 Acquired absence of ovaries, bilateral; Z90.79 Acquired absence of other genital organ(s); Z92.21 Personal history of antineoplastic chemotherapy; Z92.3 Personal history of irradiation

== ENCOUNTER → 2023-10-23 | Outpatient (CLI) | payer OTHER ==
[~2023-10-23] MED LIST changes: +HYDR-4517 PO
== END ==
LOC: M ONCM 08:36
PROVIDERS: ATTEND Dietitian, Registered
DX: C18.9 Malignant neoplasm of colon, unspecified (principal); Z15.09 Genetic susceptibility to other malignant neoplasm; Z71.3 Dietary counseling and surveillance; Z68.29 Body mass index [BMI] 29.0-29.9, adult

== ENCOUNTER → 2023-11-07 | Outpatient (CLI) | payer OTHER ==
[~2023-11-07] VITALS: Ht 162.6 cm; Wt 81.2 kg
[~2023-11-07] MED LIST changes: +ALB2.5NEB INH; +GABA-1490; -GABA600T4; +HYDR-3363 PO; +HYDR-3719 PO; +PROB250C PO
[2023-11-07 09:34] VITALS: BP 132/85; O2SAT 98
== END ==
LOC: M PAL 09:15
PROVIDERS: ATTEND Nurse Practitioner Adult Health
DX: C18.9 Malignant neoplasm of colon, unspecified (principal); G89.3 Neoplasm related pain (acute) (chronic); G89.29 Other chronic pain; G62.0 Drug-induced polyneuropathy; T45.1X5A Adverse effect of antineoplastic and immunosuppressive drugs, initial encounter; R19.7 Diarrhea, unspecified; R11.0 Nausea; J44.9 Chronic obstructive pulmonary disease, unspecified; Z15.09 Genetic susceptibility to other malignant neoplasm; F32.A Depression, unspecified; K27.9 Peptic ulcer, site unspecified, unspecified as acute or chronic, without hemorrhage or perforation; M47.812 Spondylosis without myelopathy or radiculopathy, cervical region; R60.0 Localized edema; Z51.5 Encounter for palliative care; Z79.51 Long term (current) use of inhaled steroids; Z79.890 Hormone replacement therapy; Z79.891 Long term (current) use of opiate analgesic; Z79.899 Other long term (current) drug therapy; Z80.0 Family history of malignant neoplasm of digestive organs; Z80.1 Family history of malignant neoplasm of trachea, bronchus and lung; Z80.42 Family history of malignant neoplasm of prostate; Z80.8 Family history of malignant neoplasm of other organs or systems; Z85.42 Personal history of malignant neoplasm of other parts of uterus; Z87.891 Personal history of nicotine dependence; Z90.49 Acquired absence of other specified parts of digestive tract; Z90.710 Acquired absence of both cervix and uterus; Z90.722 Acquired absence of ovaries, bilateral; Z90.79 Acquired absence of other genital organ(s); Z92.21 Personal history of antineoplastic chemotherapy; Z92.3 Personal history of irradiation

== ENCOUNTER 2023-12-01 12:37 | Inpatient (IN) | payer OTHER, MEDICAID ==
[~2023-12-01] VITALS: Ht 162.6 cm; Wt 79.4 kg
[~2023-12-01 12:37] MED LIST changes: -ALB2.5NEB INH; -HYDR-3363 PO; -HYDR-3719 PO; -PROB250C PO
[2023-12-01] MEDS ORDERED: HYDR-3363 PO (12:52)
[2023-12-01 13:38] LABS: BASO # 0.1 10^3/uL (0.0-0.2); BASO % 1.4 % (0.0-1.0); EOS # 0.2 10^3/uL (0.0-0.5); HEMATOCRIT 39.1 % (36.0-47.0); HEMOGLOBIN 12.7 g/dl (12.0-15.5); LYMPH # 1.2 10^3/uL (1.5-5.0); LYMPH % 26.8 % (24.0-44.0); MEAN CORPUSCULAR HEMOGLOBIN 29.9 pg (27.0-33.0); MEAN CORPUSCULAR HGB CONC 32.5 g/dl (32.0-36.5); MONO # 0.7 10^3/uL (0.0-0.8); MONO % 16.6 % (2.0-8.0); NEUTROPHILS # 2.2 10^3/uL (1.5-8.5); PLATELET COUNT, AUTOMATED 285 10^3/uL (150-450); RED BLOOD COUNT 4.25 10^6/uL (4.00-5.40); WHITE BLOOD COUNT 4.4 10^3/uL (4.0-10.0)
[2023-12-01 13:50] LABS: CK-MB VALUE MASS 1.3 NG/ML (<3.6)
[2023-12-01 13:52] LABS: ALBUMIN 3.3 G/DL (3.2-5.2); ALKALINE PHOSPHATASE 79 U/L (46-116); ALT/SGPT 14 U/L (7.0-40); AST/SGOT 21 U/L (<34); BILIRUBIN,DIRECT < 0.1 MG/DL (<0.4); BILIRUBIN,TOTAL 0.2 MG/DL (0.3-1.2); BLOOD UREA NITROGEN 8 MG/DL (9-23); CALCIUM LEVEL 9.1 MG/DL (8.3-10.6); CARBON DIOXIDE LEVEL 29 MMOL/L (20-31); CHLORIDE LEVEL 110 MMOL/L (98-107); CPK CREATINE PHOSPHOKINASE 70 U/L (34-145); CREATININE FOR GFR 0.68 MG/DL (0.55-1.30); GLOMERULAR FILTRATION RATE > 60.0 (>45); GLUCOSE, FASTING 85 MG/DL (74-106); MAGNESIUM LEVEL 1.8 MG/DL (1.8-2.4); MB/CK RELATIVE INDEX 1.85 (< OR =4); POTASSIUM SERUM 3.7 MMOL/L (3.5-5.1); SODIUM LEVEL 144 MMOL/L (136-145); TOTAL PROTEIN 6.2 G/DL (5.7-8.2)
[2023-12-01] MEDS ORDERED: ISOVUE-370 76% 100ML VIAL As Ordered ONE (14:21)
[2023-12-01] MEDS: methylPREDNISolone 125MG 2ML VIAL IV ONE (16:13)
[2023-12-01] MEDS: FUROSEMIDE 40MG/4ML VIAL IV ONE (16:13)
[2023-12-01] MEDS ORDERED: HYDR-3719 PO (18:42)
[2023-12-01] MEDS ORDERED: VENTAER INH (18:46)
[2023-12-01] MEDS ORDERED: ALB2.5NEB INH (18:46)
[2023-12-01] MEDS ORDERED: HOME MED LIST COMPLETE! XX SCH (18:50)
[2023-12-01] MEDS ORDERED: ALBUTEROL 90 MCG/ACT 8GM HFA INHALER INH PRN (19:20)
[2023-12-01] MEDS: atenoloL 25 MG TAB PO SCH (21:00)
[2023-12-01] MEDS: LEVOTHYROXINE 100MCG TABLET (0.1MG) PO SCH (21:00)
[2023-12-01 21:45] VITALS: O2SAT 93
[2023-12-01] MEDS: SYMBICORT 160/4.5MCG INHALER 6GM INH SCH (21:48)
[2023-12-01] MEDS: IPRATROPIUM 0.5MG/ALBUTEROL 2.5MG INH SOL UD 3ML (DUONEB) NEB SCH (21:48)
[2023-12-01] MEDS: LACTOBACILLUS ACIDOPHILUS CAP (BACID) PO SCH (22:20)
[2023-12-01] MEDS: NORCO, ANEXSIA 5/325MG TABLET (HYDROcodone/ACETAMINOPHEN) PO PRN (22:36)
[2023-12-02] VITALS (9 sets, daily range): BP systolic 119–159; BP diastolic 65–96; TEMP 97.5–98.2; O2SAT 81–98
[2023-12-02] MEDS: LEVOTHYROXINE 100MCG TABLET (0.1MG) PO SCH (06:00)
[2023-12-02 07:21] LABS: HEMATOCRIT 40.5 % (36.0-47.0); MEAN CORPUSCULAR HEMOGLOBIN 29.4 pg (27.0-33.0); MEAN CORPUSCULAR HGB CONC 32.1 g/dl (32.0-36.5); MEAN CORPUSCULAR VOLUME 91.6 fl (80.0-96.0); PLATELET COUNT, AUTOMATED 308 10^3/uL (150-450); RED BLOOD COUNT 4.42 10^6/uL (4.00-5.40); WHITE BLOOD COUNT 3.8 10^3/uL (4.0-10.0)
[2023-12-02 07:42] LABS: BLOOD UREA NITROGEN 11 MG/DL (9-23); CALCIUM LEVEL 9.3 MG/DL (8.3-10.6); CARBON DIOXIDE LEVEL 32 MMOL/L (20-31); CHLORIDE LEVEL 104 MMOL/L (98-107); CREATININE FOR GFR 0.72 MG/DL (0.55-1.30); GLOMERULAR FILTRATION RATE > 60.0 (>45); GLUCOSE, FASTING 133 MG/DL (74-106); SODIUM LEVEL 142 MMOL/L (136-145)
[2023-12-02] MEDS: methylPREDNISolone 40MG 1ML VIAL IV SCH (08:59)
[2023-12-02] MEDS: OMEPRAZOLE 20MG CAP PO SCH (08:59)
[2023-12-02] MEDS ORDERED: predniSONE 20 MG TAB PO SCH (09:00)
[2023-12-02] MEDS: ENOXAPARIN 40MG/0.4ML SYRINGE (J1650 PER 10MG) SC SCH (09:00)
[2023-12-02] MEDS: TIOTROPIUM INHALER/CAPSULE (SPIRIVA) INH SCH (09:07)
[2023-12-02 11:09] LABS: PROCALCITONIN 0.04 ng/ml
[2023-12-02] MEDS: VANCOMYCIN 125MG CAPSULE PO SCH (12:06)
[2023-12-02] MEDS: RAMELTEON 8 MG TAB (ROZEREM) PO PRN (21:46)
[2023-12-03 04:08] VITALS: BP 136/59; TEMP 98.2; O2SAT 93
[2023-12-03 07:38] LABS: HEMATOCRIT 36.4 % (36.0-47.0); HEMOGLOBIN 11.6 g/dl (12.0-15.5); LYMPH # 0.7 10^3/uL (1.5-5.0); MEAN CORPUSCULAR HEMOGLOBIN 29.5 pg (27.0-33.0); MEAN CORPUSCULAR HGB CONC 31.9 g/dl (32.0-36.5); MEAN CORPUSCULAR VOLUME 92.6 fl (80.0-96.0); MONO # 0.5 10^3/uL (0.0-0.8); MONO % 7.7 % (2.0-8.0); NEUTROPHILS # 5.5 10^3/uL (1.5-8.5); NEUTROPHILS % 81.6 % (36.0-66.0); PLATELET COUNT, AUTOMATED 277 10^3/uL (150-450); RED BLOOD COUNT 3.93 10^6/uL (4.00-5.40); WHITE BLOOD COUNT 6.8 10^3/uL (4.0-10.0)
[2023-12-03 08:00] VITALS: BP 124/60; TEMP 97.5; O2SAT 94
[2023-12-03 08:11] LABS: BLOOD UREA NITROGEN 13 MG/DL (9-23); CALCIUM LEVEL 9.1 MG/DL (8.3-10.6); CARBON DIOXIDE LEVEL 31 MMOL/L (20-31); CHLORIDE LEVEL 104 MMOL/L (98-107); CREATININE FOR GFR 0.56 MG/DL (0.55-1.30); GLOMERULAR FILTRATION RATE > 60.0 (>45); GLUCOSE, FASTING 159 MG/DL (74-106); POTASSIUM SERUM 3.4 MMOL/L (3.5-5.1); SODIUM LEVEL 141 MMOL/L (136-145)
[2023-12-03] MEDS: POTASSIUM CHLORIDE 10MEQ SR TABLET PO ONE (10:21)
[2023-12-03 12:00] VITALS: BP_SYST 124; BP_SYST 146; BP_DIAS 60; BP_DIAS 87; TEMP 97.7; O2SAT 94
[2023-12-03 19:48] VITALS: BP 146/85; TEMP 98.2; O2SAT 92
[2023-12-03 20:57] VITALS: BP 146/85
[2023-12-03 23:54] VITALS: BP 140/84; TEMP 97.9; O2SAT 93
[2023-12-04 03:57] VITALS: BP 165/90; TEMP 98.1; O2SAT 91
[2023-12-04 04:02] VITALS: BP 152/86
[2023-12-04 06:34] LABS: HEMATOCRIT 39.2 % (36.0-47.0); HEMOGLOBIN 12.2 g/dl (12.0-15.5); LYMPH # 0.6 10^3/uL (1.5-5.0); MEAN CORPUSCULAR HEMOGLOBIN 29.5 pg (27.0-33.0); MEAN CORPUSCULAR HGB CONC 31.1 g/dl (32.0-36.5); MEAN CORPUSCULAR VOLUME 94.7 fl (80.0-96.0); MONO # 0.3 10^3/uL (0.0-0.8); MONO % 5.8 % (2.0-8.0); NEUTROPHILS # 4.7 10^3/uL (1.5-8.5); NEUTROPHILS % 83.5 % (36.0-66.0); PLATELET COUNT, AUTOMATED 305 10^3/uL (150-450); RED BLOOD COUNT 4.14 10^6/uL (4.00-5.40); WHITE BLOOD COUNT 5.7 10^3/uL (4.0-10.0)
[2023-12-04 06:49] LABS: BLOOD UREA NITROGEN 13 MG/DL (9-23); CALCIUM LEVEL 9.1 MG/DL (8.3-10.6); CARBON DIOXIDE LEVEL 33 MMOL/L (20-31); CHLORIDE LEVEL 104 MMOL/L (98-107); CREATININE FOR GFR 0.59 MG/DL (0.55-1.30); GLOMERULAR FILTRATION RATE > 60.0 (>45); GLUCOSE, FASTING 122 MG/DL (74-106); POTASSIUM SERUM 4.3 MMOL/L (3.5-5.1); SODIUM LEVEL 140 MMOL/L (136-145)
[2023-12-04 08:00] VITALS: BP 161/84; TEMP 98.2; O2SAT 92
[2023-12-04] MEDS: predniSONE 20 MG TAB PO SCH (08:03)
[2023-12-04] MEDS ORDERED: PRED20TA PO (08:34)
[2023-12-04] MEDS ORDERED: SYMB16INH INH (08:34)
[2023-12-04] MEDS ORDERED: VENTAER INH (08:34)
[2023-12-04] MEDS ORDERED: DIFI200T PO (08:35)
[2023-12-04] MEDS ORDERED: PROB250C PO (08:35)
[2023-12-04] MEDS ORDERED: VANC125C3 PO (09:13)
[2023-12-11] MEDS ORDERED: HYDR-3719 PO (10:16)
[2023-12-11] MEDS ORDERED: PREG100CA PO (10:16)
== END 2023-12-04 12:00 | disposition home or self-care (01) | DRG 140 ==
LOC: M ED 12:37 → M ED INP 12:38 → M MS5PR 12-02 01:20 → OBSVTOIN 12-02 13:15
PROVIDERS: ADMIT Internal Medicine; ATTEND Internal Medicine
DX: J44.1 Chronic obstructive pulmonary disease with (acute) exacerbation (principal); A04.72 Enterocolitis due to Clostridium difficile, not specified as recurrent; I27.20 Pulmonary hypertension, unspecified; E03.9 Hypothyroidism, unspecified; I10 Essential (primary) hypertension; K21.9 Gastro-esophageal reflux disease without esophagitis; B96.20 Unspecified Escherichia coli [E. coli] as the cause of diseases classified elsewhere; G89.29 Other chronic pain; F32.A Depression, unspecified; Z92.21 Personal history of antineoplastic chemotherapy; I87.2 Venous insufficiency (chronic) (peripheral); Z79.899 Other long term (current) drug therapy; Z87.891 Personal history of nicotine dependence; Z15.09 Genetic susceptibility to other malignant neoplasm

== ENCOUNTER → 2023-12-11 | Outpatient (CLI) | payer OTHER ==
[~2023-12-11] VITALS: Ht 162.6 cm; Wt 79.7 kg
[~2023-12-11] MED LIST changes: +ALB2.5NEB INH; +HYDR-3363 PO; +HYDR-3719 PO; +PROB250C PO
[2023-12-11 09:30] VITALS: BP 146/86; O2SAT 94
== END ==
LOC: M PAL 09:11 → EEVIPCON 09:30
PROVIDERS: ATTEND Nurse Practitioner Adult Health
DX: C18.9 Malignant neoplasm of colon, unspecified (principal); G89.3 Neoplasm related pain (acute) (chronic); G89.29 Other chronic pain; G62.0 Drug-induced polyneuropathy; T45.1X5A Adverse effect of antineoplastic and immunosuppressive drugs, initial encounter; R19.7 Diarrhea, unspecified; R11.0 Nausea; J44.9 Chronic obstructive pulmonary disease, unspecified; Z15.09 Genetic susceptibility to other malignant neoplasm; F32.A Depression, unspecified; K27.9 Peptic ulcer, site unspecified, unspecified as acute or chronic, without hemorrhage or perforation; M47.812 Spondylosis without myelopathy or radiculopathy, cervical region; R60.0 Localized edema; Z51.5 Encounter for palliative care; Z79.51 Long term (current) use of inhaled steroids; Z79.890 Hormone replacement therapy; Z79.891 Long term (current) use of opiate analgesic; Z79.899 Other long term (current) drug therapy; Z80.0 Family history of malignant neoplasm of digestive organs; Z80.1 Family history of malignant neoplasm of trachea, bronchus and lung; Z80.42 Family history of malignant neoplasm of prostate; Z85.42 Personal history of malignant neoplasm of other parts of uterus; Z87.891 Personal history of nicotine dependence; Z90.49 Acquired absence of other specified parts of digestive tract; Z90.710 Acquired absence of both cervix and uterus; Z90.722 Acquired absence of ovaries, bilateral; Z90.79 Acquired absence of other genital organ(s); Z92.21 Personal history of antineoplastic chemotherapy; Z92.3 Personal history of irradiation

== ENCOUNTER → 2024-01-29 | Outpatient (REF) | payer OTHER ==
[~2024-01-29] MED LIST changes: +GABA-1172 PO; -GABA-282 PO
== END ==
LOC: M SFHCPLAZ 17:15
PROVIDERS: ATTEND Internal Medicine Infectious Disease
DX: A04.72 Enterocolitis due to Clostridium difficile, not specified as recurrent (principal)

== ENCOUNTER → 2024-02-11 | Outpatient (REF) | payer OTHER ==
[2024-02-11 13:33] LABS: APPEARANCE, URINE CLEAR (CLEAR); BACTERIA, URINE AUTO NEGATIVE (NEGATIVE); BILIRUBIN, URINE AUTO NEGATIVE (NEGATIVE); BLOOD, URINE BLOOD NEGATIVE (NEGATIVE); COLOR, URINE YELLOW (YELLOW); GLUCOSE, URINE (UA) AUTO NEGATIVE (NEGATIVE); KETONE, URINE AUTO NEGATIVE (NEGATIVE); LEUKOCYTE ESTERASE, URINE AUTO TRACE (NEGATIVE); MUCUS, URINE SMALL (NEGATIVE); NITRITE, URINE AUTO NEGATIVE (NEGATIVE); PROTEIN, URINE AUTO NEGATIVE (NEGATIVE); RBC, URINE AUTO 0 /HPF (0-3); SPECIFIC GRAVITY URINE AUTO 1.017 (1.002-1.035); SQUAMOUS EPITHELIAL CELL UR AU 1 /HPF (0-6); UROBILINOGEN, URINE AUTO 0.2 mg/dL (0.0-2.0); WBC, URINE AUTO 0 /HPF (0-3)
== END ==
LOC: M SFHCPLAZ 13:05
PROVIDERS: ATTEND Internal Medicine Infectious Disease
DX: N39.41 Urge incontinence (principal)

== ENCOUNTER → 2024-02-27 | Outpatient (CLI) | payer OTHER ==
[~2024-02-27] VITALS: Ht 162.6 cm; Wt 80.4 kg
[~2024-02-27] MED LIST changes: +TREL1AER PO
[2024-02-27 08:13] VITALS: BP 149/88; O2SAT 95
== END ==
LOC: M PAL 07:58
PROVIDERS: ATTEND Nurse Practitioner Adult Health
DX: C18.9 Malignant neoplasm of colon, unspecified (principal); G89.3 Neoplasm related pain (acute) (chronic); G89.29 Other chronic pain; G62.0 Drug-induced polyneuropathy; T45.1X5A Adverse effect of antineoplastic and immunosuppressive drugs, initial encounter; R11.0 Nausea; J44.9 Chronic obstructive pulmonary disease, unspecified; Z15.09 Genetic susceptibility to other malignant neoplasm; F32.A Depression, unspecified; K27.9 Peptic ulcer, site unspecified, unspecified as acute or chronic, without hemorrhage or perforation; M47.812 Spondylosis without myelopathy or radiculopathy, cervical region; Z51.5 Encounter for palliative care; Z79.51 Long term (current) use of inhaled steroids; Z79.890 Hormone replacement therapy; Z79.891 Long term (current) use of opiate analgesic; Z79.899 Other long term (current) drug therapy; Z80.0 Family history of malignant neoplasm of digestive organs; Z80.1 Family history of malignant neoplasm of trachea, bronchus and lung; Z80.42 Family history of malignant neoplasm of prostate; Z85.42 Personal history of malignant neoplasm of other parts of uterus; Z87.891 Personal history of nicotine dependence; Z90.49 Acquired absence of other specified parts of digestive tract; Z90.710 Acquired absence of both cervix and uterus; Z90.722 Acquired absence of ovaries, bilateral; Z90.79 Acquired absence of other genital organ(s); Z92.21 Personal history of antineoplastic chemotherapy; Z92.3 Personal history of irradiation

== ENCOUNTER → 2024-03-10 | Outpatient (CLI) | payer MEDICARE, OTHER ==
[~2024-03-10] MED LIST changes: +ISOVUE-370 76% 100ML VIAL As Ordered ONE
== END ==
LOC: M RAD 09:25
PROVIDERS: ATTEND Nurse Practitioner Adult Health
DX: M54.2 Cervicalgia (principal); M25.512 Pain in left shoulder
CPT/HCPCS: 70491; 73201; Q9967

== ENCOUNTER → 2024-03-18 | Outpatient (REF) | payer MEDICARE, OTHER ==
[~2024-03-18] MED LIST changes: -ISOVUE-370 76% 100ML VIAL As Ordered ONE
[2024-03-18 13:23] LABS: APPEARANCE, URINE HAZY (CLEAR); BACTERIA, URINE AUTO 1+ (NEGATIVE); BILIRUBIN, URINE AUTO NEGATIVE (NEGATIVE); BLOOD, URINE BLOOD NEGATIVE (NEGATIVE); COLOR, URINE YELLOW (YELLOW); GLUCOSE, URINE (UA) AUTO NEGATIVE (NEGATIVE); KETONE, URINE AUTO NEGATIVE (NEGATIVE); LEUKOCYTE ESTERASE, URINE AUTO 2+ (NEGATIVE); MUCUS, URINE SMALL (NEGATIVE); NITRITE, URINE AUTO NEGATIVE (NEGATIVE); PROTEIN, URINE AUTO 1+ mg/dL (NEGATIVE); RBC, URINE AUTO 4 /HPF (0-3); SPECIFIC GRAVITY URINE AUTO 1.028 (1.002-1.035); SQUAMOUS EPITHELIAL CELL UR AU 10 /HPF (0-6); UROBILINOGEN, URINE AUTO 0.2 mg/dL (0.0-2.0); WBC, URINE AUTO 10 /HPF (0-3)
== END ==
LOC: M SMT 12:42
PROVIDERS: ATTEND Nurse Practitioner Family
DX: N39.46 Mixed incontinence (principal)

== ENCOUNTER → 2024-04-11 | Outpatient (CLI) | payer OTHER ==
[~2024-04-11] VITALS: Ht 162.6 cm; Wt 77.3 kg
[2024-04-11 14:37] VITALS: BP 150/85; O2SAT 94
== END ==
LOC: M PAL 14:07
PROVIDERS: ATTEND Family Medicine
DX: Z51.5 Encounter for palliative care (principal); C18.9 Malignant neoplasm of colon, unspecified; Z15.09 Genetic susceptibility to other malignant neoplasm; G89.29 Other chronic pain; F41.9 Anxiety disorder, unspecified; Z79.51 Long term (current) use of inhaled steroids; Z79.890 Hormone replacement therapy; Z79.891 Long term (current) use of opiate analgesic; Z79.899 Other long term (current) drug therapy; Z80.8 Family history of malignant neoplasm of other organs or systems; Z92.21 Personal history of antineoplastic chemotherapy; Z98.890 Other specified postprocedural states

== ENCOUNTER → 2024-06-12 | Outpatient (CLI) | payer OTHER ==
[~2024-06-12] VITALS: Ht 162.6 cm; Wt 75.4 kg
[~2024-06-12] MED LIST changes: +DULO30CA9 PO; +VANC125C13 PO; -VANC125C3 PO
[2024-06-12 14:02] VITALS: BP 157/99; O2SAT 93
== END ==
LOC: M PAL 13:41
PROVIDERS: ATTEND Physician Assistant
DX: C18.9 Malignant neoplasm of colon, unspecified (principal); G62.0 Drug-induced polyneuropathy; G89.29 Other chronic pain; M25.511 Pain in right shoulder; M25.512 Pain in left shoulder; R11.0 Nausea; T45.1X5A Adverse effect of antineoplastic and immunosuppressive drugs, initial encounter; Z15.09 Genetic susceptibility to other malignant neoplasm; Z79.891 Long term (current) use of opiate analgesic; Z79.899 Other long term (current) drug therapy; Z85.42 Personal history of malignant neoplasm of other parts of uterus; Z92.21 Personal history of antineoplastic chemotherapy

== ENCOUNTER 2024-07-27 12:39 | Emergency (ER) | payer MEDICARE, OTHER ==
[~2024-07-27] VITALS: Ht 162.6 cm; Wt 68.7 kg
[~2024-07-27 12:39] MED LIST changes: -DRON5CAP13 PO; +DRON5CAP19 PO; -LEVO75CA2 PO; +LEVO75CA3 PO; +PREG-35 PO; -PREG100CA PO; -PREG50CA PO; +PREG50CA87 PO
[2024-07-27] MEDS ORDERED: SOLI5TAB (13:10)
[2024-07-27] MEDS ORDERED: VIBE75TA (13:10)
[2024-07-27 13:38] LABS: BASO % 0.8 % (0.0-1.0); EOS # 0.1 10^3/uL (0.0-0.5); HEMATOCRIT 47.4 % (36.0-47.0); HEMOGLOBIN 15.6 g/dl (12.0-15.5); LYMPH % 18.7 % (24.0-44.0); MEAN CORPUSCULAR HEMOGLOBIN 31.5 pg (27.0-33.0); MEAN CORPUSCULAR HGB CONC 32.9 g/dl (32.0-36.5); MEAN CORPUSCULAR VOLUME 95.8 fl (80.0-96.0); MONO # 0.4 10^3/uL (0.0-0.8); MONO % 7.3 % (2.0-8.0); NEUTROPHILS # 3.7 10^3/uL (1.5-8.5); NEUTROPHILS % 71.6 % (36.0-66.0); PLATELET COUNT, AUTOMATED 275 10^3/uL (150-450); RED BLOOD COUNT 4.95 10^6/uL (4.00-5.40); WHITE BLOOD COUNT 5.2 10^3/uL (4.0-10.0)
[2024-07-27 14:06] LABS: LIPASE 32 U/L (12-53)
[2024-07-27 14:09] LABS: ALBUMIN 3.8 G/DL (3.2-5.2); ALKALINE PHOSPHATASE 75 U/L (35-104); ALT/SGPT 13 U/L (7.0-40); AST/SGOT 15 U/L (<34); BILIRUBIN,DIRECT 0.1 MG/DL (<0.4); BILIRUBIN,TOTAL 0.4 MG/DL (0.3-1.2); BLOOD UREA NITROGEN 9 MG/DL (9-23); CARBON DIOXIDE LEVEL 29 MMOL/L (20-31); CHLORIDE LEVEL 105 MMOL/L (98-107); CREATININE FOR GFR 0.67 MG/DL (0.55-1.30); GLOMERULAR FILTRATION RATE > 90.0 (>45); GLUCOSE, FASTING 89 MG/DL (74-106); POTASSIUM SERUM 4.4 MMOL/L (3.5-5.1); SODIUM LEVEL 143 MMOL/L (136-145); TOTAL PROTEIN 6.9 G/DL (5.7-8.2)
[2024-07-27] MEDS ORDERED: ISOVUE-370 76% 100ML VIAL As Ordered ONE (14:45)
[2024-07-27] MEDS: NS (Normal Saline) 0.9% 1,000 ML IV ONE (14:47)
[2024-07-27] MEDS: ONDANSETRON 4MG 2ML VIAL IV ONE (14:47)
[2024-07-27 18:24] VITALS: BP 172/80; TEMP 97.8; O2SAT 94
== END 2024-07-27 18:35 | disposition home or self-care (01) ==
LOC: M ED 12:39
DX: R11.2 Nausea with vomiting, unspecified (principal); R19.7 Diarrhea, unspecified; E05.00 Thyrotoxicosis with diffuse goiter without thyrotoxic crisis or storm; K21.9 Gastro-esophageal reflux disease without esophagitis; I10 Essential (primary) hypertension; J44.9 Chronic obstructive pulmonary disease, unspecified; Z87.891 Personal history of nicotine dependence; Z79.52 Long term (current) use of systemic steroids; Z79.83 Long term (current) use of bisphosphonates; Z79.899 Other long term (current) drug therapy; Z79.1 Long term (current) use of non-steroidal anti-inflammatories (NSAID)
CPT/HCPCS: 74177; 80048; 80076; 83690; 85025; 93005; 96361; 96374; 99284; J2405; Q9967

== ENCOUNTER → 2024-07-28 | Outpatient (REF) | payer MEDICARE ==
[~2024-07-28] MED LIST changes: +SOLI5TAB; +VIBE75TA
== END ==
LOC: M LAB REF 11:27
PROVIDERS: ATTEND Emergency Medicine
DX: R19.7 Diarrhea, unspecified (principal)

== ENCOUNTER → 2024-08-12 | Outpatient (CLI) | payer OTHER ==
[~2024-08-12] VITALS: Ht 162.6 cm; Wt 66.3 kg
[2024-08-12 14:18] VITALS: BP 131/94; O2SAT 96
== END ==
LOC: M PAL 13:04
PROVIDERS: ATTEND Physician Assistant
DX: Z51.5 Encounter for palliative care (principal); Z15.09 Genetic susceptibility to other malignant neoplasm; Z85.038 Personal history of other malignant neoplasm of large intestine; Z85.42 Personal history of malignant neoplasm of other parts of uterus; Z92.21 Personal history of antineoplastic chemotherapy; Z90.710 Acquired absence of both cervix and uterus; Z79.891 Long term (current) use of opiate analgesic; Z79.899 Other long term (current) drug therapy

== ENCOUNTER → 2024-09-30 | Outpatient (CLI) | payer MEDICARE, MEDICAID ==
[~2024-09-30] MED LIST changes: +ACETAMINOPHEN 325 MG TAB PO PRN; +CARA1TAB6 PO; -ESSE250T PO; +ISOVUE-370 76% 100 ML VIAL As Ordered ONE; +LIDOCAINE 1% MDV 20 ML VIAL As Ordered ONE; +MAGN250T17 PO; +PEPC1TAB5 PO; +PERCOCET 5MG/325MG TAB PO PRN; +PROT1TAB2 PO
[2024-09-30 14:06] VITALS: TEMP 96.6
[2024-09-30] MEDS: NS (Normal Saline) 0.9% 1,000 ML IV SCH (14:15)
[2024-09-30] MEDS: LIDOCAINE 1% MDV 20 ML VIAL SC SCH (14:15)
[2024-09-30 14:55] LABS: INR 0.97
[2024-09-30] MEDS: MIDAZOLAM INJ 2 MG/2 ML VIAL IV PRN (16:59)
[2024-09-30] MEDS: ONDANSETRON 4MG 2ML VIAL IV STA (18:26)
[2024-09-30 18:30] VITALS: BP 138/81; O2SAT 96
== END ==
LOC: M IRPRO 13:58
PROVIDERS: ATTEND Internal Medicine Infectious Disease
DX: R16.0 Hepatomegaly, not elsewhere classified (principal)
CPT/HCPCS: 47000; 77012; 85610; 88305; 99152; 99153; J2250; J2405; J3010; Q9967

== ENCOUNTER → 2024-10-15 | Outpatient (CLI) | payer OTHER ==
[~2024-10-15] VITALS: Ht 162.6 cm; Wt 66.2 kg
[~2024-10-15] MED LIST changes: -ACETAMINOPHEN 325 MG TAB PO PRN; -ISOVUE-370 76% 100 ML VIAL As Ordered ONE; -LIDOCAINE 1% MDV 20 ML VIAL As Ordered ONE; -PERCOCET 5MG/325MG TAB PO PRN; +PREG25CA63 PO
[2024-10-15 15:11] VITALS: BP 137/86; O2SAT 95
== END ==
LOC: M PAL 14:41
PROVIDERS: ATTEND Family Medicine
DX: Z51.5 Encounter for palliative care (principal); Z15.09 Genetic susceptibility to other malignant neoplasm; G62.9 Polyneuropathy, unspecified; F41.9 Anxiety disorder, unspecified; J44.9 Chronic obstructive pulmonary disease, unspecified; R11.0 Nausea; R52 Pain, unspecified; Z85.038 Personal history of other malignant neoplasm of large intestine; Z85.42 Personal history of malignant neoplasm of other parts of uterus; Z92.21 Personal history of antineoplastic chemotherapy; Z79.51 Long term (current) use of inhaled steroids; Z79.891 Long term (current) use of opiate analgesic; Z79.899 Other long term (current) drug therapy; Z90.710 Acquired absence of both cervix and uterus; Z90.722 Acquired absence of ovaries, bilateral; Z90.79 Acquired absence of other genital organ(s)

== ENCOUNTER → 2024-11-12 | Outpatient (CLI) | payer MEDICARE, MEDICAID ==
[~2024-11-12] MED LIST changes: +GADOXETATE DISODIUM 2.5 MMOL/10 ML VIAL As Ordered ONE
== END ==
LOC: M RAD 14:22
DX: K76.89 Other specified diseases of liver (principal); N28.1 Cyst of kidney, acquired
CPT/HCPCS: 74183; A9581

== ENCOUNTER → 2024-11-19 | Outpatient (CLI) | payer MEDICARE, MEDICAID ==
[~2024-11-19] MED LIST changes: -GADOXETATE DISODIUM 2.5 MMOL/10 ML VIAL As Ordered ONE; +PROHANCE 279.3MG/ML 15ML VIAL As Ordered ONE
== END ==
LOC: M RAD 16:51
DX: C18.9 Malignant neoplasm of colon, unspecified (principal)
CPT/HCPCS: 72197; A9576

== ENCOUNTER → 2024-12-08 | Outpatient (CLI) | payer MEDICARE, MEDICAID ==
[~2024-12-08] VITALS: Ht 162.6 cm; Wt 67.9 kg
[~2024-12-08] MED LIST changes: -PROHANCE 279.3MG/ML 15ML VIAL As Ordered ONE
[2024-12-08 14:21] VITALS: BP 140/81; O2SAT 96
== END ==
LOC: M PAL 13:33
PROVIDERS: ATTEND Physician Assistant
DX: Z51.5 Encounter for palliative care (principal); Z15.09 Genetic susceptibility to other malignant neoplasm; Z85.038 Personal history of other malignant neoplasm of large intestine; Z85.41 Personal history of malignant neoplasm of cervix uteri; Z90.710 Acquired absence of both cervix and uterus; Z92.21 Personal history of antineoplastic chemotherapy; Z79.891 Long term (current) use of opiate analgesic; Z79.899 Other long term (current) drug therapy; Z79.52 Long term (current) use of systemic steroids; Z79.83 Long term (current) use of bisphosphonates

== ENCOUNTER → 2024-12-09 | Outpatient (REF) | payer MEDICARE, MEDICAID ==
[~2024-12-09] MED LIST changes: -ZOLP5TAB PO; +ZOLP5TAB9 PO
== END ==
LOC: M LAB REF 17:04
PROVIDERS: ATTEND Otolaryngology
DX: J02.0 Streptococcal pharyngitis (principal)

== ENCOUNTER → 2024-12-15 | Outpatient (CLI) | payer MEDICARE, OTHER | LOC: M PLARAD 10:00 | PROVIDERS: ATTEND Internal Medicine Medical Oncology | DX: C18.8 Malignant neoplasm of overlapping sites of colon (principal) | CPT/HCPCS: 78815; A9552 ==

== ENCOUNTER → 2024-12-18 | Outpatient (REF) | payer MEDICARE ==
[2024-12-18 14:29] LABS: APPEARANCE, URINE CLEAR (CLEAR); BACTERIA, URINE AUTO NEGATIVE (NEGATIVE); BILIRUBIN, URINE AUTO NEGATIVE (NEGATIVE); BLOOD, URINE BLOOD NEGATIVE (NEGATIVE); GLUCOSE, URINE (UA) AUTO NEGATIVE (NEGATIVE); KETONE, URINE AUTO NEGATIVE (NEGATIVE); LEUKOCYTE ESTERASE, URINE AUTO TRACE (NEGATIVE); MUCUS, URINE SMALL (NEGATIVE); NITRITE, URINE AUTO NEGATIVE (NEGATIVE); PROTEIN, URINE AUTO NEGATIVE (NEGATIVE); RBC, URINE AUTO 1 /HPF (0-3); SPECIFIC GRAVITY URINE AUTO 1.026 (1.002-1.035); SQUAMOUS EPITHELIAL CELL UR AU 1 /HPF (0-6); UROBILINOGEN, URINE AUTO 0.2 mg/dL (0.0-2.0); WBC, URINE AUTO 3 /HPF (0-3)
== END ==
LOC: M LAB REF 12:38
PROVIDERS: ATTEND Internal Medicine
DX: R41.3 Other amnesia (principal)

== ENCOUNTER → 2025-01-06 | Outpatient (CLI) | payer MEDICARE | LOC: M RAD 08:03 | PROVIDERS: ATTEND Internal Medicine Pulmonary Disease | DX: Z87.891 Personal history of nicotine dependence (principal) ==

== ENCOUNTER → 2025-01-06 | Outpatient (CLI) | payer MEDICARE | LOC: M RAD 08:00 | PROVIDERS: ATTEND Internal Medicine Gastroenterology | DX: R10.13 Epigastric pain (principal); K44.9 Diaphragmatic hernia without obstruction or gangrene; K21.9 Gastro-esophageal reflux disease without esophagitis; Z15.09 Genetic susceptibility to other malignant neoplasm; Z80.0 Family history of malignant neoplasm of digestive organs; K76.9 Liver disease, unspecified ==

== ENCOUNTER → 2025-01-15 | Outpatient (CLI) | payer MEDICARE, OTHER ==
[2025-01-15 12:56] LABS: ALT/SGPT 9 U/L (7.0-40); AST/SGOT 11 U/L (<34)
== END ==
LOC: M LAB 11:39
PROVIDERS: ATTEND Otolaryngology
DX: J02.0 Streptococcal pharyngitis (principal)

== ENCOUNTER → 2025-02-11 | Outpatient (CLI) | payer OTHER ==
[~2025-02-11] VITALS: Ht 157.5 cm; Wt 70.6 kg
[~2025-02-11] MED LIST changes: +DULO1CAP6 PO
[2025-02-11 14:42] VITALS: BP 128/74; O2SAT 93
== END ==
LOC: M PAL 14:28
PROVIDERS: ATTEND Physician Assistant
DX: Z51.5 Encounter for palliative care (principal); Z15.09 Genetic susceptibility to other malignant neoplasm; Z85.038 Personal history of other malignant neoplasm of large intestine; Z85.42 Personal history of malignant neoplasm of other parts of uterus; Z92.21 Personal history of antineoplastic chemotherapy; Z90.710 Acquired absence of both cervix and uterus; Z79.891 Long term (current) use of opiate analgesic; Z79.899 Other long term (current) drug therapy; Z79.83 Long term (current) use of bisphosphonates

== ENCOUNTER → 2025-02-24 | Outpatient (CLI) | payer OTHER ==
[~2025-02-24] VITALS: Ht 162.6 cm; Wt 68.8 kg
[~2025-02-24] MED LIST changes: +POTA-232 PO; -POTA10TA67 PO
[2025-02-24 14:57] VITALS: BP 120/68; O2SAT 94
== END ==
LOC: M PAL 14:37
PROVIDERS: ATTEND Physician Assistant
DX: Z51.5 Encounter for palliative care (principal); Z15.09 Genetic susceptibility to other malignant neoplasm; Z85.038 Personal history of other malignant neoplasm of large intestine; Z85.42 Personal history of malignant neoplasm of other parts of uterus; Z92.21 Personal history of antineoplastic chemotherapy; Z79.891 Long term (current) use of opiate analgesic; Z79.899 Other long term (current) drug therapy; Z79.83 Long term (current) use of bisphosphonates; Z79.52 Long term (current) use of systemic steroids

== ENCOUNTER → 2025-03-24 | Outpatient (CLI) | payer OTHER ==
[~2025-03-24] MED LIST changes: +PROHANCE 279.3MG/ML 15ML VIAL As Ordered ONE
== END ==
LOC: M RAD 09:13
PROVIDERS: ATTEND Physician Assistant
DX: R41.3 Other amnesia (principal); F22 Delusional disorders; R41.0 Disorientation, unspecified; I67.89 Other cerebrovascular disease
CPT/HCPCS: 70553; A9579

== ENCOUNTER → 2025-03-31 | Outpatient (REF) | payer OTHER, MEDICAID ==
[~2025-03-31] MED LIST changes: -PROHANCE 279.3MG/ML 15ML VIAL As Ordered ONE
== END ==
LOC: M LAB REF 12:06
PROVIDERS: ATTEND Internal Medicine
DX: R32 Unspecified urinary incontinence (principal)